=== PATIENT | male | born 1995 | race African-American/Black ===

== ENCOUNTER 2016-04-01 21:37 | Observation (INO) | payer OTHER ==
[~2016-04-01] VITALS: Ht 154.9 cm; Wt 59.2 kg
--- NOTE | 2016-04-01 22:08 | PD ---
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 The patient is not suicidal. He has no physical complaints. He states that he ate dinner tonight. The patient is unable to provide any meaningful history. Youssef act paper work states that the patient is unable to care for himself and therefore at risk for self-harm. PFSH Past Medical History Musculoskeletal: Yes (DANDY WALKER SYNDROME) Social History Alcohol Use: No Tobacco Use: No Substance Use: No Allergies-Medications (Allergen,Severity, Reaction): Coded Allergies: No Known Allergies (Unverified , 04/01/16) Reported Meds & Prescriptions Reported Meds & Active Scripts Active No Active Prescriptions or Reported Medications Review of Systems ROS Limitations: Poor Historian Except as stated in HPI: all other systems reviewed are Neg Physical Exam Exam Limitations: Poor Historian Narrative GENERAL: Diminutive black male in no acute distress. SKIN: Warm and dry. HEAD: Atraumatic. Normocephalic. EYES: Pupils equal and round. No scleral icterus. No injection or drainage. ENT: No nasal bleeding or discharge. Mucous membranes pink and moist. NECK: Trachea midline. No JVD. CARDIOVASCULAR: Regular rate and rhythm. No murmur appreciated. RESPIRATORY: No accessory muscle use. Clear to auscultation. Breath sounds equal bilaterally. GASTROINTESTINAL: Abdomen soft, non-tender, nondistended. Hepatic and splenic margins not palpable. MUSCULOSKELETAL: No clubbing. No cyanosis. No edema. Patient is ambulatory and moves easily from standing to sitting. NEUROLOGICAL: Awake and alert. No obvious cranial nerve deficits. Motor grossly within normal limits. PSYCHIATRIC: Appropriate mood and affect. Intellectual capacity in the range of an 1-31-yndc-old. 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 The patient is not suicidal. He has no physical complaints. The patient is unable to provide any meaningful history. Circadence act paper work states that the patient is unable to care for himself and therefore at risk for self-harm. Vitals reviewed. Physical exam reveals a MR male in no acute distress but is otherwise unremarkable. The patient has the mental capacity of an 6-55-[id number]-old. I don' t see any need for laboratory evaluation at this time. Review of the record reveals the patient left without being seen today. A sitter is with the patient now. DCF has been contacted. Patient will be discharged into their custody. Diagnosis Primary Impression: Encounter for medical screening examination Referrals: Primary Care Physician Scripts No Active Prescriptions or Reported Meds Disposition: 65 DISC TO PSYCH CARE FACILITY (per DCF) Condition: Stable Kelly Jama Apr 01, 2016 22:08
[2016-04-01 22:10] VITALS: BP 164/80; PULSE 97; RESP 14; TEMP 99; O2SAT 96
[2016-04-02 06:04] VITALS: BP 166/99; PULSE 104; RESP 15; O2SAT 100
[2016-04-02 07:48] VITALS: BP 176/81; PULSE 106; RESP 20; O2SAT 99
[2016-04-02 12:47] VITALS: BP 170/99; PULSE 83; RESP 20; O2SAT 99
[2016-04-02 18:21] VITALS: BP 148/94; PULSE 95; RESP 20; O2SAT 98
--- NOTE | 2016-04-02 20:03 | HHI.HP ---
[facility] Service [facility] Primary Care Physician Unknown Admission Diagnosis unsafe discharge Diagnoses: (1) Total self-care deficit Diagnosis: Principal (2) Dandy Walker malformation Diagnosis: Principal (3) Mental retardation Diagnosis: Principal Travel History International Travel<30 Days: No Contact w/Intl Traveler <30 Da: No Traveled to Known Affected Are: No History of Present Illness This is an unfortunate 21-year-old male with PMH of Dandy Walker Syndrome and Mental Retardation was brought to the ER under Youssef Act by PD for placement into long-term facility as patient found wandering in the streets and is unable to care for self. Patient currently without complaints. Case Management and DCF involved. Per CM notes, pt was recently placed in custodial, [facility], however per father pt was kicked out after being there for only 8hrs after harassing another resident, however upon further investigation, [facility] reports pt was not kicked out, he simply wandered off the property as facility is unlocked, report Father was dishonest about pt's cognitive ability and [facility] not equipped to care for patient, Father unwilling to care for pt per report. Seen by DCF in ER, however unable to obtain placement. We were asked to admit pending placement as pt here now for almost 24hrs. Review of Systems Other ROS: 14 point review of systems otherwise negative. Past Family Social History Past Medical History PMH: Dandy Walker Syndrome and Mental Retardation Past Surgical History PAST SURGICAL HISTORY: None Allergies: Coded Allergies: No Known Allergies (Unverified , 04/01/16) Family History PAST FAMILY HISTORY: Reviewed. No h/o DM or CAD Social History PAST SOCIAL HISTORY: Negative for alcohol, tobacco or drugs. Physical Exam Vital Signs Vital Signs Date Time Temp Pulse Resp B/P Pulse Ox O2 Delivery O2 Flow Rate FiO2 04/02/16 18:21 95 20 148/94 98 Room Air 04/02/16 12:47 83 20 170/99 99 Room Air 04/02/16 07:48 106 20 176/81 99 Room Air 04/02/16 06:04 104 15 166/99 100 Room Air 04/01/16 22:17 97 14 04/01/16 22:10 99.0 97 14 164/80 96 Physical Exam PE: GENERAL: Young male in no acute distress, MR, 8yr old mental capacity. HEENT: PERRLA, EOMI. No scleral icterus or conjunctival pallor. No lid lag or facial droop. CARDIOVASCULAR: Regular rate and rhythm. No obvious murmurs to auscultation. No chest tenderness to palpation. RESPIRATORY: No obvious rhonchi or wheezing. Clear to auscultation. Breath sounds equal bilaterally. GASTROINTESTINAL: Abdomen soft, non-tender, nondistended. BS normal. MUSCULOSKELETAL: Extremities without clubbing, cyanosis, or edema. No obvious deformities. NEUROLOGICAL: Awake, alert. MR w/ 8yr old mental capacity. No focal neurologic deficits. Moving both upper and lower extremities spontaneously. Assessment and Plan Problem List: (1) Total self-care deficit ICD Code: R41.89 Status: Acute (2) Dandy Walker malformation ICD Code: Q03.1 Status: Acute (3) Mental retardation ICD Code: F79 Status: Acute Assessment and Plan A/P: 1. Total Self Care Deficit: Brought to ER under Youssef Act by PD for placement as pt found wandering the streets and is unable to care for self. Case Management and DCF involved. Seen by DCF in ER, however placement not obtained. We were asked to admit pending placement as in ER for 24hrs. Sitter at bedside. 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 Will consult for further evaluation. 2. Dandy Walker Malformation: Chronic. 3. Mental Retardation: secondary to above, 8yr old mental capacity. Awake, alert, pleasant at this time. 4. DVT Prophylaxis: SCD/Teds. 5. Social work for d/c planning as needed. Annalisa Martin MD Apr 02, 2016 20:03
[2016-04-02] MEDS ORDERED: ACETAMINOPHEN 325 MG TAB PO PRN (20:15)
[2016-04-02] MEDS ORDERED: BISACODYL 10 MG SUPP PR PRN (20:15)
[2016-04-02] MEDS ORDERED: SODIUM CHLORIDE 0.9% FLUSH 5 ML FLUSH FLUSH PRN (20:15)
[2016-04-02] MEDS ORDERED: ONDANSETRON HCL 4 MG/2 ML VIAL IVP PRN (20:15)
[2016-04-02] MEDS: SODIUM CHLORIDE 0.9% FLUSH 5 ML FLUSH FLUSH SCH (20:24)
[2016-04-02 23:48] VITALS: BP 128/73; PULSE 70; RESP 20; TEMP 98.4; O2SAT 97
[2016-04-03 04:03] VITALS: BP 128/77; PULSE 86; RESP 20; TEMP 98.2
[2016-04-03 08:30] LABS: AUTOMATED NEUTROPHIL # 4.4 TH/MM3 (1.8-7.7); BASOPHIL % 0.2 % (0.0-2.0); EOSINOPHIL % 0.1 % (0.0-4.0); HEMO FLAGS DIFF FINAL; LYMPH % 21.3 % (9.0-44.0); LYMPHOCYTE # 1.3 TH/MM3 (1.0-4.8); MEAN CELL VOLUME 79.8 FL (80.0-100.0); MEAN CORPUSCULAR HEMOGLOBIN 26.6 PG (27.0-34.0); MEAN CORPUSCULAR HGB CONC 33.4 % (32.0-36.0); NEUT % 70.4 % (16.0-70.0); PLATELET COUNT 188 TH/MM3 (150-450); RED BLOOD COUNT 5.89 MIL/MM3 (4.50-5.90); RED CELL DISTRIBUTION WIDTH 13.6 % (11.6-17.2); WHITE BLOOD COUNT 6.2 TH/MM3 (4.0-11.0)
[2016-04-03] MEDS: SODIUM CHLORIDE 0.9% FLUSH 5 ML FLUSH FLUSH SCH ×2 (09:00→20:55)
[2016-04-03] MEDS ORDERED: cloNIDine HCL 0.1 MG TAB PO PRN (09:15)
[2016-04-03 09:19] LABS: BICARBONATE 30.9 MEQ/L (21.0-32.0); POTASSIUM 4.2 MEQ/L (3.5-5.1)
--- NOTE | 2016-04-03 10:42 | HHI.PR ---
Subjective Remarks Follow-up for unsafe discharge. Seen with sitter ambulating the halls. The patient is pleasant. He states that he doesn't have anywhere to live. He denies any acute medical complaints today. He tolerated breakfast with no issues. Objective Vitals Vital Signs Date Time Temp Pulse Resp B/P Pulse Ox O2 Delivery O2 Flow Rate FiO2 04/03/16 04:03 98.2 86 20 128/77 04/02/16 23:48 98.4 70 20 128/73 97 04/02/16 18:21 95 20 148/94 98 Room Air 04/02/16 12:47 83 20 170/99 99 Room Air Result Diagram: 04/03/16 0756 04/03/16 0756 Objective Remarks GENERAL: Well-developed well-nourished. In no acute distress. SKIN: Warm and dry. No lesions noted. HEENT: Normocephalic. Pupils equal and round. Mucous membranes pink and moist. CARDIOVASCULAR: Regular rate and rhythm. No murmur appreciated. RESPIRATORY: No accessory muscle use. Clear to auscultation. Breath sounds equal bilaterally. GASTROINTESTINAL: Abdomen soft, non-tender, nondistended. Bowel sounds x4. MUSCULOSKELETAL: Diminutive stature. No clubbing or cyanosis. No edema. NEUROLOGICAL: Awake and alert. No focal neurological deficits. Moves upper and lower extremities spontaneously. Normal speech. PSYCHIATRIC: Appropriate mood and mentally delayed affect; insight and judgment fair. A/P Problem List: (1) Total self-care deficit ICD Code: R41.89 Status: Acute (2) Dandy Walker malformation ICD Code: Q03.1 Status: Acute (3) Mental retardation ICD Code: F79 Status: Acute Assessment and Plan 21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 Total Self Care Deficit: DCF and case management are involved. Dandy Walker Malformation and mental retardation: Chronic. Reported mental capacity of [id number]. Continue sitter. Mikael act: Mikael acted by the police as patient would be at risk for neglect and harm. Consulted Psychiatry, discussed with Dr. Altamirano, Mikael act lifted, however with the patient's retarded mental capacity he will need placement for safety. Accelerated hypertension: BP was elevated overnight, currently within normal limits. Add Clonidine as needed. DVT Prophylaxis: SCD/Teds. Discharge Planning Discharge planning once safe discharge can be arranged. Jorge Bose Apr 03, 2016 10:42 Mag Elizabeth MD Apr 03, 2016 16:12
--- NOTE | 2016-04-03 13:41 | MB ---
cc: MD BURNS JITENDRA DATE OF CONSULTATION: 04/03/2016. HISTORY OF PRESENT ILLNESS: This is a 21-year-old black male who according to the chart has a history of Dandy-Walker syndrome with mental retardation. He was brought to the emergency room and then I understand that he eloped and police brought him back and Youssef Acted him for placement into a longer term facility. The patient was found wandering in the street and was unable to care for himself. The patient is not complaining of anything. The patient denied any suicidal and/or homicidal ideation, intentions or plans. The patient denied any behavior or management problem except that he wanders on the street. He needs some kind of supervised setting to look after him. He denied any auditory or visual hallucinations. He was laughing inappropriately and sometimes seemed like he is in his own world. BACKGROUND HISTORY: The patient was born in [place]. He knew he was in [facility]. He claimed that he is the only child. He denied any physical, verbal or sexual abuse growing up. He did go into some kind of special school and did finish high school. He denied any alcohol or drug use and/or abuse. He denied any legal difficulty. He denied having any children. PAST PSYCHIATRIC HISTORY: The patient denied any inpatient psychiatric hospitalization. MENTAL STATUS EXAMINATION: This is a 21-year-old black male who looks about the same as his stated age. He was alert, oriented x2, cooperative, casually dressed. His speech was slow and monosyllabic without any evidence of loose association. His mood was described as feeling fine. His affect was inappropriate and laughing sometimes to himself. He denied any suicidal and/or homicidal ideation, intentions or plans. Denied any active auditory or visual hallucinations. There was no evidence of any paranoid delusion. He seems to be of below average intelligence with poor concentration and poor memory. His insight is limited and his judgment seems to be poor. History of mental retardation. RECOMMENDATIONS: At this time in my opinion, the patient does not meet the Youssef Act criteria; however, he does lack capacity and needs to be placed in a supervised setting. I understand that he is involved in case management and DCF and they need to find an appropriate place for him so he can be cared for. Thank you very much for allowing me to participate in the care of this patient. Romaine PALM /10:37 AM /1:35 PM
[2016-04-03 13:43] VITALS: BP 155/96; PULSE 102; RESP 16; TEMP 98.7; O2SAT 99
[2016-04-03 16:39] VITALS: BP 133/96; PULSE 72; RESP 18; O2SAT 97
[2016-04-03 20:10] VITALS: BP 140/97; PULSE 77; RESP 20; TEMP 98.4; O2SAT 98
[2016-04-03 23:08] VITALS: BP 155/97; PULSE 78; RESP 20; TEMP 98; O2SAT 97
[2016-04-04 03:55] VITALS: BP 136/96; PULSE 76; RESP 20; TEMP 98.2; O2SAT 96
[2016-04-04 07:40] VITALS: BP 147/104; PULSE 96; RESP 16; O2SAT 96
--- NOTE | 2016-04-04 08:04 | HHI.PR ---
Subjective Remarks Follow-up for unsafe discharge. The patient has been ambulating around the halls. He denies anything that is making him upset. No complaints today. He states he doesn't take any medications at home. He denies any medical problems or history of high blood pressure. Objective Vitals Vital Signs Date Time Temp Pulse Resp B/P Pulse Ox O2 Delivery O2 Flow Rate FiO2 04/04/16 07:40 96 16 147/104 96 04/04/16 03:55 98.2 76 20 136/96 96 04/03/16 23:08 98.0 78 20 155/97 97 04/03/16 20:10 98.4 77 20 140/97 98 04/03/16 16:39 72 18 133/96 97 04/03/16 13:43 98.7 102 16 155/96 99 Result Diagram: 04/03/16 0756 04/03/16 0756 Objective Remarks GENERAL: Well-developed well-nourished. In no acute distress. SKIN: Warm and dry. No lesions noted. HEENT: Normocephalic. Pupils equal and round. Mucous membranes pink and moist. CARDIOVASCULAR: Regular rate and rhythm. No murmur appreciated. RESPIRATORY: No accessory muscle use. Clear to auscultation. Breath sounds equal bilaterally. GASTROINTESTINAL: Abdomen soft, non-tender, nondistended. Bowel sounds x4. MUSCULOSKELETAL: Diminutive stature. No clubbing or cyanosis. No edema. NEUROLOGICAL: Awake and alert. No focal neurological deficits. Moves upper and lower extremities spontaneously. Normal speech. PSYCHIATRIC: Appropriate mood and mentally delayed affect; insight and judgment fair. 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 Total Self Care Deficit: DCF and case management are involved. Dandy Walker Malformation and mental retardation: Chronic. Reported mental capacity of [id number]. Continue sitter. Ativan if needed. Youssef act: Mikael acted by the police as patient would be at risk for neglect and harm. Consulted Psychiatry, discussed with Mikael Duke act lifted, however with the patient's retarded mental capacity he will need placement for safety. Elevated BP: BP is not optimally controlled. Secondary to stress of being in the hospital? Clonidine as needed. Consider adding low-dose amlodipine in the a.m. if BP continues to remain elevated. DVT Prophylaxis: SCD/Teds. Discharge Planning Discharge planning once safe discharge can be arranged. Jorge Bose Apr 04, 2016 08:04 Mag Elizabeth MD Apr 04, 2016 16:19
[2016-04-04] MEDS: SODIUM CHLORIDE 0.9% FLUSH 5 ML FLUSH FLUSH SCH ×2 (09:00→21:00)
[2016-04-04 11:25] VITALS: BP 157/97; PULSE 96; RESP 16; TEMP 97.8; O2SAT 95
[2016-04-04] MEDS ORDERED: PILL SPLITTER OTHER PRN (14:15)
[2016-04-04 15:51] VITALS: BP 158/93; PULSE 66; RESP 16; TEMP 96.5; O2SAT 98
[2016-04-04] MEDS: amLODIPine BESYLATE 5 MG TAB PO SCH (18:36)
[2016-04-04 19:50] VITALS: BP 147/91; PULSE 85; RESP 20; TEMP 98.4; O2SAT 97
[2016-04-05 00:08] VITALS: BP 150/90; PULSE 82; RESP 20; TEMP 98.4; O2SAT 95
[2016-04-05 04:16] VITALS: BP 146/89; PULSE 85; RESP 20; TEMP 98.4; O2SAT 97
--- NOTE | 2016-04-05 09:19 | HHI.PR ---
Subjective Remarks Follow up for unsafe discharge. The patient states he has been walking around, sitter at bedside confirms this. No acute events overnight. He states he enjoyed the pasta for dinner last night and he is awaiting breakfast. He has no medical complaints. Objective Vitals Vital Signs Date Time Temp Pulse Resp B/P Pulse Ox O2 Delivery O2 Flow Rate FiO2 04/05/16 04:16 98.4 85 20 146/89 97 04/05/16 00:08 98.4 82 20 150/90 95 04/04/16 19:50 98.4 85 20 147/91 97 04/04/16 15:51 96.5 66 16 158/93 98 04/04/16 11:25 97.8 96 16 157/97 95 Result Diagram: 04/03/16 0756 04/03/16 0756 Objective Remarks GENERAL: Well-nourished, well-developed pleasant young male patient in [facility]. SKIN: Warm and dry. No rash. HEAD: Normocephalic. Atraumatic. EYES: Pupils equal and round. No scleral icterus. No injection or drainage. ENT: No nasal bleeding or discharge. Mucous membranes pink and moist. NECK: Supple. Trachea midline. CARDIOVASCULAR: Regular rate and rhythm. S1, S2 noted. No murmur appreciated. RESPIRATORY: No accessory muscle use. Clear to auscultation. Breath sounds equal bilaterally. GASTROINTESTINAL: Abdomen soft, non-tender, nondistended. Normoactive bowel sounds x4. MUSCULOSKELETAL: No obvious deformities. Extremities without clubbing, cyanosis , or edema. NEUROLOGICAL: Awake and alert. No obvious cranial nerve deficits. Motor grossly within normal limits. Moves all extremities spontaneously. Normal speech. PSYCHIATRIC: Appropriate mood, intellectually delayed affect; insight and judgment fair. Medications and IVs Current Medications Medications (Trade) Dose Ordered Sig/Carol Route Start Time Stop Time Status Last Admin (NS Flush) 2 ml UNSCH PRN FLUSH 04/02/16 20:15 (NS Flush) 2 ml BID FLUSH 04/02/16 21:00 04/03/16 09:00 (Dulcolax Supp) 10 mg DAILY PRN [place] 04/02/16 20:15 (Tylenol) 650 mg Q6H PRN PO 04/02/16 20:15 (Catapres) 0.1 mg Q6H PRN PO 04/03/16 09:15 (Ativan) 0.5 mg Q6H PRN PO 04/04/16 08:00 (Norvasc) 2.5 mg DAILY PO 04/04/16 14:15 04/04/16 18:36 (Pill Splitter) 1 ea UNSCH PRN OTHER 04/04/16 14:15 Urinary Catheter: No Vascular Central Line Catheter: No A/P Problem List: (1) Total self-care deficit ICD Code: R41.89 Status: Acute (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 Total Self Care Deficit: DCF and case management are involved. Needs placement. 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 Reported mental capacity of [id number]. Continue sitter. Ativan if needed. Mikael act: Mikael acted by the police as patient would be at risk for neglect and harm. Consulted Psychiatry, discussed with Dr. Altamirano, Mikael act lifted, however with the patient's retarded mental capacity, he will need placement for safety. Elevated BP: BP is not optimally controlled. Secondary to stress of being in the hospital? Clonidine as needed. Added low-dose amlodipine. Monitor BP. DVT Prophylaxis: SCD/Teds. Ambulation. Written by Alma Rosa Saleem, acting as scribe for Dr. Elizabeth on 04/05/16 at 08: 40. The documentation accurately reflects the work performed [id number] by dc Dr. Elizabeth on 04/05/16 at 08:40. Discharge Planning Discharge pending placement. Alma Rosa Saleem PA-C Apr 05, 2016 09:19 Mag Elizabeth MD Apr 07, 2016 22:49
[2016-04-05] MEDS: SODIUM CHLORIDE 0.9% FLUSH 5 ML FLUSH FLUSH SCH ×2 (10:04→21:00)
[2016-04-05] MEDS: amLODIPine BESYLATE 5 MG TAB PO SCH (10:05)
[2016-04-05 11:35] VITALS: BP 153/89; PULSE 83; RESP 18; TEMP 97.8; O2SAT 95
[2016-04-05 17:55] VITALS: BP 120/89; PULSE 60; RESP 18; TEMP 98.6; O2SAT 95
[2016-04-05 20:04] VITALS: BP 160/98; PULSE 86; RESP 20; TEMP 97.4; O2SAT 97
[2016-04-06] VITALS (7 sets, daily range): BP systolic 139–192; BP diastolic 77–118; PULSE 69–107; RESP 18; TEMP 97.9–98.5; O2SAT 97–100
[2016-04-06] MEDS: amLODIPine BESYLATE 5 MG TAB PO SCH (08:45)
[2016-04-06] MEDS: SODIUM CHLORIDE 0.9% FLUSH 5 ML FLUSH FLUSH SCH ×2 (09:00→19:57)
--- NOTE | 2016-04-06 10:31 | HHI.PR ---
Subjective Remarks Follow up for unsafe discharge. The patient was seen ambulating the hallway with the sitter. No acute events overnight. The patient denies any medical complaints. Patient is very pleasant. Objective Vitals Vital Signs Date Time Temp Pulse Resp B/P Pulse Ox O2 Delivery O2 Flow Rate FiO2 04/06/16 07:43 98.1 80 18 147/91 98 04/06/16 05:40 69 18 162/90 97 04/06/16 01:47 98.1 70 18 163/86 97 04/05/16 20:04 97.4 86 20 160/98 97 04/05/16 17:55 98.6 60 18 120/89 95 04/05/16 11:35 97.8 83 18 153/89 95 Result Diagram: 04/03/16 0756 04/03/16 0756 Objective Remarks GENERAL: Well-nourished, well-developed pleasant young male patient in [facility]. SKIN: Warm and dry. No rash. HEAD: Normocephalic. Atraumatic. NECK: Supple. Trachea midline. CARDIOVASCULAR: Regular rate and rhythm. S1, S2 noted. No murmur appreciated. RESPIRATORY: No accessory muscle use. Clear to auscultation. Breath sounds equal bilaterally. GASTROINTESTINAL: Abdomen soft, non-tender, nondistended. Normoactive bowel sounds x4. MUSCULOSKELETAL: No obvious deformities. Extremities without clubbing, cyanosis , or edema. NEUROLOGICAL: Awake and alert. No obvious cranial nerve deficits. Motor grossly within normal limits. Moves all extremities spontaneously. Normal speech. PSYCHIATRIC: Appropriate mood, intellectually delayed affect; insight and judgment fair. Medications and IVs Current Medications Medications (Trade) Dose Ordered Sig/Carol Route Start Time Stop Time Status Last Admin (NS Flush) 2 ml UNSCH PRN FLUSH 04/02/16 20:15 (NS Flush) 2 ml BID FLUSH 04/02/16 21:00 04/03/16 09:00 (Dulcolax Supp) 10 mg DAILY PRN [place] 04/02/16 20:15 (Tylenol) 650 mg Q6H PRN PO 04/02/16 20:15 (Catapres) 0.1 mg Q6H PRN PO 04/03/16 09:15 (Ativan) 0.5 mg Q6H PRN PO 04/04/16 08:00 (Pill Splitter) 1 ea UNSCH PRN OTHER 04/04/16 14:15 (Norvasc) 5 mg DAILY PO 04/06/16 09:00 04/06/16 08:45 Urinary Catheter: No Vascular Central Line Catheter: No A/P Problem List: (1) Total self-care deficit ICD Code: R41.89 Status: Acute (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 Total Self Care Deficit: DCF and case management are involved. Needs placement. 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 Reported mental capacity of [id number]. Continue sitter. Ativan if needed. Mikael act: Mikael acted by the police as patient would be at risk for neglect and harm. Consulted Psychiatry, discussed with Dr. Altamirano, Mikael act lifted, however with the patient's retarded mental capacity, he will need placement for safety. Elevated BP: BP is not optimally controlled. Secondary to stress of being in the hospital? Clonidine as needed. Added low-dose amlodipine. Monitor BP. DVT Prophylaxis: SCD/Teds. Ambulation. Written by Alma Rosa Saleem, acting as scribe for Dr. Elizabeth on 04/06/16 at 08: 10. The documentation accurately reflects the work performed [id number] by mo Dr. Elizabeth on 04/06/16 at 08:10. Discharge Planning Discharge pending placement. Alma Rosa Saleem PA-C Apr 06, 2016 10:31 Mag Elizabeth MD Apr 06, 2016 15:28
[2016-04-06] MEDS: LORazepam 0.5 MG TAB PO PRN (23:01)
[2016-04-07] MEDS ORDERED: TEMAZEPAM 7.5 MG CAP PO ONE (02:15)
[2016-04-07] MEDS ORDERED: HALOPERIDOL LACTATE 5 MG/ML AMP IM ONE (05:15)
[2016-04-07] MEDS: amLODIPine BESYLATE 5 MG TAB PO SCH (09:38)
--- NOTE | 2016-04-07 12:09 | HHI.PR ---
Subjective Remarks Follow up for unsafe discharge. The patient is pleasant, cooperative, seen ambulating the unit with the sitter. Reportedly last night the patient tried to leave the unit and became agitated when brought back to the room. Sitter at bedside states the patient does get bored easily and tries to walk off the unit but is redirectable. The patient himself has no medical complaints. He is tolerating oral intake. He is pleasant, asks when he can go back to school. Objective Vitals Vital Signs Date Time Temp Pulse Resp B/P Pulse Ox O2 Delivery O2 Flow Rate FiO2 04/06/16 23:16 96 18 192/118 100 04/06/16 19:52 97.9 86 18 155/82 99 04/06/16 14:57 98.5 88 18 139/77 98 Result Diagram: 04/03/16 0756 04/03/16 0756 Objective Remarks GENERAL: Well-nourished, well-developed pleasant young male patient in [facility]. SKIN: Warm and dry. No rash. HEAD: Normocephalic. Atraumatic. NECK: Supple. Trachea midline. CARDIOVASCULAR: Regular rate and rhythm. S1, S2 noted. No murmur appreciated. RESPIRATORY: No accessory muscle use. Clear to auscultation. Breath sounds equal bilaterally. GASTROINTESTINAL: Abdomen soft, non-tender, nondistended. Normoactive bowel sounds x4. MUSCULOSKELETAL: No obvious deformities. Extremities without clubbing, cyanosis , or edema. NEUROLOGICAL: Awake and alert. No obvious cranial nerve deficits. Motor grossly within normal limits. Moves all extremities spontaneously. Normal speech. PSYCHIATRIC: Appropriate mood, intellectually delayed affect; insight and judgment fair. Medications and IVs Current Medications Medications (Trade) Dose Ordered Sig/Carol Route Start Time Stop Time Status Last Admin (NS Flush) 2 ml UNSCH PRN FLUSH 04/02/16 20:15 (NS Flush) 2 ml BID FLUSH 04/02/16 21:00 04/03/16 09:00 (Dulcolax Supp) 10 mg DAILY PRN [place] 04/02/16 20:15 (Tylenol) 650 mg Q6H PRN PO 04/02/16 20:15 (Catapres) 0.1 mg Q6H PRN PO 04/03/16 09:15 (Ativan) 0.5 mg Q6H PRN PO 04/04/16 08:00 04/06/16 23:01 (Pill Splitter) 1 ea UNSCH PRN OTHER 04/04/16 14:15 (Norvasc) 5 mg DAILY PO 04/06/16 09:00 04/07/16 09:38 Urinary Catheter: No Vascular Central Line Catheter: No A/P Problem List: (1) Total self-care deficit ICD Code: R41.89 Status: Acute (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 Total Self Care Deficit: DCF and case management are involved. Needs placement. 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 Reported mental capacity of [id number]. Continue sitter. Ativan if needed. Mikael act: Mikael acted by the police as patient would be at risk for neglect and harm. Consulted Psychiatry, discussed with Dr. Altamirano, Mikael act lifted, however with the patient's retarded mental capacity, he will need placement for safety. Elevated BP: BP is not optimally controlled. Secondary to stress of being in the hospital? Clonidine as needed. Added low-dose amlodipine. Monitor BP. DVT Prophylaxis: SCD/Teds. Ambulation. Discharge Planning Discharge pending placement. Alma Rosa Saleem PA-C Apr 07, 2016 12:09 Mag Elizabeth MD Apr 07, 2016 20:49
[2016-04-07 12:14] VITALS: BP 136/81; PULSE 112; RESP 18; TEMP 98; O2SAT 98
[2016-04-07 16:45] VITALS: BP 144/84; PULSE 116; RESP 18; TEMP 98.7; O2SAT 97
[2016-04-07 19:21] VITALS: BP 168/98; PULSE 100; RESP 20; TEMP 97.6; O2SAT 93
[2016-04-07] MEDS: SODIUM CHLORIDE 0.9% FLUSH 5 ML FLUSH FLUSH SCH (21:00)
[2016-04-07 23:27] VITALS: BP 137/92; PULSE 100; RESP 20; TEMP 97.6; O2SAT 99
[2016-04-08 03:45] VITALS: BP 143/96; PULSE 99; RESP 20; TEMP 97.6; O2SAT 98
[2016-04-08 07:59] VITALS: BP 155/90; PULSE 89; RESP 16; TEMP 98.1; O2SAT 99
--- NOTE | 2016-04-08 08:22 | HHI.PR ---
Subjective Remarks Follow up for unsafe discharge. The patient tried to run off the unit yesterday , required restraints, now resting comfortably in bed. He is pleasant, asking for a bath and to watch [employer] on tv. He has no medical complaints. Denies any pain. Objective Vitals Vital Signs Date Time Temp Pulse Resp B/P Pulse Ox O2 Delivery O2 Flow Rate FiO2 04/08/16 07:59 98.1 89 16 155/90 99 04/08/16 03:45 97.6 99 20 143/96 98 04/07/16 23:27 97.6 100 20 137/92 99 04/07/16 19:21 97.6 100 20 168/98 93 04/07/16 16:45 98.7 116 18 144/84 97 04/07/16 12:14 98.0 112 18 136/81 98 I/O 04/07/16 04/07/16 04/07/16 04/08/16 04/08/16 04/08/16 06:59 14:59 22:59 06:59 14:59 22:59 Intake Total 700 ml Output Total 900 ml Balance -200 ml Intake Oral 700 ml Output Urine Total 900 ml Stool Total 0 ml # Bowel Movements 1 Objective Remarks GENERAL: Well-nourished, well-developed pleasant young male patient in [facility]. SKIN: Warm and dry. No rash. HEAD: Normocephalic. Atraumatic. NECK: Supple. Trachea midline. CARDIOVASCULAR: Regular rate and rhythm. S1, S2 noted. No murmur appreciated. RESPIRATORY: No accessory muscle use. Clear to auscultation. Breath sounds equal bilaterally. GASTROINTESTINAL: Abdomen soft, non-tender, nondistended. Normoactive bowel sounds x4. MUSCULOSKELETAL: No obvious deformities. Extremities without clubbing, cyanosis , or edema. NEUROLOGICAL: Awake and alert. No obvious cranial nerve deficits. Motor grossly within normal limits. Moves all extremities spontaneously. Normal speech. PSYCHIATRIC: Appropriate mood, intellectually delayed affect; insight and judgment fair. Medications and IVs Current Medications Medications (Trade) Dose Ordered Sig/Carol Route Start Time Stop Time Status Last Admin (NS Flush) 2 ml UNSCH PRN FLUSH 04/02/16 20:15 (NS Flush) 2 ml BID FLUSH 04/02/16 21:00 04/03/16 09:00 (Dulcolax Supp) 10 mg DAILY PRN [place] 04/02/16 20:15 (Tylenol) 650 mg Q6H PRN PO 04/02/16 20:15 (Catapres) 0.1 mg Q6H PRN PO 04/03/16 09:15 (Ativan) 0.5 mg Q6H PRN PO 04/04/16 08:00 04/06/16 23:01 (Pill Splitter) 1 ea UNSCH PRN OTHER 04/04/16 14:15 (Norvasc) 5 mg DAILY PO 04/06/16 09:00 04/07/16 09:38 Urinary Catheter: No Vascular Central Line Catheter: No A/P Problem List: (1) Total self-care deficit ICD Code: R41.89 Status: Acute (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 Total Self Care Deficit: DCF and case management are involved. Needs placement. 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 Reported mental capacity of [id number]. Continue sitter. Ativan if needed. Mikael act: Mikael acted by the police as patient would be at risk for neglect and harm. Consulted Psychiatry, discussed with Dr. Altamirano, Mikael act lifted, however with the patient's retarded mental capacity, he will need placement for safety. Elevated BP: BP is not optimally controlled. Secondary to stress of being in the hospital? Clonidine as needed. Added low-dose amlodipine. Monitor BP. DVT Prophylaxis: SCD/Teds. Ambulation. Discharge Planning Discharge pending placement. Alma Rosa Saleem PA-C Apr 08, 2016 08:22 Shan Morris MD Apr 14, 2016 20:13
[2016-04-08] MEDS: SODIUM CHLORIDE 0.9% FLUSH 5 ML FLUSH FLUSH SCH ×2 (09:00→21:00)
[2016-04-08] MEDS: amLODIPine BESYLATE 5 MG TAB PO SCH (11:03)
[2016-04-08 12:08] VITALS: BP 142/99; PULSE 95; RESP 16; TEMP 97.6; O2SAT 99
[2016-04-08 20:00] VITALS: BP 122/68; PULSE 88; RESP 20; TEMP 97; O2SAT 99
[2016-04-09] VITALS: BP 140/84; PULSE 80; RESP 24; TEMP 96.9; O2SAT 94
[2016-04-09 06:40] VITALS: BP 112/61; PULSE 78; RESP 20; TEMP 96.2; O2SAT 98
[2016-04-09 08:00] VITALS: BP 132/76; PULSE 82; RESP 20; TEMP 97.3; O2SAT 100
[2016-04-09] MEDS: amLODIPine BESYLATE 5 MG TAB PO SCH (08:32)
[2016-04-09] MEDS: SODIUM CHLORIDE 0.9% FLUSH 5 ML FLUSH FLUSH SCH ×2 (08:33→21:00)
[2016-04-09 12:00] VITALS: BP 129/76; PULSE 78; RESP 20; TEMP 96.7; O2SAT 98
--- NOTE | 2016-04-09 12:21 | HHI.PR ---
Subjective Remarks no major overnight events denies cp/sob denies fevers/chills no diarrhea Objective Vitals Vital Signs Date Time Temp Pulse Resp B/P Pulse Ox O2 Delivery O2 Flow Rate FiO2 04/09/16 12:00 96.7 78 20 129/76 98 04/09/16 08:00 97.3 82 20 132/76 100 04/09/16 06:40 96.2 78 20 112/61 98 04/09/16 00:00 96.9 80 24 140/84 94 04/08/16 20:00 97.0 88 20 122/68 99 I/O 04/08/16 04/08/16 04/08/16 04/09/16 04/09/16 04/09/16 06:59 14:59 22:59 06:59 14:59 22:59 Intake Total 240 ml Balance 240 ml Intake Oral 240 ml # Voids 2 2 # Bowel Movements 1 0 0 Objective Remarks GENERAL: Well-nourished, well-developed pleasant young male patient in [facility]. SKIN: Warm and dry. No rash. HEAD: Normocephalic. Atraumatic. NECK: Supple. Trachea midline. CARDIOVASCULAR: Regular rate and rhythm. S1, S2 noted. No murmur appreciated. RESPIRATORY: No accessory muscle use. Clear to auscultation. Breath sounds equal bilaterally. GASTROINTESTINAL: Abdomen soft, non-tender, nondistended. Normoactive bowel sounds x4. MUSCULOSKELETAL: No obvious deformities. Extremities without clubbing, cyanosis , or edema. NEUROLOGICAL: Awake and alert. No obvious cranial nerve deficits. Motor grossly within normal limits. Moves all extremities spontaneously. Normal speech. PSYCHIATRIC: Appropriate mood, intellectually delayed affect; insight and judgment fair. Medications and IVs Current Medications Medications (Trade) Dose Ordered Sig/Carol Route Start Time Stop Time Status Last Admin (NS Flush) 2 ml UNSCH PRN FLUSH 04/02/16 20:15 (NS Flush) 2 ml BID FLUSH 04/02/16 21:00 04/03/16 09:00 (Dulcolax Supp) 10 mg DAILY PRN [place] 04/02/16 20:15 (Tylenol) 650 mg Q6H PRN PO 04/02/16 20:15 (Catapres) 0.1 mg Q6H PRN PO 04/03/16 09:15 04/08/16 18:10 (Ativan) 0.5 mg Q6H PRN PO 04/04/16 08:00 04/06/16 23:01 (Pill Splitter) 1 ea UNSCH PRN OTHER 04/04/16 14:15 (Norvasc) 5 mg DAILY PO 04/06/16 09:00 04/09/16 08:32 A/P Problem List: (1) Total self-care deficit ICD Code: R41.89 Status: Acute (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 Total Self Care Deficit: DCF and case management are involved. Needs placement. 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 Reported mental capacity of [id number]. Continue sitter. Ativan if needed. Mikael act: Mikael acted by the police as patient would be at risk for neglect and harm. Consulted Psychiatry, discussed with Dr. Altamirano, Mikael act lifted, however with the patient's retarded mental capacity, he will need placement for safety. Elevated BP: BP is not optimally controlled. Secondary to stress of being in the hospital? Clonidine as needed. Added low-dose amlodipine. Monitor BP. DVT Prophylaxis: SCD/Teds. Ambulation. Shan Morris MD Apr 09, 2016 12:20
[2016-04-09 16:00] VITALS: BP 133/84; PULSE 97; RESP 20; TEMP 98.3; O2SAT 96
[2016-04-09 20:00] VITALS: BP 151/92; PULSE 75; RESP 20; TEMP 96.9; O2SAT 97
[2016-04-10] VITALS: BP 131/77; PULSE 60; RESP 20; TEMP 97; O2SAT 100
[2016-04-10 06:28] VITALS: BP 131/79; PULSE 73; RESP 20; TEMP 97; O2SAT 97
[2016-04-10 08:59] VITALS: BP 160/98; PULSE 80; RESP 20; TEMP 95.5; O2SAT 96
[2016-04-10] MEDS: SODIUM CHLORIDE 0.9% FLUSH 5 ML FLUSH FLUSH SCH ×2 (09:00→21:00)
[2016-04-10] MEDS: amLODIPine BESYLATE 5 MG TAB PO SCH (09:35)
[2016-04-10 11:30] VITALS: BP 154/82; PULSE 104; RESP 18; TEMP 98.7; O2SAT 100
[2016-04-10 15:30] VITALS: BP 143/82; PULSE 83; RESP 18; TEMP 97.5; O2SAT 99
--- NOTE | 2016-04-10 16:30 | HHI.PR ---
Subjective Remarks Patient is sitting in chair. Denies chest pain/shortness of breath. Denies fevers or chills. Denies diarrhea Denies constipation Objective Vitals Vital Signs Date Time Temp Pulse Resp B/P Pulse Ox O2 Delivery O2 Flow Rate FiO2 04/10/16 15:30 97.5 83 18 143/82 99 04/10/16 11:30 98.7 104 18 154/82 100 04/10/16 08:59 95.5 80 20 160/98 96 04/10/16 06:28 97.0 73 20 131/79 97 04/10/16 00:00 97.0 60 20 131/77 100 04/09/16 20:00 96.9 75 20 151/92 97 I/O 04/09/16 04/09/16 04/09/16 04/10/16 04/10/16 04/10/16 06:59 14:59 22:59 06:59 14:59 22:59 Intake Total 720 ml 0 ml Output Total 2 ml Balance 718 ml 0 ml Intake Oral 720 ml IV Total 0 ml Output Urine Total 2 ml # Voids 2 2 # Bowel Movements 0 0 0 Objective Remarks GENERAL: Well-nourished, well-developed pleasant young male patient in [facility]. SKIN: Warm and dry. No rash. HEAD: Normocephalic. Atraumatic. NECK: Supple. Trachea midline. CARDIOVASCULAR: Regular rate and rhythm. S1, S2 noted. No murmur appreciated. RESPIRATORY: No accessory muscle use. Clear to auscultation. Breath sounds equal bilaterally. GASTROINTESTINAL: Abdomen soft, non-tender, nondistended. Normoactive bowel sounds x4. MUSCULOSKELETAL: No obvious deformities. Extremities without clubbing, cyanosis , or edema. NEUROLOGICAL: Awake and alert. No obvious cranial nerve deficits. Motor grossly within normal limits. Moves all extremities spontaneously. Normal speech. PSYCHIATRIC: Appropriate mood, intellectually delayed affect; insight and judgment fair. Medications and IVs Current Medications Medications (Trade) Dose Ordered Sig/Carol Route Start Time Stop Time Status Last Admin (NS Flush) 2 ml UNSCH PRN FLUSH 04/02/16 20:15 (NS Flush) 2 ml BID FLUSH 04/02/16 21:00 04/03/16 09:00 (Dulcolax Supp) 10 mg DAILY PRN [place] 04/02/16 20:15 (Tylenol) 650 mg Q6H PRN PO 04/02/16 20:15 (Catapres) 0.1 mg Q6H PRN PO 04/03/16 09:15 04/08/16 18:10 (Ativan) 0.5 mg Q6H PRN PO 04/04/16 08:00 04/06/16 23:01 (Pill Splitter) 1 ea UNSCH PRN OTHER 04/04/16 14:15 (Norvasc) 5 mg DAILY PO 04/06/16 09:00 04/10/16 09:35 Urinary Catheter: No Vascular Central Line Catheter: No A/P Problem List: (1) Total self-care deficit ICD Code: R41.89 Status: Acute (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 Total Self Care Deficit: DCF and case management are involved. Needs placement. 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 Reported mental capacity of [id number]. Continue sitter. Ativan if needed. Mikael act: Mikael acted by the police as patient would be at risk for neglect and harm. Consulted Psychiatry, discussed with Dr. Altamirano, Mikael act lifted, however with the patient's retarded mental capacity, he will need placement for safety. Elevated BP: BP is not optimally controlled. Secondary to stress of being in the hospital? Clonidine as needed. Added low-dose amlodipine. Monitor BP. DVT Prophylaxis: SCD/Teds. Ambulation. Shan Morris MD Apr 10, 2016 16:30
[2016-04-10 20:36] VITALS: BP 146/93; PULSE 83; RESP 18; TEMP 97.8; O2SAT 98
[2016-04-11] VITALS: BP 130/77; PULSE 63; RESP 18; TEMP 97.4; O2SAT 100
[2016-04-11 04:04] VITALS: BP 119/68; PULSE 84; RESP 18; TEMP 97.4; O2SAT 99
[2016-04-11 08:37] VITALS: BP 130/87; PULSE 77; RESP 19; TEMP 96.4; O2SAT 99
[2016-04-11] MEDS: SODIUM CHLORIDE 0.9% FLUSH 5 ML FLUSH FLUSH SCH ×2 (10:29→21:00)
[2016-04-11] MEDS: amLODIPine BESYLATE 5 MG TAB PO SCH (10:29)
[2016-04-11 11:59] VITALS: BP 152/88; PULSE 89; RESP 20; TEMP 98.1; O2SAT 99
--- NOTE | 2016-04-11 12:34 | HHI.PR ---
Subjective Remarks Follow-up for unsafe discharge. Discussed with RN, patient has been ambulating the halls, no acute issues. The patient is eating lunch today, no acute complaints, he is happy. Objective Vitals Vital Signs Date Time Temp Pulse Resp B/P Pulse Ox O2 Delivery O2 Flow Rate FiO2 04/11/16 11:59 98.1 89 20 152/88 99 04/11/16 08:37 96.4 77 19 130/87 99 04/11/16 04:04 97.4 84 18 119/68 99 04/11/16 00:00 97.4 63 18 130/77 100 04/10/16 20:36 97.8 83 18 146/93 98 04/10/16 15:30 97.5 83 18 143/82 99 I/O 04/10/16 04/10/16 04/10/16 04/11/16 04/11/16 04/11/16 07:00 15:00 23:00 07:00 15:00 23:00 Intake Total 0 ml 960 ml 240 ml Balance 0 ml 960 ml 240 ml Intake Oral 960 ml 240 ml IV Total 0 ml # Voids 2 3 1 # Bowel Movements 0 Objective Remarks GENERAL: Well-developed well-nourished. In no acute distress. SKIN: Warm and dry. No lesions noted. HEENT: Normocephalic. Pupils equal and round. Mucous membranes pink and moist. CARDIOVASCULAR: Regular rate and rhythm. No murmur appreciated. RESPIRATORY: No accessory muscle use. Clear to auscultation. Breath sounds equal bilaterally. GASTROINTESTINAL: Abdomen soft, non-tender, nondistended. Bowel sounds x4. MUSCULOSKELETAL: Diminutive stature. No clubbing or cyanosis. No edema. NEUROLOGICAL: Awake and alert. No focal neurological deficits. Moves upper and lower extremities spontaneously. Normal speech. PSYCHIATRIC: Appropriate mood and mentally delayed affect; insight and judgment fair. 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 Total Self Care Deficit: DCF and case management are involved. Dandy Walker Malformation and mental retardation: Chronic. Reported mental capacity of [id number]. Continue sitter. Ativan and restraints if unable to verbally redirect, however currently doing well with no behavior issues. Mikael act: Mikael acted by the police as patient would be at risk for neglect and harm. Consulted Psychiatry, seen by Dr. Altamirano, Mikael act lifted, however with the patient's retarded mental capacity he will need placement for safety. Hypertension: BP is reasonably controlled. Sometimes labile and elevated, likely secondary to stress of being in the hospital. Started on amlodipine with good response. Clonidine as needed. DVT Prophylaxis: SCD/Teds. Discharge Planning Discharge planning once safe discharge can be arranged. Jorge Bose Apr 11, 2016 12:34 pm Emeterio Bailey DO Apr 11, 2016 5:12 pm
[2016-04-11 15:39] VITALS: BP 138/89; PULSE 69; RESP 18; TEMP 97.9; O2SAT 98
[2016-04-11 20:00] VITALS: BP 142/60; PULSE 82; RESP 16; TEMP 98.9; O2SAT 95
[2016-04-12] VITALS (7 sets, daily range): BP systolic 115–142; BP diastolic 67–96; PULSE 62–80; RESP 14–20; TEMP 95.8–98.8; O2SAT 95–100
--- NOTE | 2016-04-12 08:54 | HHI.PR ---
Subjective Remarks Follow up for unsafe discharge. Discussed with FLAME CHANNELER, no acute concerns overnight. The patient is sleeping in bed upon my arrival. Ate his entire breakfast. He has no complaints. Pleasant and happy. Objective Vitals Vital Signs Date Time Temp Pulse Resp B/P Pulse Ox O2 Delivery O2 Flow Rate FiO2 04/12/16 08:00 97.3 62 19 121/71 99 04/12/16 04:00 98.8 70 14 130/70 99 04/12/16 00:00 97.6 80 14 140/80 98 04/11/16 20:00 98.9 82 16 142/60 95 04/11/16 15:39 97.9 69 18 138/89 98 04/11/16 11:59 98.1 89 20 152/88 99 I/O 04/11/16 04/11/16 04/11/16 04/12/16 04/12/16 04/12/16 07:00 15:00 23:00 07:00 15:00 23:00 Intake Total 240 ml 1200 ml 320 ml Output Total 4 ml Balance 240 ml 1196 ml 320 ml Intake Oral 240 ml 1200 ml 320 ml Output Urine Total 4 ml # Voids 1 1 3 Objective Remarks GENERAL: Well-nourished, well-developed pleasant young male patient in [facility]. SKIN: Warm and dry. No rash. HEAD: Normocephalic. Atraumatic. NECK: Supple. Trachea midline. CARDIOVASCULAR: Regular rate and rhythm. S1, S2 noted. No murmur appreciated. RESPIRATORY: No accessory muscle use. Clear to auscultation. Breath sounds equal bilaterally. GASTROINTESTINAL: Abdomen soft, non-tender, nondistended. Normoactive bowel sounds x4. MUSCULOSKELETAL: No obvious deformities. Extremities without clubbing, cyanosis , or edema. NEUROLOGICAL: Awake and alert. No obvious cranial nerve deficits. Motor grossly within normal limits. Moves all extremities spontaneously. Normal speech. PSYCHIATRIC: Appropriate mood, intellectually delayed affect; insight and judgment fair. Medications and IVs Current Medications Medications (Trade) Dose Ordered Sig/Carol Route Start Time Stop Time Status Last Admin (NS Flush) 2 ml UNSCH PRN FLUSH 04/02/16 20:15 (NS Flush) 2 ml BID FLUSH 04/02/16 21:00 04/11/16 10:29 (Dulcolax Supp) 10 mg DAILY PRN [place] 04/02/16 20:15 (Tylenol) 650 mg Q6H PRN PO 04/02/16 20:15 (Catapres) 0.1 mg Q6H PRN PO 04/03/16 09:15 04/08/16 18:10 (Ativan) 0.5 mg Q6H PRN PO 04/04/16 08:00 04/06/16 23:01 (Pill Splitter) 1 ea UNSCH PRN OTHER 04/04/16 14:15 (Norvasc) 5 mg DAILY PO 04/06/16 09:00 04/11/16 10:29 Urinary Catheter: No Vascular Central Line Catheter: No A/P Problem List: (1) Total self-care deficit ICD Code: R41.89 Status: Acute (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 Total Self Care Deficit: DCF and case management are involved. Needs placement. 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 Reported mental capacity of [id number]. Continue sitter. Ativan and restraints if unable to verbally redirect the patient, however he has been behaving well, pleasant, no acute issues. Mikael act: Mikael acted by the police as patient would be at risk for neglect and harm. Consulted Psychiatry, Dr. Altamirano, Mikael act lifted, however with the patient's retarded mental capacity, will need placement for safety. Elevated BP: BP is not optimally controlled upon arrival, started on amlodipine with good response. Suspect occasional labile BP secondary to stress of being in the hospital. Clonidine as needed. Monitor BP. DVT Prophylaxis: SCD/Teds. Ambulation. Discharge Planning Discharge pending placement. Discussed with Dr. Bailey. Alma Rosa Saleem PA-C Apr 12, 2016 08:54
[2016-04-12] MEDS: SODIUM CHLORIDE 0.9% FLUSH 5 ML FLUSH FLUSH SCH ×2 (09:00→20:41)
[2016-04-12] MEDS: amLODIPine BESYLATE 5 MG TAB PO SCH (09:37)
[2016-04-13 04:15] VITALS: BP 131/80; PULSE 71; RESP 16; TEMP 96.7; O2SAT 99
[2016-04-13] MEDS: amLODIPine BESYLATE 5 MG TAB PO SCH (07:55)
[2016-04-13 08:00] VITALS: BP 138/82; PULSE 66; RESP 20; TEMP 95.8; O2SAT 100
[2016-04-13] MEDS: SODIUM CHLORIDE 0.9% FLUSH 5 ML FLUSH FLUSH SCH ×2 (09:00→21:00)
[2016-04-13 12:00] VITALS: BP 147/79; PULSE 101; RESP 20; TEMP 96.2; O2SAT 97
--- NOTE | 2016-04-13 13:46 | HHI.PR ---
Subjective Remarks Follow up for unsafe discharge. The patient is seen sitting upright in bed, finished his entire lunch. He has no medical complaints. Discussed with RN, no concerns. Objective Vitals Vital Signs Date Time Temp Pulse Resp B/P Pulse Ox O2 Delivery O2 Flow Rate FiO2 04/13/16 12:00 96.2 101 20 147/79 97 04/13/16 08:00 95.8 66 20 138/82 100 04/13/16 04:15 96.7 71 16 131/80 99 04/12/16 23:35 97.3 68 18 142/67 100 04/12/16 20:37 98.3 69 18 135/78 99 04/12/16 16:00 95.8 75 20 138/96 98 I/O 04/12/16 04/12/16 04/12/16 04/13/16 04/13/16 04/13/16 07:00 15:00 23:00 07:00 15:00 23:00 Intake Total 320 ml 480 ml 240 ml Balance 320 ml 480 ml 240 ml Intake Oral 320 ml 480 ml 240 ml # Voids 3 1 0 1 # Bowel Movements 0 0 Objective Remarks GENERAL: Well-nourished, well-developed pleasant young male patient in [facility]. SKIN: Warm and dry. No rash. HEAD: Normocephalic. Atraumatic. NECK: Supple. Trachea midline. CARDIOVASCULAR: Regular rate and rhythm. S1, S2 noted. No murmur appreciated. RESPIRATORY: No accessory muscle use. Clear to auscultation. Breath sounds equal bilaterally. GASTROINTESTINAL: Abdomen soft, non-tender, nondistended. Normoactive bowel sounds x4. MUSCULOSKELETAL: No obvious deformities. Extremities without clubbing, cyanosis , or edema. NEUROLOGICAL: Awake and alert. No obvious cranial nerve deficits. Motor grossly within normal limits. Moves all extremities spontaneously. Normal speech. PSYCHIATRIC: Appropriate mood, intellectually delayed affect; insight and judgment fair. Medications and IVs Current Medications Medications (Trade) Dose Ordered Sig/Carol Route Start Time Stop Time Status Last Admin (NS Flush) 2 ml UNSCH PRN FLUSH 04/02/16 20:15 (NS Flush) 2 ml BID FLUSH 04/02/16 21:00 04/11/16 10:29 (Dulcolax Supp) 10 mg DAILY PRN [place] 04/02/16 20:15 (Tylenol) 650 mg Q6H PRN PO 04/02/16 20:15 (Catapres) 0.1 mg Q6H PRN PO 04/03/16 09:15 04/08/16 18:10 (Ativan) 0.5 mg Q6H PRN PO 04/04/16 08:00 04/06/16 23:01 (Pill Splitter) 1 ea UNSCH PRN OTHER 04/04/16 14:15 (Norvasc) 5 mg DAILY PO 04/06/16 09:00 04/13/16 07:55 Urinary Catheter: No Vascular Central Line Catheter: No A/P Problem List: (1) Total self-care deficit ICD Code: R41.89 Status: Acute (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 Total Self Care Deficit: DCF and case management are involved. Needs placement. 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 Reported mental capacity of [id number]. Continue sitter. Ativan and restraints if unable to verbally redirect the patient, however he has been behaving well, pleasant, no acute issues. Mikael act: Mikael acted by the police as patient would be at risk for neglect and harm. Consulted Psychiatry, Dr. Altamirano, Mikael act lifted, however with the patient's retarded mental capacity, will need placement for safety. Elevated BP: BP is not optimally controlled upon arrival, started on amlodipine with good response. Suspect occasional labile BP secondary to stress of being in the hospital. Clonidine as needed. Monitor BP. DVT Prophylaxis: SCD/Teds. Ambulation. Written by Alma Rosa Saleem, acting as scribe for Dr. Bailey on 04/13/16 at 12:30. Discharge Planning Discharge pending placement. Alma Rosa Saleem PA-C Apr 13, 2016 13:46
[2016-04-13 16:00] VITALS: BP 128/84; PULSE 92; RESP 20; TEMP 96.1; O2SAT 100
[2016-04-13 20:03] VITALS: BP 128/94; PULSE 89; RESP 18; TEMP 98.3; O2SAT 98
[2016-04-14 00:07] VITALS: BP 105/51; PULSE 66; RESP 18; TEMP 97.5; O2SAT 96
[2016-04-14 04:29] VITALS: BP 132/92; PULSE 86; RESP 20; TEMP 98.1; O2SAT 98
[2016-04-14 08:00] VITALS: BP 127/80; PULSE 66; RESP 17; TEMP 96.5; O2SAT 99
[2016-04-14] MEDS: amLODIPine BESYLATE 5 MG TAB PO SCH (08:41)
[2016-04-14] MEDS: SODIUM CHLORIDE 0.9% FLUSH 5 ML FLUSH FLUSH SCH ×2 (08:43→21:00)
[2016-04-14 12:07] VITALS: BP_SYST 136; BP_SYST 186; BP_DIAS 75; PULSE 85; RESP 16; TEMP 98.4; O2SAT 99
--- NOTE | 2016-04-14 14:02 | HHI.PR ---
Subjective Remarks Follow up for unsafe discharge. The patient is seen ambulating the unit. He has no complaints. He is requesting more food. [employer]ATCH [employer]LOAD[employer] and RN reports the patient always asks for more food, will double his meals. Vital signs reviewed, stable. Objective Vitals Vital Signs Date Time Temp Pulse Resp B/P Pulse Ox O2 Delivery O2 Flow Rate FiO2 04/14/16 12:07 98.4 85 16 136/75 99 04/14/16 08:00 96.5 66 17 127/80 99 04/14/16 04:29 98.1 86 20 132/92 98 04/14/16 00:07 97.5 66 18 105/51 96 04/13/16 20:03 98.3 89 18 128/94 98 04/13/16 16:00 96.1 92 20 128/84 100 I/O 04/13/16 04/13/16 04/13/16 04/14/16 04/14/16 04/14/16 07:00 15:00 23:00 07:00 15:00 23:00 Intake Total 240 ml 480 ml 240 ml Balance 240 ml 480 ml 240 ml Intake Oral 240 ml 480 ml 240 ml # Voids 1 3 1 1 # Bowel Movements 0 0 Objective Remarks GENERAL: Well-nourished, well-developed pleasant young male patient in [facility]. SKIN: Warm and dry. No rash. HEAD: Normocephalic. Atraumatic. NECK: Supple. Trachea midline. CARDIOVASCULAR: Regular rate and rhythm. S1, S2 noted. No murmur appreciated. RESPIRATORY: No accessory muscle use. Clear to auscultation. Breath sounds equal bilaterally. GASTROINTESTINAL: Abdomen soft, non-tender, nondistended. Normoactive bowel sounds x4. MUSCULOSKELETAL: No obvious deformities. Extremities without clubbing, cyanosis , or edema. NEUROLOGICAL: Awake and alert. No obvious cranial nerve deficits. Motor grossly within normal limits. Moves all extremities spontaneously. Normal speech. PSYCHIATRIC: Appropriate mood, intellectually delayed affect; insight and judgment fair. Medications and IVs Current Medications Medications (Trade) Dose Ordered Sig/Carol Route Start Time Stop Time Status Last Admin (NS Flush) 2 ml UNSCH PRN FLUSH 04/02/16 20:15 (NS Flush) 2 ml BID FLUSH 04/02/16 21:00 04/11/16 10:29 (Dulcolax Supp) 10 mg DAILY PRN [place] 04/02/16 20:15 (Tylenol) 650 mg Q6H PRN PO 04/02/16 20:15 (Catapres) 0.1 mg Q6H PRN PO 04/03/16 09:15 04/08/16 18:10 (Ativan) 0.5 mg Q6H PRN PO 04/04/16 08:00 04/06/16 23:01 (Pill Splitter) 1 ea UNSCH PRN OTHER 04/04/16 14:15 (Norvasc) 5 mg DAILY PO 04/06/16 09:00 04/14/16 08:41 Urinary Catheter: No Vascular Central Line Catheter: No A/P Problem List: (1) Total self-care deficit ICD Code: R41.89 Status: Acute (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 Total Self Care Deficit: DCF and case management are involved. Needs placement. 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 Reported mental capacity of [id number]. Continue sitter. Ativan and restraints if unable to verbally redirect the patient, however he has been behaving well, pleasant, no acute issues. Mikael act: Mikael acted by the police as patient would be at risk for neglect and harm. Consulted Psychiatry, Dr. Altamirano, Mikael act lifted, however with the patient's retarded mental capacity, will need placement for safety. Elevated BP: BP is not optimally controlled upon arrival, started on amlodipine with good response. Suspect occasional labile BP secondary to stress of being in the hospital. Clonidine as needed. Monitor BP. DVT Prophylaxis: SCD/Teds. Ambulation. Discharge Planning Discharge pending placement. Alma Roas Saleem PA-C Apr 14, 2016 14:02
[2016-04-14 16:02] VITALS: BP 142/95; PULSE 86; RESP 15; TEMP 97.6; O2SAT 98
[2016-04-14 20:24] VITALS: BP 155/82; PULSE 78; RESP 18; TEMP 97.3; O2SAT 99
[2016-04-15 00:05] VITALS: BP 119/74; PULSE 82; RESP 17; TEMP 96.9; O2SAT 99
[2016-04-15 04:11] VITALS: BP 116/58; PULSE 77; RESP 18; TEMP 96.1; O2SAT 100
[2016-04-15 07:00] VITALS: BP 144/83; PULSE 91; RESP 18; TEMP 95.4; O2SAT 98
[2016-04-15] MEDS: amLODIPine BESYLATE 5 MG TAB PO SCH (08:30)
[2016-04-15] MEDS: SODIUM CHLORIDE 0.9% FLUSH 5 ML FLUSH FLUSH SCH ×2 (08:30→20:46)
[2016-04-15 11:35] VITALS: BP 147/93; PULSE 58; RESP 18; TEMP 96; O2SAT 99
[2016-04-15 15:42] VITALS: BP 144/91; PULSE 84; RESP 18; TEMP 95.8; O2SAT 98
--- NOTE | 2016-04-15 15:45 | HHI.PR ---
Subjective Remarks no major overnight events denies cp/sob denies fevers/chills Objective Vitals Vital Signs Date Time Temp Pulse Resp B/P Pulse Ox O2 Delivery O2 Flow Rate FiO2 04/15/16 15:42 95.8 84 18 144/91 98 04/15/16 11:35 96.0 58 18 147/93 99 04/15/16 07:00 95.4 91 18 144/83 98 04/15/16 04:11 96.1 77 18 116/58 100 04/15/16 00:05 96.9 82 17 119/74 99 04/14/16 20:24 97.3 78 18 155/82 99 04/14/16 16:02 97.6 86 15 142/95 98 I/O 04/14/16 04/14/16 04/14/16 04/15/16 04/15/16 04/15/16 06:59 14:59 22:59 06:59 14:59 22:59 Intake Total 240 ml 720 ml 240 ml 720 ml Balance 240 ml 720 ml 240 ml 720 ml Intake Oral 240 ml 720 ml 240 ml 720 ml # Voids 1 4 2 2 # Bowel Movements 1 Objective Remarks GENERAL: Well-nourished, well-developed pleasant young male patient in [facility]. SKIN: Warm and dry. No rash. HEAD: Normocephalic. Atraumatic. NECK: Supple. Trachea midline. CARDIOVASCULAR: Regular rate and rhythm. S1, S2 noted. No murmur appreciated. RESPIRATORY: No accessory muscle use. Clear to auscultation. Breath sounds equal bilaterally. GASTROINTESTINAL: Abdomen soft, non-tender, nondistended. Normoactive bowel sounds x4. MUSCULOSKELETAL: No obvious deformities. Extremities without clubbing, cyanosis , or edema. NEUROLOGICAL: Awake and alert. No obvious cranial nerve deficits. Motor grossly within normal limits. Moves all extremities spontaneously. Normal speech. PSYCHIATRIC: Appropriate mood, intellectually delayed affect; insight and judgment fair. Medications and IVs Current Medications Medications (Trade) Dose Ordered Sig/Carol Route Start Time Stop Time Status Last Admin (NS Flush) 2 ml UNSCH PRN FLUSH 04/02/16 20:15 (NS Flush) 2 ml BID FLUSH 04/02/16 21:00 04/11/16 10:29 (Dulcolax Supp) 10 mg DAILY PRN [place] 04/02/16 20:15 (Tylenol) 650 mg Q6H PRN PO 04/02/16 20:15 (Catapres) 0.1 mg Q6H PRN PO 04/03/16 09:15 04/08/16 18:10 (Ativan) 0.5 mg Q6H PRN PO 04/04/16 08:00 04/06/16 23:01 (Pill Splitter) 1 ea UNSCH PRN OTHER 04/04/16 14:15 (Norvasc) 5 mg DAILY PO 04/06/16 09:00 04/15/16 08:30 A/P Problem List: (1) Total self-care deficit ICD Code: R41.89 Status: Acute (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 Total Self Care Deficit: DCF and case management are involved. Needs placement. 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 Reported mental capacity of [id number]. Continue sitter. Ativan if needed. Mikael act: Mikael acted by the police as patient would be at risk for neglect and harm. Consulted Psychiatry, discussed with Dr. Altamirano, Mikael act lifted, however with the patient's retarded mental capacity, he will need placement for safety. Elevated BP: BP is not optimally controlled. Secondary to stress of being in the hospital? Clonidine as needed. Added low-dose amlodipine. Monitor BP. DVT Prophylaxis: SCD/Teds. Ambulation. Shan Morris MD Apr 15, 2016 15:45
[2016-04-15 20:26] VITALS: BP 150/75; PULSE 82; RESP 16; TEMP 97.2; O2SAT 99
[2016-04-16 00:13] VITALS: BP 121/61; PULSE 64; RESP 18; TEMP 97; O2SAT 100
[2016-04-16 04:33] VITALS: BP 111/70; PULSE 65; RESP 16; TEMP 96.7; O2SAT 99
[2016-04-16 07:55] VITALS: BP 134/86; PULSE 88; RESP 18; TEMP 97.1; O2SAT 99
[2016-04-16] MEDS: SODIUM CHLORIDE 0.9% FLUSH 5 ML FLUSH FLUSH SCH ×2 (08:48→19:52)
[2016-04-16] MEDS: amLODIPine BESYLATE 5 MG TAB PO SCH (08:49)
[2016-04-16 11:45] VITALS: BP 145/92; PULSE 100; RESP 18; TEMP 96.6; O2SAT 95
[2016-04-16 15:30] VITALS: BP 148/88; PULSE 89; RESP 18; TEMP 96.4; O2SAT 99
--- NOTE | 2016-04-16 17:25 | HHI.PR ---
Subjective Remarks no complaints denies cp/sob denies fevers/chills no diarrhea Objective Vitals Vital Signs Date Time Temp Pulse Resp B/P Pulse Ox O2 Delivery O2 Flow Rate FiO2 04/16/16 15:30 96.4 89 18 148/88 99 04/16/16 11:45 96.6 100 18 145/92 95 04/16/16 07:55 97.1 88 18 134/86 99 04/16/16 04:33 96.7 65 16 111/70 99 04/16/16 00:13 97.0 64 18 121/61 100 04/15/16 20:26 97.2 82 16 150/75 99 I/O 04/15/16 04/15/16 04/15/16 04/16/16 04/16/16 04/16/16 06:59 14:59 22:59 06:59 14:59 22:59 Intake Total 240 ml 720 ml 750 ml 240 ml Output Total 400 ml Balance 240 ml 720 ml 350 ml 240 ml Intake Oral 240 ml 720 ml 750 ml 240 ml Output Urine Total 400 ml # Voids 2 2 2 3 # Bowel Movements 1 2 0 Objective Remarks GENERAL: Well-nourished, well-developed pleasant young male patient in [facility]. SKIN: Warm and dry. No rash. HEAD: Normocephalic. Atraumatic. NECK: Supple. Trachea midline. CARDIOVASCULAR: Regular rate and rhythm. S1, S2 noted. No murmur appreciated. RESPIRATORY: No accessory muscle use. Clear to auscultation. Breath sounds equal bilaterally. GASTROINTESTINAL: Abdomen soft, non-tender, nondistended. Normoactive bowel sounds x4. MUSCULOSKELETAL: No obvious deformities. Extremities without clubbing, cyanosis , or edema. NEUROLOGICAL: Awake and alert. No obvious cranial nerve deficits. Motor grossly within normal limits. Moves all extremities spontaneously. Normal speech. PSYCHIATRIC: Appropriate mood, intellectually delayed affect; insight and judgment fair. Procedures none Medications and IVs Current Medications Medications (Trade) Dose Ordered Sig/Carol Route Start Time Stop Time Status Last Admin (NS Flush) 2 ml UNSCH PRN FLUSH 04/02/16 20:15 (NS Flush) 2 ml BID FLUSH 04/02/16 21:00 04/11/16 10:29 (Dulcolax Supp) 10 mg DAILY PRN [place] 04/02/16 20:15 (Tylenol) 650 mg Q6H PRN PO 04/02/16 20:15 (Catapres) 0.1 mg Q6H PRN PO 04/03/16 09:15 04/08/16 18:10 (Ativan) 0.5 mg Q6H PRN PO 04/04/16 08:00 04/06/16 23:01 (Pill Splitter) 1 ea UNSCH PRN OTHER 04/04/16 14:15 (Norvasc) 5 mg DAILY PO 04/06/16 09:00 04/16/16 08:49 A/P Problem List: (1) Total self-care deficit ICD Code: R41.89 Status: Acute (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 Total Self Care Deficit: DCF and case management are involved. Needs placement. 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 Reported mental capacity of [id number]. Continue sitter. Ativan if needed. Mikael act: Mikael acted by the police as patient would be at risk for neglect and harm. Consulted Psychiatry, discussed with Dr. Altamirano, Mikael act lifted, however with the patient's retarded mental capacity, he will need placement for safety. HTN: now stable on amlodipine 5 mg po daily. Continue to monitor bp. DVT Prophylaxis: SCD/Teds. Ambulation. Discharge Planning pending placement Shan Morris MD Apr 16, 2016 17:25
[2016-04-16 20:27] VITALS: BP 135/92; PULSE 66; RESP 21; TEMP 97.2; O2SAT 99
[2016-04-17] VITALS (7 sets, daily range): BP systolic 103–140; BP diastolic 57–84; PULSE 65–86; RESP 18–20; TEMP 96.7–98; O2SAT 95–100
[2016-04-17] MEDS: amLODIPine BESYLATE 5 MG TAB PO SCH (08:52)
[2016-04-17] MEDS: SODIUM CHLORIDE 0.9% FLUSH 5 ML FLUSH FLUSH SCH ×2 (08:52→20:36)
--- NOTE | 2016-04-17 13:02 | HHI.PR ---
Subjective Remarks denies cp/sob denies fevers/chills no diarrhea eating well stable vital signs Objective Vitals Vital Signs Date Time Temp Pulse Resp B/P Pulse Ox O2 Delivery O2 Flow Rate FiO2 04/17/16 08:00 97.4 76 18 140/84 100 04/17/16 04:00 97.4 70 20 116/72 100 04/17/16 00:26 97.7 76 20 107/57 98 04/16/16 20:27 97.2 66 21 135/92 99 04/16/16 15:30 96.4 89 18 148/88 99 I/O 04/16/16 04/16/16 04/16/16 04/17/16 04/17/16 04/17/16 06:59 14:59 22:59 06:59 14:59 22:59 Intake Total 240 ml Balance 240 ml Intake Oral 240 ml # Voids 3 4 # Bowel Movements 0 0 Objective Remarks GENERAL: Well-nourished, well-developed pleasant young male patient in [facility]. SKIN: Warm and dry. No rash. HEAD: Normocephalic. Atraumatic. NECK: Supple. Trachea midline. CARDIOVASCULAR: Regular rate and rhythm. S1, S2 noted. No murmur appreciated. RESPIRATORY: No accessory muscle use. Clear to auscultation. Breath sounds equal bilaterally. GASTROINTESTINAL: Abdomen soft, non-tender, nondistended. Normoactive bowel sounds x4. MUSCULOSKELETAL: No obvious deformities. Extremities without clubbing, cyanosis , or edema. NEUROLOGICAL: Awake and alert. No obvious cranial nerve deficits. Motor grossly within normal limits. Moves all extremities spontaneously. Normal speech. PSYCHIATRIC: Appropriate mood, intellectually delayed affect; insight and judgment fair. Procedures none Medications and IVs Current Medications Medications (Trade) Dose Ordered Sig/Carol Route Start Time Stop Time Status Last Admin (NS Flush) 2 ml UNSCH PRN FLUSH 04/02/16 20:15 (NS Flush) 2 ml BID FLUSH 04/02/16 21:00 04/11/16 10:29 (Dulcolax Supp) 10 mg DAILY PRN [place] 04/02/16 20:15 (Tylenol) 650 mg Q6H PRN PO 04/02/16 20:15 (Catapres) 0.1 mg Q6H PRN PO 04/03/16 09:15 04/08/16 18:10 (Ativan) 0.5 mg Q6H PRN PO 04/04/16 08:00 04/17/16 13:20 (Pill Splitter) 1 ea UNSCH PRN OTHER 04/04/16 14:15 (Norvasc) 5 mg DAILY PO 04/06/16 09:00 04/17/16 08:52 A/P Problem List: (1) Total self-care deficit ICD Code: R41.89 Status: Acute (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 Total Self Care Deficit: DCF and case management are involved. Needs placement. 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 Reported mental capacity of [id number]. Continue sitter. Ativan if needed. Mikael act: Mikael acted by the police as patient would be at risk for neglect and harm. Consulted Psychiatry, discussed with Dr. Altamirano, Mikael act lifted, however with the patient's retarded mental capacity, he will need placement for safety. HTN: now stable on amlodipine 5 mg po daily. Continue to monitor bp. DVT Prophylaxis: SCD/Teds. Ambulation. Discharge Planning pending placement Shan Morris MD Apr 17, 2016 13:02
[2016-04-17] MEDS: LORazepam 0.5 MG TAB PO PRN (13:20)
[2016-04-18] MEDS: LORazepam 0.5 MG TAB PO PRN (01:44)
[2016-04-18 05:04] VITALS: BP 114/71; PULSE 88; RESP 18; TEMP 97.4; O2SAT 98
[2016-04-18 08:00] VITALS: BP 128/79; PULSE 83; RESP 18; TEMP 98.1; O2SAT 97
[2016-04-18] MEDS: SODIUM CHLORIDE 0.9% FLUSH 5 ML FLUSH FLUSH SCH ×2 (09:00→21:00)
[2016-04-18] MEDS: amLODIPine BESYLATE 5 MG TAB PO SCH (09:01)
[2016-04-18 12:00] VITALS: BP 133/82; PULSE 75; RESP 18; TEMP 97.4; O2SAT 100
[2016-04-18 16:01] VITALS: BP 137/76; PULSE 65; RESP 18; TEMP 97.8; O2SAT 100
[2016-04-18 20:00] VITALS: BP 151/88; PULSE 71; RESP 18; TEMP 97.4; O2SAT 99
--- NOTE | 2016-04-18 21:10 | HHI.PR ---
Subjective Remarks deferred entry patient seen at noon Patient sitting out in nurses station denies cp/sob denies fevers/chills eating well Objective Vitals Vital Signs Date Time Temp Pulse Resp B/P Pulse Ox O2 Delivery O2 Flow Rate FiO2 04/18/16 20:00 97.4 71 18 151/88 99 04/18/16 16:01 97.8 65 18 137/76 100 04/18/16 12:00 97.4 75 18 133/82 100 04/18/16 08:00 98.1 83 18 128/79 97 04/18/16 05:04 97.4 88 18 114/71 98 04/17/16 23:48 97.6 65 18 103/59 100 I/O 04/17/16 04/17/16 04/17/16 04/18/16 04/18/16 04/18/16 07:00 15:00 23:00 07:00 15:00 23:00 Intake Total 560 ml 960 ml Balance 560 ml 960 ml Intake Oral 560 ml 960 ml # Voids 4 3 2 3 # Bowel Movements 0 0 Objective Remarks GENERAL: Well-nourished, well-developed pleasant young male patient in [facility]. SKIN: Warm and dry. No rash. HEAD: Normocephalic. Atraumatic. NECK: Supple. Trachea midline. CARDIOVASCULAR: Regular rate and rhythm. S1, S2 noted. No murmur appreciated. RESPIRATORY: No accessory muscle use. Clear to auscultation. Breath sounds equal bilaterally. GASTROINTESTINAL: Abdomen soft, non-tender, nondistended. Normoactive bowel sounds x4. MUSCULOSKELETAL: No obvious deformities. Extremities without clubbing, cyanosis , or edema. NEUROLOGICAL: Awake and alert. No obvious cranial nerve deficits. Motor grossly within normal limits. Moves all extremities spontaneously. Normal speech. PSYCHIATRIC: Appropriate mood, intellectually delayed affect; insight and judgment fair. Procedures none Medications and IVs Current Medications Medications (Trade) Dose Ordered Sig/Carol Route Start Time Stop Time Status Last Admin (NS Flush) 2 ml UNSCH PRN FLUSH 04/02/16 20:15 (NS Flush) 2 ml BID FLUSH 04/02/16 21:00 04/11/16 10:29 (Dulcolax Supp) 10 mg DAILY PRN [place] 04/02/16 20:15 (Tylenol) 650 mg Q6H PRN PO 04/02/16 20:15 (Catapres) 0.1 mg Q6H PRN PO 04/03/16 09:15 04/08/16 18:10 (Ativan) 0.5 mg Q6H PRN PO 04/04/16 08:00 04/18/16 01:44 (Pill Splitter) 1 ea UNSCH PRN OTHER 04/04/16 14:15 (Norvasc) 5 mg DAILY PO 04/06/16 09:00 04/18/16 09:01 A/P Problem List: (1) Total self-care deficit ICD Code: R41.89 Status: Acute (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 Total Self Care Deficit: DCF and case management are involved. Needs placement. 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 Reported mental capacity of [id number]. Continue sitter. Ativan if needed. Mikael act: Mikael acted by the police as patient would be at risk for neglect and harm. Consulted Psychiatry, discussed with Dr. Altamirano, Mikael act lifted, however with the patient's retarded mental capacity, he will need placement for safety. HTN: now stable on amlodipine 5 mg po daily. Continue to monitor bp. DVT Prophylaxis: SCD/Teds. Ambulation. Discharge Planning pending placement Shan Morris MD Apr 18, 2016 21:10
[2016-04-19] VITALS: BP 139/71; PULSE 89; RESP 18; TEMP 97.4; O2SAT 100
[2016-04-19 04:00] VITALS: BP 121/67; PULSE 60; RESP 18; TEMP 97.8; O2SAT 98
[2016-04-19 08:00] VITALS: BP 143/77; PULSE 18; RESP 50; TEMP 97.8; O2SAT 98
[2016-04-19] MEDS: amLODIPine BESYLATE 5 MG TAB PO SCH (08:17)
[2016-04-19] MEDS: SODIUM CHLORIDE 0.9% FLUSH 5 ML FLUSH FLUSH SCH ×2 (09:00→21:00)
[2016-04-19 12:31] VITALS: BP 130/70; PULSE 48; RESP 16; TEMP 97.6; O2SAT 96
[2016-04-19 16:00] VITALS: BP 113/68; PULSE 82; RESP 15; TEMP 96.8; O2SAT 99
--- NOTE | 2016-04-19 16:02 | HHI.PR ---
Subjective Remarks no complaints Objective Vitals Vital Signs Date Time Temp Pulse Resp B/P Pulse Ox O2 Delivery O2 Flow Rate FiO2 04/19/16 12:31 97.6 48 16 130/70 96 04/19/16 08:00 97.8 18 50 143/77 98 04/19/16 04:00 97.8 60 18 121/67 98 04/19/16 00:00 97.4 89 18 139/71 100 04/18/16 20:00 97.4 71 18 151/88 99 I/O 04/18/16 04/18/16 04/18/16 04/19/16 04/19/16 04/19/16 07:00 15:00 23:00 07:00 15:00 23:00 Intake Total 960 ml 480 ml Balance 960 ml 480 ml Intake Oral 960 ml 480 ml # Voids 2 3 4 2 # Bowel Movements 0 0 0 Objective Remarks GENERAL: Well-nourished, well-developed pleasant young male patient in [facility]. SKIN: Warm and dry. No rash. HEAD: Normocephalic. Atraumatic. NECK: Supple. Trachea midline. CARDIOVASCULAR: Regular rate and rhythm. S1, S2 noted. No murmur appreciated. RESPIRATORY: No accessory muscle use. Clear to auscultation. Breath sounds equal bilaterally. GASTROINTESTINAL: Abdomen soft, non-tender, nondistended. Normoactive bowel sounds x4. MUSCULOSKELETAL: No obvious deformities. Extremities without clubbing, cyanosis , or edema. NEUROLOGICAL: Awake and alert. No obvious cranial nerve deficits. Motor grossly within normal limits. Moves all extremities spontaneously. Normal speech. PSYCHIATRIC: Appropriate mood, intellectually delayed affect; insight and judgment fair. 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 Total Self Care Deficit: DCF and case management are involved. Needs placement. 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 Reported mental capacity of [id number]. Continue sitter. Ativan if needed. Mikael act: Mikael acted by the police as patient would be at risk for neglect and harm. Consulted Psychiatry, discussed with Dr. Altamirano, Mikael act lifted, however with the patient's retarded mental capacity, he will need placement for safety. HTN: now stable on amlodipine 5 mg po daily. Continue to monitor bp. DVT Prophylaxis: SCD/Teds. Ambulation. Discharge Planning pending placement Shan Morris MD Apr 19, 2016 16:02
[2016-04-19] MEDS: LORazepam 0.5 MG TAB PO PRN (17:37)
[2016-04-19 20:00] VITALS: BP 135/88; PULSE 83; RESP 20; TEMP 98.2; O2SAT 99
[2016-04-20 04:00] VITALS: BP 112/67; PULSE 93; RESP 20; TEMP 97.5; O2SAT 98
[2016-04-20] MEDS: SODIUM CHLORIDE 0.9% FLUSH 5 ML FLUSH FLUSH SCH ×2 (07:43→20:13)
[2016-04-20 08:15] VITALS: BP 120/62; PULSE 72; RESP 15; TEMP 97; O2SAT 98
[2016-04-20] MEDS: amLODIPine BESYLATE 5 MG TAB PO SCH (09:00)
[2016-04-20 12:13] VITALS: BP 123/78; PULSE 68; RESP 16; TEMP 96.9; O2SAT 100
--- NOTE | 2016-04-20 14:30 | HHI.PR ---
Subjective Remarks no major overnight events no complaints Objective Vitals Vital Signs Date Time Temp Pulse Resp B/P Pulse Ox O2 Delivery O2 Flow Rate FiO2 04/20/16 12:13 96.9 68 16 123/78 100 04/20/16 08:15 97.0 72 15 120/62 98 04/20/16 04:00 97.5 93 20 112/67 98 04/19/16 20:00 98.2 83 20 135/88 99 04/19/16 16:00 96.8 82 15 113/68 99 I/O 04/19/16 04/19/16 04/19/16 04/20/16 04/20/16 04/20/16 07:00 15:00 23:00 07:00 15:00 23:00 Intake Total 480 ml 120 ml 600 ml Balance 480 ml 120 ml 600 ml Intake Oral 480 ml 120 ml 600 ml # Voids 4 2 2 3 # Bowel Movements 0 0 0 1 Objective Remarks GENERAL: Well-nourished, well-developed pleasant young male patient in [facility]. SKIN: Warm and dry. No rash. HEAD: Normocephalic. Atraumatic. NECK: Supple. Trachea midline. CARDIOVASCULAR: Regular rate and rhythm. S1, S2 noted. No murmur appreciated. RESPIRATORY: No accessory muscle use. Clear to auscultation. Breath sounds equal bilaterally. GASTROINTESTINAL: Abdomen soft, non-tender, nondistended. Normoactive bowel sounds x4. MUSCULOSKELETAL: No obvious deformities. Extremities without clubbing, cyanosis , or edema. NEUROLOGICAL: Awake and alert. No obvious cranial nerve deficits. Motor grossly within normal limits. Moves all extremities spontaneously. Normal speech. PSYCHIATRIC: Appropriate mood, intellectually delayed affect; insight and judgment fair. 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 Total Self Care Deficit: DCF and case management are involved. Needs placement. 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 Reported mental capacity of [id number]. Continue sitter. Ativan if needed. Mikael act: Mikael acted by the police as patient would be at risk for neglect and harm. Consulted Psychiatry, discussed with Dr. Altamirano, Mikael act lifted, however with the patient's retarded mental capacity, he will need placement for safety. HTN: now stable on amlodipine 5 mg po daily. Continue to monitor bp. DVT Prophylaxis: SCD/Teds. Ambulation. Discharge Planning pending placement Shan Morris MD Apr 20, 2016 14:30
[2016-04-20 16:40] VITALS: BP 159/103; PULSE 77; RESP 16; TEMP 96.5; O2SAT 100
[2016-04-20 20:00] VITALS: BP 153/99; PULSE 82; RESP 16; TEMP 97.6; O2SAT 98
[2016-04-21 08:00] VITALS: BP 152/95; PULSE 88; RESP 16; TEMP 96.6; O2SAT 97
[2016-04-21] MEDS: SODIUM CHLORIDE 0.9% FLUSH 5 ML FLUSH FLUSH SCH (08:20)
[2016-04-21] MEDS: amLODIPine BESYLATE 5 MG TAB PO SCH (08:26)
--- NOTE | 2016-04-21 10:19 | HHI.PR ---
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 Case management and DCF have been involved in arranging placement. They have been unsuccessful with arrangement placement. Hence those reasons is recommended that the patient be transferred down to [place] for long-term care. Upon seeing the patient today he denies any new complaints. Rather pleasant individual who is orientated to person [facility], [facility] , president. Objective Vitals Vital Signs Date Time Temp Pulse Resp B/P Pulse Ox O2 Delivery O2 Flow Rate FiO2 04/21/16 08:00 96.6 88 16 152/95 97 04/20/16 20:00 97.6 82 16 153/99 98 04/20/16 16:40 96.5 77 16 159/103 100 04/20/16 12:13 96.9 68 16 123/78 100 I/O 04/20/16 04/20/16 04/20/16 04/21/16 04/21/16 04/21/16 07:00 15:00 23:00 07:00 15:00 23:00 Intake Total 120 ml 600 ml 120 ml 360 ml Balance 120 ml 600 ml 120 ml 360 ml Intake Oral 120 ml 600 ml 120 ml 360 ml # Voids 2 3 3 3 # Bowel Movements 0 1 0 0 Imaging GENERAL: Well-developed, well-nourished, in no acute distress. alert and orientated to person, [facility], [facility], president HEENT: Head is normocephalic without any lesions or masses noted. Facial features are symmetric. Eyes: Extraocular muscles are intact. Conjunctivae were clear. NECK: Supple without any masses. Trachea midline no deviation. CARDIAC: Regular rhythm, regular rate. S1/S2 are heard. No murmurs gallops or rubs. LUNGS: Clear to auscultation bilaterally. No wheeze, rhonchi or rales. No use of accessory muscles on inspiration or expiration. ABDOMEN: Soft, nontender. Nondistended. Bowel sounds heard in all 4 quadrants. No organomegaly or masses. Negative rebound, negative guarding EXTREMITIES: No edema, pulses are equal bilaterally. No cyanosis or clubbing NEUROLOGY: Mood and affect appear appropriate. Cranial nerves II through XII grossly intact. 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 Total Self Care Deficit: DCF and case management are involved. Needs placement. Patient really Youssef acted and Youssef act was lifted by psychiatrist Ant Walker Malformation and Intellectual Disability: Chronic. Reported mental capacity of [id number]. Hypertension Amlodipine 5 mg daily Continue monitor blood pressure DVT Prophylaxis: Low risk, patient ambulating Discharge Planning Case management, DCF are actively pursuing discharge planning. 04/20/16 11:50am: Pt transfering to [facility] room 8575B. CM left message for pt's father notifing him of transfer and room number. IVAN received telephone call from Debora director of casework for DCF [phone] who again stated that she will not be able to assist with placement but would like a telephone call once pt is placed. Corrine MILLER 9:30am: IVAN received a telephone call from magdy curran Batcher Operator for [facility] [phone] ext [phone]. Xin will also try to reach the pt's father and she will try to find placement for pt out of the area. Corrine MILLER CM04/15/16 9:45am: IVAN s/w Marialuisa from [place] who was about to go into a meeting and discuss pt. Marialuisa is going to see if [facility] will be able assist with placement. Marialuisa also stated that she has attempted reach pt's father with no response. Yaniv Snowden CM Apr 21, 2016 10:19
[2016-04-21 19:30] VITALS: BP 151/101
[2016-04-21 20:00] VITALS: BP 142/90; PULSE 82; RESP 16; TEMP 97.5; O2SAT 98
[2016-04-22 07:43] VITALS: BP 135/97; PULSE 87; RESP 16; TEMP 97.7; O2SAT 95
[2016-04-22 08:35] VITALS: BP 135/97; PULSE 87; RESP 16; TEMP 97.7; O2SAT 95
--- NOTE | 2016-04-22 09:05 | HHI.PR ---
Subjective Remarks Patient sees examined today. Patient denies any new complaints. No change in clinical status. Nursing staff indicates patient blood pressure running mildly high throughout the night Objective Vitals Vital Signs Date Time Temp Pulse Resp B/P Pulse Ox O2 Delivery O2 Flow Rate FiO2 04/22/16 08:35 97.7 87 16 135/97 95 04/22/16 07:43 97.7 87 16 135/97 95 04/21/16 20:00 97.5 82 16 142/90 98 04/21/16 19:30 151/101 I/O 04/21/16 04/21/16 04/21/16 04/22/16 04/22/16 04/22/16 07:00 15:00 23:00 07:00 15:00 23:00 Intake Total 360 ml 360 ml 240 ml 180 ml Balance 360 ml 360 ml 240 ml 180 ml Intake Oral 360 ml 360 ml 240 ml 180 ml # Voids 3 2 1 1 # Bowel Movements 0 0 0 0 Objective Remarks GENERAL: Well-developed, well-nourished, in no acute distress. alert and orientated to person, city, state, president HEENT: Head is normocephalic without any lesions or masses noted. Facial features are symmetric. Eyes: Extraocular muscles are intact. Conjunctivae were clear. NECK: Supple without any masses. Trachea midline no deviation. CARDIAC: Regular rhythm, regular rate. S1/S2 are heard. No murmurs gallops or rubs. LUNGS: Clear to auscultation bilaterally. No wheeze, rhonchi or rales. No use of accessory muscles on inspiration or expiration. ABDOMEN: Soft, nontender. Nondistended. Bowel sounds heard in all 4 quadrants. No organomegaly or masses. Negative rebound, negative guarding EXTREMITIES: No edema, pulses are equal bilaterally. No cyanosis or clubbing NEUROLOGY: Mood and affect appear appropriate. Cranial nerves II through XII grossly intact. 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 Total Self Care Deficit: DCF and case management are involved. Needs placement. Patient really Youssef acted and Youssef act was lifted by psychiatrist Ant Guillen Malformation and Intellectual Disability: Chronic. Reported mental capacity of [id number]. Hypertension Increased to Amlodipine 10 mg daily Continue monitor blood pressure DVT Prophylaxis: Low risk, patient ambulating Discharge Planning Case management, [facility] are actively pursuing discharge planning. 04/20/16 11:50am: Pt transfering to [facility] room 8520B. IVAN left message for pt's father notifing him of transfer and room number. IVAN received telephone call from Debora casey saw operator for DCF [phone] who again stated that she will not be able to assist with placement but would like a telephone call once pt is placed. Corrine MILLER CM 9:30am: IVAN received a telephone call from a Xin curran Bobbin Winder for [facility] [phone] ext [phone]. Xin will also try to reach the pt's father and she will try to find placement for pt out of the area. Corrine MILLER CM04/15/16 9:45am: IVAN s/w Marialuisa from [place] who was about to go into a meeting and discuss pt. Marialuisa is going to see if [facility] will be able assist with placement. Marialuisa also stated that she has attempted reach pt's father with no response. Yaniv Snowden CM Apr 22, 2016 09:05
[2016-04-22 20:00] VITALS: BP 155/103; PULSE 88; RESP 16; TEMP 99; O2SAT 100
[2016-04-23 08:00] VITALS: BP 156/97; PULSE 76; RESP 20; TEMP 97.6; O2SAT 100
--- NOTE | 2016-04-23 09:27 | HHI.PR ---
Subjective Remarks Patient seen and examined today. Patient denies any new complaints. No change in clinical status. Objective Vitals Vital Signs Date Time Temp Pulse Resp B/P Pulse Ox O2 Delivery O2 Flow Rate FiO2 04/23/16 08:00 97.6 76 20 156/97 100 04/22/16 20:00 99.0 88 16 155/103 100 I/O 04/22/16 04/22/16 04/22/16 04/23/16 04/23/16 04/23/16 07:00 15:00 23:00 07:00 15:00 23:00 Intake Total 180 ml 725 ml 400 ml 420 ml Balance 180 ml 725 ml 400 ml 420 ml Intake Oral 180 ml 725 ml 400 ml 420 ml # Voids 1 4 2 2 # Bowel Movements 0 0 0 Objective Remarks GENERAL: Well-developed, well-nourished, in no acute distress. alert and orientated to person, city, state, president HEENT: Head is normocephalic without any lesions or masses noted. Facial features are symmetric. Eyes: Extraocular muscles are intact. Conjunctivae were clear. NECK: Supple without any masses. Trachea midline no deviation. CARDIAC: Regular rhythm, regular rate. S1/S2 are heard. No murmurs gallops or rubs. LUNGS: Clear to auscultation bilaterally. No wheeze, rhonchi or rales. No use of accessory muscles on inspiration or expiration. ABDOMEN: Soft, nontender. Nondistended. Bowel sounds heard in all 4 quadrants. No organomegaly or masses. Negative rebound, negative guarding EXTREMITIES: No edema, pulses are equal bilaterally. No cyanosis or clubbing NEUROLOGY: Mood and affect appear appropriate. Cranial nerves II through XII grossly intact. 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 Total Self Care Deficit: DCF and case management are involved. Needs placement. Patient really Youssef acted and Youssef act was lifted by psychiatrist Ant Walker Malformation and Intellectual Disability: Chronic. Reported mental capacity of [id number]. Hypertension Increased to Amlodipine 10 mg daily Continue monitor blood pressure DVT Prophylaxis: Low risk, patient ambulating Discharge Planning Case management, [facility] are actively pursuing discharge planning. 04/20/16 11:50am: Pt transfering to [facility] room 8520B. IVAN left message for pt's father notifing him of transfer and room number. IVAN received telephone call from Debora caser shoe parts for DCF [phone] who again stated that she will not be able to assist with placement but would like a telephone call once pt is placed. Corrine MILLER CM 9:30am: IVAN received a telephone call from magdy curran Snuff Container Inspector for [facility] [phone] ext [phone]. Xin will also try to reach the pt's father and she will try to find placement for pt out of the area. Corrine MILLER 04/15/16 9:45am: IVAN s/w Marialuisa from [place] who was about to go into a meeting and discuss pt. Marialuisa is going to see if [facility] will be able assist with placement. Marialuisa also stated that she has attempted reach pt's father with no response. Yaniv Snowden CM Apr 23, 2016 09:27
[2016-04-23 20:10] VITALS: BP 148/86; PULSE 89; RESP 18; TEMP 98.4; O2SAT 100
[2016-04-24 08:00] VITALS: BP 148/91; PULSE 95; RESP 16; TEMP 98; O2SAT 100
--- NOTE | 2016-04-24 08:00 | HHI.PR ---
Subjective Remarks Patient seen and examined today. Patient denies any new complaints. No change in clinical status. Objective Vitals Vital Signs Date Time Temp Pulse Resp B/P Pulse Ox O2 Delivery O2 Flow Rate FiO2 04/23/16 20:10 98.4 89 18 148/86 100 04/23/16 08:00 97.6 76 20 156/97 100 I/O 04/23/16 04/23/16 04/23/16 04/24/16 04/24/16 04/24/16 07:00 15:00 23:00 07:00 15:00 23:00 Intake Total 420 ml 1000 ml Balance 420 ml 1000 ml Intake Oral 420 ml 1000 ml # Voids 2 5 1 1 # Bowel Movements 0 1 Objective Remarks GENERAL: Well-developed, well-nourished, in no acute distress. alert and orientated to person, city, state, president HEENT: Head is normocephalic without any lesions or masses noted. Facial features are symmetric. Eyes: Extraocular muscles are intact. Conjunctivae were clear. NECK: Supple without any masses. Trachea midline no deviation. CARDIAC: Regular rhythm, regular rate. S1/S2 are heard. No murmurs gallops or rubs. LUNGS: Clear to auscultation bilaterally. No wheeze, rhonchi or rales. No use of accessory muscles on inspiration or expiration. ABDOMEN: Soft, nontender. Nondistended. Bowel sounds heard in all 4 quadrants. No organomegaly or masses. Negative rebound, negative guarding EXTREMITIES: No edema, pulses are equal bilaterally. No cyanosis or clubbing NEUROLOGY: Mood and affect appear appropriate. Cranial nerves II through XII grossly intact. 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 Total Self Care Deficit: DCF and case management are involved. Needs placement. Patient really Youssef acted and Youssef act was lifted by psychiatrist Ant Guillen Malformation and Intellectual Disability: Chronic. Reported mental capacity of [id number]. Hypertension Increased to Amlodipine 10 mg daily Continue monitor blood pressure DVT Prophylaxis: Low risk, patient ambulating Discharge Planning Case management, DCF are actively pursuing discharge planning. 04/20/16 11:50am: Pt transfering to [facility] [place] room 8520B. IVAN left message for pt's father notifing him of transfer and room number. IVAN received telephone call from Debora case maker for DCF [phone] who again stated that she will not be able to assist with placement but would like a telephone call once pt is placed. Corrine MILLER CM 9:30am: IVAN received a telephone call from magdy curran Phlebotomist Supervisor/Instructor for [facility] [phone]. Xin will also try to reach the pt's father and she will try to find placement for pt out of the area. Corrine MILLER 04/15/16 9:45am: IVAN s/w Marialuisa from [place] who was about to go into a meeting and discuss pt. Marialuisa is going to see if [facility] will be able assist with placement. Marialuisa also stated that she has attempted reach pt's father with no response. Yaniv Snowden CM Apr 24, 2016 08:00
[2016-04-24 20:15] VITALS: BP 162/101; PULSE 115; RESP 22; TEMP 98.5; O2SAT 96
[2016-04-25 08:00] VITALS: BP 150/106; PULSE 84; RESP 16; TEMP 97.5; O2SAT 98
--- NOTE | 2016-04-25 10:06 | HHI.PR ---
Subjective Remarks Patient examined today. Patient denies any new complaints. No change in clinical status. Objective Vitals Vital Signs Date Time Temp Pulse Resp B/P Pulse Ox O2 Delivery O2 Flow Rate FiO2 04/25/16 08:00 97.5 84 16 150/106 98 04/24/16 20:15 98.5 115 22 162/101 96 I/O 04/24/16 04/24/16 04/24/16 04/25/16 04/25/16 04/25/16 07:00 15:00 23:00 07:00 15:00 23:00 Intake Total 720 ml 240 ml 480 ml Output Total 1060 ml Balance -340 ml 240 ml 480 ml Intake Oral 720 ml 240 ml 480 ml Output Urine Total 960 ml Stool Total 100 ml # Voids 1 102 2 # Bowel Movements 0 Objective Remarks GENERAL: Well-developed, well-nourished, in no acute distress. alert and orientated to person, city, state, president HEENT: Head is normocephalic without any lesions or masses noted. Facial features are symmetric. Eyes: Extraocular muscles are intact. Conjunctivae were clear. NECK: Supple without any masses. Trachea midline no deviation. CARDIAC: Regular rhythm, regular rate. S1/S2 are heard. No murmurs gallops or rubs. LUNGS: Clear to auscultation bilaterally. No wheeze, rhonchi or rales. No use of accessory muscles on inspiration or expiration. ABDOMEN: Soft, nontender. Nondistended. Bowel sounds heard in all 4 quadrants. No organomegaly or masses. Negative rebound, negative guarding EXTREMITIES: No edema, pulses are equal bilaterally. No cyanosis or clubbing NEUROLOGY: Mood and affect appear appropriate. Cranial nerves II through XII grossly intact. Moving all extremities, speech is clear Procedures none Urinary Catheter: No Vascular Central Line Catheter: No A/P Problem List: (1) Total self-care deficit ICD Code: R41.89 Status: Acute (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 Total Self Care Deficit: DCF and case management are involved. Needs placement. Patient really Youssef acted and Youssef act was lifted by psychiatrist Ant Guillen Malformation and Intellectual Disability: Chronic. Reported mental capacity of [id number]. Hypertension Increased to Amlodipine 10 mg daily Continue monitor blood pressure DVT Prophylaxis: Low risk, patient ambulating Discharge Planning Case management, DCF are actively pursuing discharge planning. 04/20/16 11:50am: Pt transfering to [facility] room 8520B. IVAN left message for pt's father notifing him of transfer and room number. IVAN received telephone call from Debora supervisor case loading for DCF [phone] who again stated that she will not be able to assist with placement but would like a telephone call once pt is placed. Corrine MILLER CM 9:30am: IVAN received a telephone call from magdy curran Manager Room for [facility] [phone]. Xin will also try to reach the pt's father and she will try to find placement for pt out of the area. Corrine MILLER 04/15/16 9:45am: IVAN s/w Marialuisa from [place] who was about to go into a meeting and discuss pt. Marialuisa is going to see if [facility] will be able assist with placement. Marialuisa also stated that she has attempted reach pt's father with no response. Yaniv Snowden CM Apr 25, 2016 10:06
[2016-04-25 20:00] VITALS: BP 157/92; PULSE 97; RESP 18; TEMP 97.6; O2SAT 97
[2016-04-26 08:00] VITALS: BP 142/92; PULSE 97; RESP 16; TEMP 98; O2SAT 100
--- NOTE | 2016-04-26 11:47 | HHI.PR ---
Subjective Remarks Patient seen and examined today. Patient denies any new complaints. No change clinical status. Objective Vitals Vital Signs Date Time Temp Pulse Resp B/P Pulse Ox O2 Delivery O2 Flow Rate FiO2 04/26/16 08:00 98.0 97 16 142/92 100 04/25/16 20:00 97.6 97 18 157/92 97 I/O 04/25/16 04/25/16 04/25/16 04/26/16 04/26/16 04/26/16 07:00 15:00 23:00 07:00 15:00 23:00 Intake Total 480 ml 600 ml Balance 480 ml 600 ml Intake Oral 480 ml 600 ml # Voids 2 1 3 # Bowel Movements 0 0 Objective Remarks GENERAL: Well-developed, well-nourished, in no acute distress. alert and orientated to person, city, state, president HEENT: Head is normocephalic without any lesions or masses noted. Facial features are symmetric. Eyes: Extraocular muscles are intact. Conjunctivae were clear. NECK: Supple without any masses. Trachea midline no deviation. CARDIAC: Regular rhythm, regular rate. S1/S2 are heard. No murmurs gallops or rubs. LUNGS: Clear to auscultation bilaterally. No wheeze, rhonchi or rales. No use of accessory muscles on inspiration or expiration. ABDOMEN: Soft, nontender. Nondistended. Bowel sounds heard in all 4 quadrants. No organomegaly or masses. Negative rebound, negative guarding EXTREMITIES: No edema, pulses are equal bilaterally. No cyanosis or clubbing NEUROLOGY: Mood and affect appear appropriate. Cranial nerves II through XII grossly intact. 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 Total Self Care Deficit: DCF and case management are involved. Needs placement. Patient really Youssef acted and Youssef act was lifted by psychiatrist Ant Guillen Malformation and Intellectual Disability: Chronic. Reported mental capacity of [id number]. Hypertension Increased to Amlodipine 10 mg daily Continue monitor blood pressure DVT Prophylaxis: Low risk, patient ambulating Discharge Planning Case management, [facility]CF are actively pursuing discharge planning. 04/20/16 11:50am: Pt transfering to [facility] [place] room 8520B. IVAN left message for pt's father notifing him of transfer and room number. IVAN received telephone call from Debora disease case manager rn for DCF [phone] who again stated that she will not be able to assist with placement but would like a telephone call once pt is placed. Corrine MILLER CM 9:30am: IVAN received a telephone call from magdy curran Clinical Staff Rn for [facility] [phone] ext [phone]. Xin will also try to reach the pt's father and she will try to find placement for pt out of the area. Corrine MILLER 04/15/16 9:45am: IVAN s/w Marialuisa from [place] who was about to go into a meeting and discuss pt. Marialuisa is going to see if [facility] will be able assist with placement. Marialuisa also stated that she has attempted reach pt's father with no response. Yaniv Snowden CM Apr 26, 2016 11:47
[2016-04-26 20:00] VITALS: BP 166/97; PULSE 116; RESP 18; TEMP 98.2; O2SAT 95
[2016-04-27 08:40] VITALS: BP 149/93; PULSE 108; RESP 18; TEMP 98.7; O2SAT 98
--- NOTE | 2016-04-27 09:04 | HHI.PR ---
Subjective Remarks No acute complaints. Denies any headache, shortness of breath, or vomiting. Objective Vitals Vital Signs Date Time Temp Pulse Resp B/P Pulse Ox O2 Delivery O2 Flow Rate FiO2 04/27/16 08:40 98.7 108 18 149/93 98 04/26/16 20:00 98.2 116 18 166/97 95 I/O 04/26/16 04/26/16 04/26/16 04/27/16 04/27/16 04/27/16 07:00 15:00 23:00 07:00 15:00 23:00 Intake Total 480 ml 240 ml 180 ml Balance 480 ml 240 ml 180 ml Intake Oral 480 ml 240 ml 180 ml # Voids 3 3 3 2 1 # Bowel Movements 0 0 1 0 Objective Remarks GENERAL: Pleasant well-nourished, well-developed patient in no apparent distress. CARDIOVASCULAR: Regular rate and rhythm. RESPIRATORY: No accessory muscle use. Clear to auscultation. Breath sounds equal bilaterally. GASTROINTESTINAL: Normoactive bowel sounds. Abdomen soft, non-tender, nondistended. NEUROLOGICAL: Awake and alert. Motor grossly within normal limits. Normal speech. Patient witnessed to be ambulating in the conti. Procedures none Urinary Catheter: No Vascular Central Line Catheter: No A/P Problem List: (1) Total self-care deficit ICD Code: R41.89 Status: Acute (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 Total Self Care Deficit: DCF and case management are involved. Youssef act was lifted by psychiatrist Dandy Walker Malformation and Intellectual Disability: Chronic. Reported mental capacity of [id number]. Hypertension Increased to Amlodipine 10 mg daily on 04/22/15. Continue to monitor blood pressure. BP 149/93 this morning. If BP fails to improve, will need to consider addition of thiazide or ACEI. DVT Prophylaxis: Low risk, patient ambulating Discharge Planning CM working on placement. Jazmín Meadows Apr 27, 2016 09:04
[2016-04-27 20:00] VITALS: BP 151/93; PULSE 109; RESP 16; TEMP 99.1; O2SAT 99
[2016-04-27] MEDS: LORazepam 0.5 MG TAB PO PRN (21:07)
[2016-04-28 08:00] VITALS: BP 124/91; PULSE 106; RESP 19; TEMP 98.2; O2SAT 99
--- NOTE | 2016-04-28 13:44 | HHI.PR ---
Subjective Remarks Patient seen and evaluated today in follow-up for discharge planning. A bleeding throughout the unit without any discomfort or distress. Plan discussed with Marilyn RN Objective Vitals Vital Signs Date Time Temp Pulse Resp B/P Pulse Ox O2 Delivery O2 Flow Rate FiO2 04/28/16 08:00 98.2 106 19 124/91 99 04/27/16 20:00 99.1 109 16 151/93 99 I/O 04/27/16 04/27/16 04/27/16 04/28/16 04/28/16 04/28/16 07:00 15:00 23:00 07:00 15:00 23:00 Intake Total 180 ml 400 ml 240 ml Balance 180 ml 400 ml 240 ml Intake Oral 180 ml 400 ml 240 ml # Voids 2 2 2 2 # Bowel Movements 0 1 0 0 Objective Remarks GENERAL: This is a well-nourished, well-developed patient, in no apparent distress. CARDIOVASCULAR: Regular rate and rhythm without murmurs, gallops, or rubs. RESPIRATORY: Clear to auscultation. Breath sounds equal bilaterally. No wheezes , rales, or rhonchi. GASTROINTESTINAL: Abdomen soft, non-tender, nondistended. Normal active bowel sounds MUSCULOSKELETAL: Extremities without clubbing, cyanosis, or edema. NEURO: Alert & Oriented , pleasant Procedures none A/P Problem List: (1) Total self-care deficit ICD Code: R41.89 Status: Acute (2) Dandy Walker malformation ICD Code: Q03.1 Status: Chronic (3) Mental retardation ICD Code: F79 Status: Chronic Assessment and Plan Patient still requiring supervision Continue d/c plans Mable Henry MD Apr 28, 2016 13:44
[2016-04-28 20:00] VITALS: BP 146/88; PULSE 112; RESP 20; TEMP 97; O2SAT 98
[2016-04-28] MEDS: LORazepam 0.5 MG TAB PO PRN (20:31)
[2016-04-29 08:00] VITALS: BP 132/86; PULSE 99; RESP 16; TEMP 98.6; O2SAT 99
--- NOTE | 2016-04-29 08:57 | HHI.PR ---
Subjective Remarks No acute complaints. No change in clinical status. Objective Vitals Vital Signs Date Time Temp Pulse Resp B/P Pulse Ox O2 Delivery O2 Flow Rate FiO2 04/28/16 20:00 97.0 112 20 146/88 98 I/O 04/28/16 04/28/16 04/28/16 04/29/16 04/29/16 04/29/16 07:00 15:00 23:00 07:00 15:00 23:00 Intake Total 240 ml 1000 ml Balance 240 ml 1000 ml Intake Oral 240 ml 1000 ml # Voids 2 1 1 # Bowel Movements 0 1 Objective Remarks GENERAL: Pleasant well-nourished, well-developed patient in no apparent distress. CARDIOVASCULAR: Tachycardic rate and regular rhythm. RESPIRATORY: No accessory muscle use. Clear to auscultation. Breath sounds equal bilaterally. GASTROINTESTINAL: Abdomen soft, non-tender, nondistended. NEUROLOGICAL: Awake and alert. Motor grossly within normal limits. Normal speech. Patient witnessed to be ambulating in the conti without issue. 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 Total Self Care Deficit: DCF and case management are involved. Youssef act was lifted by psychiatrist Dandy Walker Malformation and Intellectual Disability: Chronic. Reported mental capacity of [id number]. Hypertension Increased to Amlodipine 10 mg daily on 04/22/15. Continue to monitor blood pressure. BP labile. Improved at 132/86 this morning. If BP fails to improve, will need to consider addition of ACEi. DVT Prophylaxis: Low risk, patient ambulating Discharge Planning CM working on placement. Jazmín Meadows Apr 29, 2016 08:57
[2016-04-29] MEDS: LORazepam 0.5 MG TAB PO PRN (15:53)
[2016-04-29 20:00] VITALS: BP 142/96; PULSE 86; RESP 18; TEMP 96; O2SAT 100
[2016-04-30 08:00] VITALS: BP 141/85; PULSE 85; RESP 16; TEMP 98.9; O2SAT 99
--- NOTE | 2016-04-30 12:11 | HHI.PR ---
Subjective Remarks No acute complaints. No change in clinical status. Objective Vitals Vital Signs Date Time Temp Pulse Resp B/P Pulse Ox O2 Delivery O2 Flow Rate FiO2 04/30/16 08:00 98.9 85 16 141/85 99 04/29/16 20:00 96.0 86 18 142/96 100 I/O 04/29/16 04/29/16 04/29/16 04/30/16 04/30/16 04/30/16 07:00 15:00 23:00 07:00 15:00 23:00 Intake Total 900 ml 720 ml Balance 900 ml 720 ml Intake Oral 900 ml 720 ml # Voids 3 3 1 # Bowel Movements 0 0 Objective Remarks GENERAL: Pleasant well-nourished, well-developed patient in no apparent distress. CARDIOVASCULAR: Regular rate and rhythm. RESPIRATORY: No accessory muscle use. Clear to auscultation. Breath sounds equal bilaterally. GASTROINTESTINAL: Abdomen soft, non-tender, nondistended. NEUROLOGICAL: Awake and alert. Motor grossly within normal limits. Normal speech. 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 Total Self Care Deficit: DCF and case management are involved. Youssef act was lifted by psychiatrist Dandy Walker Malformation and Intellectual Disability: Chronic. Reported mental capacity of [id number]. Hypertension Increased to Amlodipine 10 mg daily on 04/22/15. Continue to monitor blood pressure. BP is still elevated the majority of the time with systolic in the 140's. Will add Lisinopril 5 mg daily and increase if necessary. DVT Prophylaxis: Low risk, patient ambulating Discharge Planning CM working on placement. Jazmín Meadows Apr 30, 2016 12:11
[2016-04-30] MEDS: LISINOPRIL 5 MG TAB PO SCH (13:41)
[2016-04-30 20:00] VITALS: BP 148/81; PULSE 102; RESP 16; TEMP 98; O2SAT 100
[2016-05-01] MEDS: LORazepam 0.5 MG TAB PO PRN ×2 (02:51→19:26)
[2016-05-01 08:00] VITALS: BP 132/95; PULSE 86; RESP 18; TEMP 97.7; O2SAT 97
[2016-05-01] MEDS: LISINOPRIL 5 MG TAB PO SCH (09:29)
--- NOTE | 2016-05-01 09:51 | HHI.PR ---
Subjective Remarks Sitter present in room. She states patient did not go to sleep until 3 AM. The patient states he likes to stay up and watches TV. I informed the patient that he needs to turn off the TV and try to sleep at night. Objective Vitals Vital Signs Date Time Temp Pulse Resp B/P Pulse Ox O2 Delivery O2 Flow Rate FiO2 05/01/16 08:00 97.7 86 18 132/95 97 04/30/16 20:00 98.0 102 16 148/81 100 I/O 04/30/16 04/30/16 04/30/16 05/01/16 05/01/16 05/01/16 07:00 15:00 23:00 07:00 15:00 23:00 Intake Total 720 ml 960 ml 480 ml 480 ml Balance 720 ml 960 ml 480 ml 480 ml Intake Oral 720 ml 960 ml 480 ml 480 ml IV Total 0 ml # Voids 3 5 2 3 # Bowel Movements 0 1 0 0 Objective Remarks GENERAL: Pleasant well-nourished, well-developed patient in no apparent distress. CARDIOVASCULAR: Regular rate and rhythm. RESPIRATORY: No accessory muscle use. Clear to auscultation. Breath sounds equal bilaterally. GASTROINTESTINAL: Abdomen soft, non-tender, nondistended. NEUROLOGICAL: Awake and alert. Motor grossly within normal limits. Normal speech. 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 Total Self Care Deficit: DCF and case management are involved. Youssef act was lifted by psychiatrist Dandy Walker Malformation and Intellectual Disability: Chronic. Reported mental capacity of [id number]. Hypertension Increased to Amlodipine 10 mg daily on 04/22/15. Continue Lisinopril 5 mg daily which was started on 04/30/16. Will monitor BP and adjust as needed. DVT Prophylaxis: Low risk, patient ambulating Discharge Planning CM working on placement which has been difficult. Jazmín Meadows May 01, 2016 09:51
[2016-05-01 21:04] VITALS: BP 164/89; PULSE 107; RESP 18; TEMP 97.9; O2SAT 98
[2016-05-02 08:00] VITALS: BP 133/87; PULSE 91; RESP 18; TEMP 97.7; O2SAT 99
[2016-05-02] MEDS: LISINOPRIL 5 MG TAB PO SCH (08:19)
--- NOTE | 2016-05-02 16:57 | HHI.PR ---
Subjective Remarks Patient seen in room in follow-up for continued discharge planning. Calm sitter and without complaints Objective Vitals Vital Signs Date Time Temp Pulse Resp B/P Pulse Ox O2 Delivery O2 Flow Rate FiO2 05/02/16 08:00 97.7 91 18 133/87 99 05/01/16 21:04 97.9 107 18 164/89 98 I/O 05/01/16 05/01/16 05/01/16 05/02/16 05/02/16 05/02/16 07:00 15:00 23:00 07:00 15:00 23:00 Intake Total 480 ml 480 ml 800 ml Balance 480 ml 480 ml 800 ml Intake Oral 480 ml 480 ml 800 ml # Voids 3 2 2 2 1 3 # Bowel Movements 0 0 0 Objective Remarks GENERAL: This is a well-nourished, well-developed patient, in no apparent distress. CARDIOVASCULAR: Regular rate and rhythm without murmurs, gallops, or rubs. RESPIRATORY: Clear to auscultation. Breath sounds equal bilaterally. No wheezes , rales, or rhonchi. GASTROINTESTINAL: Abdomen soft, non-tender, nondistended. Normal active bowel sounds MUSCULOSKELETAL: Extremities without clubbing, cyanosis, or edema. 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
[2016-05-02] MEDS: LORazepam 0.5 MG TAB PO PRN (21:10)
[2016-05-02 21:11] VITALS: BP 144/84; PULSE 114; RESP 18; TEMP 99.1; O2SAT 98
[2016-05-03 08:00] VITALS: BP 133/85; PULSE 95; RESP 20; TEMP 97.2; O2SAT 98
[2016-05-03] MEDS: LISINOPRIL 5 MG TAB PO SCH (09:53)
--- NOTE | 2016-05-03 10:04 | HHI.PR ---
Subjective Remarks No acute complaints. No change in clinical status. Objective Vitals Vital Signs Date Time Temp Pulse Resp B/P Pulse Ox O2 Delivery O2 Flow Rate FiO2 05/03/16 08:00 97.2 95 20 133/85 98 05/02/16 21:11 99.1 114 18 144/84 98 I/O 05/02/16 05/02/16 05/02/16 05/03/16 05/03/16 05/03/16 07:00 15:00 23:00 07:00 15:00 23:00 Intake Total 800 ml Balance 800 ml Intake Oral 800 ml # Voids 2 1 5 2 # Bowel Movements 0 Objective Remarks GENERAL: Pleasant well-nourished, well-developed patient in no apparent distress. CARDIOVASCULAR: Regular rate and rhythm. RESPIRATORY: No accessory muscle use. Clear to auscultation. Breath sounds equal bilaterally. GASTROINTESTINAL: Abdomen soft, non-tender, nondistended. NEUROLOGICAL: Awake and alert. Motor grossly within normal limits. Normal speech. 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 Total Self Care Deficit: DCF and case management are involved. Youssef act was lifted by psychiatrist Dandy Walker Malformation and Intellectual Disability: Chronic. Reported mental capacity of [id number]. Hypertension Increased to Amlodipine 10 mg daily on 04/22/15. Continue Lisinopril 5 mg daily which was started on 04/30/16. Will monitor BP and adjust as needed. DVT Prophylaxis: Low risk, patient ambulating Discharge Planning CM working on placement which has been difficult. Jazmín Meadows May 03, 2016 10:04
[2016-05-03 20:00] VITALS: BP 140/93; PULSE 101; RESP 18; TEMP 97.9; O2SAT 99
[2016-05-03] MEDS: LORazepam 0.5 MG TAB PO PRN (21:21)
[2016-05-04 08:00] VITALS: BP 136/89; PULSE 89; RESP 16; TEMP 96.1; O2SAT 99
[2016-05-04] MEDS: LISINOPRIL 5 MG TAB PO SCH (09:08)
--- NOTE | 2016-05-04 09:21 | HHI.PR ---
Subjective Remarks Patient seen and examined today. Patient denies any new complaints. Sitter had to be initiated because patient is a flight risk. Objective Vitals Vital Signs Date Time Temp Pulse Resp B/P Pulse Ox O2 Delivery O2 Flow Rate FiO2 05/04/16 08:00 96.1 89 16 136/89 99 05/03/16 20:00 97.9 101 18 140/93 99 I/O 05/03/16 05/03/16 05/03/16 05/04/16 05/04/16 05/04/16 07:00 15:00 23:00 07:00 15:00 23:00 Intake Total 1000 ml 650 ml 480 ml Balance 1000 ml 650 ml 480 ml Intake Oral 1000 ml 650 ml 480 ml # Voids 2 4 5 4 # Bowel Movements 0 Objective Remarks GENERAL: Well-developed, well-nourished, in no acute distress. alert and orientated to person, city, state, president HEENT: Head is normocephalic without any lesions or masses noted. Facial features are symmetric. Eyes: Extraocular muscles are intact. Conjunctivae were clear. NECK: Supple without any masses. Trachea midline no deviation. CARDIAC: Regular rhythm, regular rate. S1/S2 are heard. No murmurs gallops or rubs. LUNGS: Clear to auscultation bilaterally. No wheeze, rhonchi or rales. No use of accessory muscles on inspiration or expiration. ABDOMEN: Soft, nontender. Nondistended. Bowel sounds heard in all 4 quadrants. No organomegaly or masses. Negative rebound, negative guarding EXTREMITIES: No edema, pulses are equal bilaterally. No cyanosis or clubbing NEUROLOGY: Mood and affect appear appropriate. Cranial nerves II through XII grossly intact. 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 Total Self Care Deficit: DCF and case management are involved. Needs placement. Patient really Youssef acted and Youssef act was lifted by psychiatrist Ant Guillen Malformation and Intellectual Disability: Chronic. Reported mental capacity of [id number]. Patient is a flight risk, patient had to have sitter ordered Hypertension Amlodipine 10 mg daily Lisinopril 5 mg daily, increase to 10 mg daily Continue monitor blood pressure DVT Prophylaxis: Low risk, patient ambulating Discharge Planning Case management, [facility] are actively pursuing discharge planning. 04/30/16 HAVE BEEN ATTEMPTING TO GET PALCEMENT WITH NO AVAIL. PATIENT IS A 21 YR OLD MAIL WITH DANDY WALKER SYNDROME AND MENATL CAPACITY OF A 9 YEAR OLD. THE STEP FATHER IS VERY HARD TO GET A CALL BACK FROM AND FOR THIS SPECIAL NEDS TYPE PATIENT THE BEST TYPE OF FACILITY IS [facility]. BUT THEY HAVE TO BE PLACED THROUGH [employer]. WAS ABLE TO GET CONTACT INFORMATION FOR THIS AND WILL REACH OUT FOR ASSISTANCE AND MOVE FORWARD WITH APPLICTION PROCESS. IF APPLIABLE, SHEREE FELIPE LPN/Yaniv Ordoñez May 04, 2016 09:20
[2016-05-04 20:00] VITALS: BP 133/84; PULSE 92; RESP 14; TEMP 98; O2SAT 97
[2016-05-04] MEDS: LORazepam 0.5 MG TAB PO PRN (21:45)
[2016-05-05 08:00] VITALS: BP 136/94; PULSE 93; RESP 18; TEMP 96.4; O2SAT 98
[2016-05-05] MEDS: LISINOPRIL 10 MG TAB PO SCH (08:27)
--- NOTE | 2016-05-05 08:31 | HHI.PR ---
Subjective Remarks Patient seen and examined today. Patient denies any new complaints. No change in clinical status. Awaiting case management for discharge planning Objective Vitals Vital Signs Date Time Temp Pulse Resp B/P Pulse Ox O2 Delivery O2 Flow Rate FiO2 05/04/16 20:00 98.0 92 14 133/84 97 I/O 05/04/16 05/04/16 05/04/16 05/05/16 05/05/16 05/05/16 07:00 15:00 23:00 07:00 15:00 23:00 Intake Total 480 ml 740 ml 480 ml 480 ml Balance 480 ml 740 ml 480 ml 480 ml Intake Oral 480 ml 740 ml 480 ml 480 ml # Voids 4 4 3 2 # Bowel Movements 0 0 0 Objective Remarks GENERAL: Well-developed, well-nourished, in no acute distress. alert and orientated to person, city, state, president HEENT: Head is normocephalic without any lesions or masses noted. Facial features are symmetric. Eyes: Extraocular muscles are intact. Conjunctivae were clear. NECK: Supple without any masses. Trachea midline no deviation. CARDIAC: Regular rhythm, regular rate. S1/S2 are heard. No murmurs gallops or rubs. LUNGS: Clear to auscultation bilaterally. No wheeze, rhonchi or rales. No use of accessory muscles on inspiration or expiration. ABDOMEN: Soft, nontender. Nondistended. Bowel sounds heard in all 4 quadrants. No organomegaly or masses. Negative rebound, negative guarding EXTREMITIES: No edema, pulses are equal bilaterally. No cyanosis or clubbing NEUROLOGY: Mood and affect appear appropriate. Cranial nerves II through XII grossly intact. 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 Total Self Care Deficit: DCF and case management are involved. Needs placement. Patient really Youssef acted and Youssef act was lifted by psychiatrist Ant Guillen Malformation and Intellectual Disability: Chronic. Reported mental capacity of [id number]. Patient is a flight risk, patient had to have sitter ordered Hypertension Amlodipine 10 mg daily Lisinopril 10 mg daily Continue monitor blood pressure DVT Prophylaxis: Low risk, patient ambulating Discharge Planning Case management, [facility] are actively pursuing discharge planning. Yaniv Simmons May 05, 2016 08:31
[2016-05-05 20:00] VITALS: BP 148/93; PULSE 107; RESP 15; TEMP 98.5; O2SAT 98
[2016-05-05] MEDS: LORazepam 0.5 MG TAB PO PRN (20:49)
[2016-05-06 08:00] VITALS: BP 111/81; PULSE 106; RESP 20; TEMP 96.5; O2SAT 95
[2016-05-06] MEDS: LISINOPRIL 10 MG TAB PO SCH (08:18)
--- NOTE | 2016-05-06 09:29 | HHI.PR ---
Subjective Remarks Patient seen and examined today. Patient denies any new complaints. No change in clinical status. Awaiting case management for discharge planning Objective Vitals Vital Signs Date Time Temp Pulse Resp B/P Pulse Ox O2 Delivery O2 Flow Rate FiO2 05/06/16 08:00 96.5 106 20 111/81 95 05/05/16 20:00 98.5 107 15 148/93 98 I/O 05/05/16 05/05/16 05/05/16 05/06/16 05/06/16 05/06/16 07:00 15:00 23:00 07:00 15:00 23:00 Intake Total 480 ml 1440 ml 840 ml 480 ml Balance 480 ml 1440 ml 840 ml 480 ml Intake Oral 480 ml 1440 ml 840 ml 480 ml # Voids 2 6 2 2 # Bowel Movements 0 2 0 0 Objective Remarks GENERAL: Well-developed, well-nourished, in no acute distress. alert and orientated to person, city, state, president HEENT: Head is normocephalic without any lesions or masses noted. Facial features are symmetric. Eyes: Extraocular muscles are intact. Conjunctivae were clear. NECK: Supple without any masses. Trachea midline no deviation. CARDIAC: Regular rhythm, regular rate. S1/S2 are heard. No murmurs gallops or rubs. LUNGS: Clear to auscultation bilaterally. No wheeze, rhonchi or rales. No use of accessory muscles on inspiration or expiration. ABDOMEN: Soft, nontender. Nondistended. Bowel sounds heard in all 4 quadrants. No organomegaly or masses. Negative rebound, negative guarding EXTREMITIES: No edema, pulses are equal bilaterally. No cyanosis or clubbing NEUROLOGY: Mood and affect appear appropriate. Cranial nerves II through XII grossly intact. 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 Total Self Care Deficit: DCF and case management are involved. Needs placement. Patient really Youssef acted and Youssef act was lifted by psychiatrist Ant Walker Malformation and Intellectual Disability: Chronic. Reported mental capacity of [id number]. Patient is a flight risk, patient had to have sitter ordered Hypertension Amlodipine 10 mg daily Lisinopril 10 mg daily Continue monitor blood pressure DVT Prophylaxis: Low risk, patient ambulating Discharge Planning Case management, [facility] are actively pursuing discharge planning. Yaniv Simmons May 06, 2016 09:29
[2016-05-06 20:00] VITALS: BP 115/93; PULSE 110; RESP 20; TEMP 97.9; O2SAT 98
[2016-05-07 08:00] VITALS: BP 160/94; PULSE 93; RESP 18; TEMP 97.4; O2SAT 100
[2016-05-07] MEDS: LISINOPRIL 10 MG TAB PO SCH (08:26)
--- NOTE | 2016-05-07 08:33 | HHI.PR ---
Subjective Remarks Patient seen and examined today. Patient has any new complaints. No change in clinical status. Awaiting case management for discharge planning Objective Vitals Vital Signs Date Time Temp Pulse Resp B/P Pulse Ox O2 Delivery O2 Flow Rate FiO2 05/06/16 20:00 97.9 110 20 115/93 98 I/O 05/06/16 05/06/16 05/06/16 05/07/16 05/07/16 05/07/16 07:00 15:00 23:00 07:00 15:00 23:00 Intake Total 480 ml 840 ml 100 ml 680 ml Balance 480 ml 840 ml 100 ml 680 ml Intake Oral 480 ml 840 ml 100 ml 680 ml # Voids 2 4 2 3 # Bowel Movements 0 0 Objective Remarks GENERAL: Well-developed, well-nourished, in no acute distress. alert and orientated to person, city, state, president HEENT: Head is normocephalic without any lesions or masses noted. Facial features are symmetric. Eyes: Extraocular muscles are intact. Conjunctivae were clear. NECK: Supple without any masses. Trachea midline no deviation. CARDIAC: Regular rhythm, regular rate. S1/S2 are heard. No murmurs gallops or rubs. LUNGS: Clear to auscultation bilaterally. No wheeze, rhonchi or rales. No use of accessory muscles on inspiration or expiration. ABDOMEN: Soft, nontender. Nondistended. Bowel sounds heard in all 4 quadrants. No organomegaly or masses. Negative rebound, negative guarding EXTREMITIES: No edema, pulses are equal bilaterally. No cyanosis or clubbing NEUROLOGY: Mood and affect appear appropriate. Cranial nerves II through XII grossly intact. 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 Total Self Care Deficit: DCF and case management are involved. Needs placement. Patient really Youssef acted and Youssef act was lifted by psychiatrist Ant Guillen Malformation and Intellectual Disability: Chronic. Reported mental capacity of [id number]. Patient is a flight risk, patient had to have sitter ordered Hypertension Amlodipine 10 mg daily Lisinopril 10 mg daily Continue monitor blood pressure DVT Prophylaxis: Low risk, patient ambulating Discharge Planning Case management, [facility] are actively pursuing discharge planning. Yaniv Simmons May 07, 2016 08:33
[2016-05-07 20:56] VITALS: BP 151/93; PULSE 110; RESP 18; TEMP 98.5; O2SAT 98
[2016-05-08 08:00] VITALS: BP 110/82; PULSE 103; RESP 18; TEMP 98; O2SAT 96
[2016-05-08] MEDS: LISINOPRIL 10 MG TAB PO SCH (09:38)
--- NOTE | 2016-05-08 10:08 | HHI.PR ---
Subjective Remarks Patient seen and examined today. Patient denies any new complaints. No change in clinical status. Awaiting case management for discharge planning. Objective Vitals Vital Signs Date Time Temp Pulse Resp B/P Pulse Ox O2 Delivery O2 Flow Rate FiO2 05/08/16 08:00 98.0 103 18 110/82 96 05/07/16 20:56 98.5 110 18 151/93 98 I/O 05/07/16 05/07/16 05/07/16 05/08/16 05/08/16 05/08/16 07:00 15:00 23:00 07:00 15:00 23:00 Intake Total 680 ml 1050 ml Balance 680 ml 1050 ml Intake Oral 680 ml 1050 ml # Voids 3 4 3 1 # Bowel Movements 0 1 0 Objective Remarks GENERAL: Well-developed, well-nourished, in no acute distress. alert and orientated to person, city, state, president HEENT: Head is normocephalic without any lesions or masses noted. Facial features are symmetric. Eyes: Extraocular muscles are intact. Conjunctivae were clear. NECK: Supple without any masses. Trachea midline no deviation. CARDIAC: Regular rhythm, regular rate. S1/S2 are heard. No murmurs gallops or rubs. LUNGS: Clear to auscultation bilaterally. No wheeze, rhonchi or rales. No use of accessory muscles on inspiration or expiration. ABDOMEN: Soft, nontender. Nondistended. Bowel sounds heard in all 4 quadrants. No organomegaly or masses. Negative rebound, negative guarding EXTREMITIES: No edema, pulses are equal bilaterally. No cyanosis or clubbing NEUROLOGY: Mood and affect appear appropriate. Cranial nerves II through XII grossly intact. 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 Total Self Care Deficit: DCF and case management are involved. Needs placement. Patient really Youssef acted and Youssef act was lifted by psychiatrist Ant Guillen Malformation and Intellectual Disability: Chronic. Reported mental capacity of [id number]. Patient is a flight risk, patient had to have sitter ordered Hypertension Amlodipine 10 mg daily Lisinopril 10 mg daily Continue monitor blood pressure DVT Prophylaxis: Low risk, patient ambulating Discharge Planning Case management, [facility] are actively pursuing discharge planning. Yaniv Simmons May 08, 2016 10:08
[2016-05-08 20:00] VITALS: BP 141/98; PULSE 98; RESP 15; TEMP 97.8; O2SAT 97
[2016-05-09 08:00] VITALS: BP 150/90; PULSE 86; RESP 16; TEMP 97; O2SAT 98
[2016-05-09] MEDS: LISINOPRIL 10 MG TAB PO SCH ×2 (09:00→21:24)
--- NOTE | 2016-05-09 09:48 | HHI.PR ---
Subjective Remarks Patient seen and examined today. Patient denies any new complaints. No change in clinical status. Awaiting case management for discharge planning Objective Vitals Vital Signs Date Time Temp Pulse Resp B/P Pulse Ox O2 Delivery O2 Flow Rate FiO2 05/09/16 08:00 97.0 86 16 150/90 98 05/08/16 20:00 97.8 98 15 141/98 97 I/O 05/08/16 05/08/16 05/08/16 05/09/16 05/09/16 05/09/16 07:00 15:00 23:00 07:00 15:00 23:00 Intake Total 750 ml 480 ml 480 ml 0 ml Balance 750 ml 480 ml 480 ml 0 ml Intake Oral 750 ml 480 ml 480 ml IV Total 0 ml # Voids 1 5 2 1 # Bowel Movements 1 0 0 Objective Remarks GENERAL: Well-developed, well-nourished, in no acute distress. alert and orientated to person, city, state, president HEENT: Head is normocephalic without any lesions or masses noted. Facial features are symmetric. Eyes: Extraocular muscles are intact. Conjunctivae were clear. NECK: Supple without any masses. Trachea midline no deviation. CARDIAC: Regular rhythm, regular rate. S1/S2 are heard. No murmurs gallops or rubs. LUNGS: Clear to auscultation bilaterally. No wheeze, rhonchi or rales. No use of accessory muscles on inspiration or expiration. ABDOMEN: Soft, nontender. Nondistended. Bowel sounds heard in all 4 quadrants. No organomegaly or masses. Negative rebound, negative guarding EXTREMITIES: No edema, pulses are equal bilaterally. No cyanosis or clubbing NEUROLOGY: Mood and affect appear appropriate. Cranial nerves II through XII grossly intact. 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 Total Self Care Deficit: DCF and case management are involved. Needs placement. Patient Youssef acted and Youssef act was lifted by psychiatrist Ant Guillen Malformation and Intellectual Disability: Chronic. Reported mental capacity of [id number]. Patient is a flight risk, patient had to have sitter ordered Hypertension Amlodipine 10 mg daily Lisinopril 10 mg daily, increase to twice daily Continue monitor blood pressure DVT Prophylaxis: Low risk, patient ambulating Discharge Planning Case management, [facility] are actively pursuing discharge planning. Yaniv Simmons May 09, 2016 09:48
[2016-05-09 20:00] VITALS: BP 143/81; PULSE 89; RESP 18; TEMP 98.4; O2SAT 100
[2016-05-10 08:00] VITALS: BP 124/86; PULSE 111; RESP 17; TEMP 96.9; O2SAT 97
[2016-05-10] MEDS: LISINOPRIL 10 MG TAB PO SCH ×2 (09:03→20:42)
--- NOTE | 2016-05-10 11:55 | HHI.PR ---
Subjective Remarks Patient seen and examined today. Patient has any new complaints. No change in clinical status. Awaiting case management for discharge planning Objective Vitals Vital Signs Date Time Temp Pulse Resp B/P Pulse Ox O2 Delivery O2 Flow Rate FiO2 05/10/16 08:00 96.9 111 17 124/86 97 05/09/16 20:00 98.4 89 18 143/81 100 I/O 05/09/16 05/09/16 05/09/16 05/10/16 05/10/16 05/10/16 07:00 15:00 23:00 07:00 15:00 23:00 Intake Total 480 ml 620 ml 480 ml 480 ml Balance 480 ml 620 ml 480 ml 480 ml Intake Oral 480 ml 620 ml 480 ml 480 ml IV Total 0 ml # Voids 1 5 2 2 # Bowel Movements 0 2 0 0 Objective Remarks GENERAL: Well-developed, well-nourished, in no acute distress. alert and orientated to person, city, state, president HEENT: Head is normocephalic without any lesions or masses noted. Facial features are symmetric. Eyes: Extraocular muscles are intact. Conjunctivae were clear. NECK: Supple without any masses. Trachea midline no deviation. CARDIAC: Regular rhythm, regular rate. S1/S2 are heard. No murmurs gallops or rubs. LUNGS: Clear to auscultation bilaterally. No wheeze, rhonchi or rales. No use of accessory muscles on inspiration or expiration. ABDOMEN: Soft, nontender. Nondistended. Bowel sounds heard in all 4 quadrants. No organomegaly or masses. Negative rebound, negative guarding EXTREMITIES: No edema, pulses are equal bilaterally. No cyanosis or clubbing NEUROLOGY: Mood and affect appear appropriate. Cranial nerves II through XII grossly intact. 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 Total Self Care Deficit: DCF and case management are involved. Needs placement. Patient Youssef acted and Youssef act was lifted by psychiatrist Ant Walker Malformation and Intellectual Disability: Chronic. Reported mental capacity of [id number]. Patient is a flight risk, patient had to have sitter ordered Hypertension Amlodipine 10 mg daily Lisinopril 10 mg daily, increase to twice daily Continue monitor blood pressure DVT Prophylaxis: Low risk, patient ambulating Discharge Planning Case management, [facility] are actively pursuing discharge planning. Yaniv Simmons May 10, 2016 11:55
[2016-05-10 20:00] VITALS: BP 171/86; PULSE 98; RESP 18; TEMP 98.6; O2SAT 97
[2016-05-11 08:00] VITALS: BP 138/72; PULSE 77; RESP 12; TEMP 97.9; O2SAT 99
[2016-05-11] MEDS: LISINOPRIL 10 MG TAB PO SCH ×2 (09:00→20:23)
--- NOTE | 2016-05-11 12:19 | HHI.PR ---
Subjective Remarks No acute complaints. No change in clinical status. Objective Vitals Vital Signs Date Time Temp Pulse Resp B/P Pulse Ox O2 Delivery O2 Flow Rate FiO2 05/11/16 08:00 97.9 77 12 138/72 99 05/10/16 20:00 98.6 98 18 171/86 97 I/O 05/10/16 05/10/16 05/10/16 05/11/16 05/11/16 05/11/16 07:00 15:00 23:00 07:00 15:00 23:00 Intake Total 480 ml 800 ml 650 ml 200 ml Balance 480 ml 800 ml 650 ml 200 ml Intake Oral 480 ml 800 ml 650 ml 200 ml # Voids 2 5 3 2 # Bowel Movements 0 0 Objective Remarks GENERAL: Pleasant well-nourished, well-developed patient in no apparent distress. CARDIOVASCULAR: Tachycardic rate 106 with regular rhythm. RESPIRATORY: No accessory muscle use. Clear to auscultation. Breath sounds equal bilaterally. GASTROINTESTINAL: Abdomen soft, non-tender, nondistended. NEUROLOGICAL: Awake and alert. Motor grossly within normal limits. Normal speech. 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 Total Self Care Deficit: DCF and case management are involved. Youssef act was lifted by psychiatrist Dandy Walker Malformation and Intellectual Disability: Chronic. Reported mental capacity of [id number]. Hypertension Amlodipine 10 mg daily. Lisinopril 10 mg po bid. Will monitor BP and adjust regimen as needed. DVT Prophylaxis: Low risk, patient ambulating Discharge Planning medical reimbursement manager has tried to contact father with no return calls. CM contacted DCF case finisher who stated patient's father is going to the Social Security office to take himself off as patients payee and not be involved. [place] [employer] did a well check at father's address per CM request but there was no one home and no concerning signs. Patient awaiting placement. Jazmín Meadows May 11, 2016 12:19
[2016-05-11 20:00] VITALS: BP 139/79; PULSE 98; RESP 20; TEMP 97.1; O2SAT 99
[2016-05-11] MEDS: LORazepam 0.5 MG TAB PO PRN (20:23)
[2016-05-12] MEDS: LISINOPRIL 10 MG TAB PO SCH ×2 (07:41→20:32)
[2016-05-12 08:00] VITALS: BP 132/76; PULSE 73; RESP 18; TEMP 96.3; O2SAT 99
--- NOTE | 2016-05-12 09:00 | HHI.PR ---
Subjective Remarks No acute complaints. No change in clinical status. Objective Vitals Vital Signs Date Time Temp Pulse Resp B/P Pulse Ox O2 Delivery O2 Flow Rate FiO2 05/12/16 08:00 96.3 73 18 132/76 99 05/11/16 20:00 97.1 98 20 139/79 99 I/O 05/11/16 05/11/16 05/11/16 05/12/16 05/12/16 05/12/16 07:00 15:00 23:00 07:00 15:00 23:00 Intake Total 200 ml 240 ml 480 ml Balance 200 ml 240 ml 480 ml Intake Oral 200 ml 240 ml 480 ml # Voids 2 5 2 # Bowel Movements 0 0 Objective Remarks GENERAL: Pleasant well-nourished, well-developed patient in no apparent distress. CARDIOVASCULAR: Regular rate and rhythm. RESPIRATORY: No accessory muscle use. Clear to auscultation. Breath sounds equal bilaterally. GASTROINTESTINAL: Abdomen soft, non-tender, nondistended. NEUROLOGICAL: Awake and alert. Motor grossly within normal limits. Normal speech. 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 Total Self Care Deficit: DCF and case management are involved. Youssef act was lifted by psychiatrist Dandy Walker Malformation and Intellectual Disability: Chronic. Reported mental capacity of [id number]. Hypertension Amlodipine 10 mg daily. Lisinopril 10 mg po bid. Will monitor BP and adjust regimen as needed. DVT Prophylaxis: Low risk, patient ambulating Discharge Planning donor relations manager has tried to contact father with no return calls. CM contacted DCF telephonic case manager who stated patient's father is going to the Social Security office to take himself off as patients payee and not be involved. [place] [employer] did a well check at father's address per CM request but there was no one home and no concerning signs. Patient awaiting placement. Jazmín Meadows May 12, 2016 09:00
[2016-05-12 20:00] VITALS: BP 143/87; PULSE 94; RESP 18; TEMP 96.4; O2SAT 99
[2016-05-12] MEDS: LORazepam 0.5 MG TAB PO PRN (20:32)
[2016-05-13 08:00] VITALS: BP 137/88; PULSE 91; RESP 16; TEMP 95.7; O2SAT 99
[2016-05-13] MEDS: LISINOPRIL 10 MG TAB PO SCH ×2 (08:56→20:26)
--- NOTE | 2016-05-13 12:21 | HHI.PR ---
Subjective Remarks No acute complaints. No change in clinical status. Objective Vitals Vital Signs Date Time Temp Pulse Resp B/P Pulse Ox O2 Delivery O2 Flow Rate FiO2 05/13/16 08:00 95.7 91 16 137/88 99 05/12/16 20:00 96.4 94 18 143/87 99 I/O 05/12/16 05/12/16 05/12/16 05/13/16 05/13/16 05/13/16 07:00 15:00 23:00 07:00 15:00 23:00 Intake Total 480 ml 600 ml 480 ml 480 ml Balance 480 ml 600 ml 480 ml 480 ml Intake Oral 480 ml 600 ml 480 ml 480 ml # Voids 2 3 2 2 # Bowel Movements 0 1 0 0 Objective Remarks GENERAL: Pleasant well-nourished, well-developed patient in no apparent distress sitting in chair. CARDIOVASCULAR: Mildly tachycardic rate and regular rhythm. RESPIRATORY: No accessory muscle use. Clear to auscultation. Breath sounds equal bilaterally. GASTROINTESTINAL: Abdomen soft, non-tender, nondistended. NEUROLOGICAL: Awake and alert. Motor grossly within normal limits. Normal speech. 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 Total Self Care Deficit: DCF and case management are involved. Youssef act was lifted by psychiatrist Dandy Walker Malformation and Intellectual Disability: Chronic. Reported mental capacity of [id number]. Hypertension Amlodipine 10 mg daily. Lisinopril 10 mg po bid. Monitor BP and adjust regimen as needed. DVT Prophylaxis: Low risk, patient ambulating Discharge Planning senior asset manager has tried to contact father with no return calls. CM contacted DCF trimming caser who stated patient's father is going to the Social Security office to take himself off as patients payee and not be involved. [place] [employer] did a well check at father's address per CM request but there was no one home and no concerning signs. Patient awaiting placement. Jazmín Meadows May 13, 2016 12:21
[2016-05-13 20:00] VITALS: BP 119/83; PULSE 106; RESP 16; TEMP 99.3; O2SAT 99
[2016-05-13] MEDS: LORazepam 0.5 MG TAB PO PRN (22:48)
[2016-05-14 08:00] VITALS: BP 137/70; PULSE 84; RESP 18; TEMP 97.6; O2SAT 98
[2016-05-14] MEDS: LISINOPRIL 10 MG TAB PO SCH ×2 (09:41→21:00)
--- NOTE | 2016-05-14 13:19 | HHI.PR ---
Subjective Remarks No acute complaints. No change in clinical status. Objective Vitals Vital Signs Date Time Temp Pulse Resp B/P Pulse Ox O2 Delivery O2 Flow Rate FiO2 05/14/16 08:00 97.6 84 18 137/70 98 05/13/16 20:00 99.3 106 16 119/83 99 I/O 05/13/16 05/13/16 05/13/16 05/14/16 05/14/16 05/14/16 07:00 15:00 23:00 07:00 15:00 23:00 Intake Total 480 ml 480 ml 240 ml Balance 480 ml 480 ml 240 ml Intake Oral 480 ml 480 ml 240 ml # Voids 2 3 2 1 # Bowel Movements 0 2 0 0 Objective Remarks GENERAL: Pleasant well-nourished, well-developed patient in no apparent distress. CARDIOVASCULAR: Regular rate and rhythm. RESPIRATORY: No accessory muscle use. Clear to auscultation. Breath sounds equal bilaterally. GASTROINTESTINAL: Abdomen soft, non-tender, nondistended. NEUROLOGICAL: Awake and alert. Motor grossly within normal limits. Normal speech. 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 Total Self Care Deficit: DCF and case management are involved. Youssef act was lifted by psychiatrist Dandy Walker Malformation and Intellectual Disability: Chronic. Reported mental capacity of [id number]. Hypertension Amlodipine 10 mg daily. Lisinopril 10 mg po bid. Monitor BP and adjust regimen as needed. DVT Prophylaxis: Low risk, patient ambulating Discharge Planning policy manager has tried to contact father with no return calls. CM contacted DCF porter sample case who stated patient's father is going to the Social Security office to take himself off as patients payee and not be involved. [place] [employer] did a well check at father's address per CM request but there was no one home and no concerning signs. Patient awaiting placement. Jazmín Meadows May 14, 2016 13:19
[2016-05-14 20:00] VITALS: BP_SYST 139; BP_SYST 140; BP_DIAS 88; PULSE 100; PULSE 83; RESP 18; TEMP 98; TEMP 98.2; O2SAT 96; O2SAT 98
[2016-05-15 08:00] VITALS: BP 147/91; PULSE 97; RESP 16; TEMP 98.1; O2SAT 99
[2016-05-15] MEDS: LISINOPRIL 10 MG TAB PO SCH ×2 (08:45→20:57)
--- NOTE | 2016-05-15 11:34 | HHI.PR ---
Subjective Remarks Patient with Dandy Walker Syndrome and mental retardation awaiting placement at facility. No acute complaints. Objective Vitals Vital Signs Date Time Temp Pulse Resp B/P Pulse Ox O2 Delivery O2 Flow Rate FiO2 05/15/16 08:00 98.1 97 16 147/91 99 05/14/16 20:00 98.0 100 18 140/88 98 I/O 05/14/16 05/14/16 05/14/16 05/15/16 05/15/16 05/15/16 07:00 15:00 23:00 07:00 15:00 23:00 Intake Total 240 ml 310 ml Output Total 0 ml Balance 240 ml 310 ml 0 ml Intake Oral 240 ml 310 ml Stool Total 0 ml # Voids 1 5 # Bowel Movements 0 Objective Remarks GENERAL: Pleasant well-nourished, well-developed patient in no apparent distress. CARDIOVASCULAR: Tachycardic rate with regular rhythm. RESPIRATORY: No accessory muscle use. Clear to auscultation. Breath sounds equal bilaterally. GASTROINTESTINAL: Abdomen soft, non-tender, nondistended. NEUROLOGICAL: Awake and alert. Motor grossly within normal limits. Normal speech. 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 Total Self Care Deficit: DCF and case management are involved. Youssef act was lifted by psychiatrist Dandy Walker Malformation and Intellectual Disability: Chronic. Reported mental capacity of [id number]. Hypertension Amlodipine 10 mg daily. Lisinopril 10 mg po bid. Monitor BP and adjust regimen as needed. Tachycardia: Patient has been more persistently tachycardic since about Apr 26. HR was approximately 120 on exam today. No arrhythmia noted. Patient does not complain of anything. -Thyroid function is normal. -Baseline EKG with sinus rhythm rate 93; one PAC. T-wave inversion in lead 3 and aVF which is likely normal for age. -Will order CBC and BMP to assess for anemia, dehydration, etc. as patient has not had labs in 1.5 months and at that time HR was normal. -Labs reviewed with increased red blood cell count and mild prerenal azotemia. Will encourage po hydration. -May need to consider beta ashley if HR remains significantly elevated although will avoid use if possible. DVT Prophylaxis: Low risk, patient ambulating Discharge Planning sugar plantation manager has tried to contact father with no return calls. CM contacted [facility] rn case manager who stated patient's father is going to the Social Security office to take himself off as patients payee and not be involved. [place] [employer] did a well check at father's address per CM request but there was no one home and no concerning signs. Patient awaiting placement. Jazmín Meadows May 15, 2016 11:34
[2016-05-15 14:21] LABS: AUTOMATED NEUTROPHIL # 5.4 TH/MM3 (1.8-7.7); BASOPHIL % 0.4 % (0.0-2.0); EOSINOPHIL # 0.1 TH/MM3 (0-0.4); EOSINOPHIL % 0.8 % (0.0-4.0); HEMATOCRIT 48.6 % (39.0-51.0); HEMO FLAGS DIFF FINAL; LYMPHOCYTE # 1.4 TH/MM3 (1.0-4.8); MEAN CELL VOLUME 78.8 FL (80.0-100.0); MEAN CORPUSCULAR HEMOGLOBIN 25.9 PG (27.0-34.0); MEAN CORPUSCULAR HGB CONC 32.9 % (32.0-36.0); MONO % 7.7 % (0.0-8.0); NEUT % 73.1 % (16.0-70.0); PLATELET COUNT 224 TH/MM3 (150-450); RED BLOOD COUNT 6.16 MIL/MM3 (4.50-5.90); WHITE BLOOD COUNT 7.5 TH/MM3 (4.0-11.0)
[2016-05-15 14:29] LABS: POTASSIUM 4.2 MEQ/L (3.5-5.1)
[2016-05-15 14:31] LABS: BICARBONATE 33.3 MEQ/L (21.0-32.0)
[2016-05-15 20:00] VITALS: BP 134/89; PULSE 102; RESP 18; TEMP 96.6; O2SAT 99
[2016-05-16 08:00] VITALS: BP 103/68; PULSE 101; RESP 18; TEMP 97.5; O2SAT 99
[2016-05-16] MEDS: LISINOPRIL 10 MG TAB PO SCH ×2 (09:00→21:02)
--- NOTE | 2016-05-16 12:28 | EKG ---
Date Performed: 05/15/2016 Time Performed: 14:08:18 PTAGE: 21 years EKG: Sinus rhythm with PAC(s) Inferior T wave changes may be normal for age Borderline ECG NO PREVIOUS TRACING DOCTOR: Manjit Moore Interpretating Date/Time 05/16/2016 12:25:37
--- NOTE | 2016-05-16 17:04 | HHI.PR ---
Subjective Remarks Patient seen today ambulatory on floor. No new complaints today. Still awaiting discharge planning Objective Vitals Vital Signs Date Time Temp Pulse Resp B/P Pulse Ox O2 Delivery O2 Flow Rate FiO2 05/16/16 08:00 97.5 101 18 103/68 99 05/15/16 20:00 96.6 102 18 134/89 99 I/O 05/15/16 05/15/16 05/15/16 05/16/16 05/16/16 05/16/16 07:00 15:00 23:00 07:00 15:00 23:00 Intake Total 1040 ml 900 ml Output Total 0 ml Balance 0 ml 1040 ml 900 ml Intake Oral 1040 ml 900 ml Stool Total 0 ml # Voids 5 3 2 # Bowel Movements 1 Result Diagram: 05/15/16 1353 05/15/16 1353 Objective Remarks GENERAL: This is a well-nourished, well-developed patient, in no apparent distress. CARDIOVASCULAR: Regular rate and rhythm without murmurs, gallops, or rubs. RESPIRATORY: Clear to auscultation. Breath sounds equal bilaterally. No wheezes , rales, or rhonchi. GASTROINTESTINAL: Abdomen soft, non-tender, nondistended. Normal active bowel sounds MUSCULOSKELETAL: Extremities without clubbing, cyanosis, or edema. NEURO: Alert & Oriented , pleasant Procedures none A/P Problem List: (1) Total self-care deficit ICD Code: R41.89 Status: Acute (2) Dandy Walker malformation ICD Code: Q03.1 Status: Chronic (3) Mental retardation ICD Code: F79 Status: Chronic (4) HTN (hypertension) ICD Code: I10 Status: Acute (5) Tachycardia ICD Code: R00.0 Status: Acute Assessment and Plan Patient still requiring supervision; sitter in room Continue to work with case management for placement Mable Henry MD May 16, 2016 17:04
[2016-05-16 20:00] VITALS: BP 124/78; PULSE 93; RESP 18; TEMP 98.7; O2SAT 95
[2016-05-17] MEDS: LISINOPRIL 10 MG TAB PO SCH ×2 (08:00→21:43)
[2016-05-17 08:10] VITALS: BP 151/84; PULSE 94; RESP 18; TEMP 98.2; O2SAT 99
--- NOTE | 2016-05-17 11:43 | HHI.PR ---
Subjective Remarks No acute complaints. No change in clinical status. Objective Vitals Vital Signs Date Time Temp Pulse Resp B/P Pulse Ox O2 Delivery O2 Flow Rate FiO2 05/17/16 08:10 98.2 94 18 151/84 99 05/16/16 20:00 98.7 93 18 124/78 95 I/O 05/16/16 05/16/16 05/16/16 05/17/16 05/17/16 05/17/16 07:00 15:00 23:00 07:00 15:00 23:00 Intake Total 900 ml 100 ml 280 ml Balance 900 ml 100 ml 280 ml Intake Oral 900 ml 100 ml 280 ml # Voids 2 1 2 # Bowel Movements 1 0 0 Result Diagram: 05/15/16 1353 05/15/16 1353 Objective Remarks GENERAL: Pleasant well-nourished, well-developed patient in no apparent distress. CARDIOVASCULAR: Tachycardic rate with regular rhythm. RESPIRATORY: No accessory muscle use. Clear to auscultation. Breath sounds equal bilaterally. NEUROLOGICAL: Awake and alert. Motor grossly within normal limits. Normal speech. 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 Total Self Care Deficit: DCF and case management are involved. Youssef act was lifted by psychiatrist Dandy Walker Malformation and Intellectual Disability: Chronic. Reported mental capacity of [id number]. Hypertension Amlodipine 10 mg daily. Lisinopril 10 mg po bid. Monitor BP and adjust regimen as needed. Tachycardia: Patient has been more persistently tachycardic since about Apr 26. No arrhythmia noted. -Thyroid function is normal. -Baseline EKG with sinus rhythm rate 93; one PAC. T-wave inversion in lead 3 and aVF which is likely normal for age. -Labs reviewed with increased red blood cell count and mild prerenal azotemia. Nursing order to push po fluids. -May need to consider beta ashley if HR remains significantly elevated although will avoid use if possible. DVT Prophylaxis: Low risk, patient ambulating Discharge Planning distillery manager has tried to contact father with no return calls. CM contacted [facility] counseling case manager who stated patient's father is going to the Social Security office to take himself off as patients payee and not be involved. [place] [employer] did a well check at father's address per CM request but there was no one home and no concerning signs. Patient awaiting placement. Jazmín Meadows May 17, 2016 11:43
[2016-05-17 20:00] VITALS: BP 147/83; PULSE 102; RESP 20; TEMP 96; O2SAT 98
[2016-05-18 08:00] VITALS: BP 154/84; PULSE 73; RESP 17; TEMP 97.1; O2SAT 99
--- NOTE | 2016-05-18 09:15 | HHI.PR ---
Subjective Remarks Patient seen and examined today. Patient denies any new complaints. No change in clinical status. Awaiting case management discharge planning Objective Vitals Vital Signs Date Time Temp Pulse Resp B/P Pulse Ox O2 Delivery O2 Flow Rate FiO2 05/17/16 20:00 96.0 102 20 147/83 98 I/O 05/17/16 05/17/16 05/17/16 05/18/16 05/18/16 05/18/16 07:00 15:00 23:00 07:00 15:00 23:00 Intake Total 280 ml 660 ml Balance 280 ml 660 ml Intake Oral 280 ml 660 ml # Voids 2 2 2 # Bowel Movements 0 0 0 Result Diagram: 05/15/16 1353 05/15/16 1353 Objective Remarks GENERAL: Well-developed, well-nourished, in no acute distress. alert and orientated to person, city, state, president HEENT: Head is normocephalic without any lesions or masses noted. Facial features are symmetric. Eyes: Extraocular muscles are intact. Conjunctivae were clear. NECK: Supple without any masses. Trachea midline no deviation. CARDIAC: Regular rhythm, regular rate. S1/S2 are heard. No murmurs gallops or rubs. LUNGS: Clear to auscultation bilaterally. No wheeze, rhonchi or rales. No use of accessory muscles on inspiration or expiration. ABDOMEN: Soft, nontender. Nondistended. Bowel sounds heard in all 4 quadrants. No organomegaly or masses. Negative rebound, negative guarding EXTREMITIES: No edema, pulses are equal bilaterally. No cyanosis or clubbing NEUROLOGY: Mood and affect appear appropriate. Cranial nerves II through XII grossly intact. 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 Total Self Care Deficit: DCF and case management are involved. Needs placement. Patient Mikael acted and Youssef act was lifted by psychiatrist Ant Guillen Malformation and Intellectual Disability: Chronic. Reported mental capacity of [id number]. Patient is a flight risk, patient had to have sitter ordered Hypertension Amlodipine 10 mg daily Lisinopril 10 mg daily, increase to twice daily Continue monitor blood pressure Sinus tachycardia, mild TSH normal in 2012, recheck today Consider low-dose beta ashley if continues DVT Prophylaxis: Low risk, patient ambulating Discharge Planning Case management, [facility] are actively pursuing discharge planning. Yaniv Simmons May 18, 2016 09:15
[2016-05-18] MEDS: LISINOPRIL 10 MG TAB PO SCH ×2 (09:26→20:45)
[2016-05-18 20:00] VITALS: BP 140/91; PULSE 84; RESP 20; TEMP 98.9; O2SAT 99
[2016-05-19 08:00] VITALS: BP 145/73; PULSE 101; RESP 18; TEMP 97.1; O2SAT 97
[2016-05-19] MEDS: LISINOPRIL 10 MG TAB PO SCH ×2 (08:24→20:36)
--- NOTE | 2016-05-19 08:32 | HHI.PR ---
Subjective Remarks Patient seen and examined today. Patient denies any new complaints. No change in clinical status. Awaiting case management for discharge planning. Objective Vitals Vital Signs Date Time Temp Pulse Resp B/P Pulse Ox O2 Delivery O2 Flow Rate FiO2 05/18/16 20:00 98.9 84 20 140/91 99 I/O 05/18/16 05/18/16 05/18/16 05/19/16 05/19/16 05/19/16 07:00 15:00 23:00 07:00 15:00 23:00 Intake Total 1020 ml 1180 ml Balance 1020 ml 1180 ml Intake Oral 1020 ml 1180 ml # Voids 2 2 2 2 # Bowel Movements 0 1 Result Diagram: 05/15/16 1353 05/15/16 1353 Objective Remarks GENERAL: Well-developed, well-nourished, in no acute distress. alert and orientated to person, city, state, president HEENT: Head is normocephalic without any lesions or masses noted. Facial features are symmetric. Eyes: Extraocular muscles are intact. Conjunctivae were clear. NECK: Supple without any masses. Trachea midline no deviation. CARDIAC: Regular rhythm, regular rate. S1/S2 are heard. No murmurs gallops or rubs. LUNGS: Clear to auscultation bilaterally. No wheeze, rhonchi or rales. No use of accessory muscles on inspiration or expiration. ABDOMEN: Soft, nontender. Nondistended. Bowel sounds heard in all 4 quadrants. No organomegaly or masses. Negative rebound, negative guarding EXTREMITIES: No edema, pulses are equal bilaterally. No cyanosis or clubbing NEUROLOGY: Mood and affect appear appropriate. Cranial nerves II through XII grossly intact. 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 Total Self Care Deficit: DCF and case management are involved. Needs placement. Patient Youssef acted and Youssef act was lifted by psychiatrist Ant Guillen Malformation and Intellectual Disability: Chronic. Reported mental capacity of [id number]. Patient is a flight risk, patient had to have sitter ordered Hypertension Amlodipine 10 mg daily Lisinopril 10 mg daily, increase to twice daily Continue monitor blood pressure Sinus tachycardia, mild TSH normal in 2012, recheck today Consider low-dose beta ashley if continues DVT Prophylaxis: Low risk, patient ambulating Discharge Planning Case management, [facility] are actively pursuing discharge planning. Yaniv Simmons May 19, 2016 08:32
[2016-05-19 20:00] VITALS: BP 144/90; PULSE 105; RESP 16; TEMP 98.9; O2SAT 97
[2016-05-20] MEDS: LISINOPRIL 10 MG TAB PO SCH ×2 (07:50→20:49)
[2016-05-20 08:00] VITALS: BP 151/98; PULSE 105; RESP 20; TEMP 96.9; O2SAT 99
--- NOTE | 2016-05-20 09:12 | HHI.PR ---
Subjective Remarks Patient seen and examined today. Patient denies any new complaints. No change in clinical status. Awaiting case management for discharge planning. Objective Vitals Vital Signs Date Time Temp Pulse Resp B/P Pulse Ox O2 Delivery O2 Flow Rate FiO2 05/19/16 20:00 98.9 105 16 144/90 97 I/O 05/19/16 05/19/16 05/19/16 05/20/16 05/20/16 05/20/16 07:00 15:00 23:00 07:00 15:00 23:00 Intake Total 660 ml 420 ml 140 ml Balance 660 ml 420 ml 140 ml Intake Oral 660 ml 420 ml 140 ml IV Total 0 ml # Voids 2 2 2 1 # Bowel Movements 0 0 0 Objective Remarks GENERAL: Well-developed, well-nourished, in no acute distress. alert and orientated to person, city, state, president HEENT: Head is normocephalic without any lesions or masses noted. Facial features are symmetric. Eyes: Extraocular muscles are intact. Conjunctivae were clear. NECK: Supple without any masses. Trachea midline no deviation. CARDIAC: Regular rhythm, regular rate. S1/S2 are heard. No murmurs gallops or rubs. LUNGS: Clear to auscultation bilaterally. No wheeze, rhonchi or rales. No use of accessory muscles on inspiration or expiration. ABDOMEN: Soft, nontender. Nondistended. Bowel sounds heard in all 4 quadrants. No organomegaly or masses. Negative rebound, negative guarding EXTREMITIES: No edema, pulses are equal bilaterally. No cyanosis or clubbing NEUROLOGY: Mood and affect appear appropriate. Cranial nerves II through XII grossly intact. 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 Total Self Care Deficit: DCF and case management are involved. Needs placement. Patient Youssef acted and Youssef act was lifted by psychiatrist Ant Guillen Malformation and Intellectual Disability: Chronic. Reported mental capacity of [id number]. Patient is a flight risk, patient had to have sitter ordered Hypertension Amlodipine 10 mg daily Lisinopril 10 mg daily, increase to twice daily Continue monitor blood pressure Sinus tachycardia, mild TSH normal in 2012, recheck today Consider low-dose beta ashley if continues DVT Prophylaxis: Low risk, patient ambulating Discharge Planning Case management, [facility] are actively pursuing discharge planning. Yaniv Simmons May 20, 2016 09:12
[2016-05-20 20:45] VITALS: BP 112/84; PULSE 86; RESP 20; TEMP 97.1; O2SAT 99
[2016-05-21 08:00] VITALS: BP 139/71; PULSE 84; RESP 19; TEMP 97.5; O2SAT 96
--- NOTE | 2016-05-21 08:18 | HHI.PR ---
Subjective Remarks Patient seen and examined today. Patient denies any new complaints. No change in clinical status. Awaiting case management discharge planning. Objective Vitals Vital Signs Date Time Temp Pulse Resp B/P Pulse Ox O2 Delivery O2 Flow Rate FiO2 05/20/16 20:45 97.1 86 20 112/84 99 I/O 05/20/16 05/20/16 05/20/16 05/21/16 05/21/16 05/21/16 07:00 15:00 23:00 07:00 15:00 23:00 Intake Total 140 ml 1000 ml 1080 ml Balance 140 ml 1000 ml 1080 ml Intake Oral 140 ml 1000 ml 1080 ml # Voids 1 4 7 # Bowel Movements 0 0 1 Objective Remarks GENERAL: Well-developed, well-nourished, in no acute distress. alert and orientated to person, city, state, president HEENT: Head is normocephalic without any lesions or masses noted. Facial features are symmetric. Eyes: Extraocular muscles are intact. Conjunctivae were clear. NECK: Supple without any masses. Trachea midline no deviation. CARDIAC: Regular rhythm, regular rate. S1/S2 are heard. No murmurs gallops or rubs. LUNGS: Clear to auscultation bilaterally. No wheeze, rhonchi or rales. No use of accessory muscles on inspiration or expiration. ABDOMEN: Soft, nontender. Nondistended. Bowel sounds heard in all 4 quadrants. No organomegaly or masses. Negative rebound, negative guarding EXTREMITIES: No edema, pulses are equal bilaterally. No cyanosis or clubbing NEUROLOGY: Mood and affect appear appropriate. Cranial nerves II through XII grossly intact. 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 Total Self Care Deficit: DCF and case management are involved. Needs placement. Patient Youssef acted and Youssef act was lifted by psychiatrist Ant Guillen Malformation and Intellectual Disability: Chronic. Reported mental capacity of [id number]. Patient is a flight risk, patient had to have sitter ordered Hypertension Amlodipine 10 mg daily Lisinopril 10 mg daily, increase to twice daily Continue monitor blood pressure Sinus tachycardia, mild TSH normal in 2012, recheck today Consider low-dose beta ashley if continues DVT Prophylaxis: Low risk, patient ambulating Discharge Planning Case management, [facility] are actively pursuing discharge planning. Yaniv Simmons May 21, 2016 08:18
[2016-05-21] MEDS: LISINOPRIL 10 MG TAB PO SCH ×2 (08:23→21:00)
[2016-05-21] MEDS: LORazepam 0.5 MG TAB PO PRN (13:09)
[2016-05-22] VITALS: BP 111/75; PULSE 83; RESP 18; TEMP 96.7; O2SAT 99
[2016-05-22] MEDS: LISINOPRIL 10 MG TAB PO SCH ×2 (07:39→20:45)
[2016-05-22 08:00] VITALS: BP 134/75; PULSE 101; RESP 18; TEMP 98.2; O2SAT 98
--- NOTE | 2016-05-22 10:03 | HHI.PR ---
Subjective Remarks Patient seen and examined today. Patient has a new complaints. No change in clinical status. Awaiting case management for discharge planning. Objective Vitals Vital Signs Date Time Temp Pulse Resp B/P Pulse Ox O2 Delivery O2 Flow Rate FiO2 05/22/16 08:00 98.2 101 18 134/75 98 05/22/16 00:00 96.7 83 18 111/75 99 05/21/16 20:38 I/O 05/21/16 05/21/16 05/21/16 05/22/16 05/22/16 05/22/16 07:00 15:00 23:00 07:00 15:00 23:00 Intake Total 1080 ml 480 ml Balance 1080 ml 480 ml Intake Oral 1080 ml 480 ml # Voids 7 4 2 2 # Bowel Movements 1 0 0 0 Objective Remarks GENERAL: Well-developed, well-nourished, in no acute distress. alert and orientated to person, city, state, president HEENT: Head is normocephalic without any lesions or masses noted. Facial features are symmetric. Eyes: Extraocular muscles are intact. Conjunctivae were clear. NECK: Supple without any masses. Trachea midline no deviation. CARDIAC: Regular rhythm, regular rate. S1/S2 are heard. No murmurs gallops or rubs. LUNGS: Clear to auscultation bilaterally. No wheeze, rhonchi or rales. No use of accessory muscles on inspiration or expiration. ABDOMEN: Soft, nontender. Nondistended. Bowel sounds heard in all 4 quadrants. No organomegaly or masses. Negative rebound, negative guarding EXTREMITIES: No edema, pulses are equal bilaterally. No cyanosis or clubbing NEUROLOGY: Mood and affect appear appropriate. Cranial nerves II through XII grossly intact. 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 Total Self Care Deficit: DCF and case management are involved. Needs placement. Patient Youssef acted and Youssef act was lifted by psychiatrist Ant Walker Malformation and Intellectual Disability: Chronic. Reported mental capacity of [id number]. Patient is a flight risk, patient had to have sitter ordered Hypertension Amlodipine 10 mg daily Lisinopril 10 mg daily, increase to twice daily Continue monitor blood pressure Sinus tachycardia, mild TSH normal in 2012, recheck today Consider low-dose beta ashley if continues DVT Prophylaxis: Low risk, patient ambulating Discharge Planning Case management, [facility] are actively pursuing discharge planning. Yaniv Simmons May 22, 2016 10:03
[2016-05-22 20:00] VITALS: BP 158/91; PULSE 106; RESP 18; TEMP 99.2; O2SAT 97
[2016-05-22] MEDS: LORazepam 0.5 MG TAB PO PRN (20:45)
[2016-05-23 08:00] VITALS: BP_SYST 131; BP_SYST 140; BP_DIAS 67; BP_DIAS 82; PULSE 77; PULSE 79; RESP 18; TEMP 97; O2SAT 100; O2SAT 96
[2016-05-23] MEDS: LISINOPRIL 10 MG TAB PO SCH ×2 (09:12→21:09)
--- NOTE | 2016-05-23 10:16 | HHI.PR ---
Subjective Remarks Patient seen and examined today. Patient denies any new complaints. No change in clinical status. Awaiting case management for discharge planning. Objective Vitals Vital Signs Date Time Temp Pulse Resp B/P Pulse Ox O2 Delivery O2 Flow Rate FiO2 05/23/16 08:00 97.0 77 18 131/67 100 05/22/16 20:00 99.2 106 18 158/91 97 I/O 05/22/16 05/22/16 05/22/16 05/23/16 05/23/16 05/23/16 07:00 15:00 23:00 07:00 15:00 23:00 Intake Total 620 ml 480 ml 240 ml Balance 620 ml 480 ml 240 ml Intake Oral 620 ml 480 ml 240 ml # Voids 2 2 1 # Bowel Movements 0 0 0 Objective Remarks GENERAL: Well-developed, well-nourished, in no acute distress. alert and orientated to person, city, state, president HEENT: Head is normocephalic without any lesions or masses noted. Facial features are symmetric. Eyes: Extraocular muscles are intact. Conjunctivae were clear. NECK: Supple without any masses. Trachea midline no deviation. CARDIAC: Regular rhythm, regular rate. S1/S2 are heard. No murmurs gallops or rubs. LUNGS: Clear to auscultation bilaterally. No wheeze, rhonchi or rales. No use of accessory muscles on inspiration or expiration. ABDOMEN: Soft, nontender. Nondistended. Bowel sounds heard in all 4 quadrants. No organomegaly or masses. Negative rebound, negative guarding EXTREMITIES: No edema, pulses are equal bilaterally. No cyanosis or clubbing NEUROLOGY: Mood and affect appear appropriate. Cranial nerves II through XII grossly intact. 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 Total Self Care Deficit: DCF and case management are involved. Needs placement. Patient Youssef acted and Youssef act was lifted by psychiatrist Ant Guillen Malformation and Intellectual Disability: Chronic. Reported mental capacity of [id number]. Patient is a flight risk, patient had to have sitter ordered Hypertension Amlodipine 10 mg daily Lisinopril 10 mg daily, increase to twice daily Continue monitor blood pressure Sinus tachycardia, mild TSH normal in 2012, recheck today Consider low-dose beta ashley if continues DVT Prophylaxis: Low risk, patient ambulating Discharge Planning Case management, [facility] are actively pursuing discharge planning. Yaniv Simmons May 23, 2016 10:16
[2016-05-23 20:00] VITALS: BP 151/85; PULSE 92; RESP 16; TEMP 98.1; O2SAT 100
--- NOTE | 2016-05-24 07:50 | HHI.PR ---
Subjective Remarks Patient seen and examined today. Patient denies any new complaints. No change in clinical status. Awaiting case management for discharge planning Objective Vitals Vital Signs Date Time Temp Pulse Resp B/P Pulse Ox O2 Delivery O2 Flow Rate FiO2 05/23/16 20:00 98.1 92 16 151/85 100 05/23/16 08:00 97.0 77 18 131/67 100 I/O 05/23/16 05/23/16 05/23/16 05/24/16 05/24/16 05/24/16 07:00 15:00 23:00 07:00 15:00 23:00 Intake Total 240 ml 620 ml 480 ml 480 ml Balance 240 ml 620 ml 480 ml 480 ml Intake Oral 240 ml 620 ml 480 ml 480 ml # Voids 1 1 2 2 # Bowel Movements 0 0 1 Objective Remarks GENERAL: Well-developed, well-nourished, in no acute distress. alert and orientated to person, city, state, president HEENT: Head is normocephalic without any lesions or masses noted. Facial features are symmetric. Eyes: Extraocular muscles are intact. Conjunctivae were clear. NECK: Supple without any masses. Trachea midline no deviation. CARDIAC: Regular rhythm, regular rate. S1/S2 are heard. No murmurs gallops or rubs. LUNGS: Clear to auscultation bilaterally. No wheeze, rhonchi or rales. No use of accessory muscles on inspiration or expiration. ABDOMEN: Soft, nontender. Nondistended. Bowel sounds heard in all 4 quadrants. No organomegaly or masses. Negative rebound, negative guarding EXTREMITIES: No edema, pulses are equal bilaterally. No cyanosis or clubbing NEUROLOGY: Mood and affect appear appropriate. Cranial nerves II through XII grossly intact. 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 Total Self Care Deficit: DCF and case management are involved. Needs placement. Patient Youssef acted and Youssef act was lifted by psychiatrist Ant Walker Malformation and Intellectual Disability: Chronic. Reported mental capacity of [id number]. Patient is a flight risk, patient had to have sitter ordered Hypertension Amlodipine 10 mg daily Lisinopril 10 mg daily, increase to twice daily Continue monitor blood pressure Sinus tachycardia, mild TSH normal in 2012, recheck today Consider low-dose beta ashley if continues DVT Prophylaxis: Low risk, patient ambulating Discharge Planning Case management, [facility] are actively pursuing discharge planning. Yaniv Simmons May 24, 2016 07:50
[2016-05-24 08:00] VITALS: BP 119/72; PULSE 85; RESP 18; TEMP 98.2; O2SAT 99
[2016-05-24] MEDS: LISINOPRIL 10 MG TAB PO SCH ×2 (09:13→20:31)
[2016-05-24 20:00] VITALS: BP 128/77; PULSE 72; PULSE 78; RESP 18; TEMP 96.8; O2SAT 100; O2SAT 94
[2016-05-25 08:00] VITALS: BP 111/67; PULSE 78; RESP 20; TEMP 96.5; O2SAT 96
[2016-05-25] MEDS: LISINOPRIL 10 MG TAB PO SCH ×2 (08:47→20:45)
[2016-05-25 20:00] VITALS: BP 114/73; PULSE 74; RESP 18; TEMP 96.2; O2SAT 98
--- NOTE | 2016-05-25 20:44 | HHI.PR ---
Subjective Remarks No acute complaints. No change in clinical status. Objective Vitals Vital Signs Date Time Temp Pulse Resp B/P Pulse Ox O2 Delivery O2 Flow Rate FiO2 05/25/16 08:00 96.5 78 20 111/67 96 I/O 05/24/16 05/24/16 05/24/16 05/25/16 05/25/16 05/25/16 07:00 15:00 23:00 07:00 15:00 23:00 Intake Total 480 ml 720 ml 240 ml 1000 ml Balance 480 ml 720 ml 240 ml 1000 ml Intake Oral 480 ml 720 ml 240 ml 1000 ml # Voids 2 4 6 5 # Bowel Movements 1 0 0 Objective Remarks GENERAL: Pleasant well-nourished, well-developed patient in no apparent distress. CARDIOVASCULAR: Regular rate and rhythm. RESPIRATORY: No accessory muscle use. Clear to auscultation. Breath sounds equal bilaterally. NEUROLOGICAL: Awake and alert. Motor grossly within normal limits. Normal speech. 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 Total Self Care Deficit: DCF and case management are involved. Youssef act was lifted by psychiatrist Dandy Walker Malformation and Intellectual Disability: Chronic. Reported mental capacity of [id number]. Hypertension Amlodipine 10 mg daily. Lisinopril 10 mg po bid. Monitor BP and adjust regimen as needed. Tachycardia: Patient had been more persistently tachycardic since about Apr 26. No arrhythmia noted. -Thyroid function is normal. -Baseline EKG with sinus rhythm rate 93; one PAC. T-wave inversion in lead 3 and aVF which is likely normal for age. -Labs reviewed with increased red blood cell count and mild prerenal azotemia. Nursing was ordered to push po fluids. -Patient's heart rate improved yesterday and today. DVT Prophylaxis: Low risk, patient ambulating Discharge Planning 05/24/16: CM finally heard from patient's father who agreed to fill out application to try to get patient into a skilled nursing. Jazmín Meadows May 25, 2016 20:44
[2016-05-25] MEDS: LORazepam 0.5 MG TAB PO PRN (22:30)
[2016-05-26 08:00] VITALS: BP 147/87; PULSE 93; RESP 20; TEMP 96.7; O2SAT 100
[2016-05-26] MEDS: LISINOPRIL 10 MG TAB PO SCH ×2 (09:08→21:35)
--- NOTE | 2016-05-26 12:13 | HHI.PR ---
Subjective Remarks No acute complaints. No change in clinical status.. Objective Vitals Vital Signs Date Time Temp Pulse Resp B/P Pulse Ox O2 Delivery O2 Flow Rate FiO2 05/26/16 08:00 96.7 93 20 147/87 100 05/25/16 20:00 96.2 74 18 114/73 98 I/O 05/25/16 05/25/16 05/25/16 05/26/16 05/26/16 05/26/16 07:00 15:00 23:00 07:00 15:00 23:00 Intake Total 240 ml 1000 ml 180 ml 250 ml Balance 240 ml 1000 ml 180 ml 250 ml Intake Oral 240 ml 1000 ml 180 ml 250 ml # Voids 6 5 2 2 # Bowel Movements 0 0 0 0 Objective Remarks GENERAL: Pleasant well-nourished, well-developed patient in no apparent distress. CARDIOVASCULAR: Regular rate and rhythm. RESPIRATORY: No accessory muscle use. Clear to auscultation. Breath sounds equal bilaterally. NEUROLOGICAL: Awake and alert. Motor grossly within normal limits. Normal speech. 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 Total Self Care Deficit: DCF and case management are involved. Youssef act was lifted by psychiatrist Dandy Walker Malformation and Intellectual Disability: Chronic. Reported mental capacity of [id number]. Hypertension Amlodipine 10 mg daily. Lisinopril 10 mg po bid. Monitor BP and adjust regimen as needed. Tachycardia: Patient had been more persistently tachycardic since about Apr 26. No arrhythmia noted. -Thyroid function is normal. -Baseline EKG with sinus rhythm rate 93; one PAC. T-wave inversion in lead 3 and aVF which is likely normal for age. -Labs reviewed with increased red blood cell count and mild prerenal azotemia. Nursing was ordered to push po fluids. -Patient's heart rate improved yesterday but mildly elevated again today. DVT Prophylaxis: Low risk, patient ambulating Discharge Planning 05/24/16: CM finally heard from patient's father who agreed to fill out application to try to get patient into a skilled nursing. Jazmín Meadows May 26, 2016 12:13
[2016-05-26 20:00] VITALS: BP 114/68; PULSE 81; RESP 18; TEMP 98.3; O2SAT 99
[2016-05-27] MEDS: LISINOPRIL 10 MG TAB PO SCH ×2 (08:20→20:35)
[2016-05-27 09:18] VITALS: BP 109/75; PULSE 52; RESP 16; TEMP 98; O2SAT 100
--- NOTE | 2016-05-27 12:29 | HHI.PR ---
Subjective Remarks No acute complaints. No change in clinical status. Objective Vitals Vital Signs Date Time Temp Pulse Resp B/P Pulse Ox O2 Delivery O2 Flow Rate FiO2 05/27/16 09:18 98.0 52 16 109/75 100 05/26/16 20:00 98.3 81 18 114/68 99 I/O 05/26/16 05/26/16 05/26/16 05/27/16 05/27/16 05/27/16 07:00 15:00 23:00 07:00 15:00 23:00 Intake Total 250 ml 810 ml 600 ml 480 ml Balance 250 ml 810 ml 600 ml 480 ml Intake Oral 250 ml 810 ml 600 ml 480 ml # Voids 2 3 4 2 # Bowel Movements 0 1 1 0 Objective Remarks GENERAL: Pleasant well-nourished, well-developed patient in no apparent distress. CARDIOVASCULAR: Tachycardic rate and regular rhythm. RESPIRATORY: No accessory muscle use. Clear to auscultation. Breath sounds equal bilaterally. NEUROLOGICAL: Awake and alert. Motor grossly within normal limits. Normal speech. Ambulates ad todd. 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 Total Self Care Deficit: DCF and case management are involved. Youssef act was lifted by psychiatrist Dandy Walker Malformation and Intellectual Disability: Chronic. Reported mental capacity of [id number]. Hypertension Amlodipine 10 mg daily. Lisinopril 10 mg po bid. Monitor BP and adjust regimen as needed. Tachycardia: Patient had been more persistently tachycardic since about Apr 26. No arrhythmia noted. -Thyroid function is normal. -Baseline EKG with sinus rhythm rate 93; one PAC. T-wave inversion in lead 3 and aVF which is likely normal for age. -Labs reviewed with increased red blood cell count and mild prerenal azotemia. Nursing was ordered to push po fluids. -Patient's heart rate has improved recently. DVT Prophylaxis: Low risk, patient ambulating Discharge Planning 05/24/16: CM finally heard from patient's father who agreed to fill out application to try to get patient into a [facility]. Jazmín Meadows May 27, 2016 12:29
[2016-05-27 20:00] VITALS: BP 140/87; PULSE 78; RESP 18; TEMP 97.5; O2SAT 99
[2016-05-28 09:00] VITALS: BP 139/87; PULSE 55; RESP 14; TEMP 97.4; O2SAT 100
[2016-05-28] MEDS: LISINOPRIL 10 MG TAB PO SCH ×2 (09:16→20:56)
[2016-05-28 09:18] VITALS: PULSE 68
--- NOTE | 2016-05-28 09:25 | HHI.PR ---
Subjective Remarks No acute complaints. No change in clinical status. Objective Vitals Vital Signs Date Time Temp Pulse Resp B/P Pulse Ox O2 Delivery O2 Flow Rate FiO2 05/28/16 09:18 68 05/28/16 09:00 97.4 55 14 139/87 100 05/27/16 20:00 97.5 78 18 140/87 99 I/O 05/27/16 05/27/16 05/27/16 05/28/16 05/28/16 05/28/16 06:59 14:59 22:59 06:59 14:59 22:59 Intake Total 480 ml 1380 ml 220 ml Balance 480 ml 1380 ml 220 ml Intake Oral 480 ml 1380 ml 220 ml # Voids 2 6 2 # Bowel Movements 0 1 0 Objective Remarks GENERAL: Pleasant well-nourished, well-developed patient in no apparent distress. CARDIOVASCULAR: Regular rate and rhythm. RESPIRATORY: No accessory muscle use. Clear to auscultation. Breath sounds equal bilaterally. NEUROLOGICAL: Awake and alert. Motor grossly within normal limits. Normal speech. 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 Total Self Care Deficit: DCF and case management are involved. Youssef act was lifted by psychiatrist Dandy Walker Malformation and Intellectual Disability: Chronic. Reported mental capacity of [id number]. Hypertension Amlodipine 10 mg daily. Lisinopril 10 mg po bid. Monitor BP and adjust regimen as needed. Tachycardia: Patient had been more persistently tachycardic since about Apr 26. No arrhythmia noted. -Thyroid function is normal. -Baseline EKG with sinus rhythm rate 93; one PAC. T-wave inversion in lead 3 and aVF which is likely normal for age. -Labs reviewed with increased red blood cell count and mild prerenal azotemia. Nursing was ordered to push po fluids. -Patient's heart rate has improved recently. DVT Prophylaxis: Low risk, patient ambulating Discharge Planning 05/24/16: CM finally heard from patient's father who agreed to fill out application to try to get patient into a long term. Jazmín Meadows May 28, 2016 09:24
[2016-05-28 20:00] VITALS: BP 115/75; PULSE 90; RESP 16; TEMP 98.8; O2SAT 97
[2016-05-29 08:00] VITALS: BP 127/82; PULSE 75; RESP 16; TEMP 98.2; O2SAT 97
[2016-05-29] MEDS: LISINOPRIL 10 MG TAB PO SCH ×2 (09:38→20:47)
--- NOTE | 2016-05-29 09:38 | HHI.PR ---
Subjective Remarks No acute complaints. No change in clinical status. Objective Vitals Vital Signs Date Time Temp Pulse Resp B/P Pulse Ox O2 Delivery O2 Flow Rate FiO2 05/28/16 20:00 98.8 90 16 115/75 97 I/O 05/28/16 05/28/16 05/28/16 05/29/16 05/29/16 05/29/16 07:00 15:00 23:00 07:00 15:00 23:00 Intake Total 220 ml 1200 ml 100 ml Balance 220 ml 1200 ml 100 ml Intake Oral 220 ml 1200 ml 100 ml # Voids 2 6 2 # Bowel Movements 0 0 Objective Remarks GENERAL: Pleasant well-nourished, well-developed patient in no apparent distress sitting in bed. CARDIOVASCULAR: Regular rate and rhythm. RESPIRATORY: No accessory muscle use. Clear to auscultation. Breath sounds equal bilaterally. NEUROLOGICAL: Awake and alert. Motor grossly within normal limits. Normal speech. Ambulates without issue. 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 Total Self Care Deficit: DCF and case management are involved. Youssef act was lifted by psychiatrist Dandy Walker Malformation and Intellectual Disability: Chronic. Reported mental capacity of [id number]. Hypertension Amlodipine 10 mg daily. Lisinopril 10 mg po bid. Monitor BP and adjust regimen as needed. Tachycardia: Improved. Patient had been more persistently tachycardic since about Apr 26. No arrhythmia noted. Patient's heart rate has improved recently. -Thyroid function is normal. -Baseline EKG with sinus rhythm rate 93; one PAC. T-wave inversion in lead 3 and aVF which is likely normal for age. -Labs reviewed with increased red blood cell count and mild prerenal azotemia. Nursing was ordered to push po fluids. DVT Prophylaxis: Low risk, patient ambulating Discharge Planning 05/24/16: CM finally heard from patient's father who agreed to fill out application to try to get patient into a snf. Jazmín Meadows May 29, 2016 09:38
[2016-05-29 23:15] VITALS: BP 128/95; PULSE 97; RESP 18; TEMP 98.2; O2SAT 98
[2016-05-30 08:00] VITALS: BP 144/91; PULSE 64; RESP 20; TEMP 98.8; O2SAT 99
[2016-05-30] MEDS: LISINOPRIL 10 MG TAB PO SCH ×2 (08:30→20:25)
--- NOTE | 2016-05-30 08:31 | HHI.PR ---
Subjective Remarks No acute complaints. No change in clinical status. Objective Vitals Vital Signs Date Time Temp Pulse Resp B/P Pulse Ox O2 Delivery O2 Flow Rate FiO2 05/30/16 08:00 98.8 64 20 144/91 99 05/29/16 23:15 98.2 97 18 128/95 98 I/O 05/29/16 05/29/16 05/29/16 05/30/16 05/30/16 05/30/16 07:00 15:00 23:00 07:00 15:00 23:00 Intake Total 100 ml 720 ml 660 ml Balance 100 ml 720 ml 660 ml Intake Oral 100 ml 720 ml 660 ml # Voids 2 3 11 # Bowel Movements 0 1 2 Objective Remarks GENERAL: Pleasant well-nourished, well-developed patient in no apparent distress. CARDIOVASCULAR: Regular rate and rhythm. RESPIRATORY: No accessory muscle use. Clear to auscultation. Breath sounds equal bilaterally. GASTROINTESTINAL: Abdomen soft, nontender, nondistended. NEUROLOGICAL: Awake and alert. Motor grossly within normal limits. Normal speech. 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 Total Self Care Deficit: DCF and case management are involved. Youssef act was lifted by psychiatrist Dandy Walker Malformation and Intellectual Disability: Chronic. Reported mental capacity of [id number]. Hypertension: BP 144/91 this morning prior to medication. Amlodipine 10 mg daily. Lisinopril 10 mg po bid. Monitor BP and adjust regimen as needed. Tachycardia: Improved. Patient had been more persistently tachycardic since about Apr 26. No arrhythmia noted. Patient's heart rate has improved recently. -Thyroid function is normal. -Baseline EKG with sinus rhythm rate 93; one PAC. T-wave inversion in lead 3 and aVF which is likely normal for age. -Labs reviewed with increased red blood cell count and mild prerenal azotemia. Nursing was ordered to push po fluids. DVT Prophylaxis: Low risk, patient ambulating Discharge Planning 05/24/16: CM finally heard from patient's father who agreed to fill out application to try to get patient into a [facility]. Jazmín Meadows May 30, 2016 08:30
[2016-05-30 20:00] VITALS: BP 153/95; PULSE 92; RESP 16; TEMP 98.9; O2SAT 98
[2016-05-31 08:00] VITALS: BP 107/80; PULSE 93; RESP 18; TEMP 98.2; O2SAT 95
[2016-05-31] MEDS: LISINOPRIL 10 MG TAB PO SCH ×2 (08:50→20:29)
--- NOTE | 2016-05-31 13:14 | HHI.PR ---
Subjective Remarks No acute complaints. No change in clinical status. Objective Vitals Vital Signs Date Time Temp Pulse Resp B/P Pulse Ox O2 Delivery O2 Flow Rate FiO2 05/31/16 08:00 98.2 93 18 107/80 95 05/30/16 20:00 98.9 92 16 153/95 98 I/O 05/30/16 05/30/16 05/30/16 05/31/16 05/31/16 05/31/16 07:00 15:00 23:00 07:00 15:00 23:00 Intake Total 660 ml 1080 ml Balance 660 ml 1080 ml Intake Oral 660 ml 1080 ml # Voids 11 3 6 # Bowel Movements 2 1 Objective Remarks GENERAL: Pleasant well-nourished, well-developed patient in no apparent distress. CARDIOVASCULAR: Tachycardic rate with regular rhythm. Questionable murmur over aortic region. RESPIRATORY: No accessory muscle use. Clear to auscultation. Breath sounds equal bilaterally. NEUROLOGICAL: Awake and alert. Motor grossly within normal limits. Normal speech. 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 Total Self Care Deficit: DCF and case management are involved. Youssef act was lifted by psychiatrist Dandy Walker Malformation and Intellectual Disability: Chronic. Reported mental capacity of [id number]. Hypertension: BP elevated yesterday but good this morning. Amlodipine 10 mg daily. Lisinopril 10 mg po bid. Monitor BP and adjust regimen as needed. Tachycardia: Improved. Patient had been more persistently tachycardic since about Apr 26. No arrhythmia noted. Patient's heart rate has improved recently, intermittently tachycardic. -Thyroid function is normal. -Baseline EKG with sinus rhythm rate 93; one PAC. T-wave inversion in lead 3 and aVF which is likely normal for age. -Labs reviewed with increased red blood cell count and mild prerenal azotemia. Nursing was ordered to push po fluids. -05/31: Questionable murmur on exam today, but patient has no acute issues. DVT Prophylaxis: Low risk, patient ambulating Discharge Planning 05/24/16: CM finally heard from patient's father who agreed to fill out application to try to get patient into a residential. Jazmín Meadows May 31, 2016 13:14
[2016-05-31 20:00] VITALS: BP 126/66; PULSE 71; RESP 16; TEMP 98.1; O2SAT 99
[2016-06-01 08:00] VITALS: BP 143/79; PULSE 88; RESP 18; TEMP 97.8; O2SAT 94
[2016-06-01] MEDS: LISINOPRIL 10 MG TAB PO SCH ×2 (08:44→21:16)
--- NOTE | 2016-06-01 10:18 | HHI.PR ---
Subjective Remarks Patient seen and examined today. Patient denies any new complaints. No change in clinical status. Awaiting case management for discharge planning Objective Vitals Vital Signs Date Time Temp Pulse Resp B/P Pulse Ox O2 Delivery O2 Flow Rate FiO2 06/01/16 08:00 97.8 88 18 143/79 94 05/31/16 20:00 98.1 71 16 126/66 99 I/O 05/31/16 05/31/16 05/31/16 06/01/16 06/01/16 06/01/16 07:00 15:00 23:00 07:00 15:00 23:00 Intake Total 480 ml 480 ml 220 ml Balance 480 ml 480 ml 220 ml Intake Oral 480 ml 480 ml 220 ml # Voids 6 2 2 # Bowel Movements 1 1 0 0 Objective Remarks GENERAL: Well-developed, well-nourished, in no acute distress. alert and orientated to person, city, state, president HEENT: Head is normocephalic without any lesions or masses noted. Facial features are symmetric. Eyes: Extraocular muscles are intact. Conjunctivae were clear. NECK: Supple without any masses. Trachea midline no deviation. CARDIAC: Regular rhythm, regular rate. S1/S2 are heard. No murmurs gallops or rubs. LUNGS: Clear to auscultation bilaterally. No wheeze, rhonchi or rales. No use of accessory muscles on inspiration or expiration. ABDOMEN: Soft, nontender. Nondistended. Bowel sounds heard in all 4 quadrants. No organomegaly or masses. Negative rebound, negative guarding EXTREMITIES: No edema, pulses are equal bilaterally. No cyanosis or clubbing NEUROLOGY: Mood and affect appear appropriate. Cranial nerves II through XII grossly intact. 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 Total Self Care Deficit: DCF and case management are involved. Needs placement. Patient Youssef acted and Youssef act was lifted by psychiatrist Ant Guillen Malformation and Intellectual Disability: Chronic. Reported mental capacity of [id number]. Patient is a flight risk, patient had to have sitter ordered Hypertension Amlodipine 10 mg daily Lisinopril 10 mg twice daily Continue monitor blood pressure Add Lopressor 12.5 mg twice daily Sinus tachycardia, mild TSH normal 0.91 Consider low-dose beta ashley if continues DVT Prophylaxis: Low risk, patient ambulating Discharge Planning Case management, [facility] are actively pursuing discharge planning. Yaniv Simmons Jun 01, 2016 10:18
[2016-06-01] MEDS: METOPROLOL TARTRATE 25 MG TAB PO SCH ×2 (12:10→21:16)
[2016-06-01 20:00] VITALS: BP 126/98; PULSE 60; RESP 18; TEMP 97.7; O2SAT 98
[2016-06-02] MEDS: LISINOPRIL 10 MG TAB PO SCH ×2 (09:26→20:39)
[2016-06-02] MEDS: METOPROLOL TARTRATE 25 MG TAB PO SCH ×2 (09:27→20:39)
[2016-06-02 10:15] VITALS: BP 140/78; PULSE 88; RESP 18; TEMP 96.4; O2SAT 88
--- NOTE | 2016-06-02 13:53 | HHI.PR ---
Subjective Remarks Patient seen and examined today. Patient denies any new complaints. No change in clinical status. Awaiting case management for discharge planning Objective Vitals Vital Signs Date Time Temp Pulse Resp B/P Pulse Ox O2 Delivery O2 Flow Rate FiO2 06/02/16 10:15 96.4 88 18 140/78 88 06/01/16 20:00 97.7 60 18 126/98 98 I/O 06/01/16 06/01/16 06/01/16 06/02/16 06/02/16 06/02/16 07:00 15:00 23:00 07:00 15:00 23:00 Intake Total 220 ml 480 ml 480 ml 240 ml Balance 220 ml 480 ml 480 ml 240 ml Intake Oral 220 ml 480 ml 480 ml 240 ml # Voids 2 3 2 1 # Bowel Movements 0 0 0 Objective Remarks GENERAL: Well-developed, well-nourished, in no acute distress. alert and orientated to person, city, state, president HEENT: Head is normocephalic without any lesions or masses noted. Facial features are symmetric. Eyes: Extraocular muscles are intact. Conjunctivae were clear. NECK: Supple without any masses. Trachea midline no deviation. CARDIAC: Regular rhythm, regular rate. S1/S2 are heard. No murmurs gallops or rubs. LUNGS: Clear to auscultation bilaterally. No wheeze, rhonchi or rales. No use of accessory muscles on inspiration or expiration. ABDOMEN: Soft, nontender. Nondistended. Bowel sounds heard in all 4 quadrants. No organomegaly or masses. Negative rebound, negative guarding EXTREMITIES: No edema, pulses are equal bilaterally. No cyanosis or clubbing NEUROLOGY: Mood and affect appear appropriate. Cranial nerves II through XII grossly intact. 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 Total Self Care Deficit: DCF and case management are involved. Needs placement. Patient Youssef acted and Youssef act was lifted by psychiatrist Ant Walker Malformation and Intellectual Disability: Chronic. Reported mental capacity of [id number]. Patient is a flight risk, patient had to have sitter ordered Hypertension Amlodipine 10 mg daily Lisinopril 10 mg twice daily Continue monitor blood pressure Lopressor 12.5 mg twice daily Sinus tachycardia, improved with addition of Lopressor TSH normal 0.91 Consider low-dose beta ashley if continues DVT Prophylaxis: Low risk, patient ambulating Discharge Planning Case management, [facility] are actively pursuing discharge planning. Yaniv Simmons Jun 02, 2016 13:53
[2016-06-02 20:00] VITALS: BP 157/144; PULSE 86; RESP 24; TEMP 98; O2SAT 100
[2016-06-02 22:00] VITALS: BP 124/72
[2016-06-03 08:00] VITALS: BP 117/71; PULSE 94; RESP 22; TEMP 95.9; O2SAT 95
[2016-06-03] MEDS: LISINOPRIL 10 MG TAB PO SCH ×2 (08:33→20:21)
[2016-06-03] MEDS: METOPROLOL TARTRATE 25 MG TAB PO SCH ×2 (08:33→20:20)
--- NOTE | 2016-06-03 10:23 | HHI.PR ---
Subjective Remarks Patient seen and examined today. Patient denies any new complaints. No change in clinical status. This record was reviewed, no acute events overnight, no change in present treatment plan. Objective Vitals Vital Signs Date Time Temp Pulse Resp B/P Pulse Ox O2 Delivery O2 Flow Rate FiO2 06/03/16 08:00 95.9 94 22 117/71 95 06/02/16 22:00 124/72 06/02/16 20:00 98.0 86 24 157/144 100 I/O 06/02/16 06/02/16 06/02/16 06/03/16 06/03/16 06/03/16 07:00 15:00 23:00 07:00 15:00 23:00 Intake Total 240 ml 720 ml Balance 240 ml 720 ml Intake Oral 240 ml 720 ml # Voids 1 3 # Bowel Movements 0 0 Objective Remarks GENERAL: Well-developed, well-nourished, in no acute distress. alert and orientated to person, city, state, president HEENT: Head is normocephalic without any lesions or masses noted. Facial features are symmetric. Eyes: Extraocular muscles are intact. Conjunctivae were clear. NECK: Supple without any masses. Trachea midline no deviation. CARDIAC: Regular rhythm, regular rate. S1/S2 are heard. No murmurs gallops or rubs. LUNGS: Clear to auscultation bilaterally. No wheeze, rhonchi or rales. No use of accessory muscles on inspiration or expiration. ABDOMEN: Soft, nontender. Nondistended. Bowel sounds heard in all 4 quadrants. No organomegaly or masses. Negative rebound, negative guarding EXTREMITIES: No edema, pulses are equal bilaterally. No cyanosis or clubbing NEUROLOGY: Mood and affect appear appropriate. Cranial nerves II through XII grossly intact. 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 Total Self Care Deficit: DCF and case management are involved. Needs placement. Patient Youssef acted and Youssef act was lifted by psychiatrist Ant Walker Malformation and Intellectual Disability: Chronic. Reported mental capacity of [id number]. Patient is a flight risk, patient had to have sitter ordered Hypertension Amlodipine 10 mg daily Lisinopril 10 mg twice daily Continue monitor blood pressure Lopressor 12.5 mg twice daily Sinus tachycardia, improved with addition of Lopressor TSH normal 0.91 DVT Prophylaxis: Low risk, patient ambulating Discharge Planning Discharge planning per case management Yaniv Simmons Jun 03, 2016 10:23
[2016-06-03 20:00] VITALS: BP 112/72; PULSE 77; RESP 16; TEMP 97.6; O2SAT 98
[2016-06-04 08:00] VITALS: BP 140/87; PULSE 79; RESP 20; TEMP 98.1; O2SAT 99
[2016-06-04] MEDS: LISINOPRIL 10 MG TAB PO SCH ×2 (08:55→20:05)
[2016-06-04] MEDS: METOPROLOL TARTRATE 25 MG TAB PO SCH ×2 (08:55→20:05)
--- NOTE | 2016-06-04 10:17 | HHI.PR ---
Subjective Remarks Patient seen and examined today. Patient denies any new complaints. No change in clinical status. This record was reviewed, no acute events overnight, present treatment plan is unchanged. Awaiting case management for discharge planning Objective Vitals Vital Signs Date Time Temp Pulse Resp B/P Pulse Ox O2 Delivery O2 Flow Rate FiO2 06/04/16 08:00 98.1 79 20 140/87 99 06/03/16 20:00 97.6 77 16 112/72 98 I/O 06/03/16 06/03/16 06/03/16 06/04/16 06/04/16 06/04/16 07:00 15:00 23:00 07:00 15:00 23:00 Intake Total 900 ml 320 ml 220 ml Balance 900 ml 320 ml 220 ml Intake Oral 900 ml 320 ml 220 ml # Voids 6 2 1 # Bowel Movements 1 0 0 Objective Remarks GENERAL: Well-developed, well-nourished, in no acute distress. alert and orientated to person, city, state, president HEENT: Head is normocephalic without any lesions or masses noted. Facial features are symmetric. Eyes: Extraocular muscles are intact. Conjunctivae were clear. NECK: Supple without any masses. Trachea midline no deviation. CARDIAC: Regular rhythm, regular rate. S1/S2 are heard. No murmurs gallops or rubs. LUNGS: Clear to auscultation bilaterally. No wheeze, rhonchi or rales. No use of accessory muscles on inspiration or expiration. ABDOMEN: Soft, nontender. Nondistended. Bowel sounds heard in all 4 quadrants. No organomegaly or masses. Negative rebound, negative guarding EXTREMITIES: No edema, pulses are equal bilaterally. No cyanosis or clubbing NEUROLOGY: Mood and affect appear appropriate. Cranial nerves II through XII grossly intact. 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 Total Self Care Deficit: DCF and case management are involved. Needs placement. Patient Mikael acted and Youssef act was lifted by psychiatrist Danyung Walker Malformation and Intellectual Disability: Chronic. Reported mental capacity of [id number]. Patient is a flight risk, patient had to have sitter ordered Hypertension Amlodipine 10 mg daily Lisinopril 10 mg twice daily Continue monitor blood pressure Lopressor 12.5 mg twice daily Sinus tachycardia, improved with addition of Lopressor TSH normal 0.91 DVT Prophylaxis: Low risk, patient ambulating Discharge Planning Discharge planning per case management Yaniv Simmons Jun 04, 2016 10:17
[2016-06-04 22:02] VITALS: BP 133/84; PULSE 74; RESP 18; TEMP 97.1; O2SAT 98
[2016-06-05 08:00] VITALS: BP 140/75; PULSE 58; RESP 16; TEMP 98.1; O2SAT 93
[2016-06-05] MEDS: METOPROLOL TARTRATE 25 MG TAB PO SCH ×2 (08:13→20:57)
[2016-06-05] MEDS: LISINOPRIL 10 MG TAB PO SCH ×2 (08:13→20:57)
--- NOTE | 2016-06-05 10:30 | HHI.PR ---
Subjective Remarks Patient seen and examined today. Patient denies any new complaints. No change in clinical status. This record was reviewed, no acute events overnight, no change present treatment plan. Awaiting case management for discharge planning Objective Vitals Vital Signs Date Time Temp Pulse Resp B/P Pulse Ox O2 Delivery O2 Flow Rate FiO2 06/05/16 08:00 98.1 58 16 140/75 93 06/04/16 22:02 97.1 74 18 133/84 98 I/O 06/04/16 06/04/16 06/04/16 06/05/16 06/05/16 06/05/16 07:00 15:00 23:00 07:00 15:00 23:00 Intake Total 220 ml 550 ml Balance 220 ml 550 ml Intake Oral 220 ml 550 ml # Voids 1 3 4 # Bowel Movements 0 0 Objective Remarks GENERAL: Well-developed, well-nourished, in no acute distress. alert and orientated to person, city, state, president HEENT: Head is normocephalic without any lesions or masses noted. Facial features are symmetric. Eyes: Extraocular muscles are intact. Conjunctivae were clear. NECK: Supple without any masses. Trachea midline no deviation. CARDIAC: Regular rhythm, regular rate. S1/S2 are heard. No murmurs gallops or rubs. LUNGS: Clear to auscultation bilaterally. No wheeze, rhonchi or rales. No use of accessory muscles on inspiration or expiration. ABDOMEN: Soft, nontender. Nondistended. Bowel sounds heard in all 4 quadrants. No organomegaly or masses. Negative rebound, negative guarding EXTREMITIES: No edema, pulses are equal bilaterally. No cyanosis or clubbing NEUROLOGY: Mood and affect appear appropriate. Cranial nerves II through XII grossly intact. 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 Total Self Care Deficit: DCF and case management are involved. Needs placement. Patient Youssef acted and Youssef act was lifted by psychiatrist Ant Guillen Malformation and Intellectual Disability: Chronic. Reported mental capacity of [id number]. Patient is a flight risk, patient had to have sitter ordered Hypertension Amlodipine 10 mg daily Lisinopril 10 mg twice daily Continue monitor blood pressure Lopressor 12.5 mg twice daily Sinus tachycardia, improved with addition of Lopressor TSH normal 0.91 DVT Prophylaxis: Low risk, patient ambulating Discharge Planning Discharge planning per case management Yaniv Simmons Jun 05, 2016 10:30
[2016-06-05 20:00] VITALS: BP 136/79; PULSE 76; RESP 16; TEMP 97; O2SAT 100
[2016-06-06 08:00] VITALS: BP 121/62; PULSE 54; RESP 18; TEMP 97.7; O2SAT 99
[2016-06-06] MEDS: METOPROLOL TARTRATE 25 MG TAB PO SCH ×2 (08:55→20:17)
[2016-06-06] MEDS: LISINOPRIL 10 MG TAB PO SCH ×2 (08:55→20:17)
--- NOTE | 2016-06-06 10:52 | HHI.PR ---
Subjective Remarks This record was reviewed, no acute events overnight, no change in present treatment plan. Patient seen and examined today. Patient denies any new complaints. Awaiting case management for discharge planning Objective Vitals Vital Signs Date Time Temp Pulse Resp B/P Pulse Ox O2 Delivery O2 Flow Rate FiO2 06/06/16 08:00 97.7 54 18 121/62 99 06/05/16 20:00 97.0 76 16 136/79 100 I/O 06/05/16 06/05/16 06/05/16 06/06/16 06/06/16 06/06/16 07:00 15:00 23:00 07:00 15:00 23:00 Intake Total 1200 ml 480 ml 120 ml Balance 1200 ml 480 ml 120 ml Intake Oral 1200 ml 480 ml 120 ml # Voids 4 2 3 1 # Bowel Movements 0 0 0 0 Objective Remarks GENERAL: Well-developed, well-nourished, in no acute distress. alert and orientated to person, city, state, president HEENT: Head is normocephalic without any lesions or masses noted. Facial features are symmetric. Eyes: Extraocular muscles are intact. Conjunctivae were clear. NECK: Supple without any masses. Trachea midline no deviation. CARDIAC: Regular rhythm, regular rate. S1/S2 are heard. No murmurs gallops or rubs. LUNGS: Clear to auscultation bilaterally. No wheeze, rhonchi or rales. No use of accessory muscles on inspiration or expiration. ABDOMEN: Soft, nontender. Nondistended. Bowel sounds heard in all 4 quadrants. No organomegaly or masses. Negative rebound, negative guarding EXTREMITIES: No edema, pulses are equal bilaterally. No cyanosis or clubbing NEUROLOGY: Mood and affect appear appropriate. Cranial nerves II through XII grossly intact. 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 Total Self Care Deficit: DCF and case management are involved. Needs placement. Patient Yosusef acted and Youssef act was lifted by psychiatrist Ant Walker Malformation and Intellectual Disability: Chronic. Reported mental capacity of [id number]. Patient is a flight risk, patient had to have sitter ordered Hypertension Amlodipine 10 mg daily Lisinopril 10 mg twice daily Continue monitor blood pressure Lopressor 12.5 mg twice daily Sinus tachycardia, improved with addition of Lopressor TSH normal 0.91 DVT Prophylaxis: Low risk, patient ambulating Discharge Planning Discharge planning per case management Yaniv Simmons Jun 06, 2016 10:51
[2016-06-06 20:00] VITALS: BP 121/66; PULSE 61; RESP 20; TEMP 98.2; O2SAT 98
[2016-06-06] MEDS: LORazepam 0.5 MG TAB PO PRN (20:17)
[2016-06-07] MEDS: LISINOPRIL 10 MG TAB PO SCH ×2 (07:53→21:47)
[2016-06-07] MEDS: METOPROLOL TARTRATE 25 MG TAB PO SCH ×2 (07:53→21:45)
[2016-06-07 08:00] VITALS: BP 119/85; PULSE 101; RESP 16; TEMP 96.2; O2SAT 99
--- NOTE | 2016-06-07 11:21 | HHI.PR ---
Subjective Remarks Patient seen and examined today. No change in clinical status. Patient denies any new complaints Objective Vitals Vital Signs Date Time Temp Pulse Resp B/P Pulse Ox O2 Delivery O2 Flow Rate FiO2 06/07/16 08:00 96.2 101 16 119/85 99 06/06/16 20:00 98.2 61 20 121/66 98 I/O 06/06/16 06/06/16 06/06/16 06/07/16 06/07/16 06/07/16 07:00 15:00 23:00 07:00 15:00 23:00 Intake Total 120 ml 480 ml 240 ml Balance 120 ml 480 ml 240 ml Intake Oral 120 ml 480 ml 240 ml # Voids 1 5 1 # Bowel Movements 0 0 0 Objective Remarks GENERAL: Well-developed, well-nourished, in no acute distress. alert and orientated to person, city, state, president HEENT: Head is normocephalic without any lesions or masses noted. Facial features are symmetric. Eyes: Extraocular muscles are intact. Conjunctivae were clear. NECK: Supple without any masses. Trachea midline no deviation. CARDIAC: Regular rhythm, regular rate. S1/S2 are heard. No murmurs gallops or rubs. LUNGS: Clear to auscultation bilaterally. No wheeze, rhonchi or rales. No use of accessory muscles on inspiration or expiration. ABDOMEN: Soft, nontender. Nondistended. Bowel sounds heard in all 4 quadrants. No organomegaly or masses. Negative rebound, negative guarding EXTREMITIES: No edema, pulses are equal bilaterally. No cyanosis or clubbing NEUROLOGY: Mood and affect appear appropriate. Cranial nerves II through XII grossly intact. 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 Total Self Care Deficit: DCF and case management are involved. Needs placement. Patient Youssef acted and Youssef act was lifted by psychiatrist Ant Guillen Malformation and Intellectual Disability: Chronic. Reported mental capacity of [id number]. Patient is a flight risk, patient had to have sitter ordered Hypertension Amlodipine 10 mg daily Lisinopril 10 mg twice daily Continue monitor blood pressure Lopressor 12.5 mg twice daily Sinus tachycardia, improved with addition of Lopressor TSH normal 0.91 DVT Prophylaxis: Low risk, patient ambulating Discharge Planning Discharge planning per case management Yaniv Simmons Jun 07, 2016 11:21
[2016-06-07 20:00] VITALS: BP 138/80; PULSE 75; RESP 18; TEMP 97.8; O2SAT 99
[2016-06-08 08:00] VITALS: BP 126/74; PULSE 54; RESP 20; TEMP 97.3; O2SAT 100
[2016-06-08] MEDS: LISINOPRIL 10 MG TAB PO SCH ×2 (09:40→20:34)
[2016-06-08] MEDS: METOPROLOL TARTRATE 25 MG TAB PO SCH ×2 (09:40→20:34)
--- NOTE | 2016-06-08 12:26 | HHI.PR ---
Subjective Remarks No acute complaints. No change in clinical status. Objective Vitals Vital Signs Date Time Temp Pulse Resp B/P Pulse Ox O2 Delivery O2 Flow Rate FiO2 06/08/16 08:00 97.3 54 20 126/74 100 06/07/16 20:00 97.8 75 18 138/80 99 I/O 06/07/16 06/07/16 06/07/16 06/08/16 06/08/16 06/08/16 07:00 15:00 23:00 07:00 15:00 23:00 Intake Total 240 ml 480 ml 440 ml 420 ml Balance 240 ml 480 ml 440 ml 420 ml Intake Oral 240 ml 480 ml 440 ml 420 ml # Voids 1 4 1 2 # Bowel Movements 0 0 0 Objective Remarks GENERAL: Pleasant well-nourished, well-developed patient in no apparent distress. CARDIOVASCULAR: Regular rate and rhythm. RESPIRATORY: No accessory muscle use. Clear to auscultation. Breath sounds equal bilaterally. NEUROLOGICAL: Awake and alert. Motor grossly within normal limits. Normal speech. 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 Total Self Care Deficit: DCF and case management are involved. Youssef act was lifted by psychiatrist Dandy Walker Malformation and Intellectual Disability: Chronic. Reported mental capacity of [id number]. Hypertension: BP elevated yesterday but good this morning. Amlodipine 10 mg daily. Lisinopril 10 mg po bid. Monitor BP and adjust regimen as needed. Tachycardia: Improved. Patient had been more persistently tachycardic since about Apr 26. No arrhythmia noted. Patient's heart rate has improved recently, intermittently tachycardic. Bradycardic this morning. -Thyroid function is normal. -Baseline EKG with sinus rhythm rate 93; one PAC. T-wave inversion in lead 3 and aVF which is likely normal for age. -Labs reviewed with increased red blood cell count and mild prerenal azotemia. Nursing was ordered to push po fluids. DVT Prophylaxis: Low risk, patient ambulating Discharge Planning CM finally heard from patient's father who agreed to fill out application to try to get patient into a correction. Jazmín Meadows Jun 08, 2016 12:25
[2016-06-08 20:06] VITALS: BP 124/78; PULSE 74; RESP 16; TEMP 98; O2SAT 97
[2016-06-09 07:26] VITALS: BP 134/81; PULSE 61; RESP 16; TEMP 95; O2SAT 99
[2016-06-09] MEDS: LISINOPRIL 10 MG TAB PO SCH ×2 (07:30→20:09)
[2016-06-09] MEDS: METOPROLOL TARTRATE 25 MG TAB PO SCH ×2 (07:30→20:10)
[2016-06-09 08:54] VITALS: BP 134/81; PULSE 61; RESP 16; TEMP 95; O2SAT 99
--- NOTE | 2016-06-09 12:59 | HHI.PR ---
Subjective Remarks No acute complaints. No change in clinical status. Objective Vitals Vital Signs Date Time Temp Pulse Resp B/P Pulse Ox O2 Delivery O2 Flow Rate FiO2 06/09/16 08:54 95.0 61 16 134/81 99 06/09/16 07:26 95.0 61 16 134/81 99 06/08/16 20:06 98.0 74 16 124/78 97 I/O 06/08/16 06/08/16 06/08/16 06/09/16 06/09/16 06/09/16 07:00 15:00 23:00 07:00 15:00 23:00 Intake Total 420 ml 900 ml 420 ml Balance 420 ml 900 ml 420 ml Intake Oral 420 ml 900 ml 420 ml # Voids 2 5 2 # Bowel Movements 0 0 0 Objective Remarks GENERAL: Pleasant well-nourished, well-developed patient in no apparent distress. CARDIOVASCULAR: Regular rate and rhythm. RESPIRATORY: No accessory muscle use. Clear to auscultation. Breath sounds equal bilaterally. NEUROLOGICAL: Awake and alert. Motor grossly within normal limits. Normal speech. 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 Total Self Care Deficit: DCF and case management are involved. Youssef act was lifted by psychiatrist Dandy Walker Malformation and Intellectual Disability: Chronic. Reported mental capacity of [id number]. Hypertension: Amlodipine 10 mg daily. Lisinopril 10 mg po bid. Monitor BP and adjust regimen as needed. Tachycardia: Improved. Patient had been more persistently tachycardic since about Apr 26. No arrhythmia noted. Patient's heart rate has improved recently, intermittently tachycardic. -Thyroid function is normal. -Baseline EKG with sinus rhythm rate 93; one PAC. T-wave inversion in lead 3 and aVF which is likely normal for age. -Labs reviewed with increased red blood cell count and mild prerenal azotemia. Nursing was ordered to push po fluids. DVT Prophylaxis: Low risk, patient ambulating Discharge Planning CM finally heard from patient's father who agreed to fill out application to try to get patient into a long-term. Jazmín Meadows Jun 09, 2016 12:59
[2016-06-09 20:00] VITALS: BP 118/74; PULSE 67; RESP 16; TEMP 97; TEMP 97.1; O2SAT 99
[2016-06-10] MEDS: LISINOPRIL 10 MG TAB PO SCH ×2 (08:02→20:39)
[2016-06-10] MEDS: METOPROLOL TARTRATE 25 MG TAB PO SCH ×2 (08:02→20:39)
[2016-06-10 08:45] VITALS: BP 111/66; PULSE 51; RESP 16; TEMP 98.2; O2SAT 99
--- NOTE | 2016-06-10 13:07 | HHI.PR ---
Subjective Remarks No acute complaints. No change in clinical status. Objective Vitals Vital Signs Date Time Temp Pulse Resp B/P Pulse Ox O2 Delivery O2 Flow Rate FiO2 06/10/16 08:45 98.2 51 16 111/66 99 06/09/16 20:00 97.0 67 16 118/74 99 06/09/16 20:00 97.1 67 16 118/74 99 I/O 06/09/16 06/09/16 06/09/16 06/10/16 06/10/16 06/10/16 07:00 15:00 23:00 07:00 15:00 23:00 Intake Total 420 ml 480 ml 220 ml Balance 420 ml 480 ml 220 ml Intake Oral 420 ml 480 ml 220 ml # Voids 2 3 1 # Bowel Movements 0 1 0 Objective Remarks GENERAL: Pleasant well-nourished, well-developed patient in no apparent distress. CARDIOVASCULAR: Regular rate and rhythm. RESPIRATORY: No accessory muscle use. Clear to auscultation. Breath sounds equal bilaterally. NEUROLOGICAL: Awake and alert. Motor grossly within normal limits. Normal speech. 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 Total Self Care Deficit: DCF and case management are involved. Youssef act was lifted by psychiatrist Dandy Walker Malformation and Intellectual Disability: Chronic. Reported mental capacity of [id number]. Hypertension: Amlodipine 10 mg daily. Lisinopril 10 mg po bid. Monitor BP and adjust regimen as needed. Tachycardia: Improved. Patient had been more persistently tachycardic since about Apr 26. No arrhythmia noted. Patient's heart rate has improved recently, intermittently tachycardic. -Thyroid function is normal. -Baseline EKG with sinus rhythm rate 93; one PAC. T-wave inversion in lead 3 and aVF which is likely normal for age. -Labs reviewed with increased red blood cell count and mild prerenal azotemia. Nursing was ordered to push po fluids. DVT Prophylaxis: Low risk, patient ambulating Discharge Planning CM finally heard from patient's father who agreed to fill out application to try to get patient into a detention. Jazmín Meadows Jun 10, 2016 13:06
[2016-06-10 20:00] VITALS: BP 101/63; PULSE 64; RESP 20; TEMP 98.1; O2SAT 98
[2016-06-11 08:00] VITALS: BP 106/68; PULSE 65; RESP 16; TEMP 98.1; O2SAT 100
[2016-06-11] MEDS: LISINOPRIL 10 MG TAB PO SCH ×2 (09:00→20:34)
[2016-06-11] MEDS: METOPROLOL TARTRATE 25 MG TAB PO SCH ×2 (09:00→20:35)
--- NOTE | 2016-06-11 09:17 | HHI.PR ---
Subjective Remarks No acute complaints. No change in clinical status. Objective Vitals Vital Signs Date Time Temp Pulse Resp B/P Pulse Ox O2 Delivery O2 Flow Rate FiO2 06/11/16 08:00 98.1 65 16 106/68 100 06/10/16 20:00 98.1 64 20 101/63 98 I/O 06/10/16 06/10/16 06/10/16 06/11/16 06/11/16 06/11/16 07:00 15:00 23:00 07:00 15:00 23:00 Intake Total 220 ml 1220 ml 120 ml Balance 220 ml 1220 ml 120 ml Intake Oral 220 ml 1220 ml 120 ml # Voids 1 5 1 # Bowel Movements 0 1 0 Objective Remarks GENERAL: Pleasant well-nourished, well-developed patient in no apparent distress. CARDIOVASCULAR: Regular rate and rhythm. RESPIRATORY: No accessory muscle use. Clear to auscultation. Breath sounds equal bilaterally. NEUROLOGICAL: Awake and alert. Motor grossly within normal limits. Normal speech. 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 Total Self Care Deficit: DCF and case management are involved. Youssef act was lifted by psychiatrist Dandy Walker Malformation and Intellectual Disability: Chronic. Reported mental capacity of [id number]. Hypertension: Patient was mildly hypotensive at 106/68 this morning with BP of 101/63 at 2000 last night and metoprolol was still given. Hold BP meds this morning and recheck blood pressure in a couple of hours. Add hold parameters to metoprolol. Amlodipine 10 mg daily. Lisinopril 10 mg po bid. Metoprolol 12.5 q12h. Monitor BP and adjust regimen as needed. Tachycardia: Improved. Patient had been more persistently tachycardic since about Apr 26. No arrhythmia noted. Patient's heart rate has improved on metoprolol. -Thyroid function is normal. -Baseline EKG with sinus rhythm rate 93; one PAC. T-wave inversion in lead 3 and aVF which is likely normal for age. -Labs reviewed with increased red blood cell count and mild prerenal azotemia. Nursing was ordered to push po fluids. DVT Prophylaxis: Low risk, patient ambulating Addendum: Repeat BP 127/66 at 1000. I was not made aware of this until later in the day and so patient never received his scheduled morning BP meds. If BP remains low/normal this evening after no medications today, we will likely need to decrease dose/frequency of medication. Discharge Planning CM finally heard from patient's father who agreed to fill out application to try to get patient into a care home. Jazmín Meadows Jun 11, 2016 09:17
[2016-06-11 10:00] VITALS: BP 127/66
[2016-06-11 20:00] VITALS: BP 152/91; PULSE 120; RESP 20; TEMP 97.4; O2SAT 93
[2016-06-12 08:00] VITALS: BP 142/84; PULSE 61; RESP 16; TEMP 98.2; O2SAT 100
[2016-06-12] MEDS: LISINOPRIL 10 MG TAB PO SCH ×2 (08:46→20:00)
[2016-06-12] MEDS: METOPROLOL TARTRATE 25 MG TAB PO SCH ×2 (08:46→20:00)
--- NOTE | 2016-06-12 16:11 | HHI.PR ---
Subjective Remarks Patient evaluated this morning. No acute complaints. No change in clinical status. Objective Vitals Vital Signs Date Time Temp Pulse Resp B/P Pulse Ox O2 Delivery O2 Flow Rate FiO2 06/12/16 08:00 98.2 61 16 142/84 100 06/11/16 20:00 97.4 120 20 152/91 93 I/O 06/11/16 06/11/16 06/11/16 06/12/16 06/12/16 06/12/16 07:00 15:00 23:00 07:00 15:00 23:00 Intake Total 120 ml 850 ml 480 ml Balance 120 ml 850 ml 480 ml Intake Oral 120 ml 850 ml 480 ml # Voids 1 3 3 6 # Bowel Movements 0 0 2 Objective Remarks GENERAL: Pleasant well-nourished, well-developed patient in no apparent distress. CARDIOVASCULAR: Regular rate and rhythm. Premature beats noted. RESPIRATORY: No accessory muscle use. Clear to auscultation. Breath sounds equal bilaterally. NEUROLOGICAL: Awake and alert. Motor grossly within normal limits. Normal speech. 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 Total Self Care Deficit: DCF and case management are involved. Youssef act was lifted by psychiatrist Dandy Walker Malformation and Intellectual Disability: Chronic. Reported mental capacity of [id number]. Hypertension: Amlodipine 10 mg daily. Lisinopril 10 mg po bid. Metoprolol 12.5 q12h with hold parameters. Monitor BP and adjust regimen as needed. Tachycardia: Improved. Patient had been more persistently tachycardic since about Apr 26. No arrhythmia noted. Patient's heart rate has improved on metoprolol. -Thyroid function is normal. -Baseline EKG with sinus rhythm rate 93; one PAC. T-wave inversion in lead 3 and aVF which is likely normal for age. -Labs reviewed with increased red blood cell count and mild prerenal azotemia. Nursing was ordered to push po fluids. DVT Prophylaxis: Low risk, patient ambulating Discharge Planning CM finally heard from patient's father who agreed to fill out application to try to get patient into a jail. Jazmín Meadows Jun 12, 2016 16:11 Jazmín Meadows Jun 12, 2016 16:11
[2016-06-12 21:11] VITALS: BP 125/78; PULSE 74; RESP 16; TEMP 97.5; O2SAT 99
[2016-06-13 08:00] VITALS: BP 120/84; PULSE 64; RESP 20; TEMP 97.3; O2SAT 99
[2016-06-13] MEDS: METOPROLOL TARTRATE 25 MG TAB PO SCH ×2 (08:48→21:17)
[2016-06-13] MEDS: LISINOPRIL 10 MG TAB PO SCH ×2 (08:49→21:17)
--- NOTE | 2016-06-13 09:13 | HHI.PR ---
Subjective Remarks No acute complaints. No change in clinical status. Objective Vitals Vital Signs Date Time Temp Pulse Resp B/P Pulse Ox O2 Delivery O2 Flow Rate FiO2 06/13/16 08:00 97.3 64 20 120/84 99 06/12/16 21:11 97.5 74 16 125/78 99 I/O 06/12/16 06/12/16 06/12/16 06/13/16 06/13/16 06/13/16 07:00 15:00 23:00 07:00 15:00 23:00 Intake Total 480 ml Balance 480 ml Intake Oral 480 ml # Voids 6 4 2 # Bowel Movements 2 Objective Remarks GENERAL: Pleasant well-nourished, well-developed patient in no apparent distress. CARDIOVASCULAR: Regular rate and rhythm. RESPIRATORY: No accessory muscle use. Clear to auscultation. Breath sounds equal bilaterally. NEUROLOGICAL: Awake and alert. Motor grossly within normal limits. Normal speech. 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 Total Self Care Deficit: DCF and case management are involved. Youssef act was lifted by psychiatrist Dandy Walker Malformation and Intellectual Disability: Chronic. Reported mental capacity of [id number]. Hypertension: Amlodipine 10 mg daily. Lisinopril 10 mg po bid. Metoprolol 12.5 q12h with hold parameters. Monitor BP and adjust regimen as needed. Tachycardia: Improved. Patient had been more persistently tachycardic since about Apr 26. No arrhythmia noted. Patient's heart rate has improved on metoprolol. -Thyroid function is normal. -Baseline EKG with sinus rhythm rate 93; one PAC. T-wave inversion in lead 3 and aVF which is likely normal for age. -Labs reviewed with increased red blood cell count and mild prerenal azotemia. Nursing was ordered to push po fluids. DVT Prophylaxis: Low risk, patient ambulating Discharge Planning CM finally heard from patient's father who agreed to fill out application to try to get patient into a nursing home. Jazmín Meadows Jun 13, 2016 09:13
[2016-06-13 20:49] VITALS: BP 120/70; PULSE 79; RESP 16; TEMP 98; O2SAT 97
--- NOTE | 2016-06-14 08:52 | HHI.PR ---
Subjective Remarks No acute complaints. No change in clinical status. Objective Vitals Vital Signs Date Time Temp Pulse Resp B/P Pulse Ox O2 Delivery O2 Flow Rate FiO2 06/13/16 20:49 98.0 79 16 120/70 97 I/O 06/13/16 06/13/16 06/13/16 06/14/16 06/14/16 06/14/16 07:00 15:00 23:00 07:00 15:00 23:00 Intake Total 720 ml 125 ml Balance 720 ml 125 ml Intake Oral 720 ml 125 ml # Voids 2 3 2 1 # Bowel Movements 1 Objective Remarks GENERAL: Pleasant well-nourished, well-developed patient in no apparent distress. CARDIOVASCULAR: Regular rate and rhythm. RESPIRATORY: No accessory muscle use. Clear to auscultation. Breath sounds equal bilaterally. NEUROLOGICAL: Awake and alert. Motor grossly within normal limits. Normal speech. 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 Total Self Care Deficit: DCF and case management are involved. Youssef act was lifted by psychiatrist Dandy Walker Malformation and Intellectual Disability: Chronic. Reported mental capacity of [id number]. Hypertension: Amlodipine 10 mg daily. Lisinopril 10 mg po bid. Metoprolol 12.5 q12h with hold parameters. Monitor BP and adjust regimen as needed. Tachycardia: Improved. Patient had been more persistently tachycardic since about Apr 26. No arrhythmia noted. Patient's heart rate has improved on metoprolol. -Thyroid function is normal. -Baseline EKG with sinus rhythm rate 93; one PAC. T-wave inversion in lead 3 and aVF which is likely normal for age. -Labs reviewed with increased red blood cell count and mild prerenal azotemia. Nursing was ordered to push po fluids. DVT Prophylaxis: Low risk, patient ambulating Discharge Planning CM finally heard from patient's father who agreed to fill out application to try to get patient into a fpc. Jazmín Meadows Jun 14, 2016 08:52
[2016-06-14] MEDS: METOPROLOL TARTRATE 25 MG TAB PO SCH ×2 (09:00→20:29)
[2016-06-14 09:30] VITALS: BP 108/60; PULSE 50; RESP 15; TEMP 98.1; O2SAT 99
[2016-06-14] MEDS: LISINOPRIL 10 MG TAB PO SCH ×2 (09:42→20:29)
[2016-06-14 20:00] VITALS: BP 113/74; PULSE 67; RESP 20; TEMP 97.8; O2SAT 98
[2016-06-15 08:00] VITALS: BP 119/72; PULSE 85; RESP 16; TEMP 96.3; O2SAT 96
[2016-06-15] MEDS: LISINOPRIL 10 MG TAB PO SCH ×2 (08:36→21:56)
[2016-06-15] MEDS: METOPROLOL TARTRATE 25 MG TAB PO SCH ×2 (08:37→21:58)
--- NOTE | 2016-06-15 15:04 | HHI.PR ---
Subjective Remarks Patient denies any acute clinical complaints. No change in clinical status. Sitter at the bedside. Patient seen ambulating several times in the hallway earlier today. Objective Vitals Vital Signs Date Time Temp Pulse Resp B/P Pulse Ox O2 Delivery O2 Flow Rate FiO2 06/15/16 08:00 96.3 85 16 119/72 96 06/14/16 20:00 97.8 67 20 113/74 98 I/O 06/14/16 06/14/16 06/14/16 06/15/16 06/15/16 06/15/16 07:00 15:00 23:00 07:00 15:00 23:00 Intake Total 125 ml 1240 ml 240 ml 720 ml Balance 125 ml 1240 ml 240 ml 720 ml Intake Oral 125 ml 1240 ml 240 ml 720 ml # Voids 1 7 2 2 # Bowel Movements 1 0 0 Objective Remarks GENERAL: Pleasant well-nourished, well-developed patient in no apparent distress. CARDIOVASCULAR: Regular rate and rhythm. RESPIRATORY: No accessory muscle use. Clear to auscultation. Breath sounds equal bilaterally. NEUROLOGICAL: Awake and alert. Motor grossly within normal limits. Normal speech. Procedures none Urinary Catheter: No Vascular Central Line Catheter: No Procedures none Medications and IVs Current Medications Medications (Trade) Dose Ordered Sig/Carol Route Start Time Stop Time Status Last Admin (Dulcolax Supp) 10 mg DAILY PRN [place] 04/02/16 20:15 (Tylenol) 650 mg Q6H PRN PO 04/02/16 20:15 (Ativan) 0.5 mg Q6H PRN PO 04/04/16 08:00 06/06/16 20:17 (Pill Splitter) 1 ea UNSCH PRN OTHER 04/04/16 14:15 (Norvasc) 10 mg DAILY PO 04/22/16 09:00 06/15/16 08:36 (Prinivil) 10 mg BID PO 05/09/16 21:00 06/15/16 08:36 (Lopressor) 12.5 mg Q12HR PO 06/01/16 10:30 06/15/16 08:37 A/P Problem List: (1) Total self-care deficit ICD Code: R41.89 Status: Acute (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 Total Self Care Deficit: DCF and case management are involved. Youssef act was lifted by psychiatrist Danyung Walker Malformation and Intellectual Disability: Chronic. Reported mental capacity of [id number]. Hypertension: Well-controlled at present Amlodipine 10 mg daily. Lisinopril 10 mg po bid. Metoprolol 12.5 q12h with hold parameters. Monitor BP and adjust regimen as needed. Tachycardia: Resolved. Patient had been more persistently tachycardic since about Apr 26. No arrhythmia noted. Patient's heart rate has improved on metoprolol. -Thyroid function is normal. -Baseline EKG with sinus rhythm rate 93; one PAC. T-wave inversion in lead 3 and aVF which is likely normal for age. -Labs reviewed with increased red blood cell count and mild prerenal azotemia. Nursing was ordered to push po fluids. DVT Prophylaxis: Low risk, patient ambulating Discharge Planning CM finally heard from patient's father who agreed to fill out application to try to get patient into a nursing home. Kanchan Chapin Jun 15, 2016 15:04
[2016-06-15 20:00] VITALS: BP 123/70; PULSE 72; RESP 21; TEMP 96.1; O2SAT 100
[2016-06-16 07:57] VITALS: BP 125/82; PULSE 56; RESP 12; TEMP 96.4; O2SAT 99
[2016-06-16] MEDS: METOPROLOL TARTRATE 25 MG TAB PO SCH (08:02)
[2016-06-16] MEDS: LISINOPRIL 10 MG TAB PO SCH ×2 (08:03→21:07)
[2016-06-16 09:48] VITALS: BP 125/82; PULSE 56; RESP 12; TEMP 96.4; O2SAT 99
--- NOTE | 2016-06-16 13:19 | HHI.PR ---
Subjective Remarks Follow-up of patient with Dandy-Walker syndrome and mental retardation brought in under Youssef act for placement. Patient seen and examined. No change in current clinical status. Sitter at the bedside Objective Vitals Vital Signs Date Time Temp Pulse Resp B/P Pulse Ox O2 Delivery O2 Flow Rate FiO2 06/16/16 09:48 96.4 56 12 125/82 99 06/16/16 07:57 96.4 56 12 125/82 99 06/15/16 20:00 96.1 72 21 123/70 100 I/O 06/15/16 06/15/16 06/15/16 06/16/16 06/16/16 06/16/16 07:00 15:00 23:00 07:00 15:00 23:00 Intake Total 240 ml 720 ml 240 ml 240 ml Output Total 0 ml Balance 240 ml 720 ml 240 ml 240 ml Intake Oral 240 ml 720 ml 240 ml 240 ml Stool Total 0 ml # Voids 2 2 3 1 # Bowel Movements 0 0 0 Objective Remarks GENERAL: Pleasant well-nourished, well-developed young male patient in no apparent distress. Sitter at bedside. CARDIOVASCULAR: Regular rate and rhythm. RESPIRATORY: No accessory muscle use. Clear to auscultation. Breath sounds equal bilaterally. NEUROLOGICAL: Awake and alert. Motor grossly within normal limits. Normal speech. Procedures none Urinary Catheter: No Vascular Central Line Catheter: No Procedures none Medications and IVs Current Medications Medications (Trade) Dose Ordered Sig/Carol Route Start Time Stop Time Status Last Admin (Dulcolax Supp) 10 mg DAILY PRN [place] 04/02/16 20:15 (Tylenol) 650 mg Q6H PRN PO 04/02/16 20:15 (Ativan) 0.5 mg Q6H PRN PO 04/04/16 08:00 06/06/16 20:17 (Pill Splitter) 1 ea UNSCH PRN OTHER 04/04/16 14:15 (Norvasc) 10 mg DAILY PO 04/22/16 09:00 06/16/16 08:03 (Prinivil) 10 mg BID PO 05/09/16 21:00 06/16/16 08:03 (Lopressor) 12.5 mg Q12HR PO 06/01/16 10:30 06/15/16 21:58 A/P Problem List: (1) Total self-care deficit ICD Code: R41.89 Status: Acute (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 Total Self Care Deficit: DCF and case management are involved. Youssef act was lifted by psychiatrist Dandy Walker Malformation and Intellectual Disability: Chronic. Reported mental capacity of [id number]. Hypertension: Well-controlled at present Amlodipine 10 mg daily. Lisinopril 10 mg po bid. Metoprolol 12.5 q12h with hold parameters. Monitor BP and adjust regimen as needed. Tachycardia: Resolved. Patient had been more persistently tachycardic since about Apr 26. No arrhythmia noted. Patient's heart rate has improved on metoprolol. Now with low heart rate in the mid 50s. Decrease metoprolol dose to 12.5 mg daily and monitor response. -Thyroid function is normal. -Baseline EKG with sinus rhythm rate 93; one PAC. T-wave inversion in lead 3 and aVF which is likely normal for age. DVT Prophylaxis: Low risk, patient ambulating a lot. Per patient's sitter, ambulated 9 miles the other day. Discharge Planning 06/07/16 - CM finally heard from patient's father who agreed to fill out application to try to get patient into a retirement. 06/16/16 - reviewed CM noted, request made to [facility] for evaluation of possible placement. Kanchan Chapin Jun 16, 2016 13:19
[2016-06-16 20:00] VITALS: BP 100/74; PULSE 74; RESP 20; TEMP 97.5; O2SAT 100
[2016-06-17 08:00] VITALS: BP 121/74; PULSE 56; RESP 16; TEMP 98; O2SAT 97
[2016-06-17] MEDS: METOPROLOL TARTRATE 25 MG TAB PO SCH (09:12)
[2016-06-17] MEDS: LISINOPRIL 10 MG TAB PO SCH ×2 (09:12→20:06)
--- NOTE | 2016-06-17 09:53 | HHI.PR ---
Subjective Remarks Follow-up of patient with Dandy-Walker syndrome and mental retardation brought in under Youssef act for placement. Patient seen and examined lying in his hospital bed. He denies any complaints including any chest pain, SOB or abdominal pain. No change in current clinical status. Sitter at the bedside. Objective Vitals Vital Signs Date Time Temp Pulse Resp B/P Pulse Ox O2 Delivery O2 Flow Rate FiO2 06/16/16 20:00 97.5 74 20 100/74 100 I/O 06/16/16 06/16/16 06/16/16 06/17/16 06/17/16 06/17/16 07:00 15:00 23:00 07:00 15:00 23:00 Intake Total 240 ml 240 ml 240 ml Balance 240 ml 240 ml 240 ml Intake Oral 240 ml 240 ml 240 ml # Voids 1 4 2 # Bowel Movements 0 Objective Remarks GENERAL: Pleasant well-nourished, well-developed young male patient in no apparent distress. Sitter at bedside. CARDIOVASCULAR: Regular rate and rhythm. RESPIRATORY: No accessory muscle use. Clear to auscultation. Breath sounds equal bilaterally. NEUROLOGICAL: Awake and alert. Motor grossly within normal limits. Normal speech. Procedures none Urinary Catheter: No Vascular Central Line Catheter: No Procedures none Medications and IVs Current Medications Medications (Trade) Dose Ordered Sig/Carol Route Start Time Stop Time Status Last Admin (Dulcolax Supp) 10 mg DAILY PRN [place] 04/02/16 20:15 (Tylenol) 650 mg Q6H PRN PO 04/02/16 20:15 (Ativan) 0.5 mg Q6H PRN PO 04/04/16 08:00 06/06/16 20:17 (Pill Splitter) 1 ea UNSCH PRN OTHER 04/04/16 14:15 (Norvasc) 10 mg DAILY PO 04/22/16 09:00 06/17/16 09:12 (Prinivil) 10 mg BID PO 05/09/16 21:00 06/17/16 09:12 (Lopressor) 12.5 mg DAILY PO 06/17/16 09:00 06/17/16 09:12 A/P Problem List: (1) Total self-care deficit ICD Code: R41.89 Status: Acute (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 Total Self Care Deficit: DCF and case management are involved. Youssef act was lifted by psychiatrist Dandy Walker Malformation and Intellectual Disability: Chronic. Reported mental capacity of [id number]. Hypertension: Well-controlled at present Amlodipine 10 mg daily. Lisinopril 10 mg po bid. Metoprolol 12.5 daily. Monitor BP and adjust regimen as needed. Tachycardia: Resolved. Patient had been more persistently tachycardic since about Apr 26. No arrhythmia noted. Patient's heart rate has improved on metoprolol. Now with low heart rate in the mid 50s. Decreased dose of metoprolol to 12.5 mg daily. Last HR 74 Thyroid function is normal. Baseline EKG with sinus rhythm rate 93; one PAC. T-wave inversion in lead 3 and aVF which is likely normal for age. DVT Prophylaxis: Low risk, patient ambulating a lot. Per patient's sitter, ambulated 9 miles the other day. Discharge Planning 06/07/16 - CM finally heard from patient's father who agreed to fill out application to try to get patient into a [facility]. 06/16/16 - reviewed CM noted, request made to [facility] for evaluation of possible placement. Kanchan Chapin Jun 17, 2016 09:53
[2016-06-17 20:00] VITALS: BP 141/81; PULSE 68; RESP 18; TEMP 97; O2SAT 96
[2016-06-17] MEDS: LORazepam 0.5 MG TAB PO PRN (20:06)
[2016-06-18 08:00] VITALS: BP 112/81; PULSE 97; RESP 16; TEMP 98.4; O2SAT 99
[2016-06-18] MEDS: LISINOPRIL 10 MG TAB PO SCH ×2 (08:52→21:39)
[2016-06-18] MEDS: METOPROLOL TARTRATE 25 MG TAB PO SCH (08:52)
--- NOTE | 2016-06-18 11:19 | HHI.PR ---
Subjective Remarks Patient seen and examined today. Patient denies any new complaints. Sitter at bedside indicated patient has been more agitated than usual. Objective Vitals Vital Signs Date Time Temp Pulse Resp B/P Pulse Ox O2 Delivery O2 Flow Rate FiO2 06/18/16 08:00 98.4 97 16 112/81 99 06/17/16 20:00 97.0 68 18 141/81 96 I/O 06/17/16 06/17/16 06/17/16 06/18/16 06/18/16 06/18/16 07:00 15:00 23:00 07:00 15:00 23:00 Intake Total 240 ml 1000 ml 200 ml Balance 240 ml 1000 ml 200 ml Intake Oral 240 ml 1000 ml 200 ml # Voids 2 2 1 # Bowel Movements 0 0 Objective Remarks GENERAL: Well-developed, well-nourished, in no acute distress. alert and orientated to person, city, state, president HEENT: Head is normocephalic without any lesions or masses noted. Facial features are symmetric. Eyes: Extraocular muscles are intact. Conjunctivae were clear. NECK: Supple without any masses. Trachea midline no deviation. CARDIAC: Regular rhythm, regular rate. S1/S2 are heard. No murmurs gallops or rubs. LUNGS: Clear to auscultation bilaterally. No wheeze, rhonchi or rales. No use of accessory muscles on inspiration or expiration. ABDOMEN: Soft, nontender. Nondistended. Bowel sounds heard in all 4 quadrants. No organomegaly or masses. Negative rebound, negative guarding EXTREMITIES: No edema, pulses are equal bilaterally. No cyanosis or clubbing NEUROLOGY: Mood and affect appear appropriate. Cranial nerves II through XII grossly intact. 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 Total Self Care Deficit: DCF and case management are involved. Needs placement. Patient Youssef acted and Youssef act was lifted by psychiatrist Ant Guillen Malformation and Intellectual Disability: Chronic. Reported mental capacity of [id number]. Patient is a flight risk, patient had to have sitter ordered Hypertension Amlodipine 10 mg daily Lisinopril 10 mg twice daily Lopressor 12.5 mg daily Sinus tachycardia, with bradycardia Low pressure was started at 12.5 mg twice daily with improvement of his tachycardia, however patient did have bradycardia with heart rate 56, Lopressor was changed to once daily with improvement of his heart rate. TSH normal 0.91 DVT Prophylaxis: Low risk, patient ambulating Discharge Planning Discharge planning per case management. Case management arranging [facility] placement. Patient has been declined by [facility] thus far. Awaiting for [facility] to evaluate Yaniv Simmons Jun 18, 2016 11:19
[2016-06-18] MEDS ORDERED: LORazepam 2 MG/ML VIAL IM ONE (20:00)
[2016-06-19 08:00] VITALS: BP 90/60; PULSE 63; RESP 18; TEMP 97.1; O2SAT 97
[2016-06-19] MEDS: LISINOPRIL 10 MG TAB PO SCH ×2 (09:00→20:37)
[2016-06-19] MEDS: METOPROLOL TARTRATE 25 MG TAB PO SCH (09:00)
--- NOTE | 2016-06-19 14:26 | HHI.PR ---
Subjective Remarks Patient seen and examined today. Patient denies any new complaints. Apparently the patient got himself in the elevator yesterday would not get out. Objective Vitals Vital Signs Date Time Temp Pulse Resp B/P Pulse Ox O2 Delivery O2 Flow Rate FiO2 06/19/16 08:00 97.1 63 18 90/60 97 06/18/16 20:22 I/O 06/18/16 06/18/16 06/18/16 06/19/16 06/19/16 06/19/16 07:00 15:00 23:00 07:00 15:00 23:00 Intake Total 200 ml 480 ml Balance 200 ml 480 ml Intake Oral 200 ml 480 ml # Voids 1 2 2 2 5 # Bowel Movements 0 1 Objective Remarks GENERAL: Well-developed, well-nourished, in no acute distress. alert and orientated to person, city, state, president HEENT: Head is normocephalic without any lesions or masses noted. Facial features are symmetric. Eyes: Extraocular muscles are intact. Conjunctivae were clear. NECK: Supple without any masses. Trachea midline no deviation. CARDIAC: Regular rhythm, regular rate. S1/S2 are heard. No murmurs gallops or rubs. LUNGS: Clear to auscultation bilaterally. No wheeze, rhonchi or rales. No use of accessory muscles on inspiration or expiration. ABDOMEN: Soft, nontender. Nondistended. Bowel sounds heard in all 4 quadrants. No organomegaly or masses. Negative rebound, negative guarding EXTREMITIES: No edema, pulses are equal bilaterally. No cyanosis or clubbing NEUROLOGY: Mood and affect appear appropriate. Cranial nerves II through XII grossly intact. 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 Total Self Care Deficit: DCF and case management are involved. Needs placement. Patient Mikael acted and Youssef act was lifted by psychiatrist Ant Guillen Malformation and Intellectual Disability: Chronic. Reported mental capacity of [id number]. Patient is a flight risk, patient had to have sitter ordered Hypertension Amlodipine 10 mg daily Lisinopril 10 mg twice daily Lopressor 12.5 mg daily Sinus tachycardia, with bradycardia Heart rate improved with Lopressor 12.5 mg daily TSH normal 0.91 DVT Prophylaxis: Low risk, patient ambulating Discharge Planning Discharge planning per case management. Case management arranging [facility] placement. Patient has been declined by [facility] thus far. Awaiting for [facility] to evaluate Yaniv Simmons Jun 19, 2016 14:26
[2016-06-19 20:00] VITALS: BP 142/85; PULSE 89; RESP 21; TEMP 97.1; O2SAT 97
[2016-06-19] MEDS: LORazepam 0.5 MG TAB PO PRN (20:37)
[2016-06-20] MEDS: LISINOPRIL 10 MG TAB PO SCH ×2 (07:32→21:26)
[2016-06-20] MEDS: METOPROLOL TARTRATE 25 MG TAB PO SCH (07:32)
[2016-06-20 08:00] VITALS: BP 121/82; PULSE 70; RESP 18; TEMP 97.8; O2SAT 95
--- NOTE | 2016-06-20 11:14 | HHI.PR ---
Subjective Remarks Patient seen and examined today. Patient denies any new complaints. No change in clinical status. Objective Vitals Vital Signs Date Time Temp Pulse Resp B/P Pulse Ox O2 Delivery O2 Flow Rate FiO2 06/20/16 08:00 97.8 70 18 121/82 95 06/19/16 20:00 97.1 89 21 142/85 97 I/O 06/19/16 06/19/16 06/19/16 06/20/16 06/20/16 06/20/16 07:00 15:00 23:00 07:00 15:00 23:00 Intake Total 480 ml 340 ml Balance 480 ml 340 ml Intake Oral 480 ml 340 ml # Voids 2 5 2 1 # Bowel Movements 0 0 Objective Remarks GENERAL: Well-developed, well-nourished, in no acute distress. alert and orientated to person, city, state, president HEENT: Head is normocephalic without any lesions or masses noted. Facial features are symmetric. Eyes: Extraocular muscles are intact. Conjunctivae were clear. NECK: Supple without any masses. Trachea midline no deviation. CARDIAC: Regular rhythm, regular rate. S1/S2 are heard. No murmurs gallops or rubs. LUNGS: Clear to auscultation bilaterally. No wheeze, rhonchi or rales. No use of accessory muscles on inspiration or expiration. ABDOMEN: Soft, nontender. Nondistended. Bowel sounds heard in all 4 quadrants. No organomegaly or masses. Negative rebound, negative guarding EXTREMITIES: No edema, pulses are equal bilaterally. No cyanosis or clubbing NEUROLOGY: Mood and affect appear appropriate. Cranial nerves II through XII grossly intact. 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 Total Self Care Deficit: DCF and case management are involved. Needs placement. Patient Youssef acted and Youssef act was lifted by psychiatrist Ant Guillen Malformation and Intellectual Disability: Chronic. Reported mental capacity of [id number]. Patient is a flight risk, patient had to have sitter ordered Hypertension Amlodipine 10 mg daily Lisinopril 10 mg twice daily Lopressor 12.5 mg daily Sinus tachycardia, with bradycardia Heart rate improved with Lopressor 12.5 mg daily TSH normal 0.91 DVT Prophylaxis: Low risk, patient ambulating Discharge Planning Discharge planning per case management. Case management arranging [facility] placement. Patient has been declined by [facility] thus far. Awaiting for [facility] to evaluate Yaniv Simmons Jun 20, 2016 11:14
[2016-06-20 20:00] VITALS: BP 119/72; PULSE 83; RESP 21; TEMP 97.8; O2SAT 99
[2016-06-20] MEDS: LORazepam 0.5 MG TAB PO PRN (22:32)
[2016-06-21 08:00] VITALS: BP 129/74; PULSE 66; RESP 16; TEMP 97.8; O2SAT 100
--- NOTE | 2016-06-21 09:17 | HHI.PR ---
Subjective Remarks Follow-up of patient with Dandy-Walker syndrome and mental retardation brought in under Youssef act for placement. Patient seen and examined today lying in hospital bed. Patient denies any new complaints. No change in clinical status. Objective Vitals Vital Signs Date Time Temp Pulse Resp B/P Pulse Ox O2 Delivery O2 Flow Rate FiO2 06/20/16 20:00 97.8 83 21 119/72 99 I/O 06/20/16 06/20/16 06/20/16 06/21/16 06/21/16 06/21/16 07:00 15:00 23:00 07:00 15:00 23:00 Intake Total 340 ml 500 ml 240 ml 480 ml Balance 340 ml 500 ml 240 ml 480 ml Intake Oral 340 ml 500 ml 240 ml 480 ml # Voids 1 4 1 3 1 # Bowel Movements 0 0 0 0 Objective Remarks GENERAL: Well-nourished, well-developed young male, in NAD. Awake and alert. Sitter at bedside. SKIN: Warm and dry. No rash. HEAD: Normocephalic. Atraumatic. EYES: Pupils equal and round. No scleral icterus. No injection or drainage. ENT: No nasal bleeding or discharge. Mucous membranes pink and moist. NECK: Supple. Trachea midline. CARDIOVASCULAR: Regular rate and rhythm. S1, S2 noted. No murmur appreciated. RESPIRATORY: No accessory muscle use. Clear to auscultation. Breath sounds equal bilaterally. GASTROINTESTINAL: Abdomen soft, non-tender, nondistended. Normoactive bowel sounds x4. MUSCULOSKELETAL: No obvious deformities. Extremities without clubbing, cyanosis , or edema. NEUROLOGICAL: Awake and alert. No obvious cranial nerve deficits. Motor grossly within normal limits. Procedures none Medications and IVs Current Medications Medications (Trade) Dose Ordered Sig/Carol Route Start Time Stop Time Status Last Admin (Dulcolax Supp) 10 mg DAILY PRN [place] 04/02/16 20:15 (Tylenol) 650 mg Q6H PRN PO 04/02/16 20:15 (Ativan) 0.5 mg Q6H PRN PO 04/04/16 08:00 06/20/16 22:32 (Pill Splitter) 1 ea UNSCH PRN OTHER 04/04/16 14:15 (Norvasc) 10 mg DAILY PO 04/22/16 09:00 06/21/16 09:22 (Prinivil) 10 mg BID PO 05/09/16 21:00 06/21/16 09:23 (Lopressor) 12.5 mg DAILY PO 06/17/16 09:00 06/21/16 09:22 Urinary Catheter: No A/P Problem List: (1) Total self-care deficit ICD Code: R41.89 Status: Acute (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 Total Self Care Deficit: DCF and case management are involved. Needs placement. Patient Mikael acted and Youssef act was lifted by psychiatrist Dandy Walker Malformation and Intellectual Disability: Chronic. Reported mental capacity of [id number]. Patient is a flight risk, patient had to have sitter ordered Hypertension Good control at present Amlodipine 10 mg daily Lisinopril 10 mg twice daily Lopressor 12.5 mg daily Sinus tachycardia, with bradycardia Heart rate improved with Lopressor 12.5 mg daily TSH normal 0.91 DVT Prophylaxis: Low risk, patient ambulating Discharge Planning Discharge planning per case management. Case management arranging SNF placement. Patient has been declined by [facility] thus far. Awaiting for [facility] and [facility] to evaluate. Kanchan Chapin Jun 21, 2016 09:17
[2016-06-21] MEDS: METOPROLOL TARTRATE 25 MG TAB PO SCH (09:22)
[2016-06-21] MEDS: LISINOPRIL 10 MG TAB PO SCH ×2 (09:23→21:05)
[2016-06-21 20:00] VITALS: BP 123/88; PULSE 74; RESP 18; TEMP 97.2; O2SAT 98
[2016-06-22] MEDS: LISINOPRIL 10 MG TAB PO SCH ×2 (07:40→20:48)
[2016-06-22] MEDS: METOPROLOL TARTRATE 25 MG TAB PO SCH (07:40)
[2016-06-22 08:00] VITALS: BP 128/80; PULSE 79; RESP 19; TEMP 98; O2SAT 99
--- NOTE | 2016-06-22 10:35 | HHI.PR ---
Subjective Remarks No acute complaints. No change in clinical status. Objective Vitals Vital Signs Date Time Temp Pulse Resp B/P Pulse Ox O2 Delivery O2 Flow Rate FiO2 06/22/16 08:00 98.0 79 19 128/80 99 06/21/16 20:00 97.2 74 18 123/88 98 I/O 06/21/16 06/21/16 06/21/16 06/22/16 06/22/16 06/22/16 07:00 15:00 23:00 07:00 15:00 23:00 Intake Total 480 ml 960 ml 360 ml 180 ml Balance 480 ml 960 ml 360 ml 180 ml Intake Oral 480 ml 960 ml 360 ml 180 ml # Voids 3 5 1 1 # Bowel Movements 0 0 0 Objective Remarks GENERAL: Pleasant well-nourished, well-developed patient in no apparent distress. CARDIOVASCULAR: Regular rate and rhythm. RESPIRATORY: No accessory muscle use. Clear to auscultation. Breath sounds equal bilaterally. NEUROLOGICAL: Awake and alert. Motor grossly within normal limits. Ambulatory. Normal speech. 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 Total Self Care Deficit: DCF and case management are involved. Youssef act was lifted by psychiatrist Dandy Walker Malformation and Intellectual Disability: Chronic. Reported mental capacity of [id number]. Hypertension: Amlodipine 10 mg daily. Lisinopril 10 mg po bid. Metoprolol 12.5 q12h with hold parameters. Monitor BP and adjust regimen as needed. Tachycardia: Improved. -Thyroid function is normal. -Baseline EKG with sinus rhythm rate 93; one PAC. T-wave inversion in lead 3 and aVF which is likely normal for age. -Labs reviewed. -Continue metoprolol. DVT Prophylaxis: Low risk, patient ambulating Discharge Planning CM finally heard from patient's father who agreed to fill out application to try to get patient into a half-way. 06/17/16 Requested [facility] and [facility] to eval for placement. Jazmín Meadows Jun 22, 2016 10:35
[2016-06-22 20:00] VITALS: BP 122/85; PULSE 76; RESP 18; TEMP 97.8; O2SAT 98
[2016-06-23] MEDS: METOPROLOL TARTRATE 25 MG TAB PO SCH (07:52)
[2016-06-23] MEDS: LISINOPRIL 10 MG TAB PO SCH ×2 (07:52→20:53)
[2016-06-23 08:00] VITALS: BP 124/70; PULSE 104; RESP 18; TEMP 97.5; O2SAT 98
--- NOTE | 2016-06-23 10:30 | HHI.PR ---
Subjective Remarks No acute complaints. No change in clinical status. Objective Vitals Vital Signs Date Time Temp Pulse Resp B/P Pulse Ox O2 Delivery O2 Flow Rate FiO2 06/23/16 08:00 97.5 104 18 124/70 98 06/22/16 20:00 97.8 76 18 122/85 98 I/O 06/22/16 06/22/16 06/22/16 06/23/16 06/23/16 06/23/16 07:00 15:00 23:00 07:00 15:00 23:00 Intake Total 180 ml 560 ml 620 ml 240 ml Balance 180 ml 560 ml 620 ml 240 ml Intake Oral 180 ml 560 ml 620 ml 240 ml # Voids 1 1 1 # Bowel Movements 0 0 0 Objective Remarks GENERAL: Pleasant well-nourished, well-developed patient in no apparent distress. CARDIOVASCULAR: Regular rate and rhythm. RESPIRATORY: No accessory muscle use. Clear to auscultation. Breath sounds equal bilaterally. NEUROLOGICAL: Awake and alert. Motor grossly within normal limits. Ambulatory. Normal speech. 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 Total Self Care Deficit: DCF and case management are involved. Youssef act was lifted by psychiatrist Dandy Walker Malformation and Intellectual Disability: Chronic. Reported mental capacity of [id number]. Hypertension: Amlodipine 10 mg daily. Lisinopril 10 mg po bid. Metoprolol 12.5 q12h with hold parameters. Monitor BP and adjust regimen as needed. Tachycardia: Improved. -Thyroid function is normal. -Baseline EKG with sinus rhythm rate 93; one PAC. T-wave inversion in lead 3 and aVF which is likely normal for age. -Labs reviewed. -Continue metoprolol. DVT Prophylaxis: Low risk, patient ambulating Discharge Planning CM finally heard from patient's father who agreed to fill out application to try to get patient into a skilled nursing. 06/17/16 Requested [facility] and [facility] to eval for placement. Jazmín Meadows Jun 23, 2016 10:30
[2016-06-23 20:00] VITALS: BP 118/74; PULSE 81; RESP 18; TEMP 98.5; O2SAT 100
[2016-06-24 08:00] VITALS: BP 130/84; PULSE 80; RESP 20; TEMP 98.1; O2SAT 99
[2016-06-24] MEDS: LISINOPRIL 10 MG TAB PO SCH ×2 (10:36→20:35)
[2016-06-24] MEDS: METOPROLOL TARTRATE 25 MG TAB PO SCH (10:36)
--- NOTE | 2016-06-24 10:40 | HHI.PR ---
Subjective Remarks No acute complaints. No change in clinical status. Objective Vitals Vital Signs Date Time Temp Pulse Resp B/P Pulse Ox O2 Delivery O2 Flow Rate FiO2 06/24/16 08:00 98.1 80 20 130/84 99 06/23/16 20:00 98.5 81 18 118/74 100 I/O 06/23/16 06/23/16 06/23/16 06/24/16 06/24/16 06/24/16 07:00 15:00 23:00 07:00 15:00 23:00 Intake Total 240 ml 960 ml 800 ml 300 ml Output Total 4 ml Balance 240 ml 956 ml 800 ml 300 ml Intake Oral 240 ml 960 ml 800 ml 300 ml Output Urine Total 4 ml # Voids 1 4 2 # Bowel Movements 0 1 Objective Remarks GENERAL: Pleasant well-nourished, well-developed patient in no apparent distress. CARDIOVASCULAR: Regular rate and rhythm. RESPIRATORY: No accessory muscle use. Clear to auscultation. Breath sounds equal bilaterally. ABDOMINAL: Abdomen soft, non-tender, non-distended. NEUROLOGICAL: Awake and alert. Motor grossly within normal limits. Normal speech. 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 Total Self Care Deficit: DCF and case management are involved. Youssef act was lifted by psychiatrist Dandy Walker Malformation and Intellectual Disability: Chronic. Reported mental capacity of [id number]. Hypertension: Amlodipine 10 mg daily. Lisinopril 10 mg po bid. Metoprolol 12.5 q12h with hold parameters. Monitor BP and adjust regimen as needed. Tachycardia: Improved. -Thyroid function is normal. -Baseline EKG with sinus rhythm rate 93; one PAC. T-wave inversion in lead 3 and aVF which is likely normal for age. -Labs reviewed. -Continue metoprolol. DVT Prophylaxis: Low risk, patient ambulating Discharge Planning CM finally heard from patient's father who agreed to fill out application to try to get patient into a detention. 06/17/16 Requested [facility] and [facility] to eval for placement. 06/23/16: [facility] visited patient. 06/24/16: I spoke with Johann Bose who states he is working on contract with [facility] and patient will likely be discharged on Wednesday 06/28. Jazmín Meadows Jun 24, 2016 10:40
[2016-06-24 20:00] VITALS: BP 140/80; PULSE 88; RESP 20; TEMP 98.1; O2SAT 96
[2016-06-25 08:00] VITALS: BP 117/72; PULSE 71; RESP 18; TEMP 97.8; O2SAT 100
[2016-06-25] MEDS: LISINOPRIL 10 MG TAB PO SCH ×2 (09:32→21:46)
[2016-06-25] MEDS: METOPROLOL TARTRATE 25 MG TAB PO SCH (09:32)
--- NOTE | 2016-06-25 12:12 | HHI.PR ---
Subjective Remarks No acute complaints. No change in clinical status. Objective Vitals Vital Signs Date Time Temp Pulse Resp B/P Pulse Ox O2 Delivery O2 Flow Rate FiO2 06/25/16 08:00 97.8 71 18 117/72 100 06/24/16 20:00 98.1 88 20 140/80 96 I/O 06/24/16 06/24/16 06/24/16 06/25/16 06/25/16 06/25/16 07:00 15:00 23:00 07:00 15:00 23:00 Intake Total 300 ml 1000 ml 480 ml 480 ml Balance 300 ml 1000 ml 480 ml 480 ml Intake Oral 300 ml 1000 ml 480 ml 480 ml # Voids 2 5 2 3 # Bowel Movements 1 0 0 Objective Remarks GENERAL: Pleasant well-nourished, well-developed patient in no apparent distress. CARDIOVASCULAR: Regular rate and rhythm. RESPIRATORY: No accessory muscle use. Clear to auscultation. Breath sounds equal bilaterally. NEUROLOGICAL: Awake and alert. Motor grossly within normal limits. Normal speech. 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 Total Self Care Deficit: DCF and case management are involved. Youssef act was lifted by psychiatrist Dandy Walker Malformation and Intellectual Disability: Chronic. Reported mental capacity of [id number]. Hypertension: Amlodipine 10 mg daily. Lisinopril 10 mg po bid. Metoprolol 12.5 q12h with hold parameters. Monitor BP and adjust regimen as needed. Tachycardia: Improved. -Thyroid function is normal. -Baseline EKG with sinus rhythm rate 93; one PAC. T-wave inversion in lead 3 and aVF which is likely normal for age. -Labs reviewed. -Continue metoprolol. DVT Prophylaxis: Low risk, patient ambulating Discharge Planning CM finally heard from patient's father who agreed to fill out application to try to get patient into a retirement. 06/17/16 Requested [facility] and [facility] to eval for placement. 06/23/16: [facility] visited patient. 06/24/16: I spoke with Johann Bose who states he is working on contract with [facility] and patient will likely be discharged on Wednesday 06/28. Jazmín Meadows Jun 25, 2016 12:12
[2016-06-25 20:00] VITALS: BP 121/74; PULSE 65; RESP 18; TEMP 98.7; O2SAT 97
[2016-06-26 08:00] VITALS: BP 133/88; PULSE 94; RESP 20; TEMP 98.2; O2SAT 98
[2016-06-26] MEDS: LISINOPRIL 10 MG TAB PO SCH ×2 (08:23→20:41)
[2016-06-26] MEDS: METOPROLOL TARTRATE 25 MG TAB PO SCH (08:23)
--- NOTE | 2016-06-26 11:37 | HHI.PR ---
Subjective Remarks No acute complaints. No change in clinical status. Objective Vitals Vital Signs Date Time Temp Pulse Resp B/P Pulse Ox O2 Delivery O2 Flow Rate FiO2 06/26/16 08:00 98.2 94 20 133/88 98 06/25/16 20:00 98.7 65 18 121/74 97 I/O 06/25/16 06/25/16 06/25/16 06/26/16 06/26/16 06/26/16 07:00 15:00 23:00 07:00 15:00 23:00 Intake Total 480 ml 960 ml 720 ml 220 ml Balance 480 ml 960 ml 720 ml 220 ml Intake Oral 480 ml 960 ml 480 ml 220 ml Oral Supplement 240 ml # Voids 3 5 2 1 # Bowel Movements 0 1 0 0 Objective Remarks GENERAL: Pleasant well-nourished, well-developed patient in no apparent distress. CARDIOVASCULAR: Regular rate and rhythm. RESPIRATORY: No accessory muscle use. Clear to auscultation. Breath sounds equal bilaterally. NEUROLOGICAL: Awake and alert. Motor grossly within normal limits. Ambulatory. Normal speech. 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 Total Self Care Deficit: DCF and case management are involved. Youssef act was lifted by psychiatrist Dandy Walker Malformation and Intellectual Disability: Chronic. Reported mental capacity of [id number]. Hypertension: Amlodipine 10 mg daily. Lisinopril 10 mg po bid. Metoprolol 12.5 q12h with hold parameters. Monitor BP and adjust regimen as needed. Tachycardia: Improved. -Thyroid function is normal. -Baseline EKG with sinus rhythm rate 93; one PAC. T-wave inversion in lead 3 and aVF which is likely normal for age. -Labs reviewed. -Continue metoprolol. DVT Prophylaxis: Low risk, patient ambulating Discharge Planning CM finally heard from patient's father who agreed to fill out application to try to get patient into a intermediate. 06/17/16 Requested [facility] and [facility] to eval for placement. 06/23/16: [facility] visited patient. 06/24/16: I spoke with Johann Bose who states he is working on contract with [facility] and patient will likely be discharged on Wednesday 06/28. Jazmín Meadows Jun 26, 2016 11:37
[2016-06-26 20:43] VITALS: BP 124/70; PULSE 72; RESP 16; TEMP 96.8; O2SAT 98
[2016-06-27 08:00] VITALS: BP 147/80; PULSE 88; RESP 20; TEMP 97.8; O2SAT 96
[2016-06-27] MEDS: LISINOPRIL 10 MG TAB PO SCH ×2 (08:48→20:47)
[2016-06-27] MEDS: METOPROLOL TARTRATE 25 MG TAB PO SCH (08:49)
--- NOTE | 2016-06-27 17:08 | HHI.PR ---
Subjective Remarks Patient seen on unit ambulating. No complaints. Hospital day 86 awaiting placement. Objective Vitals Vital Signs Date Time Temp Pulse Resp B/P Pulse Ox O2 Delivery O2 Flow Rate FiO2 06/27/16 08:00 97.8 88 20 147/80 96 06/26/16 20:43 96.8 72 16 124/70 98 I/O 06/26/16 06/26/16 06/26/16 06/27/16 06/27/16 06/27/16 07:00 15:00 23:00 07:00 15:00 23:00 Intake Total 220 ml 1080 ml Balance 220 ml 1080 ml Intake Oral 220 ml 1080 ml # Voids 1 4 4 # Bowel Movements 0 0 1 Objective Remarks GENERAL: This is a well-nourished, well-developed patient, in no apparent distress. CARDIOVASCULAR: Regular rate and rhythm without murmurs, gallops, or rubs. RESPIRATORY: Clear to auscultation. Breath sounds equal bilaterally. No wheezes , rales, or rhonchi. GASTROINTESTINAL: Abdomen soft, non-tender, nondistended. Normal active bowel sounds MUSCULOSKELETAL: Extremities without clubbing, cyanosis, or edema. 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
[2016-06-27 21:47] VITALS: BP 128/72; PULSE 73; RESP 18; TEMP 98.1; O2SAT 97
[2016-06-28] MEDS: LORazepam 0.5 MG TAB PO PRN (02:47)
[2016-06-28 08:00] VITALS: BP 110/58; PULSE 58; RESP 17; TEMP 98.3; O2SAT 100
--- NOTE | 2016-06-28 09:34 | HHI.PR ---
Subjective Remarks Nurse informs me that the patient slept on the floor of the bathroom across from the nurse's station last night although the patient states he was "good" last night. No acute complaints. No change in clinical status. Objective Vitals Vital Signs Date Time Temp Pulse Resp B/P Pulse Ox O2 Delivery O2 Flow Rate FiO2 06/28/16 08:00 98.3 58 17 110/58 100 06/27/16 21:47 98.1 73 18 128/72 97 I/O 06/27/16 06/27/16 06/27/16 06/28/16 06/28/16 06/28/16 07:00 15:00 23:00 07:00 15:00 23:00 # Voids 4 3 6 # Bowel Movements 1 Objective Remarks GENERAL: Pleasant well-nourished, well-developed patient in no apparent distress. CARDIOVASCULAR: Regular rate and rhythm. RESPIRATORY: No accessory muscle use. Clear to auscultation. Breath sounds equal bilaterally. GASTROINTESTINAL: Abdomen soft, nontender, nondistended. NEUROLOGICAL: Awake and alert. Motor grossly within normal limits. Normal speech. 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 Total Self Care Deficit: DCF and case management are involved. Youssef act was lifted by psychiatrist Dandy Walker Malformation and Intellectual Disability: Chronic. Reported mental capacity of [id number]. Hypertension: Amlodipine 10 mg daily. Lisinopril 10 mg po bid. Metoprolol 12.5 q12h with hold parameters. Monitor BP and adjust regimen as needed. Tachycardia: Improved. -Thyroid function is normal. -Baseline EKG with sinus rhythm rate 93; one PAC. T-wave inversion in lead 3 and aVF which is likely normal for age. -Labs reviewed. -Continue metoprolol. DVT Prophylaxis: Low risk, patient ambulating Discharge Planning CM finally heard from patient's father who agreed to fill out application to try to get patient into a alf. 06/17/16 Requested [facility] and [facility] to eval for placement. 06/23/16: [facility] visited patient. 06/24/16: I spoke with Johann Bose who states he is working on contract with [facility] and patient will likely be discharged on Wednesday 06/28. 06/28/16: I spoke with Johann Bose CM. Patient to be discharged tomorrow, transport to arrive at 1530. I have prepared discharge. CM to take care of prescriptions. 1822 form on chart and signed. Jazmín Meadows Jun 28, 2016 09:34
[2016-06-28] MEDS: METOPROLOL TARTRATE 25 MG TAB PO SCH (09:47)
[2016-06-28] MEDS: LISINOPRIL 10 MG TAB PO SCH ×2 (09:47→20:58)
[2016-06-28 09:48] VITALS: BP 120/76; PULSE 92; RESP 18; O2SAT 96
[2016-06-28] MEDS ORDERED: METO25TA3 PO (16:16)
[2016-06-28] MEDS ORDERED: AMLO10 PO (16:16)
[2016-06-28] MEDS ORDERED: LISI10TA3 PO (16:16)
--- NOTE | 2016-06-28 16:17 | HHI.DCPOC ---
Discharge Care Plan Diagnosis: (1) Dandy Walker malformation (2) Total self-care deficit (3) Tachycardia (4) HTN (hypertension) Goals to Promote Your Health * To prevent worsening of your condition and complications * To maintain your health at the optimal level Directions to Meet Your Goals Take your medications as prescribed Follow your dietary instruction Follow activity as directed Keep your appointments as scheduled Take your immunizations and boosters as scheduled If your symptoms worsen call your PCP, if no PCP go to Urgent Care Center or Emergency Room Smoking is Dangerous to Your Health. Avoid second hand smoke Call the 24-hour hour crisis hotline for domestic abuse at Jazmín Meadows Jun 28, 2016 16:17
[2016-06-28 20:00] VITALS: BP 127/75; PULSE 81; RESP 20; TEMP 96.8; O2SAT 98
[2016-06-29 08:00] VITALS: BP 142/90; PULSE 68; RESP 18; TEMP 97.7; O2SAT 100
[2016-06-29] MEDS: LISINOPRIL 10 MG TAB PO SCH (09:57)
[2016-06-29] MEDS: METOPROLOL TARTRATE 25 MG TAB PO SCH (09:57)
--- NOTE | 2016-06-29 11:16 | HHI.DS ---
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 Patient currently without complaints. Case Management and DCF involved. Per CM notes, pt was recently placed in nursing home, [facility], however per father pt was kicked out after being there for only 8hrs after harassing another resident, however upon further investigation, [facility] reports pt was not kicked out, he simply wandered off the property as facility is unlocked, report Father was dishonest about pt's cognitive ability and [facility] not equipped to care for patient, Father unwilling to care for pt per report. Seen by DCF in ER, however unable to obtain placement. We were asked to admit pending placement as pt here now for almost 24hrs. PE at Discharge GENERAL: Pleasant well-nourished, well-developed patient in no apparent distress. CARDIOVASCULAR: Regular rate and rhythm. RESPIRATORY: No accessory muscle use. Clear to auscultation. Breath sounds equal bilaterally. GASTROINTESTINAL: Abdomen soft, nontender, nondistended. NEUROLOGICAL: Awake and alert. Motor grossly within normal limits. Normal speech. Hospital Course 21-year-old male with Dandy-Walker syndrome, mental retardation who originally brought to the ER under a Youssef act to be placed into a long-term care facility because the patient was found wandering in the streets and unable to care for himself. The patient had no chronic medical illnesses, acute medical illnesses are required any treatment. Patient was only admitted for placement issues. Because of his conditions placement was difficult to be arranged. Patient was transferred to [place] until discharge planning could've been arranged. During the patient's stay in the hospital he was quite pleasant individual. Did not develop any acute illnesses requiring treatment. His blood pressure was managed in medications were adjusted accordingly. Patient has been clinically stable since prior to admission. Case management has found placement for him at this time. Will plan discharge accordingly. Pt Condition on Discharge: Stable Discharge Disposition: [facility] Discharge Time: > 30 minutes Discharge Instructions DIET: Follow Instructions for: Heart Healthy Diet Activities you can perform: Regular-No Restrictions Follow up Referrals: PCP Follow-up - 1 Week New Medications: Amlodipine (Norvasc) 10 Mg Tab 10 MG PO DAILY Blood Pressure Management #30 TAB Lisinopril (Lisinopril) 10 Mg Tab 10 MG PO BID Blood Pressure Management #60 TAB Metoprolol Tartrate (Metoprolol Tartrate) 25 Mg Tab 12.5 MG PO DAILY Hold if HR <60 or SBP <110. tachycardia #15 TAB Yaniv Simmons Jun 29, 2016 11:16
[2016-08-16] MEDS ORDERED: METO25TA3 PO (15:30)
[2016-08-16] MEDS ORDERED: AMLO10 PO (15:30)
[2016-08-16] MEDS ORDERED: LISI10TA3 PO (15:30)
[2016-08-17] MEDS ORDERED: AMLO10 PO (16:37)
[2016-08-17] MEDS ORDERED: METO25TA3 PO (16:37)
[2016-08-17] MEDS ORDERED: LISI10TA3 PO (16:37)
== END 2016-06-29 15:09 ==
LOC: NEPA 21:37 → NEDA 04-02 20:11 → NEPHCDU 04-02 22:16 → NEPFCDU 04-05 22:59 → N05B 04-08 16:41 → PH5A 04-20 16:30
PROVIDERS: ADMIT Hospitalist; ATTEND Hospitalist
DX: Z75.1 Person awaiting admission to adequate facility elsewhere (principal); R41.89 Other symptoms and signs involving cognitive functions and awareness; Q03.1 Atresia of foramina of Magendie and Luschka; F79 Unspecified intellectual disabilities; I10 Essential (primary) hypertension; R00.0 Tachycardia, unspecified; Z91.83 Wandering in diseases classified elsewhere; Z73.89 Other problems related to life management difficulty
CPT/HCPCS: 80048; 84443; 85025; 93005; 99285; G0378; J1630; J2060

== ENCOUNTER 2016-10-09 14:58 | Inpatient (IN) | payer OTHER ==
[~2016-10-09] VITALS: Ht 152.4 cm; Wt 50.9 kg
[~2016-10-09 14:58] MED LIST: AMLO10 PO; LISI10TA3 PO; METO25TA3 PO
[2016-10-09 14:59] VITALS: BP 148/84; PULSE 72; RESP 16; TEMP 98.2; O2SAT 98
--- NOTE | 2016-10-09 15:27 | PD ---
HPI . Increasing agitation Chief Complaint: Psychiatric Symptoms Time Seen by Provider: 15:20 Travel History International Travel<30 days: No Contact w/Intl Traveler<30days: No Traveled to known affect area: No History of Present Illness HPI The patient presents to us with an orthodontic technician assistant from an assisted living facility with the chief complaint of increasing combativeness. The patient is unwilling to assist in his history and physical. The worker states that he has lived there for about 2 months. She states that his behavior has been escalating for the last couple of weeks. PFSH Past Medical History Arthritis: No Blood Disorders: No Anxiety: No Depression: No Heart Rhythm Problems: No Cancer: No Cardiovascular Problems: Yes ("dande walker syndrome" htn) High Cholesterol: No Chest Pain: No Congestive Heart Failure: No Cerebrovascular Accident: No Endocrine: No GERD: No Genitourinary: No Hiatal Hernia: No Immune Disorder: No Musculoskeletal: Yes (DANDY WALKER SYNDROME) Neurologic: Yes (DANDY WALKER SYNDROME) Psychiatric: Yes Reproductive: No Respiratory: No Migraines: No Seizures: No Ulcer: No Social History Alcohol Use: No Tobacco Use: No Substance Use: No Allergies-Medications (Allergen,Severity, Reaction): Coded Allergies: No Known Allergies (Unverified , 10/09/16) Reported Meds & Prescriptions Reported Meds & Active Scripts Active Metoprolol Tartrate 25 Mg Tab 12.5 Mg PO DAILY Hold if HR <60 or SBP <110. Lisinopril 10 Mg Tab 10 Mg PO BID Norvasc (Amlodipine Besylate) 10 Mg Tab 10 Mg PO DAILY Review of Systems ROS Limitations: Refused Physical Exam Narrative GENERAL: Awake and alert and in no acute distress. He is a slightly built man who is in no acute distress. He is refusing to speak. SKIN: Warm and dry. HEAD: Atraumatic. Normocephalic. EYES: Pupils equal and round. Extraocular movements are intact. NECK: Trachea midline. CARDIOVASCULAR: Regular rate and rhythm. RESPIRATORY: No accessory muscle use. MUSCULOSKELETAL: No obvious deformities. No edema. NEUROLOGICAL: Awake and alert. No obvious cranial nerve deficits. Motor grossly within normal limits. PSYCHIATRIC: Unable to assess Data Data Last Documented VS Vital Signs Date Time Temp Pulse Resp B/P Pulse Ox O2 Delivery O2 Flow Rate FiO2 10/09/16 14:59 98.2 72 16 148/84 98 Orders Complete Blood Count With Diff (10/09/16 15:20) Comprehensive Metabolic Panel (10/09/16 15:20) Psych Screen (10/09/16 15:20) Drug Screen, Random Urine (10/09/16 15:20) Alcohol (Ethanol) (10/09/16 15:20) MDM Medical Decision Making Medical Screen Exam Complete: Yes Emergency Medical Condition: Yes Differential Diagnosis Differential diagnosis of psychosis includes but is not limited to schizophrenia , schizoaffective disorder, bipolar disorder, intoxication, substance abuse, dementia Narrative Course This is a patient with a history of Dandy-Walker malformation and hypertension who is brought to us from his assisted living facility for agitation. He will be medically cleared and psychiatry will consult. Diagnosis Primary Impression: Agitation Condition: Stable Netta Sierra MD Oct 09, 2016 15:27
[2016-10-09] MEDS ORDERED: HALOPERIDOL LACTATE 5 MG/ML AMP IM ONE (15:45)
[2016-10-09] MEDS ORDERED: LORazepam 2 MG/ML VIAL IM ONE (16:00)
[2016-10-09 16:25] LABS: AUTOMATED NEUTROPHIL # 9.3 TH/MM3 (1.8-7.7); BASOPHIL % 0.4 % (0.0-2.0); EOSINOPHIL % 0.1 % (0.0-4.0); HEMATOCRIT 45.5 % (39.0-51.0); HEMO FLAGS DIFF FINAL; LYMPH % 19.4 % (9.0-44.0); LYMPHOCYTE # 2.4 TH/MM3 (1.0-4.8); MEAN CORPUSCULAR HEMOGLOBIN 26.3 PG (27.0-34.0); MEAN CORPUSCULAR HGB CONC 32.4 % (32.0-36.0); MONO % 5.9 % (0.0-8.0); NEUT % 74.2 % (16.0-70.0); PLATELET COUNT 183 TH/MM3 (150-450); RED BLOOD COUNT 5.61 MIL/MM3 (4.50-5.90); WHITE BLOOD COUNT 12.5 TH/MM3 (4.0-11.0)
[2016-10-09 16:46] LABS: ALT (GPT) 31 U/L (12-78); ANION GAP 22 MEQ/L (5-15); AST (GOT) 31 U/L (15-37); BICARBONATE 13.6 MEQ/L (21.0-32.0); BLOOD UREA NITROGEN 19 MG/DL (7-18); CHLORIDE 105 MEQ/L (98-107); GLOMERULAR FILTRATION RATE 61 ML/MIN (>89); POTASSIUM 3.5 MEQ/L (3.5-5.1); SODIUM (NA) 141 MEQ/L (136-145)
[2016-10-09 16:49] LABS: ALKALINE PHOSPHATASE 68 U/L (45-117); TOTAL BILIRUBIN ADULT 0.5 MG/DL (0.2-1.0)
[2016-10-09] MEDS ORDERED: SODIUM CHLOR 0.9% 1000 ML INJ 1,000 ML IV ONE ×2 (17:15)
[2016-10-09 18:18] LABS: BLOOD GAS VENOUS BASE EXCESS -3.4 mmol/L (-2-2); BLOOD GAS VENOUS HCO3 22 mmol/L (22-26); BLOOD GAS VENOUS O2 HGB SAT 67 % (70-76); BLOOD GAS VENOUS PCO2 45 mmHg (44-48); BLOOD GAS VENOUS PO2 40 mmHg (35-40); BLOOD GAS VENOUS pH 7.31 (7.360-7.400); TEMP CORR TO 98.6
[2016-10-09 18:19] LABS: CRITICAL VALUE YES; DRAW SITE LINE; FIO2 21 %; STAT YES
[2016-10-09 18:36] LABS: BETA-HYDROXYBUTYRATE 0.17 MMOL/L (0.00-0.39)
[2016-10-09 18:37] LABS: CREATINE KINASE 327 U/L (39-308)
[2016-10-09 18:44] LABS: AMPHETAMINE, URINE NEG (NEG); BARBITURATES, URINE NEG (NEG); COCAINE, URINE NEG (NEG)
[2016-10-09 18:59] LABS: CKMB 2.2 NG/ML (0.5-3.6)
[2016-10-09 19:33] VITALS: BP 139/77; PULSE 70; RESP 16; O2SAT 99
[2016-10-09 20:28] LABS: POTASSIUM 3.2 MEQ/L (3.5-5.1)
--- NOTE | 2016-10-09 21:14 | PD ---
Data Data Last Documented VS Vital Signs Date Time Temp Pulse Resp B/P Pulse Ox O2 Delivery O2 Flow Rate FiO2 10/09/16 19:33 70 16 139/77 99 Room Air 10/09/16 14:59 98.2 Orders Complete Blood Count With Diff (10/09/16 15:20) Comprehensive Metabolic Panel (10/09/16 15:20) Psych Screen (10/09/16 15:20) Drug Screen, Random Urine (10/09/16 15:20) Alcohol (Ethanol) (10/09/16 15:20) Haloperidol Inj (Haldol Inj) (10/09/16 15:45) Restraints Non-Violent ANAMARIA.Q3H (10/09/16 15:39) Lorazepam Inj (Ativan Inj) (10/09/16 16:00) Lactic Acid (10/09/16 17:01) Sodium Chlor 0.9% 1000 Ml Inj (Ns 1000 M (10/09/16 17:15) Sodium Chlor 0.9% 1000 Ml Inj (Ns 1000 M (10/09/16 17:15) Blood Gas Venous (Vbg) (10/09/16 17:01) Beta Hydroxybutyrate (Acetone) (10/09/16 16:05) Creatine Kinase (Cpk) (10/09/16 16:05) Urinalysis - C+S If Indicated (10/09/16 18:28) CKMB (10/09/16 16:05) CKMB% (10/09/16 16:05) Restraints Non-Violent ANAMARIA.Q3H (10/09/16 19:04) Lactic Acid (10/09/16 19:11) Basic Metabolic Panel (Bmp) (10/09/16 19:11) Labs Laboratory Tests Test 10/09/16 10/09/16 10/09/16 10/09/16 16:05 17:18 18:08 18:10 White Blood Count 12.5 TH/MM3 Red Blood Count 5.61 MIL/MM3 Hemoglobin 14.7 GM/DL Hematocrit 45.5 % Mean Corpuscular Volume 81.0 FL Mean Corpuscular Hemoglobin 26.3 PG Mean Corpuscular Hemoglobin 32.4 % Concent Red Cell Distribution Width 13.0 % Platelet Count 183 TH/MM3 Mean Platelet Volume 10.5 FL Neutrophils (%) (Auto) 74.2 % Lymphocytes (%) (Auto) 19.4 % Monocytes (%) (Auto) 5.9 % Eosinophils (%) (Auto) 0.1 % Basophils (%) (Auto) 0.4 % Neutrophils # (Auto) 9.3 TH/MM3 Lymphocytes # (Auto) 2.4 TH/MM3 Monocytes # (Auto) 0.7 TH/MM3 Eosinophils # (Auto) 0.0 TH/MM3 Basophils # (Auto) 0.0 TH/MM3 CBC Comment DIFF FINAL Differential Comment Sodium Level 141 MEQ/L Potassium Level 3.5 MEQ/L Chloride Level 105 MEQ/L Carbon Dioxide Level 13.6 MEQ/L Anion Gap 22 MEQ/L Blood Urea Nitrogen 19 MG/DL Creatinine 1.70 MG/DL Estimat Glomerular Filtration 61 ML/MIN Rate Random Glucose 163 MG/DL Calcium Level 10.0 MG/DL Total Bilirubin 0.5 MG/DL Aspartate Amino Transf 31 U/L (AST/SGOT) Alanine Aminotransferase 31 U/L (ALT/SGPT) Alkaline Phosphatase 68 U/L Total Creatine Kinase 327 U/L Creatine Kinase MB 2.2 NG/ML Creatine Kinase MB % 0.7 % Total Protein 8.4 GM/DL Albumin 4.8 GM/DL Ethyl Alcohol Level LESS THAN 3 MG/DL B-Hydroxybutyrate 0.17 MMOL/L Lactic Acid Level 6.2 mmol/L Blood Gas Puncture Site LINE Blood Gas Patient Temperature 98.6 Venous Blood pH 7.31 Venous Blood Partial Pressure 45 mmHg CO2 Venous Blood Partial Pressure 40 mmHg O2 Venous Blood HCO3 22 mmol/L Venous Blood Oxygen Saturation 67 % Venous Blood Oxygen Content 12.0 Vol % Venous Blood Base Excess -3.4 mmol/L Blood Gas Inspired Oxygen 21 % Urine Opiates Screen NEG Urine Barbiturates Screen NEG Urine Amphetamines Screen NEG Urine Benzodiazepines Screen NEG Urine Cocaine Screen NEG Urine Cannabinoids Screen NEG Test 10/09/16 10/09/16 19:20 19:21 Sodium Level 143 MEQ/L Potassium Level 3.2 MEQ/L Chloride Level 111 MEQ/L Carbon Dioxide Level 23.0 MEQ/L Anion Gap 9 MEQ/L Blood Urea Nitrogen 14 MG/DL Creatinine 1.08 MG/DL Estimat Glomerular Filtration 104 ML/MIN Rate Random Glucose 124 MG/DL Calcium Level 8.1 MG/DL Lactic Acid Level 2.6 mmol/L [facility] Supervised Visit with LORENZA: Yes Narrative Course The history, exam, and medical decision-making in the associated midlevel provider note were completed with my assistance. I reviewed and agree with the findings presented. I attest that I had a [id number] encounter with the patient on the same day, and personally performed and documented my assessment and findings in the medical record. *My assessment and Findings: I took over care of this patient from Dr. Sierra. This patient has a history of developmental delay and lives in a senior living. I spoke to the group program manager and over the past several weeks he's had increasing behavioral disturbance, having broken his computer multiple times, pacing outside in the heat and today they couldn't get him back in and he was being somewhat aggressive with the staff. He is not on any psychiatric medication currently although he has been in the past. Here in the emergency department he evidently was combative with staff and tried to elope several times. had to restrain the patient. I placed him under a Youssef act because on my assessment don't think he can make his own decisions. He will be evaluated by psychiatry in the morning. Initially he appeared quite dehydrated on labs. This may be secondary to heat exposure due to him being outside all day. He was given 2 L of IV fluids and labs were repeated and they were normal. I think he is medically appropriate for psychiatric evaluation. Diagnosis Primary Impression: Agitation Condition: Stable Rama De La Garza MD Oct 09, 2016 21:14
[2016-10-10 01:00] VITALS: BP 127/75; PULSE 66; RESP 16; O2SAT 100
[2016-10-10] MEDS ORDERED: LORazepam 2 MG/ML VIAL IM ONE (01:30)
[2016-10-10] MEDS ORDERED: HALOPERIDOL LACTATE 5 MG/ML AMP IM ONE (01:30)
--- NOTE | 2016-10-10 01:33 | PD ---
Physical Exam Date Seen by Provider: Oct 10, 2016 Time Seen by Provider: 01:31 Narrative GENERAL: This is a well-nourished, well-developed patient, in no apparent distress. SKIN: No rashes, ecchymoses or lesions. Warm and dry. HEAD: Atraumatic. Normocephalic. EYES: PERRL, EOMI, no discharge or injection. No scleral icterus. EARS: Clear NOSE: Nasal turbinates appear normal. THROAT: Mucosa pink and moist. Airway patent. NECK: Trachea midline. supple, moves head freely. LUNGS: Clear to auscultation. CV: Regular in rhythm. ABDOMEN: Soft nontender. EXT: No clubbing cyanosis or edema. Data Data Last Documented VS Vital Signs Date Time Temp Pulse Resp B/P Pulse Ox O2 Delivery O2 Flow Rate FiO2 10/09/16 19:33 70 16 139/77 99 Room Air 10/09/16 14:59 98.2 Orders Complete Blood Count With Diff (10/09/16 15:20) Comprehensive Metabolic Panel (10/09/16 15:20) Psych Screen (10/09/16 15:20) Drug Screen, Random Urine (10/09/16 15:20) Alcohol (Ethanol) (10/09/16 15:20) Haloperidol Inj (Haldol Inj) (10/09/16 15:45) Restraints Non-Violent ANAMARIA.Q3H (10/09/16 15:39) Lorazepam Inj (Ativan Inj) (10/09/16 16:00) Lactic Acid (10/09/16 17:01) Sodium Chlor 0.9% 1000 Ml Inj (Ns 1000 M (10/09/16 17:15) Sodium Chlor 0.9% 1000 Ml Inj (Ns 1000 M (10/09/16 17:15) Blood Gas Venous (Vbg) (10/09/16 17:01) Beta Hydroxybutyrate (Acetone) (10/09/16 16:05) Creatine Kinase (Cpk) (10/09/16 16:05) Urinalysis - C+S If Indicated (10/09/16 18:28) CKMB (10/09/16 16:05) CKMB% (10/09/16 16:05) Restraints Non-Violent ANAMARIA.Q3H (10/09/16 19:04) Lactic Acid (10/09/16 19:11) Basic Metabolic Panel (Bmp) (10/09/16 19:11) Haloperidol Inj (Haldol Inj) (10/10/16 01:30) Lorazepam Inj (Ativan Inj) (10/10/16 01:30) Restraints Non-Violent ANAMARIA.Q3H (10/10/16 01:29) Labs Laboratory Tests Test 10/09/16 10/09/16 10/09/16 10/09/16 16:05 17:18 18:08 18:10 White Blood Count 12.5 TH/MM3 Red Blood Count 5.61 MIL/MM3 Hemoglobin 14.7 GM/DL Hematocrit 45.5 % Mean Corpuscular Volume 81.0 FL Mean Corpuscular Hemoglobin 26.3 PG Mean Corpuscular Hemoglobin 32.4 % Concent Red Cell Distribution Width 13.0 % Platelet Count 183 TH/MM3 Mean Platelet Volume 10.5 FL Neutrophils (%) (Auto) 74.2 % Lymphocytes (%) (Auto) 19.4 % Monocytes (%) (Auto) 5.9 % Eosinophils (%) (Auto) 0.1 % Basophils (%) (Auto) 0.4 % Neutrophils # (Auto) 9.3 TH/MM3 Lymphocytes # (Auto) 2.4 TH/MM3 Monocytes # (Auto) 0.7 TH/MM3 Eosinophils # (Auto) 0.0 TH/MM3 Basophils # (Auto) 0.0 TH/MM3 CBC Comment DIFF FINAL Differential Comment Sodium Level 141 MEQ/L Potassium Level 3.5 MEQ/L Chloride Level 105 MEQ/L Carbon Dioxide Level 13.6 MEQ/L Anion Gap 22 MEQ/L Blood Urea Nitrogen 19 MG/DL Creatinine 1.70 MG/DL Estimat Glomerular Filtration 61 ML/MIN Rate Random Glucose 163 MG/DL Calcium Level 10.0 MG/DL Total Bilirubin 0.5 MG/DL Aspartate Amino Transf 31 U/L (AST/SGOT) Alanine Aminotransferase 31 U/L (ALT/SGPT) Alkaline Phosphatase 68 U/L Total Creatine Kinase 327 U/L Creatine Kinase MB 2.2 NG/ML Creatine Kinase MB % 0.7 % Total Protein 8.4 GM/DL Albumin 4.8 GM/DL Ethyl Alcohol Level LESS THAN 3 MG/DL B-Hydroxybutyrate 0.17 MMOL/L Lactic Acid Level 6.2 mmol/L Blood Gas Puncture Site LINE Blood Gas Patient Temperature 98.6 Venous Blood pH 7.31 Venous Blood Partial Pressure 45 mmHg CO2 Venous Blood Partial Pressure 40 mmHg O2 Venous Blood HCO3 22 mmol/L Venous Blood Oxygen Saturation 67 % Venous Blood Oxygen Content 12.0 Vol % Venous Blood Base Excess -3.4 mmol/L Blood Gas Inspired Oxygen 21 % Urine Opiates Screen NEG Urine Barbiturates Screen NEG Urine Amphetamines Screen NEG Urine Benzodiazepines Screen NEG Urine Cocaine Screen NEG Urine Cannabinoids Screen NEG Test 10/09/16 10/09/16 19:20 19:21 Sodium Level 143 MEQ/L Potassium Level 3.2 MEQ/L Chloride Level 111 MEQ/L Carbon Dioxide Level 23.0 MEQ/L Anion Gap 9 MEQ/L Blood Urea Nitrogen 14 MG/DL Creatinine 1.08 MG/DL Estimat Glomerular Filtration 104 ML/MIN Rate Random Glucose 124 MG/DL Calcium Level 8.1 MG/DL Lactic Acid Level 2.6 mmol/L [facility] Medical Record Reviewed: Yes Supervised Visit with LORENZA: Yes Interpretation(s) Laboratory Tests Test 10/09/16 10/09/16 10/09/16 10/09/16 16:05 17:18 18:08 18:10 White Blood Count 12.5 TH/MM3 Red Blood Count 5.61 MIL/MM3 Hemoglobin 14.7 GM/DL Hematocrit 45.5 % Mean Corpuscular Volume 81.0 FL Mean Corpuscular Hemoglobin 26.3 PG Mean Corpuscular Hemoglobin 32.4 % Concent Red Cell Distribution Width 13.0 % Platelet Count 183 TH/MM3 Mean Platelet Volume 10.5 FL Neutrophils (%) (Auto) 74.2 % Lymphocytes (%) (Auto) 19.4 % Monocytes (%) (Auto) 5.9 % Eosinophils (%) (Auto) 0.1 % Basophils (%) (Auto) 0.4 % Neutrophils # (Auto) 9.3 TH/MM3 Lymphocytes # (Auto) 2.4 TH/MM3 Monocytes # (Auto) 0.7 TH/MM3 Eosinophils # (Auto) 0.0 TH/MM3 Basophils # (Auto) 0.0 TH/MM3 CBC Comment DIFF FINAL Differential Comment Sodium Level 141 MEQ/L Potassium Level 3.5 MEQ/L Chloride Level 105 MEQ/L Carbon Dioxide Level 13.6 MEQ/L Anion Gap 22 MEQ/L Blood Urea Nitrogen 19 MG/DL Creatinine 1.70 MG/DL Estimat Glomerular Filtration 61 ML/MIN Rate Random Glucose 163 MG/DL Calcium Level 10.0 MG/DL Total Bilirubin 0.5 MG/DL Aspartate Amino Transf 31 U/L (AST/SGOT) Alanine Aminotransferase 31 U/L (ALT/SGPT) Alkaline Phosphatase 68 U/L Total Creatine Kinase 327 U/L Creatine Kinase MB 2.2 NG/ML Creatine Kinase MB % 0.7 % Total Protein 8.4 GM/DL Albumin 4.8 GM/DL Ethyl Alcohol Level LESS THAN 3 MG/DL B-Hydroxybutyrate 0.17 MMOL/L Lactic Acid Level 6.2 mmol/L Blood Gas Puncture Site LINE Blood Gas Patient Temperature 98.6 Venous Blood pH 7.31 Venous Blood Partial Pressure 45 mmHg CO2 Venous Blood Partial Pressure 40 mmHg O2 Venous Blood HCO3 22 mmol/L Venous Blood Oxygen Saturation 67 % Venous Blood Oxygen Content 12.0 Vol % Venous Blood Base Excess -3.4 mmol/L Blood Gas Inspired Oxygen 21 % Urine Opiates Screen NEG Urine Barbiturates Screen NEG Urine Amphetamines Screen NEG Urine Benzodiazepines Screen NEG Urine Cocaine Screen NEG Urine Cannabinoids Screen NEG Test 10/09/16 10/09/16 19:20 19:21 Sodium Level 143 MEQ/L Potassium Level 3.2 MEQ/L Chloride Level 111 MEQ/L Carbon Dioxide Level 23.0 MEQ/L Anion Gap 9 MEQ/L Blood Urea Nitrogen 14 MG/DL Creatinine 1.08 MG/DL Estimat Glomerular Filtration 104 ML/MIN Rate Random Glucose 124 MG/DL Calcium Level 8.1 MG/DL Lactic Acid Level 2.6 mmol/L Differential Diagnosis MDM: High Differential diagnoses: Schizophrenia, schizoaffective disorder, bipolar, anxiety, depression, adjustment reaction, mood disorder NOS, ODD, depressive disorder NOS, dementia, dementia with agitation, psychosis NOS, substance induced mood disorder, intermittent explosive disorder, Asperger syndrome, infection,electrolyte abnormality, malingering. Narrative Course Mental health screening discussed with the patient. Psychiatric screen ordered. The patient once again has become more agitated and is disruptive to care. There is concern for patient safety as well as the staff. The patient is not redirectable. The patient is placed back into soft restraints and is given Haldol 5 mg and Ativan 2 mg IM. Diagnosis Primary Impression: Agitation Condition: Stable Ashish Mae Oct 10, 2016 01:33
[2016-10-10 05:00] VITALS: BP 132/81; PULSE 76; RESP 16; O2SAT 98
[2016-10-10 07:31] VITALS: BP 108/58; PULSE 72; RESP 18; O2SAT 99
[2016-10-10 09:31] LABS: BLOOD, URINE SMALL (NEG); COMMENT (UR) CULT NOT INDICATED; CULTURE IF INDICATED CULT NOT INDICATED; GLUCOSE,URINE 150 mg/dL (NEG); KETONE, URINE 10 mg/dL (NEG); MUCUS URINE FEW /lpf (OCC); NITRITE,URINE NEG (NEG); PH, URINE 5.5 (5.0-8.5); SQUAMOUS EPITHELIAL CELL URINE <1 /hpf (0-5); URINE COLOR YELLOW (YELLW/STRAW)
[2016-10-10 10:20] VITALS: BP 126/70; PULSE 113; RESP 20; TEMP 99; O2SAT 100
--- NOTE | 2016-10-10 10:44 | PD ---
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 The staff report increase in agitated behaviors as well as combativeness for the past 2 weeks. . The patient was placed under a BA by ED physician. The BA states " Pt tried to hit ED staff, also became dehydrated by pacing outside all day, unable to make decisions by himself". Patient required restraints as well as ETOs in ED as he was attempting to hit staff. Seen .EMR reviewed. Patient was admitted overnight in 2012 under the care of dr. Ace for psychosis, nos. The patient is seen in main Ed. he is sleepy and remains in restraints. He states " I want to go" Other than that I am unable to obtain any other clinical information. Staff from [facility] have contacted his [facility]. They are willing to have him return there once he is medicated . He had been on medication prior to moving to [facility]. They corroborate the information in terms of his behaviors including being outside yesterday in the sun causing him to become dehydrated. . I called the patient 's NOK - listed as his father at [phone]. Message left for a return call. PFS Past Medical History Arthritis: No Blood Disorders: No Anxiety: No Depression: No Heart Rhythm Problems: Yes (TACHYCARDIA ) Cancer: No Cardiovascular Problems: Yes ("dande walker syndrome" htn) High Cholesterol: No Chest Pain: No Congestive Heart Failure: No Cerebrovascular Accident: No Diminished Hearing: No Endocrine: No GERD: No Genitourinary: No Hiatal Hernia: No Hypertension: Yes Immune Disorder: No Medical other: Yes (MENTAL RETARDATION ) Musculoskeletal: Yes (DANDY WALKER SYNDROME) Neurologic: Yes (DANDY WALKER SYNDROME) Psychiatric: Yes Reproductive: No Respiratory: No Immunizations Current: Yes Migraines: No Seizures: No Ulcer: No Tetanus Vaccination: Unknown Influenza Vaccination: No Past Surgical History Surgical History: Unable to Obtain Psychiatric History Psychiatric History Hx Psychiatric Treatment: YES . Unable to obtain other information History of Inpatient Treatment: Yes Social History Single male. Lives in [facility] Hx Alcohol Use: No Hx Tobacco Use: No Hx Substance Use: No Hx of Substance Use Treatment: No Family Psychiatric History Unknown Allergies-Medications (Allergen,Severity, Reaction): Coded Allergies: No Known Allergies (Unverified , 10/09/16) Reported Meds & Prescriptions Reported Meds & Active Scripts Active Metoprolol Tartrate 25 Mg Tab 12.5 Mg PO DAILY Hold if HR <60 or SBP <110. Lisinopril 10 Mg Tab 10 Mg PO BID Norvasc (Amlodipine Besylate) 10 Mg Tab 10 Mg PO DAILY Review of Systems ROS Limitations: Clinical Condition, Poor Historian Exam Alert: Yes [place]: Person, Place (Knows he is in the hospital) Mood: Calm Affect: Restricted Speech: Clear (low tone. Does not initiate) Eye Contact: None Memory Intact: Comment (not t ested) Hallucinations: Other (does not appear to be responding to ) Suicidal: Ideation (negative) Homicidal: Ideation (negative) Insight/Judgement Nil. Poor MDM Medical Decision Making Medical Record Reviewed: Yes Assessment/Plan 21 year old male with unknown psychiatric history possibly IED and intellectual disability who is under a BA initiated by [facility] ED physician. the patient was sent to ED by [facility] where he resides alleging increase in agitation and combativeness. Patient also stayed outside yesterday pacing in the hot temperature causing him to become dehydrated. the patient at present is not under psychiatric care. At this time it is recommended that he be admitted to inpatient psychiatric unit for further observation, to initiate medications and to maintain his safety. Orders Complete Blood Count With Diff (10/09/16 15:20) Comprehensive Metabolic Panel (10/09/16 15:20) Psych Screen (10/09/16 15:20) Drug Screen, Random Urine (10/09/16 15:20) Alcohol (Ethanol) (10/09/16 15:20) Haloperidol Inj (Haldol Inj) (10/09/16 15:45) Restraints Non-Violent ANAMARIA.Q3H (10/09/16 15:39) Lorazepam Inj (Ativan Inj) (10/09/16 16:00) Lactic Acid (10/09/16 17:01) Sodium Chlor 0.9% 1000 Ml Inj (Ns 1000 M (10/09/16 17:15) Sodium Chlor 0.9% 1000 Ml Inj (Ns 1000 M (10/09/16 17:15) Blood Gas Venous (Vbg) (10/09/16 17:01) Beta Hydroxybutyrate (Acetone) (10/09/16 16:05) Creatine Kinase (Cpk) (10/09/16 16:05) Urinalysis - C+S If Indicated (10/09/16 18:28) CKMB (10/09/16 16:05) CKMB% (10/09/16 16:05) Restraints Non-Violent ANAMARIA.Q3H (10/09/16 19:04) Lactic Acid (10/09/16 19:11) Basic Metabolic Panel (Bmp) (10/09/16 19:11) Haloperidol Inj (Haldol Inj) (10/10/16 01:30) Lorazepam Inj (Ativan Inj) (10/10/16 01:30) Restraints Non-Violent ANAMARIA.Q3H (10/10/16 01:29) Admit Order (Ed Use Only) (10/10/16 ) Admit To Inpatient Psych (10/10/16 ) Code Status (10/10/16 10:39) Vital Signs (Adult) ANAMARIA.Q12H.E (10/10/16 10:39) Activity Oob Ad Caroline (10/10/16 10:39) Level Of Observation (Psych) (10/10/16 10:39) Acetaminophen (Tylenol) (10/10/16 10:45) Magnesium Hydroxide Liq (Milk Of Magnesi (10/10/16 10:45) Al-Mag Hy-Si 40-40-4 Mg/Ml Liq (Mag-Al P (10/10/16 10:45) Basic Metabolic Panel (Bmp) (10/11/16 06:00) Lipid Profile (10/11/16 06:00) Hemoglobin (Hgb) A1c (10/11/16 06:00) Amlodipine (Norvasc) (10/11/16 09:00) Lisinopril (Prinivil) (10/10/16 21:00) Metoprolol Tartrate (Lopressor) (10/11/16 09:00) Results Vital Signs Date Time Temp Pulse Resp B/P Pulse Ox O2 Delivery O2 Flow Rate FiO2 10/10/16 07:31 72 18 108/58 99 Room Air 10/10/16 05:00 76 16 132/81 98 Room Air 10/10/16 01:00 66 16 127/75 100 Room Air 10/09/16 19:33 70 16 139/77 99 Room Air 10/09/16 14:59 98.2 72 16 148/84 98 Laboratory Tests Test 10/09/16 10/09/16 10/09/16 10/09/16 16:05 17:18 18:08 18:10 White Blood Count 12.5 Red Blood Count 5.61 Hemoglobin 14.7 Hematocrit 45.5 Mean Corpuscular Volume 81.0 Mean Corpuscular Hemoglobin 26.3 Mean Corpuscular Hemoglobin 32.4 Concent Red Cell Distribution Width 13.0 Platelet Count 183 Mean Platelet Volume 10.5 Neutrophils (%) (Auto) 74.2 Lymphocytes (%) (Auto) 19.4 Monocytes (%) (Auto) 5.9 Eosinophils (%) (Auto) 0.1 Basophils (%) (Auto) 0.4 Neutrophils # (Auto) 9.3 Lymphocytes # (Auto) 2.4 Monocytes # (Auto) 0.7 Eosinophils # (Auto) 0.0 Basophils # (Auto) 0.0 CBC Comment DIFF FINAL Differential Comment Sodium Level 141 Potassium Level 3.5 Chloride Level 105 Carbon Dioxide Level 13.6 Anion Gap 22 Blood Urea Nitrogen 19 Creatinine 1.70 Estimat Glomerular Filtration 61 Rate Random Glucose 163 Calcium Level 10.0 Total Bilirubin 0.5 Aspartate Amino Transf 31 (AST/SGOT) Alanine Aminotransferase 31 (ALT/SGPT) Alkaline Phosphatase 68 Total Creatine Kinase 327 Creatine Kinase MB 2.2 Creatine Kinase MB % 0.7 Total Protein 8.4 Albumin 4.8 Ethyl Alcohol Level LESS THAN 3 B-Hydroxybutyrate 0.17 Lactic Acid Level 6.2 Blood Gas Puncture Site LINE Blood Gas Patient Temperature 98.6 Venous Blood pH 7.31 Venous Blood Partial Pressure 45 CO2 Venous Blood Partial Pressure 40 O2 Venous Blood HCO3 22 Venous Blood Oxygen Saturation 67 Venous Blood Oxygen Content 12.0 Venous Blood Base Excess -3.4 Blood Gas Inspired Oxygen 21 Urine Opiates Screen NEG Urine Barbiturates Screen NEG Urine Amphetamines Screen NEG Urine Benzodiazepines Screen NEG Urine Cocaine Screen NEG Urine Cannabinoids Screen NEG Test 10/09/16 10/09/16 10/10/16 19:20 19:21 08:15 Sodium Level 143 Potassium Level 3.2 Chloride Level 111 Carbon Dioxide Level 23.0 Anion Gap 9 Blood Urea Nitrogen 14 Creatinine 1.08 Estimat Glomerular Filtration 104 Rate Random Glucose 124 Calcium Level 8.1 Lactic Acid Level 2.6 Urine Color YELLOW Urine Turbidity CLEAR Urine pH 5.5 Urine Specific Freeman 1.016 Urine Protein TRACE Urine Glucose (UA) 150 Urine Ketones 10 Urine Occult Blood SMALL Urine Nitrite NEG Urine Bilirubin NEG Urine Urobilinogen LESS THAN 2.0 Urine Leukocyte Esterase NEG Urine WBC 3 Urine Squamous Epithelial <1 Cells Urine Mucus FEW Microscopic Urinalysis Comment CULT NOT INDICATED Diagnosis Primary Impression: Agitation Additional Impressions: Intermittent explosive disorder Intellectual disability Admitting Information Admitting Physician Requests: Admit Condition: Stable Problem Qualifiers Anita Read [facility] Oct 10, 2016 10:44
[2016-10-10] MEDS ORDERED: ALUMINUM/MAGNESIUM/SIMETH 30 ML CUP PO PRN (10:45)
[2016-10-10] MEDS ORDERED: ACETAMINOPHEN 325 MG TAB PO PRN (10:45)
[2016-10-10] MEDS ORDERED: MAGNESIUM HYDROXIDE SUSP 30 ML CUP PO PRN (10:45)
[2016-10-10] MEDS: LISINOPRIL 10 MG TAB PO SCH (21:01)
[2016-10-11 06:10] VITALS: BP 138/63; PULSE 112; RESP 17; TEMP 98.2; O2SAT 97
[2016-10-11] MEDS ORDERED: diphenhydrAMINE HCL 50 MG/ML VIAL ONE (08:03)
[2016-10-11 08:16] VITALS: BP 138/75; PULSE 144; RESP 22; TEMP 98.6; O2SAT 98
[2016-10-11] MEDS: LISINOPRIL 10 MG TAB PO SCH ×2 (08:18→20:34)
[2016-10-11] MEDS ORDERED: diphenhydrAMINE HCL 50 MG/ML VIAL IM ONE (08:30)
[2016-10-11] MEDS ORDERED: diphenhydrAMINE HCL 50 MG CAP PO ONE (08:30)
[2016-10-11] MEDS ORDERED: METOPROLOL TARTRATE 25 MG TAB PO SCH (09:00)
[2016-10-11 09:41] LABS: ANION GAP 17 MEQ/L (5-15); BICARBONATE 20.4 MEQ/L (21.0-32.0); BLOOD UREA NITROGEN 13 MG/DL (7-18); CHLORIDE 104 MEQ/L (98-107); GLOMERULAR FILTRATION RATE 77 ML/MIN (>89); POTASSIUM 3.2 MEQ/L (3.5-5.1); SODIUM (NA) 141 MEQ/L (136-145)
[2016-10-11 09:51] LABS: HDL CHOLESTEROL 61.7 MG/DL (40.0-60.0); LDL CHOLESTEROL 112 MG/DL (0-99)
--- NOTE | 2016-10-11 10:14 | HHI.HP ---
Provisional Diagnosis Admission Date Oct 10, 2016 at 10:43 [place] I. 1. Adjustment disorder, unspecified [place] II. 1. Intellectual disability [place] III. History of Dandy-Walker syndrome [place] V. GAF is 25 presently Certification of Person's Competence To Provide Express and Informed Consent I have personally examined Elia Cabello , a person being served at [facility] on, Oct 11, 2016 10:14. Express and informed consent means consent voluntarily given in writing, by a competent person, after sufficient explanation and disclosure of the subject matter involved to enable the person to make a knowing and willful decision without any element of force, fraud, deceit, duress, or other form of constraint or coercion. This person is 18 years of age or older, is not now known to be incompetent to consent to treatment with a guardian advocate, and does not have a health care surrogate or proxy currently making medical treatment decisions. I have found this person to be one of the following: [] Competent to provide express and informed consent, as defined above, for voluntary admission to this facility and is competent to provide express and informed consent for treatment. He/she has the consistent capacity to make well reasoned, willful, and knowing decisions concerning his or her medical or mental health treatment. The person fully and consistently understands the purpose of the admission for examination/placement and is fully capable of personally exercising all rights assured [place] [x] Incompetent to provide express and informed consent to voluntary admission, and this is incompetent to provide express and informed consent to treatment. The person must be transferred to involuntary status and a petition for a guardian advocate filed with the Circuit Court. [] Refusing to provide express and informed consent to voluntary admission but is competent to provide express and informed consent for treatment. The person must be discharged or transferred to involuntary status. Form shall be completed within 24 hours of a person's arrival at the receiving facility and filed in the clinical record of each person: 1. Admitted on a voluntary basis 2. Permitted to provide express and informed consent to his/her own treatment 3. Allowed to transfer from involuntary to voluntary status 4. Prior to permitting a person to consent to his or her own treatment after having been previously found incompetent to consent to treatment. History of Present Illness Capacity: Lacks Capacity HPI Mr. 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 Patient was apparently somewhat dehydrated on presentation here and was noted to be combative and required ETO's. He was Youssef acted by the ED provider. He was evaluated by the psychiatric nurse practitioner who recommended admission to the inpatient psychiatric unit. Patient seen and examined. Chart reviewed. Case discussed with nursing staff. I was called by the nurse this morning because the patient was noted to be somewhat stiff, diaphoretic and tachycardic but not febrile. He had received Haldol ETOs the two previous days. I ordered him medicated with Benadryl IM to good effect. At the time of my evaluation, the patient is calm. He is neither diaphoretic nor stiff. He is sitting on the floor of his room. When I inquire why he has come into the hospital he says "I don't know." He answers in this fashion to many questions. He denies any suicidal or homicidal ideation. He denies any audiovisual hallucinations. He asks "can you get a laptop for me." Otherwise, he offers nothing in the interview. Psychiatric interview is somewhat limited because of his degree of intellectual disability, and I am unable to obtain any meaningful past psychiatric, family, chemical dependency or social history from this patient at this time for this reason. I did endeavor to review the paper chart for records from his assisted living facility but besides a medication administration record, I see nothing from the facility. Review of Systems ROS Limitations: Poor Historian Except as stated in HPI: all other systems reviewed are Neg Past Psych History Psychological trauma history Unknown Violence risk - others (6 mos) Likely chronically unpredictable as a consequence of his intellectual disability. Patient was reportedly agitated in the ED but was also noted to be dehydrated at that time. He is presently calm and denies homicidal ideation. Violence risk - self (6 mos) Likely lower imminent risk. Denies suicidal ideation. Substance Abuse History Drugs/Alcohol past 12 months See above Past Family Social History Coded Allergies: No Known Allergies (Unverified , 10/09/16) Past Medical History See electronic medical record Active Scripts Metoprolol Tartrate 25 Mg Tab12.5 Mg PO DAILY #15 TAB Ref 6 Hold if HR <60 or SBP <110. Prov:Juliann Sanchez MD 08/17/16 Lisinopril 10 Mg Tab10 Mg PO BID #180 TAB Ref 1 Prov:Juliann Sanchez MD 08/17/16 Amlodipine (Norvasc)10 Mg Tab10 Mg PO DAILY #90 TAB Ref 1 Prov:Juliann Sanchez MD 08/17/16 Current Medications Medications (Trade) Dose Ordered Sig/Carol Route Start Time Stop Time Status Last Admin (Tylenol) 650 mg Q4H PRN PO 10/10/16 10:45 (Milk Of Magnesia Liq) 30 ml DAILY PRN PO 10/10/16 10:45 (Mag-Al Plus Susp Liq) 30 ml Q6H PRN PO 10/10/16 10:45 (Norvasc) 10 mg DAILY PO 10/11/16 09:00 10/11/16 08:18 (Prinivil) 10 mg BID PO 10/10/16 21:00 10/11/16 08:18 (Lopressor) 12.5 mg DAILY PO 10/11/16 09:00 10/11/16 08:18 Family History See above Social History See above Patient's Strengths (min. 2) In a monitored setting. Retains some verbal fluency. Physical Exam Physical examination completed by ED provider. On my evaluation today, the patient appears to be in no acute physical distress. No hand tremor, no dystonia, no dyskinesia noted. No other motoric abnormalities noted. No diaphoresis noted. Laboratories and vital signs reviewed: Vital Signs Vital Signs Date Time Temp Pulse Resp B/P Pulse Ox O2 Delivery O2 Flow Rate FiO2 10/11/16 08:16 98.6 144 22 138/75 98 10/10/16 07:31 Room Air Lab Results Item Value Date Time White Blood Count 12.5 TH/MM3 H 10/09/16 1605 Hemoglobin 14.7 GM/DL 10/09/16 1605 Platelet Count 183 TH/MM3 10/09/16 1605 Sodium Level 141 MEQ/L 10/11/16 0809 Potassium Level 3.2 MEQ/L L 10/11/16 0809 Chloride Level 104 MEQ/L 10/11/16 0809 Carbon Dioxide Level 20.4 MEQ/L L 10/11/16 0809 Blood Urea Nitrogen 13 MG/DL 10/11/16 0809 Creatinine 1.40 MG/DL H 10/11/16 0809 Random Glucose 187 MG/DL H 10/11/16 0809 Lactic Acid Level 2.6 mmol/L H 10/09/16 1921 Aspartate Amino Transf (AST/SGOT) 31 U/L 10/09/16 1605 Alanine Aminotransferase (ALT/SGPT) 31 U/L 10/09/16 1605 Alkaline Phosphatase 68 U/L 10/09/16 1605 Total Creatine Kinase 327 U/L H 10/09/16 1605 Urine Opiates Screen NEG 10/09/16 1810 Urine Barbiturates Screen NEG 10/09/16 1810 Urine Amphetamines Screen NEG 10/09/16 1810 Urine Benzodiazepines Screen NEG 10/09/16 1810 Urine Cocaine Screen NEG 10/09/16 1810 Urine Cannabinoids Screen NEG 10/09/16 1810 Ethyl Alcohol Level LESS THAN 3 MG/DL 10/09/16 1605 EKG sinus tach with QTc 418ms. Mental Status Examination Patient is in hospital gown. He is somewhat disheveled but maintaining basic hygiene. He is awake and alert and oriented to person at least. No abnormal motor movements noted. Speech is somewhat halting but otherwise within normal limits for tone and volume. Language and fund of knowledge seem reduced. Affect somewhat blunted. Thought process slow. No teresita delusions. Denies audiovisual hallucinations. Denies suicidal or homicidal ideation. Insight and judgment are poor. Assessment & Plan Problem List: (1) Adjustment disorder ICD Code: F43.20 (2) Intellectual disability ICD Code: F79 Assessment & Plan This is a 21-year-old male with psychiatric history as detailed above who is presently admitted to the inpatient psychiatric unit under a Youssef act. On my examination today, patient is presently calm. Patient was noted to be somewhat dehydrated on arrival, and it is possible that his presenting agitation was secondary to delirium from this. Patient also became somewhat diaphoretic and stiff this morning following administration of antipsychotics among other agents over the last several days, although these symptoms responded briskly to Benadryl IM. Given that there is no ongoing agitation, I will plan to observe the patient on the unit for a time off of scheduled psychotropics. Admit inpatient. Involuntary status. I've completed first opinion. Consult for second opinion. Request healthcare surrogate and guardian advocate. Check a CBC, CMP, CK and magnesium in the morning. Replete potassium now. Ativan as needed for anxiety, Benadryl as needed for EPS/sleep. Consult of the hospitalist. Vitals every shift. Counselor to see. Disposition planning. Estimated length of stay: 5-7 days. Discharge Planning Return to facility following outcome of observation. Request HC Surrog/Guard Advoc?: Yes Problem Qualifiers (1) Adjustment disorder: Qualified Code: F43.20 - Adjustment disorder, unspecified type Manjit Babin MD Oct 11, 2016 10:14
[2016-10-11 10:23] VITALS: BP 119/63; PULSE 103; RESP 22; TEMP 99.2; O2SAT 98
[2016-10-11] MEDS ORDERED: POTASSIUM CHLORIDE 10 MEQ CONTROLLED RELEASE TAB PO ONE (15:00)
[2016-10-11 15:04] VITALS: BP 124/73; PULSE 93; RESP 18; TEMP 99.8; O2SAT 100
[2016-10-11] MEDS ORDERED: LORazepam 1 MG TAB PO PRN (15:15)
[2016-10-11] MEDS ORDERED: diphenhydrAMINE HCL 50 MG CAP PO PRN (15:15)
[2016-10-11] MEDS ORDERED: LORazepam 2 MG/ML VIAL IM PRN (15:15)
[2016-10-11] MEDS ORDERED: diphenhydrAMINE HCL 50 MG/ML VIAL IM PRN (15:15)
[2016-10-11 15:18] LABS: HEMOGLOBIN A1a 0.9 %; HEMOGLOBIN A1b 0.8 %; HEMOGLOBIN Ao 84.2 %; HEMOGLOBIN F 1.2 %; HEMOGLOBIN LA1C 2.4 %; HEMOGLOBIN P3 3.8 %
--- NOTE | 2016-10-11 17:28 | PD.CONS ---
HPI Service [facility] Hospitalists Consult Requested By Psychiatric service Reason for Consult Medical management Primary Care Physician No Primary Care Physician Diagnoses: History of Present Illness Written by Kanchan Chapin PA-C acting as scribe for Dr. Hollingsworth on 10/11/16 at 17:05. This is a 21-year-old male with past medical history of Dandy Walker malformation, 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 Patient was Youssef acted by the ED provider and is now been admitted to the psychiatric unit. Hospitalist services have been consulted for medical management. Given patient's intellectual disability, history is obtained from discussion with the patient directly as well as review of the previous computerized medical record. Patient seen and examined today. Per the nursing staff, patient was very stiff, diaphoretic and tachycardic earlier this morning. His heart rate was 144. Temp 99.8. Patient reports he had some difficulty breathing last night but has no breathing complaints now. He appears comfortable. Patient asked several times when he can leave and when he can get his laptop. He answers "I don't know" to the majority of the questions asked of him. He denies any chest pain or abdominal pain. He denies any voiding difficulties. Review of Systems Except as stated in HPI: all other systems reviewed are Neg Past Family Social History Allergies: Coded Allergies: No Known Allergies (Unverified , 10/09/16) Past Medical History Review of medical record reveals past medical history of hypertension, Dandy Walker malformation and mental retardation Past Surgical History None Reported Medications Metoprolol Tartrate 25 Mg Tab 12.5 Mg PO DAILY Hold if HR <60 or SBP <110. Lisinopril 10 Mg Tab 10 Mg PO BID Norvasc (Amlodipine Besylate) 10 Mg Tab 10 Mg PO DAILY Active Ordered Medications Current Medications Medications (Trade) Dose Ordered Sig/Carol Route Start Time Stop Time Status Last Admin (Tylenol) 650 mg Q4H PRN PO 10/10/16 10:45 (Milk Of Magnesia Liq) 30 ml DAILY PRN PO 10/10/16 10:45 (Mag-Al Plus Susp Liq) 30 ml Q6H PRN PO 10/10/16 10:45 (Norvasc) 10 mg DAILY PO 10/11/16 09:00 10/11/16 08:18 (Prinivil) 10 mg BID PO 10/10/16 21:00 10/11/16 08:18 (Lopressor) 12.5 mg DAILY PO 10/11/16 09:00 10/11/16 08:18 (Ativan) 1 mg Q6H PRN PO 10/11/16 15:15 (Ativan Inj) 1 mg Q6H PRN IM 10/11/16 15:15 (Benadryl) 50 mg Q6H PRN PO 10/11/16 15:15 (Benadryl Inj) 50 mg Q6H PRN IM 10/11/16 15:15 Family History No h/o DM or CAD per medical record review Social History Negative for tobacco, alcohol or drugs per review of medical record Physical Exam Vital Signs Vital Signs Date Time Temp Pulse Resp B/P Pulse Ox O2 Delivery O2 Flow Rate FiO2 10/11/16 15:04 99.8 93 18 124/73 100 10/11/16 10:23 99.2 103 22 119/63 98 10/11/16 08:16 98.6 144 22 138/75 98 10/11/16 06:10 98.2 112 17 138/63 97 Physical Exam GENERAL: This is a well-nourished, well-developed young male, in no apparent distress. Awake and alert. SKIN: No rashes, ecchymoses or lesions. Cool and dry. HEAD: Atraumatic. Normocephalic. No temporal or scalp tenderness. EYES: Pupils equal round and reactive. Extraocular motions intact. No scleral icterus. No injection or drainage. ENT: Nose without bleeding, purulent drainage or septal hematoma. Throat without erythema, tonsillar hypertrophy or exudate. Uvula midline. Airway patent. NECK: Trachea midline. No lymphadenopathy. Supple, nontender, no meningeal signs. CARDIOVASCULAR: Tachycardic without murmurs, gallops, or rubs. RESPIRATORY: Clear to auscultation. Breath sounds equal bilaterally. No wheezes , rales, or rhonchi. GASTROINTESTINAL: Abdomen soft, non-tender, nondistended. No hepato-splenomegaly , or palpable masses. No guarding. MUSCULOSKELETAL: Extremities without clubbing, cyanosis, or edema. No joint tenderness, effusion, or edema noted. No calf tenderness. NEUROLOGICAL: Awake and alert. Intellectually disabled. Oriented to self only. Able to move all extremities. Motor and sensory grossly within normal limits. Slow, monosyllabic speech. Laboratory Laboratory Tests Test 10/11/16 08:09 Sodium Level 141 Potassium Level 3.2 Chloride Level 104 Carbon Dioxide Level 20.4 Anion Gap 17 Blood Urea Nitrogen 13 Creatinine 1.40 Estimat Glomerular Filtration 77 Rate Random Glucose 187 Calcium Level 10.0 Triglycerides Level 68 Cholesterol Level 187 LDL Cholesterol 112 HDL Cholesterol 61.7 Cholesterol/HDL Ratio 3.03 Result Diagram: 10/09/16 1605 10/11/16 0809 Assessment and Plan Assessment and Plan 21-year-old male with past medical history of Dandy Walker malformation, 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 Patient was Youssef acted by the ED provider and is now been admitted to the psychiatric unit. Hospitalist services have been consulted for medical management. Adjustment disorder - Management per psychiatric team Dandy Walker Malformation Mental retardation secondary to above - Chronic - Review of medical record reveals patient has the mental capacity of 8-10 year-old. - total self care deficit Tachycardia Hypertension Episode of diaphoresis and rigidity Elevated lactic acid - questionable seizure activity, NMS - HR improved - continue antihypertensive regimen - EKG reviewed, sinus tach - obtain CK - order EEG - monitor BP and adjust tx accordingly Hypokalemia - treated with repletion - am labs to monitor response JOSHUA - suspect due to poor po intake/hypovolemia - encourage fluids - avoid nephrotoxic agents - am labs to monitor trend DVT prophylaxis - Patient is ambulatory This note was transcribed by kristina Chapin. I, Dr. Xavier Hollingsworth personally performed the history, physical exam, and medical decision making; and confirmed the accuracy of the information in the transcribed note. Authenticated by Dr. Xavier Hollingsworth on 10/11/16 at 18:30. Kanchan Chapin Oct 11, 2016 17:28 Xavier Hollingsworth DO Oct 11, 2016 18:31
[2016-10-11 18:00] VITALS: BP 154/83; PULSE 94; RESP 18; TEMP 97.4; O2SAT 98
[2016-10-11 22:15] LABS: BASOPHIL % 0.1 % (0.0-2.0); HEMATOCRIT 42.5 % (39.0-51.0); HEMO FLAGS DIFF FINAL; LYMPH % 11.3 % (9.0-44.0); LYMPHOCYTE # 1.8 TH/MM3 (1.0-4.8); MEAN CORPUSCULAR HEMOGLOBIN 25.5 PG (27.0-34.0); MEAN CORPUSCULAR HGB CONC 32.3 % (32.0-36.0); MONO % 7.8 % (0.0-8.0); NEUT % 80.8 % (16.0-70.0); PLATELET COUNT 155 TH/MM3 (150-450); RED BLOOD COUNT 5.38 MIL/MM3 (4.50-5.90); RED CELL DISTRIBUTION WIDTH 12.9 % (11.6-17.2); WHITE BLOOD COUNT 16.1 TH/MM3 (4.0-11.0)
[2016-10-11 22:30] LABS: CKMB 47.3 NG/ML (0.5-3.6)
[2016-10-12 06:01] VITALS: BP 122/64; PULSE 102; RESP 18; TEMP 99; O2SAT 100
--- NOTE | 2016-10-12 07:40 | EKG ---
Date Performed: 10/11/2016 Time Performed: 08:47:59 PTAGE: 21 years EKG: SINUS TACHYCARDIA electrical interferences ABNORMAL ECG PREVIOUS TRACING : 05/15/2016 14.08 DOCTOR: Fidel Ku Interpretating Date/Time 10/12/2016 07:39:11
--- NOTE | 2016-10-12 08:31 | HHI.DS ---
Psychiatry Discharge Summary Inpatient Psychiatric care?: Yes Advance Directive: No Reason Not Provided: Due to Patient Condition Mental Health AdvanceDirective: No Health Care Proxy: No Admission Admission Date Oct 10, 2016 at 10:43 Admission Diagnosis: (1) Adjustment disorder ICD Code: F43.20 (2) Intellectual disability ICD Code: F79 Brief History Mr. 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 Patient was apparently somewhat dehydrated on presentation here and was noted to be combative and required ETO's. He was Youssef acted by the ED provider. He was evaluated by the psychiatric nurse practitioner who recommended admission to the inpatient psychiatric unit. Patient seen and examined. Chart reviewed. Case discussed with nursing staff. I was called by the nurse this morning because the patient was noted to be somewhat stiff, diaphoretic and tachycardic but not febrile. He had received Haldol ETOs the two previous days. I ordered him medicated with Benadryl IM to good effect. At the time of my evaluation, the patient is calm. He is neither diaphoretic nor stiff. He is sitting on the floor of his room. When I inquire why he has come into the hospital he says "I don't know." He answers in this fashion to many questions. He denies any suicidal or homicidal ideation. He denies any audiovisual hallucinations. He asks "can you get a laptop for me." Otherwise, he offers nothing in the interview. Psychiatric interview is somewhat limited because of his degree of intellectual disability, and I am unable to obtain any meaningful past psychiatric, family, chemical dependency or social history from this patient at this time for this reason. I did endeavor to review the paper chart for records from his assisted living facility but besides a medication administration record, I see nothing from the facility. Tobacco Use In Past 30 Days: Cigars and/or Pipe Daily Alcohol Use: Never Hospital Course Patient was admitted to a locked, inpatient psychiatric unit. A general medical consultation was obtained. Appropriate precautions were in place throughout patient's hospital stay. Patient was noted to be dehydrated in the emergency department and did receive some IV fluids while he was there. As part of initial laboratory workup on the inpatient psychiatric unit, the patient was found to have significantly elevated CK, concern for rhabdomyolysis. I have discussed the case with Dr. Hollingsworth who recommends admission to medical bed with telemetry for IVF and monitoring. On the day of discharge: Patient seen and examined with Dr. Hollingsworth. Chart reviewed. Last dose of Haldol was 10/10 at 01:45. Case discussed with RN. On my examination today, patient appears to be in no acute physical distress. He is presently calm. He is ambulating around the unit with a steady gait. He remains quite childlike. He is oriented to person and [place]. No evidence of psychosis or severely decompensated mood episode. He offers no physical complaints. He remains quite discharge focused. Patient will be discharged from the inpatient psychiatric unit today to allow for transfer to the medical unit for further management of elevated CK. My suspicion is that this elevated CK represents ongoing severe dehydration as was noted at initial presentation, although he did receive 2 doses of Haldol and so NMS must be in the differential. Results Blood Pressure 122 / 64 Vital Signs Date Time Temp Pulse Resp B/P Pulse Ox O2 Delivery O2 Flow Rate FiO2 10/12/16 06:01 99.0 102 18 122/64 100 10/10/16 07:31 Room Air Laboratory Tests Test 10/09/16 10/09/16 10/09/16 10/09/16 16:05 17:18 18:08 19:20 White Blood Count 12.5 TH/MM3 (4.0-11.0) Mean Corpuscular Hemoglobin 26.3 PG (27.0-34.0) Neutrophils (%) (Auto) 74.2 % (16.0-70.0) Neutrophils # (Auto) 9.3 TH/MM3 (1.8-7.7) Carbon Dioxide Level 13.6 MEQ/L (21.0-32.0) Anion Gap 22 MEQ/L (5-15) Blood Urea Nitrogen 19 MG/DL (7-18) Creatinine 1.70 MG/DL (0.60-1.30) Estimat Glomerular Filtration 61 ML/MIN (>89) Rate Random Glucose 163 MG/DL 124 MG/DL (74-106) (74-106) Total Creatine Kinase 327 U/L (39-308) Total Protein 8.4 GM/DL (6.4-8.2) Lactic Acid Level 6.2 mmol/L (0.4-2.0) Venous Blood pH 7.31 (7.360-7.400) Venous Blood Oxygen Saturation 67 % (70-76) Venous Blood Base Excess -3.4 mmol/L (-2-2) Potassium Level 3.2 MEQ/L (3.5-5.1) Chloride Level 111 MEQ/L (98-107) Calcium Level 8.1 MG/DL (8.5-10.1) Test 10/09/16 10/10/16 10/11/16 10/11/16 19:21 08:15 08:09 21:25 Lactic Acid Level 2.6 mmol/L (0.4-2.0) Urine Glucose (UA) 150 mg/dL (NEG) Urine Ketones 10 mg/dL (NEG) Urine Occult Blood SMALL (NEG) Urine Mucus FEW /lpf (OCC) Potassium Level 3.2 MEQ/L (3.5-5.1) Carbon Dioxide Level 20.4 MEQ/L (21.0-32.0) Anion Gap 17 MEQ/L (5-15) Creatinine 1.40 MG/DL (0.60-1.30) Estimat Glomerular Filtration 77 ML/MIN (>89) Rate Random Glucose 187 MG/DL (74-106) Total Creatine Kinase 69450 U/L (39-308) Creatine Kinase MB 47.3 NG/ML (0.5-3.6) LDL Cholesterol 112 MG/DL (0-99) HDL Cholesterol 61.7 MG/DL (40.0-60.0) White Blood Count 16.1 TH/MM3 (4.0-11.0) Mean Corpuscular Volume 79.0 FL (80.0-100.0) Mean Corpuscular Hemoglobin 25.5 PG (27.0-34.0) Neutrophils (%) (Auto) 80.8 % (16.0-70.0) Neutrophils # (Auto) 13.0 TH/MM3 (1.8-7.7) Monocytes # (Auto) 1.3 TH/MM3 (0-0.9) Laboratory Results Test 10/11/16 08:09 Hemoglobin A1c 5.6 % (4.3-6.0) Triglycerides Level 68 MG/DL (42-150) Cholesterol Level 187 MG/DL (120-200) LDL Cholesterol 112 MG/DL (0-99) HDL Cholesterol 61.7 MG/DL (40.0-60.0) Summary of Procedures None done Imaging None done Pending results at discharge: No Medications # of Antipsychotic meds at D/C: 0 Approp Antipsych med options 1 - Minimum of three failed multiple trials of monotherapy. 2 - Documented plan to taper to monotherapy due to previous use of multiple meds OR cross-taper in progress at D/C. 3 - Documentation of augmentation of Clozapine. 4 - Justification other than those listed in allowable values 1-3, document here : Discharge Discharge Date: Oct 12, 2016 Discharge Diagnosis: (1) Adjustment disorder Diagnosis: Principal ICD Code: F43.20 (2) Intellectual disability Diagnosis: Secondary ICD Code: F79 Mental Status Exam at Disch Patient is in hospital gown. He is fairly well groomed. He is awake and alert and oriented to person and hospital at least. No motor abnormalities noted. No tremor, no dystonia, no dyskinesia. Steady gait and station. Paucity of speech although he is able to answer questions appropriately. Affect quite childlike. Paucity of thought. No teresita delusions. No AVH. No SI or HI. Insight and judgment are poor. Pt Condition on Discharge: Guarded Discharge Disposition: Disch to Another Hospital Discharge Instructions Diet Instructions: As Tolerated, No Restrictions Activities you can perform: Weight Bearing as [place] Scheduled Appointment: transfer to medical floor Continued Medications: Amlodipine (Norvasc) 10 Mg Tab 10 MG PO DAILY Blood Pressure Management #90 Ref 1 TAB Lisinopril (Lisinopril) 10 Mg Tab 10 MG PO BID Blood Pressure Management #180 Ref 1 TAB Metoprolol Tartrate (Metoprolol Tartrate) 25 Mg Tab 12.5 MG PO DAILY Hold if HR <60 or SBP <110. tachycardia #15 Ref 6 TAB Discharge Time <= 30 minutes Discharge/Advance Care Plan Health Problems: (1) Adjustment disorder (2) Intellectual disability Goals to promote your health * To prevent worsening of your condition and complications * To maintain your health at the optimal level Directions to meet your goals Take your medications as prescribed Follow your dietary instruction Follow activity as directed Keep your appointments as scheduled Take your immunizations and boosters as scheduled If your symptoms worsen call your PCP, if no PCP go to Urgent Care Center or Emergency Room For 08/11 questions related to your inpatient stay or results of tests pending at discharge, please contact Dr. Manjit Babin at Smoking is Dangerous to Your Health. Avoid second hand smoking Problem Qualifiers (1) Adjustment disorder: Qualified Code: F43.20 - Adjustment disorder, unspecified type Manjit Babin MD Oct 12, 2016 08:31
[2016-10-12 08:57] LABS: AUTOMATED NEUTROPHIL # 9.6 TH/MM3 (1.8-7.7); BASOPHIL % 0.1 % (0.0-2.0); HEMO FLAGS DIFF FINAL; LYMPH % 14.6 % (9.0-44.0); LYMPHOCYTE # 1.8 TH/MM3 (1.0-4.8); MEAN CELL VOLUME 79.1 FL (80.0-100.0); MEAN CORPUSCULAR HEMOGLOBIN 25.7 PG (27.0-34.0); MEAN CORPUSCULAR HGB CONC 32.4 % (32.0-36.0); MONO % 6.5 % (0.0-8.0); NEUT % 78.8 % (16.0-70.0); PLATELET COUNT 162 TH/MM3 (150-450); RED BLOOD COUNT 5.43 MIL/MM3 (4.50-5.90); RED CELL DISTRIBUTION WIDTH 13.2 % (11.6-17.2); WHITE BLOOD COUNT 12.2 TH/MM3 (4.0-11.0)
[2016-10-12 10:03] LABS: BICARBONATE 30.8 MEQ/L (21.0-32.0); MAGNESIUM 2.1 MG/DL (1.5-2.5); POTASSIUM 3.6 MEQ/L (3.5-5.1)
--- NOTE | 2016-10-12 10:31 | HHI.PR ---
Subjective Remarks Follow-up visit tachycardia, increase CK, increase WBC. Spoke with Dr. Ventura, patient CK >36,000. Patient seen and examined today. States he is okay. Requesting to have his laptop and to go home. Discussed With patient results of the labs. He hasn't been hydrating well. Denies pain and discomfort. Denies SOB/ dyspnea. Denies chest pain, palpitations, headaches, dizziness. Denies fevers, chills, n/v/d. Denies dysuria. The patient was ambulating the hallways. He had no acute complaints. He kept requesting his laptop. Discussed with psychiatrist. Objective Vitals Vital Signs Date Time Temp Pulse Resp B/P Pulse Ox O2 Delivery O2 Flow Rate FiO2 10/12/16 06:01 99.0 102 18 122/64 100 10/11/16 18:00 97.4 94 18 154/83 98 10/11/16 15:04 99.8 93 18 124/73 100 10/11/16 10:23 99.2 103 22 119/63 98 Result Diagram: 10/12/16 0815 10/12/16 0815 Objective Remarks GENERAL: This is a well-nourished, well-developed patient, in no apparent distress. SKIN: Warm and dry HEENT: Normocephalic. Pupils equal round and reactive. Nose without bleeding. Airway patent. NECK: Trachea midline. No JVD. Supple. CARDIOVASCULAR: Tachycardia without murmurs, gallops, or rubs. RESPIRATORY: Clear to auscultation. Breath sounds equal bilaterally. No wheezes , rales, or rhonchi. GASTROINTESTINAL: Abdomen soft, non-tender, nondistended. Bowel Sounds normoactive x4. : Voiding without difficulty. MUSCULOSKELETAL: Extremities without clubbing, cyanosis, or edema. NEUROLOGICAL: Awake and alert. Oriented to person, place. Moves all extremities. Normal speech. No distress Breathing comfortably No gross neurological deficits Calm No LE edema Medications and IVs Current Medications Medications (Trade) Dose Ordered Sig/Carol Route Start Time Stop Time Status Last Admin (Tylenol) 650 mg Q4H PRN PO 10/10/16 10:45 (Milk Of Magnesia Liq) 30 ml DAILY PRN PO 10/10/16 10:45 (Mag-Al Plus Susp Liq) 30 ml Q6H PRN PO 10/10/16 10:45 (Norvasc) 10 mg DAILY PO 10/11/16 09:00 10/11/16 08:18 (Prinivil) 10 mg BID PO 10/10/16 21:00 10/11/16 20:34 (Lopressor) 12.5 mg DAILY PO 10/11/16 09:00 10/11/16 08:18 (Ativan) 1 mg Q6H PRN PO 10/11/16 15:15 10/11/16 17:05 (Ativan Inj) 1 mg Q6H PRN IM 10/11/16 15:15 (Benadryl) 50 mg Q6H PRN PO 10/11/16 15:15 10/12/16 00:55 Diphenhydramine HCl 50 mg 50 mg Q6H PRN IM 10/11/16 15:15 (NS 1000 ml Inj) 1,000 ml @ 150 mls/hr Q6H40M IV 10/12/16 17:00 10/12/16 16:37 (Heparin Inj) 5,000 units Q12H SQ 10/12/16 17:00 10/12/16 16:37 (Ativan Inj) 1 mg Q2H PRN IV 10/12/16 16:30 A/P Problem List: (1) Adjustment disorder with mixed disturbance of emotions and conduct ICD Code: F43.25 Status: Acute (2) Intellectual disability ICD Code: F79 Status: Chronic (3) HTN (hypertension) ICD Code: I10 Status: Chronic (4) Tachycardia ICD Code: R00.0 Status: Acute (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 Patient was Youssef acted by the ED provider and is now been admitted to the psychiatric unit. Hospitalist services have been consulted for medical management. Adjustment disorder - Management by psychiatry team Psychiatry reconsulted Dandy Walker Malformation Mental retardation secondary to above - Chronic - Review of medical record reveals patient has the mental capacity of 8-10 year-old. - total self care [place] [address], CKMB 47.3 - IVF hydration - questionable seizure activity, NMS - Trend CK - Transfer to medical floor telemetry CK significantly elevated. The patient will be transferred to the floor for IV fluid hydration and monitoring of electrolytes and renal status. Creatinine improved. Panculture. Monitor neurological status. Supportive care. SIRS, Sepsis, unknown source Tachycardia, WBC 12.2 Episode of diaphoresis and rigidity Elevated lactic acid - CXR ordered, Blood cultures x2, UA/CS - check lactic acid, procalcitonin - EKG reviewed, sinus tach - IV fluid hydration - Recheck labs CBC, BMP in am - Transfer to medical floor telemetry for closer monitoring Panculture. Trend labs including CPK and lactic acid level. Antibiotics if indicated. Hypokalemia - Potassium 50MEQ effervesce - Recheck labs in am JOSHUA - suspect due to poor po intake/hypovolemia - encourage fluids - avoid nephrotoxic agents - IVF hydration - Repeat labs DVT prophylaxis - ambulatory Discussed with patient, nursing, Dr. Babin, Dr. Hollingsworth Attending Statement The exam, history, and the medical decision-making described in the above note were completed with the assistance of the mid-level provider. I reviewed and agree with the findings presented. I attest that I had a [id number] encounter with the patient on the same day, and personally performed and documented my assessment and findings in the medical record. Maranda Powell Oct 12, 2016 10:31 Xavier Hollingsworth DO Oct 12, 2016 17:33
[2016-10-12 12:39] LABS: CKMB 17.6 NG/ML (0.5-3.6)
[2016-10-12 14:45] VITALS: BP 133/84; PULSE 76; RESP 17; TEMP 97.3; O2SAT 100
[2016-10-12 16:00] VITALS: BP 144/88; PULSE 82; RESP 18; TEMP 98.6; O2SAT 98
[2016-10-12] MEDS ORDERED: LORazepam 2 MG/ML VIAL IV PRN (16:30)
[2016-10-12] MEDS ORDERED: POTASSIUM CHLORIDE 25 MEQ EFFERVESCENT TAB PO ONE (16:30)
--- NOTE | 2016-10-12 16:43 | RADRPT ---
EXAM DATE/TIME: 10/12/2016 16:01 [place] COMPARISON: No previous studies available for comparison. INDICATIONS : Fever. Increase white blood count. MEDICAL HISTORY : None. SURGICAL HISTORY : None. ENCOUNTER: Initial ACUITY: 1 day PAIN SCORE: 0/10 LOCATION: Bilateral chest FINDINGS: A single view of the chest demonstrates the lungs to be symmetrically aerated without evidence of mas s, infiltrate or effusion. The cardiomediastinal contours are unremarkable. Scoliosis of the thoraco lumbar spine is noted. CONCLUSION: No acute focal pulmonary infiltrate. Scoliosis of the thoracolumbar spine. Ajay Hinds MD on October 12, 2016 at 16:40 Board Certified Radiologist. This report was verified electronically.
[2016-10-12] MEDS ORDERED: SODIUM CHLOR 0.9% 1000 ML INJ 1,000 ML IV SCH (17:00)
[2016-10-12] MEDS ORDERED: HEPARIN SODIUM - SQ 10,000 UNITS/ML VIAL SQ SCH (17:00)
[2016-10-12 19:56] LABS: AUTOMATED NEUTROPHIL # 6.3 TH/MM3 (1.8-7.7); BASOPHIL % 0.3 % (0.0-2.0); EOSINOPHIL % 0.1 % (0.0-4.0); HEMATOCRIT 42.5 % (39.0-51.0); HEMO FLAGS DIFF FINAL; LYMPH % 20.2 % (9.0-44.0); LYMPHOCYTE # 1.8 TH/MM3 (1.0-4.8); MEAN CELL VOLUME 78.6 FL (80.0-100.0); MEAN CORPUSCULAR HGB CONC 33.1 % (32.0-36.0); MONO % 7.2 % (0.0-8.0); NEUT % 72.2 % (16.0-70.0); PLATELET COUNT 160 TH/MM3 (150-450); RED CELL DISTRIBUTION WIDTH 13.1 % (11.6-17.2); WHITE BLOOD COUNT 8.7 TH/MM3 (4.0-11.0)
[2016-10-12 20:50] LABS: ALKALINE PHOSPHATASE 52 U/L (45-117); ALT (GPT) 128 U/L (12-78); ANION GAP 6 MEQ/L (5-15); AST (GOT) 473 U/L (15-37); BICARBONATE 27.7 MEQ/L (21.0-32.0); BLOOD UREA NITROGEN 15 MG/DL (7-18); CHLORIDE 104 MEQ/L (98-107); GLOMERULAR FILTRATION RATE 112 ML/MIN (>89); POTASSIUM 3.4 MEQ/L (3.5-5.1); SODIUM (NA) 138 MEQ/L (136-145); TOTAL BILIRUBIN ADULT 0.4 MG/DL (0.2-1.0)
[2016-10-12 21:20] LABS: CREATINE KINASE 30002 U/L (39-308)
--- NOTE | 2016-10-12 21:25 | MG ---
cc: KALYAN CHAVEZ M.D. Lab No: Date: 10/12/16 Age: 21 Sex: M Race: REQUESTING PHYSICIAN Dr. Chapin An EEG was obtained on this 21-year-old patient with history of being evaluated for combativeness and Dandy Walker syndrome. MEDICATIONS 1. Lisinopril. 2. Lopressor. 3. Norvasc. 4. Benadryl. The patient is described as awake during the study. There is 8-10 per second alpha rhythms centrally and posteriorly. There are beta rhythms centrally and frontally. The background is reactive. There is a bilateral driving response to photic stimulation. The patient drowses and there are some theta rhythms. Hyperventilation produced no significant change. Overall, there is some intermixed theta activity with the alpha background during wakefulness. INTERPRETATION This is a minimally abnormal EEG because of some intermixed theta activity with the alpha background during wakefulness but no epileptiform features present. No lateralizing features present. Possible mild diffuse disturbance of cerebral function to correlate with this finding. Kalyan Chavez MD OFC/EO /7:13 PM /9:16 PM
[2016-10-12 22:15] LABS: CKMB 14.8 NG/ML (0.5-3.6)
== END 2016-10-12 14:30 | disposition short-term general hospital (02) | DRG 882 ==
LOC: NEPD 14:58 → H270 10-10 10:43 → UNDODISIN 10-12 08:30 → N07A 10-12 14:43 → H270 10-12 14:43
PROVIDERS: ADMIT Psychiatry & Neurology Psychiatry; ATTEND Psychiatry & Neurology Psychiatry
DX: F43.20 Adjustment disorder, unspecified (principal); N17.9 Acute kidney failure, unspecified; M62.82 Rhabdomyolysis; Z78.1 Physical restraint status; F79 Unspecified intellectual disabilities; I10 Essential (primary) hypertension; E86.0 Dehydration; Q03.1 Atresia of foramina of Magendie and Luschka; R00.0 Tachycardia, unspecified; E87.6 Hypokalemia
CPT/HCPCS: 71010; 76937; 80048; 80053; 80061; 80307; 81001; 82010; 82550; 82552; 82805; 83036; 83605; 83735; 85025; 87040; 93005; 95819; 96360; 96372; J1200; J1630; J1644; J2060; J7030; Q0163

== ENCOUNTER 2016-10-12 08:57 | Inpatient (IN) | payer SELFPAY ==
[~2016-10-12] VITALS: Ht 149.9 cm; Wt 52.5 kg
[2016-10-12 20:00] VITALS: BP 133/85; PULSE 94; RESP 20; TEMP 97.7; O2SAT 98
[2016-10-12] MEDS ORDERED: POTASSIUM CHLORIDE 25 MEQ EFFERVESCENT TAB PO ONE (21:15)
[2016-10-12] MEDS ORDERED: LORazepam 2 MG/ML VIAL IV PRN (21:15)
[2016-10-12] MEDS: SODIUM CHLOR 0.9% 1000 ML INJ 1,000 ML IV SCH (22:03)
[2016-10-12] MEDS: HEPARIN SODIUM - SQ 10,000 UNITS/ML VIAL SQ SCH (22:28)
[2016-10-13] VITALS: BP 151/96; PULSE 77; RESP 20; TEMP 97.1; O2SAT 100
[2016-10-13] MEDS: SODIUM CHLOR 0.9% 1000 ML INJ 1,000 ML IV SCH ×4 (04:22→21:32)
[2016-10-13 06:07] LABS: AUTOMATED NEUTROPHIL # 5.1 TH/MM3 (1.8-7.7); BASOPHIL % 0.2 % (0.0-2.0); EOSINOPHIL % 0.2 % (0.0-4.0); HEMO FLAGS DIFF FINAL; LYMPH % 20.3 % (9.0-44.0); LYMPHOCYTE # 1.5 TH/MM3 (1.0-4.8); MEAN CELL VOLUME 77.9 FL (80.0-100.0); MEAN CORPUSCULAR HEMOGLOBIN 26.4 PG (27.0-34.0); MEAN CORPUSCULAR HGB CONC 33.9 % (32.0-36.0); MONO % 8.8 % (0.0-8.0); NEUT % 70.5 % (16.0-70.0); PLATELET COUNT 145 TH/MM3 (150-450); RED BLOOD COUNT 4.75 MIL/MM3 (4.50-5.90); RED CELL DISTRIBUTION WIDTH 12.8 % (11.6-17.2); WHITE BLOOD COUNT 7.2 TH/MM3 (4.0-11.0)
[2016-10-13 06:38] LABS: INDIRECT BILIRUBIN 0.2 MG/DL (0.0-0.8); TOTAL BILIRUBIN ADULT 0.3 MG/DL (0.2-1.0)
[2016-10-13 06:56] LABS: BLOOD, URINE TRACE (NEG); CALCIUM OXALATE CRYSTALS,URINE MOD /hpf; COMMENT (UR) CULT NOT INDICATED; CULTURE IF INDICATED CULT NOT INDICATED; GLUCOSE,URINE TRACE mg/dL (NEG); KETONE, URINE NEG (NEG); MUCUS URINE MANY /lpf (OCC); NITRITE,URINE NEG (NEG); SQUAMOUS EPITHELIAL CELL URINE <1 /hpf (0-5); URINE COLOR YELLOW (YELLW/STRAW)
[2016-10-13 08:00] VITALS: BP 132/80; PULSE 69; RESP 18; TEMP 97.3; O2SAT 100
[2016-10-13] MEDS: HEPARIN SODIUM - SQ 10,000 UNITS/ML VIAL SQ SCH ×2 (08:37→21:31)
[2016-10-13] MEDS ORDERED: SENNOSIDES 8.6 MG TAB PO PRN (08:45)
[2016-10-13] MEDS ORDERED: SODIUM CHLORIDE 0.9% FLUSH 10 ML FLUSH IV FLUSH PRN (08:45)
[2016-10-13] MEDS ORDERED: MAGNESIUM HYDROXIDE SUSP 30 ML CUP PO PRN (08:45)
[2016-10-13] MEDS ORDERED: ACETAMINOPHEN 325 MG TAB PO PRN ×2 (08:45)
[2016-10-13] MEDS ORDERED: NALOXONE HCL 0.4 MG/ML AMP IV PRN (08:45)
[2016-10-13] MEDS: SODIUM CHLORIDE 0.9% FLUSH 10 ML FLUSH IV FLUSH SCH ×2 (08:48→20:59)
[2016-10-13] MEDS: DOCUSATE SODIUM 50 MG/SENNA 8.6 MG TAB PO SCH ×2 (08:52→21:31)
[2016-10-13 10:32] VITALS: PULSE 78
[2016-10-13 10:54] LABS: POTASSIUM 3.7 MEQ/L (3.5-5.1)
--- NOTE | 2016-10-13 10:59 | HHI.PYPN ---
Subjective Remarks Patient is seen today for psychiatric evaluation, he is found in the computer area of the medical floor watching Youtube videos, patient said that he loves music, he says he feels okay, denies depression, doesn't elaborate about feelings and emotions, he doesn't know the reason his in the hospital, as a very concrete thought processes, denies suicidal and homicidal ideation, denies visual and auditory hallucinations. Compliant with medications, no agitation or aggressive behavior reported. Review of Systems Other No somatic complaints Objective Alert: Yes [place]: Person, Place Mood: Calm Affect: Restricted Memory Intact: Immediate, Recent Hallucinations: Other (patient denies perceptual disturbances) Delusions: No Delusion Type: Other (not elicited) Suicidal: Ideation (he denies) Homicidal: Ideation (no HI) Insight/Judgment poor Labs Test 10/13/16 10/13/16 05:05 06:00 White Blood Count 7.2 TH/MM3 Red Blood Count 4.75 MIL/MM3 Hemoglobin 12.6 GM/DL Hematocrit 37.0 % Mean Corpuscular Volume 77.9 FL Mean Corpuscular Hemoglobin 26.4 PG Mean Corpuscular Hemoglobin 33.9 % Concent Red Cell Distribution Width 12.8 % Platelet Count 145 TH/MM3 Mean Platelet Volume 10.4 FL Neutrophils (%) (Auto) 70.5 % Lymphocytes (%) (Auto) 20.3 % Monocytes (%) (Auto) 8.8 % Eosinophils (%) (Auto) 0.2 % Basophils (%) (Auto) 0.2 % Neutrophils # (Auto) 5.1 TH/MM3 Lymphocytes # (Auto) 1.5 TH/MM3 Monocytes # (Auto) 0.6 TH/MM3 Eosinophils # (Auto) 0.0 TH/MM3 Basophils # (Auto) 0.0 TH/MM3 CBC Comment DIFF FINAL Differential Comment Total Bilirubin 0.3 MG/DL Direct Bilirubin 0.1 MG/DL Indirect Bilirubin 0.2 MG/DL Aspartate Amino Transf 334 U/L (AST/SGOT) Alanine Aminotransferase 103 U/L (ALT/SGPT) Alkaline Phosphatase 43 U/L Total Protein 5.8 GM/DL Albumin 3.3 GM/DL Urine Color YELLOW Urine Turbidity CLEAR Urine pH 6.0 Urine Specific [facility] 1.029 Urine Protein 30 mg/dL Urine Glucose (UA) TRACE mg/dL Urine Ketones NEG mg/dL Urine Occult Blood TRACE Urine Nitrite NEG Urine Bilirubin NEG Urine Urobilinogen LESS THAN 2.0 MG/DL Urine Leukocyte Esterase NEG Urine RBC 2 /hpf Urine WBC 1 /hpf Urine Squamous Epithelial <1 /hpf Cells Urine Calcium Oxalate Crystals MOD /hpf Urine Mucus MANY /lpf Microscopic Urinalysis Comment CULT NOT INDICATED Vitals/IOs Vital Signs Date Time Temp Pulse Resp B/P Pulse Ox O2 Delivery O2 Flow Rate FiO2 10/13/16 10:32 78 10/13/16 08:00 97.3 18 132/80 100 Intake and Output 10/12/16 10/12/16 10/13/16 08:00 16:00 00:00 Intake Total 540 ml Balance 540 ml Assessment & Plan Problem List: (1) Adjustment disorder with mixed disturbance of emotions and conduct Assessment & Plan: At the moment of this evaluation patient is to be at baseline, no agitation, no aggressive behavior observed or reported, he denies suicidal and homicidal ideation, he denies visual and auditory hallucinations. I communicated with Dr. Babin was pressed the idea that recent episode of aggressive behavior and agitation in his residential facility could be related with delirium. Patient does not meet criteria for psychiatric admission at this moment, patient can be discharged to his residential facility once medically clear. ICD Code: F43.25 Assessment & Plan Estimated LOS: days Justification for Cont. Inpt. Patient does not meet criteria for psychiatric admission at this moment. Ryan Schmitt MD Oct 13, 2016 10:59
[2016-10-13 12:00] VITALS: BP 139/84; PULSE 69; RESP 18; TEMP 96.9; O2SAT 99
--- NOTE | 2016-10-13 12:47 | HHI.HP ---
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 Patient was Youssef acted by the ED provider and is now been admitted to the psychiatric unit. Hospitalist services have been consulted for medical management. Given patient's intellectual disability, history is obtained from discussion with the patient directly as well as review of the previous computerized medical record. Per the nursing staff, patient was very stiff, diaphoretic and tachycardic. His heart rate was 144. Temp 99.8. Patient reports he has no breathing complaints now. He appears comfortable. The patient was transferred from psychiatry secondary to elevated CK-MB levels around 36,000. The patient was started on IV fluids, supportive care and monitored. He denies any complaints. He has been ambulating around the halls without difficulty. He is tolerating a diet. He denies any aches or pains. He does say he has not been having any bowel movements. He says that his laptop is broken. He denies any shortness of breath. He says he is drinking plenty of fluids. Review of Systems ROS Limitations: Clinical Condition, Poor Historian Except as stated in HPI: all other systems reviewed are Neg Past Family Social History Past Medical History Hypertension Dandy Walker Malformation Allergies: Coded Allergies: No Known Allergies (Unverified , 10/09/16) Active Ordered Medications Current Medications Medications (Trade) Dose Ordered Sig/Carol Route Start Time Stop Time Status Last Admin (NS 1000 ml Inj) 1,000 ml @ 150 mls/hr Q6H40M IV 10/12/16 21:15 10/13/16 08:40 (Heparin Inj) 5,000 units Q12HR SQ 10/12/16 21:00 10/13/16 08:37 (Ativan Inj) 1 mg Q2H PRN IV 10/12/16 21:15 (NS Flush) 2 ml UNSCH PRN IV FLUSH 10/13/16 08:45 (NS Flush) 2 ml BID IV FLUSH 10/13/16 09:00 (Tylenol) 650 mg Q4H PRN PO 10/13/16 08:45 (Tylenol) 650 mg Q6H PRN PO 10/13/16 08:45 (Narcan Inj) 0.4 mg UNSCH PRN IV 10/13/16 08:45 (Barbara-Colace) 1 tab BID PO 10/13/16 09:00 10/13/16 08:52 (Milk Of Magnjaneen Liq) 30 ml Q12H PRN PO 10/13/16 08:45 (Senokot) 17.2 mg Q12H PRN PO 10/13/16 08:45 Family History Unable to obtain Social History Denies Physical Exam Vital Signs Vital Signs Date Time Temp Pulse Resp B/P Pulse Ox O2 Delivery O2 Flow Rate FiO2 10/13/16 10:32 78 10/13/16 08:00 97.3 69 18 132/80 100 10/13/16 00:00 97.1 77 20 151/96 100 10/12/16 20:00 97.7 94 20 133/85 98 Physical Exam GENERAL: This is a well-nourished, well-developed patient, in no apparent distress. SKIN: Warm and dry HEENT: Normocephalic. Pupils equal round and reactive. Nose without bleeding. Airway patent. NECK: Trachea midline. No JVD. Supple. CARDIOVASCULAR: Regular rate and rhythm without murmurs, gallops or rubs. RESPIRATORY: Clear to auscultation. Breath sounds equal bilaterally. No wheezes , rales, or rhonchi. GASTROINTESTINAL: Abdomen soft, non-tender, nondistended. Bowel Sounds normoactive x4. : Voiding without difficulty. MUSCULOSKELETAL: Extremities without clubbing, cyanosis, or edema. NEUROLOGICAL: Awake and alert. Oriented to person, place. Moves all extremities. Normal speech. PSYCH: Calm. Laboratory Laboratory Tests Test 10/13/16 10/13/16 10/13/16 05:05 06:00 09:24 White Blood Count 7.2 Red Blood Count 4.75 Hemoglobin 12.6 Hematocrit 37.0 Mean Corpuscular Volume 77.9 Mean Corpuscular Hemoglobin 26.4 Mean Corpuscular Hemoglobin 33.9 Concent Red Cell Distribution Width 12.8 Platelet Count 145 Mean Platelet Volume 10.4 Neutrophils (%) (Auto) 70.5 Lymphocytes (%) (Auto) 20.3 Monocytes (%) (Auto) 8.8 Eosinophils (%) (Auto) 0.2 Basophils (%) (Auto) 0.2 Neutrophils # (Auto) 5.1 Lymphocytes # (Auto) 1.5 Monocytes # (Auto) 0.6 Eosinophils # (Auto) 0.0 Basophils # (Auto) 0.0 CBC Comment DIFF FINAL Differential Comment Total Bilirubin 0.3 Direct Bilirubin 0.1 Indirect Bilirubin 0.2 Aspartate Amino Transf 334 (AST/SGOT) Alanine Aminotransferase 103 (ALT/SGPT) Alkaline Phosphatase 43 Total Protein 5.8 Albumin 3.3 Urine Color YELLOW Urine Turbidity CLEAR Urine pH 6.0 Urine Specific [place] 1.029 Urine Protein 30 Urine Glucose (UA) TRACE Urine Ketones NEG Urine Occult Blood TRACE Urine Nitrite NEG Urine Bilirubin NEG Urine Urobilinogen LESS THAN 2.0 Urine Leukocyte Esterase NEG Urine RBC 2 Urine WBC 1 Urine Squamous Epithelial <1 Cells Urine Calcium Oxalate Crystals MOD Urine Mucus MANY Microscopic Urinalysis Comment CULT NOT INDICATED Sodium Level 142 Potassium Level 3.7 Chloride Level 105 Carbon Dioxide Level 33.0 Anion Gap 4 Blood Urea Nitrogen 12 Creatinine 0.81 Estimat Glomerular Filtration 144 Rate Random Glucose 82 Calcium Level 8.6 Total Creatine Kinase Result Diagram: 10/13/16 0505 10/13/16 0924 Imaging Last Impressions Chest X-Ray 10/12/16 0000 Signed Impressions: Service Date/Time: Wednesday, October 12, 2016 16:01 - CONCLUSION: No acute focal pulmonary infiltrate. Scoliosis of the thoracolumbar spine. 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 Patient was Youssef acted by the ED provider and is now been admitted to the psychiatric unit. Hospitalist services have been consulted for medical management. Adjustment disorder Calm at this time. - Management by psychiatry team. - Psychiatry reconsulted. Dandy Walker Malformation Chronic. [place] [address]. Improved with IVF hydration. Questionable seizure activity, NMS. - Trend CK. - IVFs. - EEG. - avoid neuroleptics.CK significantly elevated. ARF S/t rhabdo. Improved with fluids. - continue fluids. - monitor. Acute hepatitis S/t rhabdo. Improving. - monitor LFTs. SIRS Tachycardic, WBC 12.2. No source. Elevated lactic acid. CXR unremarkable. - IV fluid hydration. - follow cultures. DVT prophylaxis: Heparin Code Status Full Discussed Condition With Pt Physician Certification 2 Midnight Certification Type: Admission for Inpatient Services Order for Inpatient Services The services are ordered in accordance with Medicare regulations or non- Medicare payer requirements, as applicable. In the case of services not specified as inpatient-only, they are appropriately provided as inpatient services in accordance with the 2-midnight benchmark. Estimated LOS (days): 2 days is the estimated time the patient will need to remain in the hospital, assuming treatment plan goals are met and no additional complications. Post-Hospital Plan: Not yet determined Xavier Hollingsworth DO Oct 13, 2016 12:47 Xavier Hollingsworth DO Oct 13, 2016 12:47
[2016-10-13 12:50] LABS: CKMB 15.2 NG/ML (0.5-3.6)
[2016-10-13 20:00] VITALS: BP 123/82; PULSE 60; RESP 18; TEMP 98.3; O2SAT 99
[2016-10-13 22:46] LABS: CKMB 17.6 NG/ML (0.5-3.6)
[2016-10-14] VITALS (7 sets, daily range): BP systolic 138–173; BP diastolic 78–96; PULSE 55–65; RESP 17–20; TEMP 96.8–98.3; O2SAT 96–100
[2016-10-14 03:37] LABS: BASOPHIL % 0.5 % (0.0-2.0); EOSINOPHIL % 0.6 % (0.0-4.0); HEMATOCRIT 36.6 % (39.0-51.0); HEMO FLAGS DIFF FINAL; LYMPH % 32.7 % (9.0-44.0); LYMPHOCYTE # 1.7 TH/MM3 (1.0-4.8); MEAN CELL VOLUME 78.2 FL (80.0-100.0); MEAN CORPUSCULAR HEMOGLOBIN 26.2 PG (27.0-34.0); MEAN CORPUSCULAR HGB CONC 33.5 % (32.0-36.0); MONO % 8.5 % (0.0-8.0); NEUT % 57.7 % (16.0-70.0); PLATELET COUNT 146 TH/MM3 (150-450); RED BLOOD COUNT 4.68 MIL/MM3 (4.50-5.90); WHITE BLOOD COUNT 5.1 TH/MM3 (4.0-11.0)
[2016-10-14 03:52] LABS: ALT (GPT) 111 U/L (12-78); ANION GAP 5 MEQ/L (5-15); AST (GOT) 256 U/L (15-37); BICARBONATE 30.8 MEQ/L (21.0-32.0); BLOOD UREA NITROGEN 7 MG/DL (7-18); CHLORIDE 106 MEQ/L (98-107); GLOMERULAR FILTRATION RATE 158 ML/MIN (>89); POTASSIUM 3.6 MEQ/L (3.5-5.1); SODIUM (NA) 142 MEQ/L (136-145)
[2016-10-14 03:55] LABS: ALKALINE PHOSPHATASE 44 U/L (45-117); TOTAL BILIRUBIN ADULT 0.3 MG/DL (0.2-1.0)
[2016-10-14 04:47] LABS: CKMB 18.2 NG/ML (0.5-3.6)
[2016-10-14] MEDS: SODIUM CHLOR 0.9% 1000 ML INJ 1,000 ML IV SCH ×3 (06:35→19:55)
--- NOTE | 2016-10-14 08:00 | EKG ---
Date Performed: 10/13/2016 Time Performed: 16:38:24 PTAGE: 21 years EKG: SINUS BRADYCARDIA WITH SHORT MA INTERVAL BORDERLINE ECG PREVIOUS TRACING : 10/11/2016 08.47 DOCTOR: Henry Chun Interpretating Date/Time 10/14/2016 07:55:27
[2016-10-14] MEDS: DOCUSATE SODIUM 50 MG/SENNA 8.6 MG TAB PO SCH ×2 (09:00→21:00)
[2016-10-14] MEDS: SODIUM CHLORIDE 0.9% FLUSH 10 ML FLUSH IV FLUSH SCH ×2 (09:00→21:00)
[2016-10-14] MEDS: HEPARIN SODIUM - SQ 10,000 UNITS/ML VIAL SQ SCH ×2 (10:35→21:00)
[2016-10-14 12:53] LABS: CKMB 19.9 NG/ML (0.5-3.6)
--- NOTE | 2016-10-14 13:03 | HHI.PR ---
Subjective Remarks The pt was wandering around the conti and had no acute complaints. He would like to go home soon. Discussed with nursing. Objective Vitals Vital Signs Date Time Temp Pulse Resp B/P Pulse Ox O2 Delivery O2 Flow Rate FiO2 10/14/16 12:00 96.8 65 17 138/86 97 10/14/16 08:00 97.0 62 18 149/89 100 10/14/16 04:00 97.4 60 20 153/89 97 10/14/16 00:00 97.8 61 20 173/96 100 10/13/16 20:00 98.3 60 18 123/82 99 I/O 10/13/16 10/13/16 10/13/16 10/14/16 10/14/16 10/14/16 07:00 15:00 23:00 07:00 15:00 23:00 Intake Total 752 ml 1344 ml 360 ml 2492 ml Output Total 0 ml Balance 752 ml 1344 ml 360 ml 2492 ml Intake Oral 240 ml 120 ml 360 ml 360 ml IV Total 512 ml 1224 ml 2132 ml Stool Total 0 ml # Voids 2 2 3 2 # Bowel Movements 0 0 1 Result Diagram: 10/14/16 0323 10/14/16 0323 Imaging Last Impressions Chest X-Ray 10/12/16 0000 Signed Impressions: Service Date/Time: Wednesday, October 12, 2016 16:01 - CONCLUSION: No acute focal pulmonary infiltrate. Scoliosis of the thoracolumbar spine. Ajay Hinds MD Objective Remarks GENERAL: This is a well-nourished, well-developed patient, in no apparent distress. SKIN: Warm and dry HEENT: Normocephalic. Pupils equal round and reactive. Nose without bleeding. Airway patent. NECK: Trachea midline. No JVD. Supple. CARDIOVASCULAR: Regular rate and rhythm without murmurs, gallops or rubs. RESPIRATORY: Clear to auscultation. Breath sounds equal bilaterally. No wheezes , rales, or rhonchi. GASTROINTESTINAL: Abdomen soft, non-tender, nondistended. Bowel Sounds normoactive x4. : Voiding without difficulty. MUSCULOSKELETAL: Extremities without clubbing, cyanosis, or edema. NEUROLOGICAL: Awake and alert. Oriented to person, place. Moves all extremities. Normal speech. PSYCH: Calm. Medications and IVs Current Medications Medications (Trade) Dose Ordered Sig/Carol Route Start Time Stop Time Status Last Admin (NS 1000 ml Inj) 1,000 ml @ 150 mls/hr Q6H40M IV 10/12/16 21:15 10/14/16 06:35 (Heparin Inj) 5,000 units Q12HR SQ 10/12/16 21:00 10/14/16 10:35 (Ativan Inj) 1 mg Q2H PRN IV 10/12/16 21:15 (NS Flush) 2 ml UNSCH PRN IV FLUSH 10/13/16 08:45 (NS Flush) 2 ml BID IV FLUSH 10/13/16 09:00 (Tylenol) 650 mg Q4H PRN PO 10/13/16 08:45 (Tylenol) 650 mg Q6H PRN PO 10/13/16 08:45 (Narcan Inj) 0.4 mg UNSCH PRN IV 10/13/16 08:45 (Barbara-Colace) 1 tab BID PO 10/13/16 09:00 10/13/16 21:31 (Milk Of Magnesia Liq) 30 ml Q12H PRN PO 10/13/16 08:45 (Senokot) 17.2 mg Q12H PRN PO 10/13/16 08:45 A/P Assessment and Plan 21-year-old male with past medical history of Dandy Walker malformation, 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 Patient was Youssef acted by the ED provider and was admitted to the psychiatric unit. He was transferred to the medical floor because he was found to have rhabdomyolysis. Adjustment disorder Calm at this time. - Management by psychiatry team. Outpt follow-up. Dandy Walker Malformation Chronic[place] [address]. Continues to improve with IVF hydration. Questionable seizure activity , NMS. EEG without evidence of seizure. - Trend CK. - IVFs. - avoid neuroleptics. ARF S/t rhabdo. Improved with fluids. - continue fluids. - monitor. Acute hepatitis S/t rhabdo. Improving. - monitor LFTs. SIRS Tachycardic, WBC 12.2. No source. Elevated lactic acid. CXR, UA unremarkable. - IV fluid hydration. - follow cultures. Bradycardia HR decreases to the low 40s when sleeping. EKG with sinus bradycardia, short TN interval. On Lopressor as an outpt. - continue to hold Lopressor. - telemetry. HTN On several medications as an outpt. - hold meds. Blood pressure has been relatively well controlled. - clonidine as needed. DVT prophylaxis: Heparin Discharge Planning Awaiting improvement in CPK levels Xavier Hollingsworth DO Oct 14, 2016 13:03
[2016-10-14] MEDS ORDERED: cloNIDine HCL 0.1 MG TAB PO PRN (13:15)
[2016-10-15] VITALS: BP 137/67; PULSE 75; RESP 20; TEMP 97.3; O2SAT 95
[2016-10-15] MEDS: SODIUM CHLOR 0.9% 1000 ML INJ 1,000 ML IV SCH ×4 (02:35→20:30)
[2016-10-15 06:39] LABS: ALT (GPT) 112 U/L (12-78); ANION GAP 9 MEQ/L (5-15); AST (GOT) 178 U/L (15-37); BLOOD UREA NITROGEN 8 MG/DL (7-18); CHLORIDE 104 MEQ/L (98-107); GLOMERULAR FILTRATION RATE 153 ML/MIN (>89); POTASSIUM 3.7 MEQ/L (3.5-5.1); SODIUM (NA) 142 MEQ/L (136-145)
[2016-10-15 07:06] LABS: ALKALINE PHOSPHATASE 47 U/L (45-117); CREATINE KINASE 7689 U/L (39-308); TOTAL BILIRUBIN ADULT 0.3 MG/DL (0.2-1.0)
[2016-10-15 07:23] LABS: CKMB 10.1 NG/ML (0.5-3.6)
[2016-10-15 08:00] VITALS: BP 146/89; PULSE 56; RESP 15; TEMP 97.5; O2SAT 99
[2016-10-15] MEDS: SODIUM CHLORIDE 0.9% FLUSH 10 ML FLUSH IV FLUSH SCH ×2 (08:12→20:28)
[2016-10-15] MEDS: DOCUSATE SODIUM 50 MG/SENNA 8.6 MG TAB PO SCH ×2 (08:12→20:28)
[2016-10-15] MEDS: HEPARIN SODIUM - SQ 10,000 UNITS/ML VIAL SQ SCH ×2 (08:12→20:29)
--- NOTE | 2016-10-15 09:32 | HHI.PR ---
Subjective Remarks Follow-up rhabdomyolysis. Patient asymptomatic denies leg pain and weakness. He has no voiding issues. Discussed with RN Objective Vitals Vital Signs Date Time Temp Pulse Resp B/P Pulse Ox O2 Delivery O2 Flow Rate FiO2 10/15/16 08:00 97.5 56 15 146/89 99 10/15/16 00:00 97.3 75 20 137/67 95 10/14/16 21:30 62 10/14/16 20:00 98.3 58 20 147/87 96 10/14/16 16:00 98.0 55 17 155/78 96 10/14/16 12:00 96.8 65 17 138/86 97 I/O 10/14/16 10/14/16 10/14/16 10/15/16 10/15/16 10/15/16 07:00 15:00 23:00 07:00 15:00 23:00 Intake Total 2492 ml 240 ml 240 ml 888 ml Balance 2492 ml 240 ml 240 ml 888 ml Intake Oral 360 ml 240 ml 240 ml 120 ml IV Total 2132 ml 768 ml # Voids 2 2 2 1 # Bowel Movements 1 0 0 0 Result Diagram: 10/14/16 0323 10/15/16 0505 Imaging Last Impressions Chest X-Ray 10/12/16 0000 Signed Impressions: Service Date/Time: Wednesday, October 12, 2016 16:01 - CONCLUSION: No acute focal pulmonary infiltrate. Scoliosis of the thoracolumbar spine. Ajay Hinds MD Objective Remarks GENERAL: This is a well-nourished, well-developed patient, in no apparent distress. SKIN: Warm and dry HEENT: Normocephalic. Pupils equal round and reactive. Nose without bleeding. Airway patent. NECK: Trachea midline. No JVD. Supple. CARDIOVASCULAR: Regular rate and rhythm without murmurs, gallops or rubs. RESPIRATORY: Clear to auscultation. Breath sounds equal bilaterally. No wheezes , rales, or rhonchi. GASTROINTESTINAL: Abdomen soft, non-tender, nondistended. Bowel Sounds normoactive x4. : Voiding without difficulty. MUSCULOSKELETAL: Extremities without clubbing, cyanosis, or edema. NEUROLOGICAL: Awake and alert. Oriented to person, place. Moves all extremities. Normal speech. PSYCH: Calm. Doesn't say much. He is oriented to person and place. 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 Patient was Youssef acted by the ED provider and was admitted to the psychiatric unit. He was transferred to the medical floor because he was found to have rhabdomyolysis. Adjustment disorder Calm at this time. - Management by psychiatry team. Outpt follow-up. Dandy Walker Malformation [place] [address]. Continues to improve with IVF hydration but still with significantly elevated CK up to 7000. Questionable seizure activity, NMS. EEG without evidence of seizure. - Trend CK. - Continue IVFs to prevent acute kidney injury. - avoid neuroleptics. ARF S/t rhabdo. Improved with fluids. - continue fluids. - monitor. Acute hepatitis S/t rhabdo. Improving. - monitor LFTs. SIRS Tachycardic, WBC 12.2. No source. Elevated lactic acid. CXR, UA unremarkable. - IV fluid hydration. - follow cultures. Bradycardia HR decreases to the low 40s when sleeping. EKG with sinus bradycardia, short [place] interval. On Lopressor as an outpt. - continue to hold Lopressor. - telemetry. HTN On several medications as an outpt. - hold meds. Blood pressure has been relatively well controlled. - clonidine as needed. DVT prophylaxis: Heparin Discharge Planning Not ready for discharge Anthony Weaver MD Oct 15, 2016 09:32
[2016-10-15 12:00] VITALS: BP 148/88; PULSE 55; RESP 16; TEMP 98.2; O2SAT 97
--- NOTE | 2016-10-15 15:45 | HHI.DCPOC ---
Discharge Care Plan Diagnosis: (1) Rhabdomyolysis Your Health Problems Are: Difficulty with ADL Exercise Tolerance Goals to Promote Your Health * To prevent worsening of your condition and complications * To maintain your health at the optimal level Directions to Meet Your Goals Take your medications as prescribed Follow your dietary instruction Follow activity as directed Keep your appointments as scheduled Take your immunizations and boosters as scheduled If your symptoms worsen call your PCP, if no PCP go to Urgent Care Center or Emergency Room Smoking is Dangerous to Your Health. Avoid second hand smoke Call the 24-hour hour crisis hotline for domestic abuse at Anthony Weaver MD Oct 15, 2016 15:45
[2016-10-15 16:00] VITALS: BP 162/92; PULSE 72; RESP 18; TEMP 97.6; O2SAT 99
[2016-10-15 20:00] VITALS: BP 140/82; PULSE 47; RESP 20; TEMP 96.5; O2SAT 100
[2016-10-16] VITALS: BP 137/86; PULSE 47; RESP 19; TEMP 96.2; O2SAT 96
[2016-10-16 04:00] VITALS: BP 143/92; PULSE 51; RESP 19; TEMP 96.5; O2SAT 94
[2016-10-16] MEDS: SODIUM CHLOR 0.9% 1000 ML INJ 1,000 ML IV SCH ×3 (05:25→21:04)
[2016-10-16 06:52] LABS: ALT (GPT) 117 U/L (12-78); ANION GAP 2 MEQ/L (5-15); AST (GOT) 120 U/L (15-37); BICARBONATE 31.8 MEQ/L (21.0-32.0); BLOOD UREA NITROGEN 6 MG/DL (7-18); CHLORIDE 105 MEQ/L (98-107); GLOMERULAR FILTRATION RATE 153 ML/MIN (>89); POTASSIUM 3.7 MEQ/L (3.5-5.1); SODIUM (NA) 139 MEQ/L (136-145)
[2016-10-16 07:05] LABS: ALKALINE PHOSPHATASE 44 U/L (45-117); CREATINE KINASE 4020 U/L (39-308); TOTAL BILIRUBIN ADULT 0.4 MG/DL (0.2-1.0)
[2016-10-16 07:22] LABS: CKMB 5.6 NG/ML (0.5-3.6)
[2016-10-16] MEDS: HEPARIN SODIUM - SQ 10,000 UNITS/ML VIAL SQ SCH ×2 (07:53→21:05)
[2016-10-16] MEDS: DOCUSATE SODIUM 50 MG/SENNA 8.6 MG TAB PO SCH ×3 (07:53→21:05)
[2016-10-16] MEDS: SODIUM CHLORIDE 0.9% FLUSH 10 ML FLUSH IV FLUSH SCH ×2 (07:54→21:00)
[2016-10-16 08:00] VITALS: BP 138/84; PULSE 55; RESP 20; TEMP 97.3; O2SAT 99
--- NOTE | 2016-10-16 09:06 | HHI.PR ---
Subjective Remarks Follow-up rhabdomyolysis and hypertension. States he is doing okay denies leg pain, chest pain, shortness of breath and urinary complaints. Discussed with RN Objective Vitals Vital Signs Date Time Temp Pulse Resp B/P Pulse Ox O2 Delivery O2 Flow Rate FiO2 10/16/16 04:00 96.5 51 19 143/92 94 10/16/16 00:00 96.2 47 19 137/86 96 10/15/16 20:00 96.5 47 20 140/82 100 10/15/16 16:00 97.6 72 18 162/92 99 10/15/16 12:00 98.2 55 16 148/88 97 I/O 10/15/16 10/15/16 10/15/16 10/16/16 10/16/16 10/16/16 07:00 15:00 23:00 07:00 15:00 23:00 Intake Total 888 ml 1129 ml 1224 ml 1361 ml Balance 888 ml 1129 ml 1224 ml 1361 ml Intake Oral 120 ml 120 ml 240 ml 360 ml IV Total 768 ml 1009 ml 984 ml 1001 ml # Voids 1 2 3 2 # Bowel Movements 0 0 0 0 Result Diagram: 10/14/16 0323 10/16/16 0539 Imaging Last Impressions Chest X-Ray 10/12/16 0000 Signed Impressions: Service Date/Time: Wednesday, October 12, 2016 16:01 - CONCLUSION: No acute focal pulmonary infiltrate. Scoliosis of the thoracolumbar spine. Ajay Hinds MD Objective Remarks GENERAL: This is a well-nourished, well-developed patient, in no apparent distress. SKIN: Warm and dry HEENT: Normocephalic. Pupils equal round and reactive. Nose without bleeding. Airway patent. NECK: Trachea midline. No JVD. Supple. CARDIOVASCULAR: Regular rate and rhythm without murmurs, gallops or rubs. RESPIRATORY: Clear to auscultation. Breath sounds equal bilaterally. No wheezes , rales, or rhonchi. GASTROINTESTINAL: Abdomen soft, non-tender, nondistended. Bowel Sounds normoactive x4. : Voiding without difficulty. MUSCULOSKELETAL: Extremities without clubbing, cyanosis, or edema. NEUROLOGICAL: Awake and alert. Oriented to person, place. Moves all extremities. Normal speech. PSYCH: Calm. Doesn't say much. He is oriented to person and place. 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 Patient was Youssef acted by the ED provider and was admitted to the psychiatric unit. He was transferred to the medical floor because he was found to have rhabdomyolysis. Adjustment disorder Calm at this time. - Management by psychiatry team. Outpt follow-up. Dandy Walker Malformation Chronic. [place] [address]. Continues to improve with IVF hydration but still with significantly elevated CK up to 4000. Questionable seizure activity, NMS. EEG without evidence of seizure. - Trend CK. - Continue IVFs to prevent acute kidney injury. - avoid neuroleptics. ARF S/t rhabdo. Improved with fluids. - continue fluids. - monitor. Acute hepatitis S/t rhabdo. Improving. - monitor LFTs. SIRS Tachycardic, WBC 12.2. No source. Elevated lactic acid. CXR, UA unremarkable. - IV fluid hydration. - follow cultures. Bradycardia HR decreases to the low 40s when sleeping. EKG with sinus bradycardia, short [place] interval. On Lopressor as an outpt. - continue to hold Lopressor. - telemetry. HTN On several medications as an outpt. - Blood pressure readings creeping up restart Norvasc at 5 g daily. Monitor - clonidine as needed. DVT prophylaxis: Heparin Discharge Planning Not ready for discharge still with elevated CK requiring IV hydration Anthony Weaver MD Oct 16, 2016 09:06
[2016-10-16 12:00] VITALS: BP 157/89; PULSE 51; RESP 18; TEMP 96; O2SAT 100
[2016-10-16] MEDS ORDERED: AMLO10 PO (14:35)
[2016-10-16 16:00] VITALS: BP 142/83; PULSE 71; RESP 20; TEMP 95.6; O2SAT 100
[2016-10-16 20:00] VITALS: BP 134/80; PULSE 53; RESP 19; TEMP 96.8; O2SAT 94
[2016-10-17] VITALS: BP 110/63; PULSE 57; RESP 18; TEMP 97.2; O2SAT 98
[2016-10-17 04:00] VITALS: BP 133/74; PULSE 65; RESP 19; TEMP 96.4; O2SAT 95
[2016-10-17] MEDS: SODIUM CHLOR 0.9% 1000 ML INJ 1,000 ML IV SCH ×2 (06:08→14:55)
[2016-10-17] MEDS: DOCUSATE SODIUM 50 MG/SENNA 8.6 MG TAB PO SCH ×2 (07:52→21:00)
[2016-10-17] MEDS: SODIUM CHLORIDE 0.9% FLUSH 10 ML FLUSH IV FLUSH SCH ×2 (07:52→21:00)
[2016-10-17] MEDS: HEPARIN SODIUM - SQ 10,000 UNITS/ML VIAL SQ SCH ×2 (07:54→21:31)
[2016-10-17 08:00] VITALS: BP 130/88; PULSE 60; RESP 18; TEMP 96.6; O2SAT 98
[2016-10-17 08:18] LABS: ANION GAP 5 MEQ/L (5-15); AST (GOT) 109 U/L (15-37); BICARBONATE 27.8 MEQ/L (21.0-32.0); BLOOD UREA NITROGEN 9 MG/DL (7-18); CHLORIDE 106 MEQ/L (98-107); GLOMERULAR FILTRATION RATE 142 ML/MIN (>89); MAGNESIUM 1.7 MG/DL (1.5-2.5); POTASSIUM 3.9 MEQ/L (3.5-5.1); SODIUM (NA) 139 MEQ/L (136-145)
[2016-10-17 08:19] LABS: ALT (GPT) 148 U/L (12-78)
[2016-10-17 08:22] LABS: ALKALINE PHOSPHATASE 48 U/L (45-117); TOTAL BILIRUBIN ADULT 0.5 MG/DL (0.2-1.0)
--- NOTE | 2016-10-17 10:09 | HHI.PR ---
Subjective Remarks Follow-up rhabdomyolysis, hypertension and constipation. Refuses bowel regimen denies nausea and abdominal pain. Discussed with RN. Objective Vitals Vital Signs Date Time Temp Pulse Resp B/P Pulse Ox O2 Delivery O2 Flow Rate FiO2 10/17/16 08:00 96.6 60 18 130/88 98 10/17/16 04:00 96.4 65 19 133/74 95 10/17/16 00:00 97.2 57 18 110/63 98 10/16/16 20:00 96.8 53 19 134/80 94 10/16/16 16:00 95.6 71 20 142/83 100 10/16/16 12:00 96.0 51 18 157/89 100 I/O 10/16/16 10/16/16 10/16/16 10/17/16 10/17/16 10/17/16 07:00 15:00 23:00 07:00 15:00 23:00 Intake Total 1361 ml 1178 ml 1161 ml 1131 ml Balance 1361 ml 1178 ml 1161 ml 1131 ml Intake Oral 360 ml 480 ml 480 ml 240 ml IV Total 1001 ml 698 ml 681 ml 891 ml # Voids 2 2 3 # Bowel Movements 0 0 0 Result Diagram: 10/14/16 0323 10/17/16 0732 Objective Remarks GENERAL: This is a well-nourished, well-developed patient, in no apparent distress. SKIN: Warm and dry HEENT: Normocephalic. Pupils equal round and reactive. Nose without bleeding. Airway patent. NECK: Trachea midline. No JVD. Supple. CARDIOVASCULAR: Regular rate and rhythm without murmurs, gallops or rubs. RESPIRATORY: Clear to auscultation. Breath sounds equal bilaterally. No wheezes , rales, or rhonchi. GASTROINTESTINAL: Abdomen soft, non-tender, nondistended. Bowel Sounds normoactive x4. : Voiding without difficulty. MUSCULOSKELETAL: Extremities without clubbing, cyanosis, or edema. NEUROLOGICAL: Awake and alert. Oriented to person, place. Moves all extremities. Normal speech. PSYCH: Calm. Doesn't say much. He is oriented to person and place. 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 Patient was Youssef acted by the ED provider and was admitted to the psychiatric unit. He was transferred to the medical floor because he was found to have rhabdomyolysis. Adjustment disorder Calm at this time. - Management by psychiatry team. Outpt follow-up. Dandy Walker Malformation Chronic. - OT. Rhabdomyolysis CK down to 1999. Continues to improve with IVF hydration. Questionable seizure activity, NMS. EEG without evidence of seizure. - Continue IVFs to prevent acute kidney injury. - avoid neuroleptics. ARF S/t rhabdo. Improved with fluids. - continue fluids. - monitor. Acute hepatitis S/t rhabdo. Improving. - monitor LFTs. SIRS Tachycardic, WBC 12.2. No source. Elevated lactic acid. CXR, UA unremarkable. - IV fluid hydration. - follow cultures. Bradycardia HR decreases to the low 40s when sleeping. EKG with sinus bradycardia, short [place] interval. On Lopressor as an outpt. - continue to hold Lopressor. - telemetry. HTN On several medications as an outpt. - Blood pressure readings improving on Norvasc at 5 mg daily. Monitor - clonidine as needed. DVT prophylaxis: Heparin Discharge Planning Stable for discharge Anthony Weaver MD Oct 17, 2016 10:09 Anthony Weaver MD Oct 17, 2016 10:09
[2016-10-17 11:13] LABS: CKMB 5.4 NG/ML (0.5-3.6)
[2016-10-17 12:00] VITALS: BP 127/75; PULSE 59; RESP 18; TEMP 98.2; O2SAT 98
--- NOTE | 2016-10-17 13:14 | HHI.DS ---
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 Patient was Youssef acted by the ED provider and is now been admitted to the psychiatric unit. Hospitalist services have been consulted for medical management. Given patient's intellectual disability, history is obtained from discussion with the patient directly as well as review of the previous computerized medical record. Per the nursing staff, patient was very stiff, diaphoretic and tachycardic. His heart rate was 144. Temp 99.8. Patient reports he has no breathing complaints now. He appears comfortable. The patient was transferred from psychiatry secondary to elevated CK-MB levels around 36,000. The patient was started on IV fluids, supportive care and monitored. He denies any complaints. He has been ambulating around the halls without difficulty. He is tolerating a diet. He denies any aches or pains. He does say he has not been having any bowel movements. He says that his laptop is broken. He denies any shortness of breath. He says he is drinking plenty of fluids. CBC/BMP: 10/14/16 0323 10/17/16 0732 Significant Findings Laboratory Tests Test 10/15/16 10/16/16 10/17/16 05:05 05:39 07:32 Aspartate Amino Transf 178 U/L (15-37) 120 U/L (15-37) 109 U/L (15-37) (AST/SGOT) Alanine Aminotransferase 112 U/L (12-78) 117 U/L (12-78) 148 U/L (12-78) (ALT/SGPT) Total Creatine Kinase 7689 U/L 4020 U/L 2353 U/L (39-308) (39-308) (39-308) Creatine Kinase MB 10.1 NG/ML 5.6 NG/ML 5.4 NG/ML (0.5-3.6) (0.5-3.6) (0.5-3.6) Anion Gap 2 MEQ/L (5-15) Blood Urea Nitrogen 6 MG/DL (7-18) Alkaline Phosphatase 44 U/L (45-117) Imaging Last Impressions Chest X-Ray 10/12/16 0000 Signed Impressions: Service Date/Time: Wednesday, October 12, 2016 16:01 - CONCLUSION: No acute focal pulmonary infiltrate. Scoliosis of the thoracolumbar spine. Ajay Hinds MD PE at Discharge GENERAL: This is a well-nourished, well-developed patient, in no apparent distress. SKIN: Warm and dry HEENT: Normocephalic. Pupils equal round and reactive. Nose without bleeding. Airway patent. NECK: Trachea midline. No JVD. Supple. CARDIOVASCULAR: Regular rate and rhythm without murmurs, gallops or rubs. RESPIRATORY: Clear to auscultation. Breath sounds equal bilaterally. No wheezes , rales, or rhonchi. GASTROINTESTINAL: Abdomen soft, non-tender, nondistended. Bowel Sounds normoactive x4. : Voiding without difficulty. MUSCULOSKELETAL: Extremities without clubbing, cyanosis, or edema. NEUROLOGICAL: Awake and alert. Oriented to person, place. Moves all extremities. Normal speech. PSYCH: Calm. Doesn't say much. He is oriented to person and place. 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 Patient was Youssef acted by the ED provider and was admitted to the psychiatric unit. He was transferred to the medical floor because he was found to have rhabdomyolysis. Adjustment disorder Calm at this time. Youssef act has been lifted - Management by psychiatry team. Outpt follow-up. Dandy Walker Malformation Chronic. - OT. Rhabdomyolysis CK down to 1999. Continues to improve status post IVF hydration. Questionable seizure activity, NMS. EEG without evidence of seizure. - avoid neuroleptics. ARF S/t rhabdo. Improved with fluids. - continue fluids. - monitor. Acute hepatitis S/t rhabdo. Improving. - monitor LFTs. SIRS Tachycardic, WBC 12.2. No source. Elevated lactic acid. CXR, UA unremarkable. - IV fluid hydration. - follow cultures. Bradycardia HR decreases to the low 40s when sleeping. EKG with sinus bradycardia, short [place] interval. On Lopressor as an outpt. - continue to hold Lopressor. - telemetry. HTN On several medications as an outpt. - Blood pressure readings improving on Norvasc at 5 mg daily. Monitor - clonidine as needed. Constipation. Refusing bowel regimen but agrees to take Barbara-Colace today. DVT prophylaxis: Heparin Pt Condition on Discharge: Stable Discharge Disposition: [facility] Discharge Time: > 30 minutes Discharge Instructions DIET: Follow Instructions for: Heart Healthy Diet Activities you can perform: Regular-No Restrictions Activities to Avoid: Driving Follow up Referrals: PCP Follow-up - 1 Week Psychiatry Adult - 1 Week New Medications: Amlodipine (Norvasc) 10 Mg Tab 5 MG PO DAILY Blood Pressure Management #30 TAB Additional Information I spent 35 minutes [id number] with the patient or on the anotn discussing the patient's disposition, prognosis, and plan of care with patient's caregivers. Over half the time spent was devoted to counseling the patient regarding placement in coordinating care with caregivers and case management. Anthony Weaver MD Oct 17, 2016 13:14
[2016-10-17 16:35] VITALS: BP 123/62; PULSE 78; RESP 18; TEMP 99.2; O2SAT 98
[2016-10-17 20:00] VITALS: BP 116/69; PULSE 55; PULSE 81; RESP 20; TEMP 97.2; O2SAT 99
[2016-10-18] VITALS (7 sets, daily range): BP systolic 114–130; BP diastolic 65–75; PULSE 55–96; RESP 17–19; TEMP 96–97.4; O2SAT 94–100
[2016-10-18] MEDS: SODIUM CHLOR 0.9% 1000 ML INJ 1,000 ML IV SCH (02:20)
[2016-10-18] MEDS: DOCUSATE SODIUM 50 MG/SENNA 8.6 MG TAB PO SCH ×2 (07:57→21:00)
[2016-10-18] MEDS: SODIUM CHLORIDE 0.9% FLUSH 10 ML FLUSH IV FLUSH SCH ×2 (07:57→21:00)
[2016-10-18] MEDS: HEPARIN SODIUM - SQ 10,000 UNITS/ML VIAL SQ SCH ×2 (07:57→21:19)
[2016-10-18] MEDS ORDERED: PILL SPLITTER OTHER PRN (08:15)
--- NOTE | 2016-10-18 10:26 | HHI.PR ---
Subjective Remarks Follow-up rhabdomyolysis. Patient has no complaints basically says no to all my questions. Denies nausea, vomiting, abnormal pain and bowel movement. Refusing Barbara-Colace. Discussed with RN, stable for discharge but no bed available at the [facility] where he resides Objective Vitals Vital Signs Date Time Temp Pulse Resp B/P Pulse Ox O2 Delivery O2 Flow Rate FiO2 10/18/16 08:00 96.8 67 18 127/66 94 10/18/16 04:00 97.0 59 19 128/68 95 10/18/16 00:00 96.7 55 18 114/69 100 10/17/16 20:00 81 10/17/16 20:00 97.2 55 20 116/69 99 10/17/16 16:35 99.2 78 18 123/62 98 10/17/16 12:00 98.2 59 18 127/75 98 I/O 10/17/16 10/17/16 10/17/16 10/18/16 10/18/16 10/18/16 07:00 15:00 23:00 07:00 15:00 23:00 Intake Total 1131 ml 240 ml 240 ml 240 ml Balance 1131 ml 240 ml 240 ml 240 ml Intake Oral 240 ml 240 ml 240 ml 240 ml IV Total 891 ml 0 ml 0 ml # Voids 3 2 2 # Bowel Movements 0 0 0 Result Diagram: 10/14/16 0323 10/17/16 0732 Imaging Last Impressions Chest X-Ray 10/12/16 0000 Signed Impressions: Service Date/Time: Wednesday, October 12, 2016 16:01 - CONCLUSION: No acute focal pulmonary infiltrate. Scoliosis of the thoracolumbar spine. Ajay Hinds MD Objective Remarks GENERAL: This is a well-nourished, well-developed patient, in no apparent distress. SKIN: Warm and dry HEENT: Normocephalic. Pupils equal round and reactive. Nose without bleeding. Airway patent. NECK: Trachea midline. No JVD. Supple. CARDIOVASCULAR: Regular rate and rhythm without murmurs, gallops or rubs. RESPIRATORY: Clear to auscultation. Breath sounds equal bilaterally. No wheezes , rales, or rhonchi. GASTROINTESTINAL: Abdomen soft, non-tender, nondistended. Bowel Sounds normoactive x4. MUSCULOSKELETAL: Extremities without clubbing, cyanosis, or edema. NEUROLOGICAL: Awake and alert. Moves all extremities. Normal speech. PSYCH: Calm. Doesn't say much. 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 Patient was Youssef acted by the ED provider and was admitted to the psychiatric unit. He was transferred to the medical floor because he was found to have rhabdomyolysis. Adjustment disorder Calm at this time. Youssef act has been lifted - Management by psychiatry team. Outpt follow-up. Dandy Walker Malformation Chronic. - OT. Rhabdomyolysis CK down to 1999. Continues to improve with IVF hydration. Questionable seizure activity, NMS. EEG without evidence of seizure. - avoid neuroleptics. ARF S/t rhabdo. Improved with fluids. - continue fluids. - monitor. Acute hepatitis S/t rhabdo. Improving. - monitor LFTs. SIRS Tachycardic, WBC 12.2. No source. Elevated lactic acid. CXR, UA unremarkable. - IV fluid hydration. - follow cultures. Bradycardia HR decreases to the low 40s when sleeping. EKG with sinus bradycardia, short [place] interval. On Lopressor as an outpt. - continue to hold Lopressor. - telemetry. HTN On several medications as an outpt. - Blood pressure readings improving on Norvasc at 5 mg daily. Monitor - clonidine as needed. DVT prophylaxis: Heparin Discharge Planning Stable for discharge Anthony Weaver MD Oct 18, 2016 10:26
[2016-10-19 00:15] VITALS: BP 117/58; PULSE 52; RESP 17; TEMP 96.9; O2SAT 95
[2016-10-19 08:00] VITALS: BP 133/70; PULSE 51; RESP 17; TEMP 96.3; O2SAT 98
[2016-10-19] MEDS: HEPARIN SODIUM - SQ 10,000 UNITS/ML VIAL SQ SCH ×2 (08:09→20:05)
[2016-10-19] MEDS: DOCUSATE SODIUM 50 MG/SENNA 8.6 MG TAB PO SCH ×2 (08:09→19:06)
[2016-10-19] MEDS: SODIUM CHLORIDE 0.9% FLUSH 10 ML FLUSH IV FLUSH SCH ×2 (08:09→19:06)
--- NOTE | 2016-10-19 10:28 | HHI.PR ---
Subjective Remarks Follow-up hypertension. Patient more interactive today denies any complaints. No bowel movement but denies nausea and abdominal pain. States he is taking Barbara-Colace but has been refusing per RN Objective Vitals Vital Signs Date Time Temp Pulse Resp B/P Pulse Ox O2 Delivery O2 Flow Rate FiO2 10/19/16 08:00 96.3 51 17 133/70 98 10/19/16 00:15 96.9 52 17 117/58 95 10/18/16 20:14 96.8 65 17 128/66 94 10/18/16 16:00 96.0 74 18 123/65 95 10/18/16 12:00 96.7 78 18 118/65 95 I/O 10/18/16 10/18/16 10/18/16 10/19/16 10/19/16 10/19/16 07:00 15:00 23:00 07:00 15:00 23:00 Intake Total 240 ml 480 ml 280 ml Balance 240 ml 480 ml 280 ml Intake Oral 240 ml 480 ml 280 ml IV Total 0 ml # Voids 2 2 2 # Bowel Movements 0 Result Diagram: 10/17/16 0732 Objective Remarks GENERAL: This is a well-nourished, well-developed patient, in no apparent distress. SKIN: Warm and dry HEENT: Normocephalic. Pupils equal round and reactive. Nose without bleeding. Airway patent. NECK: Trachea midline. No JVD. Supple. CARDIOVASCULAR: Regular rate and rhythm without murmurs, gallops or rubs. RESPIRATORY: Clear to auscultation. Breath sounds equal bilaterally. No wheezes , rales, or rhonchi. GASTROINTESTINAL: Abdomen soft, non-tender, nondistended. Bowel Sounds normoactive x4. MUSCULOSKELETAL: Extremities without clubbing, cyanosis, or edema. NEUROLOGICAL: Awake and alert. Moves all extremities. Normal speech. 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 Patient was Youssef acted by the ED provider and was admitted to the psychiatric unit. He was transferred to the medical floor because he was found to have rhabdomyolysis. Adjustment disorder Calm at this time. Youssef act has been lifted - Management by psychiatry team. Outpt follow-up. Dandy Walker Malformation Chronic. - OT. Rhabdomyolysis CK down to 1999. Continues to improve with IVF hydration. Questionable seizure activity, NMS. EEG without evidence of seizure. - avoid neuroleptics. ARF S/t rhabdo. Improved with fluids. - continue fluids. - monitor. Acute hepatitis S/t rhabdo. Improving. - monitor LFTs. SIRS Tachycardic, WBC 12.2. No source. Elevated lactic acid. CXR, UA unremarkable. - IV fluid hydration. - follow cultures. Bradycardia HR decreases to the low 40s when sleeping. EKG with sinus bradycardia, short [place] interval. On Lopressor as an outpt. - continue to hold Lopressor. - telemetry. HTN On several medications as an outpt. - Blood pressure readings improving on Norvasc at 5 mg daily. Monitor - clonidine as needed. DVT prophylaxis: Heparin Discharge Planning Stable for discharge Anthony Weaver MD Oct 19, 2016 10:28
[2016-10-19 12:00] VITALS: BP 131/87; PULSE 87; RESP 18; TEMP 98.1; O2SAT 98
[2016-10-19 16:00] VITALS: BP_SYST 123; BP_SYST 135; BP_DIAS 63; BP_DIAS 68; PULSE 80; RESP 17; RESP 20; TEMP 98; TEMP 99; O2SAT 95
[2016-10-19 20:13] VITALS: BP 122/62; PULSE 70; RESP 18; TEMP 96.5; O2SAT 94
[2016-10-20 00:06] VITALS: BP 105/50; PULSE 54; RESP 17; TEMP 97.8; O2SAT 96
[2016-10-20] MEDS: HEPARIN SODIUM - SQ 10,000 UNITS/ML VIAL SQ SCH ×2 (07:32→21:00)
[2016-10-20] MEDS: DOCUSATE SODIUM 50 MG/SENNA 8.6 MG TAB PO SCH ×3 (07:32→21:00)
[2016-10-20] MEDS: SODIUM CHLORIDE 0.9% FLUSH 10 ML FLUSH IV FLUSH SCH ×2 (07:48→21:00)
[2016-10-20 08:00] VITALS: BP 118/66; PULSE 84; RESP 17; TEMP 96.9; O2SAT 98
--- NOTE | 2016-10-20 09:26 | HHI.PR ---
Subjective Remarks Follow-up hypertension. Discharge pending awaiting [facility] acceptance. Discussed with case management, [facility] unable to accept patient until tomorrow. Patient denies any complaints no nausea and abdominal pain. No BM. He agrees to take Barbara-Colace today which he has been refusing previously discussed with RN Objective Vitals Vital Signs Date Time Temp Pulse Resp B/P Pulse Ox O2 Delivery O2 Flow Rate FiO2 10/20/16 08:00 96.9 84 17 118/66 98 10/20/16 00:06 97.8 54 17 105/50 96 10/19/16 20:13 96.5 70 18 122/62 94 10/19/16 16:00 98.0 80 17 123/68 95 10/19/16 12:00 98.1 87 18 131/87 98 I/O 10/19/16 10/19/16 10/19/16 10/20/16 10/20/16 10/20/16 07:00 15:00 23:00 07:00 15:00 23:00 Intake Total 280 ml 475 ml 380 ml 360 ml Balance 280 ml 475 ml 380 ml 360 ml Intake Oral 280 ml 475 ml 380 ml 360 ml # Voids 2 5 2 2 # Bowel Movements 0 Result Diagram: 10/17/16 0732 Imaging Last Impressions Chest X-Ray 10/12/16 0000 Signed Impressions: Service Date/Time: Wednesday, October 12, 2016 16:01 - CONCLUSION: No acute focal pulmonary infiltrate. Scoliosis of the thoracolumbar spine. Ajay Hinds MD Objective Remarks GENERAL: This is a well-nourished, well-developed patient, in no apparent distress. SKIN: Warm and dry HEENT: Normocephalic. Pupils equal round and reactive. Nose without bleeding. Airway patent. NECK: Trachea midline. No JVD. Supple. CARDIOVASCULAR: Regular rate and rhythm without murmurs, gallops or rubs. RESPIRATORY: Clear to auscultation. Breath sounds equal bilaterally. No wheezes , rales, or rhonchi. GASTROINTESTINAL: Abdomen soft, non-tender, nondistended. Bowel Sounds normoactive x4. MUSCULOSKELETAL: Extremities without clubbing, cyanosis, or edema. NEUROLOGICAL: Awake and alert. Moves all extremities. Normal speech. 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 Patient was Youssef acted by the ED provider and was admitted to the psychiatric unit. He was transferred to the medical floor because he was found to have rhabdomyolysis. Adjustment disorder Calm at this time. Youssef act has been lifted - Management by psychiatry team. Outpt follow-up. Dandy Walker Malformation Chronic. - OT. Rhabdomyolysis CK down to 1999. Continues to improve status post IVF hydration. Questionable seizure activity, NMS. EEG without evidence of seizure. - avoid neuroleptics. ARF S/t rhabdo. Improved with fluids. - continue fluids. - monitor. Acute hepatitis S/t rhabdo. Improving. - monitor LFTs. SIRS Tachycardic, WBC 12.2. No source. Elevated lactic acid. CXR, UA unremarkable. - IV fluid hydration. - follow cultures. Bradycardia HR decreases to the low 40s when sleeping. EKG with sinus bradycardia, short TN interval. On Lopressor as an outpt. - continue to hold Lopressor. - telemetry. HTN On several medications as an outpt. - Blood pressure readings improving on Norvasc at 5 mg daily. Monitor - clonidine as needed. Constipation. Refusing bowel regimen but agrees to take Barbara-Colace today. DVT prophylaxis: Heparin Discharge Planning Stable for discharge pending [facility] arrangement probably in the morning Anthony Weaver MD Oct 20, 2016 09:26
[2016-10-20 12:00] VITALS: BP 152/92; PULSE 111; RESP 17; TEMP 96.3; O2SAT 96
[2016-10-20 16:00] VITALS: BP 123/74; PULSE 58; RESP 16; TEMP 96.3; O2SAT 98
[2016-10-20 20:00] VITALS: BP 134/89; PULSE 62; RESP 16; TEMP 97.8; O2SAT 98
[2016-10-21] VITALS: BP 98/56; PULSE 58; RESP 16; TEMP 96; O2SAT 96
[2016-10-21 08:00] VITALS: BP 123/61; PULSE 63; RESP 16; TEMP 98.4; O2SAT 98
[2016-10-21] MEDS: DOCUSATE SODIUM 50 MG/SENNA 8.6 MG TAB PO SCH (08:40)
[2016-10-21] MEDS: SODIUM CHLORIDE 0.9% FLUSH 10 ML FLUSH IV FLUSH SCH (08:41)
[2016-10-21] MEDS: HEPARIN SODIUM - SQ 10,000 UNITS/ML VIAL SQ SCH (08:41)
--- NOTE | 2016-10-21 09:45 | HHI.DS ---
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 Patient was Youssef acted by the ED provider and is now been admitted to the psychiatric unit. Hospitalist services have been consulted for medical management. Given patient's intellectual disability, history is obtained from discussion with the patient directly as well as review of the previous computerized medical record. Per the nursing staff, patient was very stiff, diaphoretic and tachycardic. His heart rate was 144. Temp 99.8. Patient reports he has no breathing complaints now. He appears comfortable. The patient was transferred from psychiatry secondary to elevated CK-MB levels around 36,000. The patient was started on IV fluids, supportive care and monitored. He denies any complaints. He has been ambulating around the halls without difficulty. He is tolerating a diet. He denies any aches or pains. He does say he has not been having any bowel movements. He says that his laptop is broken. He denies any shortness of breath. He says he is drinking plenty of fluids. CBC/BMP: 10/17/16 0732 Imaging Last Impressions Chest X-Ray 10/12/16 0000 Signed Impressions: Service Date/Time: Wednesday, October 12, 2016 16:01 - CONCLUSION: No acute focal pulmonary infiltrate. Scoliosis of the thoracolumbar spine. Ajay Hinds MD PE at Discharge GENERAL: This is a well-nourished, well-developed patient, in no apparent distress. SKIN: Warm and dry HEENT: Normocephalic. Pupils equal round and reactive. Nose without bleeding. Airway patent. NECK: Trachea midline. No JVD. Supple. CARDIOVASCULAR: Regular rate and rhythm without murmurs, gallops or rubs. RESPIRATORY: Clear to auscultation. Breath sounds equal bilaterally. No wheezes , rales, or rhonchi. GASTROINTESTINAL: Abdomen soft, non-tender, nondistended. Bowel Sounds normoactive x4. MUSCULOSKELETAL: Extremities without clubbing, cyanosis, or edema. NEUROLOGICAL: Awake and alert. Moves all extremities. Normal speech. PSYCH: Calm and cooperative Pt update on day of discharge Follow-up for placement Patient is walking up and down the hallways. He told me he had no complaints. Deny any chest pain, shortness of breathing, palpitation or lightheadedness or dizziness. Dealt with case management today and stated that patient transfer is placed at 3 PM today. 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 Patient was Youssef acted by the ED provider and was admitted to the psychiatric unit. He was transferred to the medical floor because he was found to have rhabdomyolysis. Adjustment disorder -Patient was initially Youssef ACT and psychiatrist was consulted. Per psychiatrist patient did not meet criteria for any admissions to the psychiatry unit. Dandy Walker Malformation Chronic. - OT. Rhabdomyolysis -Patient was found to be rhabdo. He was given IV fluids in which symptoms improved throughout hospitalization. ARF -Due to rhabdomyolysis. Improved with IV fluids. Acute hepatitis S/t rhabdo. -Improved with IV fluids. SIRS Tachycardic, WBC 12.2. No source. Elevated lactic acid. CXR, UA unremarkable. - IV fluid hydration. - Cultures were negative. Bradycardia HR decreases to the low 40s when sleeping. EKG with sinus bradycardia, short DC interval. On Lopressor as an outpt. - Lopressor was held and bradycardia resolved. HTN On several medications as an outpt. - Patient was started on Norvasc with control of blood pressure peaked Constipation. - Refusing bowel regimen but agrees to take Barbara-Colace today. Pt Condition on Discharge: Stable Discharge Disposition: [facility] Discharge Time: <= 30 minutes Discharge Instructions DIET: Follow Instructions for: Heart Healthy Diet Activities you can perform: Regular-No Restrictions Activities to Avoid: Driving Follow up Referrals: PCP Follow-up - 1 Week Psychiatry Adult - 1 Week New Medications: Amlodipine (Norvasc) 10 Mg Tab 5 MG PO DAILY Blood Pressure Management #30 TAB Keshia Oglesby MD Oct 21, 2016 09:45
[2016-10-21 12:00] VITALS: BP 163/100; PULSE 102; RESP 20; TEMP 98.1; O2SAT 97
== END 2016-10-21 15:02 | DRG 558 ==
LOC: N07A 14:43
PROVIDERS: ADMIT Family Medicine; ATTEND Family Medicine
DX: M62.82 Rhabdomyolysis (principal); N17.9 Acute kidney failure, unspecified; R65.10 Systemic inflammatory response syndrome (SIRS) of non-infectious origin without acute organ dysfunction; B17.9 Acute viral hepatitis, unspecified; I10 Essential (primary) hypertension; F43.25 Adjustment disorder with mixed disturbance of emotions and conduct; F79 Unspecified intellectual disabilities; Q03.1 Atresia of foramina of Magendie and Luschka; K59.00 Constipation, unspecified
CPT/HCPCS: 71010; 76937; 80048; 80053; 80076; 81001; 82550; 82552; 83605; 83735; 85025; 93005; J1644; J7030

== ENCOUNTER 2016-10-21 18:01 | Inpatient (IN) | payer OTHER, MEDICAID ==
[~2016-10-21] VITALS: Ht 157.5 cm; Wt 50.6 kg
--- NOTE | 2016-10-21 18:16 | PD ---
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 Patient was discharged earlier today following a short stay for rhabdomyolysis. Upon return home to his assisted living facility, the patient attempted to leave, allegedly climbing the fence of the premises and finding himself in the street, unaware of the risk associated with this. Rather than return him to his residence, the patient was placed under Youssef act and brought to the emergency department. Patient denies suicidal or homicidal ideations. Does state that he does not want to return to his assisted living facility. Does not explain why this is, however, he agrees he is not in any danger there. PFSH Past Medical History Arthritis: No Blood Disorders: No Anxiety: No Depression: No Heart Rhythm Problems: Yes (TACHYCARDIA ) Cancer: No Cardiovascular Problems: Yes ("dande walker syndrome" htn) High Cholesterol: No Chest Pain: No Congestive Heart Failure: No Cerebrovascular Accident: No Diminished Hearing: No Endocrine: No GERD: No Genitourinary: No Headaches: No Hiatal Hernia: No Hypertension: Yes Immune Disorder: No Musculoskeletal: Yes (DANDY WALKER SYNDROME) Neurologic: Yes (DANDY WALKER SYNDROME) Reproductive: No Respiratory: No Immunizations Current: Yes Migraines: No Seizures: No Ulcer: No Social History Alcohol Use: No Tobacco Use: No Substance Use: No Allergies-Medications (Allergen,Severity, Reaction): Coded Allergies: No Known Allergies (Unverified , 10/09/16) Reported Meds & Prescriptions Reported Meds & Active Scripts Active Norvasc (Amlodipine Besylate) 10 Mg Tab 5 Mg PO DAILY Metoprolol Tartrate 25 Mg Tab 12.5 Mg PO DAILY Hold if HR <60 or SBP <110. Lisinopril 10 Mg Tab 10 Mg PO BID Norvasc (Amlodipine Besylate) 10 Mg Tab 10 Mg PO DAILY Review of Systems ROS Limitations: Poor Historian Except as stated in HPI: all other systems reviewed are Neg Physical Exam Exam Limitations: Poor Historian Narrative GENERAL: Well-nourished, well patient, ambulatory and in no acute distress SKIN: Focused skin assessment warm/dry. HEAD: Normocephalic. EYES: No scleral icterus. No injection or drainage. NECK: Supple, trachea midline. No JVD or lymphadenopathy. CARDIOVASCULAR: Regular rate and rhythm without murmurs, gallops, or rubs. RESPIRATORY: Breath sounds equal bilaterally. No accessory muscle use. GASTROINTESTINAL: Abdomen soft, non-tender, nondistended. MUSCULOSKELETAL: No cyanosis, or edema. BACK: Nontender without obvious deformity. No CVA tenderness. Data Data Last Documented VS Vital Signs Date Time Temp Pulse Resp B/P Pulse Ox O2 Delivery O2 Flow Rate FiO2 10/21/16 19:47 97.8 110 18 152/88 Orders Psych Screen (10/21/16 18:14) Diet Regular Basic (10/22/16 Breakfast) Diet Regular Basic (10/21/16 Dinner) Diet Regular Basic (10/21/16 Dinner) [facility] Medical Decision Making Medical Screen Exam Complete: Yes Emergency Medical Condition: Yes Medical Record Reviewed: Yes Differential Diagnosis Normal exam versus mood disorder versus adjustment reaction disorder versus personality disorder Narrative Course 21-year-old male presents to emergency department under Youssef act for psychiatric evaluation. Patient was discharged to day to his assisted living facility. Denies suicidal homicidal ideations. Lab work will not be repeated at this time. Patient is medically cleared to undergo psychiatric screening for further evaluation and disposition. Mental health screening discussed with the patient. Psychiatric screen ordered. Diagnosis Primary Impression: Adjustment disorder with mixed disturbance of emotions and conduct Condition: Stable Rosaura Harman Oct 21, 2016 18:15
[2016-10-21 19:47] VITALS: BP 152/88; PULSE 110; RESP 18; TEMP 97.8
[2016-10-22] MEDS ORDERED: LORazepam 2 MG/ML VIAL PO ONE (13:00)
[2016-10-22] MEDS ORDERED: LORazepam 1 MG TAB PO ONE (13:00)
--- NOTE | 2016-10-22 15:35 | PD ---
History of Present Illness Chief Complaint: Psychiatric Symptoms Time Seen by Provider: 14:00 Travel History International Travel<30 Days: No Contact w/Intl Traveler<30days: No Known affected area: No Legal Status Legal Status: Youssef Act Youssef Act Signed By: Cele Arias History of Present Illness: History of Present Illness HPI 21 year old male with history of Dandy Walker malformation, mental disability who presents to the emergency department today under a Youssef act initiated by PJ. As per the report he got all his possessions and jumped the fence and was in traffic on [place]." Patient was recently treated at [facility] for rhabdo and dehydration and was discharged on October 21, 2016. . he had spent an entire day outside in the heat pacing and refusing to go in to his care home. Patient denies suicidal or homicidal ideations. Does state that he does not want to return to his assisted living facility. Does not explain why this is, however, he agrees he is not in any danger there. Patient was observed pacing in J pod and was not redirectable. He verbalized his desire not to return to the care home and that he wanted to be with his girlfriend. PFSH Past Medical History Arthritis: No Blood Disorders: No Anxiety: No Depression: No Heart Rhythm Problems: Yes (TACHYCARDIA ) Cancer: No Cardiovascular Problems: Yes ("dande walker syndrome" htn) High Cholesterol: No Chest Pain: No Congestive Heart Failure: No Cerebrovascular Accident: No Diminished Hearing: No Endocrine: No GERD: No Genitourinary: No Headaches: No Hiatal Hernia: No Hypertension: Yes Immune Disorder: No Musculoskeletal: Yes (DANDY WALKER SYNDROME) Neurologic: Yes (DANDY WALKER SYNDROME) Reproductive: No Respiratory: No Immunizations Current: Yes Migraines: No Seizures: No Ulcer: No Psychiatric History Psychiatric History Hx Psychiatric Treatment: Last [facility] admit for intermittent explosive disorder October 10-2016 on 2700 unit. History of Inpatient Treatment: Yes Guns or firearms in home: No Social History Single . Lives in care home Hx Alcohol Use: No Hx Tobacco Use: No Hx Substance Use: No Hx of Substance Use Treatment: No Family Psychiatric History unknown Allergies-Medications (Allergen,Severity, Reaction): Coded Allergies: No Known Allergies (Unverified , 10/09/16) Reported Meds & Prescriptions Reported Meds & Active Scripts Active Norvasc (Amlodipine Besylate) 10 Mg Tab 5 Mg PO DAILY Metoprolol Tartrate 25 Mg Tab 12.5 Mg PO DAILY Hold if HR <60 or SBP <110. Lisinopril 10 Mg Tab 10 Mg PO BID Norvasc (Amlodipine Besylate) 10 Mg Tab 10 Mg PO DAILY Review of Systems ROS Limitations: Clinical Condition Exam Alert: Yes [place]: Person, Place, Situation Mood: Anxious Affect: Restricted Speech: Clear Eye Contact: Indirect Memory Intact: Comment (Not tested) Hallucinations: Other (negative) Delusions: No Suicidal: Ideation (negative) Homicidal: Ideation (negative) Insight/Judgement None. Poor. MDM Medical Decision Making Medical Record Reviewed: Yes Assessment/Plan 21 year old male with hx of Dandy Walker malformation as well as intellectual disability who was released from hospital earlier in the day. Upon return to his care home he eloped from there by jumping the perimeter fence. The patietn is unable to care for himself with poor judgement if he were to be returned to his current care home. He is admitted as per Dr. Ace. Orders Psych Screen (10/21/16 18:14) Diet Regular Basic (10/22/16 Breakfast) Diet Regular Basic (10/21/16 Dinner) Diet Regular Basic (10/21/16 Dinner) Diet Regular Basic (10/22/16 Lunch) Lorazepam Inj (Ativan Inj) (10/22/16 13:00) Lorazepam (Ativan) (10/22/16 13:00) Diet Regular Basic (10/22/16 Dinner) Results Vital Signs Date Time Temp Pulse Resp B/P Pulse Ox O2 Delivery O2 Flow Rate FiO2 10/21/16 19:47 97.8 110 18 152/88 Diagnosis Primary Impression: Adjustment disorder with mixed disturbance of emotions and conduct Admitting Information Admitting Physician Requests: Admit Med/ Other Pt Specific Info: No Change to Meds Condition: Stable Anita Read INTEGRATED MARKETING SPECIALIST Oct 22, 2016 15:35
[2016-10-22] MEDS ORDERED: MAGNESIUM HYDROXIDE SUSP 30 ML CUP PO PRN (15:45)
[2016-10-22] MEDS ORDERED: ALUMINUM/MAGNESIUM/SIMETH 30 ML CUP PO PRN (15:45)
[2016-10-22] MEDS ORDERED: ACETAMINOPHEN 325 MG TAB PO PRN (15:45)
[2016-10-22 16:52] VITALS: BP 138/88; PULSE 91; RESP 16; TEMP 97.4; O2SAT 98
[2016-10-23 06:48] VITALS: BP 139/63; PULSE 93; RESP 18; TEMP 97.9; O2SAT 100
[2016-10-23 08:23] LABS: ANION GAP 8 MEQ/L (5-15); BICARBONATE 28.3 MEQ/L (21.0-32.0); BLOOD UREA NITROGEN 20 MG/DL (7-18); CHLORIDE 106 MEQ/L (98-107); GLOMERULAR FILTRATION RATE 106 ML/MIN (>89); POTASSIUM 3.5 MEQ/L (3.5-5.1); SODIUM (NA) 142 MEQ/L (136-145)
[2016-10-23 08:26] LABS: HDL CHOLESTEROL 87.1 MG/DL (40.0-60.0); LDL CHOLESTEROL 110 MG/DL (0-99)
[2016-10-23] MEDS ORDERED: ACETAMINOPHEN 325 MG TAB PO PRN (09:45)
[2016-10-23] MEDS ORDERED: ALUMINUM/MAGNESIUM/SIMETH 30 ML CUP PO PRN (09:45)
[2016-10-23] MEDS ORDERED: MAGNESIUM HYDROXIDE SUSP 30 ML CUP PO PRN (09:45)
[2016-10-23] MEDS ORDERED: PILL SPLITTER OTHER PRN (10:00)
--- NOTE | 2016-10-23 10:01 | HHI.HP ---
Provisional Diagnosis Admission Date Oct 22, 2016 at 15:44 [place]. Adjustment disorder with mixed disturbances of emotion and conduct f 43.25 Dandy -Walker malformation Q03.1 Certification of Person's Competence To Provide Express and Informed Consent I have personally examined Elia Cabello , a person being served at [facility] on, Oct 23, 2016 09:50. Express and informed consent means consent voluntarily given in writing, by a competent person, after sufficient explanation and disclosure of the subject matter involved to enable the person to make a knowing and willful decision without any element of force, fraud, deceit, duress, or other form of constraint or coercion. This person is 18 years of age or older, is not now known to be incompetent to consent to treatment with a guardian advocate, and does not have a health care surrogate or proxy currently making medical treatment decisions. I have found this person to be one of the following: [] Competent to provide express and informed consent, as defined above, for voluntary admission to this facility and is competent to provide express and informed consent for treatment. He/she has the consistent capacity to make well reasoned, willful, and knowing decisions concerning his or her medical or mental health treatment. The person fully and consistently understands the purpose of the admission for examination/placement and is fully capable of personally exercising all rights assured under [place]xxx] Incompetent to provide express and informed consent to voluntary admission , and this is incompetent to provide express and informed consent to treatment. The person must be transferred to involuntary status and a petition for a guardian advocate filed with the Circuit Court. [] Refusing to provide express and informed consent to voluntary admission but is competent to provide express and informed consent for treatment. The person must be discharged or transferred to involuntary status. Form shall be completed within 24 hours of a person's arrival at the receiving facility and filed in the clinical record of each person: 1. Admitted on a voluntary basis 2. Permitted to provide express and informed consent to his/her own treatment 3. Allowed to transfer from involuntary to voluntary status 4. Prior to permitting a person to consent to his or her own treatment after having been previously found incompetent to consent to treatment. History of Present Illness Capacity: Lacks Capacity HPI Patient is a 21-year-old Afro-[place] male comes in under Youssef act dated at 1730 5 PM by the [place] [employer] that document reviewed and agreed with the document essentially stating subject was at the [place] home he got all of his personal stuff and jumped over the perimeter fence and was in [place] [address], he was at risk of being struck by a and did not realize what was going on. He was not aware of his surroundings. 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 Subject could not care for himself. Patient is seen screened in the ED urine toxicology negative blood alcohol level negative. Of interest patient was hospitalized at [place] 09/22/16 2 10/21/16 on the medical unit with a diagnosis of rhabdomyolysis it appears he barely made it to a long term and this behavior occurred and he was returned. At the present time patient pacing the halls on 0 though he is calm his developmental delays quite obvious in his responses they are childlike and somewhat petulant. But very concrete. Making essentially no eye contact with me. He gives confusing responses about returning to the long term. That appears long term might be available for him to return there on Tuesday. Patient been no behavioral problems so far. EMR has been reviewed will continue his medical medications. Unless the some significant behavioral issues will refrain from any psychotropics. I did review the EMR patient only had a few when necessary orders for low-dose Haldol through all his many visits with us it appears the been no scheduled psychotropics. Will refrain from that at the present time also. Review of Systems ROS Limitations: Altered Mental Status Past Psych History Psychological trauma history It appears patient was abandoned by his family here at [place] Violence risk - others (6 mos) Patient attempted to elope from his long term Violence risk - self (6 mos) He puts himself in harm's way with his behaviors Substance Abuse History Drugs/Alcohol past 12 months Denies Past Family Social History Coded Allergies: No Known Allergies (Unverified , 10/09/16) Past Medical History Patient with Dandy-Walker malformation Active Scripts Amlodipine (Norvasc)10 Mg Tab5 Mg PO DAILY #30 TAB Prov:Anthony Weaver MD 10/16/16 Metoprolol Tartrate 25 Mg Tab12.5 Mg PO DAILY #15 TAB Ref 6 Hold if HR <60 or SBP <110. Prov:Juliann Sanchez MD 08/17/16 Lisinopril 10 Mg Tab10 Mg PO BID #180 TAB Ref 1 Prov:Juliann Sanchez MD 08/17/16 Amlodipine (Norvasc)10 Mg Tab10 Mg PO DAILY #90 TAB Ref 1 Prov:Juliann Sanchez MD 08/17/16 Current Medications Medications (Trade) Dose Ordered Sig/Carol Route Start Time Stop Time Status Last Admin (Tylenol) 650 mg Q4H PRN PO 10/22/16 15:45 (Milk Of Magnesia Liq) 30 ml DAILY PRN PO 10/22/16 15:45 (Mag-Al Plus Susp Liq) 30 ml Q6H PRN PO 10/22/16 15:45 (Norvasc) 5 mg DAILY PO 10/24/16 09:00 (Norvasc) 10 mg DAILY PO 10/24/16 09:00 UNV (Prinivil) 10 mg BID PO 10/23/16 21:00 UNV (Lopressor) 12.5 mg DAILY PO 10/24/16 09:00 UNV Family History Patient abandoned by family Social History Patient lives in long term Patient's Strengths (min. 2) Patient has supportive long term is usually cooperative with treatment Physical Exam Patient seen screened medically cleared in the ED exam reviewed and agreed with. Patient walking in the conti in no acute distress, no respiratory distress , no complaints of pain, moving all 4 extremities without difficulty. No abnormal motor movements noted Vital Signs Vital Signs Date Time Temp Pulse Resp B/P Pulse Ox O2 Delivery O2 Flow Rate FiO2 10/23/16 06:48 97.9 93 18 139/63 100 Mental Status Examination Alert diffusely confused and disoriented and slight Afro-[place] male appears younger than stated age he is calm but guarded Appearance Clean neatly Speech: Hesitant, Slow, Other (childlike) Orientation: Person Memory: Impaired (describe) Thought Process: Loose Association Thought Content: Other (disorganized) Language Very poor Fund of Knowledge Poor Hallucination Type: None (denies) Attention and Concentration: Easily Distracted Suicidal Ideation: No Previous Suicide Attempts: No Homicidal Ideation: No Previous Homicide Attempts: No Insight: Poor Judgment: Poor Affect: Other (decreased range and intensity) Mood: Other (restricted somewhat dysphoric) Motor Activity: Normal gait Assessment & Plan Problem List: (1) Adjustment disorder with mixed disturbance of emotions and conduct ICD Code: F43.25 (2) Dandy Walker malformation ICD Code: Q03.1 Assessment & Plan Estimated LOS: 3-5 days days patient is criteria for further care and attention observation. It appears his that may be available on Tuesday to return to long term Discharge Planning To be determined Request HC Surrog/Guard Advoc?: Yes Miguel Ace MD Oct 23, 2016 10:01
[2016-10-23 18:00] VITALS: BP 151/98; PULSE 92; RESP 18; TEMP 98; O2SAT 100
[2016-10-23] MEDS: LISINOPRIL 10 MG TAB PO SCH (21:10)
[2016-10-24 06:43] VITALS: BP 118/75; PULSE 74; RESP 18; TEMP 95.8; O2SAT 95
[2016-10-24] MEDS: amLODIPine BESYLATE 5 MG TAB PO SCH (09:00)
[2016-10-24] MEDS: LISINOPRIL 10 MG TAB PO SCH ×2 (09:00→22:09)
[2016-10-24] MEDS: METOPROLOL TARTRATE 25 MG TAB PO SCH (09:00)
[2016-10-24 10:35] LABS: HEMOGLOBIN A1a 1.6 %; HEMOGLOBIN A1b 0.7 %; HEMOGLOBIN Ao 85.4 %; HEMOGLOBIN F 1.2 %; HEMOGLOBIN LA1C 1.8 %; HEMOGLOBIN P3 3.5 %
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
[2016-10-24 17:07] VITALS: BP 117/63; PULSE 58; RESP 18; TEMP 96.6; O2SAT 97
[2016-10-24 21:00] VITALS: PULSE 80
[2016-10-25 05:10] VITALS: BP 100/57; PULSE 62; RESP 16; TEMP 97.9
[2016-10-25 08:20] VITALS: BP 130/80; PULSE 80; RESP 18; TEMP 97.9; O2SAT 94
[2016-10-25] MEDS: amLODIPine BESYLATE 5 MG TAB PO SCH (08:28)
[2016-10-25] MEDS: METOPROLOL TARTRATE 25 MG TAB PO SCH (08:28)
[2016-10-25] MEDS: LISINOPRIL 10 MG TAB PO SCH ×2 (08:29→21:00)
--- NOTE | 2016-10-25 11:11 | HHI.PYPN ---
Subjective Remarks Patient seen in [place] nurse Kanwal, chart review, patient compliant medications. Patient also states is willing to return to [place]. Though he also states that at some time he would like to return home to his mother. He is no behavior problem at this time. For now continue treatment Review of Systems Except as stated in HPI: all other systems reviewed are Neg Objective Alert: Yes [place]: Person, Place, Situation Mood: Anxious Affect: Restricted Memory Intact: Comment (Not tested) Hallucinations: Other (negative) Delusions: No Delusion Type: Other (mildly vigilant) Suicidal: Ideation (negative) Homicidal: Ideation (negative) Insight/Judgment Very poor Vitals/IOs Vital Signs Date Time Temp Pulse Resp B/P Pulse Ox O2 Delivery O2 Flow Rate FiO2 10/25/16 08:20 97.9 80 18 130/80 94 Assessment & Plan Problem List: (1) Adjustment disorder with mixed disturbance of emotions and conduct ICD Code: F43.25 (2) Dandy Walker malformation ICD Code: Q03.1 Assessment & Plan Estimated LOS: days and appears patient is slowly coming back towards his baseline. He is compliant medications. For now continue treatment Justification for Cont. Inpt. At this time patient will decompensate if placed in a lower level of care Discharge Planning To be determined Request HC Surrog/Guard Advoc?: Yes Miguel Ace MD Oct 25, 2016 11:11
[2016-10-25 17:02] VITALS: BP 126/58; PULSE 74; RESP 18; TEMP 97.8; O2SAT 95
[2016-10-26 06:05] VITALS: BP 121/70; PULSE 59; RESP 16; TEMP 98.3; O2SAT 98
[2016-10-26] MEDS: LISINOPRIL 10 MG TAB PO SCH ×2 (08:14→21:00)
[2016-10-26] MEDS: amLODIPine BESYLATE 5 MG TAB PO SCH (08:15)
[2016-10-26] MEDS: METOPROLOL TARTRATE 25 MG TAB PO SCH (08:15)
--- NOTE | 2016-10-26 12:46 | HHI.PYPN ---
Subjective Remarks Patient seen in all with nurse Jaime, chart reviewed, patient compliant medication. Patient continues quite childlike simple wanting to go home with his mother, when processing need to return to the group on the agrees to that but then minutes later reiterates can I go to my mom's. Patient's cognitive deficits are obvious throughout conversation, for now continue treatment Review of Systems Except as stated in HPI: all other systems reviewed are Neg Objective Alert: Yes [place]: Person, Place, Situation Mood: Anxious Affect: Restricted Memory Intact: Comment (Not tested) Hallucinations: Other (negative) Delusions: No Delusion Type: Other (mildly vigilant) Suicidal: Ideation (negative) Homicidal: Ideation (negative) Insight/Judgment Poor Vitals/IOs Vital Signs Date Time Temp Pulse Resp B/P Pulse Ox O2 Delivery O2 Flow Rate FiO2 10/26/16 06:05 98.3 59 16 121/70 98 Assessment & Plan Problem List: (1) Adjustment disorder with mixed disturbance of emotions and conduct ICD Code: F43.25 (2) Dandy Walker malformation ICD Code: Q03.1 Assessment & Plan Estimated LOS: days patient appears to be reaching his functional baseline showing no significant obliterative process. For now continue treatment Justification for Cont. Inpt. At this time patient will decompensate placed in a lower level of care Discharge Planning To be determined Request HC Surrog/Guard Advoc?: Yes Miguel Ace MD Oct 26, 2016 12:46
[2016-10-26 15:29] VITALS: BP 116/62; PULSE 62; RESP 18; TEMP 98; O2SAT 96
[2016-10-27 06:02] VITALS: BP 101/62; PULSE 57; RESP 19; TEMP 97.1; O2SAT 96
[2016-10-27] MEDS: METOPROLOL TARTRATE 25 MG TAB PO SCH (08:33)
[2016-10-27] MEDS: LISINOPRIL 10 MG TAB PO SCH ×2 (08:33→20:31)
[2016-10-27] MEDS: amLODIPine BESYLATE 5 MG TAB PO SCH (08:33)
--- NOTE | 2016-10-27 12:56 | HHI.PYPN ---
Subjective Remarks Patient seen in [place] with floor staff, chart review, patient continues to quietly walked the halls. His been no behavioral problems, compliant medications, continue to work on placement issues. Review of Systems Except as stated in HPI: all other systems reviewed are Neg Objective Alert: Yes [place]: Person, Place, Situation Mood: Anxious Affect: Restricted Memory Intact: Comment (Not tested) Hallucinations: Other (negative) Delusions: No Delusion Type: Other (mildly vigilant) Suicidal: Ideation (negative) Homicidal: Ideation (negative) Insight/Judgment Very poor Vitals/IOs Vital Signs Date Time Temp Pulse Resp B/P Pulse Ox O2 Delivery O2 Flow Rate FiO2 10/27/16 06:02 97.1 57 19 101/62 96 Assessment & Plan Problem List: (1) Adjustment disorder with mixed disturbance of emotions and conduct ICD Code: F43.25 (2) Dandy Walker malformation ICD Code: Q03.1 Assessment & Plan Estimated LOS: days patient continues no significant behavioral problems at the present time, his cognitive deficits remain constant Justification for Cont. Inpt. Metastatic patient decompensate the placed a lower level of care Discharge Planning To be determined Request HC Surrog/Guard Advoc?: Yes Miguel Ace MD Oct 27, 2016 12:56
[2016-10-27 18:07] VITALS: BP 118/67; PULSE 86; RESP 16; O2SAT 97
[2016-10-27 21:07] VITALS: BP 126/56; PULSE 66; RESP 20; O2SAT 96
[2016-10-28 05:21] VITALS: BP 119/73; PULSE 58; RESP 16; O2SAT 99
[2016-10-28] MEDS: LISINOPRIL 10 MG TAB PO SCH ×2 (09:24→21:04)
[2016-10-28] MEDS: METOPROLOL TARTRATE 25 MG TAB PO SCH (09:24)
[2016-10-28] MEDS: amLODIPine BESYLATE 5 MG TAB PO SCH (09:24)
--- NOTE | 2016-10-28 11:46 | HHI.PYPN ---
Subjective Remarks Patient seen in [place] [address] retained by [facility] chart reviewed. Patient compliant medication. Continue to work on placement issues with patient Review of Systems Except as stated in HPI: all other systems reviewed are Neg Objective Alert: Yes [place]: Person, Place, Situation Mood: Anxious Affect: Restricted Memory Intact: Comment (Not tested) Hallucinations: Other (negative) Delusions: No Delusion Type: Other (mildly vigilant) Suicidal: Ideation (negative) Homicidal: Ideation (negative) Insight/Judgment Very Poor Vitals/IOs Vital Signs Date Time Temp Pulse Resp B/P Pulse Ox O2 Delivery O2 Flow Rate FiO2 10/28/16 05:21 58 16 119/73 99 10/27/16 06:02 97.1 Assessment & Plan Problem List: (1) Adjustment disorder with mixed disturbance of emotions and conduct ICD Code: F43.25 (2) Dandy Walker malformation ICD Code: Q03.1 Assessment & Plan Estimated LOS: days this time patient showing no significant behavioral problems continues to pace the conti respond very childlike manner. Is been no significant behavioral problems Justification for Cont. Inpt. At this time patient may decompensate if not placed in an appropriate level of care Discharge Planning To be determined Request HC Surrog/Guard Advoc?: Yes Miguel Ace MD Oct 28, 2016 11:46
[2016-10-28 18:00] VITALS: BP 134/57; PULSE 61; RESP 17; TEMP 98.8; O2SAT 97
[2016-10-29 05:34] VITALS: BP 111/57; PULSE 84; RESP 16; TEMP 98; O2SAT 98
[2016-10-29 08:27] VITALS: BP 143/86; PULSE 91
[2016-10-29] MEDS: amLODIPine BESYLATE 5 MG TAB PO SCH (08:47)
[2016-10-29] MEDS: METOPROLOL TARTRATE 25 MG TAB PO SCH (08:47)
[2016-10-29] MEDS: LISINOPRIL 10 MG TAB PO SCH ×2 (08:47→21:00)
--- NOTE | 2016-10-29 13:42 | HHI.PYPN ---
Subjective Remarks Patient seen in [place] with Lucien, patient Perlita show his cognitive deficits saying he was returned to his brother's house, then seeing he will go to his senior living. He is otherwise been no behavioral problems, compliant medications Review of Systems Except as stated in HPI: all other systems reviewed are Neg Objective Alert: Yes [place]: Person, Place, Situation Mood: Anxious Affect: Restricted Memory Intact: Comment (Not tested) Hallucinations: Other (negative) Delusions: No Delusion Type: Other (mildly vigilant) Suicidal: Ideation (negative) Homicidal: Ideation (negative) Insight/Judgment Poor Vitals/IOs Vital Signs Date Time Temp Pulse Resp B/P Pulse Ox O2 Delivery O2 Flow Rate FiO2 10/29/16 08:27 91 143/86 10/29/16 05:34 98.0 16 98 Assessment & Plan Problem List: (1) Adjustment disorder with mixed disturbance of emotions and conduct ICD Code: F43.25 (2) Dandy Walker malformation ICD Code: Q03.1 Assessment & Plan Estimated LOS: days patient appears to be reaching baseline at this time is compliant medications. Now continue treatment continue to work on placement Justification for Cont. Inpt. At this time patient will decompensate if placed in the lower level of care Discharge Planning To be determined Request HC Surrog/Guard Advoc?: Yes Miguel Ace MD Oct 29, 2016 13:42
[2016-10-29 18:00] VITALS: BP 120/52; PULSE 54; RESP 16; O2SAT 95
[2016-10-30 05:25] VITALS: BP 105/60; PULSE 46; RESP 16; TEMP 98.6
[2016-10-30 08:11] VITALS: BP 134/75; PULSE 75
[2016-10-30] MEDS: LISINOPRIL 10 MG TAB PO SCH ×2 (08:13→21:00)
[2016-10-30] MEDS: amLODIPine BESYLATE 5 MG TAB PO SCH (08:14)
[2016-10-30] MEDS: METOPROLOL TARTRATE 25 MG TAB PO SCH (08:14)
--- NOTE | 2016-10-30 11:18 | HHI.PYPN ---
Subjective Remarks Patient was seen and case discussed with nursing. Patient is pleasant and cooperative with exam. Behaving well on the unit. Alert and oriented times two. Denies auditory or visual hallucinations. Objective Alert: Yes [place]: Person, Place, Situation Mood: Anxious Affect: Blunted Memory Intact: Comment (Not tested) Hallucinations: Other (negative) Delusions: No Delusion Type: Other (mildly vigilant) Suicidal: Ideation (negative) Homicidal: Ideation (negative) Insight/Judgment Poor Vitals/IOs Vital Signs Date Time Temp Pulse Resp B/P Pulse Ox O2 Delivery O2 Flow Rate FiO2 10/30/16 08:11 75 134/75 10/30/16 05:25 98.6 16 10/29/16 18:00 95 Assessment & Plan Problem List: (1) Adjustment disorder with mixed disturbance of emotions and conduct ICD Code: F43.25 (2) Dandy Walker malformation ICD Code: Q03.1 Assessment & Plan Continue current treatment plan Justification for Cont. Inpt. Patient will decompensate in a less restrictive setting Request HC Surrog/Guard Advoc?: Yes Chapo Woodward DO Oct 30, 2016 11:18
[2016-10-30 18:39] VITALS: BP 113/56; PULSE 55; RESP 16; TEMP 97.9; O2SAT 96
[2016-10-31 06:16] VITALS: BP 99/58; PULSE 52; RESP 16; TEMP 98.2; O2SAT 99
[2016-10-31] MEDS: METOPROLOL TARTRATE 25 MG TAB PO SCH (09:13)
[2016-10-31] MEDS: LISINOPRIL 10 MG TAB PO SCH ×2 (09:13→21:01)
[2016-10-31] MEDS: amLODIPine BESYLATE 5 MG TAB PO SCH (09:13)
[2016-10-31 15:24] VITALS: BP 105/56; PULSE 47; RESP 18; TEMP 97.6; O2SAT 100
--- NOTE | 2016-10-31 15:32 | HHI.PYPN ---
Subjective Remarks Patient was seen and case discussed with nursing. Review of vital signs reveals bradycardia and hypotension. We will get an EKG and a medical consult. Per nursing is been most reclusive today, not going to groups her going outside. Mood is "good." Affect is euthymic. Denies auditory visual hallucinations. Denies suicidal ideation intent or plan Objective Alert: Yes [place]: Person, Place, Situation Mood: Calm Affect: Restricted Memory Intact: Comment (Not tested) Hallucinations: Other (negative) Delusions: No Delusion Type: Other (mildly vigilant) Suicidal: Ideation (negative) Homicidal: Ideation (negative) Insight/Judgment Poor Vitals/IOs Vital Signs Date Time Temp Pulse Resp B/P Pulse Ox O2 Delivery O2 Flow Rate FiO2 10/31/16 15:24 97.6 47 18 105/56 100 Assessment & Plan Problem List: (1) Adjustment disorder with mixed disturbance of emotions and conduct ICD Code: F43.25 (2) Dandy Walker malformation ICD Code: Q03.1 Assessment & Plan Vitals every 6 hours, EKG, medical consult Justification for Cont. Inpt. Patient would decompensate in a less restrictive setting Request HC Surrog/Guard Advoc?: Yes Chapo Woodward DO Oct 31, 2016 15:32
--- NOTE | 2016-10-31 18:03 | PD.CONS ---
HPI Service [facility] Consult Requested By Psychiatry team Reason for Consult Bradycardia Primary Care Physician No Primary Care Physician Diagnoses: History of Present Illness Written by Maranda Sanchez, acting as scribe for Dr. Weaver on 10/31/16 at 17: 51. Patient is a 21-year-old male with primary medical history of Dandy-Walker malformation, mental retardation with total self-care deficit, HTN who came into the hospital under [place]. Per review of records, patient was discharged to following a short stay for rhabdomyolysis, upon return home to his assisted living facility, patient attempted to leave, climbing defensive the premises and finding himself in the street, unaware of the risk associated with this. She is now admitted to inpatient psychiatry unit for further evaluation. Consulted for bradycardia. Patient seen and examined today. Reports he is doing okay. States he's been walking around but now he is resting. Denies pain and discomfort. Denies SOB/ dyspnea. Denies chest pain, palpitations, headaches, dizziness. Denies fevers, chills, n/v/d. Review of Systems ROS Limitations: Poor Historian Past Family Social History Allergies: Coded Allergies: No Known Allergies (Unverified , 10/09/16) Past Medical History Review of medical records HTN Dandy-Walker malformation Mental retardation Bradycardia Past Surgical History Per review of records None Reported Medications Reported Meds & Active Scripts Active Norvasc (Amlodipine Besylate) 10 Mg Tab 5 Mg PO DAILY Metoprolol Tartrate 25 Mg Tab 12.5 Mg PO DAILY Hold if HR <60 or SBP <110. Lisinopril 10 Mg Tab 10 Mg PO BID Norvasc (Amlodipine Besylate) 10 Mg Tab 10 Mg PO DAILY Active Ordered Medications Current Medications Medications (Trade) Dose Ordered Sig/Carol Route Start Time Stop Time Status Last Admin (Tylenol) 650 mg Q4H PRN PO 10/22/16 15:45 (Milk Of Magnesia Liq) 30 ml DAILY PRN PO 10/22/16 15:45 (Mag-Al Plus Susp Liq) 30 ml Q6H PRN PO 10/22/16 15:45 (Norvasc) 5 mg DAILY PO 10/24/16 09:00 10/31/16 09:13 (Prinivil) 10 mg BID PO 10/23/16 21:00 10/31/16 09:13 (Pill Splitter) 1 ea UNSCH PRN OTHER 10/23/16 10:00 Family History Per review of records, no family history of diabetes, heart disease Social History Denies alcohol use Denies tobacco use Denies illicit drug use Physical Exam Vital Signs Vital Signs Date Time Temp Pulse Resp B/P Pulse Ox O2 Delivery O2 Flow Rate FiO2 10/31/16 15:24 97.6 47 18 105/56 100 10/31/16 06:16 98.2 52 16 99/58 99 10/30/16 18:39 97.9 55 16 113/56 96 Physical Exam GENERAL: This is a short stature, well-nourished, well-developed patient, in no apparent distress. SKIN: No rashes, ecchymoses or lesions. Cool and dry. HEAD: Atraumatic. Normocephalic. No temporal or scalp tenderness. EYES: Pupils equal round and reactive. Extraocular motions intact. No scleral icterus. No injection or drainage. ENT: Nose without bleeding. Throat without erythema. Uvula midline. Airway patent. NECK: Trachea midline. Supple. CARDIOVASCULAR: Bradycardia without murmurs, gallops, or rubs. RESPIRATORY: Clear to auscultation. Breath sounds equal bilaterally. No wheezes , rales, or rhonchi. GASTROINTESTINAL: Abdomen soft, non-tender, nondistended. Bowel sounds active 4.` MUSCULOSKELETAL: Extremities without clubbing, cyanosis, or edema. NEUROLOGICAL: Awake and alert. Oriented to person, place. Motor and sensory grossly within normal limits. Normal speech. Assessment and Plan Problem List: (1) Dandy Walker malformation ICD Code: Q03.1 Status: Chronic (2) HTN (hypertension) ICD Code: I10 Status: Chronic (3) Bradycardia ICD Code: R00.1 Status: Acute Assessment and Plan Patient is a 21-year-old male with primary medical history of Dandy-Walker malformation, mental retardation with total self-care deficit, HTN who came into the hospital under [place]. Per review of records, patient was discharged to following a short stay for rhabdomyolysis, upon return home to his assisted living facility, patient attempted to leave, climbing defensive the premises and finding himself in the street, unaware of the risk associated with this. She is now admitted to inpatient psychiatry unit for further evaluation. Consulted for bradycardia. Dandy-Walker malformation, mental recommendation would self-care deficit - Managed by psychiatry team Bradycardia, asymptomatic - Patient has known bradycardia since 2012, he was admitted recently to inpatient acute care unit where in he was also diagnosed with bradycardia. EKG was sinus bradycardia, short HI interval. Patient was on Lopressor during that time as an outpatient and it was discontinued. - As per review of medical records, Patient was restarted back on metoprolol during this recent admission to inpatient psychiatry unit. - Discontinue metoprolol. - EKG reviewed by me bradycardia, heart rate of 40, short HI interval, no ST changes noted - Notified RN to make incident report about medication reconciliation. Metoprolol should not be on patient lists since his discharge to the acute care setting last 10/21/16. HTN - Continue amlodipine 5 mg daily with hold parameters, lisinopril 10 mg twice a day with hold parameters - Monitor BP trend DVT prop ambulatory Thank you for this consultation. We will follow patient with you. Code Status Full code Discussed Condition With Patient, nursing This note was transcribed by Dr. Anthony Arboleda personally performed the history, physical exam, and medical decision making; and confirmed the accuracy of the information in the transcribed note. Authenticated by Dr. Anthony Weaver on 10/31/16 at 17:51. Maranda Powell Oct 31, 2016 18:03 Anthony Weaver MD Oct 31, 2016 18:55
[2016-10-31 18:45] VITALS: BP 94/59; PULSE 70; O2SAT 99
[2016-10-31 20:32] VITALS: BP 105/66; PULSE 47; RESP 18; TEMP 97.6; O2SAT 100
[2016-11-01 06:39] VITALS: BP 97/59; PULSE 58; RESP 16; TEMP 97.5; O2SAT 100
[2016-11-01] MEDS: LISINOPRIL 10 MG TAB PO SCH ×2 (09:00→20:41)
[2016-11-01] MEDS: amLODIPine BESYLATE 5 MG TAB PO SCH (09:00)
[2016-11-01 09:16] VITALS: BP 112/54; PULSE 55
--- NOTE | 2016-11-01 13:15 | HHI.PYPN ---
Subjective Remarks Patient discussed with treatment team, chart reviewed, patient compliant medications. Patient seen on unit with Dr. Koroma. Patient continues calm cooperative no behavioral problems. Now willing to return to long-term. It appears a bed may be available tomorrow in his long-term Review of Systems Except as stated in HPI: all other systems reviewed are Neg Objective Alert: Yes [place]: Person, Place, Situation Mood: Calm Affect: Restricted Memory Intact: Comment (Not tested) Hallucinations: Other (negative) Delusions: No Delusion Type: Other (mildly vigilant) Suicidal: Ideation (negative) Homicidal: Ideation (negative) Insight/Judgment Poor Vitals/IOs Vital Signs Date Time Temp Pulse Resp B/P Pulse Ox O2 Delivery O2 Flow Rate FiO2 11/01/16 09:16 55 112/54 11/01/16 06:39 97.5 16 100 Assessment & Plan Problem List: (1) Adjustment disorder with mixed disturbance of emotions and conduct ICD Code: F43.25 (2) Dandy Walker malformation ICD Code: Q03.1 Assessment & Plan Estimated LOS: days patient showing no behavior problems, continues to do well , appears to be willing to return to his long-term. The may be a bed available tomorrow. Will consider adding small dose of when necessary Ativan to assist with behavior issues me occurring long-term that do not occur here Justification for Cont. Inpt. At this time patient may decompensate not placed in an appropriate level of care Discharge Planning To be determined Request HC Surrog/Guard Advoc?: Yes Miguel Ace MD Nov 01, 2016 13:15
--- NOTE | 2016-11-01 13:56 | PD.TTN ---
Present for Treatment Team Treatment Team Staff: Provider (Dr. Ace), Nurse (Jaime), Psych Therapist (Hyun), Occupational Therapist (Gracy) Patient Problems 1. Discharge planning 2. Medication compliance 3. Knowledge deficit 4. Lack of coping skills Progress Toward Goals Provider Input: Patient is behaving well on the unit, with childlike affect. Patient will be discharged tomorrow with some ativan PRN back to [place]. otherwise patient is compliant and cooperative. Nurse Input: Patient has had no behavioral issues on the unit, patient is complaint and cooperative and is somewhat isolated to himself. patient is noted to be pacing around the conti, but is pleasant. Psych Therapist Input: Patient is somewhat isolative, but is cooperative and calm. Patient has a very childlike affect and is easily redirectable. Counselor discussed coping skills and goals with patient once he returns back to [place]. Occupational Therapist Input: Patient is somewhat isolative in group but can be encouraged to be involved. Hyun Esqueda RMI Nov 01, 2016 13:56
--- NOTE | 2016-11-01 15:47 | HHI.PR ---
Addendum to Inpatient Note Addendum Reason: Additional Documentation Additional Information Medically Stable. Heart Rate improved. Stable from Hospitalist standpoint. We will sign off. Reconsult as needed. Maranda Powell Nov 01, 2016 3:47 pm
[2016-11-01 17:07] VITALS: BP 131/68; PULSE 53; RESP 18; TEMP 97.7; O2SAT 98
--- NOTE | 2016-11-01 19:57 | EKG ---
Date Performed: 10/31/2016 Time Performed: 15:50:11 PTAGE: 21 years EKG: SINUS BRADYCARDIA WITH SHORT OR INTERVAL BORDERLINE ECG PREVIOUS TRACING : 10/13/2016 16.38 Since previous tracing, no significant change noted DOCTOR: Cari Bianchi Interpretating Date/Time 11/01/2016 19:56:52
[2016-11-02 06:05] VITALS: BP 98/59; PULSE 45; RESP 16; TEMP 98.3; O2SAT 99
[2016-11-02] MEDS: amLODIPine BESYLATE 5 MG TAB PO SCH ×2 (08:35→08:39)
[2016-11-02] MEDS: LISINOPRIL 10 MG TAB PO SCH ×2 (08:36→08:39)
[2016-11-02] MEDS ORDERED: LORA-392 PO (12:05)
[2016-11-02] MEDS ORDERED: LISI10TA3 PO (12:05)
[2016-11-02] MEDS ORDERED: AMLO5 PO (12:05)
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
== END 2016-11-02 15:00 | DRG 882 ==
LOC: NEPD 18:01 → NEDA 10-22 15:44 → H260 10-22 16:40
PROVIDERS: ADMIT Psychiatry & Neurology Psychiatry; ATTEND Psychiatry & Neurology Psychiatry
DX: F43.25 Adjustment disorder with mixed disturbance of emotions and conduct (principal); F79 Unspecified intellectual disabilities; I10 Essential (primary) hypertension; Q03.1 Atresia of foramina of Magendie and Luschka; R00.1 Bradycardia, unspecified
CPT/HCPCS: 80048; 80061; 83036; 93005

== ENCOUNTER 2016-11-14 18:47 | Inpatient (IN) | payer MEDICAID ==
[~2016-11-14] VITALS: Ht 157.5 cm; Wt 50.2 kg
[~2016-11-14 18:47] MED LIST changes: +AMLO5 PO; +LORA-392 PO
[2016-11-14 18:49] VITALS: BP 148/76; PULSE 100; RESP 16; TEMP 99.3; O2SAT 95
--- NOTE | 2016-11-14 19:18 | PD ---
HPI Chief Complaint: Psychiatric Symptoms Time Seen by Provider: 19:07 Travel History International Travel<30 days: No Contact w/Intl Traveler<30days: No Traveled to known affect area: No History of Present Illness HPI 21-year-old male with history of developmental and mental delay, brought in from his living facility at [facility] by his caregiver because the patient has tried to escape from the facility several times today. Patient reports that he does not want to live where he currently is. He denies suicidal or homicidal ideation. He is overall pleasant and cooperative. No physical complaints. PFSH Past Medical History Arthritis: No Blood Disorders: No Anxiety: No Depression: No Heart Rhythm Problems: Yes (TACHYCARDIA ) Cancer: No Cardiovascular Problems: Yes (hypertension) High Cholesterol: No Chest Pain: No Congestive Heart Failure: No Cerebrovascular Accident: No Diminished Hearing: No Endocrine: No GERD: No Genitourinary: No Headaches: No Hiatal Hernia: No Hypertension: Yes Immune Disorder: No Musculoskeletal: Yes (DANDY WALKER SYNDROME) Neurologic: Yes (DANDY WALKER SYNDROME) Reproductive: No Respiratory: No Immunizations Current: Yes Migraines: No Seizures: No Ulcer: No Social History Alcohol Use: No Tobacco Use: No Substance Use: No Allergies-Medications (Allergen,Severity, Reaction): Coded Allergies: No Known Allergies (Unverified , 11/14/16) Reported Meds & Prescriptions Reported Meds & Active Scripts Active Ativan (Lorazepam) 0.5 Mg Tab 0.5 Mg PO Q8H PRN Norvasc (Amlodipine Besylate) 10 Mg Tab 5 Mg PO DAILY Metoprolol Tartrate 25 Mg Tab 12.5 Mg PO DAILY Hold if HR <60 or SBP <110. Lisinopril 10 Mg Tab 10 Mg PO BID Review of Systems Except as stated in HPI: all other systems reviewed are Neg Physical Exam Narrative GENERAL: Well-developed, well-nourished, sitting comfortably on stretcher, no apparent distress. SKIN: Focused skin assessment warm/dry. No rash. HEAD: Atraumatic. Normocephalic. EYES: Pupils equal and round. No scleral icterus. No injection or drainage. ENT: No nasal bleeding or discharge. Mucous membranes pink and moist. NECK: Trachea midline. No JVD. No nuchal rigidity. CARDIOVASCULAR: Regular rate and rhythm. No murmur appreciated. RESPIRATORY: No accessory muscle use. Clear to auscultation. Breath sounds equal bilaterally. GASTROINTESTINAL: Abdomen soft, non-tender, nondistended. Hepatic and splenic margins not palpable. MUSCULOSKELETAL: No obvious deformities. No clubbing. No cyanosis. No edema. NEUROLOGICAL: Awake and alert. No obvious cranial nerve deficits. Motor grossly within normal limits. Normal speech. PSYCHIATRIC: Flat affect. Poor eye contact. Data Data Last Documented VS Vital Signs Date Time Temp Pulse Resp B/P Pulse Ox O2 Delivery O2 Flow Rate FiO2 11/14/16 18:49 99.3 100 16 148/76 95 Room Air MDM Medical Decision Making Medical Screen Exam Complete: Yes Emergency Medical Condition: Yes Differential Diagnosis Agitated behavior, intermittent explosive behavior, developmental delay, Narrative Course Vital signs reviewed. Physical exam is unremarkable. The patient is pleasant and cooperative. He is medically cleared for psychiatric evaluation and disposition by them. Diagnosis Primary Impression: Agitation Dinesh Patterson MD Nov 14, 2016 19:18
[2016-11-14 20:00] VITALS: BP 144/83; PULSE 76; RESP 16; TEMP 98.7; O2SAT 98
[2016-11-14 22:00] VITALS: BP 106/59; PULSE 64; RESP 16; TEMP 97.7; O2SAT 98
[2016-11-15 02:00] VITALS: BP 104/63; PULSE 90; RESP 16; TEMP 97.7; O2SAT 98
[2016-11-15 06:15] VITALS: BP 106/58; PULSE 62; RESP 16; TEMP 98.5; O2SAT 100
--- NOTE | 2016-11-15 12:37 | PD ---
History of Present Illness Chief Complaint: Psychiatric Symptoms Time Seen by Provider: 12:00 Travel History International Travel<30 Days: No Contact w/Intl Traveler<30days: No Known affected area: No Legal Status Legal Status: Voluntary History of Present Illness: This is a 21-year-old male with a history of Dandy Walker syndrome. He has obvious developmental delays and a history of same. He was treated here at [place], on the psychiatric service, approximately 2 weeks ago and placed at [facility]. According to reports, the patient attempted to leave the center several times today and was sent here voluntarily for evaluation and treatment. The patient is calm, pleasant and mostly cooperative. He denies any suicidal or homicidal ideation, plan or intent. He is obviously cognitively limited but this is felt to be a long-standing problem as a result of his developmental delay. He does not meet criteria for Youssef act and he is here voluntarily. However, he does not wish to stay at [place] because it is "boring". At this time, the patient wants to leave intermittently but has no plan to care for himself. He states he has no money. He does not know where he is going to go. He does not know how he will care for himself. This physician spoke with Any Marcos and apparently the patient has a "termite control servicer" rn field case manager by the name of Johann maravilla. She is contacting Mr. maravilla for further assistance. The patient was admitted here apparently 2 weeks ago and minimal psychiatric progress was made. Patient continues to be a placement issue at this time. PFS Past Medical History Arthritis: No Blood Disorders: No Anxiety: No Depression: No Heart Rhythm Problems: Yes (TACHYCARDIA ) Cancer: No Cardiovascular Problems: Yes (hypertension) High Cholesterol: No Chest Pain: No Congestive Heart Failure: No Cerebrovascular Accident: No Diminished Hearing: No Endocrine: No GERD: No Genitourinary: No Headaches: No Hiatal Hernia: No Hypertension: Yes Immune Disorder: No Musculoskeletal: Yes (DANDY WALKER SYNDROME) Neurologic: Yes (DANDY WALKER SYNDROME) Reproductive: No Respiratory: No Immunizations Current: Yes Migraines: No Seizures: No Ulcer: No Psychiatric History Psychiatric History Hx Psychiatric Treatment: Last [facility] admit for adjustment disorder October 22-2016 on 2700 unit. History of Inpatient Treatment: Yes Guns or firearms in home: No Social History Hx Alcohol Use: No Hx Tobacco Use: No Hx Substance Use: No Hx of Substance Use Treatment: No Allergies-Medications (Allergen,Severity, Reaction): Coded Allergies: No Known Allergies (Unverified , 11/14/16) Reported Meds & Prescriptions Reported Meds & Active Scripts Active Ativan (Lorazepam) 0.5 Mg Tab 0.5 Mg PO Q8H PRN Norvasc (Amlodipine Besylate) 10 Mg Tab 5 Mg PO DAILY Metoprolol Tartrate 25 Mg Tab 12.5 Mg PO DAILY Hold if HR <60 or SBP <110. 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 Patient does not qualify for a Youssef act as this condition is a developmental delay as opposed to a acute psychiatric illness disorder. However, he remains a placement issue and will stay in the emergency department while we attempt to find appropriate placement. Orders Psych Screen (11/14/16 19:19) Diet Regular Basic (11/15/16 Breakfast) Diet Regular Basic (11/15/16 Lunch) Results Vital Signs Date Time Temp Pulse Resp B/P Pulse Ox O2 Delivery O2 Flow Rate FiO2 11/15/16 06:15 98.5 62 16 106/58 100 11/15/16 02:00 97.7 90 16 104/63 98 Room Air 11/14/16 22:00 97.7 64 16 106/59 98 Room Air 11/14/16 20:00 98.7 76 16 144/83 98 Room Air 11/14/16 18:49 99.3 100 16 148/76 95 Room Air Diagnosis Primary Impression: Mental retardation Andi Avila MD Nov 15, 2016 12:37
[2016-11-15 22:55] VITALS: BP 111/57; PULSE 52; RESP 20; O2SAT 98
[2016-11-16 02:22] VITALS: RESP 18
[2016-11-16 06:35] VITALS: RESP 16
[2016-11-16 10:37] VITALS: BP 110/64; PULSE 50; RESP 18; O2SAT 99
[2016-11-16 14:12] VITALS: BP 137/75; PULSE 54; RESP 16; O2SAT 100
[2016-11-16] MEDS ORDERED: ACETAMINOPHEN 325 MG TAB PO PRN (18:15)
[2016-11-16] MEDS ORDERED: MAGNESIUM HYDROXIDE SUSP 30 ML CUP PO PRN (18:15)
[2016-11-16] MEDS ORDERED: ALUMINUM/MAGNESIUM/SIMETH 30 ML CUP PO PRN (18:15)
[2016-11-16] MEDS ORDERED: REMOVE OLD NICODERM (NICOTINE) PATCH T-DERMAL SCH (21:00)
[2016-11-16] MEDS ORDERED: diphenhydrAMINE HCL 50 MG/ML VIAL IM PRN (21:00)
[2016-11-16] MEDS ORDERED: diphenhydrAMINE HCL 50 MG CAP PO PRN (21:00)
[2016-11-16] MEDS ORDERED: LORazepam 1 MG TAB PO PRN (21:30)
[2016-11-16] MEDS ORDERED: LORazepam 2 MG/ML VIAL IM PRN (21:30)
[2016-11-16 21:31] VITALS: BP 151/78; PULSE 62; RESP 17; TEMP 98.4
[2016-11-17 05:31] VITALS: BP 111/65; PULSE 55; RESP 18; TEMP 97.7; O2SAT 98
[2016-11-17] MEDS ORDERED: NICOTINE 21 MG/24 HR PATCH T-DERMAL SCH (09:00)
[2016-11-17 11:14] LABS: ANION GAP 9 MEQ/L (5-15); BICARBONATE 27.6 MEQ/L (21.0-32.0); BLOOD UREA NITROGEN 17 MG/DL (7-18); CHLORIDE 101 MEQ/L (98-107); GLOMERULAR FILTRATION RATE 116 ML/MIN (>89); POTASSIUM 3.7 MEQ/L (3.5-5.1); SODIUM (NA) 138 MEQ/L (136-145)
[2016-11-17 11:17] LABS: HDL CHOLESTEROL 59.3 MG/DL (40.0-60.0); LDL CHOLESTEROL 116 MG/DL (0-99)
[2016-11-17 11:43] LABS: HEMOGLOBIN A1a 0.8 %; HEMOGLOBIN A1b 0.7 %; HEMOGLOBIN F 1.2 %; HEMOGLOBIN LA1C 1.7 %; HEMOGLOBIN P3 3.3 %
--- NOTE | 2016-11-17 12:19 | HHI.HP ---
Provisional Diagnosis Admission Date Nov 16, 2016 at 18:11 [place] I. No diagnosis on [place] I at this time [place] II. 1. Intellectual disability Certification of Person's Competence To Provide Express and Informed Consent I have personally examined Elia Cabello , a person being served at [facility] on, Nov 17, 2016 12:19. Express and informed consent means consent voluntarily given in writing, by a competent person, after sufficient explanation and disclosure of the subject matter involved to enable the person to make a knowing and willful decision without any element of force, fraud, deceit, duress, or other form of constraint or coercion. This person is 18 years of age or older, is not now known to be incompetent to consent to treatment with a guardian advocate, and does not have a health care surrogate or proxy currently making medical treatment decisions. I have found this person to be one of the following: [] Competent to provide express and informed consent, as defined above, for voluntary admission to this facility and is competent to provide express and informed consent for treatment. He/she has the consistent capacity to make well reasoned, willful, and knowing decisions concerning his or her medical or mental health treatment. The person fully and consistently understands the purpose of the admission for examination/placement and is fully capable of personally exercising all rights assured [place] [x] Incompetent to provide express and informed consent to voluntary admission, and this is incompetent to provide express and informed consent to treatment. The person must be transferred to involuntary status and a petition for a guardian advocate filed with the Circuit Court. [] Refusing to provide express and informed consent to voluntary admission but is competent to provide express and informed consent for treatment. The person must be discharged or transferred to involuntary status. Form shall be completed within 24 hours of a person's arrival at the receiving facility and filed in the clinical record of each person: 1. Admitted on a voluntary basis 2. Permitted to provide express and informed consent to his/her own treatment 3. Allowed to transfer from involuntary to voluntary status 4. Prior to permitting a person to consent to his or her own treatment after having been previously found incompetent to consent to treatment. History of Present Illness Capacity: Lacks Capacity HPI Mr. Cabelol is a 21 year-old male with a history of intellectual disability and Dandy Walker syndrome who is presently admitted to the inpatient psychiatric unit under a Youssef act. Reviewing the documentation from the emergency room, it appears that the patient tried to elope several times from his facility. The patient was evaluated by Dr. 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 Patient does not qualify for a Youssef act as this condition is a developmental delay as opposed to a acute psychiatric illness disorder. However, he remains a placement issue and will stay in the emergency department while we attempt to find appropriate placement." Patient was subsequently admitted to the inpatient psychiatric unit for unclear reasons. Reviewing the electronic medical record, I note that the patient was admitted in October under Dr. Ace. Patient seen and examined with nurse. Chart reviewed. Case discussed with nursing staff. No behavioral issues noted. On my examination today, the patient is quite childlike and euthymic. He says that he is "looking for a new place to live. I didn't like the place that they put me in." He denies having any particular difficulties in his facility but says that he just didn't like it there. He denies any issues with low mood or elevated mood, nor can I elicit any depressive or hypomanic/manic symptoms at this time. He denies any audiovisual hallucinations and I can elicit no delusional material. Sleep and appetite are fair. He denies any suicidal or homicidal ideation, intent or plan. The remainder of the psychiatric ROS is negative. The patient wishes to be retained on the inpatient unit until new placement can be found. Patient is unable to provide meaningful past psychiatric, family, chemical dependency or social history because of his degree of cognitive impairment. Review of Systems ROS Limitations: Poor Historian Except as stated in HPI: all other systems reviewed are Neg Past Psych History Psychological trauma history No reported trauma history to me Violence risk - others (6 mos) Likely a component of chronic risk related to impulsivity associated with intellectual disability. Denies homicidal ideation at this time. No evidence of violence on the inpatient unit. Violence risk - self (6 mos) Likely a component of chronic risk related to impulsivity associated with intellectual disability. Denies suicidal ideation at this time. Substance Abuse History Drugs/Alcohol past 12 months See above Past Family Social History Coded Allergies: No Known Allergies (Unverified , 11/14/16) Past Medical History History of Dandy-Walker syndrome. See electronic medical records. Active Scripts Lorazepam (Ativan)0.5 Mg Tab0.5 Mg PO Q8H PRN (ANXIETY AND/OR AGITATION) #30 TAB Ref 0 Prov:Miguel Ace MD 11/02/16 Amlodipine (Norvasc)10 Mg Tab5 Mg PO DAILY #30 TAB Prov:Anthony Weaver MD 10/16/16 Metoprolol Tartrate 25 Mg Tab12.5 Mg PO DAILY #15 TAB Ref 6 Hold if HR <60 or SBP <110. Prov:Juliann Sanchez MD 08/17/16 Lisinopril 10 Mg Tab10 Mg PO BID #180 TAB Ref 1 Prov:Juliann Sanchez MD 08/17/16 Discontinued Scripts Lisinopril 10 Mg Tab10 Mg PO BID #60 TAB Ref 0 Prov:Miguel Ace MD 11/02/16 Amlodipine (Norvasc)5 Mg Tab5 Mg PO DAILY #30 TAB Ref 0 Prov:Miguel Ace MD 11/02/16 Amlodipine (Norvasc)10 Mg Tab10 Mg PO DAILY #90 TAB Ref 1 Prov:Juliann Sanchez MD 08/17/16 Current Medications Medications (Trade) Dose Ordered Sig/Carol Route Start Time Stop Time Status Last Admin (Tylenol) 650 mg Q4H PRN PO 11/16/16 18:15 (Milk Of Magnesia Liq) 30 ml DAILY PRN PO 11/16/16 18:15 (Mag-Al Plus Susp Liq) 30 ml Q6H PRN PO 11/16/16 18:15 (Habitrol 21 Mg Patch.24 Hr) 1 patch DAILY T-DERMAL 11/17/16 09:00 Miscellaneous Information 1 HS T-DERMAL 11/16/16 21:00 (Benadryl) 50 mg Q6H PRN PO 11/16/16 21:00 Hold (Benadryl Inj) 50 mg Q6H PRN IM 11/16/16 21:00 Hold (Ativan) 1 mg Q6H PRN PO 11/16/16 21:30 Hold (Ativan Inj) 1 mg Q6H PRN IM 11/16/16 21:30 Hold Family History See above Social History See above Patient's Strengths (min. 2) In monitored setting. Verbally fluent. Physical Exam Physical exam completed by ED provider. On my examination today, the patient appears to be in no acute physical distress. No motor abnormalities noted. Laboratories and vitals signs reviewed: Vital Signs Vital Signs Date Time Temp Pulse Resp B/P Pulse Ox O2 Delivery O2 Flow Rate FiO2 11/17/16 05:31 97.7 55 18 111/65 98 11/16/16 14:12 Room Air Lab Results Item Value Date Time Sodium Level 138 MEQ/L 11/17/16 0949 Potassium Level 3.7 MEQ/L 11/17/16 0949 Chloride Level 101 MEQ/L 11/17/16 0949 Carbon Dioxide Level 27.6 MEQ/L 11/17/16 0949 Blood Urea Nitrogen 17 MG/DL 11/17/16 0949 Creatinine 0.98 MG/DL 11/17/16 0949 Hemoglobin A1c 5.1 % 11/17/16 0949 Mental Status Examination Patient is in hospital gown. He is somewhat disheveled but maintaining basic hygiene. He is awake and alert and oriented to person and hospital. No evidence of delirium. No motor abnormalities noted. Speech is within normal limits for rate, tone and volume. Language and fund of knowledge impaired. Focus and concentration somewhat scattered, I suspect as a consequence of his intellectual disability. Mood is good and affect is euthymic if childlike. Thought processes linear. No loosening of associations. No delusions elicited. Denies audiovisual hallucinations. Denies suicidal or homicidal ideation, intent or plan. Insight and judgment are chronically poor. Assessment & Plan Problem List: (1) Intellectual disability ICD Code: F79 Assessment & Plan This is a 21-year-old male presently admitted to the inpatient psychiatric unit under a Youssef act. I can detect no unstable mental illness as defined under the Youssef act criteria in this patient at this time. His intellectual disability likely renders him incapacitated to consent for admission. I am told by the counselor that his facility may not accept him back. If there is no evidence of qualifying mental illness during the period of observation allowed by the Youssef Act (legal administrative secretary informs me BA will on 11/18/16 at 1822) then we need to find some alternative disposition for him. I have instructed the counselor to move with luis to arrange this. Admit inpatient. Continue to observe under Youssef Act for now. Continue Ativan PRN anxiety once consents obtained. Continue antihypertensives; I have added BP parameters. Vitals every shift. Counselor to see. Disposition planning. Estimated length of stay: unclear. Discharge Planning Placement Request HC Surrog/Guard Advoc?: Yes Manjit Babin MD Nov 17, 2016 12:19
[2016-11-17] MEDS ORDERED: LORazepam 0.5 MG TAB PO PRN (13:30)
[2016-11-17] MEDS ORDERED: PILL SPLITTER OTHER PRN (13:45)
[2016-11-17 17:58] VITALS: BP 97/55; PULSE 50; RESP 16; TEMP 98.2; O2SAT 97
[2016-11-17] MEDS: LISINOPRIL 10 MG TAB PO SCH (21:00)
[2016-11-17 21:12] VITALS: BP 106/51; PULSE 50
[2016-11-18 04:58] VITALS: BP 98/58; PULSE 54; RESP 16; TEMP 97.9; O2SAT 97
[2016-11-18] MEDS: LISINOPRIL 10 MG TAB PO SCH (08:25)
[2016-11-18] MEDS ORDERED: METOPROLOL TARTRATE 25 MG TAB PO SCH (09:00)
[2016-11-18] MEDS ORDERED: amLODIPine BESYLATE 5 MG TAB PO SCH (09:00)
--- NOTE | 2016-11-18 12:50 | HHI.DS ---
Psychiatry Discharge Summary Inpatient Psychiatric care?: Yes Advance Directive: No Reason Not Provided: Due to Patient Condition Mental Health AdvanceDirective: No Health Care Proxy: No Admission Admission Date Nov 16, 2016 at 18:11 Admission Diagnosis: (1) Intellectual disability ICD Code: F79 Brief History Mr. Cabello is a 21 year-old male with a history of intellectual disability and Dandy Walker syndrome who is presently admitted to the inpatient psychiatric unit under a Youssef act. Reviewing the documentation from the emergency room, it appears that the patient tried to elope several times from his facility. The patient was evaluated by Dr. 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 Patient does not qualify for a Youssef act as this condition is a developmental delay as opposed to a acute psychiatric illness disorder. However, he remains a placement issue and will stay in the emergency department while we attempt to find appropriate placement." Patient was subsequently admitted to the inpatient psychiatric unit for unclear reasons. Reviewing the electronic medical record, I note that the patient was admitted in October under Dr. Ace. Patient seen and examined with nurse. Chart reviewed. Case discussed with nursing staff. No behavioral issues noted. On my examination today, the patient is quite childlike and euthymic. He says that he is "looking for a new place to live. I didn't like the place that they put me in." He denies having any particular difficulties in his facility but says that he just didn't like it there. He denies any issues with low mood or elevated mood, nor can I elicit any depressive or hypomanic/manic symptoms at this time. He denies any audiovisual hallucinations and I can elicit no delusional material. Sleep and appetite are fair. He denies any suicidal or homicidal ideation, intent or plan. The remainder of the psychiatric ROS is negative. The patient wishes to be retained on the inpatient unit until new placement can be found. Patient is unable to provide meaningful past psychiatric, family, chemical dependency or social history because of his degree of cognitive impairment. Tobacco Use In Past 30 Days: No Tobacco Past 30 Days Alcohol Use: Never Hospital Course Patient was admitted to a locked, inpatient psychiatric unit. Appropriate precautions were in place throughout patient's hospital stay. Patient was seen and examined daily on the unit by psychiatry and also visited by counselor. Patient was observed on the inpatient unit as allowed by the initial Youssef Act. During observation on the unit, there was no evidence of any mental illness as defined under the Youssef Act. In particular, there was no evidence of any mood, anxiety or psychotic disorder in this patient. He has intellectual disability, which is not covered under the Youssef Act definition of mental illness, and is not able to care for himself in the community as a result. His facility is refusing to take him back and so there is at presently no safe discharge plan for him. He is not capacitated to consent for voluntary admission as a consequence of his intellectual disability. He does not meet criteria for involuntary psychiatric hospitalization under the Youssef Act. It would be in [place] for me to initiate a petition for involuntary psychiatric hospitalization in this patient at this time. There is no lawful basis that I can discern for the patient to be retained longer on a locked, inpatient psychiatric unit. He will therefore be transferred today to an unlocked, medical unit where he will await a safe discharge plan. Blood pressure has been running low, and so I have held his antihypertensives on transfer. In total, I spent well in excess of 30 minutes attending to this patient's case on the day of discharge, including review of records, examination of patient, care coordination, and discharge planning. On the day of transfer: Patient seen and examined with nurse. Chart reviewed. Case discussed with nursing staff. The patient has been no behavioral problem overnight. On my examination today, the patient is in good spirits. Mood is good and affect childlike. I can elicit no depressive or hypomanic/manic symptoms. He denies any audiovisual hallucinations. I can elicit no delusional material. He denies any suicidal or homicidal ideation. He voices no physical complaints. Results Blood Pressure 98 / 58 Vital Signs Date Time Temp Pulse Resp B/P Pulse Ox O2 Delivery O2 Flow Rate FiO2 11/18/16 04:58 97.9 54 16 98/58 97 11/16/16 14:12 Room Air Laboratory Tests Test 11/17/16 09:49 LDL Cholesterol 116 MG/DL (0-99) Laboratory Results Test 11/17/16 09:49 Hemoglobin A1c 5.1 % (4.3-6.0) Triglycerides Level 65 MG/DL (42-150) Cholesterol Level 188 MG/DL (120-200) LDL Cholesterol 116 MG/DL (0-99) HDL Cholesterol 59.3 MG/DL (40.0-60.0) Summary of Procedures None done Imaging None done Pending results at discharge: No Medications # of Antipsychotic meds at D/C: 0 Approp Antipsych med options 1 - Minimum of three failed multiple trials of monotherapy. 2 - Documented plan to taper to monotherapy due to previous use of multiple meds OR cross-taper in progress at D/C. 3 - Documentation of augmentation of Clozapine. 4 - Justification other than those listed in allowable values 1-3, document here : Discharge Discharge Date: Nov 18, 2016 Discharge Diagnosis: (1) Intellectual disability Diagnosis: Principal ICD Code: F79 (2) No diagnosis on [place] I Diagnosis: Secondary ICD Code: Z03.89 Mental Status Exam at Disch Patient is in hospital gown. Patient is fairly well groomed. Patient is awake and alert and oriented person and hospital at least. No delirium. No motor abnormalities appreciated. Speech is within normal limits for rate, tone, volume. Mood is good and affect is euthymic, somewhat childlike. Thought process linear. No delusions elicited. Denies audiovisual hallucinations and does not appear internally stimulated. Denies suicidal or homicidal ideation. Insight and judgment chronically poor. Pt Condition on Discharge: Stable Discharge Disposition: Disch to Another Hospital Discharge Instructions Diet Instructions: As Tolerated, No Restrictions Activities you can perform: Weight Bearing as Jo Ann Scheduled Appointment: transfer to medical floor Continued Medications: Lorazepam (Ativan) 0.5 Mg Tab 0.5 MG PO Q8H PRN ANXIETY AND/OR AGITATION #30 Ref 0 TAB Discontinued Medications: Amlodipine (Norvasc) 10 Mg Tab 5 MG PO DAILY Blood Pressure Management #30 TAB Lisinopril (Lisinopril) 10 Mg Tab 10 MG PO BID Blood Pressure Management #180 Ref 1 TAB Metoprolol Tartrate (Metoprolol Tartrate) 25 Mg Tab 12.5 MG PO DAILY Hold if HR <60 or SBP <110. tachycardia #15 Ref 6 TAB Discharge Time > 30 minutes Discharge/Advance Care Plan Health Problems: (1) Intellectual disability Goals to promote your health * To prevent worsening of your condition and complications * To maintain your health at the optimal level Directions to meet your goals Take your medications as prescribed Follow your dietary instruction Follow activity as directed Keep your appointments as scheduled Take your immunizations and boosters as scheduled If your symptoms worsen call your PCP, if no PCP go to Urgent Care Center or Emergency Room For 08/11 questions related to your inpatient stay or results of tests pending at discharge, please contact Dr. Manjit Babin at Smoking is Dangerous to Your Health. Avoid second hand smoking Manjit Babin MD Nov 18, 2016 12:50
[2016-11-18 16:43] VITALS: BP 123/74; PULSE 56; RESP 16; TEMP 97.1; O2SAT 87
[2016-11-18 19:29] VITALS: BP 139/90; PULSE 57; O2SAT 100
== END 2016-11-18 20:10 | disposition home or self-care (01) | DRG 884 ==
LOC: NEPJ 18:47 → NEDA 11-16 18:11 → H260 11-16 19:58
PROVIDERS: ADMIT Psychiatry & Neurology Psychiatry; ATTEND Psychiatry & Neurology Psychiatry
DX: F79 Unspecified intellectual disabilities (principal); I10 Essential (primary) hypertension; Z79.899 Other long term (current) drug therapy; R00.0 Tachycardia, unspecified; Q03.1 Atresia of foramina of Magendie and Luschka
CPT/HCPCS: 80048; 80061; 83036

== ENCOUNTER 2016-11-18 20:30 | Inpatient (IN) | payer MEDICAID ==
[~2016-11-18] VITALS: Ht 165.1 cm; Wt 66.2 kg
[2016-11-18 20:30] VITALS: BP 143/90; PULSE 58; RESP 16; TEMP 97.8; O2SAT 98
[~2016-11-18 20:30] MED LIST changes: -AMLO5 PO
[2016-11-18] MEDS ORDERED: ACETAMINOPHEN 325 MG TAB PO PRN (21:00)
[2016-11-18] MEDS ORDERED: LACTULOSE SYRUP 20 GM/30 ML CUP PO PRN (21:00)
--- NOTE | 2016-11-18 23:06 | HHI.HP ---
[facility] No Primary Care Physician Admission Diagnosis Diagnoses: Chief Complaint: unsafe discharge Travel History International Travel<30 Days: No Contact w/Intl Traveler <30 Da: No History of Present Illness 21 y/o male with a history of hypertension and Dandy walker malformation was transferred to the [facility] because he is an unsafe discharge. The patients has an intellectual delay due to medical history and is unable to live alone. He was brought in and treated in [facility] as a coker act, but no longer meets criteria. Unfortunately patient does not have much family that is can safely care for him. Patient was living at [facility] and was brought in because he tried to escape. He states he does not like living there and rather be somewhere else. He is oriented x2, does not know the year and states he has so family. He denies any chest pain, sob, fever, chills, headaches , nausea, vomiting or dysuria. Review of Systems Except as stated in HPI: all other systems reviewed are Neg Past Family Social History Past Medical History Hypertension Dandy Walker Malformation Past Surgical History Patient denies any surgical history Allergies: Coded Allergies: No Known Allergies (Unverified , 11/14/16) Active Ordered Medications Current Medications Medications (Trade) Dose Ordered Sig/Carol Route Start Time Stop Time Status Last Admin (Tylenol) 650 mg Q4H PRN PO 11/18/16 21:00 (Senokot) 17.2 mg Q12H PRN PO 11/18/16 21:00 (Lactulose Liq) 30 ml DAILY PRN PO 11/18/16 21:00 Family History Patient does not know family history Social History Patient denies any tobacco, alcohol or illicit drug use. Physical Exam Vital Signs Vital Signs Date Time Temp Pulse Resp B/P Pulse Ox O2 Delivery O2 Flow Rate FiO2 11/18/16 20:30 97.8 58 16 143/90 98 Physical Exam GENERAL: This is a well-nourished, well-developed patient, in no apparent distress. SKIN: Warm and dry HEENT: Normocephalic. Pupils equal round and reactive. Nose without bleeding. Airway patent. NECK: Trachea midline. No JVD. Supple. CARDIOVASCULAR: Regular rate and rhythm without murmurs, gallops or rubs. RESPIRATORY: Clear to auscultation. Breath sounds equal bilaterally. No wheezes , rales, or rhonchi. GASTROINTESTINAL: Abdomen soft, non-tender, nondistended. Bowel Sounds normoactive x4. : Voiding without difficulty. MUSCULOSKELETAL: Extremities without clubbing, cyanosis, or edema. NEUROLOGICAL: Awake and alert. Oriented to person, place. Moves all extremities. Normal speech. PSYCH: Calm. 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 The patients has intellectual delay due to medical history and is unable to live alone. He was brought in and treated in psych as a coker act, but no longer meets criteria. Unfortunately patient does not have much family that is can safely care for him. Patient was living at [facility] and was brought in because he tried to escape. HTN, chronic -Resume home medications lisinopril, Lopressor and Norvasc -Monitor vitals, hold for hypotension Self care deficit, due intellectual delay and dandy walker malformation, patient is unable to live alone and care for himself without harm -Consult case management for placement -Patient is currently an unsafe discharge to live alone DVT prophylaxis: Patient is ambulatory, scds Discussed Condition With Patient and RN Physician Certification 2 Midnight Certification Type: Admission for Inpatient Services Order for Inpatient Services The services are ordered in accordance with Medicare regulations or non- Medicare payer requirements, as applicable. In the case of services not specified as inpatient-only, they are appropriately provided as inpatient services in accordance with the 2-midnight benchmark. Estimated LOS (days): 3 days is the estimated time the patient will need to remain in the hospital, assuming treatment plan goals are met and no additional complications. Post-Hospital Plan: Not yet determined Nellie Magallanes Nov 18, 2016 23:06
[2016-11-18] MEDS ORDERED: PILL SPLITTER OTHER PRN (23:15)
[2016-11-19] VITALS: BP 131/56; PULSE 60; RESP 16; TEMP 97.8; O2SAT 98
[2016-11-19 04:47] VITALS: BP 114/66; PULSE 48; RESP 16; TEMP 97.4; O2SAT 99
[2016-11-19 08:00] VITALS: BP 138/63; PULSE 59; RESP 18; TEMP 98.2; O2SAT 99
[2016-11-19] MEDS: LISINOPRIL 10 MG TAB PO SCH (08:01)
[2016-11-19] MEDS: amLODIPine BESYLATE 5 MG TAB PO SCH (08:01)
[2016-11-19 08:53] LABS: AUTOMATED NEUTROPHIL # 2.3 TH/MM3 (1.8-7.7); BASOPHIL % 0.3 % (0.0-2.0); EOSINOPHIL # 0.1 TH/MM3 (0-0.4); EOSINOPHIL % 1.3 % (0.0-4.0); HEMATOCRIT 41.6 % (39.0-51.0); HEMO FLAGS DIFF FINAL; LYMPH % 32.8 % (9.0-44.0); LYMPHOCYTE # 1.3 TH/MM3 (1.0-4.8); MEAN CELL VOLUME 80.1 FL (80.0-100.0); MEAN CORPUSCULAR HEMOGLOBIN 26.8 PG (27.0-34.0); MEAN CORPUSCULAR HGB CONC 33.4 % (32.0-36.0); MONO % 8.9 % (0.0-8.0); NEUT % 56.7 % (16.0-70.0); PLATELET COUNT 126 TH/MM3 (150-450); RED BLOOD COUNT 5.19 MIL/MM3 (4.50-5.90); RED CELL DISTRIBUTION WIDTH 13.7 % (11.6-17.2)
[2016-11-19] MEDS ORDERED: METOPROLOL TARTRATE 25 MG TAB PO SCH (09:00)
[2016-11-19 09:17] LABS: BICARBONATE 31.5 MEQ/L (21.0-32.0); POTASSIUM 4.1 MEQ/L (3.5-5.1)
[2016-11-19 12:00] VITALS: BP 129/56; PULSE 50; RESP 18; TEMP 97.8; O2SAT 98
--- NOTE | 2016-11-19 13:29 | HHI.PR ---
Subjective Remarks Follow up for proper placement. Mr. Cabello is a 21 year old male with a history of hypertension, Dandy-walker malformation who was brought to the hospital from [facility] due to unsafe behavior at [facility]. Patient tried to escape from [facility]. He denied any acute medical concerns. Objective Vitals Vital Signs Date Time Temp Pulse Resp B/P Pulse Ox O2 Delivery O2 Flow Rate FiO2 11/19/16 12:00 97.8 50 18 129/56 98 11/19/16 08:00 98.2 59 18 138/63 99 11/19/16 04:47 97.4 48 16 114/66 99 11/19/16 00:00 97.8 60 16 131/56 98 11/18/16 20:30 97.8 58 16 143/90 98 I/O 11/18/16 11/18/16 11/18/16 11/19/16 11/19/16 11/19/16 07:00 15:00 23:00 07:00 15:00 23:00 Intake Total 240 ml Output Total 0 ml Balance 240 ml Intake Oral 240 ml Output Urine Total 0 ml # Bowel Movements 0 Result Diagram: 11/19/1682211/19/16822 Objective Remarks GENERAL: Alert, NAD. Sleeping, talks very little. SKIN: Warm and dry. HEAD: Normocephalic. EYES: No scleral icterus. No injection or drainage. NECK: Supple, trachea midline. No JVD or lymphadenopathy. CARDIOVASCULAR: Regular rate and rhythm without murmurs, gallops, or rubs. RESPIRATORY: Breath sounds equal bilaterally. No accessory muscle use. GASTROINTESTINAL: Abdomen soft, non-tender, nondistended. MUSCULOSKELETAL: No cyanosis, or edema. BACK: Nontender without obvious deformity. No CVA tenderness. Procedures None. 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 Patient has no acute medical concerns. - Hypertension - Continue Amlodipine 5mg Qday, Lisinopril 10mg Qday and Metoprolol tartrate 12.5mg Qday - Dandy-walker syndrome - no acute issues. - Self care deficit - Case management is working on proper placement arrangement. - Patient has no willing family support. Full code. Ambulation. Emeterio Bailey DO Nov 19, 2016 13:29
[2016-11-19 16:00] VITALS: BP 122/72; PULSE 51; RESP 18; TEMP 97.6; O2SAT 98
[2016-11-19 20:00] VITALS: BP 117/58; PULSE 92; RESP 16; TEMP 98.5; O2SAT 98
[2016-11-20 00:03] VITALS: BP 95/60; PULSE 72; RESP 16; TEMP 97.5; O2SAT 100
[2016-11-20 04:00] VITALS: BP 99/54; PULSE 53; RESP 20; TEMP 97.1; O2SAT 98
[2016-11-20 08:00] VITALS: BP 107/67; PULSE 81; RESP 18; TEMP 97.8; O2SAT 100
[2016-11-20] MEDS: amLODIPine BESYLATE 5 MG TAB PO SCH (09:00)
[2016-11-20] MEDS: LISINOPRIL 10 MG TAB PO SCH (09:00)
[2016-11-20 12:00] VITALS: BP 117/72; PULSE 80; RESP 18; TEMP 97.2; O2SAT 100
--- NOTE | 2016-11-20 12:18 | HHI.PR ---
Subjective Remarks Follow-up for agitation Patient is calm, no overnight events. Denies any pain. Objective Vitals Vital Signs Date Time Temp Pulse Resp B/P Pulse Ox O2 Delivery O2 Flow Rate FiO2 11/20/16 08:00 97.8 81 18 107/67 100 11/20/16 04:00 97.1 53 20 99/54 98 11/20/16 00:03 97.5 72 16 95/60 100 11/19/16 20:00 98.5 92 16 117/58 98 11/19/16 16:00 97.6 51 18 122/72 98 I/O 11/19/16 11/19/16 11/19/16 11/20/16 11/20/16 11/20/16 07:00 15:00 23:00 07:00 15:00 23:00 Intake Total 240 ml 480 ml 220 ml 120 ml Output Total 0 ml 700 ml 200 ml Balance 240 ml -220 ml 20 ml 120 ml Intake Oral 240 ml 480 ml 220 ml 120 ml Output Urine Total 0 ml 700 ml 200 ml # Voids 2 # Bowel Movements 0 0 0 0 Result Diagram: 11/19/16 0811/19/16 0823 Objective Remarks GENERAL: Alert, NAD. Sleeping, talks very little. CARDIOVASCULAR: Regular rate and rhythm without murmurs, gallops, or rubs. RESPIRATORY: Breath sounds equal bilaterally. No accessory muscle use. GASTROINTESTINAL: Abdomen soft, non-tender, nondistended. Awake, alert, oriented to place and person but not to time. Procedures None. 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 We'll also stop Norvasc for now. - Dandy-walker syndrome - no acute issues. - Self care deficit - Case management is working on proper placement arrangement. Discussed with case management today. May transfer to [place] pending placement. - Patient has no willing family support. Discharge Planning Complex placement, case management working in the case, needs placement. Ela Marion MD Nov 20, 2016 12:18
[2016-11-20 16:00] VITALS: BP 101/58; PULSE 58; RESP 16; TEMP 97.7; O2SAT 99
[2016-11-20 21:02] VITALS: BP 165/98; PULSE 56; RESP 16; TEMP 96; O2SAT 98
[2016-11-21] MEDS: LISINOPRIL 10 MG TAB PO SCH (08:43)
[2016-11-21 10:19] VITALS: BP 133/83; PULSE 88; RESP 16; TEMP 97.5; O2SAT 97
--- NOTE | 2016-11-21 12:07 | HHI.PR ---
Subjective Remarks 21-year-old male who is well-known to the hospital for multiple admissions with Dandy-Walker syndrome. Patient was originally admitted to the hospital under Youssef act and was treated by psychiatry and subsequently released. However there is indicated the patient was unsafe discharge so patient was admitted to medical service. Patient is well-known to our service with prolonged hospitalizations due to inability to obtain outpatient care for this patient. Patient is clinically stable, medically stable, and apparently psychologically stable from psychiatry perspective. Patient was transferred to [place] for continued management and care. Patient is a difficult social discharge, patient will remain in the hospital until case management can arrange safe discharge planning. Objective Vitals Vital Signs Date Time Temp Pulse Resp B/P Pulse Ox O2 Delivery O2 Flow Rate FiO2 11/21/16 10:19 97.5 88 16 133/83 97 11/20/16 21:02 96.0 56 16 165/98 98 11/20/16 16:00 97.7 58 16 101/58 99 I/O 11/20/16 11/20/16 11/20/16 11/21/16 11/21/16 11/21/16 07:00 15:00 23:00 07:00 15:00 23:00 Intake Total 120 ml 800 ml 240 ml 0 ml Output Total 0 ml Balance 120 ml 800 ml 240 ml 0 ml Intake Oral 120 ml 800 ml 240 ml IV Total 0 ml Stool Total 0 ml # Voids 2 3 2 # Bowel Movements 0 Result Diagram: 11/19/1682211/19/1623 Objective Remarks GENERAL: Well-developed, well-nourished, in no acute distress. alert HEENT: Head is normocephalic without any lesions or masses noted. Facial features are symmetric. Eyes: Extraocular muscles are intact. Conjunctivae were clear. NECK: Trachea midline no deviation. No JVD CARDIAC: Regular rhythm, regular rate. S1/S2 are heard. No murmurs gallops or rubs. LUNGS: Clear to auscultation bilaterally. No wheeze, rhonchi or rales. No use of accessory muscles on inspiration or expiration. ABDOMEN: Soft, nontender. Nondistended. Bowel sounds heard in all 4 quadrants. No organomegaly or masses. Negative rebound, negative guarding EXTREMITIES: No edema, pulses are equal bilaterally. No cyanosis or clubbing NEUROLOGY: Mood and affect appear appropriate. Cranial nerves II through XII grossly intact. Moving all extremities, speech is clear Procedures None. Urinary Catheter: No Vascular Central Line Catheter: No A/P Assessment and Plan Total Self Care Deficit: Case management trying to find appropriate placement. 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 Reported mental capacity of 89 year-old. Patient is a flight risk, patient has to have sitter ordered Hypertension Lisinopril 10 mg twice daily DVT Prophylaxis: Low risk, patient ambulating Discharge Planning Discharge once arrangements made by case management Yaniv Simmons Nov 21, 2016 12:07
[2016-11-21 19:11] VITALS: BP 142/90; PULSE 72; RESP 16; TEMP 97.5; O2SAT 97
--- NOTE | 2016-11-22 08:22 | HHI.PR ---
Subjective Remarks Patient seen and examined today for follow-up on Dandy-Walker disorder. Patient sitting in bed, denies any new complaints. Awaiting case briefer discharge planning Objective Vitals Vital Signs Date Time Temp Pulse Resp B/P Pulse Ox O2 Delivery O2 Flow Rate FiO2 11/21/16 19:11 97.5 72 16 142/90 97 11/21/16 10:19 97.5 88 16 133/83 97 I/O 11/21/16 11/21/16 11/21/16 11/22/16 11/22/16 11/22/16 06:59 14:59 22:59 06:59 14:59 22:59 Intake Total 0 ml 240 ml Balance 0 ml 240 ml Intake Oral 240 ml IV Total 0 ml # Voids 1 1 Result Diagram: 11/19/1682211/19/16822 Objective Remarks GENERAL: Well-developed, well-nourished, in no acute distress. alert HEENT: Head is normocephalic without any lesions or masses noted. Facial features are symmetric. Eyes: Extraocular muscles are intact. Conjunctivae were clear. NECK: Trachea midline no deviation. No JVD CARDIAC: Regular rhythm, regular rate. S1/S2 are heard. No murmurs gallops or rubs. LUNGS: Clear to auscultation bilaterally. No wheeze, rhonchi or rales. No use of accessory muscles on inspiration or expiration. ABDOMEN: Soft, nontender. Nondistended. Bowel sounds heard in all 4 quadrants. No organomegaly or masses. Negative rebound, negative guarding EXTREMITIES: No edema, pulses are equal bilaterally. No cyanosis or clubbing NEUROLOGY: Mood and affect appear appropriate. Cranial nerves II through XII grossly intact. Moving all extremities, speech is clear Procedures None. Urinary Catheter: No Vascular Central Line Catheter: No A/P Assessment and Plan Total Self Care Deficit: Case management trying to find appropriate placement. 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 Reported mental capacity of 89 year-old. Patient is a flight risk, patient has to have sitter ordered Hypertension Lisinopril 10 mg daily DVT Prophylaxis: Low risk, patient ambulating Discharge Planning Discharge once arrangements made by case management Yaniv Simmons Nov 22, 2016 08:22
[2016-11-22] MEDS: LISINOPRIL 10 MG TAB PO SCH (08:44)
[2016-11-22 08:50] VITALS: BP 152/90; PULSE 72; RESP 19; TEMP 96.8; O2SAT 98
[2016-11-22 22:00] VITALS: BP 143/71; PULSE 83; RESP 20; TEMP 96.5; O2SAT 97
[2016-11-23 08:00] VITALS: BP 121/79; PULSE 70; RESP 18; TEMP 96.2; O2SAT 100
[2016-11-23] MEDS: LISINOPRIL 10 MG TAB PO SCH (08:35)
--- NOTE | 2016-11-23 11:03 | HHI.PR ---
Subjective Remarks Patient with Dandy-Walker malformation known to me from a prior admission. Follow-up for placement issue. Patient has no acute complaints. Witnessed be walking the halls with the sitter. Objective Vitals Vital Signs Date Time Temp Pulse Resp B/P Pulse Ox O2 Delivery O2 Flow Rate FiO2 11/22/16 22:00 96.5 83 20 143/71 97 I/O 11/22/16 11/22/16 11/22/16 11/23/16 11/23/16 11/23/16 07:00 15:00 23:00 07:00 15:00 23:00 Intake Total 1130 ml Output Total 2 ml Balance 1130 ml -2 ml Intake Oral 1130 ml Output Urine Total 2 ml # Voids 1 5 # Bowel Movements 1 Result Diagram: 11/19/1682211/19/16822 Objective Remarks GENERAL: Pleasant well-developed well-nourished patient in no apparent distress CARDIOVASCULAR: Tachycardic rate and regular rhythm. RESPIRATORY: No accessory muscle use. Clear to auscultation. Breath sounds equal bilaterally. GASTROINTESTINAL: Abdomen soft, non-tender, nondistended. NEUROLOGICAL: Awake and alert. Normal speech. Procedures None. 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 Patient was initially Youssef acted and treated by psychiatrist. 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 Reported mental capacity of 89 year-old. Patient is a flight risk, patient has to have sitter. Hypertension: Improved this morning. Lisinopril 10 mg daily DVT Prophylaxis: Low risk, patient ambulating regularly Discharge Planning Per Herbie LOVE BRENAD is not able to meet pt needs as he is a flight risk. Pt application has been submitted to [employer] by CM. Awaiting for application to be processed to assist with placement for this pt. Jazmín Meadows Nov 23, 2016 11:03
[2016-11-23 20:00] VITALS: BP 133/83; PULSE 74; RESP 20; TEMP 96.2; O2SAT 98
[2016-11-24 08:00] VITALS: BP 110/84; PULSE 103; RESP 18; TEMP 98.7; O2SAT 94
[2016-11-24] MEDS: LISINOPRIL 10 MG TAB PO SCH (09:08)
--- NOTE | 2016-11-24 11:54 | HHI.PR ---
Subjective Remarks Patient with Dandy-Walker malformation. Follow-up for placement issue. No acute complaints. Objective Vitals Vital Signs Date Time Temp Pulse Resp B/P Pulse Ox O2 Delivery O2 Flow Rate FiO2 11/23/16 20:00 96.2 74 20 133/83 98 I/O 11/23/16 11/23/16 11/23/16 11/24/16 11/24/16 11/24/16 07:00 15:00 23:00 07:00 15:00 23:00 Intake Total 1810 ml 240 ml Output Total 2 ml Balance -2 ml 1810 ml 240 ml Intake Oral 1810 ml 240 ml Output Urine Total 2 ml # Voids 5 3 # Bowel Movements 0 0 Objective Remarks GENERAL: Pleasant well-developed well-nourished patient in no apparent distress witnessed to be walking the halls. CARDIOVASCULAR: Regular rate and rhythm. Murmur over pulmonic region. RESPIRATORY: No accessory muscle use. Clear to auscultation. Breath sounds equal bilaterally. GASTROINTESTINAL: Abdomen soft, non-tender, nondistended. NEUROLOGICAL: Awake and alert. Normal speech. Procedures None. 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 Patient was initially Youssef acted and treated by psychiatrist. 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 Reported mental capacity of 89 year-old. Patient is a flight risk, patient has to have sitter. Hypertension: Stable. Lisinopril 10 mg daily DVT Prophylaxis: Low risk, patient ambulating regularly Discharge Planning Per Herbie LOVE BRENDA is not able to meet pt needs as he is a flight risk. Pt application has been submitted to [employer] by CM. Awaiting for application to be processed to assist with placement for this pt. Jazmín Meadows Nov 24, 2016 11:53
[2016-11-24 20:00] VITALS: BP 123/78; PULSE 79; RESP 16; TEMP 98.1; O2SAT 98
[2016-11-25 08:00] VITALS: BP 120/83; PULSE 53; RESP 16; TEMP 95.2; O2SAT 98
[2016-11-25] MEDS: LISINOPRIL 10 MG TAB PO SCH (08:07)
--- NOTE | 2016-11-25 10:28 | HHI.PR ---
Subjective Remarks Patient with Dandy-Walker syndrome awaiting placement. No acute complaints. Objective Vitals Vital Signs Date Time Temp Pulse Resp B/P Pulse Ox O2 Delivery O2 Flow Rate FiO2 11/25/16 08:00 95.2 53 16 120/83 98 11/24/16 20:00 98.1 79 16 123/78 98 I/O 11/24/16 11/24/16 11/24/16 11/25/16 11/25/16 11/25/16 06:59 14:59 22:59 06:59 14:59 22:59 Intake Total 240 ml 480 ml 480 ml Balance 240 ml 480 ml 480 ml Intake Oral 240 ml 480 ml 480 ml # Voids 3 2 1 # Bowel Movements 0 0 0 Objective Remarks GENERAL: Pleasant well-developed well-nourished patient in no apparent distress. CARDIOVASCULAR: Regular rate and rhythm. RESPIRATORY: No accessory muscle use. Clear to auscultation. Breath sounds equal bilaterally. GASTROINTESTINAL: Abdomen soft, non-tender, nondistended. NEUROLOGICAL: Awake and alert. Normal speech. Procedures None. 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 Patient was initially Youssef acted and treated by psychiatrist. 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 Reported mental capacity of 89 year-old. Patient is a flight risk, patient has to have sitter. Hypertension: Stable. Lisinopril 10 mg daily DVT Prophylaxis: Low risk, patient ambulating regularly Discharge Planning Per Melissa LOVEide BRENDA is not able to meet pt needs as he is a flight risk. Pt application has been submitted to [employer] by CM. Awaiting for application to be processed to assist with placement for this pt. Jazmín Meadows Nov 25, 2016 10:28
[2016-11-25 20:00] VITALS: BP 147/96; PULSE 58; RESP 16; TEMP 96; O2SAT 98
[2016-11-26 08:00] VITALS: BP 134/90; PULSE 59; RESP 18; TEMP 98.5; O2SAT 99
[2016-11-26] MEDS: LISINOPRIL 10 MG TAB PO SCH (08:31)
--- NOTE | 2016-11-26 13:00 | HHI.PR ---
Subjective Remarks Patient with Dandy-Walker syndrome awaiting placement. No acute complaints. Objective Vitals Vital Signs Date Time Temp Pulse Resp B/P Pulse Ox O2 Delivery O2 Flow Rate FiO2 11/26/16 08:00 98.5 59 18 134/90 99 11/25/16 20:00 96.0 58 16 147/96 98 I/O 11/25/16 11/25/16 11/25/16 11/26/16 11/26/16 11/26/16 06:59 14:59 22:59 06:59 14:59 22:59 Intake Total 480 ml 375 ml 480 ml 240 ml Balance 480 ml 375 ml 480 ml 240 ml Intake Oral 480 ml 375 ml 480 ml 240 ml # Voids 1 3 1 1 # Bowel Movements 0 0 0 0 Objective Remarks GENERAL: Pleasant well-developed well-nourished patient in no apparent distress. CARDIOVASCULAR: Tachycardic rate with regular rhythm. RESPIRATORY: No accessory muscle use. Clear to auscultation. Breath sounds equal bilaterally. GASTROINTESTINAL: Abdomen soft, non-tender, nondistended. NEUROLOGICAL: Awake and alert. Normal speech. Procedures None. 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 Patient was initially Youssef acted and treated by psychiatrist. 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 Reported mental capacity of 89 year-old. Patient is a flight risk, patient has to have sitter. Hypertension: Stable. Lisinopril 10 mg daily DVT Prophylaxis: Low risk, patient ambulating regularly Discharge Planning Per Herbie LOVE BRENDA is not able to meet pt needs as he is a flight risk. Pt application has been submitted to [employer] by CM. Awaiting for application to be processed to assist with placement for this pt. Jazmín Meadows Nov 26, 2016 13:00
[2016-11-26 20:00] VITALS: BP 123/84; PULSE 57; RESP 20; TEMP 97.6; O2SAT 99
[2016-11-27 08:00] VITALS: BP 104/83; PULSE 83; RESP 18; TEMP 96.9; O2SAT 97
[2016-11-27] MEDS: LISINOPRIL 10 MG TAB PO SCH (08:43)
--- NOTE | 2016-11-27 12:25 | HHI.PR ---
Subjective Remarks Follow-up for placement issue. Patient with Dandy Walker syndrome. No acute complaints. Objective Vitals Vital Signs Date Time Temp Pulse Resp B/P Pulse Ox O2 Delivery O2 Flow Rate FiO2 11/27/16 08:00 96.9 83 18 104/83 97 11/26/16 20:00 97.6 57 20 123/84 99 I/O 11/26/16 11/26/16 11/26/16 11/27/16 11/27/16 11/27/16 07:00 15:00 23:00 07:00 15:00 23:00 Intake Total 240 ml 720 ml 360 ml Balance 240 ml 720 ml 360 ml Intake Oral 240 ml 720 ml 360 ml # Voids 1 1 # Bowel Movements 0 Objective Remarks GENERAL: Pleasant well-developed well-nourished patient in no apparent distress. CARDIOVASCULAR: Regular rate and rhythm. RESPIRATORY: No accessory muscle use. Clear to auscultation. Breath sounds equal bilaterally. GASTROINTESTINAL: Abdomen soft, non-tender, nondistended. NEUROLOGICAL: Awake and alert. Normal speech. Procedures None. 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 Patient was initially Youssef acted and treated by psychiatrist. 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 Reported mental capacity of 89 year-old. Patient is a flight risk, patient has to have sitter. Hypertension: Stable. Lisinopril 10 mg daily DVT Prophylaxis: Low risk, patient ambulating regularly Discharge Planning Per Herbie LOVE BRENDA is not able to meet pt needs as he is a flight risk. Pt application has been submitted to [employer] by CM. Awaiting for application to be processed to assist with placement for this pt. Jazmín Meadows Nov 27, 2016 12:24
[2016-11-27 20:00] VITALS: BP 152/91; PULSE 76; RESP 20; TEMP 97.6; O2SAT 99
[2016-11-28 08:00] VITALS: BP 142/84; PULSE 54; RESP 16; TEMP 97.6; O2SAT 97
[2016-11-28] MEDS: LISINOPRIL 10 MG TAB PO SCH (08:19)
--- NOTE | 2016-11-28 10:20 | HHI.PR ---
Subjective Remarks Follow-up for placement. Patient with Dandy-Walker syndrome. No acute complaints. Objective Vitals Vital Signs Date Time Temp Pulse Resp B/P Pulse Ox O2 Delivery O2 Flow Rate FiO2 11/28/16 08:00 97.6 54 16 142/84 97 11/27/16 20:00 97.6 76 20 152/91 99 I/O 11/27/16 11/27/16 11/27/16 11/28/16 11/28/16 11/28/16 07:00 15:00 23:00 07:00 15:00 23:00 Intake Total 720 ml 360 ml 320 ml Balance 720 ml 360 ml 320 ml Intake Oral 720 ml 360 ml 320 ml # Voids 1 2 Objective Remarks GENERAL: Pleasant well-developed well-nourished patient in no apparent distress. CARDIOVASCULAR: Regular rate and rhythm. RESPIRATORY: No accessory muscle use. Clear to auscultation. Breath sounds equal bilaterally. GASTROINTESTINAL: Abdomen soft, non-tender, nondistended. NEUROLOGICAL: Awake and alert. Normal speech. Procedures None. 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 Patient was initially Youssef acted and treated by psychiatrist. 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 Reported mental capacity of 89 year-old. Patient is a flight risk, patient has to have sitter. Hypertension: Lisinopril 10 mg daily 11/28: BP mildly elevated this morning. Monitor. DVT Prophylaxis: Low risk, patient ambulating regularly Discharge Planning Per Melissa LOVEide BRENDA is not able to meet pt needs as he is a flight risk. Pt application has been submitted to [employer] by CM. Awaiting for application to be processed to assist with placement for this pt. Jazmín Meadows Nov 28, 2016 10:20
[2016-11-28 20:00] VITALS: BP 126/73; PULSE 67; RESP 20; TEMP 98.1; O2SAT 96
[2016-11-29 08:00] VITALS: BP 140/100; PULSE 88; RESP 19; TEMP 98; O2SAT 96
[2016-11-29] MEDS: LISINOPRIL 10 MG TAB PO SCH (08:28)
--- NOTE | 2016-11-29 10:24 | HHI.PR ---
Subjective Remarks Follow-up for placement issue. Patient with Dandy-Walker syndrome. No acute complaints. Objective Vitals Vital Signs Date Time Temp Pulse Resp B/P Pulse Ox O2 Delivery O2 Flow Rate FiO2 11/29/16 08:00 98.0 88 19 140/100 96 11/28/16 20:00 98.1 67 20 126/73 96 I/O 11/28/16 11/28/16 11/28/16 11/29/16 11/29/16 11/29/16 07:00 15:00 23:00 07:00 15:00 23:00 Intake Total 320 ml 960 ml 620 ml Balance 320 ml 960 ml 620 ml Intake Oral 320 ml 960 ml 620 ml # Voids 2 4 2 # Bowel Movements 1 Objective Remarks GENERAL: Pleasant well-developed well-nourished patient in no apparent distress. CARDIOVASCULAR: Tachycardic rate with regular rhythm. RESPIRATORY: No accessory muscle use. Clear to auscultation. Breath sounds equal bilaterally. GASTROINTESTINAL: Abdomen soft, non-tender, nondistended. NEUROLOGICAL: Awake and alert. Normal speech. Procedures None. 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 Patient was initially Youssef acted and treated by psychiatrist. 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 Reported mental capacity of 89 year-old. Patient is a flight risk, patient has to have sitter. Hypertension: Lisinopril 10 mg daily 11/29: BP mildly elevated this morning, fluctuates. Monitor. DVT Prophylaxis: Low risk, patient ambulating regularly Discharge Planning Per Herbie LOVE BRENDA is not able to meet pt needs as he is a flight risk. Pt application has been submitted to [employer] by CM. Awaiting for application to be processed to assist with placement for this pt. Jazmín Meadows Nov 29, 2016 10:24
[2016-11-29 20:00] VITALS: BP 149/97; PULSE 98; RESP 16; TEMP 97.8; O2SAT 99
[2016-11-30 10:01] VITALS: BP 162/101; PULSE 114; RESP 22; TEMP 97.8; O2SAT 96
[2016-11-30] MEDS: LISINOPRIL 10 MG TAB PO SCH (10:01)
--- NOTE | 2016-11-30 14:21 | HHI.PR ---
Subjective Remarks Patient seen and examined today in follow-up for Dandy-Walker disorder. Patient is walking the halls without any medical problems. Denies any new complaints. Awaiting case management for discharge planning. Objective Vitals Vital Signs Date Time Temp Pulse Resp B/P Pulse Ox O2 Delivery O2 Flow Rate FiO2 11/30/16 10:01 97.8 114 22 162/101 96 11/29/16 20:00 97.8 98 16 149/97 99 I/O 11/29/16 11/29/16 11/29/16 11/30/16 11/30/16 11/30/16 07:00 15:00 23:00 07:00 15:00 23:00 Intake Total 620 ml 740 ml 120 ml Balance 620 ml 740 ml 120 ml Intake Oral 620 ml 740 ml 120 ml # Voids 2 1 2 # Bowel Movements 1 Objective Remarks GENERAL: Well-developed, well-nourished, in no acute distress. alert HEENT: Head is normocephalic without any lesions or masses noted. Facial features are symmetric. Eyes: Extraocular muscles are intact. Conjunctivae were clear. NECK: Trachea midline no deviation. No JVD CARDIAC: Regular rhythm, regular rate. S1/S2 are heard. No murmurs gallops or rubs. LUNGS: Clear to auscultation bilaterally. No wheeze, rhonchi or rales. No use of accessory muscles on inspiration or expiration. ABDOMEN: Soft, nontender. Nondistended. Bowel sounds heard in all 4 quadrants. No organomegaly or masses. Negative rebound, negative guarding EXTREMITIES: No edema, pulses are equal bilaterally. No cyanosis or clubbing NEUROLOGY: Mood and affect appear appropriate. Cranial nerves II through XII grossly intact. Moving all extremities, speech is clear Procedures None. Urinary Catheter: No Vascular Central Line Catheter: No A/P Assessment and Plan Total Self Care Deficit: Case management trying to find appropriate placement. 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 Reported mental capacity of 89 year-old. Patient is a flight risk, patient has to have sitter ordered Hypertension Lisinopril 20 mg daily DVT Prophylaxis: Low risk, patient ambulating Discharge Planning Discharge once arrangements made by case management Yaniv Simmons Nov 30, 2016 14:21
[2016-11-30 20:00] VITALS: BP 145/88; PULSE 64; RESP 16; TEMP 97.9; O2SAT 99
[2016-12-01 08:00] VITALS: BP 121/77; PULSE 51; RESP 16; TEMP 97.8; O2SAT 97
[2016-12-01] MEDS: LISINOPRIL 20 MG TAB PO SCH (09:18)
--- NOTE | 2016-12-01 14:28 | HHI.PR ---
Subjective Remarks Patient seen and examined today for follow-up on any Walker syndrome. Patient denies any new complaints. No change in clinical status. Awaiting case management for discharge planning Objective Vitals Vital Signs Date Time Temp Pulse Resp B/P Pulse Ox O2 Delivery O2 Flow Rate FiO2 12/01/16 08:00 97.8 51 16 121/77 97 11/30/16 20:00 97.9 64 16 145/88 99 I/O 11/30/16 11/30/16 11/30/16 12/01/16 12/01/16 12/01/16 06:59 14:59 22:59 06:59 14:59 22:59 Intake Total 120 ml 480 ml 240 ml Balance 120 ml 480 ml 240 ml Intake Oral 120 ml 480 ml 240 ml # Voids 2 3 1 # Bowel Movements 0 0 Objective Remarks GENERAL: Well-developed, well-nourished, in no acute distress. alert HEENT: Head is normocephalic without any lesions or masses noted. Facial features are symmetric. Eyes: Extraocular muscles are intact. Conjunctivae were clear. NECK: Trachea midline no deviation. No JVD CARDIAC: Regular rhythm, regular rate. S1/S2 are heard. No murmurs gallops or rubs. LUNGS: Clear to auscultation bilaterally. No wheeze, rhonchi or rales. No use of accessory muscles on inspiration or expiration. ABDOMEN: Soft, nontender. Nondistended. Bowel sounds heard in all 4 quadrants. No organomegaly or masses. Negative rebound, negative guarding EXTREMITIES: No edema, pulses are equal bilaterally. No cyanosis or clubbing NEUROLOGY: Mood and affect appear appropriate. Cranial nerves II through XII grossly intact. Moving all extremities, speech is clear Procedures None. Urinary Catheter: No Vascular Central Line Catheter: No A/P Assessment and Plan Total Self Care Deficit: Case management trying to find appropriate placement. 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 Reported mental capacity of 89 year-old. Patient is a flight risk, patient has to have sitter ordered Hypertension Lisinopril 20 mg daily Add Norvasc 10 mg daily DVT Prophylaxis: Low risk, patient ambulating Discharge Planning Discharge once arrangements made by case management Yaniv Simmons Dec 01, 2016 14:28
[2016-12-01 20:00] VITALS: BP 115/65; PULSE 64; RESP 18; TEMP 95.7; O2SAT 98
[2016-12-02 09:00] VITALS: BP 139/89; PULSE 92; RESP 19; TEMP 98.5; O2SAT 95
[2016-12-02] MEDS: LISINOPRIL 20 MG TAB PO SCH (09:07)
--- NOTE | 2016-12-02 12:04 | HHI.PR ---
Subjective Remarks Patient examined today for follow-up on dandy walker syndrome. Patient denies any new complaints. Patient is actually walking the halls as usual. Awaiting case management for discharge planning Objective Vitals Vital Signs Date Time Temp Pulse Resp B/P Pulse Ox O2 Delivery O2 Flow Rate FiO2 12/02/16 09:00 98.5 92 19 139/89 95 12/01/16 20:00 95.7 64 18 115/65 98 I/O 12/01/16 12/01/16 12/01/16 12/02/16 12/02/16 12/02/16 07:00 15:00 23:00 07:00 15:00 23:00 Intake Total 240 ml 1200 ml 480 ml Balance 240 ml 1200 ml 480 ml Intake Oral 240 ml 1200 ml 480 ml # Voids 1 5 2 # Bowel Movements 0 0 0 Objective Remarks GENERAL: Well-developed, well-nourished, in no acute distress. alert HEENT: Head is normocephalic without any lesions or masses noted. Facial features are symmetric. Eyes: Extraocular muscles are intact. Conjunctivae were clear. NECK: Trachea midline no deviation. No JVD CARDIAC: Regular rhythm, regular rate. S1/S2 are heard. No murmurs gallops or rubs. LUNGS: Clear to auscultation bilaterally. No wheeze, rhonchi or rales. No use of accessory muscles on inspiration or expiration. ABDOMEN: Soft, nontender. Nondistended. Bowel sounds heard in all 4 quadrants. No organomegaly or masses. Negative rebound, negative guarding EXTREMITIES: No edema, pulses are equal bilaterally. No cyanosis or clubbing NEUROLOGY: Mood and affect appear appropriate. Cranial nerves II through XII grossly intact. Moving all extremities, speech is clear Procedures None. Urinary Catheter: No Vascular Central Line Catheter: No A/P Assessment and Plan Total Self Care Deficit: Case management trying to find appropriate placement. 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 Reported mental capacity of 89 year-old. Patient is a flight risk, patient has to have sitter ordered Hypertension, improved Lisinopril 20 mg daily Norvasc 10 mg daily DVT Prophylaxis: Low risk, patient ambulating Discharge Planning Discharge once arrangements made by case management Yaniv Simmons Dec 02, 2016 12:04
[2016-12-02 20:00] VITALS: BP 123/78; PULSE 76; RESP 16; TEMP 98; O2SAT 98
[2016-12-03 08:00] VITALS: BP 119/72; PULSE 72; RESP 16; TEMP 97.8; O2SAT 96
[2016-12-03] MEDS: LISINOPRIL 20 MG TAB PO SCH (08:56)
--- NOTE | 2016-12-03 11:14 | HHI.PR ---
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 Patient has remained clinically stable. Awaiting case management for discharge planning Objective Vitals Vital Signs Date Time Temp Pulse Resp B/P Pulse Ox O2 Delivery O2 Flow Rate FiO2 12/03/16 08:00 97.8 72 16 119/72 96 12/02/16 20:00 98.0 76 16 123/78 98 I/O 12/02/16 12/02/16 12/02/16 12/03/16 12/03/16 12/03/16 07:00 15:00 23:00 07:00 15:00 23:00 Intake Total 480 ml 280 ml 240 ml Balance 480 ml 280 ml 240 ml Intake Oral 480 ml 280 ml 240 ml # Voids 2 1 1 # Bowel Movements 0 0 0 Objective Remarks GENERAL: Well-developed, well-nourished, in no acute distress. alert HEENT: Head is normocephalic without any lesions or masses noted. Facial features are symmetric. Eyes: Extraocular muscles are intact. Conjunctivae were clear. NECK: Trachea midline no deviation. No JVD CARDIAC: Regular rhythm, regular rate. S1/S2 are heard. No murmurs gallops or rubs. LUNGS: Clear to auscultation bilaterally. No wheeze, rhonchi or rales. No use of accessory muscles on inspiration or expiration. ABDOMEN: Soft, nontender. Nondistended. Bowel sounds heard in all 4 quadrants. No organomegaly or masses. Negative rebound, negative guarding EXTREMITIES: No edema, pulses are equal bilaterally. No cyanosis or clubbing NEUROLOGY: Mood and affect appear appropriate. Cranial nerves II through XII grossly intact. Moving all extremities, speech is clear Procedures None. Urinary Catheter: No Vascular Central Line Catheter: No A/P Assessment and Plan Total Self Care Deficit: Case management trying to find appropriate placement. 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 Reported mental capacity of 89 year-old. Patient is a flight risk, patient has to have sitter ordered Hypertension, improved Lisinopril 20 mg daily Norvasc 10 mg daily DVT Prophylaxis: Low risk, patient ambulating Discharge Planning Discharge once arrangements made by case management Yaniv Simmons Dec 03, 2016 11:14
[2016-12-03 20:00] VITALS: BP 122/86; PULSE 81; RESP 18; TEMP 96.9; O2SAT 97
[2016-12-04] MEDS: LISINOPRIL 20 MG TAB PO SCH (08:19)
[2016-12-04 08:27] VITALS: BP 121/86; PULSE 87; RESP 16; TEMP 98.6; O2SAT 98
--- NOTE | 2016-12-04 11:54 | HHI.PR ---
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 Patient doing quite well. No change in clinical status. Awaiting case management for discharge planning Objective Vitals Vital Signs Date Time Temp Pulse Resp B/P Pulse Ox O2 Delivery O2 Flow Rate FiO2 12/04/16 08:27 98.6 87 16 121/86 98 12/03/16 20:00 96.9 81 18 122/86 97 I/O 12/03/16 12/03/16 12/03/16 12/04/16 12/04/16 12/04/16 07:00 15:00 23:00 07:00 15:00 23:00 Intake Total 240 ml 600 ml Balance 240 ml 600 ml Intake Oral 240 ml 600 ml # Voids 1 3 2 # Bowel Movements 0 0 Objective Remarks GENERAL: Well-developed, well-nourished, in no acute distress. alert HEENT: Head is normocephalic without any lesions or masses noted. Facial features are symmetric. Eyes: Extraocular muscles are intact. Conjunctivae were clear. NECK: Trachea midline no deviation. No JVD CARDIAC: Regular rhythm, regular rate. S1/S2 are heard. No murmurs gallops or rubs. LUNGS: Clear to auscultation bilaterally. No wheeze, rhonchi or rales. No use of accessory muscles on inspiration or expiration. ABDOMEN: Soft, nontender. Nondistended. Bowel sounds heard in all 4 quadrants. No organomegaly or masses. Negative rebound, negative guarding EXTREMITIES: No edema, pulses are equal bilaterally. No cyanosis or clubbing NEUROLOGY: Mood and affect appear appropriate. Cranial nerves II through XII grossly intact. Moving all extremities, speech is clear Procedures None. Urinary Catheter: No Vascular Central Line Catheter: No A/P Assessment and Plan Total Self Care Deficit: Case management trying to find appropriate placement. 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 Reported mental capacity of 89 year-old. Patient is a flight risk, patient has to have sitter ordered Hypertension, improved Lisinopril 20 mg daily Norvasc 10 mg daily DVT Prophylaxis: Low risk, patient ambulating Discharge Planning Discharge once arrangements made by case management Yaniv Simmons Dec 04, 2016 11:54
[2016-12-04 20:00] VITALS: BP 121/68; PULSE 72; RESP 16; TEMP 99; O2SAT 98
[2016-12-05] MEDS: LISINOPRIL 20 MG TAB PO SCH (07:28)
--- NOTE | 2016-12-05 07:43 | HHI.PR ---
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 Patient sitting in bed. Denies any new complaints. Objective Vitals Vital Signs Date Time Temp Pulse Resp B/P Pulse Ox O2 Delivery O2 Flow Rate FiO2 12/04/16 20:00 99.0 72 16 121/68 98 12/04/16 08:27 98.6 87 16 121/86 98 I/O 12/04/16 12/04/16 12/04/16 12/05/16 12/05/16 12/05/16 07:00 15:00 23:00 07:00 15:00 23:00 Intake Total 480 ml Balance 480 ml Intake Oral 480 ml # Voids 2 6 2 # Bowel Movements 0 0 Objective Remarks GENERAL: Well-developed, well-nourished, in no acute distress. alert HEENT: Head is normocephalic without any lesions or masses noted. Facial features are symmetric. Eyes: Extraocular muscles are intact. Conjunctivae were clear. NECK: Trachea midline no deviation. No JVD CARDIAC: Regular rhythm, regular rate. S1/S2 are heard. No murmurs gallops or rubs. LUNGS: Clear to auscultation bilaterally. No wheeze, rhonchi or rales. No use of accessory muscles on inspiration or expiration. ABDOMEN: Soft, nontender. Nondistended. Bowel sounds heard in all 4 quadrants. No organomegaly or masses. Negative rebound, negative guarding EXTREMITIES: No edema, pulses are equal bilaterally. No cyanosis or clubbing NEUROLOGY: Mood and affect appear appropriate. Cranial nerves II through XII grossly intact. Moving all extremities, speech is clear Procedures None. Urinary Catheter: No Vascular Central Line Catheter: No A/P Assessment and Plan Total Self Care Deficit: Case management trying to find appropriate placement. 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 Reported mental capacity of 89 year-old. Patient is a flight risk, patient has to have sitter ordered Hypertension, stable Lisinopril 20 mg daily Norvasc 10 mg daily DVT Prophylaxis: Low risk, patient ambulating Discharge Planning Discharge once arrangements made by case management Yaniv Simmons Dec 05, 2016 07:43
[2016-12-05 07:59] VITALS: BP 123/81; PULSE 62; RESP 18; TEMP 96.8; O2SAT 98
[2016-12-05 15:37] VITALS: BP 123/81; PULSE 62; RESP 18; TEMP 96.8; O2SAT 98
[2016-12-05 20:00] VITALS: BP 145/81; PULSE 87; RESP 18; TEMP 98.1; O2SAT 99
[2016-12-06 08:00] VITALS: BP 126/82; PULSE 96; RESP 16; TEMP 97.9; O2SAT 99
--- NOTE | 2016-12-06 11:05 | HHI.PR ---
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 Patient denies any new complaints. No change in clinical status. Awaiting case management for discharge planning Objective Vitals Vital Signs Date Time Temp Pulse Resp B/P (MAP) Pulse Ox O2 Delivery O2 Flow Rate FiO2 12/06/16 08:00 97.9 96 16 126/82 (97) 99 12/05/16 20:00 98.1 87 18 145/81 (102) 99 12/05/16 15:37 96.8 62 18 123/81 (95) 98 I/O 12/05/16 12/05/16 12/05/16 12/06/16 12/06/16 12/06/16 06:59 14:59 22:59 06:59 14:59 22:59 Intake Total 480 ml 240 ml 120 ml Balance 480 ml 240 ml 120 ml Intake Oral 480 ml 240 ml 120 ml # Voids 2 6 2 # Bowel Movements 0 1 0 Objective Remarks GENERAL: Well-developed, well-nourished, in no acute distress. alert HEENT: Head is normocephalic without any lesions or masses noted. Facial features are symmetric. Eyes: Extraocular muscles are intact. Conjunctivae were clear. NECK: Trachea midline no deviation. No JVD CARDIAC: Regular rhythm, regular rate. S1/S2 are heard. No murmurs gallops or rubs. LUNGS: Clear to auscultation bilaterally. No wheeze, rhonchi or rales. No use of accessory muscles on inspiration or expiration. ABDOMEN: Soft, nontender. Nondistended. Bowel sounds heard in all 4 quadrants. No organomegaly or masses. Negative rebound, negative guarding EXTREMITIES: No edema, pulses are equal bilaterally. No cyanosis or clubbing NEUROLOGY: Mood and affect appear appropriate. Cranial nerves II through XII grossly intact. Moving all extremities, speech is clear Procedures None. 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 Reported mental capacity of 89 year-old. Patient is a flight risk, patient has to have sitter ordered Hypertension, stable Lisinopril 20 mg daily Norvasc 10 mg daily DVT Prophylaxis: Low risk, patient ambulating Discharge Planning Discharge once arrangements made by case management Yaniv Simmons Dec 06, 2016 11:05
[2016-12-06 20:00] VITALS: BP 125/82; PULSE 89; RESP 16; TEMP 98.2; O2SAT 95
[2016-12-07] MEDS: LISINOPRIL 20 MG TAB PO SCH (08:53)
[2016-12-07 09:19] VITALS: BP 130/84; PULSE 85; RESP 16; TEMP 98.8; O2SAT 96
--- NOTE | 2016-12-07 10:11 | HHI.PR ---
Subjective Remarks Follow-up for placement issue. Patient with Dandy-Walker syndrome. No acute complaints. Objective Vitals Vital Signs Date Time Temp Pulse Resp B/P (MAP) Pulse Ox O2 Delivery O2 Flow Rate FiO2 12/07/16 09:19 98.8 85 16 130/84 (99) 96 12/06/16 20:00 98.2 89 16 125/82 (96) 95 I/O 12/06/16 12/06/16 12/06/16 12/07/16 12/07/16 12/07/16 07:00 15:00 23:00 07:00 15:00 23:00 Intake Total 120 ml 500 ml Balance 120 ml 500 ml Intake Oral 120 ml 500 ml # Voids 2 2 # Bowel Movements 0 0 Objective Remarks GENERAL: Pleasant well-developed well-nourished patient in no apparent distress. CARDIOVASCULAR: Regular rate and rhythm. RESPIRATORY: No accessory muscle use. Clear to auscultation. Breath sounds equal bilaterally. GASTROINTESTINAL: Abdomen soft, non-tender, nondistended. NEUROLOGICAL: Awake and alert. Normal speech. Procedures None. 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 Patient was initially Youssef acted and treated by psychiatrist. 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 Reported mental capacity of 89 year-old. Patient is a flight risk, patient has to have sitter. Hypertension: Stable Lisinopril 10 mg daily DVT Prophylaxis: Low risk, patient ambulating regularly Discharge Planning Per CMMelissaBuckner [facility] is not able to meet pt needs as he is a flight risk. Pt application has been submitted to [employer] by CM. Awaiting for application to be processed to assist with placement for this pt. Jazmín Meadows Dec 07, 2016 10:11
[2016-12-07 20:00] VITALS: BP 122/83; PULSE 100; RESP 16; TEMP 98.3; O2SAT 94
[2016-12-08] MEDS: LISINOPRIL 20 MG TAB PO SCH (09:35)
--- NOTE | 2016-12-08 12:20 | HHI.PR ---
Subjective Remarks Follow-up for unsafe discharge. Patient with Dandy-Walker syndrome. No acute complaints. Objective Vitals Vital Signs Date Time Temp Pulse Resp B/P (MAP) Pulse Ox O2 Delivery O2 Flow Rate FiO2 12/07/16 20:00 98.3 100 16 122/83 (96) 94 I/O 12/07/16 12/07/16 12/07/16 12/08/16 12/08/16 12/08/16 07:00 15:00 23:00 07:00 15:00 23:00 Intake Total 500 ml 2080 ml 480 ml Output Total 0 ml Balance 500 ml 2080 ml 480 ml Intake Oral 500 ml 2080 ml 480 ml Output Urine Total 0 ml Stool Total 0 ml # Voids 2 8 2 # Bowel Movements 0 2 0 Objective Remarks GENERAL: Pleasant well-developed well-nourished patient in no apparent distress. CARDIOVASCULAR: Tachycardic rate with regular rhythm. RESPIRATORY: No accessory muscle use. Clear to auscultation. Breath sounds equal bilaterally. GASTROINTESTINAL: Abdomen soft, non-tender, nondistended. NEUROLOGICAL: Awake and alert. Normal speech. Procedures None. 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 Patient was initially Youssef acted and treated by psychiatrist. 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 Reported mental capacity of 89 year-old. Patient is a flight risk, patient has to have sitter. Hypertension: Stable Lisinopril 10 mg daily DVT Prophylaxis: Low risk, patient ambulating regularly Discharge Planning Per CMHerbie [facility] is not able to meet pt needs as he is a flight risk. Pt application has been submitted to [employer] by CM. Awaiting for application to be processed to assist with placement for this pt. Jazmín Meadows Dec 08, 2016 12:20
[2016-12-08 12:41] VITALS: BP 123/91; PULSE 84; RESP 16; TEMP 98; O2SAT 99
[2016-12-08 20:00] VITALS: BP 116/73; PULSE 80; RESP 18; TEMP 95.1; O2SAT 97
[2016-12-09 08:00] VITALS: BP 106/70; PULSE 79; RESP 19; TEMP 98.3; O2SAT 98
[2016-12-09] MEDS: LISINOPRIL 20 MG TAB PO SCH (08:11)
--- NOTE | 2016-12-09 13:24 | HHI.PR ---
Subjective Remarks Follow-up for placement issue. No acute complaints. Objective Vitals Vital Signs Date Time Temp Pulse Resp B/P (MAP) Pulse Ox O2 Delivery O2 Flow Rate FiO2 12/09/16 08:00 98.3 79 19 106/70 (82) 98 12/08/16 20:00 95.1 80 18 116/73 (87) 97 I/O 12/08/16 12/08/16 12/08/16 12/09/16 12/09/16 12/09/16 07:00 15:00 23:00 07:00 15:00 23:00 Intake Total 480 ml 240 ml 240 ml Balance 480 ml 240 ml 240 ml Intake Oral 480 ml 240 ml 240 ml # Voids 2 2 2 # Bowel Movements 0 0 1 Objective Remarks GENERAL: Pleasant well-developed well-nourished patient in no apparent distress. CARDIOVASCULAR: Tachycardic rate with regular rhythm. RESPIRATORY: No accessory muscle use. Clear to auscultation. Breath sounds equal bilaterally. GASTROINTESTINAL: Abdomen soft, non-tender, nondistended. NEUROLOGICAL: Awake and alert. Normal speech. Procedures None. 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 Patient was initially Youssef acted and treated by psychiatrist. 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 Reported mental capacity of 89 year-old. Patient is a flight risk, patient has to have sitter. Hypertension: Stable Lisinopril 10 mg daily DVT Prophylaxis: Low risk, patient ambulating regularly Discharge Planning Per Herbie LOVE [facility] is not able to meet pt needs as he is a flight risk. Pt application has been submitted to [employer] by CM. Awaiting for application to be processed to assist with placement for this pt. Jazmín Meadows Dec 09, 2016 13:24
[2016-12-09 20:00] VITALS: BP 133/86; PULSE 83; RESP 18; TEMP 98.8; O2SAT 99
[2016-12-10 08:00] VITALS: BP 138/85; PULSE 74; RESP 18; TEMP 97; O2SAT 97
[2016-12-10] MEDS: LISINOPRIL 20 MG TAB PO SCH (08:21)
--- NOTE | 2016-12-10 14:39 | HHI.PR ---
Subjective Remarks Follow-up for placement issue. No acute complaints. Objective Vitals Vital Signs Date Time Temp Pulse Resp B/P (MAP) Pulse Ox O2 Delivery O2 Flow Rate FiO2 12/10/16 08:00 97.0 74 18 138/85 (102) 97 12/09/16 20:00 98.8 83 18 133/86 (102) 99 I/O 12/09/16 12/09/16 12/09/16 12/10/16 12/10/16 12/10/16 07:00 15:00 23:00 07:00 15:00 23:00 Intake Total 240 ml 1430 ml 240 ml Balance 240 ml 1430 ml 240 ml Intake Oral 240 ml 1430 ml 240 ml # Voids 2 2 1 3 # Bowel Movements 1 0 0 Objective Remarks GENERAL: Pleasant well-developed well-nourished patient in no apparent distress. CARDIOVASCULAR: Regular rate and rhythm. Equivocal murmur over pulmonic region. RESPIRATORY: No accessory muscle use. Clear to auscultation. Breath sounds equal bilaterally. GASTROINTESTINAL: Abdomen soft, non-tender, nondistended. NEUROLOGICAL: Awake and alert. Normal speech. Procedures None. 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 Patient was initially Youssef acted and treated by psychiatrist. 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 Reported mental capacity of 89 year-old. Patient is a flight risk, patient has to have sitter. Hypertension: Stable Lisinopril 10 mg daily DVT Prophylaxis: Low risk, patient ambulating regularly Discharge Planning Per Herbie LOVE [facility] is not able to meet pt needs as he is a flight risk. Pt application has been submitted to [employer] by CM. Awaiting for application to be processed to assist with placement for this pt. Jazmín Meadows Dec 10, 2016 14:39
[2016-12-10 20:00] VITALS: BP 117/73; PULSE 90; RESP 16; TEMP 97.8; O2SAT 99
[2016-12-11] MEDS: LISINOPRIL 20 MG TAB PO SCH (08:00)
[2016-12-11 09:33] VITALS: BP 108/66; PULSE 70; RESP 16; TEMP 96.7; O2SAT 98
--- NOTE | 2016-12-11 09:54 | HHI.PR ---
Subjective Remarks Follow-up for placement issue. Nurse informs me patient's blood pressure medications were held this morning as his BP was 108/66. Objective Vitals Vital Signs Date Time Temp Pulse Resp B/P (MAP) Pulse Ox O2 Delivery O2 Flow Rate FiO2 12/11/16 09:33 96.7 70 16 108/66 (80) 98 12/10/16 20:00 97.8 90 16 117/73 (88) 99 I/O 12/10/16 12/10/16 12/10/16 12/11/16 12/11/16 12/11/16 07:00 15:00 23:00 07:00 15:00 23:00 Intake Total 240 ml 240 ml 480 ml 240 ml Balance 240 ml 240 ml 480 ml 240 ml Intake Oral 240 ml 240 ml 480 ml 240 ml # Voids 1 6 2 2 # Bowel Movements 0 0 0 Objective Remarks GENERAL: Pleasant well-developed well-nourished patient in no apparent distress with blanket over his head and body, and will not take it down for exam. CARDIOVASCULAR: Regular rate and rhythm. RESPIRATORY: No accessory muscle use. Clear to auscultation. Breath sounds equal bilaterally. NEUROLOGICAL: Awake and alert. Normal speech. Procedures None. 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 Patient was initially Youssef acted and treated by psychiatrist. 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 Reported mental capacity of 89 year-old. Patient is a flight risk, patient has to have sitter. Hypertension: Stable Lisinopril 20 mg daily Amlodipine 10 mg daily 12/11: BP meds held this morning. If patient remains hypotensive, can likely decrease dose of medications or discontinue one. DVT Prophylaxis: Low risk, patient ambulating regularly Discharge Planning Per Herbie LOVE [facility] is not able to meet pt needs as he is a flight risk. Pt application has been submitted to [employer] by CM. Awaiting for application to be processed to assist with placement for this pt. Jazmín Meadows Dec 11, 2016 09:54
[2016-12-11 20:00] VITALS: BP 139/84; PULSE 76; RESP 22; TEMP 97.8; O2SAT 99
[2016-12-12 08:00] VITALS: BP 114/77; PULSE 68; RESP 16; TEMP 98.2; O2SAT 96
[2016-12-12] MEDS: LISINOPRIL 20 MG TAB PO SCH (08:35)
--- NOTE | 2016-12-12 11:04 | HHI.PR ---
Subjective Remarks Follow-up for placement issue. Patient has no acute complaints. Objective Vitals Vital Signs Date Time Temp Pulse Resp B/P (MAP) Pulse Ox O2 Delivery O2 Flow Rate FiO2 12/12/16 08:00 98.2 68 16 114/77 (89) 96 12/11/16 20:00 97.8 76 22 139/84 (102) 99 I/O 12/11/16 12/11/16 12/11/16 12/12/16 12/12/16 12/12/16 06:59 14:59 22:59 06:59 14:59 22:59 Intake Total 240 ml 480 ml Balance 240 ml 480 ml Intake Oral 240 ml 480 ml # Voids 2 1 2 # Bowel Movements 0 Objective Remarks GENERAL: Pleasant well-developed well-nourished patient in no apparent distress. CARDIOVASCULAR: Tachycardic rate and regular rhythm. Murmur present over pulmonic region. RESPIRATORY: No accessory muscle use. Clear to auscultation. Breath sounds equal bilaterally. GASTROINTESTINAL: Abdomen soft, non-tender, non-distended. NEUROLOGICAL: Awake and alert. Normal speech. Procedures None. 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 Patient was initially Youssef acted and treated by psychiatrist. 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 Reported mental capacity of 89 year-old. Patient is a flight risk, patient has to have sitter. Hypertension: Stable Lisinopril 20 mg daily Amlodipine 10 mg daily DVT Prophylaxis: Low risk, patient ambulating regularly Discharge Planning Per Herbie LOVE [facility] is not able to meet pt needs as he is a flight risk. Pt application has been submitted to [employer] by CM. Awaiting for application to be processed to assist with placement for this pt. Jazmín Meadows Dec 12, 2016 11:04
[2016-12-12 20:00] VITALS: BP 113/79; PULSE 72; RESP 16; TEMP 97.5; O2SAT 98
[2016-12-13] MEDS: LISINOPRIL 20 MG TAB PO SCH (08:42)
[2016-12-13 09:11] VITALS: BP 138/83; PULSE 74; RESP 18; TEMP 97.8; O2SAT 100
--- NOTE | 2016-12-13 11:24 | HHI.PR ---
Subjective Remarks Follow-up for placement issue. No acute complaints. Objective Vitals Vital Signs Date Time Temp Pulse Resp B/P (MAP) Pulse Ox O2 Delivery O2 Flow Rate FiO2 12/13/16 09:11 97.8 74 18 138/83 (101) 100 12/12/16 20:00 97.5 72 16 113/79 (90) 98 I/O 12/12/16 12/12/16 12/12/16 12/13/16 12/13/16 12/13/16 07:00 15:00 23:00 07:00 15:00 23:00 Intake Total 480 ml 500 ml 480 ml Balance 480 ml 500 ml 480 ml Intake Oral 480 ml 500 ml 480 ml # Voids 2 2 1 2 # Bowel Movements 1 0 0 Objective Remarks GENERAL: Pleasant well-developed well-nourished patient in no apparent distress. CARDIOVASCULAR: Tachycardic rate and regular rhythm. Murmur present over pulmonic region. RESPIRATORY: No accessory muscle use. Clear to auscultation. Breath sounds equal bilaterally. GASTROINTESTINAL: Abdomen soft, non-tender, non-distended. NEUROLOGICAL: Awake and alert. Normal speech. Procedures None. 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 Patient was initially Youssef acted and treated by psychiatrist. 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 Reported mental capacity of 89 year-old. Patient is a flight risk, patient has to have sitter. Hypertension: Stable Lisinopril 20 mg daily Amlodipine 10 mg daily DVT Prophylaxis: Low risk, patient ambulating regularly Discharge Planning Per Herbie LOVE [facility] is not able to meet pt needs as he is a flight risk. Pt application has been submitted to [employer] by CM. Awaiting for application to be processed to assist with placement for this pt. Jazmín Meadows Dec 13, 2016 11:24
[2016-12-13 20:00] VITALS: BP 158/84; PULSE 88; RESP 20; TEMP 97.7; O2SAT 99
[2016-12-14] MEDS: LISINOPRIL 20 MG TAB PO SCH (08:32)
--- NOTE | 2016-12-14 11:50 | HHI.PR ---
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 Patient denies any new complaints. Patient consistently walking the halls. No change in clinical status. Awaiting case management for discharge planning Objective Vitals Vital Signs Date Time Temp Pulse Resp B/P (MAP) Pulse Ox O2 Delivery O2 Flow Rate FiO2 12/13/16 20:00 97.7 88 20 158/84 (108) 99 I/O 12/13/16 12/13/16 12/13/16 12/14/16 12/14/16 12/14/16 06:59 14:59 22:59 06:59 14:59 22:59 Intake Total 480 ml 0 ml Balance 480 ml 0 ml Intake Oral 480 ml 0 ml # Voids 2 4 3 # Bowel Movements 0 1 Objective Remarks GENERAL: Well-developed, well-nourished, in no acute distress. alert HEENT: Head is normocephalic without any lesions or masses noted. Facial features are symmetric. Eyes: Extraocular muscles are intact. Conjunctivae were clear. NECK: Trachea midline no deviation. No JVD CARDIAC: Regular rhythm, regular rate. S1/S2 are heard. No murmurs gallops or rubs. LUNGS: Clear to auscultation bilaterally. No wheeze, rhonchi or rales. No use of accessory muscles on inspiration or expiration. ABDOMEN: Soft, nontender. Nondistended. Bowel sounds heard in all 4 quadrants. No organomegaly or masses. Negative rebound, negative guarding EXTREMITIES: No edema, pulses are equal bilaterally. No cyanosis or clubbing NEUROLOGY: Mood and affect appear appropriate. Cranial nerves II through XII grossly intact. Moving all extremities, speech is clear Procedures None. Urinary Catheter: No Vascular Central Line Catheter: No A/P Assessment and Plan Total Self Care Deficit: Case management trying to find appropriate placement. 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 Reported mental capacity of 89 year-old. Patient is a flight risk, patient has to have sitter ordered Hypertension, stable Lisinopril 20 mg daily Norvasc 10 mg daily DVT Prophylaxis: Low risk, patient ambulating Discharge Planning Discharge once arrangements made by case management Yaniv Simmons Dec 14, 2016 11:50
[2016-12-14 12:59] VITALS: BP 121/75; PULSE 56; RESP 22; TEMP 98; O2SAT 100
[2016-12-14 20:00] VITALS: BP 125/76; PULSE 81; RESP 20; TEMP 98.1; O2SAT 99
[2016-12-15 08:00] VITALS: BP 132/77; PULSE 67; RESP 18; TEMP 97; O2SAT 98
[2016-12-15] MEDS: LISINOPRIL 20 MG TAB PO SCH (08:11)
--- NOTE | 2016-12-15 12:42 | HHI.PR ---
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 Patient denies any new complaints. No change in clinical status. Awaiting case management for discharge planning. Objective Vitals Vital Signs Date Time Temp Pulse Resp B/P (MAP) Pulse Ox O2 Delivery O2 Flow Rate FiO2 12/15/16 08:00 97.0 67 18 132/77 (95) 98 12/14/16 20:00 98.1 81 20 125/76 (92) 99 12/14/16 12:59 98.0 56 22 121/75 (90) 100 I/O 12/14/16 12/14/16 12/14/16 12/15/16 12/15/16 12/15/16 06:59 14:59 22:59 06:59 14:59 22:59 Intake Total 0 ml 60 ml Balance 0 ml 60 ml Intake Oral 0 ml 60 ml # Voids 3 4 3 # Bowel Movements 1 0 Objective Remarks GENERAL: Well-developed, well-nourished, in no acute distress. alert HEENT: Head is normocephalic without any lesions or masses noted. Facial features are symmetric. Eyes: Extraocular muscles are intact. Conjunctivae were clear. NECK: Trachea midline no deviation. No JVD CARDIAC: Regular rhythm, regular rate. S1/S2 are heard. No murmurs gallops or rubs. LUNGS: Clear to auscultation bilaterally. No wheeze, rhonchi or rales. No use of accessory muscles on inspiration or expiration. ABDOMEN: Soft, nontender. Nondistended. Bowel sounds heard in all 4 quadrants. No organomegaly or masses. Negative rebound, negative guarding EXTREMITIES: No edema, pulses are equal bilaterally. No cyanosis or clubbing NEUROLOGY: Mood and affect appear appropriate. Cranial nerves II through XII grossly intact. Moving all extremities, speech is clear Procedures None. Urinary Catheter: No Vascular Central Line Catheter: No A/P Assessment and Plan Total Self Care Deficit: Case management trying to find appropriate placement. 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 Reported mental capacity of 89 year-old. Patient is a flight risk, patient has to have sitter ordered Hypertension, stable Lisinopril 20 mg daily Norvasc 10 mg daily DVT Prophylaxis: Low risk, patient ambulating Discharge Planning Discharge once arrangements made by case management Yaniv Simmons Dec 15, 2016 12:42
[2016-12-15 20:00] VITALS: BP 131/78; PULSE 76; RESP 20; TEMP 96.9; O2SAT 98
[2016-12-16 08:00] VITALS: BP 111/58; PULSE 55; RESP 16; TEMP 97.8; O2SAT 97
[2016-12-16] MEDS: LISINOPRIL 20 MG TAB PO SCH (09:59)
--- NOTE | 2016-12-16 10:43 | HHI.PR ---
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 Patient denies any new complaints. No change in clinical status. Awaiting case management for discharge planning Objective Vitals Vital Signs Date Time Temp Pulse Resp B/P (MAP) Pulse Ox O2 Delivery O2 Flow Rate FiO2 12/16/16 08:00 97.8 55 16 111/58 (75) 97 12/15/16 20:00 96.9 76 20 131/78 (95) 98 I/O 12/15/16 12/15/16 12/15/16 12/16/16 12/16/16 12/16/16 06:59 14:59 22:59 06:59 14:59 22:59 Intake Total 60 ml 480 ml 240 ml Output Total 2 ml Balance 60 ml 480 ml 238 ml Intake Oral 60 ml 480 ml 240 ml Output Urine Total 2 ml # Voids 3 # Bowel Movements 0 Objective Remarks GENERAL: Well-developed, well-nourished, in no acute distress. alert HEENT: Head is normocephalic without any lesions or masses noted. Facial features are symmetric. Eyes: Extraocular muscles are intact. Conjunctivae were clear. NECK: Trachea midline no deviation. No JVD CARDIAC: Regular rhythm, regular rate. S1/S2 are heard. No murmurs gallops or rubs. LUNGS: Clear to auscultation bilaterally. No wheeze, rhonchi or rales. No use of accessory muscles on inspiration or expiration. ABDOMEN: Soft, nontender. Nondistended. Bowel sounds heard in all 4 quadrants. No organomegaly or masses. Negative rebound, negative guarding EXTREMITIES: No edema, pulses are equal bilaterally. No cyanosis or clubbing NEUROLOGY: Mood and affect appear appropriate. Cranial nerves II through XII grossly intact. Moving all extremities, speech is clear Procedures None. Urinary Catheter: No Vascular Central Line Catheter: No A/P Assessment and Plan Total Self Care Deficit: Case management trying to find appropriate placement. 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 Reported mental capacity of 89 year-old. Patient is a flight risk, patient has to have sitter ordered Hypertension, stable Lisinopril 20 mg daily Norvasc 10 mg daily DVT Prophylaxis: Low risk, patient ambulating Discharge Planning Discharge once arrangements made by case management Yaniv Simmons Dec 16, 2016 10:43
[2016-12-16 20:00] VITALS: BP 129/99; PULSE 74; RESP 20; TEMP 98.6; O2SAT 96
[2016-12-17 08:00] VITALS: BP 137/79; PULSE 64; RESP 18; TEMP 97.3; O2SAT 97
[2016-12-17] MEDS: LISINOPRIL 20 MG TAB PO SCH (09:20)
--- NOTE | 2016-12-17 11:09 | HHI.PR ---
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 Patient sitting in bed. Denies any new complaints. No change in clinical status. Awaiting case management for discharge planning Objective Vitals Vital Signs Date Time Temp Pulse Resp B/P (MAP) Pulse Ox O2 Delivery O2 Flow Rate FiO2 12/17/16 08:00 97.3 64 18 137/79 (98) 97 12/16/16 20:00 98.6 74 20 129/99 (109) 96 I/O 12/16/16 12/16/16 12/16/16 12/17/16 12/17/16 12/17/16 06:59 14:59 22:59 06:59 14:59 22:59 Intake Total 240 ml 500 ml 240 ml Output Total 2 ml Balance 238 ml 500 ml 240 ml Intake Oral 240 ml 500 ml 240 ml Output Urine Total 2 ml # Voids 1 Objective Remarks GENERAL: Well-developed, well-nourished, in no acute distress. alert HEENT: Head is normocephalic without any lesions or masses noted. Facial features are symmetric. Eyes: Extraocular muscles are intact. Conjunctivae were clear. NECK: Trachea midline no deviation. No JVD CARDIAC: Regular rhythm, regular rate. S1/S2 are heard. No murmurs gallops or rubs. LUNGS: Clear to auscultation bilaterally. No wheeze, rhonchi or rales. No use of accessory muscles on inspiration or expiration. ABDOMEN: Soft, nontender. Nondistended. Bowel sounds heard in all 4 quadrants. No organomegaly or masses. Negative rebound, negative guarding EXTREMITIES: No edema, pulses are equal bilaterally. No cyanosis or clubbing NEUROLOGY: Mood and affect appear appropriate. Cranial nerves II through XII grossly intact. Moving all extremities, speech is clear Procedures None. Urinary Catheter: No Vascular Central Line Catheter: No A/P Assessment and Plan Total Self Care Deficit: Case management trying to find appropriate placement. 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 Reported mental capacity of 89 year-old. Patient is a flight risk, patient has to have sitter ordered Hypertension, stable Lisinopril 20 mg daily Norvasc 10 mg daily DVT Prophylaxis: Low risk, patient ambulating Discharge Planning Discharge once arrangements made by case management Yaniv Simmons Dec 17, 2016 11:09
[2016-12-17 20:00] VITALS: BP 118/74; PULSE 85; RESP 16; TEMP 98.1; O2SAT 98
--- NOTE | 2016-12-18 08:38 | HHI.PR ---
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 Patient lying in bed comfortably. Denies any new complaints. No change in clinical status. Awaiting case management for discharge planning. Objective Vitals Vital Signs Date Time Temp Pulse Resp B/P (MAP) Pulse Ox O2 Delivery O2 Flow Rate FiO2 12/17/16 20:00 98.1 85 16 118/74 (89) 98 I/O 12/17/16 12/17/16 12/17/16 12/18/16 12/18/16 12/18/16 06:59 14:59 22:59 06:59 14:59 22:59 Intake Total 240 ml 0 ml 1580 ml 240 ml Balance 240 ml 0 ml 1580 ml 240 ml Intake Oral 240 ml 1580 ml 240 ml IV Total 0 ml # Voids 1 6 1 # Bowel Movements 0 0 Objective Remarks GENERAL: Well-developed, well-nourished, in no acute distress. alert HEENT: Head is normocephalic without any lesions or masses noted. Facial features are symmetric. Eyes: Extraocular muscles are intact. Conjunctivae were clear. NECK: Trachea midline no deviation. No JVD CARDIAC: Regular rhythm, regular rate. S1/S2 are heard. No murmurs gallops or rubs. LUNGS: Clear to auscultation bilaterally. No wheeze, rhonchi or rales. No use of accessory muscles on inspiration or expiration. ABDOMEN: Soft, nontender. Nondistended. Bowel sounds heard in all 4 quadrants. No organomegaly or masses. Negative rebound, negative guarding EXTREMITIES: No edema, pulses are equal bilaterally. No cyanosis or clubbing NEUROLOGY: Mood and affect appear appropriate. Cranial nerves II through XII grossly intact. Moving all extremities, speech is clear Procedures None. Urinary Catheter: No Vascular Central Line Catheter: No A/P Assessment and Plan Total Self Care Deficit: Case management trying to find appropriate placement. 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 Reported mental capacity of 89 year-old. Patient is a flight risk, patient has to have sitter ordered Hypertension, stable Lisinopril 20 mg daily Norvasc 10 mg daily DVT Prophylaxis: Low risk, patient ambulating Discharge Planning Discharge once arrangements made by case management Yaniv Simmons Dec 18, 2016 08:38
[2016-12-18 08:52] VITALS: BP 124/72; PULSE 64; RESP 18; TEMP 98.1; O2SAT 100
[2016-12-18] MEDS: LISINOPRIL 20 MG TAB PO SCH (10:16)
[2016-12-18 20:00] VITALS: BP 127/75; PULSE 94; RESP 16; TEMP 97.7; O2SAT 96
[2016-12-19 08:38] VITALS: BP 126/67; PULSE 74; RESP 20; TEMP 98.2; O2SAT 100
[2016-12-19] MEDS: LISINOPRIL 20 MG TAB PO SCH (09:16)
--- NOTE | 2016-12-19 13:58 | HHI.PR ---
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 Patient sitting in bed. Denies any new complaints. Awaiting case management for discharge planning Objective Vitals Vital Signs Date Time Temp Pulse Resp B/P (MAP) Pulse Ox O2 Delivery O2 Flow Rate FiO2 12/19/16 08:38 98.2 74 20 126/67 (86) 100 12/18/16 20:00 97.7 94 16 127/75 (92) 96 I/O 12/18/16 12/18/16 12/18/16 12/19/16 12/19/16 12/19/16 07:00 15:00 23:00 07:00 15:00 23:00 Intake Total 240 ml 500 ml 480 ml 220 ml Balance 240 ml 500 ml 480 ml 220 ml Intake Oral 240 ml 500 ml 480 ml 220 ml # Voids 1 2 1 1 # Bowel Movements 0 1 0 0 Objective Remarks GENERAL: Well-developed, well-nourished, in no acute distress. alert HEENT: Head is normocephalic without any lesions or masses noted. Facial features are symmetric. Eyes: Extraocular muscles are intact. Conjunctivae were clear. NECK: Trachea midline no deviation. No JVD CARDIAC: Regular rhythm, regular rate. S1/S2 are heard. No murmurs gallops or rubs. LUNGS: Clear to auscultation bilaterally. No wheeze, rhonchi or rales. No use of accessory muscles on inspiration or expiration. ABDOMEN: Soft, nontender. Nondistended. Bowel sounds heard in all 4 quadrants. No organomegaly or masses. Negative rebound, negative guarding EXTREMITIES: No edema, pulses are equal bilaterally. No cyanosis or clubbing NEUROLOGY: Mood and affect appear appropriate. Cranial nerves II through XII grossly intact. Moving all extremities, speech is clear Procedures None. Urinary Catheter: No Vascular Central Line Catheter: No A/P Assessment and Plan Total Self Care Deficit: Case management trying to find appropriate placement. 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 Reported mental capacity of 89 year-old. Patient is a flight risk, patient has to have sitter ordered Hypertension, stable Lisinopril 20 mg daily Norvasc 10 mg daily DVT Prophylaxis: Low risk, patient ambulating Discharge Planning Discharge once arrangements made by case management Yaniv Simmons Dec 19, 2016 13:58
[2016-12-19 20:00] VITALS: BP 132/80; PULSE 100; RESP 18; TEMP 98.8; O2SAT 99
[2016-12-20 08:00] VITALS: BP 135/74; PULSE 96; RESP 16; TEMP 98; O2SAT 97
[2016-12-20] MEDS: LISINOPRIL 20 MG TAB PO SCH (09:08)
--- NOTE | 2016-12-20 10:20 | HHI.PR ---
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 Patient denies any new complaints. Sitting in bed resting comfortably eating breakfast. Awaiting case management for discharge planning Objective Vitals Vital Signs Date Time Temp Pulse Resp B/P (MAP) Pulse Ox O2 Delivery O2 Flow Rate FiO2 12/20/16 08:00 98.0 96 16 135/74 (94) 97 12/19/16 20:00 98.8 100 18 132/80 (97) 99 I/O 12/19/16 12/19/16 12/19/16 12/20/16 12/20/16 12/20/16 07:00 15:00 23:00 07:00 15:00 23:00 Intake Total 220 ml 480 ml 480 ml Balance 220 ml 480 ml 480 ml Intake Oral 220 ml 480 ml 480 ml # Voids 1 2 2 # Bowel Movements 0 1 0 Objective Remarks GENERAL: Well-developed, well-nourished, in no acute distress. alert HEENT: Head is normocephalic without any lesions or masses noted. Facial features are symmetric. Eyes: Extraocular muscles are intact. Conjunctivae were clear. NECK: Trachea midline no deviation. No JVD CARDIAC: Regular rhythm, regular rate. S1/S2 are heard. No murmurs gallops or rubs. LUNGS: Clear to auscultation bilaterally. No wheeze, rhonchi or rales. No use of accessory muscles on inspiration or expiration. ABDOMEN: Soft, nontender. Nondistended. Bowel sounds heard in all 4 quadrants. No organomegaly or masses. Negative rebound, negative guarding EXTREMITIES: No edema, pulses are equal bilaterally. No cyanosis or clubbing NEUROLOGY: Mood and affect appear appropriate. Cranial nerves II through XII grossly intact. Moving all extremities, speech is clear Procedures None. Urinary Catheter: No Vascular Central Line Catheter: No A/P Assessment and Plan Total Self Care Deficit: Case management trying to find appropriate placement. 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 Reported mental capacity of 89 year-old. Patient is a flight risk, patient has to have sitter ordered Hypertension, stable Lisinopril 20 mg daily Norvasc 10 mg daily DVT Prophylaxis: Low risk, patient ambulating Discharge Planning Discharge once arrangements made by case management Yaniv Simmons Dec 20, 2016 10:20
[2016-12-20 20:00] VITALS: BP 130/90; PULSE 100; RESP 16; TEMP 97.8; O2SAT 96
[2016-12-21 08:36] VITALS: BP 123/76; PULSE 96; RESP 22; TEMP 98.5; O2SAT 99
[2016-12-21] MEDS: LISINOPRIL 20 MG TAB PO SCH (09:26)
--- NOTE | 2016-12-21 11:26 | HHI.PR ---
Subjective Remarks Follow-up for placement issue. No acute complaints Objective Vitals Vital Signs Date Time Temp Pulse Resp B/P (MAP) Pulse Ox O2 Delivery O2 Flow Rate FiO2 12/21/16 08:36 98.5 96 22 123/76 (92) 99 12/20/16 20:00 97.8 100 16 130/90 (103) 96 I/O 12/20/16 12/20/16 12/20/16 12/21/16 12/21/16 12/21/16 07:00 15:00 23:00 07:00 15:00 23:00 Intake Total 480 ml 1630 ml 0 ml Balance 480 ml 1630 ml 0 ml Intake Oral 480 ml 1630 ml IV Total 0 ml 0 ml # Voids 2 8 2 # Bowel Movements 0 0 Objective Remarks GENERAL: Pleasant well-developed well-nourished patient in no apparent distress. CARDIOVASCULAR: Tachycardic rate and regular rhythm. Murmur present over pulmonic region. RESPIRATORY: No accessory muscle use. Clear to auscultation. Breath sounds equal bilaterally. GASTROINTESTINAL: Abdomen soft, non-tender, non-distended. NEUROLOGICAL: Awake and alert. Normal speech. Procedures None. 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 Patient was initially Youssef acted and treated by psychiatrist. 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 Reported mental capacity of 89 year-old. Patient is a flight risk, patient has to have sitter. Hypertension: Stable Lisinopril 20 mg daily Amlodipine 10 mg daily DVT Prophylaxis: Low risk, patient ambulating regularly Discharge Planning Per CM Herbie [facility] is not able to meet pt needs as he is a flight risk. Pt application has been submitted to [employer] by CM. Awaiting for application to be processed to assist with placement for this pt. CM trying to reach father. Jazmín Meadows Dec 21, 2016 11:26
[2016-12-21 20:00] VITALS: BP 109/72; PULSE 85; RESP 20; TEMP 98.4; O2SAT 99
[2016-12-22 08:00] VITALS: BP 103/57; PULSE 88; RESP 16; TEMP 97.6; O2SAT 98
[2016-12-22 09:10] VITALS: BP 129/80; PULSE 102
[2016-12-22] MEDS: LISINOPRIL 20 MG TAB PO SCH (09:10)
[2016-12-22 09:40] VITALS: BP 103/57; PULSE 88; RESP 16; TEMP 97.6; O2SAT 98
--- NOTE | 2016-12-22 11:17 | HHI.PR ---
Subjective Remarks Follow-up for placement issue. No acute complaints. Objective Vitals Vital Signs Date Time Temp Pulse Resp B/P (MAP) Pulse Ox O2 Delivery O2 Flow Rate FiO2 12/22/16 09:10 102 129/80 (96) 12/22/16 08:00 97.6 88 16 103/57 (72) 98 12/21/16 20:00 98.4 85 20 109/72 (84) 99 I/O 12/21/16 12/21/16 12/21/16 12/22/16 12/22/16 12/22/16 07:00 15:00 23:00 07:00 15:00 23:00 Intake Total 0 ml 1000 ml 300 ml 615 ml Output Total 0 ml Balance 0 ml 1000 ml 300 ml 615 ml Intake Oral 1000 ml 300 ml 615 ml IV Total 0 ml 0 ml 0 ml Output Urine Total 0 ml Stool Total 0 ml # Voids 2 3 6 2 # Bowel Movements 1 1 1 Objective Remarks GENERAL: Pleasant well-developed well-nourished patient in no apparent distress. CARDIOVASCULAR: Tachycardic rate and regular rhythm. Murmur present over pulmonic region. RESPIRATORY: No accessory muscle use. Clear to auscultation. Breath sounds equal bilaterally. NEUROLOGICAL: Awake and alert. Normal speech. Procedures None. 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 Patient was initially Youssef acted and treated by psychiatrist. 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 Reported mental capacity of 89 year-old. Patient is a flight risk, patient has to have sitter. Hypertension: Stable Lisinopril 20 mg daily Amlodipine 10 mg daily DVT Prophylaxis: Low risk, patient ambulating regularly Discharge Planning Per Herbie [facility] is not able to meet pt needs as he is a flight risk. Pt application has been submitted to [employer] by CM. Awaiting for application to be processed to assist with placement for this pt. CM trying to reach father. Jazmín Meadows Dec 22, 2016 11:17
[2016-12-22 20:00] VITALS: BP 139/86; PULSE 103; RESP 16; TEMP 95.9; O2SAT 99
[2016-12-23 08:00] VITALS: BP 115/82; PULSE 81; RESP 16; TEMP 97.9; O2SAT 98
[2016-12-23] MEDS: LISINOPRIL 20 MG TAB PO SCH (09:07)
--- NOTE | 2016-12-23 10:28 | HHI.PR ---
Subjective Remarks Follow up for placement. No acute complaints. Objective Vitals Vital Signs Date Time Temp Pulse Resp B/P (MAP) Pulse Ox O2 Delivery O2 Flow Rate FiO2 12/23/16 08:00 97.9 81 16 115/82 (93) 98 12/22/16 20:00 95.9 103 16 139/86 (103) 99 I/O 12/22/16 12/22/16 12/22/16 12/23/16 12/23/16 12/23/16 07:00 15:00 23:00 07:00 15:00 23:00 Intake Total 615 ml Output Total 0 ml Balance 615 ml 0 ml Intake Oral 615 ml IV Total 0 ml Output Urine Total 0 ml # Voids 2 5 # Bowel Movements 1 2 Objective Remarks GENERAL: Pleasant well-developed well-nourished patient in no apparent distress. CARDIOVASCULAR: Regular rhythm. RESPIRATORY: No accessory muscle use. Clear to auscultation. Breath sounds equal bilaterally. GASTROINTESTINAL: Abdomen soft, non-tender, non-distended. NEUROLOGICAL: Awake and alert. Normal speech. Procedures None. 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 Patient was initially Youssef acted and treated by psychiatrist. 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 Reported mental capacity of 89 year-old. Patient is a flight risk, patient has to have sitter. Hypertension: Stable Lisinopril 20 mg daily Amlodipine 10 mg daily DVT Prophylaxis: Low risk, patient ambulating regularly Discharge Planning Per Herbie [facility] is not able to meet pt needs as he is a flight risk. Pt application has been submitted to [employer] by CM. Awaiting for application to be processed to assist with placement for this pt. CM trying to reach father. Jazmín Meadows Dec 23, 2016 10:28
[2016-12-23 20:00] VITALS: BP 129/78; PULSE 97; RESP 16; TEMP 97.1; O2SAT 98
[2016-12-24 08:28] VITALS: BP 133/44; PULSE 64; RESP 19; TEMP 97.2; O2SAT 98
[2016-12-24] MEDS: LISINOPRIL 20 MG TAB PO SCH (09:13)
--- NOTE | 2016-12-24 14:04 | HHI.PR ---
Subjective Remarks Follow-up for placement issue. No acute complaints. Objective Vitals Vital Signs Date Time Temp Pulse Resp B/P (MAP) Pulse Ox O2 Delivery O2 Flow Rate FiO2 12/24/16 08:28 97.2 64 19 133/44 (73) 98 12/23/16 20:00 97.1 97 16 129/78 (95) 98 I/O 12/23/16 12/23/16 12/23/16 12/24/16 12/24/16 12/24/16 07:00 15:00 23:00 07:00 15:00 23:00 Intake Total 350 ml 240 ml Balance 350 ml 240 ml Intake Oral 350 ml 240 ml # Voids 2 3 # Bowel Movements 1 1 Objective Remarks GENERAL: Pleasant well-developed well-nourished patient in no apparent distress. CARDIOVASCULAR: Tachycardic rate, regular rhythm. Murmur over pulmonic region. RESPIRATORY: No accessory muscle use. Clear to auscultation. Breath sounds equal bilaterally. GASTROINTESTINAL: Abdomen soft, non-tender, non-distended. NEUROLOGICAL: Awake and alert. Normal speech. Procedures None. 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 Patient was initially Youssef acted and treated by psychiatrist. 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 Reported mental capacity of 89 year-old. Patient is a flight risk, patient has to have sitter. Hypertension: Stable Lisinopril 20 mg daily Amlodipine 10 mg daily DVT Prophylaxis: Low risk, patient ambulating regularly Discharge Planning Per CM Herbie [facility] is not able to meet pt needs as he is a flight risk. Pt application has been submitted to [employer] by CM. Awaiting for application to be processed to assist with placement for this pt. CM trying to reach father. Jazmín Meadows Dec 24, 2016 14:04
[2016-12-24 20:05] VITALS: BP 117/68; PULSE 82; RESP 16; TEMP 98; O2SAT 100
[2016-12-25 08:00] VITALS: BP 124/74; PULSE 87; RESP 18; TEMP 98.3; O2SAT 98
[2016-12-25] MEDS: LISINOPRIL 20 MG TAB PO SCH (08:50)
--- NOTE | 2016-12-25 10:41 | HHI.PR ---
Subjective Remarks Follow-up for placement issue. No acute complaints. Objective Vitals Vital Signs Date Time Temp Pulse Resp B/P (MAP) Pulse Ox O2 Delivery O2 Flow Rate FiO2 12/25/16 08:00 98.3 87 18 124/74 (91) 98 12/24/16 20:05 98.0 82 16 117/68 (84) 100 I/O 12/24/16 12/24/16 12/24/16 12/25/16 12/25/16 12/25/16 07:00 15:00 23:00 07:00 15:00 23:00 Intake Total 240 ml 950 ml Balance 240 ml 950 ml Intake Oral 240 ml 950 ml # Voids 3 6 1 # Bowel Movements 1 1 Objective Remarks GENERAL: Pleasant well-developed well-nourished patient in no apparent distress. CARDIOVASCULAR: Regular rate and rhythm. RESPIRATORY: No accessory muscle use. Clear to auscultation. Breath sounds equal bilaterally. NEUROLOGICAL: Awake and alert. Normal speech. Procedures None. 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 Patient was initially Youssef acted and treated by psychiatrist. 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 Reported mental capacity of 89 year-old. Patient is a flight risk, patient has to have sitter. Hypertension: Stable Lisinopril 20 mg daily Amlodipine 10 mg daily DVT Prophylaxis: Low risk, patient ambulating regularly Discharge Planning Per CM Herbie [facility] is not able to meet pt needs as he is a flight risk. Pt application has been submitted to [employer] by CM. Awaiting for application to be processed to assist with placement for this pt. CM trying to reach father. Jazmín Meadows Dec 25, 2016 10:41
[2016-12-25 20:05] VITALS: BP 141/85; PULSE 90; RESP 18; TEMP 98.4; O2SAT 96
[2016-12-26 08:00] VITALS: BP 138/96; PULSE 83; RESP 22; TEMP 98.1; O2SAT 98
[2016-12-26] MEDS: LISINOPRIL 20 MG TAB PO SCH (08:01)
--- NOTE | 2016-12-26 09:16 | HHI.PR ---
Subjective Remarks Follow-up for placement issue. No acute complaints. Objective Vitals Vital Signs Date Time Temp Pulse Resp B/P (MAP) Pulse Ox O2 Delivery O2 Flow Rate FiO2 12/26/16 08:00 98.1 83 22 138/96 (110) 98 12/25/16 20:05 98.4 90 18 141/85 (103) 96 I/O 12/25/16 12/25/16 12/25/16 12/26/16 12/26/16 12/26/16 06:59 14:59 22:59 06:59 14:59 22:59 Intake Total 500 ml 300 ml Balance 500 ml 300 ml Intake Oral 500 ml 300 ml # Voids 1 3 2 1 # Bowel Movements 1 0 Objective Remarks GENERAL: Well-developed well-nourished patient in no apparent distress sleeping initially. CARDIOVASCULAR: Regular rate and rhythm. RESPIRATORY: No accessory muscle use. Clear to auscultation. Breath sounds equal bilaterally. NEUROLOGICAL: Awake and alert. Procedures None. 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 Patient was initially Youssef acted and treated by psychiatrist. 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 Reported mental capacity of 89 year-old. Patient is a flight risk, patient has to have sitter. Hypertension: Lisinopril 20 mg daily Amlodipine 10 mg daily 12/26: BP mildly elevated last night and this morning. Monitor. DVT Prophylaxis: Low risk, patient ambulating regularly Discharge Planning Per IVAN Herbie [facility] is not able to meet pt needs as he is a flight risk. Pt application has been submitted to [employer] by CM. Awaiting for application to be processed to assist with placement for this pt. CM trying to reach father. Jazmín Meadows Dec 26, 2016 09:16
[2016-12-26 20:00] VITALS: BP 98/59; PULSE 69; RESP 20; TEMP 96; O2SAT 98
[2016-12-27 08:00] VITALS: BP 134/82; PULSE 100; RESP 22; TEMP 98.2; O2SAT 99
[2016-12-27] MEDS: LISINOPRIL 20 MG TAB PO SCH (08:56)
--- NOTE | 2016-12-27 09:11 | HHI.PR ---
Subjective Remarks Follow-up for placement issue. No acute issues. Objective Vitals Vital Signs Date Time Temp Pulse Resp B/P (MAP) Pulse Ox O2 Delivery O2 Flow Rate FiO2 12/27/16 08:00 98.2 100 22 134/82 (99) 99 12/26/16 20:00 96.0 69 20 98/59 (72) 98 I/O 12/26/16 12/26/16 12/26/16 12/27/16 12/27/16 12/27/16 07:00 15:00 23:00 07:00 15:00 23:00 Intake Total 120 ml Balance 120 ml Intake Oral 120 ml # Voids 1 1 3 # Bowel Movements 0 Objective Remarks GENERAL: Well-developed well-nourished patient in no apparent distress. CARDIOVASCULAR: Regular rate and rhythm. RESPIRATORY: No accessory muscle use. Clear to auscultation. Breath sounds equal bilaterally. GASTROINTESTINAL: Abdomen soft, non-tender, non-distended. NEUROLOGICAL: Awake and alert. Procedures None. 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 Patient was initially Youssef acted and treated by psychiatrist. 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 Reported mental capacity of 89 year-old. Patient is a flight risk, patient has to have sitter. Hypertension: Stable Lisinopril 20 mg daily Amlodipine 10 mg daily DVT Prophylaxis: Low risk, patient ambulating regularly Discharge Planning Per Herbie LOVE BRENDA is not able to meet pt needs as he is a flight risk. Pt application has been submitted to [employer] by CM. Awaiting for application to be processed to assist with placement for this pt. CM trying to reach father. Jazmín Meadows Dec 27, 2016 09:10
[2016-12-27 20:00] VITALS: BP 111/75; PULSE 79; RESP 20; TEMP 96; O2SAT 97
[2016-12-28 08:00] VITALS: BP 124/85; PULSE 75; RESP 20; TEMP 98.1; O2SAT 100
--- NOTE | 2016-12-28 08:35 | HHI.PR ---
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 Patient denies any new complaints. Patient lying in bed carefully. No change in clinical status. Awaiting case management for discharge planning. Objective Vitals Vital Signs Date Time Temp Pulse Resp B/P (MAP) Pulse Ox O2 Delivery O2 Flow Rate FiO2 12/28/16 08:00 98.1 75 20 124/85 (98) 100 12/27/16 20:00 96.0 79 20 111/75 (87) 97 I/O 12/27/16 12/27/16 12/27/16 12/28/16 12/28/16 12/28/16 07:00 15:00 23:00 07:00 15:00 23:00 Intake Total 120 ml 240 ml 240 ml 120 ml Balance 120 ml 240 ml 240 ml 120 ml Intake Oral 120 ml 240 ml 240 ml 120 ml # Voids 3 4 4 1 # Bowel Movements 0 0 0 Objective Remarks GENERAL: Well-developed, well-nourished, in no acute distress. alert HEENT: Head is normocephalic without any lesions or masses noted. Facial features are symmetric. Eyes: Extraocular muscles are intact. Conjunctivae were clear. NECK: Trachea midline no deviation. No JVD CARDIAC: Regular rhythm, regular rate. S1/S2 are heard. No murmurs gallops or rubs. LUNGS: Clear to auscultation bilaterally. No wheeze, rhonchi or rales. No use of accessory muscles on inspiration or expiration. ABDOMEN: Soft, nontender. Nondistended. Bowel sounds heard in all 4 quadrants. No organomegaly or masses. Negative rebound, negative guarding EXTREMITIES: No edema, pulses are equal bilaterally. No cyanosis or clubbing NEUROLOGY: Mood and affect appear appropriate. Cranial nerves II through XII grossly intact. Moving all extremities, speech is clear Procedures None. Urinary Catheter: No Vascular Central Line Catheter: No A/P Assessment and Plan Total Self Care Deficit: Case management trying to find appropriate placement. 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 Reported mental capacity of 89 year-old. Patient is a flight risk, patient has to have sitter ordered Hypertension, stable Lisinopril 20 mg daily Norvasc 10 mg daily DVT Prophylaxis: Low risk, patient ambulating Discharge Planning Discharge once arrangements made by case management Yaniv Simmons Dec 28, 2016 08:35
[2016-12-28] MEDS: LISINOPRIL 20 MG TAB PO SCH (09:32)
[2016-12-28 20:00] VITALS: BP 147/88; PULSE 100; RESP 18; TEMP 97.8; O2SAT 99
[2016-12-29 08:00] VITALS: BP 123/86; PULSE 105; RESP 18; TEMP 97.8; O2SAT 98
[2016-12-29] MEDS: LISINOPRIL 20 MG TAB PO SCH (08:54)
--- NOTE | 2016-12-29 11:31 | HHI.PR ---
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 Patient lying in bed comfortably. There is no indication any problems or complaints. Awaiting case management for discharge planning Objective Vitals Vital Signs Date Time Temp Pulse Resp B/P (MAP) Pulse Ox O2 Delivery O2 Flow Rate FiO2 12/29/16 08:00 97.8 105 18 123/86 (98) 98 12/28/16 20:00 97.8 100 18 147/88 (107) 99 I/O 12/28/16 12/28/16 12/28/16 12/29/16 12/29/16 12/29/16 07:00 15:00 23:00 07:00 15:00 23:00 Intake Total 240 ml 120 ml 480 ml 240 ml Balance 240 ml 120 ml 480 ml 240 ml Intake Oral 240 ml 120 ml 480 ml 240 ml # Voids 4 1 4 1 # Bowel Movements 0 0 0 Objective Remarks GENERAL: Well-developed, well-nourished, in no acute distress. alert HEENT: Head is normocephalic without any lesions or masses noted. Facial features are symmetric. Eyes: Extraocular muscles are intact. Conjunctivae were clear. NECK: Trachea midline no deviation. No JVD CARDIAC: Regular rhythm, regular rate. S1/S2 are heard. No murmurs gallops or rubs. LUNGS: Clear to auscultation bilaterally. No wheeze, rhonchi or rales. No use of accessory muscles on inspiration or expiration. ABDOMEN: Soft, nontender. Nondistended. Bowel sounds heard in all 4 quadrants. No organomegaly or masses. Negative rebound, negative guarding EXTREMITIES: No edema, pulses are equal bilaterally. No cyanosis or clubbing NEUROLOGY: Mood and affect appear appropriate. Cranial nerves II through XII grossly intact. Moving all extremities, speech is clear Procedures None. Urinary Catheter: No Vascular Central Line Catheter: No A/P Assessment and Plan Total Self Care Deficit: Case management trying to find appropriate placement. 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 Reported mental capacity of 89 year-old. Patient is a flight risk, patient has to have sitter ordered Hypertension, stable Lisinopril 20 mg daily Norvasc 10 mg daily DVT Prophylaxis: Low risk, patient ambulating Record reviewed no change in treatment plan area awaiting case management for discharge Discharge Planning Discharge once arrangements made by case management Yaniv Simmons Dec 29, 2016 11:31
[2016-12-29 20:00] VITALS: BP 150/91; PULSE 104; RESP 20; TEMP 98.7; O2SAT 100
[2016-12-30 08:00] VITALS: BP 134/83; PULSE 83; RESP 19; TEMP 97.9; O2SAT 100
[2016-12-30] MEDS: LISINOPRIL 20 MG TAB PO SCH (08:29)
--- NOTE | 2016-12-30 14:33 | HHI.PR ---
Subjective Remarks Patient seen and examined today for follow-up on DVT Walker syndrome. Patient denies any new complaints. No change in clinical status. Awaiting case management for discharge planning Objective Vitals Vital Signs Date Time Temp Pulse Resp B/P (MAP) Pulse Ox O2 Delivery O2 Flow Rate FiO2 12/30/16 08:00 97.9 83 19 134/83 (100) 100 12/29/16 20:00 98.7 104 20 150/91 (110) 100 I/O 12/29/16 12/29/16 12/29/16 12/30/16 12/30/16 12/30/16 07:00 15:00 23:00 07:00 15:00 23:00 Intake Total 240 ml 1770 ml 60 ml Balance 240 ml 1770 ml 60 ml Intake Oral 240 ml 1770 ml 60 ml # Voids 1 3 2 # Bowel Movements 0 1 0 Objective Remarks GENERAL: Well-developed, well-nourished, in no acute distress. alert HEENT: Head is normocephalic without any lesions or masses noted. Facial features are symmetric. Eyes: Extraocular muscles are intact. Conjunctivae were clear. NECK: Trachea midline no deviation. No JVD CARDIAC: Regular rhythm, regular rate. S1/S2 are heard. No murmurs gallops or rubs. LUNGS: Clear to auscultation bilaterally. No wheeze, rhonchi or rales. No use of accessory muscles on inspiration or expiration. ABDOMEN: Soft, nontender. Nondistended. Bowel sounds heard in all 4 quadrants. No organomegaly or masses. Negative rebound, negative guarding EXTREMITIES: No edema, pulses are equal bilaterally. No cyanosis or clubbing NEUROLOGY: Mood and affect appear appropriate. Cranial nerves II through XII grossly intact. Moving all extremities, speech is clear Procedures None. Urinary Catheter: No Vascular Central Line Catheter: No A/P Assessment and Plan Total Self Care Deficit: Case management trying to find appropriate placement. 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 Reported mental capacity of 89 year-old. Patient is a flight risk, patient has to have sitter ordered Hypertension, stable Lisinopril 20 mg daily Norvasc 10 mg daily DVT Prophylaxis: Low risk, patient ambulating Record reviewed no change in treatment plan area awaiting case management for discharge Discharge Planning Discharge once arrangements made by case management Yaniv Simmons Dec 30, 2016 14:33
[2016-12-30 20:00] VITALS: BP 131/81; PULSE 100; RESP 16; TEMP 97.7; O2SAT 99
[2016-12-31 08:00] VITALS: BP 108/76; PULSE 69; RESP 18; TEMP 97.6; O2SAT 100
[2016-12-31] MEDS: LISINOPRIL 20 MG TAB PO SCH (08:39)
--- NOTE | 2016-12-31 09:19 | HHI.PR ---
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 Denies any new problems. He is asking when he is able to go home. No change in clinical status. Awaiting case management discharge planning Objective Vitals Vital Signs Date Time Temp Pulse Resp B/P (MAP) Pulse Ox O2 Delivery O2 Flow Rate FiO2 12/31/16 08:00 97.6 69 18 108/76 (87) 100 12/30/16 20:00 97.7 100 16 131/81 (98) 99 I/O 12/30/16 12/30/16 12/30/16 12/31/16 12/31/16 12/31/16 07:00 15:00 23:00 07:00 15:00 23:00 Intake Total 60 ml 630 ml 300 ml Balance 60 ml 630 ml 300 ml Intake Oral 60 ml 630 ml 300 ml # Voids 2 2 1 # Bowel Movements 0 1 Objective Remarks GENERAL: Well-developed, well-nourished, in no acute distress. alert HEENT: Head is normocephalic without any lesions or masses noted. Facial features are symmetric. Eyes: Extraocular muscles are intact. Conjunctivae were clear. NECK: Trachea midline no deviation. No JVD CARDIAC: Regular rhythm, regular rate. S1/S2 are heard. No murmurs gallops or rubs. LUNGS: Clear to auscultation bilaterally. No wheeze, rhonchi or rales. No use of accessory muscles on inspiration or expiration. ABDOMEN: Soft, nontender. Nondistended. Bowel sounds heard in all 4 quadrants. No organomegaly or masses. Negative rebound, negative guarding EXTREMITIES: No edema, pulses are equal bilaterally. No cyanosis or clubbing NEUROLOGY: Mood and affect appear appropriate. Cranial nerves II through XII grossly intact. Moving all extremities, speech is clear Procedures None. Urinary Catheter: No Vascular Central Line Catheter: No A/P Assessment and Plan Total Self Care Deficit: Case management trying to find appropriate placement. 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 Reported mental capacity of 89 year-old. Patient is a flight risk, patient has to have sitter ordered Hypertension, stable Lisinopril 20 mg daily Norvasc 10 mg daily DVT Prophylaxis: Low risk, patient ambulating Record reviewed no change in treatment plan area awaiting case management for discharge Discharge Planning Discharge once arrangements made by case management Yaniv Simmons Dec 31, 2016 09:19
[2016-12-31 20:05] VITALS: BP 141/80; PULSE 81; RESP 18; TEMP 97.9; O2SAT 99
[2017-01-01] MEDS: LISINOPRIL 20 MG TAB PO SCH (08:49)
--- NOTE | 2017-01-01 10:16 | HHI.PR ---
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 Patient lying in bed, full. Not wanting to answer questions today. Patient was witnessed walking the halls. Objective Vitals Vital Signs Date Time Temp Pulse Resp B/P (MAP) Pulse Ox O2 Delivery O2 Flow Rate FiO2 12/31/16 20:05 97.9 81 18 141/80 (100) 99 I/O 12/31/16 12/31/16 12/31/16 01/01/17 01/01/17 01/01/17 07:00 15:00 23:00 07:00 15:00 23:00 Intake Total 300 ml 250 ml 400 ml Balance 300 ml 250 ml 400 ml Intake Oral 300 ml 250 ml 400 ml # Voids 2 1 3 1 # Bowel Movements 1 0 0 Objective Remarks GENERAL: Well-developed, well-nourished, in no acute distress. alert HEENT: Head is normocephalic without any lesions or masses noted. Facial features are symmetric. Eyes: Extraocular muscles are intact. Conjunctivae were clear. NECK: Trachea midline no deviation. No JVD CARDIAC: Regular rhythm, regular rate. S1/S2 are heard. No murmurs gallops or rubs. LUNGS: Clear to auscultation bilaterally. No wheeze, rhonchi or rales. No use of accessory muscles on inspiration or expiration. ABDOMEN: Soft, nontender. Nondistended. Bowel sounds heard in all 4 quadrants. No organomegaly or masses. Negative rebound, negative guarding EXTREMITIES: No edema, pulses are equal bilaterally. No cyanosis or clubbing NEUROLOGY: Mood and affect appear appropriate. Cranial nerves II through XII grossly intact. Moving all extremities, speech is clear Procedures None. Urinary Catheter: No Vascular Central Line Catheter: No A/P Assessment and Plan Total Self Care Deficit: Case management trying to find appropriate placement. 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 Reported mental capacity of 89 year-old. Patient is a flight risk, patient has to have sitter ordered Hypertension, stable Lisinopril 20 mg daily Norvasc 10 mg daily DVT Prophylaxis: Low risk, patient ambulating Record reviewed no change in treatment plan area awaiting case management for discharge Discharge Planning Discharge once arrangements made by case management Yaniv Simmons 16, 2017 10:16
[2017-01-01 12:00] VITALS: BP 138/70; PULSE 97; RESP 14; TEMP 97.7; O2SAT 100
[2017-01-01 20:45] VITALS: BP 117/83; PULSE 85; RESP 14; TEMP 99; O2SAT 95
[2017-01-02] MEDS: LISINOPRIL 20 MG TAB PO SCH (09:00)
--- NOTE | 2017-01-02 10:27 | HHI.PR ---
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 Patient denies any new complaints. No change in clinical status. Awaiting case management for discharge planning Objective Vitals Vital Signs Date Time Temp Pulse Resp B/P (MAP) Pulse Ox O2 Delivery O2 Flow Rate FiO2 01/01/17 20:45 99.0 85 14 117/83 (94) 95 01/01/17 12:00 97.7 97 14 138/70 (92) 100 I/O 01/01/17 01/01/17 01/01/17 01/02/17 01/02/17 01/02/17 07:00 15:00 23:00 07:00 15:00 23:00 Intake Total 1200 ml Balance 1200 ml Intake Oral 1200 ml # Voids 1 5 1 # Bowel Movements 1 Objective Remarks GENERAL: Well-developed, well-nourished, in no acute distress. alert HEENT: Head is normocephalic without any lesions or masses noted. Facial features are symmetric. Eyes: Extraocular muscles are intact. Conjunctivae were clear. NECK: Trachea midline no deviation. No JVD CARDIAC: Regular rhythm, regular rate. S1/S2 are heard. No murmurs gallops or rubs. LUNGS: Clear to auscultation bilaterally. No wheeze, rhonchi or rales. No use of accessory muscles on inspiration or expiration. ABDOMEN: Soft, nontender. Nondistended. Bowel sounds heard in all 4 quadrants. No organomegaly or masses. Negative rebound, negative guarding EXTREMITIES: No edema, pulses are equal bilaterally. No cyanosis or clubbing NEUROLOGY: Mood and affect appear appropriate. Cranial nerves II through XII grossly intact. Moving all extremities, speech is clear Procedures None. A/P Assessment and Plan Total Self Care Deficit: Case management trying to find appropriate placement. 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 Reported mental capacity of 89 year-old. Patient is a flight risk, patient has to have sitter ordered Hypertension, stable Lisinopril 20 mg daily Norvasc 10 mg daily DVT Prophylaxis: Low risk, patient ambulating awaiting case management for discharge. Record reviewed no change in treatment plan Discharge Planning Discharge once arrangements made by case management Yaniv Simmons Jan 02, 2017 10:27
[2017-01-02 17:19] VITALS: BP 150/90; PULSE 106; RESP 14; TEMP 98.8; O2SAT 99
[2017-01-02 21:25] VITALS: BP 150/90; PULSE 99; RESP 16; TEMP 98.9; O2SAT 98
[2017-01-03 08:00] VITALS: BP 113/79; PULSE 65; RESP 16; TEMP 97.1; O2SAT 98
[2017-01-03] MEDS: LISINOPRIL 20 MG TAB PO SCH (09:11)
--- NOTE | 2017-01-03 10:07 | HHI.PR ---
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 Patient denies any new complaints. No change in clinical status. Awaiting case management discharge planning. Patient does not want to be here longer Objective Vitals Vital Signs Date Time Temp Pulse Resp B/P (MAP) Pulse Ox O2 Delivery O2 Flow Rate FiO2 01/03/17 08:00 97.1 65 16 113/79 (90) 98 01/02/17 21:25 98.9 99 16 150/90 (110) 98 01/02/17 17:19 98.8 106 14 150/90 (110) 99 I/O 01/02/17 01/02/17 01/02/17 01/03/17 01/03/17 01/03/17 07:00 15:00 23:00 07:00 15:00 23:00 Intake Total 1800 ml Balance 1800 ml Intake Oral 1800 ml # Voids 1 5 3 # Bowel Movements 1 0 Objective Remarks GENERAL: Well-developed, well-nourished, in no acute distress. alert HEENT: Head is normocephalic without any lesions or masses noted. Facial features are symmetric. Eyes: Extraocular muscles are intact. Conjunctivae were clear. NECK: Trachea midline no deviation. No JVD CARDIAC: Regular rhythm, regular rate. S1/S2 are heard. No murmurs gallops or rubs. LUNGS: Clear to auscultation bilaterally. No wheeze, rhonchi or rales. No use of accessory muscles on inspiration or expiration. ABDOMEN: Soft, nontender. Nondistended. Bowel sounds heard in all 4 quadrants. No organomegaly or masses. Negative rebound, negative guarding EXTREMITIES: No edema, pulses are equal bilaterally. No cyanosis or clubbing NEUROLOGY: Mood and affect appear appropriate. Cranial nerves II through XII grossly intact. Moving all extremities, speech is clear Procedures None. Urinary Catheter: No Vascular Central Line Catheter: No A/P Assessment and Plan Total Self Care Deficit: Case management trying to find appropriate placement. 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 Reported mental capacity of 89 year-old. Patient is a flight risk, patient has to have sitter ordered Hypertension, stable Lisinopril 20 mg daily Norvasc 10 mg daily DVT Prophylaxis: Low risk, patient ambulating awaiting case management for discharge. Record reviewed no change in treatment plan Discharge Planning Discharge once arrangements made by case management Yaniv Simmons Jan 03, 2017 10:07
[2017-01-03 20:00] VITALS: BP 113/91; PULSE 99; RESP 18; TEMP 98.1; O2SAT 99
[2017-01-04 08:00] VITALS: BP 121/87; PULSE 111; RESP 20; TEMP 97.8; O2SAT 96
[2017-01-04] MEDS: LISINOPRIL 20 MG TAB PO SCH (09:41)
[2017-01-04] MEDS: SENNOSIDES 8.6 MG TAB PO PRN (09:43)
--- NOTE | 2017-01-04 10:19 | HHI.PR ---
Subjective Remarks Follow-up for placement issue. Patient with Dandy-Walker syndrome. No acute complaints. Objective Vitals Vital Signs Date Time Temp Pulse Resp B/P (MAP) Pulse Ox O2 Delivery O2 Flow Rate FiO2 01/03/17 20:00 98.1 99 18 113/91 (98) 99 I/O 01/03/17 01/03/17 01/03/17 01/04/17 01/04/17 01/04/17 07:00 15:00 23:00 07:00 15:00 23:00 Intake Total 480 ml 300 ml 240 ml Balance 480 ml 300 ml 240 ml Intake Oral 480 ml 300 ml 240 ml # Voids 3 1 2 2 # Bowel Movements 0 Objective Remarks GENERAL: Well-developed well-nourished patient in no apparent distress. CARDIOVASCULAR: Regular rate and rhythm. RESPIRATORY: No accessory muscle use. Clear to auscultation. Breath sounds equal bilaterally. GASTROINTESTINAL: Abdomen soft, non-tender, non-distended. NEUROLOGICAL: Awake and alert. Procedures None. 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 Patient was initially Youssef acted and treated by psychiatrist. 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 Reported mental capacity of 89 year-old. Patient is a flight risk, patient has to have sitter. Hypertension: Stable Lisinopril 20 mg daily Amlodipine 10 mg daily DVT Prophylaxis: Low risk, patient ambulating regularly Discharge Planning Per Herbie LOVE BRENDA is not able to meet pt needs as he is a flight risk. Pt application has been submitted to [employer] by CM. Awaiting for application to be processed to assist with placement for this pt. CM trying to reach father. Jazmín Meadows Jan 04, 2017 10:19
[2017-01-04 20:00] VITALS: BP 164/111; PULSE 123; RESP 18; TEMP 98.6; O2SAT 100
[2017-01-05 08:00] VITALS: BP 133/88; PULSE 79; RESP 20; TEMP 96.1; O2SAT 91
[2017-01-05] MEDS: LISINOPRIL 20 MG TAB PO SCH (08:33)
--- NOTE | 2017-01-05 10:07 | HHI.PR ---
Subjective Remarks Follow-up for placement issue. Patient with Dandy-Walker syndrome. No acute issues. Objective Vitals Vital Signs Date Time Temp Pulse Resp B/P (MAP) Pulse Ox O2 Delivery O2 Flow Rate FiO2 01/04/17 20:00 98.6 123 18 164/111 (128) 100 I/O 01/04/17 01/04/17 01/04/17 01/05/17 01/05/17 01/05/17 07:00 15:00 23:00 07:00 15:00 23:00 Intake Total 300 ml 720 ml 420 ml Output Total 1 ml Balance 300 ml 719 ml 420 ml Intake Oral 300 ml 720 ml 420 ml Stool Total 1 ml # Voids 2 3 2 # Bowel Movements 0 Objective Remarks GENERAL: Well-developed well-nourished patient in no apparent distress. CARDIOVASCULAR: Regular rate and rhythm. RESPIRATORY: No accessory muscle use. Clear to auscultation. Breath sounds equal bilaterally. GASTROINTESTINAL: Abdomen soft, non-tender, non-distended. NEUROLOGICAL: Awake and alert. Procedures None. 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 Patient was initially Youssef acted and treated by psychiatrist. 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 Reported mental capacity of 89 year-old. Patient is a flight risk, patient has to have sitter. Hypertension: Stable Lisinopril 20 mg daily Amlodipine 10 mg daily -BP fluctuates, monitor. DVT Prophylaxis: Low risk, patient ambulating regularly Discharge Planning Per Herbie LOVE BRENDA is not able to meet pt needs as he is a flight risk. Pt application has been submitted to [employer] by CM. Awaiting for application to be processed to assist with placement for this pt. CM trying to reach father. Jazmín Meadows Jan 05, 2017 10:07
[2017-01-05 20:00] VITALS: BP 139/85; PULSE 124; RESP 18; TEMP 96.6; O2SAT 97
[2017-01-06] MEDS: LISINOPRIL 20 MG TAB PO SCH (08:29)
--- NOTE | 2017-01-06 11:11 | HHI.PR ---
Subjective Remarks Follow-up for placement issue. No acute complaints. Objective Vitals Vital Signs Date Time Temp Pulse Resp B/P (MAP) Pulse Ox O2 Delivery O2 Flow Rate FiO2 01/05/17 20:00 96.6 124 18 139/85 (103) 97 I/O 01/05/17 01/05/17 01/05/17 01/06/17 01/06/17 01/06/17 07:00 15:00 23:00 07:00 15:00 23:00 Intake Total 420 ml 420 ml Output Total 420 ml Balance 420 ml 0 ml Intake Oral 420 ml 420 ml Output Urine Total 420 ml # Voids 2 3 # Bowel Movements 0 2 Objective Remarks GENERAL: Well-developed well-nourished patient in no apparent distress. CARDIOVASCULAR: Regular rate and rhythm. RESPIRATORY: No accessory muscle use. Clear to auscultation. Breath sounds equal bilaterally. NEUROLOGICAL: Awake and alert. Procedures None. 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 Patient was initially Youssef acted and treated by psychiatrist. 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 Reported mental capacity of 89 year-old. Patient is a flight risk, patient has to have sitter. Hypertension: Stable Lisinopril 20 mg daily Amlodipine 10 mg daily -BP fluctuates, monitor. DVT Prophylaxis: Low risk, patient ambulating regularly Discharge Planning Per CM Herbie GUTIERREZ is not able to meet pt needs as he is a flight risk. Pt application has been submitted to [employer] by CM. Awaiting for application to be processed to assist with placement for this pt. CM trying to reach father. Jazmín Meadows Jan 06, 2017 11:07
[2017-01-06 17:39] VITALS: BP 141/85; PULSE 97; RESP 15; TEMP 98.6; O2SAT 97
[2017-01-06 20:00] VITALS: BP 121/77; PULSE 69; RESP 18; TEMP 98.1; O2SAT 97
[2017-01-07 08:00] VITALS: BP 132/89; PULSE 100; RESP 20; TEMP 97.6; O2SAT 99
[2017-01-07] MEDS: LISINOPRIL 20 MG TAB PO SCH (08:57)
--- NOTE | 2017-01-07 10:00 | HHI.PR ---
Subjective Remarks Follow-up for placement issue. No acute complaints. Patient walking around the conti with sitter. Objective Vitals Vital Signs Date Time Temp Pulse Resp B/P (MAP) Pulse Ox O2 Delivery O2 Flow Rate FiO2 01/07/17 08:00 97.6 100 20 132/89 (103) 99 01/06/17 20:00 98.1 69 18 121/77 (92) 97 01/06/17 17:39 98.6 97 15 141/85 (103) 97 I/O 01/06/17 01/06/17 01/06/17 01/07/17 01/07/17 01/07/17 06:59 14:59 22:59 06:59 14:59 22:59 Intake Total 420 ml 1640 ml 400 ml Output Total 420 ml Balance 0 ml 1640 ml 400 ml Intake Oral 420 ml 1640 ml 400 ml Output Urine Total 420 ml # Voids 3 1 4 2 # Bowel Movements 2 1 0 Objective Remarks GENERAL: Well-developed well-nourished patient in no apparent distress. CARDIOVASCULAR: Tachycardic rate and regular rhythm. RESPIRATORY: No accessory muscle use. Clear to auscultation. Breath sounds equal bilaterally. NEUROLOGICAL: Awake and alert. PSYCHIATRIC: Inappropriate laughing. Procedures None. 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 Patient was initially Youssef acted and treated by psychiatrist. 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 Reported mental capacity of 89 year-old. Patient is a flight risk, patient has to have sitter. Hypertension: Stable Lisinopril 20 mg daily Amlodipine 10 mg daily DVT Prophylaxis: Low risk, patient ambulating regularly Discharge Planning Per Herbie LOVE BRENDA is not able to meet pt needs as he is a flight risk. Pt application has been submitted to [employer] by IVAN. Awaiting for application to be processed to assist with placement for this pt. CM trying to reach father. Jazmín Meadows Jan 07, 2017 10:00
[2017-01-07 21:01] VITALS: BP 143/90; PULSE 90; RESP 16; TEMP 98.6; O2SAT 99
[2017-01-08 08:00] VITALS: BP 100/64; PULSE 80; RESP 18; TEMP 96.7; O2SAT 98
[2017-01-08] MEDS: LISINOPRIL 20 MG TAB PO SCH (09:25)
--- NOTE | 2017-01-08 11:08 | HHI.PR ---
Subjective Remarks Follow-up for placement issue. No acute complaints. Objective Vitals Vital Signs Date Time Temp Pulse Resp B/P (MAP) Pulse Ox O2 Delivery O2 Flow Rate FiO2 01/08/17 08:00 96.7 80 18 100/64 (76) 98 01/08/17 04:40 01/07/17 21:01 98.6 90 16 143/90 (107) 99 I/O 01/07/17 01/07/17 01/07/17 01/08/17 01/08/17 01/08/17 07:00 15:00 23:00 07:00 15:00 23:00 Intake Total 400 ml 1800 ml Balance 400 ml 1800 ml Intake Oral 400 ml 1800 ml # Voids 2 5 3 # Bowel Movements 0 1 1 Objective Remarks GENERAL: Well-developed well-nourished patient in no apparent distress. CARDIOVASCULAR: Regular rate and rhythm. RESPIRATORY: No accessory muscle use. Clear to auscultation. Breath sounds equal bilaterally. NEUROLOGICAL: Awake and alert. PSYCHIATRIC: Normal mood and affect. Procedures None. 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 Patient was initially Youssef acted and treated by psychiatrist. 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 Reported mental capacity of 89 year-old. Patient is a flight risk, patient has to have sitter. Hypertension: Stable Lisinopril 20 mg daily Amlodipine 10 mg daily DVT Prophylaxis: Low risk, patient ambulating regularly Discharge Planning Per Herbie LOVE BRENDA is not able to meet pt needs as he is a flight risk. Pt application has been submitted to [employer] by CM. Awaiting for application to be processed to assist with placement for this pt. CM trying to reach father. Jazmín Meadows Jan 08, 2017 11:08
[2017-01-08 20:15] VITALS: BP 126/81; PULSE 85; RESP 18; TEMP 98.2; O2SAT 98
[2017-01-09 08:00] VITALS: BP 108/61; PULSE 75; RESP 20; TEMP 98.3; O2SAT 97
[2017-01-09] MEDS: LISINOPRIL 20 MG TAB PO SCH (09:26)
--- NOTE | 2017-01-09 11:35 | HHI.PR ---
Subjective Remarks Follow-up for placement. Patient with Dandy-Walker syndrome. Objective Vitals Vital Signs Date Time Temp Pulse Resp B/P (MAP) Pulse Ox O2 Delivery O2 Flow Rate FiO2 01/09/17 08:00 98.3 75 20 108/61 (77) 97 01/08/17 20:15 98.2 85 18 126/81 (96) 98 I/O 01/08/17 01/08/17 01/08/17 01/09/17 01/09/17 01/09/17 07:00 15:00 23:00 07:00 15:00 23:00 Intake Total 780 ml 520 ml Balance 780 ml 520 ml Intake Oral 780 ml 520 ml # Voids 7 1 3 # Bowel Movements 2 Objective Remarks GENERAL: Well-developed well-nourished patient in no apparent distress. CARDIOVASCULAR: Regular rhythm. RESPIRATORY: No accessory muscle use. Clear to auscultation. Breath sounds equal bilaterally. NEUROLOGICAL: Awake and alert. PSYCHIATRIC: Normal mood and affect. Procedures None. 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 Patient was initially Youssef acted and treated by psychiatrist. 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 Reported mental capacity of 89 year-old. Patient is a flight risk, patient has to have sitter. Hypertension: Stable Lisinopril 20 mg daily Amlodipine 10 mg daily DVT Prophylaxis: Low risk, patient ambulating regularly Discharge Planning Per CM Herbie GUTIERREZ is not able to meet pt needs as he is a flight risk. Pt application has been submitted to [employer] by CM. Awaiting for application to be processed to assist with placement for this pt. CM trying to reach father. Jazmín Meadows Jan 09, 2017 11:35
[2017-01-09 21:15] VITALS: BP 122/86; PULSE 90; RESP 18; TEMP 97.9; O2SAT 97
[2017-01-10 08:00] VITALS: BP 122/76; PULSE 59; RESP 16; TEMP 96.9; O2SAT 97
[2017-01-10] MEDS: LISINOPRIL 20 MG TAB PO SCH (09:04)
--- NOTE | 2017-01-10 09:38 | HHI.PR ---
Subjective Remarks Follow up for placement issue. No acute complaints. Objective Vitals Vital Signs Date Time Temp Pulse Resp B/P (MAP) Pulse Ox O2 Delivery O2 Flow Rate FiO2 01/10/17 08:00 96.9 59 16 122/76 (91) 97 01/10/17 04:03 01/09/17 21:15 97.9 90 18 122/86 (98) 97 I/O 01/09/17 01/09/17 01/09/17 01/10/17 01/10/17 01/10/17 07:00 15:00 23:00 07:00 15:00 23:00 Intake Total 600 ml 300 ml Balance 600 ml 300 ml Intake Oral 600 ml 300 ml # Voids 3 3 1 3 # Bowel Movements 1 0 Objective Remarks GENERAL: Well-developed well-nourished patient in no apparent distress. CARDIOVASCULAR: Tachycardic rate with regular rhythm. No murmur. RESPIRATORY: No accessory muscle use. Clear to auscultation. Breath sounds equal bilaterally. NEUROLOGICAL: Awake and alert. PSYCHIATRIC: Normal mood and affect. Procedures None. 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 Patient was initially Youssef acted and treated by psychiatrist. 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 Reported mental capacity of 89 year-old. Patient is a flight risk, patient has to have sitter. Hypertension: Stable Lisinopril 20 mg daily Amlodipine 10 mg daily DVT Prophylaxis: Low risk, patient ambulating regularly Discharge Planning 01/05/17: Per CM patient has been approved for assistance for placement through [employer] program. Requesting crisis consideration for faster placement by this program. Jazmín Meadows Jan 10, 2017 09:38
[2017-01-10 20:00] VITALS: BP 155/88; PULSE 102; RESP 20; TEMP 98.2; O2SAT 99
[2017-01-11 08:00] VITALS: BP 142/98; PULSE 97; RESP 20; TEMP 98.4; O2SAT 98
[2017-01-11] MEDS: LISINOPRIL 20 MG TAB PO SCH (09:00)
--- NOTE | 2017-01-11 10:11 | HHI.PR ---
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 Patient is staining the conti with sitter present. Patient denies any new complaints. No change in clinical status. Awaiting case management discharge planning Objective Vitals Vital Signs Date Time Temp Pulse Resp B/P (MAP) Pulse Ox O2 Delivery O2 Flow Rate FiO2 01/10/17 20:00 98.2 102 20 155/88 (110) 99 I/O 01/10/17 01/10/17 01/10/17 01/11/17 01/11/17 01/11/17 07:00 15:00 23:00 07:00 15:00 23:00 Intake Total 1200 ml 240 ml Balance 1200 ml 240 ml Intake Oral 1200 ml 240 ml # Voids 3 5 2 # Bowel Movements 0 3 Objective Remarks GENERAL: Well-developed, well-nourished, in no acute distress. alert HEENT: Head is normocephalic without any lesions or masses noted. Facial features are symmetric. Eyes: Extraocular muscles are intact. Conjunctivae were clear. NECK: Trachea midline no deviation. No JVD CARDIAC: Regular rhythm, regular rate. S1/S2 are heard. No murmurs gallops or rubs. LUNGS: Clear to auscultation bilaterally. No wheeze, rhonchi or rales. No use of accessory muscles on inspiration or expiration. ABDOMEN: Soft, nontender. Nondistended. Bowel sounds heard in all 4 quadrants. No organomegaly or masses. Negative rebound, negative guarding EXTREMITIES: No edema, pulses are equal bilaterally. No cyanosis or clubbing NEUROLOGY: Mood and affect appear appropriate. Cranial nerves II through XII grossly intact. Moving all extremities, speech is clear Procedures None. Urinary Catheter: No Vascular Central Line Catheter: No A/P Assessment and Plan Total Self Care Deficit: Case management trying to find appropriate placement. 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 Reported mental capacity of 89 year-old. Patient is a flight risk, patient has to have sitter ordered Hypertension, stable Lisinopril 20 mg daily Norvasc 10 mg daily DVT Prophylaxis: Low risk, patient ambulating Record reviewed no change in treatment plan , awaiting case management for discharge. Discharge Planning Discharge once arrangements made by case management Yaniv Simmons 26, 2017 10:11
[2017-01-11 20:00] VITALS: BP 131/87; PULSE 94; RESP 20; TEMP 95.5; O2SAT 99
[2017-01-12 08:00] VITALS: BP 137/77; PULSE 85; RESP 16; TEMP 96.9; O2SAT 100
[2017-01-12] MEDS: LISINOPRIL 20 MG TAB PO SCH (09:00)
--- NOTE | 2017-01-12 11:40 | HHI.PR ---
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 Patient denies any new complaints. Patient continues to walk all periodically. Awaiting case management for discharge planning Objective Vitals Vital Signs Date Time Temp Pulse Resp B/P (MAP) Pulse Ox O2 Delivery O2 Flow Rate FiO2 01/12/17 08:00 96.9 85 16 137/77 (97) 100 01/11/17 20:00 95.5 94 20 131/87 (102) 99 I/O 01/11/17 01/11/17 01/11/17 01/12/17 01/12/17 01/12/17 07:00 15:00 23:00 07:00 15:00 23:00 Intake Total 240 ml 500 ml 120 ml Balance 240 ml 500 ml 120 ml Intake Oral 240 ml 500 ml 120 ml # Voids 2 4 Objective Remarks GENERAL: Well-developed, well-nourished, in no acute distress. alert HEENT: Head is normocephalic without any lesions or masses noted. Facial features are symmetric. Eyes: Extraocular muscles are intact. Conjunctivae were clear. NECK: Trachea midline no deviation. No JVD CARDIAC: Regular rhythm, regular rate. S1/S2 are heard. No murmurs gallops or rubs. LUNGS: Clear to auscultation bilaterally. No wheeze, rhonchi or rales. No use of accessory muscles on inspiration or expiration. ABDOMEN: Soft, nontender. Nondistended. Bowel sounds heard in all 4 quadrants. No organomegaly or masses. Negative rebound, negative guarding EXTREMITIES: No edema, pulses are equal bilaterally. No cyanosis or clubbing NEUROLOGY: Mood and affect appear appropriate. Cranial nerves II through XII grossly intact. Moving all extremities, speech is clear Procedures None. Urinary Catheter: No Vascular Central Line Catheter: No A/P Assessment and Plan Total Self Care Deficit: Case management trying to find appropriate placement. 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 Reported mental capacity of 89 year-old. Patient is a flight risk, patient has to have sitter ordered Hypertension, stable Lisinopril 20 mg daily Norvasc 10 mg daily DVT Prophylaxis: Low risk, patient ambulating Record reviewed no change in treatment plan , awaiting case management for discharge. Discharge Planning Discharge once arrangements made by case management Yaniv Simmons Jan 12, 2017 11:40
[2017-01-12 20:00] VITALS: BP 147/86; PULSE 114; RESP 20; TEMP 96; O2SAT 97
[2017-01-13] MEDS: LISINOPRIL 20 MG TAB PO SCH (07:49)
[2017-01-13 08:00] VITALS: BP 103/69; PULSE 84; RESP 16; TEMP 97; O2SAT 96
--- NOTE | 2017-01-13 08:56 | HHI.PR ---
Subjective Remarks Patient seen and examined today for follow-up on a Dandy walker syndrome. Patient sitting in bed. Denies any new complaints. No change in clinical status. Objective Vitals Vital Signs Date Time Temp Pulse Resp B/P (MAP) Pulse Ox O2 Delivery O2 Flow Rate FiO2 01/13/17 08:00 97.0 84 16 103/69 (80) 96 01/12/17 20:00 96.0 114 20 147/86 (106) 97 I/O 01/12/17 01/12/17 01/12/17 01/13/17 01/13/17 01/13/17 07:00 15:00 23:00 07:00 15:00 23:00 Intake Total 120 ml 950 ml 480 ml 60 ml Balance 120 ml 950 ml 480 ml 60 ml Intake Oral 120 ml 950 ml 480 ml 60 ml # Voids 4 3 1 1 # Bowel Movements 0 0 0 Objective Remarks GENERAL: Well-developed, well-nourished, in no acute distress. alert HEENT: Head is normocephalic without any lesions or masses noted. Facial features are symmetric. Eyes: Extraocular muscles are intact. Conjunctivae were clear. NECK: Trachea midline no deviation. No JVD CARDIAC: Regular rhythm, regular rate. S1/S2 are heard. No murmurs gallops or rubs. LUNGS: Clear to auscultation bilaterally. No wheeze, rhonchi or rales. No use of accessory muscles on inspiration or expiration. ABDOMEN: Soft, nontender. Nondistended. Bowel sounds heard in all 4 quadrants. No organomegaly or masses. Negative rebound, negative guarding EXTREMITIES: No edema, pulses are equal bilaterally. No cyanosis or clubbing NEUROLOGY: Mood and affect appear appropriate. Cranial nerves II through XII grossly intact. Moving all extremities, speech is clear Procedures None. Urinary Catheter: No Vascular Central Line Catheter: No A/P Assessment and Plan Total Self Care Deficit: Case management trying to find appropriate placement. 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 Reported mental capacity of 89 year-old. Patient is a flight risk, patient has to have sitter ordered Hypertension, stable Lisinopril 20 mg daily Norvasc 10 mg daily DVT Prophylaxis: Low risk, patient ambulating Record reviewed no change in treatment plan , awaiting case management for discharge. Discharge Planning Discharge once arrangements made by case management Yaniv Simmons Jan 13, 2017 08:56
[2017-01-13 20:00] VITALS: BP 101/69; PULSE 80; RESP 16; TEMP 97.6; O2SAT 96
[2017-01-14 08:00] VITALS: BP 156/91; PULSE 103; RESP 20; TEMP 97.9; O2SAT 96
[2017-01-14] MEDS: LISINOPRIL 20 MG TAB PO SCH (09:00)
--- NOTE | 2017-01-14 11:14 | HHI.PR ---
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 Patient denies any complaints. No change in clinical status. Awaiting case management discharge planning Objective Vitals Vital Signs Date Time Temp Pulse Resp B/P (MAP) Pulse Ox O2 Delivery O2 Flow Rate FiO2 01/14/17 08:00 97.9 103 20 156/91 (112) 96 01/13/17 20:00 97.6 80 16 101/69 (80) 96 I/O 01/13/17 01/13/17 01/13/17 01/14/17 01/14/17 01/14/17 07:00 15:00 23:00 07:00 15:00 23:00 Intake Total 540 ml 960 ml Balance 540 ml 960 ml Intake Oral 540 ml 960 ml # Voids 4 2 # Bowel Movements 0 0 Objective Remarks GENERAL: Well-developed, well-nourished, in no acute distress. alert HEENT: Head is normocephalic without any lesions or masses noted. Facial features are symmetric. Eyes: Extraocular muscles are intact. Conjunctivae were clear. NECK: Trachea midline no deviation. No JVD CARDIAC: Regular rhythm, regular rate. S1/S2 are heard. No murmurs gallops or rubs. LUNGS: Clear to auscultation bilaterally. No wheeze, rhonchi or rales. No use of accessory muscles on inspiration or expiration. ABDOMEN: Soft, nontender. Nondistended. Bowel sounds heard in all 4 quadrants. No organomegaly or masses. Negative rebound, negative guarding EXTREMITIES: No edema, pulses are equal bilaterally. No cyanosis or clubbing NEUROLOGY: Mood and affect appear appropriate. Cranial nerves II through XII grossly intact. Moving all extremities, speech is clear Procedures None. Urinary Catheter: No Vascular Central Line Catheter: No A/P Assessment and Plan Total Self Care Deficit: Case management trying to find appropriate placement. 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 Reported mental capacity of 89 year-old. Patient is a flight risk, patient has to have sitter ordered Hypertension, stable Lisinopril 20 mg daily Norvasc 10 mg daily DVT Prophylaxis: Low risk, patient ambulating awaiting case management for discharge. Record reviewed no change in treatment plan , Discharge Planning Discharge once arrangements made by case management Yaniv Simmons Jan 14, 2017 11:14
[2017-01-14 20:00] VITALS: BP 126/82; PULSE 76; RESP 20; TEMP 95.3; O2SAT 98
[2017-01-15 08:00] VITALS: BP 126/90; PULSE 64; RESP 19; TEMP 97.4; O2SAT 97
--- NOTE | 2017-01-15 08:14 | HHI.PR ---
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 Patient is doing well. No complaints. Awaiting case management discharge planning. Objective Vitals Vital Signs Date Time Temp Pulse Resp B/P (MAP) Pulse Ox O2 Delivery O2 Flow Rate FiO2 01/14/17 20:00 95.3 76 20 126/82 (97) 98 I/O 01/14/17 01/14/17 01/14/17 01/15/17 01/15/17 01/15/17 07:00 15:00 23:00 07:00 15:00 23:00 Intake Total 960 ml Balance 960 ml Intake Oral 960 ml # Voids 2 3 2 1 # Bowel Movements 0 Objective Remarks GENERAL: Well-developed, well-nourished, in no acute distress. alert HEENT: Head is normocephalic without any lesions or masses noted. Facial features are symmetric. Eyes: Extraocular muscles are intact. Conjunctivae were clear. NECK: Trachea midline no deviation. No JVD CARDIAC: Regular rhythm, regular rate. S1/S2 are heard. No murmurs gallops or rubs. LUNGS: Clear to auscultation bilaterally. No wheeze, rhonchi or rales. No use of accessory muscles on inspiration or expiration. ABDOMEN: Soft, nontender. Nondistended. Bowel sounds heard in all 4 quadrants. No organomegaly or masses. Negative rebound, negative guarding EXTREMITIES: No edema, pulses are equal bilaterally. No cyanosis or clubbing NEUROLOGY: Mood and affect appear appropriate. Cranial nerves II through XII grossly intact. Moving all extremities, speech is clear Procedures None. Urinary Catheter: No Vascular Central Line Catheter: No A/P Assessment and Plan Total Self Care Deficit: Case management trying to find appropriate placement. 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 Reported mental capacity of 89 year-old. Patient is a flight risk, patient has to have sitter ordered Hypertension, stable Lisinopril 20 mg daily Norvasc 10 mg daily DVT Prophylaxis: Low risk, patient ambulating Record reviewed no change in treatment plan , awaiting case management for discharge. Discharge Planning Discharge once arrangements made by case management Yaniv Simmons Jan 15, 2017 08:14
[2017-01-15] MEDS: LISINOPRIL 20 MG TAB PO SCH (09:00)
[2017-01-15 20:22] VITALS: BP 140/85; PULSE 77; RESP 20; TEMP 97.8; O2SAT 98
[2017-01-16 08:00] VITALS: BP 107/67; PULSE 61; RESP 17; TEMP 97.7; O2SAT 95
--- NOTE | 2017-01-16 08:07 | HHI.PR ---
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 No change in clinical status. Patient denies any new complaints. Awaiting case management for discharge planning Objective Vitals Vital Signs Date Time Temp Pulse Resp B/P (MAP) Pulse Ox O2 Delivery O2 Flow Rate FiO2 01/15/17 20:22 97.8 77 20 140/85 (103) 98 I/O 01/15/17 01/15/17 01/15/17 01/16/17 01/16/17 01/16/17 07:00 15:00 23:00 07:00 15:00 23:00 Intake Total 240 ml Balance 240 ml Intake Oral 240 ml # Voids 1 2 2 Objective Remarks GENERAL: Well-developed, well-nourished, in no acute distress. alert HEENT: Head is normocephalic without any lesions or masses noted. Facial features are symmetric. Eyes: Extraocular muscles are intact. Conjunctivae were clear. NECK: Trachea midline no deviation. No JVD CARDIAC: Regular rhythm, regular rate. S1/S2 are heard. No murmurs gallops or rubs. LUNGS: Clear to auscultation bilaterally. No wheeze, rhonchi or rales. No use of accessory muscles on inspiration or expiration. ABDOMEN: Soft, nontender. Nondistended. Bowel sounds heard in all 4 quadrants. No organomegaly or masses. Negative rebound, negative guarding EXTREMITIES: No edema, pulses are equal bilaterally. No cyanosis or clubbing NEUROLOGY: Mood and affect appear appropriate. Cranial nerves II through XII grossly intact. Moving all extremities, speech is clear Procedures None. Urinary Catheter: No Vascular Central Line Catheter: No A/P Assessment and Plan Total Self Care Deficit: Case management trying to find appropriate placement. 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 Reported mental capacity of 89 year-old. Patient is a flight risk, patient has to have sitter ordered Hypertension, stable Lisinopril 20 mg daily Norvasc 10 mg daily DVT Prophylaxis: Low risk, patient ambulating awaiting case management for discharge. Record reviewed no change in treatment plan , Discharge Planning Discharge once arrangements made by case management Yaniv Simmons Jan 16, 2017 08:06
[2017-01-16] MEDS: LISINOPRIL 20 MG TAB PO SCH (08:52)
[2017-01-16 19:00] VITALS: BP 146/75; PULSE 96; RESP 18; TEMP 96.4; O2SAT 96
--- NOTE | 2017-01-17 07:47 | HHI.PR ---
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 Patient denies any new complaints. No change in clinical status. Awaiting case management for discharge planning. Objective Vitals Vital Signs Date Time Temp Pulse Resp B/P (MAP) Pulse Ox O2 Delivery O2 Flow Rate FiO2 01/16/17 19:00 96.4 96 18 146/75 (98) 96 01/16/17 08:00 97.7 61 17 107/67 (80) 95 I/O 01/16/17 01/16/17 01/16/17 01/17/17 01/17/17 01/17/17 07:00 15:00 23:00 07:00 15:00 23:00 Intake Total 480 ml 240 ml Balance 480 ml 240 ml Intake Oral 480 ml 240 ml # Voids 2 1 Objective Remarks GENERAL: Well-developed, well-nourished, in no acute distress. alert HEENT: Head is normocephalic without any lesions or masses noted. Facial features are symmetric. Eyes: Extraocular muscles are intact. Conjunctivae were clear. NECK: Trachea midline no deviation. No JVD CARDIAC: Regular rhythm, regular rate. S1/S2 are heard. No murmurs gallops or rubs. LUNGS: Clear to auscultation bilaterally. No wheeze, rhonchi or rales. No use of accessory muscles on inspiration or expiration. ABDOMEN: Soft, nontender. Nondistended. Bowel sounds heard in all 4 quadrants. No organomegaly or masses. Negative rebound, negative guarding EXTREMITIES: No edema, pulses are equal bilaterally. No cyanosis or clubbing NEUROLOGY: Mood and affect appear appropriate. Cranial nerves II through XII grossly intact. Moving all extremities, speech is clear Procedures None. Urinary Catheter: No Vascular Central Line Catheter: No A/P Assessment and Plan Total Self Care Deficit: Case management trying to find appropriate placement. 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 Reported mental capacity of 89 year-old. Patient is a flight risk, patient has to have sitter ordered Hypertension, stable Lisinopril 20 mg daily Norvasc 10 mg daily DVT Prophylaxis: Low risk, patient ambulating Record reviewed no change in treatment plan , awaiting case management for discharge. Discharge Planning Discharge once arrangements made by case management Yaniv Simmons Jan 17, 2017 07:46
[2017-01-17 07:49] VITALS: BP 121/79; PULSE 55; RESP 16; TEMP 97.4; O2SAT 98
[2017-01-17] MEDS: LISINOPRIL 20 MG TAB PO SCH (08:54)
[2017-01-17 11:32] VITALS: BP 146/63; PULSE 61; RESP 18; TEMP 97.6; O2SAT 98
[2017-01-17 20:00] VITALS: BP 112/68; PULSE 60; RESP 20; TEMP 97.3; O2SAT 98
[2017-01-18 08:00] VITALS: BP 111/75; PULSE 78; RESP 20; TEMP 98.4; O2SAT 98
[2017-01-18] MEDS: LISINOPRIL 20 MG TAB PO SCH (08:21)
--- NOTE | 2017-01-18 09:10 | HHI.PR ---
Subjective Remarks Follow-up for placement issue. Patient with Dandy-Walker syndrome. No acute complaints. Objective Vitals Vital Signs Date Time Temp Pulse Resp B/P (MAP) Pulse Ox O2 Delivery O2 Flow Rate FiO2 01/18/17 08:00 98.4 78 20 111/75 (87) 98 01/17/17 20:00 97.3 60 20 112/68 (83) 98 I/O 01/17/17 01/17/17 01/17/17 01/18/17 01/18/17 01/18/17 07:00 15:00 23:00 07:00 15:00 23:00 Intake Total 240 ml 480 ml 60 ml Balance 240 ml 480 ml 60 ml Intake Oral 240 ml 480 ml 60 ml # Voids 1 3 1 # Bowel Movements 0 Objective Remarks GENERAL: Well-developed well-nourished patient in no apparent distress eating breakfast. CARDIOVASCULAR: Regular rate and rhythm. RESPIRATORY: No accessory muscle use. Clear to auscultation. Breath sounds equal bilaterally. GASTROINTESTINAL: Abdomen soft, non-tender, non-distended. NEUROLOGICAL: Awake and alert. PSYCHIATRIC: Normal mood and affect. Procedures None. 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 Patient was initially Youssef acted and treated by psychiatrist. 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 Reported mental capacity of 89 year-old. Patient is a flight risk, patient has to have sitter. Hypertension: Stable Lisinopril 20 mg daily Amlodipine 10 mg daily DVT Prophylaxis: Low risk, patient ambulating regularly Discharge Planning 01/05/17: Per CM patient has been approved for assistance for placement through [facility] program. Requesting crisis consideration for faster placement by this program. Jazmín Meadows Jan 18, 2017 09:10
[2017-01-18] MEDS: SENNOSIDES 8.6 MG TAB PO PRN (19:41)
[2017-01-18 20:00] VITALS: BP 137/97; PULSE 96; RESP 20; TEMP 98; O2SAT 97
[2017-01-19] MEDS: LISINOPRIL 20 MG TAB PO SCH (07:44)
[2017-01-19 08:00] VITALS: BP 143/90; PULSE 87; RESP 20; TEMP 97; O2SAT 96
--- NOTE | 2017-01-19 08:59 | HHI.PR ---
Subjective Remarks Follow-up for placement issue. Patient with Dandy-Walker syndrome. Objective Vitals Vital Signs Date Time Temp Pulse Resp B/P (MAP) Pulse Ox O2 Delivery O2 Flow Rate FiO2 01/18/17 20:00 98.0 96 20 137/97 (110) 97 I/O 01/18/17 01/18/17 01/18/17 01/19/17 01/19/17 01/19/17 07:00 15:00 23:00 07:00 15:00 23:00 Intake Total 60 ml 480 ml 60 ml Balance 60 ml 480 ml 60 ml Intake Oral 60 ml 480 ml 60 ml # Voids 1 3 2 # Bowel Movements 0 0 Objective Remarks GENERAL: Well-developed well-nourished patient in no apparent distress. CARDIOVASCULAR: Regular rate and rhythm. RESPIRATORY: No accessory muscle use. Clear to auscultation. Breath sounds equal bilaterally. NEUROLOGICAL: Awake and alert. PSYCHIATRIC: Normal mood and affect. Procedures None. 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 Patient was initially Youssef acted and treated by psychiatrist. 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 Reported mental capacity of 89 year-old. Patient is a flight risk, patient has to have sitter. Hypertension: Stable Lisinopril 20 mg daily Amlodipine 10 mg daily 01/19: Mildly elevated this morning. Continue to monitor. DVT Prophylaxis: Low risk, patient ambulating regularly Discharge Planning 01/05/17: Per patient has been approved for assistance for placement through [facility] program. Requesting crisis consideration for faster placement by this program. 01/19/17: Per an [employer] banking representative was scheduled to come and do an assessment to assist with placing patient. CM is awaiting assessment for further direction on placement. Jazmín Meadows Jan 19, 2017 08:59
[2017-01-19 20:00] VITALS: BP 124/74; PULSE 77; RESP 18; TEMP 97.8; O2SAT 99
[2017-01-20 08:00] VITALS: BP 133/71; PULSE 72; RESP 20; TEMP 96.9; O2SAT 99
--- NOTE | 2017-01-20 09:00 | HHI.PR ---
Subjective Remarks Follow up for placement issue. No acute complaints. Objective Vitals Vital Signs Date Time Temp Pulse Resp B/P (MAP) Pulse Ox O2 Delivery O2 Flow Rate FiO2 01/19/17 20:00 97.8 77 18 124/74 (91) 99 I/O 01/19/17 01/19/17 01/19/17 01/20/17 01/20/17 01/20/17 06:59 14:59 22:59 06:59 14:59 22:59 Intake Total 60 ml 900 ml Balance 60 ml 900 ml Intake Oral 60 ml 900 ml # Voids 2 4 # Bowel Movements 0 0 Objective Remarks GENERAL: Well-developed well-nourished patient in no apparent distress. CARDIOVASCULAR: Regular rate and rhythm. RESPIRATORY: No accessory muscle use. Clear to auscultation. Breath sounds equal bilaterally. NEUROLOGICAL: Awake and alert. PSYCHIATRIC: Normal mood and affect. Procedures None. 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 Patient was initially Youssef acted and treated by psychiatrist. 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 Reported mental capacity of 89 year-old. Patient is a flight risk, patient has to have sitter. Hypertension: Stable Lisinopril 20 mg daily Amlodipine 10 mg daily DVT Prophylaxis: Low risk, patient ambulating regularly Discharge Planning 01/05/17: Per CM patient has been approved for assistance for placement through [facility] program. Requesting crisis consideration for faster placement by this program. 01/19/17: Per an [employer] representative personal service was scheduled to come and do an assessment to assist with placing patient. CM is awaiting assessment for further direction on placement. Jazmín Meadows Jan 20, 2017 09:00
[2017-01-20] MEDS: LISINOPRIL 20 MG TAB PO SCH (09:01)
[2017-01-20 20:00] VITALS: BP 120/76; PULSE 76; RESP 20; TEMP 98.1; O2SAT 97
[2017-01-21 08:00] VITALS: BP 117/70; PULSE 95; RESP 20; TEMP 97; O2SAT 94
[2017-01-21] MEDS: LISINOPRIL 20 MG TAB PO SCH (08:34)
--- NOTE | 2017-01-21 11:20 | HHI.PR ---
Subjective Remarks Follow up for placement issue. No acute complaints. Objective Vitals Vital Signs Date Time Temp Pulse Resp B/P (MAP) Pulse Ox O2 Delivery O2 Flow Rate FiO2 01/21/17 08:00 97.0 95 20 117/70 (86) 94 01/20/17 20:00 98.1 76 20 120/76 (91) 97 I/O 01/20/17 01/20/17 01/20/17 01/21/17 01/21/17 01/21/17 07:00 15:00 23:00 07:00 15:00 23:00 Intake Total 100 ml 120 ml Balance 100 ml 120 ml Intake Oral 100 ml 120 ml # Voids 3 # Bowel Movements 0 Objective Remarks GENERAL: Well-developed well-nourished patient in no apparent distress. CARDIOVASCULAR: Heart rate fluctuates; regular rhythm. RESPIRATORY: No accessory muscle use. Clear to auscultation. Breath sounds equal bilaterally. NEUROLOGICAL: Awake and alert. PSYCHIATRIC: Normal mood and affect. Procedures None. 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 Patient was initially Youssef acted and treated by psychiatrist. 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 Reported mental capacity of 89 year-old. Patient is a flight risk, patient has to have sitter. Hypertension: Stable Lisinopril 20 mg daily Amlodipine 10 mg daily DVT Prophylaxis: Low risk, patient ambulating regularly Discharge Planning 01/05/17: Per CM patient has been approved for assistance for placement through [facility] program. Requesting crisis consideration for faster placement by this program. 01/19/17: Per CM an [employer] office machines sales representative was scheduled to come and do an assessment to assist with placing patient. CM is awaiting assessment for further direction on placement. Jazmín Meadows Jan 21, 2017 11:20
[2017-01-21 20:00] VITALS: BP 121/81; PULSE 66; RESP 20; TEMP 97.7; O2SAT 98
[2017-01-22] MEDS: LISINOPRIL 20 MG TAB PO SCH (08:20)
[2017-01-22 09:01] VITALS: BP 134/80; PULSE 74; RESP 16; TEMP 98; O2SAT 98
--- NOTE | 2017-01-22 10:51 | HHI.PR ---
Subjective Remarks Follow-up for placement issue. Patient with Dandy Walker syndrome. No acute complaints. Objective Vitals Vital Signs Date Time Temp Pulse Resp B/P (MAP) Pulse Ox O2 Delivery O2 Flow Rate FiO2 01/22/17 09:01 98.0 74 16 134/80 (98) 98 01/21/17 20:00 97.7 66 20 121/81 (94) 98 I/O 01/21/17 01/21/17 01/21/17 01/22/17 01/22/17 01/22/17 06:59 14:59 22:59 06:59 14:59 22:59 Intake Total 120 ml 480 ml Balance 120 ml 480 ml Intake Oral 120 ml 480 ml # Voids 3 2 1 # Bowel Movements 0 Objective Remarks GENERAL: Well-developed well-nourished patient in no apparent distress. CARDIOVASCULAR: Tachycardic rate with regular rhythm. RESPIRATORY: No accessory muscle use. Clear to auscultation. Breath sounds equal bilaterally. GASTROINTESTINAL: Abdomen soft, non-tender, non-distended. NEUROLOGICAL: Awake and alert. PSYCHIATRIC: Normal mood and affect. Procedures None. 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 Patient was initially Youssef acted and treated by psychiatrist. 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 Reported mental capacity of 89 year-old. Patient is a flight risk, patient has to have sitter. Hypertension: Stable Lisinopril 20 mg daily Amlodipine 10 mg daily DVT Prophylaxis: Low risk, patient ambulating regularly Discharge Planning 01/05/17: Per CM patient has been approved for assistance for placement through [facility] program. Requesting crisis consideration for faster placement by this program. 01/19/17: Per an [employer] business process representative was scheduled to come and do an assessment to assist with placing patient. CM is awaiting assessment for further direction on placement. Jazmín Meadows Jan 22, 2017 10:51
[2017-01-22 20:00] VITALS: BP 139/89; PULSE 65; RESP 20; TEMP 97.8; O2SAT 98
[2017-01-23 08:00] VITALS: BP 120/77; PULSE 59; RESP 16; TEMP 97.6; O2SAT 97
[2017-01-23] MEDS: LISINOPRIL 20 MG TAB PO SCH (08:38)
--- NOTE | 2017-01-23 13:33 | HHI.PR ---
Subjective Remarks Patient evaluated this morning. Follow-up for placement issue. No acute complaints. Objective Vitals Vital Signs Date Time Temp Pulse Resp B/P (MAP) Pulse Ox O2 Delivery O2 Flow Rate FiO2 01/23/17 08:00 97.6 59 16 120/77 (91) 97 01/22/17 20:00 97.8 65 20 139/89 (106) 98 I/O 01/22/17 01/22/17 01/22/17 01/23/17 01/23/17 01/23/17 06:59 14:59 22:59 06:59 14:59 22:59 Intake Total 240 ml Balance 240 ml Intake Oral 240 ml # Voids 1 Objective Remarks GENERAL: Well-developed well-nourished patient in no apparent distress sitting up with blanket over his head. CARDIOVASCULAR: Regular rate and rhythm. No murmur. RESPIRATORY: No accessory muscle use. Clear to auscultation. Breath sounds equal bilaterally. NEUROLOGICAL: Awake and alert. PSYCHIATRIC: Normal mood and affect. Procedures None. 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 Patient was initially Youssef acted and treated by psychiatrist. 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 Reported mental capacity of 89 year-old. Patient is a flight risk, patient has to have sitter. Hypertension: Stable Lisinopril 20 mg daily Amlodipine 10 mg daily DVT Prophylaxis: Low risk, patient ambulating regularly Discharge Planning 01/05/17: Per CM patient has been approved for assistance for placement through [facility] program. Requesting crisis consideration for faster placement by this program. 01/19/17: Per an [employer] business services representative was scheduled to come and do an assessment to assist with placing patient. CM is awaiting assessment for further direction on placement. Jazmín Meadows Jan 23, 2017 13:33
[2017-01-23 21:39] VITALS: BP 138/84; PULSE 86; RESP 18; TEMP 98.8; O2SAT 99
[2017-01-24 08:00] VITALS: BP 115/67; PULSE 66; RESP 19; TEMP 98; O2SAT 98
[2017-01-24] MEDS: LISINOPRIL 20 MG TAB PO SCH (10:16)
--- NOTE | 2017-01-24 10:46 | HHI.PR ---
Subjective Remarks Follow-up for placement issue. Patient with Dandy Walker syndrome. Objective Vitals Vital Signs Date Time Temp Pulse Resp B/P (MAP) Pulse Ox O2 Delivery O2 Flow Rate FiO2 01/24/17 08:00 98.0 66 19 115/67 (83) 98 01/23/17 21:39 98.8 86 18 138/84 (102) 99 I/O 01/23/17 01/23/17 01/23/17 01/24/17 01/24/17 01/24/17 07:00 15:00 23:00 07:00 15:00 23:00 Intake Total 240 ml 1656 ml Balance 240 ml 1656 ml Intake Oral 240 ml 1656 ml # Voids 1 5 4 # Bowel Movements 0 1 Objective Remarks GENERAL: Well-developed well-nourished patient in no apparent distress sitting up eyes closed with blanket over his head. CARDIOVASCULAR: Regular rate and rhythm. RESPIRATORY: No accessory muscle use. Clear to auscultation. Breath sounds equal bilaterally. NEUROLOGICAL: Awake and alert. Procedures None. 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 Patient was initially Youssef acted and treated by psychiatrist. 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 Reported mental capacity of 89 year-old. Patient is a flight risk, patient has to have sitter. Hypertension: Stable Lisinopril 20 mg daily Amlodipine 10 mg daily DVT Prophylaxis: Low risk, patient ambulating regularly Discharge Planning 01/05/17: Per patient has been approved for assistance for placement through [facility] program. Requesting crisis consideration for faster placement by this program. 01/19/17: Per an [employer] enrollment representative was scheduled to come and do an assessment to assist with placing patient. CM is awaiting assessment for further direction on placement. Jazmín Meadows Jan 24, 2017 10:46
[2017-01-24 20:00] VITALS: BP 120/80; PULSE 66; RESP 16; TEMP 98.6; O2SAT 100
[2017-01-25] MEDS: LISINOPRIL 20 MG TAB PO SCH (07:58)
[2017-01-25 08:00] VITALS: BP 128/80; PULSE 92; RESP 18; TEMP 98.1; O2SAT 96
--- NOTE | 2017-01-25 08:32 | HHI.PR ---
Subjective Remarks Patient examined today for follow-up on Dandy-Walker syndrome. Patient denies any complaints. No change in clinical status. Awaiting vocational case manager discharge planning. Objective Vitals Vital Signs Date Time Temp Pulse Resp B/P (MAP) Pulse Ox O2 Delivery O2 Flow Rate FiO2 01/25/17 08:00 98.1 92 18 128/80 (96) 96 01/24/17 20:00 98.6 66 16 120/80 (93) 100 I/O 01/24/17 01/24/17 01/24/17 01/25/17 01/25/17 01/25/17 07:00 15:00 23:00 07:00 15:00 23:00 Intake Total 100 ml Balance 100 ml Intake Oral 100 ml # Voids 4 1 # Bowel Movements 1 Objective Remarks GENERAL: Well-developed, well-nourished, in no acute distress. alert HEENT: Head is normocephalic without any lesions or masses noted. Facial features are symmetric. Eyes: Extraocular muscles are intact. Conjunctivae were clear. NECK: Trachea midline no deviation. No JVD CARDIAC: Regular rhythm, regular rate. S1/S2 are heard. No murmurs gallops or rubs. LUNGS: Clear to auscultation bilaterally. No wheeze, rhonchi or rales. No use of accessory muscles on inspiration or expiration. ABDOMEN: Soft, nontender. Nondistended. Bowel sounds heard in all 4 quadrants. No organomegaly or masses. Negative rebound, negative guarding EXTREMITIES: No edema, pulses are equal bilaterally. No cyanosis or clubbing NEUROLOGY: Mood and affect appear appropriate. Cranial nerves II through XII grossly intact. Moving all extremities, speech is clear Procedures None. Urinary Catheter: No Vascular Central Line Catheter: No A/P Assessment and Plan Total Self Care Deficit: Case management trying to find appropriate placement. 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 Reported mental capacity of 89 year-old. Patient is a flight risk, patient has to have sitter ordered Hypertension, stable Lisinopril 20 mg daily Norvasc 10 mg daily DVT Prophylaxis: Low risk, patient ambulating awaiting case management for discharge. Record reviewed no change in treatment plan , Discharge Planning Discharge once arrangements made by case management Yaniv Simmons Jan 25, 2017 08:32
[2017-01-25 20:00] VITALS: BP 120/66; PULSE 63; RESP 20; TEMP 98.5; O2SAT 99
--- NOTE | 2017-01-26 07:50 | HHI.PR ---
Subjective Remarks Patient seen today in follow-up for dandy Walker syndrome. Patient resting comfortable. Denies any new complaints. No change in clinical status. Awaiting case management for discharge planning Objective Vitals Vital Signs Date Time Temp Pulse Resp B/P (MAP) Pulse Ox O2 Delivery O2 Flow Rate FiO2 01/25/17 20:00 98.5 63 20 120/66 (84) 99 01/25/17 08:00 98.1 92 18 128/80 (96) 96 I/O 01/25/17 01/25/17 01/25/17 01/26/17 01/26/17 01/26/17 07:00 15:00 23:00 07:00 15:00 23:00 Intake Total 100 ml 700 ml 220 ml Balance 100 ml 700 ml 220 ml Intake Oral 100 ml 700 ml 220 ml # Voids 1 2 # Bowel Movements 0 Objective Remarks GENERAL: Well-developed, well-nourished, in no acute distress. alert HEENT: Head is normocephalic without any lesions or masses noted. Facial features are symmetric. Eyes: Extraocular muscles are intact. Conjunctivae were clear. NECK: Trachea midline no deviation. No JVD CARDIAC: Regular rhythm, regular rate. S1/S2 are heard. No murmurs gallops or rubs. LUNGS: Clear to auscultation bilaterally. No wheeze, rhonchi or rales. No use of accessory muscles on inspiration or expiration. ABDOMEN: Soft, nontender. Nondistended. Bowel sounds heard in all 4 quadrants. No organomegaly or masses. Negative rebound, negative guarding EXTREMITIES: No edema, pulses are equal bilaterally. No cyanosis or clubbing NEUROLOGY: Mood and affect appear appropriate. Cranial nerves II through XII grossly intact. Moving all extremities, speech is clear Procedures None. Urinary Catheter: No Vascular Central Line Catheter: No A/P Assessment and Plan Total Self Care Deficit: Case management trying to find appropriate placement. 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 Reported mental capacity of 89 year-old. Patient is a flight risk, patient has to have sitter ordered Hypertension, stable Lisinopril 20 mg daily Norvasc 10 mg daily DVT Prophylaxis: Low risk, patient ambulating Record reviewed, no change in treatment plan, awaiting case management for discharge. Discharge Planning Discharge once arrangements made by case management Yaniv Simmons Jan 26, 2017 07:50
[2017-01-26 08:00] VITALS: BP 143/87; PULSE 102; RESP 20; TEMP 97.7; O2SAT 97
[2017-01-26] MEDS: LISINOPRIL 20 MG TAB PO SCH (09:25)
[2017-01-26 20:00] VITALS: BP 137/88; PULSE 83; RESP 20; TEMP 96.9; O2SAT 99
--- NOTE | 2017-01-27 07:37 | HHI.PR ---
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 Patient denies any new complaints. No change in clinical status. Awaiting case management discharge planning Objective Vitals Vital Signs Date Time Temp Pulse Resp B/P (MAP) Pulse Ox O2 Delivery O2 Flow Rate FiO2 01/26/17 20:00 96.9 83 20 137/88 (104) 99 01/26/17 08:00 97.7 102 20 143/87 (105) 97 I/O 01/26/17 01/26/17 01/26/17 01/27/17 01/27/17 01/27/17 06:59 14:59 22:59 06:59 14:59 22:59 Intake Total 220 ml 900 ml Balance 220 ml 900 ml Intake Oral 220 ml 900 ml # Voids 2 3 # Bowel Movements 0 0 Objective Remarks GENERAL: Well-developed, well-nourished, in no acute distress. alert HEENT: Head is normocephalic without any lesions or masses noted. Facial features are symmetric. Eyes: Extraocular muscles are intact. Conjunctivae were clear. NECK: Trachea midline no deviation. No JVD CARDIAC: Regular rhythm, regular rate. S1/S2 are heard. No murmurs gallops or rubs. LUNGS: Clear to auscultation bilaterally. No wheeze, rhonchi or rales. No use of accessory muscles on inspiration or expiration. ABDOMEN: Soft, nontender. Nondistended. Bowel sounds heard in all 4 quadrants. No organomegaly or masses. Negative rebound, negative guarding EXTREMITIES: No edema, pulses are equal bilaterally. No cyanosis or clubbing NEUROLOGY: Mood and affect appear appropriate. Cranial nerves II through XII grossly intact. Moving all extremities, speech is clear Procedures None. Urinary Catheter: No Vascular Central Line Catheter: No A/P Assessment and Plan Total Self Care Deficit: Case management trying to find appropriate placement. 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 Reported mental capacity of 89 year-old. Patient is a flight risk, patient has to have sitter ordered Hypertension, stable Lisinopril 20 mg daily Norvasc 10 mg daily DVT Prophylaxis: Low risk, patient ambulating Record reviewed, awaiting case management for discharge. no change in treatment plan, Discharge Planning Discharge once arrangements made by case management Yaniv Simmons Jan 27, 2017 07:37
[2017-01-27 07:53] VITALS: BP 97/64; PULSE 69; RESP 18; TEMP 96.6; O2SAT 93
[2017-01-27 09:07] VITALS: BP 110/70; RESP 20; O2SAT 95
[2017-01-27] MEDS: LISINOPRIL 20 MG TAB PO SCH (09:08)
[2017-01-27 20:00] VITALS: BP 142/93; PULSE 110; RESP 18; TEMP 98.3; O2SAT 99
--- NOTE | 2017-01-28 07:40 | HHI.PR ---
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 Patient lying in bed with his head covered by a blanket. Patient denies any new complaints. No change in clinical status. Awaiting case management for discharge planning. Objective Vitals Vital Signs Date Time Temp Pulse Resp B/P (MAP) Pulse Ox O2 Delivery O2 Flow Rate FiO2 01/27/17 20:00 98.3 110 18 142/93 (109) 99 01/27/17 09:07 20 110/70 (83) 95 01/27/17 07:53 96.6 69 18 97/64 (75) 93 I/O 01/27/17 01/27/17 01/27/17 01/28/17 01/28/17 01/28/17 06:59 14:59 22:59 06:59 14:59 22:59 Intake Total 240 ml 400 ml Balance 240 ml 400 ml Intake Oral 240 ml 400 ml # Voids 2 4 # Bowel Movements 1 Objective Remarks GENERAL: Well-developed, well-nourished, in no acute distress. alert HEENT: Head is normocephalic without any lesions or masses noted. Facial features are symmetric. Eyes: Extraocular muscles are intact. Conjunctivae were clear. NECK: Trachea midline no deviation. No JVD CARDIAC: Regular rhythm, regular rate. S1/S2 are heard. No murmurs gallops or rubs. LUNGS: Clear to auscultation bilaterally. No wheeze, rhonchi or rales. No use of accessory muscles on inspiration or expiration. ABDOMEN: Soft, nontender. Nondistended. Bowel sounds heard in all 4 quadrants. No organomegaly or masses. Negative rebound, negative guarding EXTREMITIES: No edema, pulses are equal bilaterally. No cyanosis or clubbing NEUROLOGY: Mood and affect appear appropriate. Cranial nerves II through XII grossly intact. Moving all extremities, speech is clear Procedures None. Urinary Catheter: No Vascular Central Line Catheter: No A/P Assessment and Plan Total Self Care Deficit: Case management trying to find appropriate placement. 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 Reported mental capacity of 89 year-old. Patient is a flight risk, patient has to have sitter ordered Hypertension, stable Lisinopril 20 mg daily Norvasc 10 mg daily DVT Prophylaxis: Low risk, patient ambulating Record reviewed, no change in treatment plan, awaiting case management for discharge. Discharge Planning Discharge once arrangements made by case management Yaniv Simmons Jan 28, 2017 07:40
[2017-01-28 08:00] VITALS: BP 109/60; PULSE 92; O2SAT 93
[2017-01-28] MEDS: LISINOPRIL 20 MG TAB PO SCH (09:00)
[2017-01-28 20:00] VITALS: BP 127/84; PULSE 86; RESP 20; TEMP 96.1; O2SAT 97
--- NOTE | 2017-01-29 07:41 | HHI.PR ---
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 Patient asking when he is going to go home. No new complaints. No change in clinical status. Objective Vitals Vital Signs Date Time Temp Pulse Resp B/P (MAP) Pulse Ox O2 Delivery O2 Flow Rate FiO2 01/28/17 20:00 96.1 86 20 127/84 (98) 97 01/28/17 08:00 92 109/60 (76) 93 I/O 01/28/17 01/28/17 01/28/17 01/29/17 01/29/17 01/29/17 06:59 14:59 22:59 06:59 14:59 22:59 Intake Total 840 ml 400 ml 240 ml Balance 840 ml 400 ml 240 ml Intake Oral 840 ml 400 ml 240 ml # Voids 6 3 # Bowel Movements 1 Objective Remarks GENERAL: Well-developed, well-nourished, in no acute distress. alert HEENT: Head is normocephalic without any lesions or masses noted. Facial features are symmetric. Eyes: Extraocular muscles are intact. Conjunctivae were clear. NECK: Trachea midline no deviation. No JVD CARDIAC: Regular rhythm, regular rate. S1/S2 are heard. No murmurs gallops or rubs. LUNGS: Clear to auscultation bilaterally. No wheeze, rhonchi or rales. No use of accessory muscles on inspiration or expiration. ABDOMEN: Soft, nontender. Nondistended. Bowel sounds heard in all 4 quadrants. No organomegaly or masses. Negative rebound, negative guarding EXTREMITIES: No edema, pulses are equal bilaterally. No cyanosis or clubbing NEUROLOGY: Mood and affect appear appropriate. Cranial nerves II through XII grossly intact. Moving all extremities, speech is clear Procedures None. Urinary Catheter: No Vascular Central Line Catheter: No A/P Assessment and Plan Total Self Care Deficit: Case management trying to find appropriate placement. 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 Reported mental capacity of 89 year-old. Patient is a flight risk, patient has to have sitter ordered Hypertension, stable Lisinopril 20 mg daily Norvasc 10 mg daily DVT Prophylaxis: Low risk, patient ambulating Record reviewed, awaiting case management for discharge. no change in treatment plan, Discharge Planning Discharge once arrangements made by case management Yaniv Simmons Jan 29, 2017 07:41
[2017-01-29] MEDS: LISINOPRIL 20 MG TAB PO SCH (08:41)
[2017-01-29 10:00] VITALS: BP 134/81; PULSE 103; RESP 18; TEMP 97.4; O2SAT 96
[2017-01-29 20:00] VITALS: BP 127/62; PULSE 69; RESP 16; TEMP 98.6; O2SAT 99
[2017-01-30] MEDS: LISINOPRIL 20 MG TAB PO SCH (08:27)
[2017-01-30 09:02] VITALS: BP 114/64; PULSE 61; RESP 16; TEMP 98.7; O2SAT 97
--- NOTE | 2017-01-30 12:12 | HHI.PR ---
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 Patient denies any complaints. No change in clinical status. 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 alert HEENT: Head is normocephalic without any lesions or masses noted. Facial features are symmetric. Eyes: Extraocular muscles are intact. Conjunctivae were clear. NECK: Trachea midline no deviation. No JVD CARDIAC: Regular rhythm, regular rate. S1/S2 are heard. No murmurs gallops or rubs. LUNGS: Clear to auscultation bilaterally. No wheeze, rhonchi or rales. No use of accessory muscles on inspiration or expiration. ABDOMEN: Soft, nontender. Nondistended. Bowel sounds heard in all 4 quadrants. No organomegaly or masses. Negative rebound, negative guarding EXTREMITIES: No edema, pulses are equal bilaterally. No cyanosis or clubbing NEUROLOGY: Mood and affect appear appropriate. Cranial nerves II through XII grossly intact. Moving all extremities, speech is clear Procedures None. Urinary Catheter: No Vascular Central Line Catheter: No A/P Assessment and Plan Total Self Care Deficit: Case management trying to find appropriate placement. 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 Reported mental capacity of 89 year-old. Patient is a flight risk, patient has to have sitter ordered Hypertension, stable Lisinopril 20 mg daily Norvasc 10 mg daily DVT Prophylaxis: Low risk, patient ambulating Record reviewed, no change in treatment plan, awaiting case management for discharge. Discharge Planning Discharge once arrangements made by case management Yaniv Simmons Jan 30, 2017 12:12
[2017-01-30 20:00] VITALS: BP 119/64; PULSE 55; RESP 16; TEMP 97.8; O2SAT 98
[2017-01-31 08:00] VITALS: BP 128/80; PULSE 80; RESP 18; TEMP 98; O2SAT 96
--- NOTE | 2017-01-31 08:28 | HHI.PR ---
Subjective Remarks Patient examined today for follow-up on Dandy-Walker syndrome. Patient denies any new complaints. No change in clinical status. Awaiting case management for discharge planning Objective Vitals Vital Signs Date Time Temp Pulse Resp B/P (MAP) Pulse Ox O2 Delivery O2 Flow Rate FiO2 01/30/17 20:00 97.8 55 16 119/64 (82) 98 01/30/17 09:02 98.7 61 16 114/64 (81) 97 I/O 01/30/17 01/30/17 01/30/17 01/31/17 01/31/17 01/31/17 07:00 15:00 23:00 07:00 15:00 23:00 Intake Total 240 ml 1500 ml 240 ml Balance 240 ml 1500 ml 240 ml Intake Oral 240 ml 1500 ml 240 ml # Voids 1 8 # Bowel Movements 1 Objective Remarks GENERAL: Well-developed, well-nourished, in no acute distress. alert HEENT: Head is normocephalic without any lesions or masses noted. Facial features are symmetric. Eyes: Extraocular muscles are intact. Conjunctivae were clear. NECK: Trachea midline no deviation. No JVD CARDIAC: Regular rhythm, regular rate. S1/S2 are heard. No murmurs gallops or rubs. LUNGS: Clear to auscultation bilaterally. No wheeze, rhonchi or rales. No use of accessory muscles on inspiration or expiration. ABDOMEN: Soft, nontender. Nondistended. Bowel sounds heard in all 4 quadrants. No organomegaly or masses. Negative rebound, negative guarding EXTREMITIES: No edema, pulses are equal bilaterally. No cyanosis or clubbing NEUROLOGY: Mood and affect appear appropriate. Cranial nerves II through XII grossly intact. Moving all extremities, speech is clear Procedures None. Urinary Catheter: No Vascular Central Line Catheter: No A/P Assessment and Plan Total Self Care Deficit: Case management trying to find appropriate placement. 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 Reported mental capacity of 89 year-old. Patient is a flight risk, patient has to have sitter ordered Hypertension, stable Lisinopril 20 mg daily Norvasc 10 mg daily DVT Prophylaxis: Low risk, patient ambulating Record reviewed, awaiting case management for discharge. no change in treatment plan, Discharge Planning Discharge once arrangements made by case management Yaniv Simmons Jan 31, 2017 08:28
[2017-01-31] MEDS: LISINOPRIL 20 MG TAB PO SCH (09:33)
[2017-01-31 20:00] VITALS: BP 121/72; PULSE 87; RESP 16; TEMP 97.8; O2SAT 98
[2017-02-01 08:00] VITALS: BP 104/57; PULSE 65; RESP 18; TEMP 97.8; O2SAT 98
[2017-02-01] MEDS: LISINOPRIL 20 MG TAB PO SCH ×2 (09:00→11:59)
--- NOTE | 2017-02-01 10:10 | HHI.PR ---
Subjective Remarks Follow-up for placement issue. No acute complaints. Objective Vitals Vital Signs Date Time Temp Pulse Resp B/P (MAP) Pulse Ox O2 Delivery O2 Flow Rate FiO2 02/01/17 08:00 97.8 65 18 104/57 (73) 98 01/31/17 20:00 97.8 87 16 121/72 (88) 98 I/O 01/31/17 01/31/17 01/31/17 02/01/17 02/01/17 02/01/17 07:00 15:00 23:00 07:00 15:00 23:00 Intake Total 240 ml 840 ml 700 ml Balance 240 ml 840 ml 700 ml Intake Oral 240 ml 840 ml Tube Feeding 600 ml Other 100 ml # Voids 5 # Bowel Movements 0 Objective Remarks GENERAL: Well-developed well-nourished patient in no apparent distress sitting up with blanket over his head. CARDIOVASCULAR: Regular rate and rhythm. RESPIRATORY: No accessory muscle use. Patient does not follow command to take deep breaths. NEUROLOGICAL: Awake and alert. Procedures None. 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 Patient was initially Youssef acted and treated by psychiatrist. 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 Reported mental capacity of 89 year-old. Patient is a flight risk, patient has to have sitter. Hypertension: Stable Lisinopril 20 mg daily Amlodipine 10 mg daily DVT Prophylaxis: Low risk, patient ambulating regularly Discharge Planning 01/31/17: CM continues to f/u with [facility] for final completion of placement process. Awaiting call back in regards to expediting this. Jazmín Meadows Feb 01, 2017 10:10
[2017-02-01] MEDS: SENNOSIDES 8.6 MG TAB PO PRN (11:58)
[2017-02-01 20:00] VITALS: BP 125/72; PULSE 62; RESP 18; TEMP 98.2; O2SAT 97
[2017-02-02 08:00] VITALS: BP 133/70; PULSE 84; RESP 16; TEMP 97.9; O2SAT 96
[2017-02-02] MEDS: LISINOPRIL 20 MG TAB PO SCH (09:05)
--- NOTE | 2017-02-02 13:25 | HHI.PR ---
Subjective Remarks Follow-up for placement issue. Patient with Dandy-Walker syndrome. No acute complaints Objective Vitals Vital Signs Date Time Temp Pulse Resp B/P (MAP) Pulse Ox O2 Delivery O2 Flow Rate FiO2 02/02/17 08:00 97.9 84 16 133/70 (91) 96 02/01/17 20:00 98.2 62 18 125/72 (89) 97 I/O 02/01/17 02/01/17 02/01/17 02/02/17 02/02/17 02/02/17 06:59 14:59 22:59 06:59 14:59 22:59 Intake Total 700 ml 600 ml 240 ml Output Total 700 ml Balance 700 ml -100 ml 240 ml Intake Oral 600 ml 240 ml Tube Feeding 600 ml Other 100 ml Output Urine Total 600 ml Stool Total 100 ml # Voids 100 # Bowel Movements 100 Objective Remarks GENERAL: Well-developed well-nourished patient in no apparent distress. CARDIOVASCULAR: Regular rate and rhythm. RESPIRATORY: No accessory muscle use. CTAB. GASTROINTESTINAL: Abdomen soft, non-tender, and non-distended. NEUROLOGICAL: Awake and alert. Procedures None. 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 Patient was initially Youssef acted and treated by psychiatrist. 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 Reported mental capacity of 89 year-old. Patient is a flight risk, patient has to have sitter. Hypertension: Stable Lisinopril 20 mg daily Amlodipine 10 mg daily DVT Prophylaxis: Low risk, patient ambulating regularly Discharge Planning 01/31/17: CM continues to f/u with [facility] for final completion of placement process. Awaiting call back in regards to expediting this. Jazmín Meadows Feb 02, 2017 13:25
[2017-02-02 20:00] VITALS: BP 129/67; PULSE 62; RESP 20; TEMP 98.3; O2SAT 99
[2017-02-03 07:50] VITALS: BP 104/75; PULSE 60; RESP 20; TEMP 96.8; O2SAT 97
[2017-02-03] MEDS: LISINOPRIL 20 MG TAB PO SCH (08:18)
--- NOTE | 2017-02-03 11:40 | HHI.PR ---
Subjective Remarks Follow-up for placement issue. No acute complaints. Objective Vitals Vital Signs Date Time Temp Pulse Resp B/P (MAP) Pulse Ox O2 Delivery O2 Flow Rate FiO2 02/03/17 07:50 96.8 60 20 104/75 (85) 97 02/02/17 20:00 98.3 62 20 129/67 (87) 99 I/O 02/02/17 02/02/17 02/02/17 02/03/17 02/03/17 02/03/17 07:00 15:00 23:00 07:00 15:00 23:00 Intake Total 240 ml 850 ml 240 ml 60 ml Balance 240 ml 850 ml 240 ml 60 ml Intake Oral 240 ml 850 ml 240 ml 60 ml # Voids 3 1 2 # Bowel Movements 0 0 Objective Remarks GENERAL: Well-developed well-nourished patient in no apparent distress sitting in bed with blanket over his head. CARDIOVASCULAR: Regular rate and rhythm. 2/6 murmur. RESPIRATORY: No accessory muscle use. CTAB. NEUROLOGICAL: Awake and alert. Procedures None. 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 Patient was initially Youssef acted and treated by psychiatrist. 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 Reported mental capacity of 89 year-old. Patient is a flight risk, patient has to have sitter. Hypertension: Stable Lisinopril 20 mg daily Amlodipine 10 mg daily DVT Prophylaxis: Low risk, patient ambulating regularly Discharge Planning 01/31/17: CM continues to f/u with [facility] for final completion of placement process. Awaiting call back in regards to expediting this. Jazmín Meadows Feb 03, 2017 11:40
[2017-02-03 20:00] VITALS: BP 120/74; PULSE 55; RESP 20; TEMP 96.9; O2SAT 98
[2017-02-04 08:00] VITALS: BP 123/72; PULSE 70; RESP 16; TEMP 97.8; O2SAT 99
[2017-02-04] MEDS: LISINOPRIL 20 MG TAB PO SCH (08:37)
--- NOTE | 2017-02-04 08:40 | HHI.PR ---
Subjective Remarks Follow-up for placement. No acute complaints. Objective Vitals Vital Signs Date Time Temp Pulse Resp B/P (MAP) Pulse Ox O2 Delivery O2 Flow Rate FiO2 02/03/17 20:00 96.9 55 20 120/74 (89) 98 I/O 02/03/17 02/03/17 02/03/17 02/04/17 02/04/17 02/04/17 07:00 15:00 23:00 07:00 15:00 23:00 Intake Total 60 ml 0 ml Balance 60 ml 0 ml Intake Oral 60 ml 0 ml # Voids 2 1 # Bowel Movements 0 0 Objective Remarks GENERAL: Well-developed well-nourished patient in no apparent distress sitting in bed with blanket over his head watching something on a phone. CARDIOVASCULAR: Regular rate and rhythm. RESPIRATORY: No accessory muscle use. CTAB. NEUROLOGICAL: Awake and alert. PSYCHIATRIC: Smiling affect; laughs when I ask him to sit forward for lung exam which he fails to do completely. Procedures None. 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 Patient was initially Youssef acted and treated by psychiatrist. 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 Reported mental capacity of 89 year-old. Patient is a flight risk, patient has to have sitter. Hypertension: Stable Lisinopril 20 mg daily Amlodipine 10 mg daily DVT Prophylaxis: Low risk, patient ambulating regularly Discharge Planning 01/31/17: CM continues to f/u with [facility] for final completion of placement process. Awaiting call back in regards to expediting this. Jazmín Meadows Feb 04, 2017 08:40
[2017-02-04 20:33] VITALS: BP 127/89; PULSE 70; RESP 18; TEMP 97.3; O2SAT 97
[2017-02-05 08:00] VITALS: BP 123/92; PULSE 88; RESP 16; TEMP 96.1; O2SAT 98
[2017-02-05] MEDS: LISINOPRIL 20 MG TAB PO SCH (09:47)
--- NOTE | 2017-02-05 12:13 | HHI.PR ---
Subjective Remarks Follow-up for placement. No acute complaints. Objective Vitals Vital Signs Date Time Temp Pulse Resp B/P (MAP) Pulse Ox O2 Delivery O2 Flow Rate FiO2 02/05/17 08:00 96.1 88 16 123/92 (102) 98 02/04/17 20:33 97.3 70 18 127/89 (102) 97 I/O 02/04/17 02/04/17 02/04/17 02/05/17 02/05/17 02/05/17 07:00 15:00 23:00 07:00 15:00 23:00 Intake Total 825 ml 564 ml Balance 825 ml 564 ml Intake Oral 825 ml 564 ml # Voids 3 4 1 # Bowel Movements 1 Objective Remarks GENERAL: Well-developed well-nourished patient in no apparent distress sitting in bed watching something on his phone. CARDIOVASCULAR: Regular rate and rhythm. RESPIRATORY: No accessory muscle use. CTAB. GASTROINTESTINAL: Abdomen soft, non-tender, non-distended. NEUROLOGICAL: Awake and alert. PSYCHIATRIC: Normal mood and affect. Procedures None. 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 Patient was initially Youssef acted and treated by psychiatrist. 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 Reported mental capacity of 89 year-old. Patient is a flight risk, patient has to have sitter. Hypertension: Stable Lisinopril 20 mg daily Amlodipine 10 mg daily DVT Prophylaxis: Low risk, patient ambulating regularly Discharge Planning 01/31/17: CM continues to f/u with [facility] for final completion of placement process. Awaiting call back in regards to expediting this. Jazmín Meadows Feb 05, 2017 12:13
[2017-02-05 20:50] VITALS: BP 129/72; PULSE 84; RESP 18; TEMP 98.4; O2SAT 99
[2017-02-06 08:00] VITALS: BP 109/56; PULSE 60; RESP 16; TEMP 97.7; O2SAT 98
[2017-02-06] MEDS: LISINOPRIL 20 MG TAB PO SCH (08:02)
--- NOTE | 2017-02-06 08:46 | HHI.PR ---
Subjective Remarks Follow-up for placement issue. Objective Vitals Vital Signs Date Time Temp Pulse Resp B/P (MAP) Pulse Ox O2 Delivery O2 Flow Rate FiO2 02/05/17 20:50 98.4 84 18 129/72 (91) 99 I/O 02/05/17 02/05/17 02/05/17 02/06/17 02/06/17 02/06/17 07:00 15:00 23:00 07:00 15:00 23:00 Intake Total 1167 ml 222 ml 720 ml Balance 1167 ml 222 ml 720 ml Intake Oral 1167 ml 222 ml 720 ml # Voids 4 3 3 2 # Bowel Movements 1 0 Objective Remarks GENERAL: Well-developed well-nourished patient in no apparent distress sitting in bed with blanket over his head. CARDIOVASCULAR: Regular rate and rhythm. RESPIRATORY: No accessory muscle use. CTAB. NEUROLOGICAL: Awake and alert. PSYCHIATRIC: Quiet, but normal mood and affect. Procedures None. 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 Patient was initially Youssef acted and treated by psychiatrist. 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 Reported mental capacity of 89 year-old. Patient is a flight risk, patient has to have sitter. Hypertension: Stable Lisinopril 20 mg daily Amlodipine 10 mg daily DVT Prophylaxis: Low risk, patient ambulating regularly Discharge Planning 01/31/17: CM continues to f/u with [facility] for final completion of placement process. Awaiting call back in regards to expediting this. Jazmín Meadows Feb 06, 2017 08:45
[2017-02-06 21:05] VITALS: BP 131/74; PULSE 68; RESP 16; TEMP 98.3; O2SAT 97
[2017-02-07] MEDS: LISINOPRIL 20 MG TAB PO SCH (08:03)
[2017-02-07 08:21] VITALS: BP 121/69; PULSE 56; RESP 18; TEMP 97.8; O2SAT 99
--- NOTE | 2017-02-07 09:38 | HHI.PR ---
Subjective Remarks Follow up for placement. Objective Vitals Vital Signs Date Time Temp Pulse Resp B/P (MAP) Pulse Ox O2 Delivery O2 Flow Rate FiO2 02/07/17 08:21 97.8 56 18 121/69 (86) 99 02/06/17 21:05 98.3 68 16 131/74 (93) 97 I/O 02/06/17 02/06/17 02/06/17 02/07/17 02/07/17 02/07/17 07:00 15:00 23:00 07:00 15:00 23:00 Intake Total 720 ml 600 ml Balance 720 ml 600 ml Intake Oral 720 ml 600 ml # Voids 2 4 # Bowel Movements 0 0 Objective Remarks GENERAL: Well-developed well-nourished patient in no apparent distress sitting in bed watching TV show on his phone. CARDIOVASCULAR: Regular rate and rhythm. RESPIRATORY: No accessory muscle use. CTAB. NEUROLOGICAL: Awake and alert. PSYCHIATRIC: Normal mood and affect. Procedures None. 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 Patient was initially Youssef acted and treated by psychiatrist. 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 Reported mental capacity of 89 year-old. Patient is a flight risk, patient has to have sitter. Hypertension: Stable Lisinopril 20 mg daily Amlodipine 10 mg daily DVT Prophylaxis: Low risk, patient ambulating regularly Discharge Planning 01/31/17: CM continues to f/u with [facility] for final completion of placement process. Awaiting call back in regards to expediting this. Jazmín Meadows Feb 07, 2017 09:38
[2017-02-07 20:00] VITALS: BP 128/68; PULSE 66; RESP 20; TEMP 98; O2SAT 95
[2017-02-08 08:00] VITALS: BP 138/85; PULSE 69; RESP 18; TEMP 98.1; O2SAT 100
[2017-02-08] MEDS: LISINOPRIL 20 MG TAB PO SCH (08:38)
--- NOTE | 2017-02-08 09:50 | HHI.PR ---
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 Patient denies any new complaints. No change in clinical status. Awaiting case management discharge planning Objective Vitals Vital Signs Date Time Temp Pulse Resp B/P (MAP) Pulse Ox O2 Delivery O2 Flow Rate FiO2 02/08/17 08:00 98.1 69 18 138/85 (102) 100 02/07/17 20:00 98.0 66 20 128/68 (88) 95 I/O 02/07/17 02/07/17 02/07/17 02/08/17 02/08/17 02/08/17 07:00 15:00 23:00 07:00 15:00 23:00 Intake Total 100 ml Balance 100 ml Intake Oral 100 ml # Voids 4 1 # Bowel Movements 0 Objective Remarks GENERAL: Well-developed, well-nourished, in no acute distress. alert HEENT: Head is normocephalic without any lesions or masses noted. Facial features are symmetric. Eyes: Extraocular muscles are intact. Conjunctivae were clear. NECK: Trachea midline no deviation. No JVD CARDIAC: Regular rhythm, regular rate. S1/S2 are heard. No murmurs gallops or rubs. LUNGS: Clear to auscultation bilaterally. No wheeze, rhonchi or rales. No use of accessory muscles on inspiration or expiration. ABDOMEN: Soft, nontender. Nondistended. Bowel sounds heard in all 4 quadrants. No organomegaly or masses. Negative rebound, negative guarding EXTREMITIES: No edema, pulses are equal bilaterally. No cyanosis or clubbing NEUROLOGY: Mood and affect appear appropriate. Cranial nerves II through XII grossly intact. Moving all extremities, speech is clear Procedures None. Urinary Catheter: No Vascular Central Line Catheter: No A/P Assessment and Plan Total Self Care Deficit: Case management trying to find appropriate placement. 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 Reported mental capacity of 89 year-old. Patient is a flight risk, patient has to have sitter ordered Hypertension, stable Lisinopril 20 mg daily Norvasc 10 mg daily DVT Prophylaxis: Low risk, patient ambulating Record reviewed, no change in treatment plan, awaiting case management for discharge. Discharge Planning Discharge once arrangements made by case management Yaniv Simmons Feb 08, 2017 09:50
[2017-02-08 20:00] VITALS: BP_SYST 114; BP_SYST 138; BP_DIAS 71; BP_DIAS 73; PULSE 65; RESP 20; TEMP 97.9; O2SAT 96
[2017-02-09 07:50] VITALS: BP 124/74; PULSE 66; RESP 20; TEMP 97.8; O2SAT 99
[2017-02-09] MEDS: LISINOPRIL 20 MG TAB PO SCH (07:58)
--- NOTE | 2017-02-09 09:53 | HHI.PR ---
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 Patient denies any new complaints. No change in clinical status. Awaiting case management for discharge planning. Objective Vitals Vital Signs Date Time Temp Pulse Resp B/P (MAP) Pulse Ox O2 Delivery O2 Flow Rate FiO2 02/09/17 07:50 97.8 66 20 124/74 (91) 99 02/08/17 20:00 97.9 65 20 138/73 (94) 96 I/O 02/08/17 02/08/17 02/08/17 02/09/17 02/09/17 02/09/17 07:00 15:00 23:00 07:00 15:00 23:00 Intake Total 100 ml 240 ml 60 ml Balance 100 ml 240 ml 60 ml Intake Oral 100 ml 240 ml 60 ml # Voids 1 1 1 # Bowel Movements 0 0 Objective Remarks GENERAL: Well-developed, well-nourished, in no acute distress. alert HEENT: Head is normocephalic without any lesions or masses noted. Facial features are symmetric. Eyes: Extraocular muscles are intact. Conjunctivae were clear. NECK: Trachea midline no deviation. No JVD CARDIAC: Regular rhythm, regular rate. S1/S2 are heard. No murmurs gallops or rubs. LUNGS: Clear to auscultation bilaterally. No wheeze, rhonchi or rales. No use of accessory muscles on inspiration or expiration. ABDOMEN: Soft, nontender. Nondistended. Bowel sounds heard in all 4 quadrants. No organomegaly or masses. Negative rebound, negative guarding EXTREMITIES: No edema, pulses are equal bilaterally. No cyanosis or clubbing NEUROLOGY: Mood and affect appear appropriate. Cranial nerves II through XII grossly intact. Moving all extremities, speech is clear Procedures None. Urinary Catheter: No Vascular Central Line Catheter: No A/P Assessment and Plan Total Self Care Deficit: Case management trying to find appropriate placement. 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 Reported mental capacity of 89 year-old. Patient is a flight risk, patient has to have sitter ordered Hypertension, stable Lisinopril 20 mg daily Norvasc 10 mg daily DVT Prophylaxis: Low risk, patient ambulating Record reviewed, awaiting case management for discharge. no change in treatment plan, Discharge Planning Discharge once arrangements made by case management Yaniv Simmons Feb 09, 2017 09:53
[2017-02-09 20:00] VITALS: BP 136/83; PULSE 81; RESP 20; TEMP 97.4; O2SAT 96
[2017-02-10 08:00] VITALS: BP 127/70; PULSE 69; RESP 16; TEMP 98.2; O2SAT 98
--- NOTE | 2017-02-10 08:23 | HHI.PR ---
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 Patient is not talking today. Patient is walking in the halls. No change in clinical status Objective Vitals Vital Signs Date Time Temp Pulse Resp B/P (MAP) Pulse Ox O2 Delivery O2 Flow Rate FiO2 02/09/17 20:00 97.4 81 20 136/83 (100) 96 I/O 02/09/17 02/09/17 02/09/17 02/10/17 02/10/17 02/10/17 07:00 15:00 23:00 07:00 15:00 23:00 Intake Total 60 ml 600 ml 60 ml Balance 60 ml 600 ml 60 ml Intake Oral 60 ml 600 ml 60 ml # Voids 1 3 2 # Bowel Movements 0 0 0 Objective Remarks GENERAL: Well-developed, well-nourished, in no acute distress. alert HEENT: Head is normocephalic without any lesions or masses noted. Facial features are symmetric. Eyes: Extraocular muscles are intact. Conjunctivae were clear. NECK: Trachea midline no deviation. No JVD CARDIAC: Regular rhythm, regular rate. S1/S2 are heard. No murmurs gallops or rubs. LUNGS: Clear to auscultation bilaterally. No wheeze, rhonchi or rales. No use of accessory muscles on inspiration or expiration. ABDOMEN: Soft, nontender. Nondistended. Bowel sounds heard in all 4 quadrants. No organomegaly or masses. Negative rebound, negative guarding EXTREMITIES: No edema, pulses are equal bilaterally. No cyanosis or clubbing NEUROLOGY: Mood and affect appear appropriate. Cranial nerves II through XII grossly intact. Moving all extremities, speech is clear Procedures None. Urinary Catheter: No Vascular Central Line Catheter: No A/P Assessment and Plan Total Self Care Deficit: Case management trying to find appropriate placement. 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 Reported mental capacity of 89 year-old. Patient is a flight risk, patient has to have sitter ordered Hypertension, stable Lisinopril 20 mg daily Norvasc 10 mg daily DVT Prophylaxis: Low risk, patient ambulating Record reviewed, no change in treatment plan, awaiting case management for discharge. Discharge Planning Discharge once arrangements made by case management Yaniv Simmons Feb 10, 2017 08:23
[2017-02-10] MEDS: LISINOPRIL 20 MG TAB PO SCH (09:31)
[2017-02-10 20:00] VITALS: BP 119/61; PULSE 60; RESP 20; TEMP 97.7; O2SAT 99
[2017-02-11 07:50] VITALS: BP 118/60; PULSE 69; RESP 20; TEMP 97.2; O2SAT 99
[2017-02-11] MEDS: LISINOPRIL 20 MG TAB PO SCH (08:04)
--- NOTE | 2017-02-11 10:56 | HHI.PR ---
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 Patient denies any new complaints. No change in clinical status. Awaiting case management for discharge planning Objective Vitals Vital Signs Date Time Temp Pulse Resp B/P (MAP) Pulse Ox O2 Delivery O2 Flow Rate FiO2 02/11/17 07:50 97.2 69 20 118/60 (79) 99 02/10/17 20:00 97.7 60 20 119/61 (80) 99 I/O 02/10/17 02/10/17 02/10/17 02/11/17 02/11/17 02/11/17 07:00 15:00 23:00 07:00 15:00 23:00 Intake Total 60 ml 960 ml 60 ml Balance 60 ml 960 ml 60 ml Intake Oral 60 ml 960 ml 60 ml # Voids 2 2 1 # Bowel Movements 0 1 0 Objective Remarks GENERAL: Well-developed, well-nourished, in no acute distress. alert HEENT: Head is normocephalic without any lesions or masses noted. Facial features are symmetric. Eyes: Extraocular muscles are intact. Conjunctivae were clear. NECK: Trachea midline no deviation. No JVD CARDIAC: Regular rhythm, regular rate. S1/S2 are heard. No murmurs gallops or rubs. LUNGS: Clear to auscultation bilaterally. No wheeze, rhonchi or rales. No use of accessory muscles on inspiration or expiration. ABDOMEN: Soft, nontender. Nondistended. Bowel sounds heard in all 4 quadrants. No organomegaly or masses. Negative rebound, negative guarding EXTREMITIES: No edema, pulses are equal bilaterally. No cyanosis or clubbing NEUROLOGY: Mood and affect appear appropriate. Cranial nerves II through XII grossly intact. Moving all extremities, speech is clear Procedures None. Urinary Catheter: No Vascular Central Line Catheter: No A/P Assessment and Plan Total Self Care Deficit: Case management trying to find appropriate placement. 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 Reported mental capacity of 89 year-old. Patient is a flight risk, patient has to have sitter ordered Hypertension, stable Lisinopril 20 mg daily Norvasc 10 mg daily DVT Prophylaxis: Low risk, patient ambulating Record reviewed, awaiting case management for discharge. no change in treatment plan, Discharge Planning Discharge once arrangements made by case management Yaniv Simmons Feb 11, 2017 10:56
[2017-02-11 20:00] VITALS: BP 125/78; PULSE 88; RESP 20; TEMP 97.3; O2SAT 98
[2017-02-12 08:00] VITALS: BP 121/63; PULSE 86; RESP 18; TEMP 98.1; O2SAT 98
--- NOTE | 2017-02-12 08:37 | HHI.PR ---
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 Patient still not talking today. He is actively walking the halls on a daily basis. No change in clinical status Objective Vitals Vital Signs Date Time Temp Pulse Resp B/P (MAP) Pulse Ox O2 Delivery O2 Flow Rate FiO2 02/11/17 20:00 97.3 88 20 125/78 (94) 98 I/O 02/11/17 02/11/17 02/11/17 02/12/17 02/12/17 02/12/17 07:00 15:00 23:00 07:00 15:00 23:00 Intake Total 60 ml 820 ml 240 ml Balance 60 ml 820 ml 240 ml Intake Oral 60 ml 820 ml 240 ml # Voids 1 5 1 # Bowel Movements 0 0 Objective Remarks GENERAL: Well-developed, well-nourished, in no acute distress. alert HEENT: Head is normocephalic without any lesions or masses noted. Facial features are symmetric. Eyes: Extraocular muscles are intact. Conjunctivae were clear. NECK: Trachea midline no deviation. No JVD CARDIAC: Regular rhythm, regular rate. S1/S2 are heard. No murmurs gallops or rubs. LUNGS: Clear to auscultation bilaterally. No wheeze, rhonchi or rales. No use of accessory muscles on inspiration or expiration. ABDOMEN: Soft, nontender. Nondistended. Bowel sounds heard in all 4 quadrants. No organomegaly or masses. Negative rebound, negative guarding EXTREMITIES: No edema, pulses are equal bilaterally. No cyanosis or clubbing NEUROLOGY: Mood and affect appear appropriate. Cranial nerves II through XII grossly intact. Moving all extremities, speech is clear Procedures None. Urinary Catheter: No Vascular Central Line Catheter: No A/P Assessment and Plan Total Self Care Deficit: Case management trying to find appropriate placement. 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 Reported mental capacity of 89 year-old. Patient is a flight risk, patient has to have sitter ordered Hypertension, stable Lisinopril 20 mg daily Norvasc 10 mg daily DVT Prophylaxis: Low risk, patient ambulating Record reviewed, no change in treatment plan, awaiting case management for discharge. Discharge Planning Discharge once arrangements made by case management Yaniv Simmons Feb 12, 2017 08:37
[2017-02-12] MEDS: LISINOPRIL 20 MG TAB PO SCH (09:19)
[2017-02-12] MEDS: SENNOSIDES 8.6 MG TAB PO PRN (18:15)
[2017-02-12 19:59] VITALS: BP 125/78; PULSE 97; RESP 16; TEMP 97.9; O2SAT 99
[2017-02-13 08:00] VITALS: BP 115/59; PULSE 57; RESP 16; TEMP 97.4; O2SAT 98
--- NOTE | 2017-02-13 09:11 | HHI.PR ---
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 Patient is talking today. Denies any new complaints. No change in clinical status. Objective Vitals Vital Signs Date Time Temp Pulse Resp B/P (MAP) Pulse Ox O2 Delivery O2 Flow Rate FiO2 02/13/17 08:00 97.4 57 16 115/59 (77) 98 02/13/17 02:59 02/12/17 19:59 97.9 97 16 125/78 (94) 99 I/O 02/12/17 02/12/17 02/12/17 02/13/17 02/13/17 02/13/17 07:00 15:00 23:00 07:00 15:00 23:00 Intake Total 240 ml 850 ml Balance 240 ml 850 ml Intake Oral 240 ml 850 ml # Voids 1 3 3 # Bowel Movements 0 1 Objective Remarks GENERAL: Well-developed, well-nourished, in no acute distress. alert HEENT: Head is normocephalic without any lesions or masses noted. Facial features are symmetric. Eyes: Extraocular muscles are intact. Conjunctivae were clear. NECK: Trachea midline no deviation. No JVD CARDIAC: Regular rhythm, regular rate. S1/S2 are heard. No murmurs gallops or rubs. LUNGS: Clear to auscultation bilaterally. No wheeze, rhonchi or rales. No use of accessory muscles on inspiration or expiration. ABDOMEN: Soft, nontender. Nondistended. Bowel sounds heard in all 4 quadrants. No organomegaly or masses. Negative rebound, negative guarding EXTREMITIES: No edema, pulses are equal bilaterally. No cyanosis or clubbing NEUROLOGY: Mood and affect appear appropriate. Cranial nerves II through XII grossly intact. Moving all extremities, speech is clear Procedures None. Urinary Catheter: No Vascular Central Line Catheter: No A/P Assessment and Plan Total Self Care Deficit: Case management trying to find appropriate placement. 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 Reported mental capacity of 89 year-old. Patient is a flight risk, patient has to have sitter ordered Hypertension, stable Lisinopril 20 mg daily Norvasc 10 mg daily DVT Prophylaxis: Low risk, patient ambulating Record reviewed, awaiting case management for discharge. no change in treatment plan, Discharge Planning Discharge once arrangements made by case management Yaniv Simmons Feb 13, 2017 09:11
[2017-02-13] MEDS: LISINOPRIL 20 MG TAB PO SCH (09:14)
[2017-02-13 21:42] VITALS: BP 135/84; PULSE 79; RESP 18; TEMP 98; O2SAT 99
[2017-02-14 08:00] VITALS: BP 122/59; PULSE 59; RESP 12; TEMP 97.9; O2SAT 97
[2017-02-14] MEDS: LISINOPRIL 20 MG TAB PO SCH (08:44)
--- NOTE | 2017-02-14 09:36 | HHI.PR ---
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 Patient is not talking today. There is no indication of any new complaints or any acute events overnight. No change in clinical status. Awaiting case management for discharge planning Objective Vitals Vital Signs Date Time Temp Pulse Resp B/P (MAP) Pulse Ox O2 Delivery O2 Flow Rate FiO2 02/13/17 21:42 98.0 79 18 135/84 (101) 99 I/O 02/13/17 02/13/17 02/13/17 02/14/17 02/14/17 02/14/17 07:00 15:00 23:00 07:00 15:00 23:00 Intake Total 775 ml 325 ml Balance 775 ml 325 ml Intake Oral 775 ml 325 ml # Voids 3 2 2 3 # Bowel Movements 1 2 1 Objective Remarks GENERAL: Well-developed, well-nourished, in no acute distress. alert HEENT: Head is normocephalic without any lesions or masses noted. Facial features are symmetric. Eyes: Extraocular muscles are intact. Conjunctivae were clear. NECK: Trachea midline no deviation. No JVD CARDIAC: Regular rhythm, regular rate. S1/S2 are heard. No murmurs gallops or rubs. LUNGS: Clear to auscultation bilaterally. No wheeze, rhonchi or rales. No use of accessory muscles on inspiration or expiration. ABDOMEN: Soft, nontender. Nondistended. Bowel sounds heard in all 4 quadrants. No organomegaly or masses. Negative rebound, negative guarding EXTREMITIES: No edema, pulses are equal bilaterally. No cyanosis or clubbing NEUROLOGY: Mood and affect appear appropriate. Cranial nerves II through XII grossly intact. Moving all extremities, Procedures None. Urinary Catheter: No Vascular Central Line Catheter: No A/P Assessment and Plan Total Self Care Deficit: Case management trying to find appropriate placement. 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 Reported mental capacity of 89 year-old. Patient is a flight risk, patient has to have sitter ordered Hypertension, stable Lisinopril 20 mg daily Norvasc 10 mg daily DVT Prophylaxis: Low risk, patient ambulating Record reviewed, no change in treatment plan, awaiting case management for discharge. Discharge Planning Discharge once arrangements made by case management Yaniv Simmons Feb 14, 2017 09:36
[2017-02-14 20:00] VITALS: BP 118/80; PULSE 83; RESP 20; TEMP 96.9; O2SAT 96
[2017-02-15 08:00] VITALS: BP 119/79; PULSE 59; RESP 18; TEMP 97.8; O2SAT 99
[2017-02-15] MEDS: LISINOPRIL 20 MG TAB PO SCH (08:37)
--- NOTE | 2017-02-15 09:52 | HHI.PR ---
Subjective Remarks Follow up Dandy-Walker syndrome. Patient seen and examined today, sitter at bedside. Spoke to bedside RN with no reports of any changes overnight. Patient is awake today, minimal engagement in conversation, speech is clear. Denies any recent fever, chills, headache, cough, shortness of breath, ab pain, n/v/d or dysuria. Eating well. Positive BM. Objective Vitals Vital Signs Date Time Temp Pulse Resp B/P (MAP) Pulse Ox O2 Delivery O2 Flow Rate FiO2 02/15/17 08:00 97.8 59 18 119/79 (92) 99 02/14/17 20:00 96.9 83 20 118/80 (93) 96 I/O 02/14/17 02/14/17 02/14/17 02/15/17 02/15/17 02/15/17 07:00 15:00 23:00 07:00 15:00 23:00 Intake Total 812 ml 240 ml Balance 812 ml 240 ml Intake Oral 812 ml 240 ml # Voids 3 2 1 # Bowel Movements 1 0 Objective Remarks GENERAL: Well-nourished, well-developed male patient lying in bed in NAD. Awake and alert. SKIN: Warm and dry. No rash. HEENT: Normocephalic. Atraumatic. Pupils equal and round. No scleral icterus. No injection or drainage. No nasal bleeding or discharge. Mucous membranes pink and moist. NECK: Supple. Trachea midline. CARDIOVASCULAR: Regular rate and rhythm. S1, S2 noted. No murmur appreciated. RESPIRATORY: No accessory muscle use. Clear to auscultation. Breath sounds equal bilaterally. GASTROINTESTINAL: Abdomen soft, non-tender, nondistended. Normoactive bowel sounds x4. No guarding noted. MUSCULOSKELETAL: No obvious deformities. Extremities without clubbing, cyanosis , or edema. NEUROLOGICAL: Awake and alert. No obvious cranial nerve deficits. Motor grossly within normal limits. 5/5 muscle strength in bilateral upper and lower extremities. Normal speech. PSYCHIATRIC: Appropriate mood and affect. Procedures None. 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 Awaiting call back from [facility] senior patient account representative. Patient was initially Youssef acted and treated by psychiatrist, Mikael act was lifted and transferred to medical service. 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 Reported mental capacity of 89 year-old. Patient is a flight risk, patient has to have sitter ordered Hypertension, stable Lisinopril 20 mg daily Norvasc 10 mg daily Continue to monitor BP trends. DVT Prophylaxis: Low risk, patient ambulating. Discharge Planning Awaiting call back from [facility] senior patient account representative. Case management assisting. Shirin Raza Feb 15, 2017 09:52
[2017-02-15 20:00] VITALS: BP 124/72; PULSE 76; RESP 20; TEMP 97.7; O2SAT 94
[2017-02-16 08:00] VITALS: BP 106/66; PULSE 59; RESP 18; TEMP 96.7; O2SAT 99
[2017-02-16] MEDS: LISINOPRIL 20 MG TAB PO SCH (08:18)
--- NOTE | 2017-02-16 13:45 | HHI.PR ---
Subjective Remarks Follow up Dandy walker syndrome. Patient seen and examined, sitting up in bed awake and alert. Sitter at bedside. Pleasant. Alert and oriented to self and place, confused regarding time. Follows commands. No change in clinical status. Speech clear. Objective Vitals Vital Signs Date Time Temp Pulse Resp B/P (MAP) Pulse Ox O2 Delivery O2 Flow Rate FiO2 02/16/17 08:00 96.7 59 18 106/66 (79) 99 02/15/17 20:00 97.7 76 20 124/72 (89) 94 I/O 02/15/17 02/15/17 02/15/17 02/16/17 02/16/17 02/16/17 07:00 15:00 23:00 07:00 15:00 23:00 Intake Total 60 ml 240 ml 360 ml Balance 60 ml 240 ml 360 ml Intake Oral 60 ml 240 ml 360 ml # Voids 1 2 2 # Bowel Movements 0 0 0 Objective Remarks GENERAL: Well-nourished, well-developed male patient lying in bed in NAD. Awake and alert. SKIN: Warm and dry. No rash. HEENT: Normocephalic. Atraumatic. Pupils equal and round. No scleral icterus. No injection or drainage. No nasal bleeding or discharge. Mucous membranes pink and moist. NECK: Supple. Trachea midline. CARDIOVASCULAR: Regular rate and rhythm. S1, S2 noted. No murmur appreciated. RESPIRATORY: No accessory muscle use. Clear to auscultation. Breath sounds equal bilaterally. GASTROINTESTINAL: Abdomen soft, non-tender, nondistended. Normoactive bowel sounds x4. No guarding noted. MUSCULOSKELETAL: No obvious deformities. Extremities without clubbing, cyanosis , or edema. NEUROLOGICAL: Awake and alert. No obvious cranial nerve deficits. Motor grossly within normal limits. 5/5 muscle strength in bilateral upper and lower extremities. Normal speech. PSYCHIATRIC: Appropriate mood and affect. Procedures None. 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 Awaiting call back from [employer] applications sales representative. Patient was initially Youssef acted and treated by psychiatrist, Mikael act was lifted and transferred to medical service. 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 Reported mental capacity of 89 year-old. Patient is a flight risk, patient has to have sitter ordered Hypertension, stable Lisinopril 20 mg daily Norvasc 10 mg daily Continue to monitor BP trends. DVT Prophylaxis: Low risk, patient ambulating. Discharge Planning Awaiting call back from [employer] applications sales representative. Case management assisting. Shirin Raza Feb 16, 2017 13:45
[2017-02-16 20:00] VITALS: BP 117/64; PULSE 92; RESP 20; TEMP 99; O2SAT 98
[2017-02-17 08:00] VITALS: BP 119/72; PULSE 72; RESP 15; TEMP 97.3; O2SAT 99
--- NOTE | 2017-02-17 08:42 | HHI.PR ---
Subjective Remarks Follow up Dandy walker syndrome. Patient sitting up in bed comfortably looking at phone. Denies any new acute complaints overnight. Pleasantly confused regarding situation and place. Sitter at bedside. Patient is eating well. Ambulating well. Spoke to bedside RN who denies any new acute complaints overnight. Objective Vitals Vital Signs Date Time Temp Pulse Resp B/P (MAP) Pulse Ox O2 Delivery O2 Flow Rate FiO2 02/16/17 20:00 99.0 92 20 117/64 (81) 98 I/O 02/16/17 02/16/17 02/16/17 02/17/17 02/17/17 02/17/17 07:00 15:00 23:00 07:00 15:00 23:00 Intake Total 360 ml 480 ml Balance 360 ml 480 ml Intake Oral 360 ml 480 ml # Voids 2 3 # Bowel Movements 0 1 Objective Remarks GENERAL: Well-nourished, well-developed male patient lying in bed in NAD. Awake and alert. Pleasantly confused. SKIN: Warm and dry. No rash. HEENT: Normocephalic. Atraumatic. Pupils equal and round. No scleral icterus. No injection or drainage. No nasal bleeding or discharge. Mucous membranes pink and moist. NECK: Supple. Trachea midline. CARDIOVASCULAR: Regular rate and rhythm. S1, S2 noted. No murmur appreciated. RESPIRATORY: No accessory muscle use. Clear to auscultation. Breath sounds equal bilaterally. GASTROINTESTINAL: Abdomen soft, non-tender, nondistended. Normoactive bowel sounds x4. No guarding noted. MUSCULOSKELETAL: No obvious deformities. Extremities without clubbing, cyanosis , or edema. NEUROLOGICAL: Awake and alert. No obvious cranial nerve deficits. Motor grossly within normal limits. 5/5 muscle strength in bilateral upper and lower extremities. Normal speech. PSYCHIATRIC: Appropriate mood and affect. Procedures None. 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 Awaiting call back from [employer] customer service representative teacher. Patient was initially Youssef acted and treated by psychiatrist, Youssef act was lifted and transferred to medical service. 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 Reported mental capacity of 89 year-old. Patient is a flight risk, patient has to have sitter ordered Hypertension, stable Lisinopril 20 mg daily Norvasc 10 mg daily Continue to monitor BP trends. DVT Prophylaxis: Low risk, patient ambulating. Medical records reviewed and no new changes to current plan. Will continue to follow clinically. CM assisting in dc needs. Discharge Planning Awaiting call back from [employer] customer service representative teacher. Case management assisting. Shirin Raza Feb 17, 2017 08:42
[2017-02-17] MEDS: LISINOPRIL 20 MG TAB PO SCH (08:45)
[2017-02-17 20:00] VITALS: BP 118/72; PULSE 85; RESP 20; TEMP 97.5; O2SAT 96
[2017-02-18 08:00] VITALS: BP 121/64; PULSE 58; RESP 16; TEMP 97; O2SAT 97
[2017-02-18] MEDS: LISINOPRIL 20 MG TAB PO SCH (09:35)
--- NOTE | 2017-02-18 12:04 | HHI.PR ---
Subjective Remarks Follow up Dandy walker syndrome. Patient seen and examined today, sitting up in bed comfortably watching a show on his phone. Alert and awake, follows commands appropriately. Denies any new acute complaints overnight. Eating well. Ambulating. Sitter at bedside. Objective Vitals Vital Signs Date Time Temp Pulse Resp B/P (MAP) Pulse Ox O2 Delivery O2 Flow Rate FiO2 02/18/17 08:00 97.0 58 16 121/64 (83) 97 02/17/17 20:00 97.5 85 20 118/72 (87) 96 I/O 02/17/17 02/17/17 02/17/17 02/18/17 02/18/17 02/18/17 07:00 15:00 23:00 07:00 15:00 23:00 Intake Total 480 ml 840 ml 60 ml Balance 480 ml 840 ml 60 ml Intake Oral 480 ml 840 ml 60 ml # Voids 3 4 2 # Bowel Movements 1 0 0 Objective Remarks GENERAL: Well-nourished, well-developed male patient lying in bed in NAD. Awake and alert. Pleasantly confused. SKIN: Warm and dry. No rash. HEENT: Normocephalic. Atraumatic. Pupils equal and round. No scleral icterus. No injection or drainage. No nasal bleeding or discharge. Mucous membranes pink and moist. NECK: Supple. Trachea midline. CARDIOVASCULAR: Regular rate and rhythm. S1, S2 noted. No murmur appreciated. RESPIRATORY: No accessory muscle use. Clear to auscultation. Breath sounds equal bilaterally. GASTROINTESTINAL: Abdomen soft, non-tender, nondistended. Normoactive bowel sounds x4. No guarding noted. MUSCULOSKELETAL: No obvious deformities. Extremities without clubbing, cyanosis , or edema. NEUROLOGICAL: Awake and alert. No obvious cranial nerve deficits. Motor grossly within normal limits. 5/5 muscle strength in bilateral upper and lower extremities. Normal speech. PSYCHIATRIC: Appropriate mood and affect. Procedures None. 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 Awaiting call back from [employer] service representative. Patient was initially Youssef acted and treated by psychiatrist, Mikael act was lifted and transferred to medical service. 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 Reported mental capacity of 89 year-old. Patient is a flight risk, patient has to have sitter ordered Hypertension, stable Lisinopril 20 mg daily Norvasc 10 mg daily Continue to monitor BP trends. DVT Prophylaxis: Low risk, patient ambulating. Medical records reviewed and no new changes to current plan. Will continue to follow clinically. CM assisting in dc needs. Discharge Planning Case management assisting. Shirin Raza Feb 18, 2017 12:04
[2017-02-18 20:00] VITALS: BP 119/66; PULSE 84; RESP 20; TEMP 97.6; O2SAT 97
[2017-02-19 07:50] VITALS: BP 118/70; PULSE 61; RESP 20; TEMP 97.7; O2SAT 97
[2017-02-19] MEDS: LISINOPRIL 20 MG TAB PO SCH (08:51)
[2017-02-19 10:18] VITALS: O2SAT 100
--- NOTE | 2017-02-19 11:19 | HHI.PR ---
Subjective Remarks Follow up Dandy walker syndrome. Patient sitting up in bed awake and alert. Sitter at bedside. Patient is pleasantly confused. No change in clinical condition. Ambulating well. Denies any new acute complaints. Objective Vitals Vital Signs Date Time Temp Pulse Resp B/P (MAP) Pulse Ox O2 Delivery O2 Flow Rate FiO2 02/19/17 10:18 100 02/19/17 07:50 97.7 61 20 118/70 (86) 97 02/18/17 20:00 97.6 84 20 119/66 (83) 97 I/O 02/18/17 02/18/17 02/18/17 02/19/17 02/19/17 02/19/17 07:00 15:00 23:00 07:00 15:00 23:00 Intake Total 60 ml 580 ml 240 ml 100 ml Balance 60 ml 580 ml 240 ml 100 ml Intake Oral 60 ml 580 ml 240 ml 100 ml # Voids 2 3 2 # Bowel Movements 0 0 Objective Remarks GENERAL: Well-nourished, well-developed male patient lying in bed in NAD. Awake and alert. Pleasantly confused. SKIN: Warm and dry. No rash. HEENT: Normocephalic. Atraumatic. Pupils equal and round. No scleral icterus. No injection or drainage. No nasal bleeding or discharge. Mucous membranes pink and moist. NECK: Supple. Trachea midline. CARDIOVASCULAR: Regular rate and rhythm. S1, S2 noted. No murmur appreciated. RESPIRATORY: No accessory muscle use. Clear to auscultation. Breath sounds equal bilaterally. GASTROINTESTINAL: Abdomen soft, non-tender, nondistended. Normoactive bowel sounds x4. No guarding noted. MUSCULOSKELETAL: No obvious deformities. Extremities without clubbing, cyanosis , or edema. NEUROLOGICAL: Awake and alert. No obvious cranial nerve deficits. Motor grossly within normal limits. 5/5 muscle strength in bilateral upper and lower extremities. Normal speech. PSYCHIATRIC: Appropriate mood and affect. Procedures None. 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 Awaiting call back from [employer] claims service representative. Patient was initially Youssef acted and treated by psychiatrist, Mikael act was lifted and transferred to medical service. 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 Reported mental capacity of 89 year-old. Patient is a flight risk, patient has to have sitter ordered Hypertension, stable Lisinopril 20 mg daily Norvasc 10 mg daily Continue to monitor BP trends. DVT Prophylaxis: Low risk, patient ambulating. Medical records reviewed and no new changes to current plan. Will continue to follow clinically. CM assisting in dc needs. Discharge Planning Case management assisting. Shirin Raza Feb 19, 2017 11:19
[2017-02-19 20:03] VITALS: BP 127/82; PULSE 86; RESP 16; TEMP 97.9; O2SAT 96
[2017-02-20 07:50] VITALS: BP 117/65; PULSE 67; RESP 20; TEMP 98.2; O2SAT 95
[2017-02-20] MEDS: LISINOPRIL 20 MG TAB PO SCH (08:23)
--- NOTE | 2017-02-20 11:11 | HHI.PR ---
Subjective Remarks Follow up Dandy walker syndrome. Patient seen and examined. No change in clinical condition. Patient awake and pleasant. Denies any acute changes. Ambulating well. Eating well. Sitter at bedside. Objective Vitals Vital Signs Date Time Temp Pulse Resp B/P (MAP) Pulse Ox O2 Delivery O2 Flow Rate FiO2 02/20/17 07:50 98.2 67 20 117/65 (82) 95 02/19/17 20:03 97.9 86 16 127/82 (97) 96 I/O 02/19/17 02/19/17 02/19/17 02/20/17 02/20/17 02/20/17 07:00 15:00 23:00 07:00 15:00 23:00 Intake Total 240 ml 100 ml 720 ml Balance 240 ml 100 ml 720 ml Intake Oral 240 ml 100 ml 720 ml # Voids 2 6 1 # Bowel Movements 1 Objective Remarks GENERAL: Well-nourished, well-developed male patient lying in bed in NAD. Awake and alert. SKIN: Warm and dry. No rash. HEENT: Normocephalic. Atraumatic. Pupils equal and round. No scleral icterus. No injection or drainage. No nasal bleeding or discharge. Mucous membranes pink and moist. NECK: Supple. Trachea midline. CARDIOVASCULAR: Regular rate and rhythm. S1, S2 noted. No murmur appreciated. RESPIRATORY: No accessory muscle use. Clear to auscultation. Breath sounds equal bilaterally. GASTROINTESTINAL: Abdomen soft, non-tender, nondistended. Normoactive bowel sounds x4. No guarding noted. MUSCULOSKELETAL: No obvious deformities. Extremities without clubbing, cyanosis , or edema. NEUROLOGICAL: Awake and alert. No obvious cranial nerve deficits. Motor grossly within normal limits. 5/5 muscle strength in bilateral upper and lower extremities. Normal speech. PSYCHIATRIC: Appropriate mood and affect. Procedures None. 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 Awaiting call back from [employer] medical office representative. Patient was initially Youssef acted and treated by psychiatrist, Youssef act was lifted and transferred to medical service. 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 Reported mental capacity of 89 year-old. Patient is a flight risk, patient has to have sitter ordered Hypertension, stable Lisinopril 20 mg daily Norvasc 10 mg daily Continue to monitor BP trends. DVT Prophylaxis: Low risk, patient ambulating. Medical records reviewed and no new changes to current plan. Will continue to follow clinically. CM assisting in dc needs. Discharge Planning Case management assisting. Shirin Raza Feb 20, 2017 11:11
[2017-02-20 20:00] VITALS: BP 118/56; PULSE 61; RESP 20; TEMP 98.3; O2SAT 98
[2017-02-21 08:00] VITALS: BP 117/83; PULSE 81; RESP 14; TEMP 98.7; O2SAT 100
[2017-02-21] MEDS: LISINOPRIL 20 MG TAB PO SCH (08:36)
--- NOTE | 2017-02-21 11:49 | HHI.PR ---
Subjective Remarks Follow up Dandy walker syndrome. Patient seen and examined, lying in bed awake and alert, sitter at bedside. Denies any new acute complaints. Denies any change in clinical condition. Eating well. Ambulating. Positive BM. Afebrile. Objective Vitals Vital Signs Date Time Temp Pulse Resp B/P (MAP) Pulse Ox O2 Delivery O2 Flow Rate FiO2 02/21/17 08:00 98.7 81 14 117/83 (94) 100 02/20/17 20:00 98.3 61 20 118/56 (76) 98 I/O 02/20/17 02/20/17 02/20/17 02/21/17 02/21/17 02/21/17 07:00 15:00 23:00 07:00 15:00 23:00 Intake Total 1800 ml 240 ml Balance 1800 ml 240 ml Intake Oral 1800 ml 240 ml # Voids 1 3 3 # Bowel Movements 0 0 Objective Remarks GENERAL: Well-nourished, well-developed male patient lying in bed in NAD. Awake and alert. SKIN: Warm and dry. No rash. HEENT: Normocephalic. Atraumatic. Pupils equal and round. No scleral icterus. No injection or drainage. No nasal bleeding or discharge. Mucous membranes pink and moist. NECK: Supple. Trachea midline. CARDIOVASCULAR: Regular rate and rhythm. S1, S2 noted. No murmur appreciated. RESPIRATORY: No accessory muscle use. Clear to auscultation. Breath sounds equal bilaterally. GASTROINTESTINAL: Abdomen soft, non-tender, nondistended. Normoactive bowel sounds x4. No guarding noted. MUSCULOSKELETAL: No obvious deformities. Extremities without clubbing, cyanosis , or edema. NEUROLOGICAL: Awake and alert. No obvious cranial nerve deficits. Motor grossly within normal limits. 5/5 muscle strength in bilateral upper and lower extremities. Normal speech. PSYCHIATRIC: Appropriate mood and affect. Procedures None. 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 Awaiting call back from [employer] account representative. Patient was initially Youssef acted and treated by psychiatrist, Youssef act was lifted and transferred to medical service. 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 Reported mental capacity of 89 year-old. Patient is a flight risk, patient has to have sitter ordered Hypertension, stable Lisinopril 20 mg daily Norvasc 10 mg daily Continue to monitor BP trends. DVT Prophylaxis: Low risk, patient ambulating. Medical records reviewed and no new changes to current plan. Will continue to follow clinically. CM assisting in dc needs. Discharge Planning Case management assisting. Shirin Raza Feb 21, 2017 11:49
[2017-02-21 20:00] VITALS: BP 107/61; PULSE 76; RESP 16; TEMP 97.7; O2SAT 98
[2017-02-22 07:50] VITALS: BP 143/76; PULSE 68; RESP 20; TEMP 98; O2SAT 99
[2017-02-22] MEDS: LISINOPRIL 20 MG TAB PO SCH (08:19)
--- NOTE | 2017-02-22 11:36 | HHI.PR ---
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 Nursing staff indicates the patient is not acting himself today. Patient denied any pain, appetite changes, changes in a bowel movement, patient appears to be the same as usual. Patient denies any new problems or complaints. Objective Vitals Vital Signs Date Time Temp Pulse Resp B/P (MAP) Pulse Ox O2 Delivery O2 Flow Rate FiO2 02/22/17 07:50 98.0 68 20 143/76 (98) 99 02/21/17 20:00 97.7 76 16 107/61 (76) 98 I/O 02/21/17 02/21/17 02/21/17 02/22/17 02/22/17 02/22/17 07:00 15:00 23:00 07:00 15:00 23:00 Intake Total 240 ml 472 ml 577 ml 60 ml Balance 240 ml 472 ml 577 ml 60 ml Intake Oral 240 ml 472 ml 577 ml 60 ml # Voids 3 3 1 # Bowel Movements 0 0 0 Objective Remarks GENERAL: Well-developed, well-nourished, in no acute distress. alert HEENT: Head is normocephalic without any lesions or masses noted. Facial features are symmetric. Eyes: Extraocular muscles are intact. Conjunctivae were clear. NECK: Trachea midline no deviation. No JVD CARDIAC: Regular rhythm, regular rate. S1/S2 are heard. No murmurs gallops or rubs. LUNGS: Clear to auscultation bilaterally. No wheeze, rhonchi or rales. No use of accessory muscles on inspiration or expiration. ABDOMEN: Soft, nontender. Nondistended. Bowel sounds heard in all 4 quadrants. No organomegaly or masses. Negative rebound, negative guarding EXTREMITIES: No edema, pulses are equal bilaterally. No cyanosis or clubbing NEUROLOGY: Mood and affect appear appropriate. Cranial nerves II through XII grossly intact. Moving all extremities, Procedures None. Urinary Catheter: No Vascular Central Line Catheter: No A/P Assessment and Plan Total Self Care Deficit: Case management trying to find appropriate placement. 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 Reported mental capacity of 89 year-old. Patient is a flight risk, patient has to have sitter ordered Hypertension, stable Lisinopril 20 mg daily Norvasc 10 mg daily DVT Prophylaxis: Low risk, patient ambulating Record reviewed, awaiting case management for discharge. no change in treatment plan, Discharge Planning Discharge once arrangements made by case management Yaniv Simmons Feb 22, 2017 11:36
[2017-02-22 20:00] VITALS: BP 106/59; PULSE 54; RESP 16; TEMP 97.1; O2SAT 96
[2017-02-23 07:50] VITALS: BP 117/60; PULSE 55; RESP 20; TEMP 97.6; O2SAT 98
[2017-02-23] MEDS: LISINOPRIL 20 MG TAB PO SCH (07:57)
--- NOTE | 2017-02-23 09:41 | HHI.PR ---
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 Patient denies any new complaints. No change in clinical status. Nursing staff does not indicate any acute events overnight Objective Vitals Vital Signs Date Time Temp Pulse Resp B/P (MAP) Pulse Ox O2 Delivery O2 Flow Rate FiO2 02/23/17 07:50 97.6 55 20 117/60 (79) 98 02/22/17 20:00 97.1 54 16 106/59 (75) 96 I/O 02/22/17 02/22/17 02/22/17 02/23/17 02/23/17 02/23/17 07:00 15:00 23:00 07:00 15:00 23:00 Intake Total 60 ml 840 ml 680 ml Balance 60 ml 840 ml 680 ml Intake Oral 60 ml 840 ml 680 ml # Voids 1 3 2 # Bowel Movements 0 0 0 Objective Remarks GENERAL: Well-developed, well-nourished, in no acute distress. alert HEENT: Head is normocephalic without any lesions or masses noted. Facial features are symmetric. Eyes: Extraocular muscles are intact. Conjunctivae were clear. NECK: Trachea midline no deviation. No JVD CARDIAC: Regular rhythm, regular rate. S1/S2 are heard. No murmurs gallops or rubs. LUNGS: Clear to auscultation bilaterally. No wheeze, rhonchi or rales. No use of accessory muscles on inspiration or expiration. ABDOMEN: Soft, nontender. Nondistended. Bowel sounds heard in all 4 quadrants. No organomegaly or masses. Negative rebound, negative guarding EXTREMITIES: No edema, pulses are equal bilaterally. No cyanosis or clubbing NEUROLOGY: Mood and affect appear appropriate. Cranial nerves II through XII grossly intact. Moving all extremities, Procedures None. Urinary Catheter: No Vascular Central Line Catheter: No A/P Assessment and Plan Total Self Care Deficit: Case management trying to find appropriate placement. 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 Reported mental capacity of 89 year-old. Patient is a flight risk, patient has to have sitter ordered Hypertension, stable Lisinopril 20 mg daily Norvasc 10 mg daily DVT Prophylaxis: Low risk, patient ambulating Record reviewed, no change in treatment plan, awaiting case management for discharge. Discharge Planning Discharge once arrangements made by case management Yaniv Simmons Feb 23, 2017 09:41
[2017-02-24] VITALS: BP 107/67; PULSE 66; RESP 20; TEMP 97.2; O2SAT 98
[2017-02-24 08:00] VITALS: BP 121/66; PULSE 58; RESP 20; TEMP 97.6; O2SAT 98
[2017-02-24] MEDS: LISINOPRIL 20 MG TAB PO SCH (09:20)
--- NOTE | 2017-02-24 09:27 | HHI.PR ---
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 Patient denies any new complaints. No change in clinical status. Objective Vitals Vital Signs Date Time Temp Pulse Resp B/P (MAP) Pulse Ox O2 Delivery O2 Flow Rate FiO2 02/24/17 08:00 97.6 58 20 121/66 (84) 98 02/24/17 00:00 97.2 66 20 107/67 (80) 98 I/O 02/23/17 02/23/17 02/23/17 02/24/17 02/24/17 02/24/17 06:59 14:59 22:59 06:59 14:59 22:59 Intake Total 680 ml 922 ml 240 ml Balance 680 ml 922 ml 240 ml Intake Oral 680 ml 922 ml 240 ml # Voids 2 4 3 # Bowel Movements 0 0 1 Objective Remarks GENERAL: Well-developed, well-nourished, in no acute distress. alert HEENT: Head is normocephalic without any lesions or masses noted. Facial features are symmetric. Eyes: Extraocular muscles are intact. Conjunctivae were clear. NECK: Trachea midline no deviation. No JVD CARDIAC: Regular rhythm, regular rate. S1/S2 are heard. No murmurs gallops or rubs. LUNGS: Clear to auscultation bilaterally. No wheeze, rhonchi or rales. No use of accessory muscles on inspiration or expiration. ABDOMEN: Soft, nontender. Nondistended. Bowel sounds heard in all 4 quadrants. No organomegaly or masses. Negative rebound, negative guarding EXTREMITIES: No edema, pulses are equal bilaterally. No cyanosis or clubbing NEUROLOGY: Mood and affect appear appropriate. Cranial nerves II through XII grossly intact. Moving all extremities, Procedures None. Urinary Catheter: No Vascular Central Line Catheter: No A/P Assessment and Plan Total Self Care Deficit: Case management trying to find appropriate placement. 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 Reported mental capacity of 89 year-old. Patient is a flight risk, patient has to have sitter ordered Hypertension, stable Lisinopril 20 mg daily Norvasc 10 mg daily DVT Prophylaxis: Low risk, patient ambulating Record reviewed, awaiting case management for discharge. no change in treatment plan, Discharge Planning Discharge once arrangements made by case management Yaniv Simmons Feb 24, 2017 09:27
[2017-02-24 20:00] VITALS: BP 125/70; PULSE 66; RESP 20; TEMP 96.9; O2SAT 96
[2017-02-25 08:00] VITALS: BP_SYST 107; BP_SYST 110; BP_DIAS 57; BP_DIAS 73; PULSE 60; RESP 17; TEMP 98.1; O2SAT 100
[2017-02-25] MEDS: LISINOPRIL 20 MG TAB PO SCH (09:31)
--- NOTE | 2017-02-25 11:27 | HHI.PR ---
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 Patient denies any new complaints. No change in clinical status. Awaiting caseworker protective services discharge planning. Objective Vitals Vital Signs Date Time Temp Pulse Resp B/P (MAP) Pulse Ox O2 Delivery O2 Flow Rate FiO2 02/25/17 08:00 98.1 60 17 107/57 (74) 100 02/24/17 20:00 96.9 66 20 125/70 (88) 96 I/O 02/24/17 02/24/17 02/24/17 02/25/17 02/25/17 02/25/17 07:00 15:00 23:00 07:00 15:00 23:00 Intake Total 240 ml 480 ml 240 ml Balance 240 ml 480 ml 240 ml Intake Oral 240 ml 480 ml 240 ml # Voids 3 4 2 # Bowel Movements 1 1 0 Objective Remarks GENERAL: Well-developed, well-nourished, in no acute distress. alert HEENT: Head is normocephalic without any lesions or masses noted. Facial features are symmetric. Eyes: Extraocular muscles are intact. Conjunctivae were clear. NECK: Trachea midline no deviation. No JVD CARDIAC: Regular rhythm, regular rate. S1/S2 are heard. No murmurs gallops or rubs. LUNGS: Clear to auscultation bilaterally. No wheeze, rhonchi or rales. No use of accessory muscles on inspiration or expiration. ABDOMEN: Soft, nontender. Nondistended. Bowel sounds heard in all 4 quadrants. No organomegaly or masses. Negative rebound, negative guarding EXTREMITIES: No edema, pulses are equal bilaterally. No cyanosis or clubbing NEUROLOGY: Mood and affect appear appropriate. Cranial nerves II through XII grossly intact. Moving all extremities, Procedures None. Urinary Catheter: No Vascular Central Line Catheter: No A/P Assessment and Plan Total Self Care Deficit: Case management trying to find appropriate placement. 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 Reported mental capacity of 89 year-old. Patient is a flight risk, patient has to have sitter ordered Hypertension, stable Lisinopril 20 mg daily Norvasc 10 mg daily DVT Prophylaxis: Low risk, patient ambulating Record reviewed, no change in treatment plan, awaiting case management for discharge. Discharge Planning Discharge once arrangements made by case management Yaniv Simmons Feb 25, 2017 11:27
[2017-02-25 20:00] VITALS: BP 141/82; PULSE 53; RESP 18; TEMP 97.6; O2SAT 95
[2017-02-26 08:00] VITALS: BP 125/72; PULSE 52; RESP 16; TEMP 98.1; O2SAT 98
--- NOTE | 2017-02-26 08:37 | HHI.PR ---
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 Patient denies any new complaints. No change in clinical status. No acute events overnight Objective Vitals Vital Signs Date Time Temp Pulse Resp B/P (MAP) Pulse Ox O2 Delivery O2 Flow Rate FiO2 02/26/17 08:00 98.1 52 16 125/72 (89) 98 02/25/17 20:00 97.6 53 18 141/82 (101) 95 I/O 02/25/17 02/25/17 02/25/17 02/26/17 02/26/17 02/26/17 07:00 15:00 23:00 07:00 15:00 23:00 Intake Total 240 ml 480 ml Balance 240 ml 480 ml Intake Oral 240 ml 480 ml # Voids 2 2 # Bowel Movements 0 0 Objective Remarks GENERAL: Well-developed, well-nourished, in no acute distress. alert HEENT: Head is normocephalic without any lesions or masses noted. Facial features are symmetric. Eyes: Extraocular muscles are intact. Conjunctivae were clear. NECK: Trachea midline no deviation. No JVD CARDIAC: Regular rhythm, regular rate. S1/S2 are heard. No murmurs gallops or rubs. LUNGS: Clear to auscultation bilaterally. No wheeze, rhonchi or rales. No use of accessory muscles on inspiration or expiration. ABDOMEN: Soft, nontender. Nondistended. Bowel sounds heard in all 4 quadrants. No organomegaly or masses. Negative rebound, negative guarding EXTREMITIES: No edema, pulses are equal bilaterally. No cyanosis or clubbing NEUROLOGY: Mood and affect appear appropriate. Cranial nerves II through XII grossly intact. Moving all extremities, Procedures None. Urinary Catheter: No Vascular Central Line Catheter: No A/P Assessment and Plan Total Self Care Deficit: Case management trying to find appropriate placement. 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 Reported mental capacity of 89 year-old. Patient is a flight risk, patient has to have sitter ordered Hypertension, stable Lisinopril 20 mg daily Norvasc 10 mg daily DVT Prophylaxis: Low risk, patient ambulating Record reviewed, awaiting case management for discharge. no change in treatment plan, Discharge Planning Discharge once arrangements made by case management Yaniv Simmons Feb 26, 2017 08:37
[2017-02-26] MEDS: LISINOPRIL 20 MG TAB PO SCH (09:02)
[2017-02-26 20:00] VITALS: BP 127/68; PULSE 78; RESP 20; TEMP 98.1; O2SAT 96
[2017-02-27 08:00] VITALS: BP 119/64; PULSE 60; RESP 16; TEMP 98.3; O2SAT 99
[2017-02-27] MEDS: LISINOPRIL 20 MG TAB PO SCH (09:25)
--- NOTE | 2017-02-27 11:00 | HHI.PR ---
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 Patient denies any new complaints. No change in clinical status. Objective Vitals Vital Signs Date Time Temp Pulse Resp B/P (MAP) Pulse Ox O2 Delivery O2 Flow Rate FiO2 02/27/17 08:00 98.3 60 16 119/64 (82) 99 02/26/17 20:00 98.1 78 20 127/68 (87) 96 I/O 02/26/17 02/26/17 02/26/17 02/27/17 02/27/17 02/27/17 07:00 15:00 23:00 07:00 15:00 23:00 Intake Total 480 ml 820 ml 240 ml Balance 480 ml 820 ml 240 ml Intake Oral 480 ml 820 ml 240 ml # Voids 2 2 3 # Bowel Movements 0 0 Objective Remarks GENERAL: Well-developed, well-nourished, in no acute distress. alert HEENT: Head is normocephalic without any lesions or masses noted. Facial features are symmetric. Eyes: Extraocular muscles are intact. Conjunctivae were clear. NECK: Trachea midline no deviation. No JVD CARDIAC: Regular rhythm, regular rate. S1/S2 are heard. No murmurs gallops or rubs. LUNGS: Clear to auscultation bilaterally. No wheeze, rhonchi or rales. No use of accessory muscles on inspiration or expiration. ABDOMEN: Soft, nontender. Nondistended. Bowel sounds heard in all 4 quadrants. No organomegaly or masses. Negative rebound, negative guarding EXTREMITIES: No edema, pulses are equal bilaterally. No cyanosis or clubbing NEUROLOGY: Mood and affect appear appropriate. Cranial nerves II through XII grossly intact. Moving all extremities, Procedures None. Urinary Catheter: No Vascular Central Line Catheter: No A/P Assessment and Plan Total Self Care Deficit: Case management trying to find appropriate placement. 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 Reported mental capacity of 89 year-old. Patient is a flight risk, patient has to have sitter ordered Hypertension, stable Lisinopril 20 mg daily Norvasc 10 mg daily DVT Prophylaxis: Low risk, patient ambulating Record reviewed, no change in treatment plan, awaiting case management for discharge. Discharge Planning Discharge once arrangements made by case management Yaniv Simmons Feb 27, 2017 11:00
[2017-02-27 20:00] VITALS: BP 123/75; PULSE 68; RESP 18; TEMP 97.6; O2SAT 95
[2017-02-28 08:00] VITALS: BP 125/62; PULSE 67; RESP 16; TEMP 96; O2SAT 93
--- NOTE | 2017-02-28 08:16 | HHI.PR ---
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 Patient does not indicate any new complaints. No acute events overnight. No change in treatment plan. Objective Vitals Vital Signs Date Time Temp Pulse Resp B/P (MAP) Pulse Ox O2 Delivery O2 Flow Rate FiO2 02/27/17 20:00 97.6 68 18 123/75 (91) 95 I/O 02/27/17 02/27/17 02/27/17 02/28/17 02/28/17 02/28/17 07:00 15:00 23:00 07:00 15:00 23:00 Intake Total 240 ml 850 ml 200 ml Balance 240 ml 850 ml 200 ml Intake Oral 240 ml 850 ml 200 ml # Voids 3 3 3 Objective Remarks GENERAL: Well-developed, well-nourished, in no acute distress. alert HEENT: Head is normocephalic without any lesions or masses noted. Facial features are symmetric. Eyes: Extraocular muscles are intact. Conjunctivae were clear. NECK: Trachea midline no deviation. No JVD CARDIAC: Regular rhythm, regular rate. S1/S2 are heard. No murmurs gallops or rubs. LUNGS: Clear to auscultation bilaterally. No wheeze, rhonchi or rales. No use of accessory muscles on inspiration or expiration. ABDOMEN: Soft, nontender. Nondistended. Bowel sounds heard in all 4 quadrants. No organomegaly or masses. Negative rebound, negative guarding EXTREMITIES: No edema, pulses are equal bilaterally. No cyanosis or clubbing NEUROLOGY: Mood and affect appear appropriate. Cranial nerves II through XII grossly intact. Moving all extremities, Procedures None. Urinary Catheter: No Vascular Central Line Catheter: No A/P Assessment and Plan Total Self Care Deficit: Case management trying to find appropriate placement. 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 Reported mental capacity of 89 year-old. Patient is a flight risk, patient has to have sitter ordered Hypertension, stable Lisinopril 20 mg daily Norvasc 10 mg daily DVT Prophylaxis: Low risk, patient ambulating Record reviewed, awaiting case management for discharge. no change in treatment plan, Discharge Planning Discharge once arrangements made by case management Yaniv Simmons Feb 28, 2017 08:16
[2017-02-28] MEDS: LISINOPRIL 20 MG TAB PO SCH (09:26)
[2017-02-28 20:00] VITALS: BP 124/72; PULSE 74; RESP 16; TEMP 97.2; O2SAT 96
[2017-03-01 08:00] VITALS: BP 130/69; PULSE 63; RESP 16; TEMP 98.7; O2SAT 98
--- NOTE | 2017-03-01 09:24 | HHI.PR ---
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 Patient seen and examined, lying in bed comfortably, sitter at bedside. Denies any new acute complaints overnight. Denies any pain. VSS. Eating well. Ambulating well. Objective Vitals Vital Signs Date Time Temp Pulse Resp B/P (MAP) Pulse Ox O2 Delivery O2 Flow Rate FiO2 03/01/17 08:00 98.7 63 16 130/69 (89) 98 02/28/17 20:00 97.2 74 16 124/72 (89) 96 I/O 02/28/17 02/28/17 02/28/17 03/01/17 03/01/17 03/01/17 07:00 15:00 23:00 07:00 15:00 23:00 Intake Total 200 ml 236 ml 240 ml Balance 200 ml 236 ml 240 ml Intake Oral 200 ml 236 ml 240 ml # Voids 3 2 1 # Bowel Movements 0 0 Objective Remarks GENERAL: Well-nourished, well-developed male patient lying in bed in NAD. Awake and alert. SKIN: Warm and dry. No rash. HEENT: Normocephalic. Atraumatic. Pupils equal and round. No scleral icterus. No injection or drainage. No nasal bleeding or discharge. Mucous membranes pink and moist. NECK: Supple. Trachea midline. CARDIOVASCULAR: Regular rate and rhythm. S1, S2 noted. No murmur appreciated. RESPIRATORY: No accessory muscle use. Clear to auscultation. Breath sounds equal bilaterally. GASTROINTESTINAL: Abdomen soft, non-tender, nondistended. Normoactive bowel sounds x4. No guarding noted. MUSCULOSKELETAL: No obvious deformities. Extremities without clubbing, cyanosis , or edema. NEUROLOGICAL: Awake and alert. No obvious cranial nerve deficits. Motor grossly within normal limits. 5/5 muscle strength in bilateral upper and lower extremities. Normal speech. PSYCHIATRIC: Appropriate mood and affect. Procedures None. 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 Patient was initially Youssef acted and treated by psychiatrist, Youssef act was lifted and transferred to medical service. 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 Reported mental capacity of 89 year-old. Patient is a flight risk, patient has to have sitter ordered Hypertension, stable Lisinopril 20 mg daily Norvasc 10 mg daily Continue to monitor BP trends. DVT Prophylaxis: Low risk, patient ambulating. Medical records reviewed and no new changes to current plan. Will continue to follow clinically. CM assisting in dc needs. Discharge Planning Case management assisting. Shirin Raza Mar 01, 2017 09:24
[2017-03-01] MEDS: LISINOPRIL 20 MG TAB PO SCH (10:28)
[2017-03-01 20:00] VITALS: BP 134/85; PULSE 72; RESP 16; TEMP 98.2; O2SAT 96
[2017-03-02 07:50] VITALS: BP 133/74; PULSE 65; RESP 20; TEMP 97.2; O2SAT 98
[2017-03-02] MEDS: LISINOPRIL 20 MG TAB PO SCH (09:44)
--- NOTE | 2017-03-02 13:41 | HHI.PR ---
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 Patient seen and examined, walking around unit. In no apparent distress. In good spirits today. No change in clinical condition. Afebrile. Eating well. Ambulating well. Objective Vitals Vital Signs Date Time Temp Pulse Resp B/P (MAP) Pulse Ox O2 Delivery O2 Flow Rate FiO2 03/02/17 07:50 97.2 65 20 133/74 (93) 98 03/01/17 20:00 98.2 72 16 134/85 (101) 96 I/O 03/01/17 03/01/17 03/01/17 03/02/17 03/02/17 03/02/17 07:00 15:00 23:00 07:00 15:00 23:00 Intake Total 240 ml 480 ml 0 ml 200 ml Balance 240 ml 480 ml 0 ml 200 ml Intake Oral 240 ml 480 ml 200 ml IV Total 0 ml # Voids 1 3 2 # Bowel Movements 0 0 Objective Remarks GENERAL: Well-nourished, well-developed male patient. Awake and alert. SKIN: Warm and dry. No rash. HEENT: Normocephalic. Atraumatic. Pupils equal and round. No scleral icterus. No injection or drainage. No nasal bleeding or discharge. Mucous membranes pink and moist. NECK: Supple. Trachea midline. CARDIOVASCULAR: Regular rate and rhythm. S1, S2 noted. No murmur appreciated. RESPIRATORY: No accessory muscle use. Clear to auscultation. Breath sounds equal bilaterally. GASTROINTESTINAL: Abdomen soft, non-tender, nondistended. Normoactive bowel sounds x4. No guarding noted. MUSCULOSKELETAL: No obvious deformities. Extremities without clubbing, cyanosis , or edema. NEUROLOGICAL: Awake and alert. No obvious cranial nerve deficits. Motor grossly within normal limits. 5/5 muscle strength in bilateral upper and lower extremities. Normal speech. PSYCHIATRIC: Appropriate mood and affect. Procedures None. 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 Patient was initially Youssef acted and treated by psychiatrist, Youssef act was lifted and transferred to medical service. 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 Reported mental capacity of 89 year-old. Patient is a flight risk, patient has to have sitter ordered Hypertension, stable Lisinopril 20 mg daily Norvasc 10 mg daily Continue to monitor BP trends. DVT Prophylaxis: Low risk, patient ambulating. Medical records reviewed and no new changes to current plan. Will continue to follow clinically. CM assisting in dc needs. Discharge Planning Case management assisting. Shirin Raza Mar 02, 2017 13:41
[2017-03-02 20:00] VITALS: BP 118/69; PULSE 81; RESP 17; TEMP 98.1; O2SAT 99
[2017-03-03 07:50] VITALS: BP 114/62; PULSE 70; RESP 20; TEMP 98; O2SAT 98
[2017-03-03] MEDS: LISINOPRIL 20 MG TAB PO SCH (09:53)
--- NOTE | 2017-03-03 11:30 | HHI.PR ---
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 Patient seen and examined, walking in the halls. Denies any new acute complaints. No change in clinical condition. Patient affect appropriate today. Objective Vitals Vital Signs Date Time Temp Pulse Resp B/P (MAP) Pulse Ox O2 Delivery O2 Flow Rate FiO2 03/03/17 07:50 98.0 70 20 114/62 (79) 98 03/02/17 20:00 98.1 81 17 118/69 (85) 99 I/O 03/02/17 03/02/17 03/02/17 03/03/17 03/03/17 03/03/17 07:00 15:00 23:00 07:00 15:00 23:00 Intake Total 200 ml 922 ml Output Total 2 ml Balance 200 ml 920 ml Intake Oral 200 ml 922 ml Output Urine Total 2 ml # Voids 2 2 # Bowel Movements 0 0 Objective Remarks GENERAL: Well-nourished, well-developed male patient. Awake and alert. SKIN: Warm and dry. No rash. HEENT: Normocephalic. Atraumatic. Pupils equal and round. No scleral icterus. No injection or drainage. No nasal bleeding or discharge. Mucous membranes pink and moist. NECK: Supple. Trachea midline. CARDIOVASCULAR: Regular rate and rhythm. S1, S2 noted. No murmur appreciated. RESPIRATORY: No accessory muscle use. Clear to auscultation. Breath sounds equal bilaterally. GASTROINTESTINAL: Abdomen soft, non-tender, nondistended. Normoactive bowel sounds x4. No guarding noted. MUSCULOSKELETAL: No obvious deformities. Extremities without clubbing, cyanosis , or edema. NEUROLOGICAL: Awake and alert. No obvious cranial nerve deficits. Motor grossly within normal limits. 5/5 muscle strength in bilateral upper and lower extremities. Normal speech. PSYCHIATRIC: Appropriate mood and affect. Procedures None. 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 Patient was initially Youssef acted and treated by psychiatrist, Mikael act was lifted and transferred to medical service. 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 Reported mental capacity of 89 year-old. Patient is a flight risk, patient has to have sitter ordered Hypertension, stable Lisinopril 20 mg daily Norvasc 10 mg daily Continue to monitor BP trends. DVT Prophylaxis: Low risk, patient ambulating. Medical records reviewed and no new changes to current plan. Will continue to follow clinically. CM assisting in dc needs. Discharge Planning Case management assisting. Shirin Raza Mar 03, 2017 11:30
[2017-03-03 20:00] VITALS: BP 124/66; PULSE 69; RESP 18; TEMP 97.9; O2SAT 99
[2017-03-04 07:59] VITALS: BP 144/91; PULSE 122; RESP 18; TEMP 98.3; O2SAT 98
[2017-03-04] MEDS: LISINOPRIL 20 MG TAB PO SCH (08:00)
--- NOTE | 2017-03-04 08:41 | HHI.PR ---
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 Patient seen and examined, standing up in room. Sitter at bedside. Attempted to auscultate patient's lungs he refused and stated "he is fine". Flat affect today. Withdrawn. Has been very active the past few days walking with the sitter around the halls. Eating well. Objective Vitals Vital Signs Date Time Temp Pulse Resp B/P (MAP) Pulse Ox O2 Delivery O2 Flow Rate FiO2 03/04/17 07:59 98.3 122 18 144/91 (108) 98 03/03/17 20:00 97.9 69 18 124/66 (85) 99 I/O 03/03/17 03/03/17 03/03/17 03/04/17 03/04/17 03/04/17 07:00 15:00 23:00 07:00 15:00 23:00 Intake Total 640 ml 480 ml Balance 640 ml 480 ml Intake Oral 640 ml 480 ml # Voids 2 4 2 # Bowel Movements 0 1 Objective Remarks GENERAL: Well-nourished, well-developed male patient. Awake and alert. Flat affect. SKIN: Warm and dry. No rash. HEENT: Normocephalic. Atraumatic. Pupils equal and round. No scleral icterus. No injection or drainage. No nasal bleeding or discharge. Mucous membranes pink and moist. NECK: Supple. Trachea midline. CARDIOVASCULAR: Regular rate and rhythm. S1, S2 noted. No murmur appreciated. RESPIRATORY: No accessory muscle use. Clear to auscultation. Breath sounds equal bilaterally. GASTROINTESTINAL: Abdomen soft, non-tender, nondistended. Normoactive bowel sounds x4. No guarding noted. MUSCULOSKELETAL: No obvious deformities. Extremities without clubbing, cyanosis , or edema. NEUROLOGICAL: Awake and alert. No obvious cranial nerve deficits. Motor grossly within normal limits. 5/5 muscle strength in bilateral upper and lower extremities. Normal speech. PSYCHIATRIC: Appropriate mood and affect. Procedures None. 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 Patient was initially Youssef acted and treated by psychiatrist, Youssef act was lifted and transferred to medical service. 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 Reported mental capacity of 89 year-old. Patient is a flight risk, patient has to have sitter ordered Hypertension, stable Lisinopril 20 mg daily Norvasc 10 mg daily Continue to monitor BP trends. DVT Prophylaxis: Low risk, patient ambulating. Medical records reviewed and no new changes to current plan. Will continue to follow clinically. CM assisting in dc needs. Discharge Planning Case management assisting. Shirin Raza Mar 04, 2017 08:41
[2017-03-04 20:00] VITALS: BP 117/70; PULSE 93; RESP 20; TEMP 98.4; O2SAT 96
[2017-03-05 08:00] VITALS: BP 118/62; PULSE 85; RESP 20; TEMP 99; O2SAT 98
[2017-03-05] MEDS: LISINOPRIL 20 MG TAB PO SCH (09:16)
--- NOTE | 2017-03-05 15:21 | HHI.PR ---
Subjective Remarks Follow up Dandy walker syndrome. Patient seen and examined, lying in bed comfortably. Denies any new acute complaints. No change in clinical condition. Objective Vitals Vital Signs Date Time Temp Pulse Resp B/P (MAP) Pulse Ox O2 Delivery O2 Flow Rate FiO2 03/05/17 08:00 99.0 85 20 118/62 (80) 98 03/04/17 20:00 98.4 93 20 117/70 (86) 96 I/O 03/04/17 03/04/17 03/04/17 03/05/17 03/05/17 03/05/17 07:00 15:00 23:00 07:00 15:00 23:00 Intake Total 480 ml 1200 ml 480 ml 840 ml Balance 480 ml 1200 ml 480 ml 840 ml Intake Oral 480 ml 1200 ml 480 ml 840 ml # Voids 2 3 3 2 # Bowel Movements 1 1 1 Objective Remarks GENERAL: Well-nourished, well-developed male patient. Awake and alert. Flat affect. SKIN: Warm and dry. No rash. HEENT: Normocephalic. Atraumatic. Pupils equal and round. No scleral icterus. No injection or drainage. No nasal bleeding or discharge. Mucous membranes pink and moist. NECK: Supple. Trachea midline. CARDIOVASCULAR: Regular rate and rhythm. S1, S2 noted. No murmur appreciated. RESPIRATORY: No accessory muscle use. Clear to auscultation. Breath sounds equal bilaterally. GASTROINTESTINAL: Abdomen soft, non-tender, nondistended. Normoactive bowel sounds x4. No guarding noted. MUSCULOSKELETAL: No obvious deformities. Extremities without clubbing, cyanosis , or edema. NEUROLOGICAL: Awake and alert. No obvious cranial nerve deficits. Motor grossly within normal limits. 5/5 muscle strength in bilateral upper and lower extremities. Normal speech. PSYCHIATRIC: Appropriate mood and affect. Procedures None. 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 Patient was initially Youssef acted and treated by psychiatrist, Mikael act was lifted and transferred to medical service. 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 Reported mental capacity of 89 year-old. Patient is a flight risk, patient has to have sitter ordered Hypertension, stable Lisinopril 20 mg daily Norvasc 10 mg daily Continue to monitor BP trends. DVT Prophylaxis: Low risk, patient ambulating. Medical records reviewed and no new changes to current plan. Will continue to follow clinically. CM assisting in dc needs. Discharge Planning Case management assisting. Shirin Raza Mar 05, 2017 15:21
[2017-03-05 20:03] VITALS: BP 120/66; PULSE 56; RESP 16; TEMP 98.6; O2SAT 98
[2017-03-06 08:03] VITALS: BP 105/60; PULSE 72; RESP 18; TEMP 97.9; O2SAT 99
[2017-03-06] MEDS: LISINOPRIL 20 MG TAB PO SCH (08:36)
--- NOTE | 2017-03-06 09:51 | HHI.PR ---
Subjective Remarks Follow up Dandy walker syndrome. Seen and examined, sitting up in bed playing with phone. Denies any changes. Has been eating. Ambulating well. Sitter at bedside. No reports of any acute events overnight. Objective Vitals Vital Signs Date Time Temp Pulse Resp B/P (MAP) Pulse Ox O2 Delivery O2 Flow Rate FiO2 03/06/17 08:03 97.9 72 18 105/60 (75) 99 03/05/17 20:03 98.6 56 16 120/66 (84) 98 I/O 03/05/17 03/05/17 03/05/17 03/06/17 03/06/17 03/06/17 07:00 15:00 23:00 07:00 15:00 23:00 Intake Total 480 ml 840 ml Balance 480 ml 840 ml Intake Oral 480 ml 840 ml # Voids 3 2 1 3 # Bowel Movements 1 1 Objective Remarks GENERAL: Well-nourished, well-developed male patient. Awake and alert. Flat affect. SKIN: Warm and dry. No rash. HEENT: Normocephalic. Atraumatic. Pupils equal and round. No scleral icterus. No injection or drainage. No nasal bleeding or discharge. Mucous membranes pink and moist. NECK: Supple. Trachea midline. CARDIOVASCULAR: Regular rate and rhythm. S1, S2 noted. No murmur appreciated. RESPIRATORY: No accessory muscle use. Clear to auscultation. Breath sounds equal bilaterally. GASTROINTESTINAL: Abdomen soft, non-tender, nondistended. Normoactive bowel sounds x4. No guarding noted. MUSCULOSKELETAL: No obvious deformities. Extremities without clubbing, cyanosis , or edema. NEUROLOGICAL: Awake and alert. No obvious cranial nerve deficits. Motor grossly within normal limits. 5/5 muscle strength in bilateral upper and lower extremities. Normal speech. PSYCHIATRIC: Appropriate mood and affect. Procedures None. 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 Patient was initially Youssef acted and treated by psychiatrist, Mikael act was lifted and transferred to medical service. 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 Reported mental capacity of 89 year-old. Patient is a flight risk, patient has to have sitter ordered Hypertension, stable Lisinopril 20 mg daily Norvasc 10 mg daily Continue to monitor BP trends. Hold parameters for medications. DVT Prophylaxis: Low risk, patient ambulating. Medical records reviewed and no new changes to current plan. Will continue to follow clinically. CM assisting in dc needs. Discharge Planning Case management assisting. Shirin Raza Mar 06, 2017 09:51
[2017-03-06 20:00] VITALS: BP 157/89; PULSE 71; RESP 18; TEMP 97.4; O2SAT 100
[2017-03-07 08:00] VITALS: BP 151/77; PULSE 62; RESP 16; TEMP 97.6
[2017-03-07] MEDS: LISINOPRIL 20 MG TAB PO SCH (09:20)
--- NOTE | 2017-03-07 11:17 | HHI.PR ---
Subjective Remarks Follow up Dandy walker syndrome. Patient seen and examined, no change in clinical condition. Patient ambulating well. Denies any chest pain, headache or shortness of breath. Eating well. Afebrile. VSS. Objective Vitals Vital Signs Date Time Temp Pulse Resp B/P (MAP) Pulse Ox O2 Delivery O2 Flow Rate FiO2 03/07/17 08:00 97.6 62 16 151/77 (101) 03/06/17 20:00 97.4 71 18 157/89 (111) 100 I/O 03/06/17 03/06/17 03/06/17 03/07/17 03/07/17 03/07/17 07:00 15:00 23:00 07:00 15:00 23:00 Intake Total 600 ml 240 ml Balance 600 ml 240 ml Intake Oral 600 ml 240 ml # Voids 3 2 3 # Bowel Movements 1 1 Objective Remarks GENERAL: Well-nourished, well-developed male patient. Awake and alert. SKIN: Warm and dry. No rash. HEENT: Normocephalic. Atraumatic. Pupils equal and round. No scleral icterus. No injection or drainage. No nasal bleeding or discharge. Mucous membranes pink and moist. NECK: Supple. Trachea midline. CARDIOVASCULAR: Regular rate and rhythm. S1, S2 noted. No murmur appreciated. RESPIRATORY: No accessory muscle use. Clear to auscultation. Breath sounds equal bilaterally. GASTROINTESTINAL: Abdomen soft, non-tender, nondistended. Normoactive bowel sounds x4. No guarding noted. MUSCULOSKELETAL: No obvious deformities. Extremities without clubbing, cyanosis , or edema. NEUROLOGICAL: Awake and alert. No obvious cranial nerve deficits. Motor grossly within normal limits. 5/5 muscle strength in bilateral upper and lower extremities. Normal speech. PSYCHIATRIC: Appropriate mood and affect. Procedures None. 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 Patient was initially Mikael acted and treated by psychiatrist, Mikael act was lifted and transferred to medical service. 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 Reported mental capacity of 89 year-old. Patient is a flight risk, patient has to have sitter ordered Hypertension, stable Lisinopril 20 mg daily Norvasc 10 mg daily Continue to monitor BP trends. Hold parameters for medications. DVT Prophylaxis: Low risk, patient ambulating. Medical records reviewed and no new changes to current plan. Will continue to follow clinically. CM assisting in dc needs. Discharge Planning Case management assisting. Shirin Raza Mar 07, 2017 11:17
[2017-03-07 20:00] VITALS: BP 130/76; PULSE 62; RESP 18; TEMP 98; O2SAT 99
[2017-03-08 07:52] VITALS: BP 128/73; PULSE 62; RESP 20; TEMP 97.2; O2SAT 97
[2017-03-08] MEDS: LISINOPRIL 20 MG TAB PO SCH (09:00)
--- NOTE | 2017-03-08 10:28 | HHI.PR ---
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 Patient denies any new complaints. No change in clinical status. No indication of any acute events overnight. Objective Vitals Vital Signs Date Time Temp Pulse Resp B/P (MAP) Pulse Ox O2 Delivery O2 Flow Rate FiO2 03/08/17 07:52 97.2 62 20 128/73 (91) 97 03/07/17 20:00 98.0 62 18 130/76 (94) 99 I/O 03/07/17 03/07/17 03/07/17 03/08/17 03/08/17 03/08/17 07:00 15:00 23:00 07:00 15:00 23:00 Intake Total 240 ml 750 ml 480 ml Balance 240 ml 750 ml 480 ml Intake Oral 240 ml 750 ml 480 ml # Voids 3 3 1 2 # Bowel Movements 1 0 Objective Remarks GENERAL: Well-developed, well-nourished, in no acute distress. alert HEENT: Head is normocephalic without any lesions or masses noted. Facial features are symmetric. Eyes: Extraocular muscles are intact. Conjunctivae were clear. NECK: Trachea midline no deviation. No JVD CARDIAC: Regular rhythm, regular rate. S1/S2 are heard. No murmurs gallops or rubs. LUNGS: Clear to auscultation bilaterally. No wheeze, rhonchi or rales. No use of accessory muscles on inspiration or expiration. ABDOMEN: Soft, nontender. Nondistended. Bowel sounds heard in all 4 quadrants. No organomegaly or masses. Negative rebound, negative guarding EXTREMITIES: No edema, pulses are equal bilaterally. No cyanosis or clubbing NEUROLOGY: Mood and affect appear appropriate. Cranial nerves II through XII grossly intact. Moving all extremities, Procedures None. Urinary Catheter: No Vascular Central Line Catheter: No A/P Assessment and Plan Total Self Care Deficit: Case management trying to find appropriate placement. 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 Reported mental capacity of 89 year-old. Patient is a flight risk, patient has to have sitter ordered Hypertension, stable Lisinopril 20 mg daily Norvasc 10 mg daily DVT Prophylaxis: Low risk, patient ambulating Record reviewed, no change in treatment plan, awaiting case management for discharge. Discharge Planning Discharge once arrangements made by case management Yaniv Simmons Mar 08, 2017 10:28
[2017-03-08 20:00] VITALS: BP 134/79; PULSE 79; RESP 20; TEMP 97.5; O2SAT 94
[2017-03-09 07:50] VITALS: BP 109/55; PULSE 54; RESP 20; TEMP 97.8; O2SAT 99
--- NOTE | 2017-03-09 08:37 | HHI.PR ---
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 Patient has any new complaints. No acute events overnight. Vital signs are stable Objective Vitals Vital Signs Date Time Temp Pulse Resp B/P (MAP) Pulse Ox O2 Delivery O2 Flow Rate FiO2 03/08/17 20:00 97.5 79 20 134/79 (97) 94 I/O 03/08/17 03/08/17 03/08/17 03/09/17 03/09/17 03/09/17 07:00 15:00 23:00 07:00 15:00 23:00 Intake Total 480 ml 960 ml 120 ml 120 ml Balance 480 ml 960 ml 120 ml 120 ml Intake Oral 480 ml 960 ml 120 ml 120 ml # Voids 2 2 1 # Bowel Movements 0 1 Objective Remarks GENERAL: Well-developed, well-nourished, in no acute distress. alert HEENT: Head is normocephalic without any lesions or masses noted. Facial features are symmetric. Eyes: Extraocular muscles are intact. Conjunctivae were clear. NECK: Trachea midline no deviation. No JVD CARDIAC: Regular rhythm, regular rate. S1/S2 are heard. No murmurs gallops or rubs. LUNGS: Clear to auscultation bilaterally. No wheeze, rhonchi or rales. No use of accessory muscles on inspiration or expiration. ABDOMEN: Soft, nontender. Nondistended. Bowel sounds heard in all 4 quadrants. No organomegaly or masses. Negative rebound, negative guarding EXTREMITIES: No edema, pulses are equal bilaterally. No cyanosis or clubbing NEUROLOGY: Mood and affect appear appropriate. Cranial nerves II through XII grossly intact. Moving all extremities, Procedures None. Urinary Catheter: No Vascular Central Line Catheter: No A/P Assessment and Plan Total Self Care Deficit: Case management trying to find appropriate placement. 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 Reported mental capacity of 89 year-old. Patient is a flight risk, patient has to have sitter ordered Hypertension, stable Lisinopril 20 mg daily Norvasc 10 mg daily DVT Prophylaxis: Low risk, patient ambulating Record reviewed, awaiting case management for discharge. no change in treatment plan, Discharge Planning Discharge once arrangements made by case management Yaniv Simmons Mar 09, 2017 08:37
[2017-03-09] MEDS: LISINOPRIL 20 MG TAB PO SCH (09:00)
[2017-03-09 20:00] VITALS: BP 123/70; PULSE 57; RESP 20; TEMP 97.5; O2SAT 96
[2017-03-10 08:00] VITALS: BP 136/87; PULSE 52; RESP 16; TEMP 98.4; O2SAT 97
[2017-03-10] MEDS: LISINOPRIL 20 MG TAB PO SCH (10:14)
--- NOTE | 2017-03-10 10:44 | HHI.PR ---
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 Patient denies any new complaints. No change in clinical status. Objective Vitals Vital Signs Date Time Temp Pulse Resp B/P (MAP) Pulse Ox O2 Delivery O2 Flow Rate FiO2 03/10/17 08:00 98.4 52 16 136/87 (103) 97 03/09/17 20:00 97.5 57 20 123/70 (87) 96 I/O 03/09/17 03/09/17 03/09/17 03/10/17 03/10/17 03/10/17 07:00 15:00 23:00 07:00 15:00 23:00 Intake Total 120 ml 866 ml 240 ml Balance 120 ml 866 ml 240 ml Intake Oral 120 ml 866 ml 240 ml # Voids 1 6 2 # Bowel Movements 0 0 Objective Remarks GENERAL: Well-developed, well-nourished, in no acute distress. alert HEENT: Head is normocephalic without any lesions or masses noted. Facial features are symmetric. Eyes: Extraocular muscles are intact. Conjunctivae were clear. NECK: Trachea midline no deviation. No JVD CARDIAC: Regular rhythm, regular rate. S1/S2 are heard. No murmurs gallops or rubs. LUNGS: Clear to auscultation bilaterally. No wheeze, rhonchi or rales. No use of accessory muscles on inspiration or expiration. ABDOMEN: Soft, nontender. Nondistended. Bowel sounds heard in all 4 quadrants. No organomegaly or masses. Negative rebound, negative guarding EXTREMITIES: No edema, pulses are equal bilaterally. No cyanosis or clubbing NEUROLOGY: Mood and affect appear appropriate. Cranial nerves II through XII grossly intact. Moving all extremities, Procedures None. Urinary Catheter: No Vascular Central Line Catheter: No A/P Assessment and Plan Total Self Care Deficit: Case management trying to find appropriate placement. 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 Reported mental capacity of 89 year-old. Patient is a flight risk, patient has to have sitter ordered Hypertension, stable Lisinopril 20 mg daily Norvasc 10 mg daily DVT Prophylaxis: Low risk, patient ambulating Record reviewed, no change in treatment plan, awaiting case management for discharge. Discharge Planning Discharge once arrangements made by case management Yaniv Simmons Mar 10, 2017 10:44
[2017-03-10 20:00] VITALS: BP 128/59; PULSE 77; RESP 18; TEMP 98.3; O2SAT 93
[2017-03-11 08:00] VITALS: BP 123/74; PULSE 80; RESP 14; TEMP 97.8; O2SAT 95
--- NOTE | 2017-03-11 08:13 | HHI.PR ---
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 Patient denies any new complaints. No change in clinical status. Vital signs are stable. Afebrile Objective Vitals Vital Signs Date Time Temp Pulse Resp B/P (MAP) Pulse Ox O2 Delivery O2 Flow Rate FiO2 03/10/17 20:00 98.3 77 18 128/59 (82) 93 I/O 03/10/17 03/10/17 03/10/17 03/11/17 03/11/17 03/11/17 07:00 15:00 23:00 07:00 15:00 23:00 Intake Total 240 ml 850 ml 300 ml 280 ml Balance 240 ml 850 ml 300 ml 280 ml Intake Oral 240 ml 850 ml 300 ml 280 ml # Voids 2 2 2 # Bowel Movements 0 0 Objective Remarks GENERAL: Well-developed, well-nourished, in no acute distress. alert HEENT: Head is normocephalic without any lesions or masses noted. Facial features are symmetric. Eyes: Extraocular muscles are intact. Conjunctivae were clear. NECK: Trachea midline no deviation. No JVD CARDIAC: Regular rhythm, regular rate. S1/S2 are heard. No murmurs gallops or rubs. LUNGS: Clear to auscultation bilaterally. No wheeze, rhonchi or rales. No use of accessory muscles on inspiration or expiration. ABDOMEN: Soft, nontender. Nondistended. Bowel sounds heard in all 4 quadrants. No organomegaly or masses. Negative rebound, negative guarding EXTREMITIES: No edema, pulses are equal bilaterally. No cyanosis or clubbing NEUROLOGY: Mood and affect appear appropriate. Cranial nerves II through XII grossly intact. Moving all extremities, Procedures None. Urinary Catheter: No Vascular Central Line Catheter: No A/P Assessment and Plan Total Self Care Deficit: Case management trying to find appropriate placement. 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 Reported mental capacity of 89 year-old. Patient is a flight risk, patient has to have sitter ordered Hypertension, stable Lisinopril 20 mg daily Norvasc 10 mg daily DVT Prophylaxis: Low risk, patient ambulating Record reviewed, awaiting case management for discharge. no change in treatment plan, Discharge Planning Discharge once arrangements made by case management Yaniv Simmons Mar 11, 2017 08:13
[2017-03-11] MEDS: LISINOPRIL 20 MG TAB PO SCH (08:42)
[2017-03-11 20:26] VITALS: BP 134/71; PULSE 66; RESP 16; TEMP 97.9; O2SAT 98
[2017-03-12 08:00] VITALS: BP 122/60; PULSE 56; RESP 16; TEMP 97.6; O2SAT 98
[2017-03-12] MEDS: SENNOSIDES 8.6 MG TAB PO PRN (08:19)
[2017-03-12] MEDS: LISINOPRIL 20 MG TAB PO SCH (08:19)
--- NOTE | 2017-03-12 10:22 | HHI.PR ---
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 Patient denies any new complaints. No change in clinical status. Vital signs are stable, afebrile. Patient constipated today. Bowel regimen in place Objective Vitals Vital Signs Date Time Temp Pulse Resp B/P (MAP) Pulse Ox O2 Delivery O2 Flow Rate FiO2 03/12/17 08:00 97.6 56 16 122/60 (80) 98 03/11/17 20:26 97.9 66 16 134/71 (92) 98 I/O 03/11/17 03/11/17 03/11/17 03/12/17 03/12/17 03/12/17 07:00 15:00 23:00 07:00 15:00 23:00 Intake Total 280 ml 850 ml 720 ml Balance 280 ml 850 ml 720 ml Intake Oral 280 ml 850 ml 720 ml # Voids 2 3 4 # Bowel Movements 0 0 Objective Remarks GENERAL: Well-developed, well-nourished, in no acute distress. alert HEENT: Head is normocephalic without any lesions or masses noted. Facial features are symmetric. Eyes: Extraocular muscles are intact. Conjunctivae were clear. NECK: Trachea midline no deviation. No JVD CARDIAC: Regular rhythm, regular rate. S1/S2 are heard. No murmurs gallops or rubs. LUNGS: Clear to auscultation bilaterally. No wheeze, rhonchi or rales. No use of accessory muscles on inspiration or expiration. ABDOMEN: Soft, nontender. Nondistended. Bowel sounds heard in all 4 quadrants. No organomegaly or masses. Negative rebound, negative guarding EXTREMITIES: No edema, pulses are equal bilaterally. No cyanosis or clubbing NEUROLOGY: Mood and affect appear appropriate. Cranial nerves II through XII grossly intact. Moving all extremities, Procedures None. Urinary Catheter: No Vascular Central Line Catheter: No A/P Assessment and Plan Total Self Care Deficit: Case management trying to find appropriate placement. 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 Reported mental capacity of 89 year-old. Patient is a flight risk, patient has to have sitter ordered Hypertension, stable Lisinopril 20 mg daily Norvasc 10 mg daily DVT Prophylaxis: Low risk, patient ambulating Record reviewed, no change in treatment plan, awaiting case management for discharge. Discharge Planning Discharge once arrangements made by case management Yaniv Simmons Mar 12, 2017 10:22
[2017-03-12 20:28] VITALS: BP 115/59; PULSE 54; RESP 16; TEMP 97.9; O2SAT 100
[2017-03-13 08:00] VITALS: BP 120/71; PULSE 62; RESP 16; TEMP 97.6; O2SAT 98
--- NOTE | 2017-03-13 08:08 | HHI.PR ---
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 Patient denies any new complaints. Patient sitting up eating breakfast. Vital signs are stable. Afebrile. Objective Vitals Vital Signs Date Time Temp Pulse Resp B/P (MAP) Pulse Ox O2 Delivery O2 Flow Rate FiO2 03/12/17 20:28 97.9 54 16 115/59 (77) 100 I/O 03/12/17 03/12/17 03/12/17 03/13/17 03/13/17 03/13/17 07:00 15:00 23:00 07:00 15:00 23:00 Intake Total 750 ml Balance 750 ml Intake Oral 750 ml # Voids 4 2 1 # Bowel Movements 2 Objective Remarks GENERAL: Well-developed, well-nourished, in no acute distress. alert HEENT: Head is normocephalic without any lesions or masses noted. Facial features are symmetric. Eyes: Extraocular muscles are intact. Conjunctivae were clear. NECK: Trachea midline no deviation. No JVD CARDIAC: Regular rhythm, regular rate. S1/S2 are heard. No murmurs gallops or rubs. LUNGS: Clear to auscultation bilaterally. No wheeze, rhonchi or rales. No use of accessory muscles on inspiration or expiration. ABDOMEN: Soft, nontender. Nondistended. Bowel sounds heard in all 4 quadrants. No organomegaly or masses. Negative rebound, negative guarding EXTREMITIES: No edema, pulses are equal bilaterally. No cyanosis or clubbing NEUROLOGY: Mood and affect appear appropriate. Cranial nerves II through XII grossly intact. Moving all extremities, Procedures None. Urinary Catheter: No Vascular Central Line Catheter: No A/P Assessment and Plan Total Self Care Deficit: Case management trying to find appropriate placement. 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 Reported mental capacity of 89 year-old. Patient is a flight risk, patient has to have sitter ordered Hypertension, stable Lisinopril 20 mg daily Norvasc 10 mg daily DVT Prophylaxis: Low risk, patient ambulating Record reviewed, awaiting case management for discharge. no change in treatment plan, Discharge Planning Discharge once arrangements made by case management Yaniv Simmons Mar 13, 2017 08:08
[2017-03-13] MEDS: LISINOPRIL 20 MG TAB PO SCH (09:09)
[2017-03-13 21:37] VITALS: BP 127/69; PULSE 76; RESP 16; TEMP 97.7; O2SAT 97
[2017-03-14 08:00] VITALS: BP 128/74; PULSE 64; RESP 14; TEMP 96.9; O2SAT 94
[2017-03-14] MEDS: LISINOPRIL 20 MG TAB PO SCH (08:29)
--- NOTE | 2017-03-14 09:26 | HHI.PR ---
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 Patient denies any new complaints. No change in clinical status. Nursing staff does not indicate any acute events overnight. Vital signs are stable, afebrile Objective Vitals Vital Signs Date Time Temp Pulse Resp B/P (MAP) Pulse Ox O2 Delivery O2 Flow Rate FiO2 03/14/17 08:00 96.9 64 14 128/74 (92) 94 03/13/17 21:37 97.7 76 16 127/69 (88) 97 I/O 03/13/17 03/13/17 03/13/17 03/14/17 03/14/17 03/14/17 07:00 15:00 23:00 07:00 15:00 23:00 Intake Total 850 ml 354 ml Balance 850 ml 354 ml Intake Oral 850 ml 354 ml # Voids 1 3 2 # Bowel Movements 0 Objective Remarks GENERAL: Well-developed, well-nourished, in no acute distress. alert HEENT: Head is normocephalic without any lesions or masses noted. Facial features are symmetric. Eyes: Extraocular muscles are intact. Conjunctivae were clear. NECK: Trachea midline no deviation. No JVD CARDIAC: Regular rhythm, regular rate. S1/S2 are heard. No murmurs gallops or rubs. LUNGS: Clear to auscultation bilaterally. No wheeze, rhonchi or rales. No use of accessory muscles on inspiration or expiration. ABDOMEN: Soft, nontender. Nondistended. Bowel sounds heard in all 4 quadrants. No organomegaly or masses. Negative rebound, negative guarding EXTREMITIES: No edema, pulses are equal bilaterally. No cyanosis or clubbing NEUROLOGY: Mood and affect appear appropriate. Cranial nerves II through XII grossly intact. Moving all extremities, Procedures None. Urinary Catheter: No Vascular Central Line Catheter: No A/P Assessment and Plan Total Self Care Deficit: Case management trying to find appropriate placement. 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 Reported mental capacity of 89 year-old. Patient is a flight risk, patient has to have sitter ordered Hypertension, stable Lisinopril 20 mg daily Norvasc 10 mg daily DVT Prophylaxis: Low risk, patient ambulating Record reviewed, no change in treatment plan, awaiting case management for discharge. Discharge Planning Discharge once arrangements made by case management aYniv Simmons Mar 14, 2017 09:26
[2017-03-14 20:00] VITALS: BP 96/53; PULSE 76; RESP 20; TEMP 98.5; O2SAT 97
[2017-03-15 08:00] VITALS: BP 123/58; PULSE 80; RESP 18; TEMP 97.3; O2SAT 99
[2017-03-15] MEDS: LISINOPRIL 20 MG TAB PO SCH (08:20)
--- NOTE | 2017-03-15 09:16 | HHI.PR ---
Subjective Remarks Follow up Dandy-walker syndrome. Patient seen and examined, lying in bed comfortably. Denies any new acute events overnight. Denies any complaints. Sitter at bedside. No change in clinical status. Eating well. Ambulating well. Objective Vitals Vital Signs Date Time Temp Pulse Resp B/P (MAP) Pulse Ox O2 Delivery O2 Flow Rate FiO2 03/15/17 08:00 97.3 80 18 123/58 (79) 99 03/14/17 20:00 98.5 76 20 96/53 (67) 97 I/O 03/14/17 03/14/17 03/14/17 03/15/17 03/15/17 03/15/17 07:00 15:00 23:00 07:00 15:00 23:00 Intake Total 590 ml 236 ml 240 ml Balance 590 ml 236 ml 240 ml Intake Oral 590 ml 236 ml 240 ml # Voids 2 2 3 # Bowel Movements 0 1 1 Objective Remarks GENERAL: Well-nourished, well-developed male patient. Awake and alert. SKIN: Warm and dry. No rash. HEENT: Normocephalic. Atraumatic. Pupils equal and round. No scleral icterus. No injection or drainage. No nasal bleeding or discharge. Mucous membranes pink and moist. NECK: Supple. Trachea midline. CARDIOVASCULAR: Regular rate and rhythm. S1, S2 noted. No murmur appreciated. RESPIRATORY: No accessory muscle use. Clear to auscultation. Breath sounds equal bilaterally. GASTROINTESTINAL: Abdomen soft, non-tender, nondistended. Normoactive bowel sounds x4. No guarding noted. MUSCULOSKELETAL: No obvious deformities. Extremities without clubbing, cyanosis , or edema. NEUROLOGICAL: Awake and alert. No obvious cranial nerve deficits. Motor grossly within normal limits. 5/5 muscle strength in bilateral upper and lower extremities. Normal speech. PSYCHIATRIC: Appropriate mood and affect. Procedures None. 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 Patient was initially Youssef acted and treated by psychiatrist, Youssef act was lifted and transferred to medical service. 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 Reported mental capacity of 89 year-old. Patient is a flight risk, patient has to have sitter ordered Hypertension, stable Lisinopril 20 mg daily Norvasc 10 mg daily Continue to monitor BP trends. Hold parameters for medications. DVT Prophylaxis: Low risk, patient ambulating. Medical records reviewed and no new changes to current plan. Will continue to follow clinically. CM assisting in dc needs. Discharge Planning Case management assisting. Shirin Raza Mar 15, 2017 09:16
[2017-03-15 20:00] VITALS: BP 120/60; PULSE 76; RESP 18; TEMP 97.5; O2SAT 96
[2017-03-16 07:50] VITALS: BP 113/87; PULSE 62; RESP 20; TEMP 97.8; O2SAT 98
[2017-03-16] MEDS: LISINOPRIL 20 MG TAB PO SCH (08:31)
--- NOTE | 2017-03-16 14:02 | HHI.PR ---
Subjective Remarks Follow up Dandy-walker syndrome. Patient seen and examined, lying in bed comfortably. Sitter at bedside. No reports of any acute events overnight. No change in clinical condition. Objective Vitals Vital Signs Date Time Temp Pulse Resp B/P (MAP) Pulse Ox O2 Delivery O2 Flow Rate FiO2 03/16/17 07:50 97.8 62 20 113/87 (96) 98 03/15/17 20:00 97.5 76 18 120/60 (80) 96 I/O 03/15/17 03/15/17 03/15/17 03/16/17 03/16/17 03/16/17 07:00 15:00 23:00 07:00 15:00 23:00 Intake Total 240 ml 1080 ml 620 ml Balance 240 ml 1080 ml 620 ml Intake Oral 240 ml 1080 ml 620 ml # Voids 3 3 3 # Bowel Movements 1 0 0 Objective Remarks GENERAL: Well-nourished, well-developed male patient. Awake and alert. SKIN: Warm and dry. No rash. HEENT: Normocephalic. Atraumatic. Pupils equal and round. No scleral icterus. No injection or drainage. No nasal bleeding or discharge. Mucous membranes pink and moist. NECK: Supple. Trachea midline. CARDIOVASCULAR: Regular rate and rhythm. S1, S2 noted. No murmur appreciated. RESPIRATORY: No accessory muscle use. Clear to auscultation. Breath sounds equal bilaterally. GASTROINTESTINAL: Abdomen soft, non-tender, nondistended. Normoactive bowel sounds x4. No guarding noted. MUSCULOSKELETAL: No obvious deformities. Extremities without clubbing, cyanosis , or edema. NEUROLOGICAL: Awake and alert. No obvious cranial nerve deficits. Motor grossly within normal limits. 5/5 muscle strength in bilateral upper and lower extremities. Normal speech. PSYCHIATRIC: Appropriate mood and affect. Procedures None. 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 Patient was initially Mikael acted and treated by psychiatrist, Youssef act was lifted and transferred to medical service. 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 Reported mental capacity of 89 year-old. Patient is a flight risk, patient has to have sitter ordered Hypertension, stable Lisinopril 20 mg daily Norvasc 10 mg daily Continue to monitor BP trends. Hold parameters for medications. DVT Prophylaxis: Low risk, patient ambulating. Medical records reviewed and no new changes to current plan. Will continue to follow clinically. CM assisting in dc needs. Discharge Planning Case management assisting. Shirin Raza Mar 16, 2017 14:02
[2017-03-16 20:00] VITALS: BP 104/64; PULSE 60; RESP 16; TEMP 97.5; O2SAT 98
[2017-03-17 08:00] VITALS: BP 128/75; PULSE 72; RESP 18; TEMP 98.4; O2SAT 94
[2017-03-17] MEDS: LISINOPRIL 20 MG TAB PO SCH (09:27)
--- NOTE | 2017-03-17 15:04 | HHI.PR ---
Subjective Remarks Follow up dandy-walker syndrome. Patient seen and examined, lying in bed comfortably. More talkative today. Denies any new acute complaints. No change in clinical condition. Afebrile. Objective Vitals Vital Signs Date Time Temp Pulse Resp B/P (MAP) Pulse Ox O2 Delivery O2 Flow Rate FiO2 03/17/17 08:00 98.4 72 18 128/75 (92) 94 03/16/17 20:00 97.5 60 16 104/64 (77) 98 I/O 03/16/17 03/16/17 03/16/17 03/17/17 03/17/17 03/17/17 07:00 15:00 23:00 07:00 15:00 23:00 Intake Total 620 ml 960 ml 240 ml 354 ml Balance 620 ml 960 ml 240 ml 354 ml Intake Oral 620 ml 960 ml 240 ml 354 ml # Voids 3 2 3 # Bowel Movements 0 0 1 Objective Remarks GENERAL: Well-nourished, well-developed male patient. Awake and alert. SKIN: Warm and dry. No rash. HEENT: Normocephalic. Atraumatic. Pupils equal and round. No scleral icterus. No injection or drainage. No nasal bleeding or discharge. Mucous membranes pink and moist. NECK: Supple. Trachea midline. CARDIOVASCULAR: Regular rate and rhythm. S1, S2 noted. No murmur appreciated. RESPIRATORY: No accessory muscle use. Clear to auscultation. Breath sounds equal bilaterally. GASTROINTESTINAL: Abdomen soft, non-tender, nondistended. Normoactive bowel sounds x4. No guarding noted. MUSCULOSKELETAL: No obvious deformities. Extremities without clubbing, cyanosis , or edema. NEUROLOGICAL: Awake and alert. No obvious cranial nerve deficits. Motor grossly within normal limits. 5/5 muscle strength in bilateral upper and lower extremities. Normal speech. PSYCHIATRIC: Appropriate mood and affect. Procedures None. 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 Patient was initially Youssef acted and treated by psychiatrist, Youssef act was lifted and transferred to medical service. 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 Reported mental capacity of 89 year-old. Patient is a flight risk, patient has to have sitter ordered Hypertension, stable Lisinopril 20 mg daily Norvasc 10 mg daily Continue to monitor BP trends. Hold parameters for medications. DVT Prophylaxis: Low risk, patient ambulating. Medical records reviewed and no new changes to current plan. Will continue to follow clinically. CM assisting in dc needs. Discharge Planning Case management assisting. Shirin Raza Mar 17, 2017 15:04
[2017-03-17 20:00] VITALS: BP 115/55; PULSE 58; RESP 18; TEMP 98.8; O2SAT 95
[2017-03-18 08:00] VITALS: BP 134/78; PULSE 61; RESP 16; TEMP 97.8; O2SAT 99
[2017-03-18] MEDS: LISINOPRIL 20 MG TAB PO SCH (08:20)
--- NOTE | 2017-03-18 17:21 | HHI.PR ---
Subjective Remarks Follow up Dandy-walker syndrome. Patient seen and examined, lying in bed comfortably. Sitter at bedside. No reports of any acute events overnight. No change in clinical condition. Objective Vitals Vital Signs Date Time Temp Pulse Resp B/P (MAP) Pulse Ox O2 Delivery O2 Flow Rate FiO2 03/18/17 08:00 97.8 61 16 134/78 (96) 99 03/17/17 20:00 98.8 58 18 115/55 (75) 95 I/O 03/17/17 03/17/17 03/17/17 03/18/17 03/18/17 03/18/17 07:00 15:00 23:00 07:00 15:00 23:00 Intake Total 240 ml 354 ml 236 ml 240 ml 850 ml Balance 240 ml 354 ml 236 ml 240 ml 850 ml Intake Oral 240 ml 354 ml 236 ml 240 ml 850 ml # Voids 3 3 3 # Bowel Movements 1 1 0 Objective Remarks GENERAL: Well-nourished, well-developed male patient. Awake and alert. SKIN: Warm and dry. No rash. HEENT: Normocephalic. Atraumatic. Pupils equal and round. No scleral icterus. No injection or drainage. No nasal bleeding or discharge. Mucous membranes pink and moist. NECK: Supple. Trachea midline. CARDIOVASCULAR: Regular rate and rhythm. S1, S2 noted. No murmur appreciated. RESPIRATORY: No accessory muscle use. Clear to auscultation. Breath sounds equal bilaterally. GASTROINTESTINAL: Abdomen soft, non-tender, nondistended. Normoactive bowel sounds x4. No guarding noted. MUSCULOSKELETAL: No obvious deformities. Extremities without clubbing, cyanosis , or edema. NEUROLOGICAL: Awake and alert. No obvious cranial nerve deficits. Motor grossly within normal limits. 5/5 muscle strength in bilateral upper and lower extremities. Normal speech. PSYCHIATRIC: Appropriate mood and affect. Procedures None. 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 Patient was initially Youssef acted and treated by psychiatrist, Youssef act was lifted and transferred to medical service. 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 Reported mental capacity of 89 year-old. Patient is a flight risk, patient has to have sitter ordered Hypertension, stable Lisinopril 20 mg daily Norvasc 10 mg daily Continue to monitor BP trends. Hold parameters for medications. DVT Prophylaxis: Low risk, patient ambulating. Medical records reviewed and no new changes to current plan. Will continue to follow clinically. CM assisting in dc needs. Discharge Planning Case management assisting. Shirin Raza Mar 18, 2017 17:21
[2017-03-18 20:04] VITALS: BP 112/62; PULSE 55; RESP 16; TEMP 98.7; O2SAT 99
[2017-03-19 08:00] VITALS: BP 112/75; PULSE 70; RESP 16; TEMP 98.4; O2SAT 96
[2017-03-19] MEDS: LISINOPRIL 20 MG TAB PO SCH (08:48)
--- NOTE | 2017-03-19 16:05 | HHI.PR ---
Subjective Remarks Follow up Dandy-walker syndrome. Patient seen and examined, walking the unit with sitter. No changes. Appears happy and pleasant. No change in clinical condition. No events reported. Objective Vitals Vital Signs Date Time Temp Pulse Resp B/P (MAP) Pulse Ox O2 Delivery O2 Flow Rate FiO2 03/19/17 08:00 98.4 70 16 112/75 (87) 96 03/18/17 20:04 98.7 55 16 112/62 (79) 99 I/O 03/18/17 03/18/17 03/18/17 03/19/17 03/19/17 03/19/17 07:00 15:00 23:00 07:00 15:00 23:00 Intake Total 240 ml 850 ml 480 ml Balance 240 ml 850 ml 480 ml Intake Oral 240 ml 850 ml 480 ml # Voids 3 2 3 # Bowel Movements 0 Objective Remarks GENERAL: Well-nourished, well-developed male patient. Awake and alert. SKIN: Warm and dry. No rash. HEENT: Normocephalic. Atraumatic. Pupils equal and round. No scleral icterus. No injection or drainage. No nasal bleeding or discharge. Mucous membranes pink and moist. NECK: Supple. Trachea midline. CARDIOVASCULAR: Regular rate and rhythm. S1, S2 noted. No murmur appreciated. RESPIRATORY: No accessory muscle use. Clear to auscultation. Breath sounds equal bilaterally. GASTROINTESTINAL: Abdomen soft, non-tender, nondistended. Normoactive bowel sounds x4. No guarding noted. MUSCULOSKELETAL: No obvious deformities. Extremities without clubbing, cyanosis , or edema. NEUROLOGICAL: Awake and alert. No obvious cranial nerve deficits. Motor grossly within normal limits. 5/5 muscle strength in bilateral upper and lower extremities. Normal speech. PSYCHIATRIC: Appropriate mood and affect. Procedures None. 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 Patient was initially Mikael acted and treated by psychiatrist, Mikael act was lifted and transferred to medical service. 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 Reported mental capacity of 89 year-old. Patient is a flight risk, patient has to have sitter ordered Hypertension, stable Lisinopril 20 mg daily Norvasc 10 mg daily Continue to monitor BP trends. Hold parameters for medications. DVT Prophylaxis: Low risk, patient ambulating. Medical records reviewed and no new changes to current plan. Will continue to follow clinically. CM assisting in dc needs. Discharge Planning Case management assisting. Shirin Raza Mar 19, 2017 16:05
[2017-03-19 21:01] VITALS: BP 126/87; PULSE 86; RESP 16; TEMP 97.9; O2SAT 97
[2017-03-20 08:00] VITALS: BP 114/66; PULSE 50; RESP 16; TEMP 97; O2SAT 97
[2017-03-20] MEDS: LISINOPRIL 20 MG TAB PO SCH (08:11)
[2017-03-20] MEDS: SENNOSIDES 8.6 MG TAB PO PRN (09:24)
--- NOTE | 2017-03-20 10:49 | HHI.PR ---
Subjective Remarks Follow up Dandy-walker syndrome. Patient seen and examined, lying in bed comfortably. Sitter at bedside. Denies any new changes or complaints. Denies any pain, nausea, vomiting, diarrhea or dysuria. Eating well. Ambulating well. VSS. Afebrile. Objective Vitals Vital Signs Date Time Temp Pulse Resp B/P (MAP) Pulse Ox O2 Delivery O2 Flow Rate FiO2 03/20/17 08:00 97.0 50 16 114/66 (82) 97 03/19/17 21:01 97.9 86 16 126/87 (100) 97 I/O 03/19/17 03/19/17 03/19/17 03/20/17 03/20/17 03/20/17 07:00 15:00 23:00 07:00 15:00 23:00 Intake Total 480 ml Balance 480 ml Intake Oral 480 ml # Voids 3 1 Objective Remarks GENERAL: Well-nourished, well-developed male patient. Awake and alert. SKIN: Warm and dry. No rash. HEENT: Normocephalic. Atraumatic. Pupils equal and round. No scleral icterus. No injection or drainage. No nasal bleeding or discharge. Mucous membranes pink and moist. NECK: Supple. Trachea midline. CARDIOVASCULAR: Regular rate and rhythm. S1, S2 noted. No murmur appreciated. RESPIRATORY: No accessory muscle use. Clear to auscultation. Breath sounds equal bilaterally. GASTROINTESTINAL: Abdomen soft, non-tender, nondistended. Normoactive bowel sounds x4. No guarding noted. MUSCULOSKELETAL: No obvious deformities. Extremities without clubbing, cyanosis , or edema. NEUROLOGICAL: Awake and alert. No obvious cranial nerve deficits. Motor grossly within normal limits. 5/5 muscle strength in bilateral upper and lower extremities. Normal speech. PSYCHIATRIC: Appropriate mood and affect. Procedures None. 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 Patient was initially Youssef acted and treated by psychiatrist, Mikael act was lifted and transferred to medical service. 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 Reported mental capacity of 89 year-old. Patient is a flight risk, patient has to have sitter ordered Hypertension, stable Lisinopril 20 mg daily Norvasc 10 mg daily Continue to monitor BP trends. Hold parameters for medications. DVT Prophylaxis: Low risk, patient ambulating. Medical records reviewed and no new changes to current plan. Will continue to follow clinically. CM assisting in dc needs. Discharge Planning Case management assisting. Shirin Raza Mar 20, 2017 10:49
[2017-03-20 20:00] VITALS: BP 122/86; PULSE 87; RESP 18; TEMP 98.2; O2SAT 98
[2017-03-21 08:00] VITALS: BP_SYST 119; BP_SYST 133; BP_DIAS 78; BP_DIAS 91; PULSE 56; PULSE 69; RESP 16; TEMP 97.1; TEMP 98.4; O2SAT 99
[2017-03-21] MEDS: LISINOPRIL 20 MG TAB PO SCH (08:11)
--- NOTE | 2017-03-21 15:00 | HHI.PR ---
Subjective Remarks Follow up Dandy walker syndrome. Patient seen and examined. Ambulating well, walking halls with sitter. Denies any new acute complaints. Denies any pain. No change in clinical condition. Objective Vitals Vital Signs Date Time Temp Pulse Resp B/P (MAP) Pulse Ox O2 Delivery O2 Flow Rate FiO2 03/21/17 08:00 97.1 69 16 133/91 (105) 99 03/21/17 08:00 98.4 56 16 119/78 (92) 99 03/20/17 20:00 98.2 87 18 122/86 (98) 98 I/O 03/20/17 03/20/17 03/20/17 03/21/17 03/21/17 03/21/17 07:00 15:00 23:00 07:00 15:00 23:00 Intake Total 600 ml Balance 600 ml Intake Oral 600 ml # Voids 3 3 Objective Remarks GENERAL: Well-nourished, well-developed male patient. Awake and alert. SKIN: Warm and dry. No rash. HEENT: Normocephalic. Atraumatic. Pupils equal and round. No scleral icterus. No injection or drainage. No nasal bleeding or discharge. Mucous membranes pink and moist. NECK: Supple. Trachea midline. CARDIOVASCULAR: Regular rate and rhythm. S1, S2 noted. No murmur appreciated. RESPIRATORY: No accessory muscle use. Clear to auscultation. Breath sounds equal bilaterally. GASTROINTESTINAL: Abdomen soft, non-tender, nondistended. Normoactive bowel sounds x4. No guarding noted. MUSCULOSKELETAL: No obvious deformities. Extremities without clubbing, cyanosis , or edema. NEUROLOGICAL: Awake and alert. No obvious cranial nerve deficits. Motor grossly within normal limits. 5/5 muscle strength in bilateral upper and lower extremities. Normal speech. PSYCHIATRIC: Appropriate mood and affect. Procedures None. 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 Patient was initially Youssef acted and treated by psychiatrist, Mikael act was lifted and transferred to medical service. 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 Reported mental capacity of 89 year-old. Patient is a flight risk, patient has to have sitter ordered Hypertension, stable Lisinopril 20 mg daily Norvasc 10 mg daily Continue to monitor BP trends. Hold parameters for medications. DVT Prophylaxis: Low risk, patient ambulating. Medical records reviewed and no new changes to current plan. Will continue to follow clinically. CM assisting in dc needs. Discharge Planning Case management assisting. Shirin Raza Mar 21, 2017 15:00
[2017-03-21 20:00] VITALS: BP 110/53; PULSE 57; RESP 16; TEMP 97.6; O2SAT 94
[2017-03-22 08:00] VITALS: BP 131/70; PULSE 59; RESP 16; TEMP 97.9; O2SAT 98
[2017-03-22] MEDS: LISINOPRIL 20 MG TAB PO SCH (08:35)
--- NOTE | 2017-03-22 11:11 | HHI.PR ---
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 Patient has any new complaints. No change in clinical status. Awaiting case management for discharge planning Objective Vitals Vital Signs Date Time Temp Pulse Resp B/P (MAP) Pulse Ox O2 Delivery O2 Flow Rate FiO2 03/22/17 08:00 97.9 59 16 131/70 (90) 98 03/21/17 20:00 97.6 57 16 110/53 (72) 94 I/O 03/21/17 03/21/17 03/21/17 03/22/17 03/22/17 03/22/17 07:00 15:00 23:00 07:00 15:00 23:00 Intake Total 1080 ml 240 ml Balance 1080 ml 240 ml Intake Oral 1080 ml 240 ml # Voids 3 4 2 # Bowel Movements 0 0 Objective Remarks GENERAL: Well-developed, well-nourished, in no acute distress. alert HEENT: Head is normocephalic without any lesions or masses noted. Facial features are symmetric. Eyes: Extraocular muscles are intact. Conjunctivae were clear. NECK: Trachea midline no deviation. No JVD CARDIAC: Regular rhythm, regular rate. S1/S2 are heard. No murmurs gallops or rubs. LUNGS: Clear to auscultation bilaterally. No wheeze, rhonchi or rales. No use of accessory muscles on inspiration or expiration. ABDOMEN: Soft, nontender. Nondistended. Bowel sounds heard in all 4 quadrants. No organomegaly or masses. Negative rebound, negative guarding EXTREMITIES: No edema, pulses are equal bilaterally. No cyanosis or clubbing NEUROLOGY: Mood and affect appear appropriate. Cranial nerves II through XII grossly intact. Moving all extremities, Procedures None. Urinary Catheter: No Vascular Central Line Catheter: No A/P Assessment and Plan Total Self Care Deficit: Case management trying to find appropriate placement. 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 Reported mental capacity of 89 year-old. Patient is a flight risk, patient has to have sitter ordered Hypertension, stable Lisinopril 20 mg daily Norvasc 10 mg daily DVT Prophylaxis: Low risk, patient ambulating Record reviewed, awaiting case management for discharge. no change in treatment plan, Discharge Planning Discharge once arrangements made by case management Yaniv Simmons Mar 22, 2017 11:11
[2017-03-22 20:00] VITALS: BP 117/78; PULSE 88; RESP 20; TEMP 97.4; O2SAT 98
[2017-03-23 08:00] VITALS: BP 128/75; PULSE 97; RESP 14; TEMP 98.7; O2SAT 90
[2017-03-23] MEDS: LISINOPRIL 20 MG TAB PO SCH (08:37)
--- NOTE | 2017-03-23 08:46 | HHI.PR ---
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 Patient has any new complaints. No change in clinical status. Awaiting case management for discharge planning Objective Vitals Vital Signs Date Time Temp Pulse Resp B/P (MAP) Pulse Ox O2 Delivery O2 Flow Rate FiO2 03/22/17 20:00 97.4 88 20 117/78 (91) 98 I/O 03/22/17 03/22/17 03/22/17 03/23/17 03/23/17 03/23/17 07:00 15:00 23:00 07:00 15:00 23:00 Intake Total 240 ml 480 ml 720 ml Balance 240 ml 480 ml 720 ml Intake Oral 240 ml 480 ml 720 ml # Voids 2 4 1 # Bowel Movements 0 0 Objective Remarks GENERAL: Well-developed, well-nourished, in no acute distress. alert HEENT: Head is normocephalic without any lesions or masses noted. Facial features are symmetric. Eyes: Extraocular muscles are intact. Conjunctivae were clear. NECK: Trachea midline no deviation. No JVD CARDIAC: Regular rhythm, regular rate. S1/S2 are heard. No murmurs gallops or rubs. LUNGS: Clear to auscultation bilaterally. No wheeze, rhonchi or rales. No use of accessory muscles on inspiration or expiration. ABDOMEN: Soft, nontender. Nondistended. Bowel sounds heard in all 4 quadrants. No organomegaly or masses. Negative rebound, negative guarding EXTREMITIES: No edema, pulses are equal bilaterally. No cyanosis or clubbing NEUROLOGY: Mood and affect appear appropriate. Cranial nerves II through XII grossly intact. Moving all extremities, Procedures None. Urinary Catheter: No Vascular Central Line Catheter: No A/P Assessment and Plan Total Self Care Deficit: Case management trying to find appropriate placement. 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 Reported mental capacity of 89 year-old. Patient is a flight risk, patient has to have sitter ordered Hypertension, stable Lisinopril 20 mg daily Norvasc 10 mg daily DVT Prophylaxis: Low risk, patient ambulating Record reviewed, no change in treatment plan, awaiting case management for discharge. Discharge Planning Discharge once arrangements made by case management Yaniv Simmons Mar 23, 2017 08:46
[2017-03-23 20:00] VITALS: BP 116/77; PULSE 90; RESP 17; TEMP 97.7; O2SAT 96
[2017-03-24 08:41] VITALS: BP 119/55; PULSE 66; RESP 15; TEMP 98.6; O2SAT 98
[2017-03-24] MEDS: LISINOPRIL 20 MG TAB PO SCH (08:56)
--- NOTE | 2017-03-24 10:57 | HHI.PR ---
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 Patient denies any new complaints. No change in clinical status. Vital signs are stable, afebrile Objective Vitals Vital Signs Date Time Temp Pulse Resp B/P (MAP) Pulse Ox O2 Delivery O2 Flow Rate FiO2 03/24/17 08:41 98.6 66 15 119/55 (76) 98 03/23/17 20:00 97.7 90 17 116/77 (90) 96 I/O 03/23/17 03/23/17 03/23/17 03/24/17 03/24/17 03/24/17 07:00 15:00 23:00 07:00 15:00 23:00 Intake Total 720 ml 236 ml 814 ml 280 ml Balance 720 ml 236 ml 814 ml 280 ml Intake Oral 720 ml 236 ml 814 ml 280 ml # Voids 1 2 # Bowel Movements 0 0 Objective Remarks GENERAL: Well-developed, well-nourished, in no acute distress. alert HEENT: Head is normocephalic without any lesions or masses noted. Facial features are symmetric. Eyes: Extraocular muscles are intact. Conjunctivae were clear. NECK: Trachea midline no deviation. No JVD CARDIAC: Regular rhythm, regular rate. S1/S2 are heard. No murmurs gallops or rubs. LUNGS: Clear to auscultation bilaterally. No wheeze, rhonchi or rales. No use of accessory muscles on inspiration or expiration. ABDOMEN: Soft, nontender. Nondistended. Bowel sounds heard in all 4 quadrants. No organomegaly or masses. Negative rebound, negative guarding EXTREMITIES: No edema, pulses are equal bilaterally. No cyanosis or clubbing NEUROLOGY: Mood and affect appear appropriate. Cranial nerves II through XII grossly intact. Moving all extremities, Procedures None. Urinary Catheter: No Vascular Central Line Catheter: No A/P Assessment and Plan Total Self Care Deficit: Case management trying to find appropriate placement. 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 Reported mental capacity of 89 year-old. Patient is a flight risk, patient has to have sitter ordered Hypertension, stable Lisinopril 20 mg daily Norvasc 10 mg daily DVT Prophylaxis: Low risk, patient ambulating Record reviewed, awaiting case management for discharge. no change in treatment plan, Discharge Planning Discharge once arrangements made by case management Yaniv Simmons Mar 24, 2017 10:57
[2017-03-24 20:00] VITALS: BP 116/60; PULSE 62; RESP 16; TEMP 96.5; O2SAT 94
[2017-03-24] MEDS: SENNOSIDES 8.6 MG TAB PO PRN (20:26)
[2017-03-25 08:00] VITALS: BP 129/77; PULSE 83; RESP 14; TEMP 98.7; O2SAT 97
[2017-03-25] MEDS: LISINOPRIL 20 MG TAB PO SCH (08:08)
--- NOTE | 2017-03-25 08:29 | HHI.PR ---
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 Patient denies any new complaints. No change in clinical status. Vital signs are stable, afebrile. Awaiting case management for discharge planning Objective Vitals Vital Signs Date Time Temp Pulse Resp B/P (MAP) Pulse Ox O2 Delivery O2 Flow Rate FiO2 03/24/17 20:00 96.5 62 16 116/60 (78) 94 03/24/17 08:41 98.6 66 15 119/55 (76) 98 I/O 03/24/17 03/24/17 03/24/17 03/25/17 03/25/17 03/25/17 07:00 15:00 23:00 07:00 15:00 23:00 Intake Total 280 ml 800 ml 260 ml Balance 280 ml 800 ml 260 ml Intake Oral 280 ml 800 ml 260 ml # Voids 4 2 # Bowel Movements 0 Objective Remarks GENERAL: Well-developed, well-nourished, in no acute distress. alert HEENT: Head is normocephalic without any lesions or masses noted. Facial features are symmetric. Eyes: Extraocular muscles are intact. Conjunctivae were clear. NECK: Trachea midline no deviation. No JVD CARDIAC: Regular rhythm, regular rate. S1/S2 are heard. No murmurs gallops or rubs. LUNGS: Clear to auscultation bilaterally. No wheeze, rhonchi or rales. No use of accessory muscles on inspiration or expiration. ABDOMEN: Soft, nontender. Nondistended. Bowel sounds heard in all 4 quadrants. No organomegaly or masses. Negative rebound, negative guarding EXTREMITIES: No edema, pulses are equal bilaterally. No cyanosis or clubbing NEUROLOGY: Mood and affect appear appropriate. Cranial nerves II through XII grossly intact. Moving all extremities, Procedures None. Urinary Catheter: No Vascular Central Line Catheter: No A/P Assessment and Plan Total Self Care Deficit: Case management trying to find appropriate placement. 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 Reported mental capacity of 89 year-old. Patient is a flight risk, patient has to have sitter ordered Hypertension, stable Lisinopril 20 mg daily Norvasc 10 mg daily DVT Prophylaxis: Low risk, patient ambulating Record reviewed, no change in treatment plan, awaiting case management for discharge. Discharge Planning Discharge once arrangements made by case management Yaniv Simmons Mar 25, 2017 08:29
[2017-03-25 20:00] VITALS: BP 128/85; PULSE 97; RESP 18; TEMP 98.5; O2SAT 97
[2017-03-25] MEDS ORDERED: HALOPERIDOL LACTATE 5 MG/ML AMP IM ONE (20:30)
[2017-03-26] VITALS (29 sets, daily range): BP systolic 101–191; BP diastolic 43–97; PULSE 98–166; RESP 12–42; TEMP 96.8–99.1; O2SAT 94–100
[2017-03-26 01:58] LABS: AUTOMATED NEUTROPHIL # 23.2 TH/MM3 (1.8-7.7); BASOPHIL # 0.7 TH/MM3 (0-0.2); BASOPHIL % 2.5 % (0.0-2.0); HEMATOCRIT 41.7 % (39.0-51.0); HEMO FLAGS DIFF FINAL; LYMPH % 4.3 % (9.0-44.0); LYMPHOCYTE # 1.2 TH/MM3 (1.0-4.8); MEAN CELL VOLUME 78.9 FL (80.0-100.0); MEAN CORPUSCULAR HEMOGLOBIN 26.1 PG (27.0-34.0); MEAN CORPUSCULAR HGB CONC 33.1 % (32.0-36.0); MONO % 7.8 % (0.0-8.0); NEUT % 85.4 % (16.0-70.0); PLATELET COUNT 221 TH/MM3 (150-450); RED BLOOD COUNT 5.28 MIL/MM3 (4.50-5.90); RED CELL DISTRIBUTION WIDTH 12.7 % (11.6-17.2); WHITE BLOOD COUNT 27.2 TH/MM3 (4.0-11.0)
[2017-03-26 02:03] LABS: CHLORIDE 105 MEQ/L (98-107); POTASSIUM 3.4 MEQ/L (3.5-5.1); SODIUM (NA) 139 MEQ/L (136-145)
[2017-03-26 02:06] LABS: ANION GAP 12 MEQ/L (5-15); BICARBONATE 21.9 MEQ/L (21.0-32.0); BLOOD UREA NITROGEN 18 MG/DL (7-18)
[2017-03-26 02:09] LABS: ALT (GPT) 90 U/L (12-78); AST (GOT) 51 U/L (15-37); GLOMERULAR FILTRATION RATE 83 ML/MIN (>89)
[2017-03-26 02:11] LABS: TOTAL BILIRUBIN ADULT 0.2 MG/DL (0.2-1.0)
[2017-03-26 02:12] LABS: ALKALINE PHOSPHATASE 70 U/L (45-117)
--- NOTE | 2017-03-26 03:05 | RADRPT ---
EXAM DATE/TIME: 03/26/2017 02:55 [facility] COMPARISON: CHEST SINGLE AP, October 12, 2016, 16:01. INDICATIONS : Fever. MEDICAL HISTORY : None. SURGICAL HISTORY : None. ENCOUNTER: Initial ACUITY: 1 day PAIN SCORE: Non-responsive. LOCATION: Bilateral chest FINDINGS: A single view of the chest demonstrates the lungs to be symmetrically aerated without evidence of mas s, infiltrate or effusion. The cardiomediastinal contours are unremarkable. Osseous structures are intact. CONCLUSION: Normal examination. Guerrero Grey MD on March 26, 2017 at 3:03 Board Certified Radiologist. This report was verified electronically.
[2017-03-26 03:09] LABS: BLOOD, URINE TRACE (NEG); GLUCOSE,URINE 1000 OR GREATER mg/dL (NEG); KETONE, URINE NEG (NEG); NITRITE,URINE NEG (NEG)
[2017-03-26 03:14] LABS: RBC, URINE 0-2 /hpf (0-3); SQUAMOUS EPITHELIAL CELL URINE 0-5 /hpf (0-5); URINE COLOR YELLOW (YELLW/STRAW); WBC, URINE 0-2 /hpf (0-5)
[2017-03-26 03:15] LABS: COMMENT (UR) CULT NOT INDICATED; CULTURE IF INDICATED CULT NOT INDICATED
[2017-03-26] MEDS ORDERED: SODIUM CHLOR 0.9% 1000 ML INJ 1,000 ML IV SCH (03:45)
[2017-03-26] MEDS ORDERED: Vancomycin Consult Pharmacy 1 EA OTHER SCH (03:45)
[2017-03-26] MEDS: PIPERACIL-TAZO 3.375 GM PREMIX 50 ML IV SCH ×4 (04:53→22:44)
[2017-03-26] MEDS ORDERED: SODIUM CHLOR 0.9% 1000 ML INJ 1,000 ML IV ONE (05:15)
[2017-03-26] MEDS: VANCOMYCIN INJ 800 MG in SODIUM CHLOR 0.9% 250 ML INJ 250 ML IV SCH ×2 (05:56→17:21)
[2017-03-26] MEDS ORDERED: VANCOMYCIN INJ 800 MG in SODIUM CHLOR 0.9% 250 ML INJ 250 ML IV SCH (06:00)
[2017-03-26 06:24] LABS: LACTIC ACID GHOST NOT REPORTABLE
[2017-03-26] MEDS ORDERED: DEXTROSE 50% IN WATER 50 ML VIAL(D50) IV PUSH PRN (07:45)
[2017-03-26] MEDS ORDERED: GLUCAGON 1 MG/ML VIAL OTHER PRN (07:45)
[2017-03-26] MEDS: INSULIN ASPART SUPPLEMENTAL SCALE SQ SCH ×4 (08:00→19:58)
[2017-03-26 08:27] LABS: BETA-HYDROXYBUTYRATE 0.12 MMOL/L (0.00-0.39)
[2017-03-26 08:32] LABS: CREATINE KINASE 2606 U/L (39-308)
[2017-03-26 08:47] LABS: CKMB 10.4 NG/ML (0.5-3.6)
[2017-03-26] MEDS: LISINOPRIL 20 MG TAB PO SCH (09:00)
--- NOTE | 2017-03-26 09:11 | RADRPT ---
EXAM DATE/TIME: 03/26/2017 08:55 [place] COMPARISON: No previous studies available for comparison. INDICATIONS : cHANGE IN MENTAL STATUS. RADIATION DOSE: 62.40 CTDIvol (mGy) MEDICAL HISTORY : Hypertension. Gil Walker Syndrome SURGICAL HISTORY : UNKNOWN ENCOUNTER: Initial ACUITY: 2 days PAIN SCALE: 0/10 LOCATION: cranial TECHNIQUE: Multiple contiguous axial images were obtained of the head. Using automated exposure control and adj ustment of the mA and/or kV according to patient size, radiation dose was kept as low as reasonably a chievable to obtain optimal diagnostic quality images. DICOM format image data is available electro nically for review and comparison. FINDINGS: CEREBRUM: The ventricles are normal for age. No evidence of midline shift, mass lesion, hemorrhage or acute in farction. No extra-axial fluid collections are seen. POSTERIOR FOSSA: There is focal enlargement of the subarachnoid space in the inferior posterior portion of the posteri or fossa consistent with a major cisterna magna. The cerebellum and brainstem are intact. The 4th ve ntricle is midline. The cerebellopontine angle is unremarkable. EXTRACRANIAL: The visualized portion of the orbits is intact. SKULL: The calvaria is intact. No evidence of skull fracture. CONCLUSION: 1. Prominent retrocerebellar CSF space is consistent with incidental magna cisterna magna. 2. No acute intracranial abnormality. Charles Hopkins MD on March 26, 2017 at 9:05 Board Certified Radiologist. This report was verified electronically.
[2017-03-26] MEDS ORDERED: LORazepam 2 MG/ML VIAL IV PUSH PRN (09:15)
[2017-03-26] MEDS: NS + KCL 20 MEQ INJ 1,000 ML IV SCH ×2 (11:10→17:00)
[2017-03-26 12:48] LABS: HEMOGLOBIN A1b 0.9 %; HEMOGLOBIN Ao 84.2 %; HEMOGLOBIN F 1.2 %; HEMOGLOBIN P3 3.8 %
--- NOTE | 2017-03-26 13:12 | EKG ---
Date Performed: 03/26/2017 Time Performed: 01:27:06 PTAGE: 22 years EKG: SINUS TACHYCARDIA NONSPECIFIC T-WAVE ABNORMALITY ABNORMAL RHYTHM ECG PREVIOUS TRACING : 10/31/2016 15.50 Since previous tracing, T-wave changes are new and heart ra te is faster. DOCTOR: Andi Ibarra Interpretating Date/Time 03/26/2017 13:12:09
--- NOTE | 2017-03-26 13:13 | EKG ---
Date Performed: 03/26/2017 Time Performed: 07:45:39 PTAGE: 22 years EKG: SINUS TACHYCARDIA ABNORMAL RHYTHM ECG INTERPRETATION BASED ON A DEFAULT AGE OF 39 YEARS PREVIOUS TRACING 03/26/2017 Since previous tracing, T-wave changes have improved. DOCTOR: Andi Ibarra Interpretating Date/Time 03/26/2017 13:12:38
[2017-03-26] MEDS ORDERED: ENALAPRILAT 1.25 MG/ML VIAL IV PUSH PRN (13:30)
--- NOTE | 2017-03-26 13:36 | HHI.PR ---
Subjective Remarks Patient seen multiple times today in reference to acute changes overnight. Apparently the patient had change in mentation last evening and became very aggressive and started streaking through the hallway. Patient was given Haldol at that time which did control his agitation, however patient developed further medical issues to include systemic inflammatory response syndrome, diaphoresis, dystonia, lactic acidosis, leukocytosis, rhabdomyolysis. Patient was transferred to the ICU with intermediate care. Upon review of medical records it would also appear that the patient had the same type of reaction to Haldol back on 10/09/2016. At that time patient was also given Haldol and had acute elevation of leukocytosis, rhabdomyolysis, lactic acidosis, hyperglycemia. At this time will change patient's adverse reactions with Haldol in the computer so no more Haldol can be given. Upon review of records it does indicate that his last episode the rhabdomyolysis lasted for approximately 10 days. Patient also had EKG done at that time which did show abnormal EKG with intermixed theta activity with alpha background during wakefulness but no epileptiform features. Objective Vitals Vital Signs Date Time Temp Pulse Resp B/P (MAP) Pulse Ox O2 Delivery O2 Flow Rate FiO2 03/26/17 13:00 120 23 133/77 (95) 96 03/26/17 12:30 130 23 95 03/26/17 12:30 130 23 95 03/26/17 12:29 130 29 139/55 (83) 96 03/26/17 12:20 144 26 191/83 (119) 95 03/26/17 12:10 124 27 111/43 (65) 97 03/26/17 12:00 142 33 158/75 (102) 96 03/26/17 11:50 30 149/63 (91) 96 03/26/17 11:40 114 17 136/81 (99) 98 03/26/17 11:30 99.1 106 16 112/51 (71) 99 03/26/17 11:20 166 33 163/65 (97) 99 03/26/17 11:10 114 22 120/60 (80) 98 03/26/17 11:10 114 22 120/60 (80) 98 03/26/17 11:00 138 42 163/77 (105) 95 03/26/17 11:00 138 42 163/77 (105) 95 03/26/17 10:50 134 36 149/60 (89) 96 03/26/17 10:50 134 36 149/60 (89) 96 03/26/17 10:35 106 15 150/80 (103) 98 03/26/17 10:35 106 15 150/80 (103) 98 03/26/17 10:30 144 23 183/81 (115) 99 03/26/17 10:30 144 23 183/81 (115) 99 03/26/17 10:20 156 33 185/73 (110) 100 03/26/17 10:20 156 33 185/73 (110) 100 03/26/17 10:07 132 29 166/97 (120) 97 03/26/17 10:07 132 29 166/97 (120) 97 03/26/17 10:00 36 97 03/26/17 10:00 98.3 36 97 03/26/17 08:00 98.2 102 20 133/66 (88) 97 03/26/17 06:42 96.8 116 20 114/58 (76) 96 03/26/17 06:37 98.3 116 20 128/67 (87) 99 03/26/17 03:38 97.9 03/25/17 20:00 98.5 97 18 128/85 (99) 97 I/O 03/25/17 03/25/17 03/25/17 03/26/17 03/26/17 03/26/17 07:00 15:00 23:00 07:00 15:00 23:00 Intake Total 260 ml 760 ml 500 ml Balance 260 ml 760 ml 500 ml Intake Oral 260 ml 760 ml IV Total 500 ml # Voids 2 3 5 # Bowel Movements 0 1 5 Result Diagram: 03/26/176 03/26/17145 Objective Remarks GENERAL: Well-developed, well-nourished, in mild distress with episodes of dystonia, diaphoresis, tachycardia. Patient is mildly alert. He does have episodes of difficulty in speaking. HEENT: Head is normocephalic without any lesions or masses noted. Facial features are symmetric. Eyes: Extraocular muscles are intact. Conjunctivae were clear. There is episodes of possible lipsmacking, eyes deviating to the left and upward direction NECK: Trachea midline no deviation. No JVD CARDIAC: Regular rhythm, sinus tachycardia. S1/S2 are heard. No murmurs gallops or rubs. LUNGS: Clear to auscultation bilaterally. No wheeze, rhonchi or rales. No use of accessory muscles on inspiration or expiration. ABDOMEN: Soft, nontender. Nondistended. Bowel sounds heard in all 4 quadrants. No organomegaly or masses. Negative rebound, negative guarding EXTREMITIES: No edema, pulses are equal bilaterally. No cyanosis or clubbing NEUROLOGY: Patient with obvious episodic opisthotonus, jaw dystonia, retrocollis , hyperextension of the arms and legs, with associated tachycardia, diaphoresis Procedures None. Urinary Catheter: No Vascular Central Line Catheter: No A/P Assessment and Plan Systemic inflammatory response syndrome, likely due to adverse reaction to Haldol Patient with leukocytosis, tachycardia, lactic acidosis, rhabdomyolysis, diaphoresis. Acute neurological changes. No signs of infection this time Possible tardive dyskinesia from Haldol Records were reviewed and patient had similar episode of this back in September 2016 when he was also given a dose of Haldol Patient transferred ICU with intermediate care IV fluids started, CT of the brain indicates prominent retrocerebellar cerebral CSF space which are consistent with magna cisterna magna Chest x-rays clear, urinalysis is without any signs of infection Blood cultures have been taken Patient started on empirical antibiotics include vancomycin and Zosyn EEG has been requested Consult neurology for recommendations Ativan as needed for seizures Discussed with Psychiatry, Dr Schmitt, states his symptoms is classic acute dystonia, recommended Benadryl 50 mg IM single dose Rhabdomyolysis continue IV fluids Monitor CPK Hyperglycemia with increased urine glucose Obtain hemoglobin A1c Start Accu-Cheks with sliding scale insulin Total Self Care Deficit: Case management trying to find appropriate placement. 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 Reported mental capacity of 89 year-old. Patient is a flight risk, patient has to have sitter ordered Hypertension, stable Lisinopril 20 mg daily Norvasc 10 mg daily DVT Prophylaxis: Low risk, patient ambulating Discharge Planning Discharge once arrangements made by case management Yaniv Simmons Mar 26, 2017 13:36
[2017-03-26 13:48] LABS: AUTOMATED NEUTROPHIL # 22.1 TH/MM3 (1.8-7.7); BASOPHIL % 0.1 % (0.0-2.0); EOSINOPHIL % 0.1 % (0.0-4.0); HEMATOCRIT 40.7 % (39.0-51.0); LYMPH % 2.2 % (9.0-44.0); LYMPHOCYTE # 0.5 TH/MM3 (1.0-4.8); MEAN CELL VOLUME 79.4 FL (80.0-100.0); MEAN CORPUSCULAR HEMOGLOBIN 25.9 PG (27.0-34.0); MEAN CORPUSCULAR HGB CONC 32.6 % (32.0-36.0); MONO % 5.8 % (0.0-8.0); NEUT % 91.8 % (16.0-70.0); PLATELET COUNT 196 TH/MM3 (150-450); RED BLOOD COUNT 5.12 MIL/MM3 (4.50-5.90); RED CELL DISTRIBUTION WIDTH 13.1 % (11.6-17.2)
[2017-03-26 13:52] LABS: HEMO FLAGS DIFF FINAL
[2017-03-26 14:34] LABS: CKMB 17.9 NG/ML (0.5-3.6)
[2017-03-26] MEDS ORDERED: diphenhydrAMINE HCL 50 MG/ML VIAL IM ONE (15:00)
[2017-03-26] MEDS ORDERED: PHENYTOIN INJ 1,000 MG in SODIUM CHLORIDE 0.9% INJ 100 ML IV ONE (20:00)
[2017-03-26 21:18] LABS: CKMB 22.3 NG/ML (0.5-3.6)
--- NOTE | 2017-03-26 21:43 | MB ---
cc: BUBBA SWENSON MD DATE OF CONSULTATION 03/26/17 REASON FOR CONSULTATION Seizures. HISTORY OF PRESENT ILLNESS The patient is mentally challenged, under developed and cannot provided history , thus, history was obtained from registered nurse and medical records. Mr. Cabello is a 22 year old male whoo has a diagnosis of Dandy Walker malformation and he has been in the hospital for a long time because he lived in a halfway and tried to escape and he had no family and he was Youssef Acted and admitted to the hospital. Apparently, from the review of the notes the patient had a change in mental status last evening and became very aggressive starting streaking through the hallway. He received Haldol at this time which controlled his agitation. As per the note, the patient developed further medical issues and systemic inflammatory response syndrome, diaphoresis , dystonia, lactic acidosis, leukocytosis, Rhabdomyolysis. The patient was admitted to the Intensive Care Unit for further management. During the encounter and while I was reviewing the medical records and discussing with the registered nurse, the patient developed an episode. I witnessed this episode and it was a tonic seizure. The patient sustained a head jerking to the right, closed eyes, foaming from the mouth and stiff posture unresponsive during the episode and he was confused for a short while afterwards. On a previous episode the nurse reported that patient lost control of his bladder. The patient was given Benadryl IM. Apparently he calmed down. After this witnessed seizure, the patient received 1 mg of Ativan, loading dose of Dilantin and a maintenance dose of 100mg mg three times daily. And electroencephalogram revealed bilateral occipital sharp waves with slowing that may indicate epileptogenicity. REVIEW OF SYSTEMS Unable to obtain but review of medical records a 12 point review of systems is negative except what is stated in the History of Present Illness. PAST MEDICAL HISTORY Review of medical records, 1. Hypertension 2. Dandy Walker malformation PAST SURGICAL HISTORY Unremarkable ALLERGIES NO KNOWN DRUG ALLERGIES MEDICATIONS Review of medication was done. FAMILY HISTORY Does not know family history SOCIAL HISTORY Review of records, no reported tobacco, alcohol or illicit drug abuse. PHYSICAL EXAMINATION GENERAL: Awake, alert, sitting eating his dinner. HEENT: Normocephalic, atraumatic. Intact hearing. Intact vision. CARDIOVASCULAR: Regular rate and rhythm. RESPIRATORY: Clear to auscultation MUSCULOSKELETAL: Without clubbing or cyanosis. NEUROLOGIC: Awake, alert, oriented to person not place or time. Has nasal tone to the voice. Mild dysarthria. Limited knowledge. Limited comprehension. Unable to eat or write. Moves all extremities, unable to assess with accuracy motor, sensory or cerebellar function because of lack of cooperation due to his cognitive abnormality. PSYCHIATRIC: Calm, cooperative, pleasant. DIAGNOSTIC IMAGING Head CT without contrast revealed prominent CSF space consistent with incidental foramen magna. No acute intracranial abnormality. LABORATORY DATA WBC 24, hemoglobin 13.3, platelets 196. Sodium 139, potassium 3.4, random glucose 365, lactic acid 5.3, calcium 9.4, AST 51, ALT 90. Total CK 5,360. TSH 0.26. IMPRESSION 1. Seizure disorder. 2. The patient had a similar episode in September 2016,to Haldol. 3. Rhabdomyolysis 4. Hyperglycemic 5. Dandy- Walker syndrome 6. Hyperthyroidism PLAN 1. Neuro check q 1 hourly 2. Loaded with Dilantin 15/mg/Kg iv 3. Maintain his dose of Dilantin 100 mg q 8 4. Obtain Dilantin level next a.m. 5. Seizure precautions 6. Continue supportive medical therapy 7. Avoid Haldol, other Dopaminergic medications and Metoclopramide 8. Deep venous thrombosis prophylaxis 9. GI prophylaxis Thank you for the opportunity to participate in the care of your patient. MD JAXSON Virgen/ /9:04 PM /9:17 PM [facility]O
--- NOTE | 2017-03-26 21:59 | MG ---
cc: BUBBA SWENSON MD Lab No: Date: 03/26/17 Age: Sex: M Race: DATE OF [address] Simmons MEDICAL HISTORY History of Michael-Walker syndrome, hypertension, intellectual disability, mental retardation. The patient became very aggressive and given Haldol, developed diaphoresis, dystonia and lactic acidosis. DESCRIPTION There is generalized slowing in the theta range.The background rhythm is 5-6 Hz theta. There is excessive movement artifact. During the recording, the patient transitioned to stage II sleep with appearance of K complexes. There were intermittent sharp like activity in bilateral occipital regions. Hyperventilation was omitted. Photic stimulation did elicit a change in rhythmicity. There were no electrographic seizures. INTERPRETATION This is an abnormal awake, drowsy and asleep EEG. There is generalized background slowing that may indicate an encephalopathic abnormality. There were occipital sharp like activity intermittent throughout the recording that may be epileptogenic, with no ictal activity or electrographic seizures. Clinical correlation is recommended. MD JAXSON Virgen/ /8:37 PM /9:51 PM [email or web address]
[2017-03-26 22:32] LABS: LACTIC ACID GHOST NOT REPORTABLE
[2017-03-26] MEDS: PHENYTOIN INJ 100 MG/2 ML VIAL IV PUSH SCH (22:35)
[2017-03-27] VITALS (10 sets, daily range): BP systolic 117–121; BP diastolic 56–74; PULSE 80–120; RESP 13–21; TEMP 97.6–99.1; O2SAT 94–99
[2017-03-27] MEDS: PIPERACIL-TAZO 3.375 GM PREMIX 50 ML IV SCH (05:09)
[2017-03-27] MEDS: PHENYTOIN INJ 100 MG/2 ML VIAL IV PUSH SCH (05:32)
[2017-03-27] MEDS: NS + KCL 20 MEQ INJ 1,000 ML IV SCH ×3 (05:43→18:39)
[2017-03-27] MEDS: VANCOMYCIN INJ 800 MG in SODIUM CHLOR 0.9% 250 ML INJ 250 ML IV SCH (06:15)
[2017-03-27 06:49] LABS: CHLORIDE 111 MEQ/L (98-107); POTASSIUM 3.9 MEQ/L (3.5-5.1); SODIUM (NA) 142 MEQ/L (136-145)
[2017-03-27 07:03] LABS: ALKALINE PHOSPHATASE 58 U/L (45-117); ALT (GPT) 78 U/L (12-78); ANION GAP 10 MEQ/L (5-15); AST (GOT) 130 U/L (15-37); BICARBONATE 21.4 MEQ/L (21.0-32.0); BLOOD UREA NITROGEN 11 MG/DL (7-18); GLOMERULAR FILTRATION RATE 91 ML/MIN (>89); TOTAL BILIRUBIN ADULT 0.4 MG/DL (0.2-1.0)
[2017-03-27 07:57] LABS: AUTOMATED NEUTROPHIL # 19.4 TH/MM3 (1.8-7.7); BASOPHIL % 0.2 % (0.0-2.0); EOSINOPHIL # 0.2 TH/MM3 (0-0.4); EOSINOPHIL % 0.8 % (0.0-4.0); HEMATOCRIT 38.3 % (39.0-51.0); LYMPH % 5.1 % (9.0-44.0); LYMPHOCYTE # 1.1 TH/MM3 (1.0-4.8); MEAN CELL VOLUME 79.9 FL (80.0-100.0); MEAN CORPUSCULAR HEMOGLOBIN 26.1 PG (27.0-34.0); MEAN CORPUSCULAR HGB CONC 32.7 % (32.0-36.0); MONO % 6.3 % (0.0-8.0); NEUT % 87.6 % (16.0-70.0); PLATELET COUNT 180 TH/MM3 (150-450); RED CELL DISTRIBUTION WIDTH 12.8 % (11.6-17.2); WHITE BLOOD COUNT 22.1 TH/MM3 (4.0-11.0)
[2017-03-27] MEDS: INSULIN ASPART SUPPLEMENTAL SCALE SQ SCH (07:58)
[2017-03-27] MEDS: ASPIRIN EC 325 MG TABEC PO SCH (08:11)
[2017-03-27] MEDS: LISINOPRIL 20 MG TAB PO SCH (08:11)
[2017-03-27 08:19] LABS: HEMO FLAGS DIFF FINAL
--- NOTE | 2017-03-27 09:29 | HHI.PR ---
Subjective Remarks Patient seen and examined today for follow-up on adverse reaction to Haldol. Patient is clinically improved. He is alert. Talking today, wanting to start walking again. Objective Vitals Vital Signs Date Time Temp Pulse Resp B/P (MAP) Pulse Ox O2 Delivery O2 Flow Rate FiO2 03/27/17 04:08 98.5 98 13 117/74 (88) 97 03/27/17 04:00 92 03/27/17 00:00 98.4 120 21 119/70 (86) 99 03/27/17 00:00 118 03/26/17 22:00 122 03/26/17 20:04 98 12 101/49 (66) 95 03/26/17 20:00 98 03/26/17 19:22 98.2 108 14 111/60 (77) 96 03/26/17 16:00 128 24 96 03/26/17 15:00 112 14 126/65 (85) 97 03/26/17 15:00 128 03/26/17 14:00 99.0 138 27 94 03/26/17 13:00 120 23 133/77 (95) 96 03/26/17 13:00 120 23 133/77 (95) 96 03/26/17 12:30 130 23 95 03/26/17 12:30 130 23 95 03/26/17 12:29 130 29 139/55 (83) 96 03/26/17 12:20 144 26 191/83 (119) 95 03/26/17 12:10 124 27 111/43 (65) 97 03/26/17 12:00 142 33 158/75 (102) 96 03/26/17 11:50 30 149/63 (91) 96 03/26/17 11:40 114 17 136/81 (99) 98 03/26/17 11:30 99.1 106 16 112/51 (71) 99 03/26/17 11:20 166 33 163/65 (97) 99 03/26/17 11:10 114 22 120/60 (80) 98 03/26/17 11:10 114 22 120/60 (80) 98 03/26/17 11:00 138 42 163/77 (105) 95 03/26/17 11:00 138 42 163/77 (105) 95 03/26/17 10:50 134 36 149/60 (89) 96 03/26/17 10:50 134 36 149/60 (89) 96 03/26/17 10:35 106 15 150/80 (103) 98 03/26/17 10:35 106 15 150/80 (103) 98 03/26/17 10:30 144 23 183/81 (115) 99 03/26/17 10:30 144 23 183/81 (115) 99 03/26/17 10:20 156 33 185/73 (110) 100 03/26/17 10:20 156 33 185/73 (110) 100 03/26/17 10:07 132 29 166/97 (120) 97 03/26/17 10:07 132 29 166/97 (120) 97 03/26/17 10:00 36 97 03/26/17 10:00 98.3 36 97 I/O 03/26/17 03/26/17 03/26/17 03/27/17 03/27/17 03/27/17 07:00 15:00 23:00 07:00 15:00 23:00 Intake Total 500 ml 2670 ml 2500 ml Output Total 1550 ml Balance 500 ml 2670 ml 950 ml Intake Oral 960 ml 600 ml IV Total 500 ml 1710 ml 1900 ml Output Urine Total 1550 ml # Voids 5 1 2 1 # Bowel Movements 5 1 Result Diagram: 03/27/1753403/27/17534 Objective Remarks GENERAL: Well-developed, well-nourished, in no acute distress. Patient is alert HEENT: Head is normocephalic without any lesions or masses noted. Facial features are symmetric. Eyes: Extraocular muscles are intact. Conjunctivae were clear. NECK: Trachea midline no deviation. No JVD CARDIAC: Regular rhythm, sinus tachycardia. S1/S2 are heard. No murmurs gallops or rubs. LUNGS: Clear to auscultation bilaterally. No wheeze, rhonchi or rales. No use of accessory muscles on inspiration or expiration. ABDOMEN: Soft, nontender. Nondistended. Bowel sounds heard in all 4 quadrants. No organomegaly or masses. Negative rebound, negative guarding EXTREMITIES: No edema, pulses are equal bilaterally. No cyanosis or clubbing NEUROLOGY: Patient no longer showing any signs of dystonia. Mood and Affect appropriate for his condition. Cranial nerves II through XII are grossly intact. Moving all extremities, speech is clear Procedures None. Urinary Catheter: No Vascular Central Line Catheter: No A/P Assessment and Plan Systemic inflammatory response syndrome, likely due to adverse reaction to Haldol Patient with leukocytosis, tachycardia, rhabdomyolysis. No signs of infection Patient transferred ICU with intermediate care CT of the brain indicates prominent retrocerebellar cerebral CSF space which are consistent with magna cisterna magna Chest x-rays clear, urinalysis is without any signs of infection Blood cultures are pending Lactic acidosis has resolved Discontinue empirical antibiotics vancomycin and Zosyn Adverse reaction to Haldol, improved Patient with acute dystonia, seizure by EEG, altered mental status, rhabdomyolysis, Possible tardive dyskinesia from Haldol Records were reviewed and patient had similar episode of this in September 2016 when he was also given a dose of Haldol Haldol was added to patient's allergy list Discussed with Psychiatry, Dr Schmitt, states his symptoms is classic acute dystonia, recommended Benadryl 50 mg IM single dose EEG was performed, Which did indicate generalized background slowing. There was a occipital sharp-like activity intermittent throughout the recording that may be epileptogenic Neurology evaluated patient and made recommendations Patient loaded with Dilantin and continued on Dilantin 100 mg every 8 hours, continue monitor Dilantin level Rhabdomyolysis continue IV fluids Monitor CPK Elevated troponin, unlikely related to acute NSTEMI, likely secondary to the above Troponin is trending down at this time Will check echocardiogram for cardiac function Patient started on aspirin, check lipid panel Consulted cardiology and discuss with Dr. Salcedo. Troponin elevation likely secondary to acute Haldol reaction, rhabdomyolysis, seizure. Hyperglycemia with increased urine glucose, likely secondary to adverse reaction , no more episodes of hyperglycemia Hemoglobin A1c 5.6 Discontinue Accu-Cheks with sliding scale insulin Total Self Care Deficit: Case management trying to find appropriate placement. 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 Reported mental capacity of 89 year-old. Patient is a flight risk, patient has to have sitter ordered Hypertension, stable Lisinopril 20 mg daily Norvasc 10 mg daily DVT Prophylaxis: Low risk, patient ambulating Discharge Planning Discharge once arrangements made by case management Yaniv Simmons Mar 27, 2017 09:29
[2017-03-27 10:46] LABS: CKMB 21.5 NG/ML (0.5-3.6)
[2017-03-27 11:13] LABS: FREE T3 3.02 PG/ML (2.18-3.98); FREE T4 1.19 NG/DL (0.76-1.46); HDL CHOLESTEROL 67.1 MG/DL (40.0-60.0)
--- NOTE | 2017-03-27 12:34 | EKG ---
Date Performed: 03/26/2017 Time Performed: 13:37:56 PTAGE: 22 years EKG: SINUS TACHYCARDIA ABNORMAL RHYTHM ECG PREVIOUS TRACING : 03/26/2017 07.45 Since previous tracing, no significant change. DOCTOR: Andi Ibarra Interpretating Date/Time 03/27/2017 12:33:36
--- NOTE | 2017-03-27 12:35 | EKG ---
Date Performed: 03/26/2017 Time Performed: 20:21:28 PTAGE: 22 years EKG: SINUS TACHYCARDIA ABNORMAL RHYTHM ECG PREVIOUS TRACING : 03/26/2017 13.37 Since previous tracing, heart rate is somewhat slower, othe rwise no significant change. DOCTOR: Andi Ibarra Interpretating Date/Time 03/27/2017 12:34:26
[2017-03-27] MEDS: PHENYTOIN SODIUM 100 MG CAP PO SCH ×2 (14:46→20:19)
--- NOTE | 2017-03-27 15:50 | HHI.PR ---
Review/Management Diagnosis 1. Seizure disorder. 2. The patient had a similar episode in September 2016,to Haldol. 3. Rhabdomyolysis 4. Hyperglycemic 5. Dandy- Walker syndrome 6. Hyperthyroidism Plan 1. Neuro check q 1 hourly 2. Maintenance dose of Dilantin 100 mg q 8 4. Obtain Dilantin level next a.m. 5. Seizure precautions 6. Continue supportive medical therapy 7. Avoid Haldol, other Dopaminergic medications and Metoclopramide 8. Deep venous thrombosis prophylaxis 9. GI prophylaxis 10. Discussed case with RN Diagnosis/Plan: Subjective Subjective Comments No acute events reported No reported seizures Dilantin level is therapeutic [15.3] Active Medications Current Medications Medications (Trade) Dose Ordered Sig/Carlo Route Start Time Stop Time Status Last Admin (Tylenol) 650 mg Q4H PRN PO 11/18/16 21:00 (Senokot) 17.2 mg Q12H PRN PO 11/18/16 21:00 03/24/17 20:26 (Lactulose Liq) 30 ml DAILY PRN PO 11/18/16 21:00 02/12/17 23:51 (Pill Splitter) 1 ea UNSCH PRN OTHER 11/18/16 23:15 (Prinivil) 20 mg DAILY PO 12/01/16 09:00 03/27/17 08:11 (Norvasc) 10 mg DAILY PO 12/01/16 15:00 03/27/17 08:11 Potassium Chloride/Sodium Chloride 1,000 ml @ 125 mls/hr Q8H IV 03/26/17 09:00 03/27/17 08:12 (Ativan Inj) 2 mg Q2H PRN IV PUSH 03/26/17 09:15 03/26/17 18:46 (Vasotec Inj) 1.25 mg Q6H PRN IV PUSH 03/26/17 13:30 (Ecotrin Ec) 325 mg DAILY PO 03/27/17 09:00 03/27/17 08:11 (Dilantin) 100 mg Q8HR PO 03/27/17 14:00 03/27/17 14:46 Allergies Allergies Coded Allergies haloperidol (Verified Adverse Reaction, Severe, tardive dyskinesia, change in mentation, rhabdomyolysis, , 03/26/17) Review of Systems All other ROS: ROS reviewed as documented in chart Exam I&O / VS Vital Signs Date Time Temp Pulse Resp B/P (MAP) Pulse Ox O2 Delivery O2 Flow Rate FiO2 03/27/17 12:00 99.0 100 15 119/56 (77) 03/27/17 09:00 104 15 99 03/27/17 08:13 106 21 119/72 (88) 98 03/27/17 08:00 99.1 104 21 94 03/27/17 04:08 98.5 98 13 117/74 (88) 97 03/27/17 04:00 92 03/27/17 00:00 98.4 120 21 119/70 (86) 99 03/27/17 00:00 118 03/26/17 22:00 122 03/26/17 20:04 98 12 101/49 (66) 95 03/26/17 20:00 98 03/26/17 19:22 98.2 108 14 111/60 (77) 96 03/26/17 16:00 128 24 96 Exam Comments PHYSICAL EXAMINATION GENERAL: Awake, alert, playing games on the phone. HEENT: Normocephalic, atraumatic. Intact hearing. Intact vision. CARDIOVASCULAR: Regular rate and rhythm. RESPIRATORY: Clear to auscultation MUSCULOSKELETAL: Without clubbing or cyanosis. NEUROLOGIC: Awake, alert, oriented to person not place or time. Has nasal tone to the voice. Mild dysarthria. Limited knowledge. Limited comprehension. Unable to eat or write. Moves all extremities, unable to assess with accuracy motor, sensory or cerebellar function because of lack of cooperation due to his cognitive abnormality. PSYCHIATRIC: Calm, cooperative, pleasant. Objective Radiology Results Last [address] 03/26/17 0000 Signed Impressions: Service Date/Time: Sunday, March 26, 2017 08:55 - CONCLUSION: 1. Prominent retrocerebellar CSF space is consistent with incidental magna cisterna magna. 2. No acute intracranial abnormality. Charles Hopkins MD Chest X-Ray 03/26/17 0000 Signed Impressions: Service Date/Time: Sunday, March 26, 2017 02:55 - CONCLUSION: Normal examination. Guerrero Grey MD Micro and Labs Laboratory Tests Test 03/26/17 20:24 03/26/17 22:45 03/27/17 05:35 03/27/17 07:55 Lactic Acid Level 3.7 2.4 1.2 Total Creatine Kinase 5360 6816 Creatine Kinase MB 22.3 21.5 Creatine Kinase MB % 0.4 0.3 Troponin I 0.22 0.14 Vitamin B12 Level 576 Folate 18.4 Thyroid Stimulating Hormone 3rd Gen 0.261 White Blood Count 22.1 Red Blood Count 4.80 Hemoglobin 12.5 Hematocrit 38.3 Mean Corpuscular Volume 79.9 Mean Corpuscular Hemoglobin 26.1 Mean Corpuscular Hemoglobin Concent 32.7 Red Cell Distribution Width 12.8 Platelet Count 180 Mean Platelet Volume 10.2 Neutrophils (%) (Auto) 87.6 Lymphocytes (%) (Auto) 5.1 Monocytes (%) (Auto) 6.3 Eosinophils (%) (Auto) 0.8 Basophils (%) (Auto) 0.2 Neutrophils # (Auto) 19.4 Lymphocytes # (Auto) 1.1 Monocytes # (Auto) 1.4 Eosinophils # (Auto) 0.2 Basophils # (Auto) 0.0 CBC Comment DIFF FINAL Differential Comment Blood Urea Nitrogen 11 Creatinine 1.20 Random Glucose 135 Total Protein 7.1 Albumin 3.6 Calcium Level 8.1 Alkaline Phosphatase 58 Aspartate Amino Transf (AST/SGOT) 130 Alanine Aminotransferase (ALT/SGPT) 78 Total Bilirubin 0.4 Sodium Level 142 Potassium Level 3.9 Chloride Level 111 Carbon Dioxide Level 21.4 Anion Gap 10 Estimat Glomerular Filtration Rate 91 Triglycerides Level 53 Cholesterol Level 150 LDL Cholesterol 72 HDL Cholesterol 67.1 Cholesterol/HDL Ratio 2.23 Free Thyroxine 1.19 Free Triiodothyronine (T3) pg/dL 3.02 Phenytoin (Dilantin) Level 15.3 Date/Time Source Procedure Growth Status 03/26/17 03:25 Blood Peripheral Aerobic Blood Culture - Preliminary NO GROWTH IN 1 DAY Resulted 03/26/17 03:25 Blood Peripheral Anaerobic Blood Culture - Preliminary NO GROWTH IN 1 DAY Resulted Barbara Martell MD Mar 27, 2017 15:50
--- NOTE | 2017-03-27 16:49 | ECHRPT ---
Indication: ELEVATED TROP CONCLUSIONS The left ventricular systolic function is normal with an estimated ejection fraction in the range of 55-60%. There is trace tricuspid valve regurgitation. BP: / HR: Rhythm: MEASUREMENTS (Male / Female) Normal Values Technical Quality: 2D ECHO LV Diastolic Diameter PLAX 5.2 cm 4.2 - 5.9 / 3.9 - 5.3 cm LV Systolic Diameter PLAX 3.9 cm IVS Diastolic Thickness 0.8 cm 0.6 - 1.0 / 0.6 - 0.9 cm LVPW Diastolic Thickness 0.6 cm 0.6 - 1.0 / 0.6 - 0.9 cm LV Relative Wall Thickness 0.3 RV Internal Dim ED PLAX 2.0 cm LA Systolic Diameter LX 2.9 cm 3.0 - 4.0 / 2.7 - 3.8 cm M-MODE Aortic Root Diameter MM 2.8 cm AV Cusp Separation MM 1.9 cm DOPPLER Mitral E Point Velocity 96.5 cm/s Mitral A Point Velocity 63.1 cm/s Mitral E to A Ratio 1.5 TR Peak Velocity 181.0 cm/s TR Peak Gradient 13.1 mmHg Right Atrial Pressure 5.0 mmHg Pulmonary Artery Systolic Pressu 18.1 mmHg Right Ventricular Systolic Press 18.1 mmHg FINDINGS LEFT VENTRICLE Normal left ventricular size. Wall thickness is normal. The left ventricular systolic function is normal with an estimated ejection fraction in the range of 55-60%. No regional wall motion abnormalities are present. RIGHT VENTRICLE Normal right ventricular size and systolic function. LEFT ATRIUM The left atrial size is normal. RIGHT ATRIUM The right atrial size is normal. ATRIAL SEPTUM Normal atrial septal thickness. AORTA The aortic root and proximal ascending aorta are normal in size on limited imaging. MITRAL VALVE Structurally normal mitral valve. No mitral valve stenosis or regurgitation. AORTIC VALVE Trileaflet aortic valve. No aortic valve stenosis or regurgitation. TRICUSPID VALVE Structurally normal tricuspid valve. No tricuspid valve stenosis. There is trace tricuspid valve regurgitation. PULMONARY VALVE No pulmonary valve regurgitation or stenosis. VESSELS The inferior vena cava is normal in size. PERICARDIUM No pericardial effusion. Luis Alberto Salcedo DO (Electronically Signed) Final Date:27 March 2017 16:48
[2017-03-27] MEDS ORDERED: PHARMACY ORDERED LAB ONE (17:45)
--- NOTE | 2017-03-27 18:03 | MB ---
cc: LUIS ALBERTO BRICEÑO DO DATE OF CONSULTATION: 03/27/2017. REASON FOR CONSULTATION: Elevated troponin. HISTORY OF PRESENT ILLNESS: Elia Cabello is a pleasant but unfortunate 21-year-old male who presented originally to [facility] on November 18, 2016 as he was a Youssef Act and an unsafe discharge. He has been in the hospital since that time and has been awaiting placement. Per the primary team, the patient is up walking the halls most of the time all day. On March 25, 2017, the patient had a change in mental status, becoming very aggressive and started streaking through the hallways. He received Haldol IM which controlled the agitation. Apparently at some point after this time, the patient developed further medical issues including diaphoresis, dystonia, and tachycardia. He was removed to the intensive care unit for further management. While there, apparently he had a tonic seizure for which neurology observed. During the workup after these event, CK and troponin were drawn and both were elevated and because of this cardiology was consulted. On seeing Elia today, he is currently hemodynamically stable without chest pain or shortness of breath. PAST MEDICAL HISTORY: 1. Hypertension. 2. Dandy Walker malformation. PAST SURGICAL HISTORY: Denies. ALLERGIES: HALOPERIDOL HAS BEEN ADDED TO HIS ALLERGY LIST AFTER HE HAD TWO EVENTS OF INCREASED CREATINE KINASE AFTER RECEIVING IT. HOME MEDICATIONS: Ativan 0.5 milligrams every 8 hours as needed for anxiety or agitation. FAMILY HISTORY: The patient does not know his family history. SOCIAL HISTORY: Denies tobacco, alcohol or drug abuse. REVIEW OF SYSTEMS Fourteen systems were reviewed including osteopathic with pertinent positives and negatives as above; otherwise negative. PHYSICAL EXAMINATION: VITAL SIGNS: Temperature 99.0, heart rate 82, blood pressure 119/56, respirations 18, pulse ox 99% on room air. GENERAL: In general the patient appears well and in no acute distress. HEAD, EYES, EARS, NOSE, THROAT: Extraocular muscles intact. Mucous membranes moist. NECK: The neck is supple. No JVD at 45 degrees. No carotid bruits heard bilaterally. Carotid upstroke is brisk in nature. HEART: Regular rate and rhythm. Positive first and second heart sounds with no murmurs, gallops or rubs. LUNGS: Clear to auscultation bilaterally. No wheezes, rales or rhonchi. ABDOMEN: The abdomen is soft, nontender and nondistended. No organomegaly noted. EXTREMITIES: No clubbing, cyanosis or edema. Femoral and distal pulses are intact bilaterally. NEUROLOGIC: Neurologically currently moving all his extremities. SKIN: Warm, dry and intact. OSTEOPATHIC: Osteopathically, no kyphoscoliosis, lordosis or paraspinal tender points. LABORATORY FINDINGS: Hemoglobin 12.5, hematocrit 38.3, platelets 180,000. Potassium 3.9, BUN 11, creatinine 1.2, lactic acid 8.6 decreasing to 1.2. Creatine kinase 6816. Troponin 0.13, 0.22 decreasing to 0.14. Electrocardiogram (March 26, 2017 at 202): Sinus tachycardia with no acute S-T-T wave changes. IMPRESSION: 1. Mildly elevated to troponin most likely type 2 due to above events as well as lactic acidosis, rhabdomyolysis and most likely hypoxia during the event. 2. Rhabdomyolysis. 3. Adverse reaction to Haldol. 4. History of Dandy Walker malformation with intellectual disability. 5. Hypertension. 6. Lactic acidosis. RECOMMENDATIONS: 1. Elia Cabello appears to have had an adverse reaction to Haldol two nights ago which led to lactic acidosis, increasing creatine kinase and mild elevation of his troponin. 2. His troponin spill is most likely type 2 in nature due to the above event as well as his rhabdomyolysis and lactic acidosis. Would not pursue further cardiac evaluation at this time. 3. Will check a 2-D echo to look at his overall left ventricular function, cardiac structure and possible valvulopathies. 4. Event, although felt to be a seizure, possibly could have been neuroleptic malignant syndrome, especially with Haldol, the muscle rigidity, hypothermia and tachycardia as well as his leukocytosis and creatine kinase. Neurology is following and started him on anti-seizure medications. 5. He does carry a history of hypertension and blood pressure has been well-controlled recently on lisinopril and Norvasc and will continue these. He has been started on IV fluids for his rhabdomyolysis and we will need to watch his creatinine, and any hints of acute kidney injury, lisinopril will need to be stopped. At this time, he has no further cardiovascular issues. I will see him on an as-needed basis. If there are any questions, please do not hesitate to call. Luis Alberto HICKS/IRAIS /5:07 PM /5:43 PM
[2017-03-28] VITALS (15 sets, daily range): BP systolic 97–142; BP diastolic 54–88; PULSE 60–102; RESP 15–25; TEMP 97.8–99.1; O2SAT 94–97
[2017-03-28] MEDS: NS + KCL 20 MEQ INJ 1,000 ML IV SCH ×3 (02:12→17:00)
[2017-03-28 06:10] LABS: CKMB 6.3 NG/ML (0.5-3.6)
[2017-03-28] MEDS: PHENYTOIN SODIUM 100 MG CAP PO SCH ×3 (06:29→22:08)
--- NOTE | 2017-03-28 08:46 | HHI.PR ---
Subjective Remarks Patient seen and examined today for follow-up on adverse reaction to Haldol, rhabdomyolysis, seizure. Patient is doing much better. No recurrent episodes or symptoms. Patient is more alert and talking. Patient clinically improved Objective Vitals Vital Signs Date Time Temp Pulse Resp B/P (MAP) Pulse Ox O2 Delivery O2 Flow Rate FiO2 03/28/17 04:31 98.6 80 22 97/54 (68) 03/28/17 04:31 80 03/28/17 04:00 60 03/28/17 02:00 76 03/28/17 01:00 86 03/28/17 00:00 90 03/28/17 00:00 98.6 90 18 128/64 (85) 97 03/27/17 20:00 92 03/27/17 20:00 97.6 80 20 121/74 (90) 96 03/27/17 16:00 82 18 03/27/17 14:35 104 18 119/56 (77) 03/27/17 12:00 99.0 100 15 119/56 (77) 03/27/17 09:00 104 15 99 I/O 03/27/17 03/27/17 03/27/17 03/28/17 03/28/17 03/28/17 07:00 15:00 23:00 07:00 15:00 23:00 Intake Total 2500 ml 250 ml 1459 ml 1866 ml Output Total 1550 ml 240 ml 1250 ml Balance 950 ml 250 ml 1219 ml 616 ml Intake Oral 600 ml 120 ml 600 ml IV Total 1900 ml 250 ml 1339 ml 1266 ml Output Urine Total 1550 ml 240 ml 1250 ml # Voids 1 1 # Bowel Movements 1 Result Diagram: 03/27/1735 03/27/17 0535 Objective Remarks GENERAL: Well-developed, well-nourished, in no acute distress. Patient is alert HEENT: Head is normocephalic without any lesions or masses noted. Facial features are symmetric. Eyes: Extraocular muscles are intact. Conjunctivae were clear. NECK: Trachea midline no deviation. No JVD CARDIAC: Regular rhythm, sinus tachycardia. S1/S2 are heard. No murmurs gallops or rubs. LUNGS: Clear to auscultation bilaterally. No wheeze, rhonchi or rales. No use of accessory muscles on inspiration or expiration. ABDOMEN: Soft, nontender. Nondistended. Bowel sounds heard in all 4 quadrants. No organomegaly or masses. Negative rebound, negative guarding EXTREMITIES: No edema, pulses are equal bilaterally. No cyanosis or clubbing NEUROLOGY: Patient no longer showing any signs of dystonia. Mood and Affect appropriate for his condition. Cranial nerves II through XII are grossly intact. Moving all extremities, speech is clear Procedures None. Urinary Catheter: No Vascular Central Line Catheter: No A/P Assessment and Plan Systemic inflammatory response syndrome, likely due to adverse reaction to Haldol Patient with leukocytosis, tachycardia, rhabdomyolysis. No signs of infection Patient transferred ICU with intermediate care CT of the brain indicates prominent retrocerebellar cerebral CSF space which are consistent with magna cisterna magna Chest x-rays clear, urinalysis is without any signs of infection Blood cultures are pending Lactic acidosis has resolved Discontinue empirical antibiotics vancomycin and Zosyn Adverse reaction to Haldol, improved Patient with acute dystonia, seizure by EEG, altered mental status, rhabdomyolysis, Possible tardive dyskinesia, neuroleptic malignant syndrome from Haldol Records were reviewed and patient had similar episode of this in September 2016 when he was also given a dose of Haldol Haldol was added to patient's allergy list Discussed with Psychiatry, Dr Schmitt, states his symptoms is classic acute dystonia, recommended Benadryl 50 mg IM single dose EEG was performed, Which did indicate generalized background slowing. There was a occipital sharp-like activity intermittent throughout the recording that may be epileptogenic Neurology evaluated patient and made recommendations Patient loaded with Dilantin and continued on Dilantin 100 mg every 8 hours, continue monitor Dilantin level Rhabdomyolysis, improving continue IV fluids Monitor CPK Elevated troponin, unlikely related to acute NSTEMI, likely secondary to the above Troponin is trending down at this time Echocardiogram indicated normal systolic function with ejection fraction 55- 60% Patient started on aspirin, check lipid panel Consulted cardiology and discussed with Dr. Salcedo. Troponin elevation likely secondary to acute Haldol reaction, rhabdomyolysis, seizure. No need to pursue any cardiac evaluation. Hyperglycemia with increased urine glucose, likely secondary to adverse reaction , no more episodes of hyperglycemia Hemoglobin A1c 5.6 Discontinue Accu-Cheks with sliding scale insulin Total Self Care Deficit: Case management trying to find appropriate placement. Patient was initially Mikael acted and treated by psychiatrist, Mikael act was lifted and transferred to medical service Dandy Walker Malformation and Intellectual Disability: Chronic. Reported mental capacity of 89 year-old. Patient is a flight risk, patient has to have sitter ordered Hypertension, stable Lisinopril 20 mg daily Norvasc 10 mg daily DVT Prophylaxis: Low risk, patient ambulating Discharge Planning Discharge once arrangements made by case management Yaniv Simmons Mar 28, 2017 08:46
[2017-03-28] MEDS: ASPIRIN EC 325 MG TABEC PO SCH (09:10)
[2017-03-28] MEDS: LISINOPRIL 20 MG TAB PO SCH (09:10)
--- NOTE | 2017-03-28 14:30 | HHI.PR ---
Review/Management Diagnosis 1. Seizure disorder. 2. The patient had a similar episode in September 2016,to Haldol. 3. Rhabdomyolysis 4. Hyperglycemic 5. Dandy- Walker syndrome 6. Hyperthyroidism Plan 1. Neuro check q 4 hourly 2. Maintenance dose of Dilantin 100 mg q 8 4. Obtain Dilantin level next a.m. 5. Seizure precautions 6. Continue supportive medical therapy 7. Avoid Haldol, other Dopaminergic medications and Metoclopramide 8. Deep venous thrombosis prophylaxis 9. GI prophylaxis 10. Discussed case with RN 11. Patient can be further managed out of the ICU 12. Please call for questions Diagnosis/Plan: Subjective Subjective Comments No acute events reported No reported seizures No new complaint Dilantin level is therapeutic [14.1] Active Medications Current Medications Medications (Trade) Dose Ordered Sig/Carol Route Start Time Stop Time Status Last Admin (Tylenol) 650 mg Q4H PRN PO 11/18/16 21:00 (Senokot) 17.2 mg Q12H PRN PO 11/18/16 21:00 03/24/17 20:26 (Lactulose Liq) 30 ml DAILY PRN PO 11/18/16 21:00 02/12/17 23:51 (Pill Splitter) 1 ea UNSCH PRN OTHER 11/18/16 23:15 (Prinivil) 20 mg DAILY PO 12/01/16 09:00 03/28/17 09:10 (Norvasc) 10 mg DAILY PO 12/01/16 15:00 03/28/17 09:10 Potassium Chloride/Sodium Chloride 1,000 ml @ 125 mls/hr Q8H IV 03/26/17 09:00 03/28/17 09:11 (Ativan Inj) 2 mg Q2H PRN IV PUSH 03/26/17 09:15 03/26/17 18:46 (Vasotec Inj) 1.25 mg Q6H PRN IV PUSH 03/26/17 13:30 (Ecotrin Ec) 325 mg DAILY PO 03/27/17 09:00 03/28/17 09:10 (Dilantin) 100 mg Q8HR PO 03/27/17 14:00 03/28/17 13:46 Allergies Allergies Coded Allergies haloperidol (Verified Adverse Reaction, Severe, tardive dyskinesia, change in mentation, rhabdomyolysis, , 03/26/17) Review of Systems All other ROS: ROS reviewed as documented in chart Exam I&O / VS Vital Signs Date Time Temp Pulse Resp B/P (MAP) Pulse Ox O2 Delivery O2 Flow Rate FiO2 03/28/17 13:03 98.8 142/88 (106) 03/28/17 12:00 68 16 03/28/17 12:00 98 03/28/17 11:00 62 22 03/28/17 10:00 64 15 03/28/17 09:00 70 17 03/28/17 08:52 78 15 101/66 (78) 03/28/17 08:00 102 03/28/17 08:00 97.8 94 25 03/28/17 07:00 82 21 03/28/17 04:31 98.6 80 22 97/54 (68) 03/28/17 04:31 80 03/28/17 04:00 60 03/28/17 02:00 76 03/28/17 01:00 86 03/28/17 00:00 90 03/28/17 00:00 98.6 90 18 128/64 (85) 97 03/27/17 20:00 92 03/27/17 20:00 97.6 80 20 121/74 (90) 96 03/27/17 16:00 82 18 03/27/17 14:35 104 18 119/56 (77) Exam Comments PHYSICAL EXAMINATION GENERAL: Awake, alert, calm in bed HEENT: Normocephalic, atraumatic. Intact hearing. Intact vision. CARDIOVASCULAR: Regular rate and rhythm. RESPIRATORY: Clear to auscultation MUSCULOSKELETAL: Without clubbing or cyanosis. NEUROLOGIC: Awake, alert, oriented to person not place or time. Has nasal tone to the voice. Mild dysarthria. Limited knowledge. Limited comprehension. Unable to eat or write. Moves all extremities, unable to assess with accuracy motor, sensory or cerebellar function because of lack of cooperation due to his cognitive abnormality. PSYCHIATRIC: Calm, cooperative, pleasant. Objective Radiology Results Last [address] 03/26/17 0000 Signed Impressions: Service Date/Time: Sunday, March 26, 2017 08:55 - CONCLUSION: 1. Prominent retrocerebellar CSF space is consistent with incidental magna cisterna magna. 2. No acute intracranial abnormality. Charles Hopkins MD Chest X-Ray 03/26/17 0000 Signed Impressions: Service Date/Time: Sunday, March 26, 2017 02:55 - CONCLUSION: Normal examination. Guerrero Grey MD Micro and Labs Laboratory Tests Test 03/28/17 04:30 Total Creatine Kinase 3853 Creatine Kinase MB 6.3 Creatine Kinase MB % 0.2 Phenytoin (Dilantin) Level 14.1 Date/Time Source Procedure Growth Status 03/26/17 03:25 Blood Peripheral Aerobic Blood Culture - Preliminary NO GROWTH IN 2 DAYS Resulted 03/26/17 03:25 Blood Peripheral Anaerobic Blood Culture - Preliminary NO GROWTH IN 2 DAYS Resulted Barbara Martell MD Mar 28, 2017 14:30
[2017-03-29] MEDS: PHENYTOIN SODIUM 100 MG CAP PO SCH ×3 (06:13→21:05)
[2017-03-29 06:26] LABS: AUTOMATED NEUTROPHIL # 6.1 TH/MM3 (1.8-7.7); BASOPHIL % 0.2 % (0.0-2.0); EOSINOPHIL % 0.6 % (0.0-4.0); HEMATOCRIT 39.9 % (39.0-51.0); HEMO FLAGS DIFF FINAL; LYMPH % 15.6 % (9.0-44.0); LYMPHOCYTE # 1.3 TH/MM3 (1.0-4.8); MEAN CELL VOLUME 79.6 FL (80.0-100.0); MEAN CORPUSCULAR HEMOGLOBIN 25.5 PG (27.0-34.0); MONO % 8.9 % (0.0-8.0); NEUT % 74.7 % (16.0-70.0); PLATELET COUNT 175 TH/MM3 (150-450); RED BLOOD COUNT 5.02 MIL/MM3 (4.50-5.90); RED CELL DISTRIBUTION WIDTH 12.7 % (11.6-17.2); WHITE BLOOD COUNT 8.1 TH/MM3 (4.0-11.0)
[2017-03-29 06:29] LABS: POTASSIUM 4.2 MEQ/L (3.5-5.1)
[2017-03-29 06:50] LABS: BICARBONATE 28.1 MEQ/L (21.0-32.0); MAGNESIUM 1.8 MG/DL (1.5-2.5)
[2017-03-29 07:20] LABS: CKMB 3.1 NG/ML (0.5-3.6)
[2017-03-29 08:00] VITALS: BP 138/100; PULSE 89; RESP 16; TEMP 97.2; O2SAT 93
[2017-03-29] MEDS: LISINOPRIL 20 MG TAB PO SCH (08:21)
[2017-03-29] MEDS: ASPIRIN EC 325 MG TABEC PO SCH (08:21)
[2017-03-29] MEDS: NS + KCL 20 MEQ INJ 1,000 ML IV SCH ×4 (08:22→18:04)
--- NOTE | 2017-03-29 08:41 | HHI.PR ---
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 Patient seen and examined, sitting up in bed comfortably, playing on his phone. Denies any pain, denies any new acute events overnight. Alert and oriented, speech is clear. Objective Vitals Vital Signs Date Time Temp Pulse Resp B/P (MAP) Pulse Ox O2 Delivery O2 Flow Rate FiO2 03/28/17 20:00 98.2 80 20 133/86 (102) 94 03/28/17 16:00 71 03/28/17 16:00 99.1 71 18 123/85 (98) 97 03/28/17 13:03 98.8 142/88 (106) 03/28/17 12:00 68 16 03/28/17 12:00 98 03/28/17 11:00 62 22 03/28/17 10:00 64 15 03/28/17 09:00 70 17 03/28/17 08:52 78 15 101/66 (78) I/O 03/28/17 03/28/17 03/28/17 03/29/17 03/29/17 03/29/17 07:00 15:00 23:00 07:00 15:00 23:00 Intake Total 1866 ml 480 ml 80 ml Output Total 1250 ml 675 ml Balance 616 ml -195 ml 80 ml Intake Oral 600 ml 480 ml 80 ml IV Total 1266 ml Output Urine Total 1250 ml 675 ml # Voids 1 0 # Bowel Movements 1 1 0 Result Diagram: 03/29/17 0550 03/29/17 0550 Imaging Last Impressions Head CT 03/26/17 0000 Signed Impressions: Service Date/Time: Sunday, March 26, 2017 08:55 - CONCLUSION: 1. Prominent retrocerebellar CSF space is consistent with incidental magna cisterna magna. 2. No acute intracranial abnormality. Charles Hopkins MD Chest X-Ray 03/26/17 0000 Signed Impressions: Service Date/Time: Sunday, March 26, 2017 02:55 - CONCLUSION: Normal examination. Guerrero Grey MD Objective Remarks GENERAL: Well-nourished, well-developed male patient. Awake and alert. SKIN: Warm and dry. No rash. HEENT: Normocephalic. Atraumatic. Pupils equal and round. No scleral icterus. No injection or drainage. No nasal bleeding or discharge. Mucous membranes pink and moist. NECK: Supple. Trachea midline. CARDIOVASCULAR: Regular rate and rhythm. S1, S2 noted. No murmur appreciated. RESPIRATORY: No accessory muscle use. Clear to auscultation. Breath sounds equal bilaterally. GASTROINTESTINAL: Abdomen soft, non-tender, nondistended. Normoactive bowel sounds x4. No guarding noted. MUSCULOSKELETAL: No obvious deformities. Extremities without clubbing, cyanosis , or edema. NEUROLOGICAL: Awake and alert. No obvious cranial nerve deficits. Motor grossly within normal limits. 5/5 muscle strength in bilateral upper and lower extremities. Normal speech. PSYCHIATRIC: Appropriate mood and affect. Procedures None. 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 No signs of infection Patient initially transferred to ICU with intermediate care. Now transferred to floor. CT of the brain indicates prominent retrocerebellar cerebral CSF space which are consistent with magna cisterna magna. Chest x-rays clear, urinalysis is without any signs of infection Blood cultures were drawn, no growth to date. Lactic acidosis has resolved Discontinue empirical antibiotics vancomycin and Zosyn Adverse reaction to Haldol, improved Patient with acute dystonia, seizure by EEG, altered mental status, rhabdomyolysis, Possible tardive dyskinesia, neuroleptic malignant syndrome from Haldol Records were reviewed and patient had similar episode of this in September 2016 when he was also given a dose of Haldol Haldol was added to patient's allergy list. Discussed with Psychiatry, Dr Schmitt, states his symptoms is classic acute dystonia, recommended Benadryl 50 mg IM single dose. EEG was performed, which did indicate generalized background slowing. There was a occipital sharp-like activity intermittent throughout the recording that may be epileptogenic. Neurology evaluated patient and made recommendations Patient loaded with Dilantin and continued on Dilantin 100 mg every 8 hours, continue monitor Dilantin level Rhabdomyolysis, improving continue IV fluids Monitor CPK Elevated troponin, unlikely related to acute NSTEMI, likely secondary to the above Troponin is trending down at this time Echocardiogram indicated normal systolic function with ejection fraction 55- 60% Patient started on aspirin, lipid panel normal. Consulted cardiology and discussed with Dr. Salcedo. Troponin elevation likely secondary to acute Haldol reaction, rhabdomyolysis, seizure. No need to pursue any cardiac evaluation. Hyperglycemia with increased urine glucose, likely secondary to adverse reaction , no more episodes of hyperglycemia Hemoglobin A1c 5.6 Discontinue Accu-Cheks with sliding scale insulin Total Self Care Deficit: Case management trying to find appropriate placement. 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 Reported mental capacity of 89 year-old. Patient is a flight risk, patient has to have sitter ordered Hypertension, stable Lisinopril 20 mg daily Norvasc 10 mg daily DVT Prophylaxis: Low risk, patient ambulating Discharge Planning Case management assisting. Shirin Raza Mar 29, 2017 08:41
[2017-03-29 12:00] VITALS: BP 146/93; PULSE 67; RESP 14; TEMP 96.9; O2SAT 99
[2017-03-29 16:00] VITALS: BP 140/90; PULSE 81; RESP 14; TEMP 96.1; O2SAT 96
[2017-03-29 20:00] VITALS: BP 151/93; PULSE 89; RESP 18; TEMP 98.2; O2SAT 98
[2017-03-30 03:11] VITALS: BP 141/98; PULSE 62; RESP 18; TEMP 96.6
[2017-03-30] MEDS: PHENYTOIN SODIUM 100 MG CAP PO SCH ×2 (05:02→13:09)
[2017-03-30 07:20] LABS: CKMB 2.4 NG/ML (0.5-3.6)
--- NOTE | 2017-03-30 07:38 | HHI.PR ---
Subjective Remarks Follow up Dandy walker syndrome and rhabdomyolysis and seizure disorder. Patient seen and examined, sitting up in bed eating breakfast comfortably. Eating well. Drinking fluids. Feeling well. Denies any pain, Denies any muscle weakness. Ambulating well. CPK is trending down. Afebrile. No reports of any acute events overnight. Objective Vitals Vital Signs Date Time Temp Pulse Resp B/P (MAP) Pulse Ox O2 Delivery O2 Flow Rate FiO2 03/30/17 03:11 96.6 62 18 141/98 (112) 03/29/17 20:00 98.2 89 18 151/93 (112) 98 03/29/17 16:00 96.1 81 14 140/90 (107) 96 03/29/17 12:00 96.9 67 14 146/93 (110) 99 03/29/17 08:00 97.2 89 16 138/100 (113) 93 I/O 03/29/17 03/29/17 03/29/17 03/30/17 03/30/17 03/30/17 07:00 15:00 23:00 07:00 15:00 23:00 Intake Total 80 ml 708 ml 1236 ml 1450 ml Balance 80 ml 708 ml 1236 ml 1450 ml Intake Oral 80 ml 708 ml 236 ml 200 ml IV Total 1000 ml 1250 ml # Voids 0 3 2 # Bowel Movements 0 1 0 Result Diagram: 03/29/17 0550 03/29/17 0550 Imaging Last Impressions Head CT 03/26/17 0000 Signed Impressions: Service Date/Time: Sunday, March 26, 2017 08:55 - CONCLUSION: 1. Prominent retrocerebellar CSF space is consistent with incidental magna cisterna magna. 2. No acute intracranial abnormality. Charles Hopkins MD Chest X-Ray 03/26/17 0000 Signed Impressions: Service Date/Time: Sunday, March 26, 2017 02:55 - CONCLUSION: Normal examination. Guerrero Grey MD Objective Remarks GENERAL: Well-nourished, well-developed male patient. Awake and alert. SKIN: Warm and dry. No rash. HEENT: Normocephalic. Atraumatic. Pupils equal and round. No scleral icterus. No injection or drainage. No nasal bleeding or discharge. Mucous membranes pink and moist. NECK: Supple. Trachea midline. CARDIOVASCULAR: Regular rate and rhythm. S1, S2 noted. No murmur appreciated. RESPIRATORY: No accessory muscle use. Clear to auscultation. Breath sounds equal bilaterally. GASTROINTESTINAL: Abdomen soft, non-tender, nondistended. Normoactive bowel sounds x4. No guarding noted. MUSCULOSKELETAL: No obvious deformities. Extremities without clubbing, cyanosis , or edema. NEUROLOGICAL: Awake and alert. No obvious cranial nerve deficits. Motor grossly within normal limits. 5/5 muscle strength in bilateral upper and lower extremities. Normal speech. PSYCHIATRIC: Appropriate mood and affect. Procedures None. 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 No signs of infection Patient initially transferred to ICU with intermediate care. Now transferred to floor. CT of the brain indicates prominent retrocerebellar cerebral CSF space which are consistent with magna cisterna magna. Chest x-rays clear, urinalysis is without any signs of infection Blood cultures were drawn, no growth to date. Lactic acidosis has resolved Discontinue empirical antibiotics vancomycin and Zosyn Adverse reaction to Haldol, improved Patient with acute dystonia, seizure by EEG, altered mental status, rhabdomyolysis, Possible tardive dyskinesia, neuroleptic malignant syndrome from Haldol Records were reviewed and patient had similar episode of this in September 2016 when he was also given a dose of Haldol Haldol was added to patient's allergy list. Discussed with Psychiatry, Dr Schmitt, states his symptoms is classic acute dystonia, recommended Benadryl 50 mg IM single dose. EEG was performed, which did indicate generalized background slowing. There was a occipital sharp-like activity intermittent throughout the recording that may be epileptogenic. Neurology evaluated patient and made recommendations. Recommendations to follow with neurology upon discharge to monitor Dilantin levels and seizure disorder. Patient loaded with Dilantin and continued on Dilantin 100 mg every 8 hours, continue monitor Dilantin level Rhabdomyolysis, improving CPK trending down today. Monitor CPK upon discharge. Encourage PO intake. Elevated troponin, unlikely related to acute NSTEMI, likely secondary to the above Troponin is trending down at this time Echocardiogram indicated normal systolic function with ejection fraction 55- 60% Patient started on aspirin, lipid panel normal. Will dc aspirin on discharge , due to patient's age and cardiology does not believe to be cardiac related. Consulted cardiology and discussed with Dr. Salcedo. Troponin elevation likely secondary to acute Haldol reaction, rhabdomyolysis, seizure. No need to pursue any cardiac evaluation. Hyperglycemia with increased urine glucose, likely secondary to adverse reaction , no more episodes of hyperglycemia Hemoglobin A1c 5.6 Discontinue Accu-Cheks with sliding scale insulin Total Self Care Deficit: Case management trying to find appropriate placement. Patient was initially Youssef acted and treated by psychiatrist, Youssef act was lifted and transferred to medical service Danyung Walker Malformation and Intellectual Disability: Chronic. Reported mental capacity of 89 year-old. Patient is a flight risk, patient has to have sitter ordered Hypertension, stable Lisinopril 20 mg daily Norvasc 10 mg daily Continue these upon discharge. DVT Prophylaxis: Low risk, patient ambulating Discharge Planning DC to [facility] today. Shirin Raza Mar 30, 2017 07:38
[2017-03-30] MEDS: ASPIRIN EC 325 MG TABEC PO SCH (08:35)
[2017-03-30] MEDS: LISINOPRIL 20 MG TAB PO SCH (08:35)
[2017-03-30] MEDS: NS + KCL 20 MEQ INJ 1,000 ML IV SCH ×2 (08:40→16:13)
[2017-03-30] MEDS ORDERED: LISI-515 PO (08:46)
[2017-03-30] MEDS ORDERED: SENN187 PO (08:46)
[2017-03-30] MEDS ORDERED: AMLO10 PO (08:46)
[2017-03-30] MEDS ORDERED: DILA100C PO (08:46)
--- NOTE | 2017-03-30 08:47 | HHI.DCPOC ---
Discharge Care Plan Diagnosis: (1) HTN (hypertension) (2) Dandy Walker malformation (3) Self-care deficit in patient living alone (4) Adjustment disorder with mixed disturbance of emotions and conduct Goals to Promote Your Health * To prevent worsening of your condition and complications * To maintain your health at the optimal level Directions to Meet Your Goals Take your medications as prescribed Follow your dietary instruction Follow activity as directed Keep your appointments as scheduled Take your immunizations and boosters as scheduled If your symptoms worsen call your PCP, if no PCP go to Urgent Care Center or Emergency Room Smoking is Dangerous to Your Health. Avoid second hand smoke Call the 24-hour hour crisis hotline for domestic abuse at Shirin Raza Mar 30, 2017 08:47
--- NOTE | 2017-03-30 08:49 | HHI.DS ---
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 Brief History - From Admission 21 y/o male with a history of hypertension and Dandy walker malformation was transferred to the main hospital because he is an unsafe discharge. The patients has an intellectual delay due to medical history and is unable to live alone. He was brought in and treated in [facility] as a youssef act, but no longer meets criteria. Unfortunately patient does not have much family that is can safely care for him. Patient was living at [facility] and was brought in because he tried to escape. He states he does not like living there and rather be somewhere else. He is oriented x2, does not know the year and states he has so family. He denies any chest pain, sob, fever, chills, headaches , nausea, vomiting or dysuria. CBC/BMP: 03/29/17 0550 03/29/17 0550 Significant Findings Laboratory Tests Test 03/28/17 04:30 03/29/17 05:50 03/30/17 06:24 Total Creatine Kinase 3853 U/L (39-308) 2176 U/L (39-308) 1115 U/L (39-308) Creatine Kinase MB 6.3 NG/ML (0.5-3.6) Hemoglobin 12.8 GM/DL (13.0-17.0) Mean Corpuscular Volume 79.6 FL (80.0-100.0) Mean Corpuscular Hemoglobin 25.5 PG (27.0-34.0) Neutrophils (%) (Auto) 74.7 % (16.0-70.0) Monocytes (%) (Auto) 8.9 % (0.0-8.0) Imaging Last Impressions Head CT 03/26/17 0000 Signed Impressions: Service Date/Time: Sunday, March 26, 2017 08:55 - CONCLUSION: 1. Prominent retrocerebellar CSF space is consistent with incidental magna cisterna magna. 2. No acute intracranial abnormality. Charles Hopkins MD Chest X-Ray 03/26/17 0000 Signed Impressions: Service Date/Time: Sunday, March 26, 2017 02:55 - CONCLUSION: Normal examination. Guerrero Grey MD PE at Discharge GENERAL: Well-developed, well-nourished, in no acute distress. Patient is alert HEENT: Head is normocephalic without any lesions or masses noted. Facial features are symmetric. Eyes: Extraocular muscles are intact. Conjunctivae were clear. NECK: Trachea midline no deviation. No JVD CARDIAC: Regular rhythm, sinus tachycardia. S1/S2 are heard. No murmurs gallops or rubs. LUNGS: Clear to auscultation bilaterally. No wheeze, rhonchi or rales. No use of accessory muscles on inspiration or expiration. ABDOMEN: Soft, nontender. Nondistended. Bowel sounds heard in all 4 quadrants. No organomegaly or masses. Negative rebound, negative guarding EXTREMITIES: No edema, pulses are equal bilaterally. No cyanosis or clubbing NEUROLOGY: Patient no longer showing any signs of dystonia. Mood and Affect appropriate for his condition. Cranial nerves II through XII are grossly intact. Moving all extremities, speech is clear Pt update on day of discharge Follow up Dandy walker syndrome and rhabdomyolysis and seizure disorder. Patient seen and examined, sitting up in bed eating breakfast comfortably. Eating well. Drinking fluids. Feeling well. Denies any pain, Denies any muscle weakness. Ambulating well. CPK is trending down. Afebrile. No reports of any acute events overnight. Hospital Course Total Self Care Deficit Patient was initially Youssef acted and treated by psychiatrist, Mikael act was lifted and transferred to medical service Danyung Walker Malformation and Intellectual Disability: Chronic. Reported mental capacity of 710 year-old. Patient is a flight risk, patient has to have sitter ordered Hypertension, stable Lisinopril 20 mg daily Norvasc 10 mg daily Continue these upon discharge. Adverse reaction to Haldol, improved Systemic inflammatory response syndrome, likely due to adverse reaction to Haldol Patient with acute dystonia, seizure by EEG, altered mental status, rhabdomyolysis, Possible tardive dyskinesia, neuroleptic malignant syndrome from Haldol Records were reviewed and patient had similar episode of this in September 2016 when he was also given a dose of Haldol Haldol was added to patient's allergy list. Discussed with Psychiatry, Dr Schmitt, states his symptoms is classic acute dystonia, recommended Benadryl 50 mg IM single dose. EEG was performed, which did indicate generalized background slowing. There was a occipital sharp-like activity intermittent throughout the recording that may be epileptogenic. Neurology evaluated patient and made recommendations. Recommendations to follow with neurology upon discharge to monitor Dilantin levels and seizure disorder. Patient loaded with Dilantin and continued on Dilantin 100 mg every 8 hours, continue monitor Dilantin level CT of the brain indicates prominent retrocerebellar cerebral CSF space which are consistent with magna cisterna magna. Chest x-rays clear, urinalysis is without any signs of infection Blood cultures were drawn, no growth to date. Lactic acidosis has resolved Discontinue empirical antibiotics vancomycin and Zosyn Rhabdomyolysis, improving CPK trending down today. Monitor CPK upon discharge. Encourage PO intake. Elevated troponin, unlikely related to acute NSTEMI, likely secondary to the above Troponin is trending down at this time Echocardiogram indicated normal systolic function with ejection fraction 55- 60% Patient started on aspirin, lipid panel normal. Will dc aspirin on discharge , due to patient's age and cardiology does not believe to be cardiac related. Consulted cardiology and discussed with Dr. Salcedo. Troponin elevation likely secondary to acute Haldol reaction, rhabdomyolysis, seizure. No need to pursue any cardiac evaluation. Hyperglycemia with increased urine glucose, likely secondary to adverse reaction , no more episodes of hyperglycemia Hemoglobin A1c 5.6 Discontinue Accu-Cheks with sliding scale insulin Pt Condition on Discharge: Good Discharge Time: > 30 minutes Discharge Instructions DIET: Follow Instructions for: As Tolerated, No Restrictions Speech Therapy-Diet Recommends: Regular Activities you can perform: Regular-No Restrictions Follow up Referrals: Neurology - 2 Weeks with Barbara Martell MD PCP Follow-up - 2-3 Days New Orders: CKMB PROFILE - 2-3 Days New Medications: Amlodipine (Norvasc) 10 Mg Tab 10 MG PO DAILY for hypertension for 30 Days, #30 TAB Lisinopril (Lisinopril) 20 Mg Tab 20 MG PO DAILY for hypertension for 30 Days, #30 TAB Phenytoin Extended (Dilantin) 100 Mg Cap 100 MG PO Q8HR for seizures for 30 Days, #90 CAP Sennosides (Senna-Lax) 8.6 Mg Tab 17.2 MG PO Q12H PRN for SEE LABEL COMMENTS for 30 Days, #120 TAB [Lactulose] () 30 ML SYRP 30 ML PO DAILY PRN for SEE LABEL COMMENTS for 30 Days, #900 ML Shirin Raza Mar 30, 2017 08:49
[2017-03-30] MEDS ORDERED: Lactulose PO (08:57)
[2017-03-30 09:19] VITALS: BP 123/72; PULSE 84; RESP 15; TEMP 97.3; O2SAT 100
== END 2017-03-30 18:35 | DRG 884 ==
LOC: N04B 20:30 → UNDODISIN 11-20 18:55 → PH5B 11-20 19:33 → PH5A 11-20 19:35 → PH3A 12-23 17:03 → PHICU 03-26 09:49 → PH3A 03-28 19:02
PROVIDERS: ADMIT Hospitalist; ATTEND Hospitalist
DX: F79 Unspecified intellectual disabilities (principal); E87.2 Acidosis; M62.82 Rhabdomyolysis; G21.0 Malignant neuroleptic syndrome; R65.10 Systemic inflammatory response syndrome (SIRS) of non-infectious origin without acute organ dysfunction; G40.909 Epilepsy, unspecified, not intractable, without status epilepticus; Z75.1 Person awaiting admission to adequate facility elsewhere; I10 Essential (primary) hypertension; Q03.1 Atresia of foramina of Magendie and Luschka; R46.89 Other symptoms and signs involving appearance and behavior; G24.9 Dystonia, unspecified; D72.829 Elevated white blood cell count, unspecified; R73.9 Hyperglycemia, unspecified; E05.90 Thyrotoxicosis, unspecified without thyrotoxic crisis or storm; R00.0 Tachycardia, unspecified; R09.02 Hypoxemia; R74.8 Abnormal levels of other serum enzymes; T43.4X5A Adverse effect of butyrophenone and thiothixene neuroleptics, initial encounter; Y92.239 Unspecified place in hospital as the place of occurrence of the external cause; G24.01 Drug induced subacute dyskinesia; F43.25 Adjustment disorder with mixed disturbance of emotions and conduct
CPT/HCPCS: 70450; 71010; 80048; 80053; 80061; 80185; 81001; 82010; 82140; 82550; 82552; 82607; 82746; 82948; 83036; 83605; 83690; 83735; 84439; 84443; 84481; 84484; 85025; 86592; 87040; 93005; 93306; 95819; J1165; J1200; J1630; J2060; J2543; J3370; J3480; J7030; J7050

== ENCOUNTER 2017-04-01 10:50 | Emergency (ER) | payer MEDICAID ==
[~2017-04-01] VITALS: Ht 121.9 cm; Wt 60.0 kg
[~2017-04-01 10:50] MED LIST changes: +DILA100C PO; +LISI-515 PO; -LISI10TA3 PO; +Lactulose PO; -METO25TA3 PO; +SENN187 PO
[2017-04-01] MEDS ORDERED: diphenhydrAMINE HCL 50 MG/ML VIAL IM ONE (11:30)
[2017-04-01] MEDS ORDERED: MIDAZOLAM HCL 2 MG/2 ML VIAL IM ONE (11:30)
[2017-04-01] MEDS ORDERED: ZIPRASIDONE MESYLATE 20 MG VIAL IM ONE (11:30)
--- NOTE | 2017-04-01 11:35 | PD ---
History of Present Illness Chief Complaint: Psychiatric Symptoms Time Seen by Provider: 11:15 Travel History International Travel<30 Days: No Contact w/Intl Traveler<30days: No Known affected area: No History of Present Illness: 22-year-old male with intellectual disability, well known to this physician from previous emergency department visits and hospitalizations. Patient has intermittent and unpredictable explosive behavior. At the time he was seen by this physician he was attempting to flee and was combative with staff. He required physical restraints and chemical restraints were ordered in order to help him not injure himself. Patient's last admission was several months ago. He does not appear to gain anything from hospitalizations. However, he does require some type of residential care as he is intellectually disabled from being able to independently care for himself. He is not claiming to be suicidal or homicidal at this time but his ability to understand his situation and comply with staff direction is questionable. 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) Reproductive: No Respiratory: No Immunizations Current: Yes Migraines: No Seizures: No Ulcer: No Psychiatric History Psychiatric History Hx Psychiatric Treatment: Last [facility] admit for adjustment disorder October 22-2016 on [address]. History of Inpatient Treatment: Yes Guns or firearms in home: No Social History Hx Alcohol Use: No Hx Tobacco Use: No Hx Substance Use: No Hx of Substance Use Treatment: No Allergies-Medications (Allergen,Severity, Reaction): Coded Allergies: haloperidol (Verified Adverse Reaction, Severe, tardive dyskinesia, change in mentation, rhabdomyolysis, , 03/26/17) Reported Meds & Prescriptions Reported Meds & Active Scripts Active [Lactulose] 30 ML Syrp 30 Ml PO DAILY PRN 30 Days Senna-Lax (Sennosides) 8.6 Mg Tab 17.2 Mg PO Q12H PRN 30 Days Dilantin (Phenytoin Extended) 100 Mg Cap 100 Mg PO Q8HR 30 Days Lisinopril 20 Mg Tab 20 Mg PO DAILY 30 Days Norvasc (Amlodipine Besylate) 10 Mg Tab 10 Mg PO DAILY 30 Days Ativan (Lorazepam) 0.5 Mg Tab 0.5 Mg PO Q8H PRN Review of Systems Psychiatric: COMPLAINS OF: Anxiety Except as stated in HPI: all other systems reviewed are Neg Mental Status Examination Appearance: Appropriate Consciousness: Alert Orientation: x4 Motor Activity: Normal gait Speech: Unremarkable Language: Adequate Fund of Knowledge: Inadequate Attention and Concentration: Inadequate Memory: Impaired Mood: Anxious Affect: Labile Thought Process & Associations: Other Thought Content: Other Hallucination Type: None Delusion Type: None Suicidal Ideation: No Suicidal Plan: No Suicidal Intention: No Homicidal Ideation: No Homicidal Plan: No Homicidal Intention: No Insight: Fair Judgment: Impulsive MDM Medical Decision Making Medical Record Reviewed: Yes Assessment/Plan Patient interviewed at bedside as best as possible. Medical record reviewed. Case discussed with nurse Fish. Patient provided physical and chemical restraints due to his agitation and concern of harming himself. No suicidal or homicidal ideation, plan or intent is seen. No psychotic symptoms. Cognition is impaired but felt to be baseline. We will see how medications work and then make further plans for treatment/disposition. Orders Orders Ziprasidone Inj (Geodon Inj) (04/01/17 11:30) Diphenhydramine Inj (Benadryl Inj) (04/01/17 11:30) Midazolam Inj (Versed Inj) (04/01/17 11:30) Restraints Violent (04/01/17 11:22) Diagnosis Primary Impression: Adjustment disorder with mixed disturbance of emotions and conduct Additional Impression: Mental retardation Prescriptions Quetiapine (Seroquel) 25 Mg Tab 25 MG PO BID for Agitation, #60 TAB 0 Refills Prov: Read,Anita Monalisa Juárez PARTNER MANAGEMENT CONSULTANT 04/01/17 Quetiapine (Seroquel) 50 Mg Tab 50 MG PO HS for Anxiety and/or Insomnia, #30 TAB 0 Refills Prov: Read,Anita Monalisa Juárez PARTNER MANAGEMENT CONSULTANT 04/01/17 Problem Qualifiers Avila,Andi A. MD Apr 01, 2017 11:35
--- NOTE | 2017-04-01 12:02 | PD ---
HPI Chief Complaint: Psychiatric Symptoms Time Seen by Provider: 11:41 Travel History International Travel<30 days: No Contact w/Intl Traveler<30days: No Traveled to known affect area: No History of Present Illness HPI 22-year-old male presents to emergency department by john paul mustafa after disrobing and escaping from his assisted living facility. Patient is autistic and has some mental retardation. According to staff patient's baseline is altered and is acting as usual. Patient has no complaints. Apparently has not taken his medication which may have contributed to his current condition. 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) Reproductive: No Respiratory: No Immunizations Current: Yes Migraines: No Seizures: No Ulcer: No Social History Alcohol Use: No Tobacco Use: No Substance Use: No Allergies-Medications (Allergen,Severity, Reaction): Coded Allergies: haloperidol (Verified Adverse Reaction, Severe, tardive dyskinesia, change in mentation, rhabdomyolysis, , 03/26/17) Reported Meds & Prescriptions Reported Meds & Active Scripts Active Seroquel (Quetiapine Fumarate) 25 Mg Tab 25 Mg PO BID Seroquel (Quetiapine Fumarate) 50 Mg Tab 50 Mg PO HS [Lactulose] 30 ML Syrp 30 Ml PO DAILY PRN 30 Days Senna-Lax (Sennosides) 8.6 Mg Tab 17.2 Mg PO Q12H PRN 30 Days Dilantin (Phenytoin Extended) 100 Mg Cap 100 Mg PO Q8HR 30 Days Lisinopril 20 Mg Tab 20 Mg PO DAILY 30 Days Norvasc (Amlodipine Besylate) 10 Mg Tab 10 Mg PO DAILY 30 Days Ativan (Lorazepam) 0.5 Mg Tab 0.5 Mg PO Q8H PRN Review of Systems Except as stated in HPI: all other systems reviewed are Neg Physical Exam Narrative GENERAL: Well-nourished, well-developed patient, dwarfed features, nonslurred speech, upon evaluation patient was restrained. SKIN: Focused skin assessment warm/dry. HEAD: Normocephalic. EYES: No scleral icterus. No injection or drainage. PERRLA, EOMI NECK: Supple, trachea midline. No JVD or lymphadenopathy. CARDIOVASCULAR: Regular rate and rhythm without murmurs, gallops, or rubs. RESPIRATORY: Breath sounds equal bilaterally. No accessory muscle use. GASTROINTESTINAL: Abdomen soft, non-tender, nondistended. MUSCULOSKELETAL: No cyanosis, or edema. Patient moving extremities equally bilaterally. BACK: Nontender without obvious deformity. No CVA tenderness. Data Data Last Documented VS Vital Signs Date Time Temp Pulse Resp B/P (MAP) Pulse Ox O2 Delivery O2 Flow Rate FiO2 04/01/17 20:10 98.6 90 16 126/66 (86) 100 Room Air Orders Orders Ziprasidone Inj (Geodon Inj) (04/01/17 11:30) Diphenhydramine Inj (Benadryl Inj) (04/01/17 11:30) Midazolam Inj (Versed Inj) (04/01/17 11:30) Restraints Violent (04/01/17 11:22) Diet Regular Basic (04/01/17 Dinner) Ed Discharge Order (04/01/17 20:11) [facility] Medical Decision Making Medical Screen Exam Complete: Yes Emergency Medical Condition: Yes Differential Diagnosis Altered mental status, mental retardation, depression, anxiety Narrative Course 22-year-old male presents to emergency department by john paul mustafa after disrobing and escaping from his assisted living facility. Patient is autistic and has some mental retardation. According to staff patient's baseline is altered and is acting as usual. Patient has no complaints. Apparently has not taken his medication which may have contributed to his current condition. Patient required physical and chemical restraints for concern of harming himself or others. Vital signs stable Physical exam consistent with a mentally retarded 22-year-old male. Pleasant. No neurological deficits. Patient is medically cleared to see psychiatry for evaluation. Diagnosis Primary Impression: Adjustment disorder with mixed disturbance of emotions and conduct Additional Impression: Mental retardation Scripts Quetiapine (Seroquel) 25 Mg Tab 25 MG PO BID for Agitation, #60 TAB 0 Refills Prov: Anita Read [employer] SALES TRAINER 04/01/17 Quetiapine (Seroquel) 50 Mg Tab 50 MG PO HS for Anxiety and/or Insomnia, #30 TAB 0 Refills Prov: Anita Read 04/01/17 Condition: Stable Starla Kaufman Apr 01, 2017 12:01
[2017-04-01] MEDS ORDERED: SERO50TA PO (18:25)
[2017-04-01] MEDS ORDERED: SERO25TA PO (18:26)
[2017-04-01 19:59] VITALS: BP 126/66; PULSE 91; RESP 18; TEMP 98.2; O2SAT 100
--- NOTE | 2017-04-01 20:07 | PD ---
Physical Exam Time Seen by Provider: 20:00 Data Data Last Documented VS Vital Signs Date Time Temp Pulse Resp B/P (MAP) Pulse Ox O2 Delivery O2 Flow Rate FiO2 04/01/17 19:59 98.2 91 18 126/66 (86) 100 Room Air Orders Orders Ziprasidone Inj (Geodon Inj) (04/01/17 11:30) Diphenhydramine Inj (Benadryl Inj) (04/01/17 11:30) Midazolam Inj (Versed Inj) (04/01/17 11:30) Restraints Violent (04/01/17 11:22) Diet Regular Basic (04/01/17 Dinner) Ed Discharge Order (04/01/17 20:11) MDM Medical Record Reviewed: Yes Supervised Visit with LORENZA: No Narrative Course Please see previous provider's notes. This patient's Youssef act has been lifted and the patient has been cleared by psychiatry. He has no medical issues that would warrant additional hospitalization. He is stable for discharge. Diagnosis Primary Impression: Adjustment disorder with mixed disturbance of emotions and conduct Additional Impression: Mental retardation Patient Instructions: General Instructions Departure Forms: Tests/Procedures Scripts Quetiapine (Seroquel) 25 Mg Tab 25 MG PO BID for Agitation, #60 TAB 0 Refills Prov: Read,Anita Monalisa Juárez [employer]ANCE SCOUT 04/01/17 Quetiapine (Seroquel) 50 Mg Tab 50 MG PO HS for Anxiety and/or Insomnia, #30 TAB 0 Refills Prov: Read,Anita Monalisa Juárez [employer]ANCE SCOUT 04/01/17 Disposition: 03 DISCHARGE TO SNF Condition: Stable Amador Luna Apr 01, 2017 20:07
[2017-04-01 20:10] VITALS: BP 126/66; PULSE 90; RESP 16; TEMP 98.6; O2SAT 100
== END 2017-04-01 20:11 ==
LOC: NEDAMB 10:50 → NEPJ 20:11
DX: F43.25 Adjustment disorder with mixed disturbance of emotions and conduct (principal); F79 Unspecified intellectual disabilities; F84.0 Autistic disorder; I10 Essential (primary) hypertension; Q03.1 Atresia of foramina of Magendie and Luschka; Z78.1 Physical restraint status; Z79.899 Other long term (current) drug therapy; Z88.8 Allergy status to other drugs, medicaments and biological substances
CPT/HCPCS: 96372; 99285; J1200; J2250; J3486

== ENCOUNTER 2017-04-02 00:26 | Inpatient (IN) | payer MEDICAID, OTHER ==
[~2017-04-02] VITALS: Ht 121.9 cm; Wt 61.9 kg
[~2017-04-02 00:26] MED LIST changes: +SERO25TA PO; +SERO50TA PO
[2017-04-02 00:34] VITALS: BP 139/84; PULSE 88; RESP 18; TEMP 98.9; O2SAT 88
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
[2017-04-02 06:17] VITALS: RESP 16
[2017-04-02] MEDS ORDERED: ZIPRASIDONE MESYLATE 20 MG VIAL IM ONE (10:45)
[2017-04-02] MEDS ORDERED: diphenhydrAMINE HCL 50 MG/ML VIAL IM ONE (10:45)
[2017-04-02] MEDS ORDERED: MIDAZOLAM HCL 2 MG/2 ML VIAL IM ONE (10:45)
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
[2017-04-02 15:37] VITALS: BP 105/58; PULSE 68; RESP 16; TEMP 97; O2SAT 100
[2017-04-02] MEDS: PHENYTOIN SODIUM 100 MG CAP PO SCH ×2 (18:05→22:09)
[2017-04-02 18:12] VITALS: BP 125/70; PULSE 83; RESP 18; TEMP 98.8; O2SAT 99
[2017-04-02] MEDS: LISINOPRIL 20 MG TAB PO SCH (18:17)
[2017-04-02] MEDS: QUEtiapine FUMARATE 25 MG TAB PO SCH ×2 (21:00)
[2017-04-02 21:50] VITALS: BP 132/65; PULSE 99; RESP 18; TEMP 97.6; O2SAT 99
[2017-04-03 06:58] VITALS: BP 137/84; PULSE 82; RESP 17; TEMP 98.2; O2SAT 96
[2017-04-03] MEDS: PHENYTOIN SODIUM 100 MG CAP PO SCH ×3 (07:51→21:56)
[2017-04-03] MEDS: LISINOPRIL 20 MG TAB PO SCH (08:36)
[2017-04-03] MEDS: QUEtiapine FUMARATE 25 MG TAB PO SCH ×3 (08:36→21:56)
[2017-04-03 13:38] VITALS: BP 123/71; PULSE 91; RESP 18; TEMP 97.6; O2SAT 98
[2017-04-03 18:15] VITALS: BP 136/75; PULSE 90; RESP 18; O2SAT 97
[2017-04-03 22:25] VITALS: BP 145/64; PULSE 84; RESP 16; TEMP 97.1
[2017-04-04] MEDS: PHENYTOIN SODIUM 100 MG CAP PO SCH ×3 (06:21→22:30)
[2017-04-04 06:28] VITALS: BP 129/73; PULSE 105; RESP 20; O2SAT 97
--- NOTE | 2017-04-04 07:24 | PD ---
Physical Exam Time Seen by Provider: 10:49 Narrative I was asked to reexamine the patient. Data Data Last Documented VS Vital Signs Date Time Temp Pulse Resp B/P (MAP) Pulse Ox O2 Delivery O2 Flow Rate FiO2 04/04/17 06:28 105 20 129/73 (91) 97 04/03/17 22:25 97.1 04/03/17 18:15 Room Air Orders Orders Psych Screen (04/02/17 00:38) Diet Regular Basic (04/02/17 Breakfast) Case Management Consult (04/02/17 ) Ziprasidone Inj (Geodon Inj) (04/02/17 10:45) Diphenhydramine Inj (Benadryl Inj) (04/02/17 10:45) Midazolam Inj (Versed Inj) (04/02/17 10:45) Diet Regular Basic (04/02/17 Lunch) Lisinopril (Prinivil) (04/02/17 13:45) Phenytoin (Dilantin) (04/02/17 14:00) Quetiapine (Seroquel) (04/02/17 13:45) Quetiapine (Seroquel) (04/02/17 21:00) Diet Regular Basic (04/02/17 Dinner) Diet Regular Basic (04/03/17 Breakfast) Diet Regular Basic (04/03/17 Lunch) Diet Regular Basic (04/03/17 Dinner) Diet Regular Basic (04/04/17 Breakfast) [facility] Supervised Visit with LORENZA: No Narrative Course I was asked to reexamine the patient. The patient has no medical complaints at this time. He denies pain. He says he is happy and waiting to be laced in a facility. He says he decided to go to a new facility. He denies suicidal or homicidal ideations. Denies hallucinations. Patient appears well and comfortable. GENERAL: Well-nourished, well-developed black male patient, in no acute distress SKIN: Warm and dry. HEAD: Atraumatic. Normocephalic. EYES: Pupils equal and round. ENT: Mucosa pink and moist. NECK: Supple. Trachea midline. CARDIOVASCULAR: Regular rate and rhythm. No murmur appreciated. RESPIRATORY: No accessory muscle use. Clear to auscultation. Breath sounds equal bilaterally. GASTROINTESTINAL: Abdomen soft, non-tender, nondistended. Hepatic and splenic margins not palpable. Bowel sounds are active 4 quadrants. NEUROLOGICAL: Awake and alert. Oriented 3. No obvious cranial nerve deficits. Motor grossly within normal limits. Normal speech. Moves all extremities. 5/5 strength to all extremities. PSYCHIATRIC: No delusional thought processes. No hallucinations. Diagnosis Primary Impression: Medical clearance for psychiatric admission Keerthi Garcia Apr 04, 2017 07:24
[2017-04-04] MEDS: QUEtiapine FUMARATE 25 MG TAB PO SCH (08:28)
[2017-04-04] MEDS: LISINOPRIL 20 MG TAB PO SCH (08:28)
[2017-04-04 10:00] VITALS: BP 122/67; PULSE 82; RESP 18; TEMP 98.4; O2SAT 82; O2SAT 99
[2017-04-04] MEDS ORDERED: ALUMINUM/MAGNESIUM/SIMETH 30 ML CUP PO PRN (17:30)
[2017-04-04] MEDS ORDERED: MAGNESIUM HYDROXIDE SUSP 30 ML CUP PO PRN (17:30)
[2017-04-04] MEDS ORDERED: ACETAMINOPHEN 325 MG TAB PO PRN (17:30)
--- NOTE | 2017-04-04 17:37 | HHI.HP ---
Provisional Diagnosis Admission Date Apr 04, 2017 at 17:18 [place] I. Intermittent explosive disorder Certification of Person's Competence To Provide Express and Informed Consent I have personally examined Elia Cabello , a person being served at [facility] on, Apr 04, 2017 17:26. Express and informed consent means consent voluntarily given in writing, by a competent person, after sufficient explanation and disclosure of the subject matter involved to enable the person to make a knowing and willful decision without any element of force, fraud, deceit, duress, or other form of constraint or coercion. This person is 18 years of age or older, is not now known to be incompetent to consent to treatment with a guardian advocate, and does not have a health care surrogate or proxy currently making medical treatment decisions. I have found this person to be one of the following: [] Competent to provide express and informed consent, as defined above, for voluntary admission to this facility and is competent to provide express and informed consent for treatment. He/she has the consistent capacity to make well reasoned, willful, and knowing decisions concerning his or her medical or mental health treatment. The person fully and consistently understands the purpose of the admission for examination/placement and is fully capable of personally exercising all rights assured [place] [x] Incompetent to provide express and informed consent to voluntary admission, and this is incompetent to provide express and informed consent to treatment. The person must be transferred to involuntary status and a petition for a guardian advocate filed with the Circuit Court. [] Refusing to provide express and informed consent to voluntary admission but is competent to provide express and informed consent for treatment. The person must be discharged or transferred to involuntary status. Form shall be completed within 24 hours of a person's arrival at the receiving facility and filed in the clinical record of each person: 1. Admitted on a voluntary basis 2. Permitted to provide express and informed consent to his/her own treatment 3. Allowed to transfer from involuntary to voluntary status 4. Prior to permitting a person to consent to his or her own treatment after having been previously found incompetent to consent to treatment. 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 He has a recent history of disrobing multiple times , fleeing his residence and walking in the middle of the road. He has been observed and evaluated over the last several days, here in the emergency department. On several occasions, he has become physically aggressive and physically threatening towards staff and other patients. He has poor impulse control and he is in danger of harming himself and/or others. He has required frequent redirection and emergency treatment orders with injectable medications. He cannot be discharged to his [facility] at this time. He says that he has been mistreated there he doesn't want to go back. Patient reports that he denies suicidal and homicidal ideation, denies visual and auditory hallucinations. He reports that he has been taking his medications without medical side effects. As per nurse in charge, the patient has been only intermittently calm and following directions and recommendations in the ER. Review of Systems ROS Limitations: Clinical Condition Psychiatric: COMPLAINS OF: Anxiety, Agitation Except as stated in HPI: all other systems reviewed are Neg Past Psych History Psychological trauma history Unknown. Patient poor historian. Violence risk - others (6 mos) High Violence risk - self (6 mos) High Substance Abuse History Drugs/Alcohol past 12 months Denied Past Family Social History Coded Allergies: haloperidol (Verified Adverse Reaction, Severe, tardive dyskinesia, change in mentation, rhabdomyolysis, , 03/26/17) Active Scripts Quetiapine (Seroquel) 25 Mg Tab, 25 MG PO BID for Agitation, #60 TAB 0 Refills Prov:Read,Anita Monalisa Juárez SERVICE OFFICER 04/01/17 Quetiapine (Seroquel) 50 Mg Tab, 50 MG PO HS for Anxiety and/or Insomnia, #30 TAB 0 Refills Prov:Read,Anita Monalisa Juárez SERVICE OFFICER 04/01/17 [Lactulose Liq] 30 ML SYRP No Conflict Check, 30 ML PO DAILY Y for SEE LABEL COMMENTS for 30 Days, #900 ML Prov:Shirin Raza 03/30/17 Sennosides (Senna-Lax) 8.6 Mg Tab, 17.2 MG PO Q12H Y for SEE LABEL COMMENTS for 30 Days, #120 TAB Prov:Shirin RazaP 03/30/17 Phenytoin Extended (Dilantin) 100 Mg Cap, 100 MG PO Q8HR for seizures for 30 Days, #90 CAP Prov:Shirin Raza SERVICE OFFICER 03/30/17 Lisinopril (Lisinopril) 20 Mg Tab, 20 MG PO DAILY for hypertension for 30 Days, #30 TAB Prov:Shirin Raza SERVICE OFFICER 03/30/17 Amlodipine (Norvasc) 10 Mg Tab, 10 MG PO DAILY for hypertension for 30 Days, # 30 TAB Prov:Shirin Raza SERVICE OFFICER 03/30/17 Lorazepam (Ativan) 0.5 Mg Tab, 0.5 MG PO Q8H Y for ANXIETY AND/OR AGITATION, # 30 TAB 0 Refills Prov:Miguel Ace MD 11/02/16 Current Medications Medications (Trade) Dose Ordered Sig/Carol Route Start Time Stop Time Status Last Admin (Prinivil) 20 mg DAILY PO 04/02/17 13:45 04/04/17 08:28 (Dilantin) 100 mg Q8HR PO 04/02/17 14:00 04/04/17 14:10 (SEROquel) 25 mg BID PO 04/02/17 13:45 04/04/17 08:28 (SEROquel) 50 mg HS PO 04/02/17 21:00 04/03/17 21:56 (Ativan) 1 mg Q6H PRN PO 04/04/17 17:30 (Ativan Inj) 1 mg Q6H PRN IM 04/04/17 17:30 (Tylenol) 650 mg Q4H PRN PO 04/04/17 17:30 (Milk Of Magnesia Liq) 30 ml DAILY PRN PO 04/04/17 17:30 (Mag-Al Plus Susp Liq) 30 ml Q6H PRN PO 04/04/17 17:30 (Atarax) 50 mg Q6H PRN PO 04/04/17 17:30 Family Psych History Unknown. Patient poor historian. Social History Unemployed. Receives Social Security disability. Being followed by [employer]. Does not use alcohol and drugs. No family support. Patient's Strengths (min. 2) Resilient and has access to healthcare. Physical Exam GENERAL: SKIN: Warm and dry. HEAD: Normocephalic. EYES: No scleral icterus. No injection or drainage. NECK: Supple, trachea midline. No JVD or lymphadenopathy. CARDIOVASCULAR: Regular rate and rhythm without murmurs, gallops, or rubs. RESPIRATORY: Breath sounds equal bilaterally. No accessory muscle use. GASTROINTESTINAL: Abdomen soft, non-tender, nondistended. MUSCULOSKELETAL: No cyanosis, or edema. BACK: Nontender without obvious deformity. No CVA tenderness. Vital Signs Vital Signs Date Time Temp Pulse Resp B/P (MAP) Pulse Ox O2 Delivery O2 Flow Rate FiO2 04/04/17 10:00 98.4 82 18 122/67 (85) 82 Room Air Mental Status Examination Appearance: Disheveled Consciousness: Alert Orientation: Person, Place Motor Activity: Normal gait Speech: Hesitant Language: Other Fund of Knowledge: Inadequate Attention and Concentration: Inadequate Memory: Impaired Mood: Anxious Affect: Anxious Thought Process & Associations: Other Thought Content: Bizarre thinking Hallucination Type: None Delusion Type: None Suicidal Ideation: No Suicidal Plan: No Suicidal Intention: No Homicidal Ideation: No Homicidal Plan: No Homicidal Intention: No Insight: Poor Judgment: Poor Assessment & Plan Problem List: (1) Intermittent explosive disorder ICD Codes: F63.81 - Intermittent explosive disorder Assessment & Plan Estimated LOS: days. 22-year-old male with intellectual disability, admitted for repeated episodes of violence against others. Patient felt to require medication changes as his current regimen appears to be ineffective. For this reason, he is being admitted for further evaluation and treatment. This physician has ordered a CBC and comprehensive metabolic panel to determine if the patient has any infectious process or metabolic process which is causing or contributing to his behavioral outbursts. Additionally, this physician has ordered thyroid stimulating hormone level, vitamin B 12 level and vitamin D level, again to determine if any deficiencies in this area exists that might be causing or contributing to his aggression. This physician has also ordered an EKG to determine the patient's cardiac conduction status, prior to substantial changes in his psychotropic medicines, which might adversely affects the electrical system of his heart. This physician is ordering a hospitalist consult as the patient has a history of hypertension. Finally, this physician spoke with service line order administrator Robby Santoro as well as the patient's nurse , Alberta, prior to admission, to learn more about the patient's behavior and further treatment. Case management will also be involved to assist with information gathering and disposition planning. Andi Avila MD Apr 04, 2017 17:37
[2017-04-04 18:34] VITALS: BP 161/98; PULSE 62; RESP 17; TEMP 98.2; O2SAT 99
[2017-04-04] MEDS: QUEtiapine FUMARATE 100 MG TAB PO SCH ×2 (21:00)
[2017-04-05 06:01] VITALS: BP 144/65; PULSE 62; RESP 17; TEMP 98.4; O2SAT 96
[2017-04-05] MEDS: PHENYTOIN SODIUM 100 MG CAP PO SCH ×3 (06:49→21:05)
[2017-04-05] MEDS: LISINOPRIL 20 MG TAB PO SCH (08:30)
--- NOTE | 2017-04-05 10:39 | HHI.PYPN ---
Subjective Remarks Patient seen for follow-up, chart reviewed. 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 As per chart patient was recently discharged from the ED on 04/01/16 , presented again on 04/02/17 and discharged again active facility and was brought in recently on 04 April which patient stated that he is been being being mistreated at his facility and does not want to return. Patient was found in the hallway, cooperative and stated that he had taken his clothes off the climb the fence of the basis of the living facility and just wanted to walk. When asked where he was going to whip what his plan was he stated he just wanted to walk. Patient states that he did not want to return back to his residential facility stating that "that places for animals". Patient states that he will likely with his friends does not want to return back to his residential facility. Patient denies any perceptual disturbances patient noted to have very concrete thinking due to his intellectual deficits. Review of Systems Except as stated in HPI: all other systems reviewed are Neg Mental Status Examination Appearance: Disheveled Consciousness: Alert Orientation: Person, Place Motor Activity: Normal gait Speech: Hesitant Language: Other Fund of Knowledge: Inadequate Attention and Concentration: Inadequate Memory: Impaired Mood: Anxious Affect: Anxious Thought Process & Associations: Other Thought Content: Bizarre thinking Hallucination Type: None Delusion Type: None Suicidal Ideation: No Suicidal Plan: No Suicidal Intention: No Homicidal Ideation: No Homicidal Plan: No Homicidal Intention: No Insight: Poor Judgment: Poor Results Vitals/IOs Vital Signs Date Time Temp Pulse Resp B/P (MAP) Pulse Ox O2 Delivery O2 Flow Rate FiO2 04/05/17 06:01 98.4 62 17 144/65 (91) 96 04/04/17 10:00 Room Air Assessment & Plan Problem List: (1) Intermittent explosive disorder ICD Codes: F63.81 - Intermittent explosive disorder Assessment & Plan Patient at this time is admitted to the inpatient psychiatry unit under involuntary hospitalization petition this patient is currently unable to care for self due to his intellectual deficits and poor judgment. Patient will be restarted back on his medications with upper titration as needed. Patient is pending healthcare surrogate consent to be restarted on medications. Second opinion completed for petition for involuntary hospitalization. Continue current treatment. Discharge planning in progress Justification for Cont. Inpt. At risk for further decompensation event lower level of care Discharge Planning Patient to return back to his S living facility or require a new referral to a different facility upon discharge. Magdiel Koroma MD Apr 05, 2017 10:39
--- NOTE | 2017-04-05 14:07 | EKG ---
Date Performed: 04/05/2017 Time Performed: 13:08:50 PTAGE: 22 years EKG: SINUS BRADYCARDIA WITH SHORT ID INTERVAL NONSPECIFIC T-WAVE ABNORMALITY BORDERLINE ECG Comp ared to prior electrocardiogram, rate has decreased and Nonspecific T wave changes are now present PREVIOUS TRACING : 03/26/2017 20.21 DOCTOR: Triston Aguilar Interpretating Date/Time 04/05/2017 14:06:00
[2017-04-05 15:01] LABS: AUTOMATED NEUTROPHIL # 4.8 TH/MM3 (1.8-7.7); BASOPHIL % 0.5 % (0.0-2.0); EOSINOPHIL % 0.7 % (0.0-4.0); HEMATOCRIT 40.4 % (39.0-51.0); HEMOGLOBIN 13.2 GM/DL (13.0-17.0); LYMPH % 16.5 % (9.0-44.0); LYMPHOCYTE # 1.1 TH/MM3 (1.0-4.8); MEAN CELL VOLUME 82.1 FL (80.0-100.0); MEAN CORPUSCULAR HEMOGLOBIN 26.8 PG (27.0-34.0); MEAN CORPUSCULAR HGB CONC 32.6 % (32.0-36.0); MEAN PLATELET VOLUME 9.3 FL (7.0-11.0); MONO % 8.9 % (0.0-8.0); MONOCYTE # 0.6 TH/MM3 (0-0.9); NEUT % 73.4 % (16.0-70.0); PLATELET COUNT 250 TH/MM3 (150-450); RED BLOOD COUNT 4.92 MIL/MM3 (4.50-5.90); RED CELL DISTRIBUTION WIDTH 13.7 % (11.6-17.2); WHITE BLOOD COUNT 6.6 TH/MM3 (4.0-11.0)
[2017-04-05 15:19] LABS: ALT (GPT) 80 U/L (12-78); AST (GOT) 44 U/L (15-37); BICARBONATE 30.9 MEQ/L (21.0-32.0); BLOOD UREA NITROGEN 11 MG/DL (7-18); CALCIUM 9.2 MG/DL (8.5-10.1); CHLORIDE 102 MEQ/L (98-107); CHOLESTEROL 203 MG/DL (120-200); CREATININE 1.06 MG/DL (0.60-1.30); GLOMERULAR FILTRATION RATE 105 ML/MIN (>89); GLUCOSE,RANDOM 90 MG/DL (74-106); SODIUM (NA) 140 MEQ/L (136-145); TRIGLYCERIDES 81 MG/DL (42-150)
[2017-04-05 15:45] LABS: ALKALINE PHOSPHATASE 66 U/L (45-117); CHOLESTEROL/ HDL RATIO 3.24 RATIO; HDL CHOLESTEROL 62.6 MG/DL (40.0-60.0); LDL CHOLESTEROL 124 MG/DL (0-99); TOTAL BILIRUBIN ADULT 0.1 MG/DL (0.2-1.0); TOTAL PROTEIN 7.6 GM/DL (6.4-8.2)
--- NOTE | 2017-04-05 16:32 | PD.CONS ---
[facility] By [facility]. Andi Avila Reason for Consult HTN and DMd Walker syndrome Primary Care Physician No Primary Care Physician Diagnoses: (1) Dandy Walker malformation (2) HTN (hypertension) (3) Mental retardation History of Present Illness A 22-year-old male with past medical history of Dandy-Walker syndrome, mental retardation with total self-care deficit, hypertension, seizures, and bradycardia. He presents to ED due to her recent history of disrobing and walking in the middle of the road. Patient has had episodes of aggression towards the the staff and other patients. He has been admitted to inpatient psych and medical team consulted for medical management. At the moment of my evaluation patient is cooperative and calm answering questions and in no acute distress. He denies any past medical history and states that he is doing fine. He denies headache, chest pain, shortness of breath, fever, chills, nausea, vomiting, diarrhea. He is ambulating in the conti without difficulty. Patient with a history multiple hospitalizations in the past with the most recent one dated from 11/18-03/30 secondary to Dandy-Walker syndrome, rhabdomyolysis, and seizure disorder. Patient was seen and evaluated by neurology during that hospitalization and recommendations were made for Dilantin with regular Dilantin level monitoring. As well as outpatient follow-up with neurology. Patient experienced episode of rhabdomyolysis possibly secondary to adverse Haldol reaction, he also was evaluated by cardiology due to elevated troponins. Cardiology did not feel troponin elevation was due to cardiac issues but related to Haldol reaction, no further cardiac workup recommended. Review of Systems Except as stated in HPI: all other systems reviewed are Neg Past Family Social History Allergies: Coded Allergies: haloperidol (Verified Adverse Reaction, Severe, tardive dyskinesia, change in mentation, rhabdomyolysis, , 03/26/17) Past Medical History Patient denies past medical history, however review of EMR shows the following PMH Dandy Walker Malformation Self-care deficit Mental retardation Seizures Hypertension Past Surgical History No past surgical history documented in EMR, patient denies any past surgical history. Reported Medications Reported Meds & Active Scripts Active Seroquel (Quetiapine Fumarate) 25 Mg Tab 25 Mg PO BID Seroquel (Quetiapine Fumarate) 50 Mg Tab 50 Mg PO HS [Lactulose] 30 ML Syrp 30 Ml PO DAILY PRN 30 Days Senna-Lax (Sennosides) 8.6 Mg Tab 17.2 Mg PO Q12H PRN 30 Days Dilantin (Phenytoin Extended) 100 Mg Cap 100 Mg PO Q8HR 30 Days Lisinopril 20 Mg Tab 20 Mg PO DAILY 30 Days Norvasc (Amlodipine Besylate) 10 Mg Tab 10 Mg PO DAILY 30 Days Ativan (Lorazepam) 0.5 Mg Tab 0.5 Mg PO Q8H PRN Active Ordered Medications Current Medications Medications (Trade) Dose Ordered Sig/Carol Route Start Time Stop Time Status Last Admin (Prinivil) 20 mg DAILY PO 04/02/17 13:45 04/05/17 08:30 (Dilantin) 100 mg Q8HR PO 04/02/17 14:00 04/05/17 13:53 (Ativan) 1 mg Q6H PRN PO 04/04/17 17:30 Future Hold (Ativan Inj) 1 mg Q6H PRN IM 04/04/17 17:30 Future Hold (Tylenol) 650 mg Q4H PRN PO 04/04/17 17:30 (Milk Of Magnesia Liq) 30 ml DAILY PRN PO 04/04/17 17:30 (Mag-Al Plus Susp Liq) 30 ml Q6H PRN PO 04/04/17 17:30 (Atarax) 50 mg Q6H PRN PO 04/04/17 17:30 Future Hold (SEROquel) 100 mg BID PO 04/04/17 21:00 Future Hold (SEROquel) 200 mg HS PO 04/04/17 21:00 Future Hold Family History Denies past family history Social History Denies tobacco use, alcohol use, illicit drug use. Physical Exam Vital Signs Vital Signs Date Time Temp Pulse Resp B/P (MAP) Pulse Ox O2 Delivery O2 Flow Rate FiO2 04/05/17 06:01 98.4 62 17 144/65 (91) 96 04/04/17 18:34 98.2 62 17 161/98 (119) 99 04/04/17 18:25 Physical Exam GENERAL: This is a well-nourished, pleasant patient, in no apparent distress. Child like demeanor. SKIN: No rashes, ecchymoses or lesions. Cool and dry. HEAD: Atraumatic. Normocephalic. No temporal. EYES: Pupils equal round and reactive. No injection or drainage. ENT: Nose without bleeding, purulent drainage or septal hematoma. Airway patent. NECK: Trachea midline. No JVD or lymphadenopathy. Supple, nontender. CARDIOVASCULAR: Regular rate and rhythm without murmurs, gallops, or rubs. RESPIRATORY: Clear to auscultation. Breath sounds equal bilaterally. No wheezes , rales, or rhonchi. GASTROINTESTINAL: Abdomen soft, non-tender, nondistended. No guarding. MUSCULOSKELETAL: Extremities without clubbing, cyanosis, or edema. No joint tenderness, effusion, or edema noted. NEUROLOGICAL: Awake and alert. Moves all extremities spontaneously, ambulating without difficulties. Motor and sensory grossly within normal limits. Five out of 5 muscle strength in all muscle groups. Normal speech. Laboratory Laboratory Tests Test 04/05/17 13:39 White Blood Count 6.6 Red Blood Count 4.92 Hemoglobin 13.2 Hematocrit 40.4 Mean Corpuscular Volume 82.1 Mean Corpuscular Hemoglobin 26.8 Mean Corpuscular Hemoglobin Concent 32.6 Red Cell Distribution Width 13.7 Platelet Count 250 Mean Platelet Volume 9.3 Neutrophils (%) (Auto) 73.4 Lymphocytes (%) (Auto) 16.5 Monocytes (%) (Auto) 8.9 Eosinophils (%) (Auto) 0.7 Basophils (%) (Auto) 0.5 Neutrophils # (Auto) 4.8 Lymphocytes # (Auto) 1.1 Monocytes # (Auto) 0.6 Eosinophils # (Auto) 0.0 Basophils # (Auto) 0.0 CBC Comment DIFF FINAL Differential Comment Blood Urea Nitrogen 11 Creatinine 1.06 Random Glucose 90 Total Protein 7.6 Albumin 4.0 Calcium Level 9.2 Alkaline Phosphatase 66 Aspartate Amino Transf (AST/SGOT) 44 Alanine Aminotransferase (ALT/SGPT) 80 Total Bilirubin 0.1 Sodium Level 140 Potassium Level 3.9 Chloride Level 102 Carbon Dioxide Level 30.9 Anion Gap 7 Estimat Glomerular Filtration Rate 105 Triglycerides Level 81 Cholesterol Level 203 LDL Cholesterol 124 HDL Cholesterol 62.6 Cholesterol/HDL Ratio 3.24 Vitamin B12 Level 717 25-Hydroxy Vitamin D Total 14.1 Thyroid Stimulating Hormone 3rd Gen 1.070 Result Diagram: 04/05/17 1339 04/05/17 1339 Assessment and Plan Assessment and Plan A 22-year-old male with past medical history of Dandy-Walker syndrome, mental retardation with total self-care deficit, hypertension, seizures, and bradycardia. He presents to ED due to her recent history of disrobing and walking in the middle of the road. Patient has had episodes of aggression towards the the staff and other patients. He has been admitted to inpatient psych and medical team consulted for medical management. Intermittent explosive disorder - Treatment per psych - Currently pending healthcare surrogate consent to be restated Dandy-Walker syndrome Mental retardation - Chronic issue, patient lives at home. - Case management assisting for possible placement Seizure - Continue Dilantin - Monitor of seizure activity - Dilantin levels tomorrow in the AM HTN, BP elevated - Chronic issue patient on Lisinopril 20mg, but still hypertensive - Will add Norvasc 5mg - Trend BP and adjust medications as needed Elevated LFT's - Possibly secondary to recent rhabdo. AST continues to decrease, ALT at 80 slight increase from 78 - Continue to monitor Vitamin D Deficiency - Replacement with Cholecalciferol 1,000units PO dialy VTE: ambulating Code Status Full code Discussed Condition With Nurse Problem Qualifiers (1) HTN (hypertension): Qualified Codes: I10 - Essential (primary) hypertension Radha Schultz Apr 05, 2017 16:32
[2017-04-05 17:17] LABS: HEMOGLOBIN A1C 5.4 % (4.3-6.0)
[2017-04-05 18:16] VITALS: BP 137/83; PULSE 82; RESP 16; TEMP 97.6; O2SAT 99
[2017-04-06 05:54] VITALS: BP 156/84; PULSE 54; RESP 17; TEMP 98.3; O2SAT 100
[2017-04-06] MEDS: PHENYTOIN SODIUM 100 MG CAP PO SCH ×3 (06:00→22:00)
[2017-04-06] MEDS: LISINOPRIL 20 MG TAB PO SCH (09:50)
[2017-04-06] MEDS: CHOLECALCIFEROL (VIT D3) 1000 UNIT TAB PO SCH (09:50)
--- NOTE | 2017-04-06 15:12 | HHI.PR ---
Subjective Remarks Follow-up visit on 22-year-old with past medical history of Dandy-Walker syndrome, mental retardation with total self-care deficit, hypertension, seizures, and bradycardia. Patient is seen and examined in his room, he denies any chest pain, SOB, fever, chills, nausea, vomiting, or diarrhea.He denies headache, or lightheadedness. Reports he is doing well and that he like his blanket. No concerns or questions for me. Objective Vitals Vital Signs Date Time Temp Pulse Resp B/P (MAP) Pulse Ox O2 Delivery O2 Flow Rate FiO2 04/06/17 05:54 98.3 54 17 156/84 (108) 100 04/05/17 18:16 97.6 82 16 137/83 (101) 99 Result Diagram: 04/05/17 1339 04/05/17 1339 Objective Remarks GENERAL: This is a well-nourished, pleasant patient, in no apparent distress. Child like demeanor. SKIN: No rashes, ecchymoses or lesions. Cool and dry. HEAD: Atraumatic. Normocephalic. EYES: Pupils equal round and reactive. No injection or drainage. ENT: Nose without bleeding, purulent drainage or septal hematoma. Airway patent. NECK: Trachea midline. CARDIOVASCULAR: Regular rate and rhythm without murmurs, gallops, or rubs. RESPIRATORY: Clear to auscultation. Breath sounds equal bilaterally. No wheezes , rales, or rhonchi. GASTROINTESTINAL: Abdomen soft, non-tender, nondistended. No guarding. MUSCULOSKELETAL: Extremities without clubbing, cyanosis, or edema. No joint tenderness, effusion, or edema noted. NEUROLOGICAL: Awake and alert. Moves all extremities spontaneously, ambulating without difficulties. Motor and sensory grossly within normal limits. Normal speech. 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 He presents to ED due to her recent history of disrobing and walking in the middle of the road. Patient has had episodes of aggression towards the the staff and other patients. He has been admitted to inpatient psych and medical team consulted for medical management. Intermittent explosive disorder - Treatment per psych Dandy-Walker syndrome Mental retardation - Chronic issue, patient lives at home. - Case management assisting for possible placement Seizure,controlled - Dilantin level this AM 8.1 - Increase Dilantin to 150mg every 8hrs, recheck levels 04/09 - Monitor of seizure activity HTN, BP elevated - Chronic issue patient on Lisinopril 20mg, but still hypertensive - Will add Norvasc 5mg - Trend BP and adjust medications as needed Vitamin D Deficiency - Replacement with Cholecalciferol 1,000units PO daily. VTE: ambulating Problem Qualifiers (1) HTN (hypertension): Qualified Codes: I10 - Essential (primary) hypertension Radha Schultz Apr 06, 2017 15:12
[2017-04-06] MEDS ORDERED: PHENYTOIN SODIUM 100 MG CAP PO ONE (15:15)
[2017-04-06 18:47] VITALS: BP 130/62; PULSE 65; RESP 17; TEMP 98.2; O2SAT 98
[2017-04-06] MEDS ORDERED: LORazepam 2 MG/ML VIAL IM ONE (20:34)
[2017-04-06] MEDS ORDERED: LORazepam 2 MG/ML VIAL ONE (20:34)
[2017-04-06] MEDS ORDERED: diphenhydrAMINE HCL 50 MG/ML VIAL IM ONE (20:34)
[2017-04-06] MEDS ORDERED: ZIPRASIDONE MESYLATE 20 MG VIAL IM ONE ×2 (20:34)
[2017-04-06] MEDS ORDERED: diphenhydrAMINE HCL 50 MG/ML VIAL ONE (20:34)
[2017-04-07] MEDS: PHENYTOIN SODIUM 100 MG CAP PO SCH (05:59)
[2017-04-07] MEDS: amLODIPine BESYLATE 5 MG TAB PO SCH (08:51)
[2017-04-07] MEDS: LISINOPRIL 20 MG TAB PO SCH (08:51)
[2017-04-07] MEDS: CHOLECALCIFEROL (VIT D3) 1000 UNIT TAB PO SCH (08:51)
[2017-04-07 09:07] LABS: ALBUMIN 3.8 GM/DL (3.4-5.0); AST (GOT) 37 U/L (15-37); BICARBONATE 28.5 MEQ/L (21.0-32.0); BLOOD UREA NITROGEN 20 MG/DL (7-18); CALCIUM 8.7 MG/DL (8.5-10.1); CHLORIDE 102 MEQ/L (98-107); GLOMERULAR FILTRATION RATE 91 ML/MIN (>89); GLUCOSE,RANDOM 113 MG/DL (74-106); SODIUM (NA) 136 MEQ/L (136-145)
[2017-04-07 09:11] LABS: ALKALINE PHOSPHATASE 70 U/L (45-117); ALT (GPT) 74 U/L (12-78); PHENYTOIN (DILANTIN) 8.1 MCG/ML (10.0-20.0); TOTAL BILIRUBIN ADULT 0.2 MG/DL (0.2-1.0); TOTAL PROTEIN 7.5 GM/DL (6.4-8.2)
[2017-04-07] MEDS: PHENYTOIN SUSP 100 MG/4 ML CUP PO SCH ×2 (14:22→22:00)
--- NOTE | 2017-04-07 15:00 | HHI.PYPN ---
Subjective Remarks This is the psychiatric progress note for April 06, 2017. Patient appears more calm today. Cooperating with interviewers. Not as restless. States he is tolerating increased dose of Seroquel. Vital signs reviewed for possible hypotension, which patient does not have. Labs reviewed as well for blood dyscrasias as we titrate up the Seroquel. Review of Systems Except as stated in HPI: all other systems reviewed are Neg Mental Status Examination Appearance: Disheveled Consciousness: Alert Orientation: Person, Place Motor Activity: Normal gait Speech: Hesitant Language: Other Fund of Knowledge: Inadequate Attention and Concentration: Inadequate Memory: Impaired Mood: Anxious Affect: Anxious Thought Process & Associations: Other Thought Content: Bizarre thinking Hallucination Type: None Delusion Type: None Suicidal Ideation: No Suicidal Plan: No Suicidal Intention: No Homicidal Ideation: No Homicidal Plan: No Homicidal Intention: No Insight: Poor Judgment: Impulsive Results Labs Test 04/07/17 08:10 Blood Urea Nitrogen 20 MG/DL Creatinine 1.20 MG/DL Random Glucose 113 MG/DL Total Protein 7.5 GM/DL Albumin 3.8 GM/DL Calcium Level 8.7 MG/DL Alkaline Phosphatase 70 U/L Aspartate Amino Transf (AST/SGOT) 37 U/L Alanine Aminotransferase (ALT/SGPT) 74 U/L Total Bilirubin 0.2 MG/DL Sodium Level 136 MEQ/L Potassium Level 3.6 MEQ/L Chloride Level 102 MEQ/L Carbon Dioxide Level 28.5 MEQ/L Anion Gap 6 MEQ/L Estimat Glomerular Filtration Rate 91 ML/MIN Phenytoin (Dilantin) Level 8.1 MCG/ML Vitals/IOs Vital Signs Date Time Temp Pulse Resp B/P (MAP) Pulse Ox O2 Delivery O2 Flow Rate FiO2 04/06/17 18:47 98.2 65 17 130/62 (84) 98 04/04/17 10:00 Room Air Assessment & Plan Problem List: (1) Intermittent explosive disorder ICD Codes: F63.81 - Intermittent explosive disorder Assessment & Plan Estimated LOS: days. Patient's Seroquel has been substantially increased in dose. He appears to be tolerating this medicine well but it will be several days before the full effect is notable. This physician reviewed the blood work and the vital signs as patient is on multiple medications which can adversely affect his blood counts and his blood pressure. We will continue to observe and evaluate him for response to medication changes and tolerability. Justification for Cont. Inpt. Evaluating for medication efficacy and tolerability. Andi Avila MD Apr 07, 2017 15:00
--- NOTE | 2017-04-07 15:02 | HHI.PYPN ---
Subjective Remarks Patient evaluated in day room. He is a social but calm. He has been much more cooperative since his admission. Continues to tolerate Seroquel. He has no subjective complaints. Review of Systems Except as stated in HPI: all other systems reviewed are Neg Mental Status Examination Appearance: Disheveled Consciousness: Alert Orientation: Person, Place Motor Activity: Normal gait Speech: Hesitant Language: Other Fund of Knowledge: Inadequate Attention and Concentration: Inadequate Memory: Impaired Mood: Anxious Affect: Anxious Thought Process & Associations: Other Thought Content: Bizarre thinking Hallucination Type: None Delusion Type: None Suicidal Ideation: No Suicidal Plan: No Suicidal Intention: No Homicidal Ideation: No Homicidal Plan: No Homicidal Intention: No Insight: Fair Judgment: Impulsive Results Labs Test 04/07/17 08:10 Blood Urea Nitrogen 20 MG/DL Creatinine 1.20 MG/DL Random Glucose 113 MG/DL Total Protein 7.5 GM/DL Albumin 3.8 GM/DL Calcium Level 8.7 MG/DL Alkaline Phosphatase 70 U/L Aspartate Amino Transf (AST/SGOT) 37 U/L Alanine Aminotransferase (ALT/SGPT) 74 U/L Total Bilirubin 0.2 MG/DL Sodium Level 136 MEQ/L Potassium Level 3.6 MEQ/L Chloride Level 102 MEQ/L Carbon Dioxide Level 28.5 MEQ/L Anion Gap 6 MEQ/L Estimat Glomerular Filtration Rate 91 ML/MIN Phenytoin (Dilantin) Level 8.1 MCG/ML Vitals/IOs Vital Signs Date Time Temp Pulse Resp B/P (MAP) Pulse Ox O2 Delivery O2 Flow Rate FiO2 04/06/17 18:47 98.2 65 17 130/62 (84) 98 04/04/17 10:00 Room Air Assessment & Plan Problem List: (1) Intermittent explosive disorder ICD Codes: F63.81 - Intermittent explosive disorder Assessment & Plan Estimated LOS: days. We will continue to monitor as dose of Seroquel has been increased to 400 mg per day from approximately 100 mg per day. Patient tolerates medicine and it appears to be starting to work with regard to his mood stability, anxiety and impulsivity. Justification for Cont. Inpt. Monitoring increased dose of Seroquel for efficacy and tolerability. Andi Avila MD Apr 07, 2017 15:02
[2017-04-07 17:15] VITALS: BP 115/56; PULSE 87; RESP 18; TEMP 98.1; O2SAT 96
[2017-04-08] MEDS: PHENYTOIN SUSP 100 MG/4 ML CUP PO SCH ×3 (06:00→21:43)
[2017-04-08 06:13] VITALS: BP 121/67; PULSE 92; RESP 18; TEMP 98.1; O2SAT 98
[2017-04-08] MEDS: amLODIPine BESYLATE 5 MG TAB PO SCH (08:00)
[2017-04-08] MEDS: CHOLECALCIFEROL (VIT D3) 1000 UNIT TAB PO SCH (08:00)
[2017-04-08] MEDS: LISINOPRIL 20 MG TAB PO SCH (08:00)
--- NOTE | 2017-04-08 13:30 | HHI.PR ---
Subjective Remarks Follow-up visit on 22-year-old with past medical history of Dandy-Walker syndrome, mental retardation with total self-care deficit, hypertension, seizures, and bradycardia. Patient is seen ambulating in psychiatry hallway, examined in his room. Patient reports he is doing okay, denies any headaches, fevers, chills, nausea, vomiting, diarrhea. Denies any shortness of breath, chest pain, or headache. Objective Vitals Vital Signs Date Time Temp Pulse Resp B/P (MAP) Pulse Ox O2 Delivery O2 Flow Rate FiO2 04/08/17 06:13 98.1 92 18 121/67 (85) 98 04/07/17 17:15 98.1 87 18 115/56 (75) 96 Result Diagram: 04/05/17 1339 04/07/17 0810 Objective Remarks GENERAL: This is a well-nourished, pleasant patient, in no apparent distress. Child like demeanor. SKIN: No rashes, ecchymoses or lesions. Cool and dry. HEAD: Atraumatic. Normocephalic. EYES: Pupils equal round and reactive. No injection or drainage. ENT: Airway patent. NECK: Trachea midline. CARDIOVASCULAR: Regular rate and rhythm without murmurs, gallops, or rubs. RESPIRATORY: Clear to auscultation. Breath sounds equal bilaterally. No wheezes , rales, or rhonchi. GASTROINTESTINAL: Abdomen soft, non-tender, nondistended. No guarding. MUSCULOSKELETAL: Extremities without clubbing, cyanosis, or edema. No joint tenderness, effusion, or edema noted. NEUROLOGICAL: Awake and alert. Moves all extremities spontaneously, ambulating without difficulties. Motor and sensory grossly within normal limits. Normal speech. 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 He presents to ED due to her recent history of disrobing and walking in the middle of the road. Patient has had episodes of aggression towards the the staff and other patients. He has been admitted to inpatient psych and medical team consulted for medical management. Intermittent explosive disorder - Treatment per psych Dandy-Walker syndrome Mental retardation - Chronic issue, patient lives at home. - Case management assisting for possible placement Seizure,controlled - Dilantin level this AM 8.1 - Increase Dilantin to 150mg every 8hrs, recheck levels tomorrow - Monitor of seizure activity HTN, BP elevated - Chronic issue patient on Lisinopril 20mg and Norvasc, BP stable - Monitor BP Vitamin D Deficiency - Replacement with Cholecalciferol 1,000units PO daily. VTE: ambulating Problem Qualifiers (1) HTN (hypertension): Qualified Codes: I10 - Essential (primary) hypertension Radha Schultz Apr 08, 2017 13:29
[2017-04-08 17:30] VITALS: BP 120/57; PULSE 74; RESP 18; TEMP 98.6; O2SAT 97
[2017-04-09] MEDS: PHENYTOIN SUSP 100 MG/4 ML CUP PO SCH ×3 (05:26→21:24)
[2017-04-09 06:21] VITALS: BP 127/75; PULSE 85; RESP 16; TEMP 98.3; O2SAT 98
[2017-04-09] MEDS: amLODIPine BESYLATE 5 MG TAB PO SCH (08:10)
[2017-04-09] MEDS: LISINOPRIL 20 MG TAB PO SCH (08:11)
[2017-04-09] MEDS: CHOLECALCIFEROL (VIT D3) 1000 UNIT TAB PO SCH (08:11)
--- NOTE | 2017-04-09 13:11 | HHI.PR ---
Subjective Remarks Follow-up visit on 22-year-old with past medical history of Dandy-Walker syndrome, mental retardation with total self-care deficit, hypertension, seizures, and bradycardia. Patient seen ambulating in psychiatry hallway, examined in his room. Asked how he is doing and patient states "ok". Denies any chest pain, SOB, N/V/D, no headaches. No complaints, nurse reports that he showered today. Objective Vitals Vital Signs Date Time Temp Pulse Resp B/P (MAP) Pulse Ox O2 Delivery O2 Flow Rate FiO2 04/09/17 06:21 98.3 85 16 127/75 (92) 98 04/08/17 17:30 98.6 74 18 120/57 (78) 97 Result Diagram: 04/05/17 1339 04/07/17 0810 Objective Remarks GENERAL: This is a well-nourished, pleasant patient, in no apparent distress. Child like demeanor. SKIN: No rashes, ecchymoses or lesions. Cool and dry. HEAD: Atraumatic. Normocephalic. EYES: Pupils equal round and reactive. No injection or drainage. ENT: Airway patent. NECK: Trachea midline. CARDIOVASCULAR: Regular rate and rhythm without murmurs, gallops, or rubs. RESPIRATORY: Clear to auscultation. Breath sounds equal bilaterally. No wheezes , rales, or rhonchi. GASTROINTESTINAL: Abdomen soft, non-tender, nondistended. No guarding. MUSCULOSKELETAL: Extremities without clubbing, cyanosis, or edema. NEUROLOGICAL: Awake and alert. Moves all extremities spontaneously, ambulating without difficulties. Motor and sensory grossly within normal limits. Normal speech. 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 He presents to ED due to her recent history of disrobing and walking in the middle of the road. Patient has had episodes of aggression towards the the staff and other patients. He has been admitted to inpatient psych and medical team consulted for medical management. Intermittent explosive disorder - Treatment per psych Dandy-Walker syndrome Mental retardation - Chronic issue, awaiting court for guardian -Case management assisting for possible placement Seizure,controlled - Dilantin level this AM 8.1--->18.3 now - Continue Dilantin to 150mg every 8hrs. - Monitor of seizure activity HTN, BP elevated - Chronic issue patient on Lisinopril 20mg and Norvasc, BP stable Vitamin D Deficiency - Replacement with Cholecalciferol 1,000units PO daily. VTE: ambulating Will sign off, please reconsult if needed, thank you. Problem Qualifiers (1) HTN (hypertension): Qualified Codes: I10 - Essential (primary) hypertension Radha Schultz Apr 09, 2017 13:11
--- NOTE | 2017-04-09 14:24 | HHI.PYPN ---
Subjective Remarks Patient was seen and case discussed with nursing. Patient is bright and pleasant during the interview. Nursing believes he may be responding to internal stimuli given he is hiding under his bed. However, patient refuses any paranoia or hallucinations. He hudson a nice chrysalis guards for the nurse. Remains without psychotropic pending guardian advocate's Mental Status Examination Appearance: Disheveled Consciousness: Alert Orientation: Person, Place Motor Activity: Normal gait Speech: Hesitant Language: Other Fund of Knowledge: Inadequate Attention and Concentration: Inadequate Memory: Impaired Mood: Anxious Affect: Anxious Thought Process & Associations: Other Thought Content: Bizarre thinking Hallucination Type: None Delusion Type: None Suicidal Ideation: No Suicidal Plan: No Suicidal Intention: No Homicidal Ideation: No Homicidal Plan: No Homicidal Intention: No Insight: Fair Judgment: Impulsive Results Labs Test 04/09/17 06:20 Phenytoin (Dilantin) Level 18.3 MCG/ML Vitals/IOs Vital Signs Date Time Temp Pulse Resp B/P (MAP) Pulse Ox O2 Delivery O2 Flow Rate FiO2 04/09/17 06:21 98.3 85 16 127/75 (92) 98 Assessment & Plan Problem List: (1) Intermittent explosive disorder ICD Codes: F63.81 - Intermittent explosive disorder Assessment & Plan Continue current treatment plan Justification for Cont. Inpt. Patient would decompensate in a less restrictive setting Chapo Woodward DO Apr 09, 2017 14:24
[2017-04-09 17:43] VITALS: BP 125/82; PULSE 90; RESP 16; TEMP 98.7; O2SAT 97
[2017-04-10] MEDS: PHENYTOIN SUSP 100 MG/4 ML CUP PO SCH ×3 (05:25→21:45)
[2017-04-10 05:45] VITALS: BP 116/74; PULSE 78; RESP 15; TEMP 97.4; O2SAT 100
[2017-04-10] MEDS: amLODIPine BESYLATE 5 MG TAB PO SCH (08:42)
[2017-04-10] MEDS: CHOLECALCIFEROL (VIT D3) 1000 UNIT TAB PO SCH (08:42)
[2017-04-10] MEDS: LISINOPRIL 20 MG TAB PO SCH (09:00)
--- NOTE | 2017-04-10 12:36 | HHI.PYPN ---
Subjective Remarks Patient was seen and case discussed with nursing. Patient is shy and hesitant during the interview. Does remain pleasant and cooperative. Largely seclusive to room. Remains without psychotropic medications pending guardian advocate . Eating and sleeping well. No behavioral outbursts Mental Status Examination Appearance: Disheveled Consciousness: Alert Orientation: Person, Place Motor Activity: Normal gait Speech: Hesitant Language: Other Fund of Knowledge: Inadequate Attention and Concentration: Inadequate Memory: Impaired Mood: Anxious Affect: Anxious Thought Process & Associations: Other Thought Content: Bizarre thinking Hallucination Type: None Delusion Type: None Suicidal Ideation: No Suicidal Plan: No Suicidal Intention: No Homicidal Ideation: No Homicidal Plan: No Homicidal Intention: No Insight: Fair Judgment: Impulsive Results Vitals/IOs Vital Signs Date Time Temp Pulse Resp B/P (MAP) Pulse Ox O2 Delivery O2 Flow Rate FiO2 04/10/17 05:45 97.4 78 15 116/74 (88) 100 Assessment & Plan Problem List: (1) Intermittent explosive disorder ICD Codes: F63.81 - Intermittent explosive disorder Assessment & Plan Continue current treatment plan Justification for Cont. Inpt. Patient would decompensate in a less restrictive setting Chapo Woodward DO Apr 10, 2017 12:36
[2017-04-10 18:00] VITALS: BP 130/67; PULSE 91; RESP 15; TEMP 97.9; O2SAT 100
[2017-04-11 05:47] VITALS: BP 131/60; PULSE 84; RESP 16; TEMP 98; O2SAT 97
[2017-04-11] MEDS: PHENYTOIN SUSP 100 MG/4 ML CUP PO SCH ×4 (06:16→22:00)
[2017-04-11] MEDS: amLODIPine BESYLATE 5 MG TAB PO SCH (09:04)
[2017-04-11] MEDS: LISINOPRIL 20 MG TAB PO SCH (09:04)
[2017-04-11] MEDS: CHOLECALCIFEROL (VIT D3) 1000 UNIT TAB PO SCH (09:05)
--- NOTE | 2017-04-11 09:15 | HHI.PYPN ---
Subjective Remarks Patient seen and examined with nurse in coverage for Dr. Avila. Chart reviewed. Psychotropics on hold. Case discussed with nursing staff who reports that the patient has been no real behavioral problems overnight. On my examination today, the patient is laying in his room with his head under the covers. He is initially mute although does with some prompting give yes/no answers. No side effects from medications that he is receiving. No physical complaints. Review of Systems ROS Limitations: Poor Historian Except as stated in HPI: all other systems reviewed are Neg Mental Status Examination Appearance: Disheveled Consciousness: Alert Orientation: Person Motor Activity: Other (no motor abnormalities noted) Speech: Hesitant, Slow Language: Other (yes/no answers) Fund of Knowledge: Inadequate Attention and Concentration: Inadequate Memory: Impaired Mood: Other (calm) Affect: Blunt Thought Process & Associations: Other (paucity of thought) Thought Content: Bizarre thinking Hallucination Type: None Delusion Type: None Suicidal Ideation: No Suicidal Plan: No Suicidal Intention: No Homicidal Ideation: No Homicidal Plan: No Homicidal Intention: No Insight: Fair Judgment: Impulsive Results Labs Labs reviewed. Vitals/IOs Vital Signs Date Time Temp Pulse Resp B/P (MAP) Pulse Ox O2 Delivery O2 Flow Rate FiO2 04/11/17 05:47 98.0 84 16 131/60 (83) 97 Assessment & Plan Problem List: (1) Intermittent explosive disorder ICD Codes: F63.81 - Intermittent explosive disorder Assessment & Plan Continue to monitor on the inpatient unit. Continue medications and care as ordered. Justification for Cont. Inpt. High risk for decompensation in less restrictive environment. Discharge Planning Per Manjit Francisco MD Apr 11, 2017 09:15
[2017-04-11 18:10] VITALS: BP 138/76; PULSE 93; RESP 16; TEMP 98; O2SAT 100
[2017-04-12 06:15] VITALS: BP 143/99; PULSE 85; RESP 18; TEMP 97.3; O2SAT 98
[2017-04-12] MEDS: PHENYTOIN SUSP 100 MG/4 ML CUP PO SCH ×3 (06:31→21:06)
[2017-04-12] MEDS: LISINOPRIL 20 MG TAB PO SCH (09:14)
[2017-04-12] MEDS: CHOLECALCIFEROL (VIT D3) 1000 UNIT TAB PO SCH (09:14)
[2017-04-12] MEDS: amLODIPine BESYLATE 5 MG TAB PO SCH (09:14)
--- NOTE | 2017-04-12 16:19 | HHI.PYPN ---
Subjective Remarks Patient calm and cooperative. Verbally appropriate with this physician. Continues to have no place to go. Mental Status Examination Appearance: Disheveled Consciousness: Alert Orientation: Person Motor Activity: Other (no motor abnormalities noted) Speech: Hesitant, Slow Language: Other (yes/no answers) Fund of Knowledge: Inadequate Attention and Concentration: Inadequate Memory: Impaired Mood: Other (calm) Affect: Blunt Thought Process & Associations: Other (paucity of thought) Thought Content: Bizarre thinking Hallucination Type: None Delusion Type: None Suicidal Ideation: No Suicidal Plan: No Suicidal Intention: No Homicidal Ideation: No Homicidal Plan: No Homicidal Intention: No Insight: Fair Judgment: Impulsive Results Vitals/IOs Vital Signs Date Time Temp Pulse Resp B/P (MAP) Pulse Ox O2 Delivery O2 Flow Rate FiO2 04/12/17 06:15 97.3 85 18 143/99 (114) 98 Assessment & Plan Problem List: (1) Intermittent explosive disorder ICD Codes: F63.81 - Intermittent explosive disorder Assessment & Plan Estimated LOS: days. Continue to monitor for appropriate behavior and need for medication changes. Civil commitment court tomorrow. Justification for Cont. Inpt. Unable to care for self. Andi Avila MD Apr 12, 2017 16:19
[2017-04-13 05:49] VITALS: BP 117/56; PULSE 81; RESP 18; TEMP 97.9; O2SAT 98
[2017-04-13] MEDS: PHENYTOIN SUSP 100 MG/4 ML CUP PO SCH ×3 (06:00→21:05)
[2017-04-13] MEDS: amLODIPine BESYLATE 5 MG TAB PO SCH (08:41)
[2017-04-13] MEDS: LISINOPRIL 20 MG TAB PO SCH (08:41)
[2017-04-13] MEDS: CHOLECALCIFEROL (VIT D3) 1000 UNIT TAB PO SCH (08:41)
--- NOTE | 2017-04-13 10:22 | HHI.PYPN ---
Subjective Remarks Patient became upset with physical and emotional outbursts when nurses took away his "paperwork". Met with patient individually and presented case to the asphalt tamper and civil commitment hearing. Reviewed patient's laboratories results and nursing notes on his behavior. Patient remains unable to care for himself and requires a guardian advocate. Refueling Rampman agrees with civil commitment and appointed [place]. Review of Systems Psychiatric: COMPLAINS OF: Anxiety Except as stated in HPI: all other systems reviewed are Neg Mental Status Examination Appearance: Disheveled Consciousness: Alert Orientation: Person Motor Activity: Other (no motor abnormalities noted) Speech: Hesitant, Slow Language: Other (yes/no answers) Fund of Knowledge: Inadequate Attention and Concentration: Inadequate Memory: Impaired Mood: Other (calm) Affect: Blunt Thought Process & Associations: Other (paucity of thought) Thought Content: Bizarre thinking Hallucination Type: None Delusion Type: None Suicidal Ideation: No Suicidal Plan: No Suicidal Intention: No Homicidal Ideation: No Homicidal Plan: No Homicidal Intention: No Insight: Fair Judgment: Impulsive Results Vitals/IOs Vital Signs Date Time Temp Pulse Resp B/P (MAP) Pulse Ox O2 Delivery O2 Flow Rate FiO2 04/13/17 05:49 97.9 81 18 117/56 (76) 98 Assessment & Plan Problem List: (1) Intermittent explosive disorder ICD Codes: F63.81 - Intermittent explosive disorder Assessment & Plan Estimated LOS: days. As guardian advocate has been appointed, we will attempt to get authorization to increased dose of Seroquel for mood stability. This order has been written and nurse is being requested to obtain informed consent from guardian advocate. Justification for Cont. Inpt. Patient unable to care for self and requires medication adjustment for mood stability so he can be assisted by others. Andi Avila MD Apr 13, 2017 10:22
[2017-04-13 16:40] VITALS: BP 122/66; PULSE 72; RESP 18; TEMP 97.8; O2SAT 99
[2017-04-14] MEDS: PHENYTOIN SUSP 100 MG/4 ML CUP PO SCH ×3 (06:00→21:18)
[2017-04-14 06:08] VITALS: BP 143/94; PULSE 73; RESP 18; TEMP 97.2; O2SAT 97
[2017-04-14] MEDS: amLODIPine BESYLATE 5 MG TAB PO SCH (09:03)
[2017-04-14] MEDS: LISINOPRIL 20 MG TAB PO SCH (09:04)
[2017-04-14] MEDS: CHOLECALCIFEROL (VIT D3) 1000 UNIT TAB PO SCH (09:05)
[2017-04-14 17:24] VITALS: BP 111/55; PULSE 125; RESP 18; TEMP 97.9; O2SAT 97
[2017-04-14] MEDS: QUEtiapine FUMARATE 100 MG TAB PO SCH ×2 (21:00)
[2017-04-15] MEDS: PHENYTOIN SUSP 100 MG/4 ML CUP PO SCH ×3 (06:00→20:14)
[2017-04-15 06:29] VITALS: BP 102/55; PULSE 88; RESP 16; TEMP 98.5; O2SAT 98
[2017-04-15] MEDS: LISINOPRIL 20 MG TAB PO SCH (09:22)
[2017-04-15] MEDS: CHOLECALCIFEROL (VIT D3) 1000 UNIT TAB PO SCH (09:22)
[2017-04-15] MEDS: amLODIPine BESYLATE 5 MG TAB PO SCH (09:22)
[2017-04-15] MEDS: QUEtiapine FUMARATE 100 MG TAB PO SCH ×3 (09:22→20:16)
--- NOTE | 2017-04-15 14:03 | HHI.PYPN ---
Subjective Remarks Patient seen and examined with nurse in coverage for Dr. Avila. Chart reviewed. Case discussed in treatment team with counselor and occupational therapist. Case discussed with nursing staff. On my examination today, the patient presents as calm, childlike. He is coloring a picture. He denies any SI or HI. Denies any side effects from medications. Denies any complaints of pain. Review of Systems ROS Limitations: Poor Historian Except as stated in HPI: all other systems reviewed are Neg Mental Status Examination Appearance: Disheveled Consciousness: Alert Orientation: Person (at least) Motor Activity: Other (no abnormal motor movements noted) Speech: Unremarkable Language: Other (yes/no answers) Fund of Knowledge: Inadequate Attention and Concentration: Inadequate Memory: Impaired Mood: Other (calm) Affect: Euthymic (childlike) Thought Process & Associations: Other (paucity of thought) Thought Content: Other (limited sample) Hallucination Type: None Delusion Type: None Suicidal Ideation: No Suicidal Plan: No Suicidal Intention: No Homicidal Ideation: No Homicidal Plan: No Homicidal Intention: No Insight: Poor Judgment: Poor Results Labs Labs reviewed. No recent labs. Vitals/IOs Vital Signs Date Time Temp Pulse Resp B/P (MAP) Pulse Ox O2 Delivery O2 Flow Rate FiO2 04/15/17 06:29 98.5 88 16 102/55 (71) 98 Intake and Output 04/15/17 04/15/17 04/16/17 08:00 16:00 00:00 Intake Total 600 ml Balance 600 ml Assessment & Plan Problem List: (1) Intermittent explosive disorder ICD Codes: F63.81 - Intermittent explosive disorder Assessment & Plan Continue current psychotropics as ordered. Continue to monitor on the inpatient unit. Continue other medications and care as ordered. Justification for Cont. Inpt. Risk for decompensation in less restrictive environment Discharge Planning Per Dr. Avila. Manjit Babin MD Apr 15, 2017 14:03
--- NOTE | 2017-04-15 15:25 | PD.TTN ---
Patient Problems 1. Discharge planning 2. Medication compliance 3. Knowledge deficit 4. Lack of coping skills Progress Toward Goals Provider Present: Dr. Melina Babin Provider Input: Pt medication regiment is being evaluated and he will be placed at a new facility with assistance of [employer]. Nurse(s) Present: Avis Bear RN Nurse(s) Input: Pt is cooperative, sweet and is more outgoing on the unit. Psychiatric Counselors Present: VITA Lane Psych Therapist Input: Pt appears calm, cooperative, appropriate, organized and oriented. He appears to be internally stimulate at times. No noted agitation or aggression. He is compliant with medication regiment. Pt appears to utilize some level of coping and emotional regulation skills as he has been calm on unit. Insight and judgment remains poor into condition and need for care. 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 Group Spec/RT/OT/EVANS Present: NATHAN Wang Group Spec/RT/OT/EVANS Input: Pt requires encouragement to attend and attends mainly food groups with low tolerance. Discharge Plan Pt will be placed in a new snf through [employer] and will follow up with facility providers. Documentation Scribe: VITA Lane Jonathan LMHC Apr 15, 2017 15:25
[2017-04-15 18:04] VITALS: BP 120/61; PULSE 96; RESP 17; TEMP 97.7; O2SAT 97
[2017-04-16 05:43] VITALS: BP 129/70; PULSE 99; RESP 18; TEMP 97.6; O2SAT 99
[2017-04-16] MEDS: PHENYTOIN SUSP 100 MG/4 ML CUP PO SCH ×2 (06:02→15:11)
[2017-04-16] MEDS: QUEtiapine FUMARATE 100 MG TAB PO SCH ×3 (08:21→20:46)
[2017-04-16] MEDS: amLODIPine BESYLATE 5 MG TAB PO SCH (08:21)
[2017-04-16] MEDS: LISINOPRIL 20 MG TAB PO SCH (08:21)
[2017-04-16] MEDS: CHOLECALCIFEROL (VIT D3) 1000 UNIT TAB PO SCH (08:21)
--- NOTE | 2017-04-16 14:08 | HHI.PYPN ---
Subjective Remarks Pt seen and discussed with staff. He has been compliant with medications. He stays secluded in his room, lying in bed with covers over his head. Limited interaction and appears to be responding to internal stimuli. Poor ADLS. Mental Status Examination Appearance: Disheveled Consciousness: Alert Orientation: Person (at least) Motor Activity: Other (no abnormal motor movements noted) Speech: Unremarkable Language: Other (yes/no answers) Fund of Knowledge: Inadequate Attention and Concentration: Inadequate Memory: Impaired Mood: Irritable Affect: Irritable Thought Process & Associations: Other (paucity of thought) Thought Content: Other (limited sample) Hallucination Type: None Delusion Type: None Suicidal Ideation: No Suicidal Plan: No Suicidal Intention: No Homicidal Ideation: No Homicidal Plan: No Homicidal Intention: No Insight: Poor Judgment: Poor Results Vitals/IOs Vital Signs Date Time Temp Pulse Resp B/P (MAP) Pulse Ox O2 Delivery O2 Flow Rate FiO2 04/16/17 05:43 97.6 99 18 129/70 (89) 99 Intake and Output 04/16/17 04/16/17 04/17/17 08:00 16:00 00:00 Intake Total 0 ml Balance 0 ml Assessment & Plan Problem List: (1) Intermittent explosive disorder ICD Codes: F63.81 - Intermittent explosive disorder Assessment & Plan Continue current tx plan. Estimated LOS: days Justification for Cont. Inpt. risk of decompensation Samantha Gaston MD Apr 16, 2017 14:08
[2017-04-16 18:28] VITALS: BP 133/62; PULSE 89; RESP 18; TEMP 98.5; O2SAT 96
[2017-04-17] MEDS: PHENYTOIN SUSP 100 MG/4 ML CUP PO SCH ×4 (00:16→21:27)
[2017-04-17 06:11] VITALS: BP 122/72; PULSE 98; RESP 17; TEMP 97.8; O2SAT 95
[2017-04-17] MEDS: QUEtiapine FUMARATE 100 MG TAB PO SCH ×3 (09:10→21:28)
[2017-04-17] MEDS: LISINOPRIL 20 MG TAB PO SCH (09:10)
[2017-04-17] MEDS: CHOLECALCIFEROL (VIT D3) 1000 UNIT TAB PO SCH (09:10)
[2017-04-17] MEDS: amLODIPine BESYLATE 5 MG TAB PO SCH (09:10)
--- NOTE | 2017-04-17 15:44 | HHI.PYPN ---
Subjective Remarks Pt seen and discussed with staff. He has been compliant with medications and denies side effects. No outbursts or agitation. No SI/HI. Mental Status Examination Appearance: Disheveled Consciousness: Alert Orientation: Person (at least) Motor Activity: Other (no abnormal motor movements noted) Speech: Unremarkable Language: Other (yes/no answers) Fund of Knowledge: Inadequate Attention and Concentration: Inadequate Memory: Impaired Mood: Irritable Affect: Irritable Thought Process & Associations: Other (paucity of thought) Thought Content: Other (limited sample) Hallucination Type: None Delusion Type: None Suicidal Ideation: No Suicidal Plan: No Suicidal Intention: No Homicidal Ideation: No Homicidal Plan: No Homicidal Intention: No Insight: Poor Judgment: Poor Results Vitals/IOs Vital Signs Date Time Temp Pulse Resp B/P (MAP) Pulse Ox O2 Delivery O2 Flow Rate FiO2 04/17/17 06:11 97.8 98 17 122/72 (89) 95 Assessment & Plan Problem List: (1) Intermittent explosive disorder ICD Codes: F63.81 - Intermittent explosive disorder Assessment & Plan Continue current tx plan. Estimated LOS: days Justification for Cont. Inpt. risk of decompensation Samantha Gaston MD Apr 17, 2017 15:44
[2017-04-17 17:21] VITALS: BP 121/59; PULSE 96; RESP 18; TEMP 98.7; O2SAT 100
[2017-04-18 06:00] VITALS: BP 135/72; PULSE 91; RESP 18; TEMP 97.5; O2SAT 97
[2017-04-18] MEDS: PHENYTOIN SUSP 100 MG/4 ML CUP PO SCH ×3 (06:33→21:50)
[2017-04-18] MEDS: amLODIPine BESYLATE 5 MG TAB PO SCH (09:13)
[2017-04-18] MEDS: QUEtiapine FUMARATE 100 MG TAB PO SCH ×2 (09:13→21:50)
[2017-04-18] MEDS: LISINOPRIL 20 MG TAB PO SCH (09:13)
[2017-04-18] MEDS: CHOLECALCIFEROL (VIT D3) 1000 UNIT TAB PO SCH (09:13)
[2017-04-18] MEDS: hydrOXYzine HCL 50 MG TAB PO PRN (13:00)
--- NOTE | 2017-04-18 14:59 | HHI.PYPN ---
Subjective Remarks Patient was seen today for psychiatric reevaluation. Case was discussed with nurse in charge. Chart was reviewed including notes from weekend psychiatrist. On psychiatric evaluation today patient seems to be disturbed, irritable, stating that a camera in the microphone has been inserted inside his head by "those people". When I asked him who does people are, he told me "is Renan". He also reports hearing voices, but he cannot elaborate about the content of these voices. Per nursing charge the patient has been complaining about this delusion the holiday. He has been Irritable, demanding, but not agitated or aggressive. Patient has been compliant with his medications, no significant side effects. Review of Systems Except as stated in HPI: all other systems reviewed are Neg Mental Status Examination Appearance: Disheveled Consciousness: Alert Orientation: Person (at least) Motor Activity: Other (no abnormal motor movements noted) Speech: Unremarkable Language: Other (yes/no answers) Fund of Knowledge: Inadequate Attention and Concentration: Inadequate Memory: Impaired Mood: Irritable Affect: Irritable Thought Process & Associations: Other (thought control) Thought Content: Other (limited sample) Hallucination Type: Auditory Delusion Type: Paranoid Suicidal Ideation: No Suicidal Plan: No Suicidal Intention: No Homicidal Ideation: No Homicidal Plan: No Homicidal Intention: No Insight: Poor Judgment: Poor Results Vitals/IOs Vital Signs Date Time Temp Pulse Resp B/P (MAP) Pulse Ox O2 Delivery O2 Flow Rate FiO2 04/18/17 06:00 97.5 91 18 135/72 (93) 97 Assessment & Plan Problem List: (1) Intermittent explosive disorder ICD Codes: F63.81 - Intermittent explosive disorder (2) Unspecified psychosis ICD Codes: F29 - Unspecified psychosis not due to a substance or known physiological condition Assessment & Plan: Today patient reports hearing voices that he cannot define, he also reported that he feels the cameras and microphones has been stick inside his head and his thought has been recorded. Patient has been complaining about this delusion the whole day. I will increase his Seroquel to 100 mg in the morning and 300 mg at bedtime for psychosis. Assessment & Plan Estimated LOS: days Justification for Cont. Inpt. Patient is acutely psychotic, he needs to continue psychiatric hospitalization for stabilization Ryan Schmitt MD Apr 18, 2017 14:59
[2017-04-18] MEDS: LORazepam 1 MG TAB PO PRN (15:39)
[2017-04-18 17:00] VITALS: BP 156/80; PULSE 103; RESP 18; TEMP 97.9; O2SAT 98
[2017-04-18] MEDS ORDERED: QUEtiapine FUMARATE 100 MG TAB PO ONE (17:30)
[2017-04-18] MEDS: QUEtiapine FUMARATE 300 MG TAB PO SCH (21:50)
[2017-04-19] MEDS: PHENYTOIN SUSP 100 MG/4 ML CUP PO SCH ×3 (06:49→22:31)
[2017-04-19] MEDS: hydrOXYzine HCL 50 MG TAB PO PRN (06:51)
[2017-04-19 07:02] VITALS: BP 114/57; PULSE 75; RESP 18; TEMP 98.6; O2SAT 97
[2017-04-19] MEDS: LORazepam 2 MG/ML VIAL IM PRN ×2 (08:08→16:01)
[2017-04-19] MEDS: CHOLECALCIFEROL (VIT D3) 1000 UNIT TAB PO SCH (09:07)
[2017-04-19] MEDS: QUEtiapine FUMARATE 100 MG TAB PO SCH ×2 (09:07→22:30)
[2017-04-19] MEDS: LISINOPRIL 20 MG TAB PO SCH (09:07)
[2017-04-19] MEDS: amLODIPine BESYLATE 5 MG TAB PO SCH (09:08)
--- NOTE | 2017-04-19 12:48 | HHI.PYPN ---
Subjective Remarks This is the progress note for April 14, 2017. Patient was calm and pleasant on this day. Cooperative and no behavioral disturbance. Review of Systems Except as stated in HPI: all other systems reviewed are Neg Mental Status Examination Appearance: Disheveled Consciousness: Alert Orientation: Person (at least) Motor Activity: Other (no abnormal motor movements noted) Speech: Unremarkable Language: Other (yes/no answers) Fund of Knowledge: Inadequate Attention and Concentration: Inadequate Memory: Impaired Mood: Irritable Affect: Irritable Thought Process & Associations: Other (thought control) Thought Content: Other (limited sample) Hallucination Type: Auditory Delusion Type: Paranoid Suicidal Ideation: No Suicidal Plan: No Suicidal Intention: No Homicidal Ideation: No Homicidal Plan: No Homicidal Intention: No Insight: Poor Judgment: Poor Results Vitals/IOs Vital Signs Date Time Temp Pulse Resp B/P (MAP) Pulse Ox O2 Delivery O2 Flow Rate FiO2 04/19/17 07:02 98.6 75 18 114/57 (76) 97 Intake and Output 04/19/17 04/19/17 04/19/17 07:59 15:59 23:59 Intake Total 240 ml Balance 240 ml Assessment & Plan Problem List: (1) Intermittent explosive disorder ICD Codes: F63.81 - Intermittent explosive disorder (2) Unspecified psychosis ICD Codes: F29 - Unspecified psychosis not due to a substance or known physiological condition Assessment & Plan Estimated LOS: days. No changes in medicines or treatment plan. Justification for Cont. Inpt. Unable to care for self. Andi Avila MD Apr 19, 2017 12:48
--- NOTE | 2017-04-19 12:51 | HHI.PYPN ---
Subjective Remarks Patient having trouble with insomnia. Seroquel dose increased last night. Patient more somnolent today. Apparently had small argument with staff. Complains of auditory hallucinations telling him to harm himself. Placed on 2700 for closer observation. Review of Systems Except as stated in HPI: all other systems reviewed are Neg Mental Status Examination Appearance: Disheveled Consciousness: Alert Orientation: Person (at least) Motor Activity: Other (no abnormal motor movements noted) Speech: Unremarkable Language: Other (yes/no answers) Fund of Knowledge: Inadequate Attention and Concentration: Inadequate Memory: Impaired Mood: Irritable Affect: Irritable Thought Process & Associations: Other (thought control) Thought Content: Other (limited sample) Hallucination Type: Auditory Delusion Type: Paranoid Suicidal Ideation: No Suicidal Plan: No Suicidal Intention: No Homicidal Ideation: No Homicidal Plan: No Homicidal Intention: No Insight: Poor Judgment: Poor Results Vitals/IOs Vital Signs Date Time Temp Pulse Resp B/P (MAP) Pulse Ox O2 Delivery O2 Flow Rate FiO2 04/19/17 07:02 98.6 75 18 114/57 (76) 97 Intake and Output 04/19/17 04/19/17 04/19/17 07:59 15:59 23:59 Intake Total 240 ml Balance 240 ml Assessment & Plan Problem List: (1) Intermittent explosive disorder ICD Codes: F63.81 - Intermittent explosive disorder (2) Unspecified psychosis ICD Codes: F29 - Unspecified psychosis not due to a substance or known physiological condition Assessment & Plan Estimated LOS: days. Titrated up dose of Seroquel and monitor for both effectiveness and adverse reactions. Justification for Cont. Inpt. Ongoing intermittent command auditory hallucinations telling him to harm himself. Andi Avila MD Apr 19, 2017 12:51
[2017-04-19 18:49] VITALS: BP 131/78; PULSE 109; RESP 16; TEMP 97.2; O2SAT 100
[2017-04-19] MEDS: QUEtiapine FUMARATE 300 MG TAB PO SCH (22:30)
[2017-04-20] MEDS: LORazepam 1 MG TAB PO PRN ×2 (00:51→09:30)
[2017-04-20] MEDS ORDERED: PHENYTOIN SUSP 100 MG/4 ML CUP PO SCH ×2 (06:00→21:00)
[2017-04-20 06:19] VITALS: BP 130/61; PULSE 98; RESP 18; TEMP 98.6; O2SAT 96
[2017-04-20] MEDS: PHENYTOIN SUSP 100 MG/4 ML CUP PO SCH (06:44)
[2017-04-20] MEDS: CHOLECALCIFEROL (VIT D3) 1000 UNIT TAB PO SCH (09:08)
[2017-04-20] MEDS: amLODIPine BESYLATE 5 MG TAB PO SCH (09:09)
[2017-04-20] MEDS: LISINOPRIL 20 MG TAB PO SCH (09:09)
[2017-04-20] MEDS: QUEtiapine FUMARATE 100 MG TAB PO SCH ×2 (09:09→21:40)
--- NOTE | 2017-04-20 10:12 | HHI.PYPN ---
Subjective Remarks Patient continues to complain of auditory hallucinations. He is requiring significant redirection as he is intrusive, impulsive and oppositional. This physician increased his dose of Seroquel once again. A Dilantin order was also given to obtain his Dilantin blood level. Review of Systems ROS Limitations: Clinical Condition Except as stated in HPI: all other systems reviewed are Neg Mental Status Examination Appearance: Disheveled Consciousness: Alert Orientation: Person (at least) Motor Activity: Other (no abnormal motor movements noted) Speech: Unremarkable Language: Other (yes/no answers) Fund of Knowledge: Inadequate Attention and Concentration: Inadequate Memory: Impaired Mood: Irritable Affect: Irritable Thought Process & Associations: Other (thought control) Thought Content: Hallucinations, Other (limited sample) Hallucination Type: Auditory Delusion Type: Paranoid Suicidal Ideation: No Suicidal Plan: No Suicidal Intention: No Homicidal Ideation: No Homicidal Plan: No Homicidal Intention: No Insight: Poor Judgment: Poor Results Vitals/IOs Vital Signs Date Time Temp Pulse Resp B/P (MAP) Pulse Ox O2 Delivery O2 Flow Rate FiO2 04/20/17 06:19 98.6 98 18 130/61 (84) 96 Assessment & Plan Problem List: (1) Intermittent explosive disorder ICD Codes: F63.81 - Intermittent explosive disorder (2) Unspecified psychosis ICD Codes: F29 - Unspecified psychosis not due to a substance or known physiological condition Assessment & Plan Estimated LOS: days this physician is continuing to titrate the patient's Seroquel in hopes of diminishing his hallucinations and stabilizing his mood. Dilantin level obtained 2 assist with history of seizure management. Justification for Cont. Inpt. Remains psychotic, impulsive and unable to care for self. Andi Avila MD Apr 20, 2017 10:12
--- NOTE | 2017-04-20 14:03 | HHI.PR ---
Subjective Remarks f/u; dilantin toxicity in no acute distress. slightly lethargic. oriented to person and place but not to time. dilantin level trend noted. Objective Vitals Vital Signs Date Time Temp Pulse Resp B/P (MAP) Pulse Ox O2 Delivery O2 Flow Rate FiO2 04/20/17 06:19 98.6 98 18 130/61 (84) 96 04/19/17 18:49 97.2 109 16 131/78 (95) 100 I/O 04/19/17 04/19/17 04/19/17 04/20/17 04/20/17 04/20/17 07:00 15:00 23:00 07:00 15:00 23:00 Intake Total 240 ml Balance 240 ml Intake Oral 240 ml Objective Remarks GENERAL: This is a well-nourished, well-developed patient, in no apparent distress. CARDIOVASCULAR: Regular rate and regular rhythm without murmurs, gallops, or rubs. RESPIRATORY: Clear to auscultation. Breath sounds equal bilaterally. No wheezes , rales, or rhonchi. GASTROINTESTINAL: Abdomen soft, non-tender, nondistended. Normal, active bowel sounds MUSCULOSKELETAL: Extremities without clubbing, cyanosis, or edema. NEURO: awake and alert; oriented to person and place but not to time. Medications and IVs Inpatient Medications Acetaminophen (Tylenol) 650 mg Q4H PRN PO Pain 1-5 or Temp >101F; Start at 17:30 Al Hydrox/Mg Hydrox/Simethicone (Mag-Al Plus Susp Liq) 30 ml Q6H PRN PO DYSPEPSIA; Start 04/04/17 at 17:30 Amlodipine Besylate (Norvasc) 5 mg DAILY PO Last administered on 04/20/17 09:09 ; Start 04/07/17 at 09:00 Cholecalciferol (Vitamin D3) 1,000 units DAILY PO Last administered on 09:08; Start 04/06/17 at 09:00 Diphenhydramine HCl (Benadryl Inj) 50 mg NOW ONCE IM ; Start 04/06/17 at 20:34 ; Stop 04/06/17 at 20:49; Status DC Hydroxyzine HCl (Atarax) 50 mg Q6H PRN PO ANXIETY Last administered on 1/2/ 18at 06:51; Start 04/04/17 at 17:30; Status Future hold Lisinopril (Prinivil) 20 mg DAILY PO Last administered on 04/20/17 09:09; Start 04/02/17 at 13:45 Lorazepam (Ativan Inj) 2 mg NOW ONCE IM ; Start 04/06/17 at 20:34; Stop 04/06 at 20:49; Status DC Lorazepam (Ativan) 1 mg Q6H PRN PO MODERATE TO SEVERE ANXIETY Last administered on 04/20/17 09:30; Start 04/04/17 at 17:30; Status Future hold Magnesium Hydroxide (Milk Of Magnesia Liq) 30 ml DAILY PRN PO CONSTIPATION; Start 04/04/17 at 17:30 Midazolam HCl (Versed Inj) 1 mg ONCE ONCE IM Last administered on 04/02/17t 11:04; Start 04/02/17 at 10:45; Stop 04/02/17 at 10:47; Status DC Phenytoin (Dilantin Liq) 150 mg Q12HR PO ; Start 04/20/17 at 21:00 Phenytoin (Dilantin) 100 mg ONCE ONCE PO Last administered on 04/06/17t 16:37 ; Start 04/06/17 at 15:15; Stop 04/06/17 at 16:11; Status DC Quetiapine Fumarate (SEROquel) 200 mg BID PO ; Start 04/20/17 at 21:00 Ziprasidone (Geodon Inj) 20 mg NOW ONCE IM ; Start 04/06/17 at 20:34; Stop at 20:49; Status DC A/P Problem List: (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 HTN - Chronic issue patient on Lisinopril and Norvasc, BP stable Vitamin D Deficiency - Replacement with Cholecalciferol 1,000units PO daily. VTE: ambulating case was d/w the poison control and RN. Problem Qualifiers (1) HTN (hypertension): Qualified Codes: I10 - Essential (primary) hypertension Aleja Harrison MD Apr 20, 2017 14:03
[2017-04-20 19:07] VITALS: BP 155/63; PULSE 113; RESP 18; TEMP 97.5
[2017-04-20] MEDS: QUEtiapine FUMARATE 300 MG TAB PO SCH (21:40)
[2017-04-20] MEDS: hydrOXYzine HCL 50 MG TAB PO PRN (21:40)
[2017-04-21 06:47] VITALS: BP 113/66; PULSE 93; RESP 16; TEMP 97.9; O2SAT 100
[2017-04-21] MEDS: QUEtiapine FUMARATE 100 MG TAB PO SCH ×2 (08:34→21:32)
[2017-04-21] MEDS: CHOLECALCIFEROL (VIT D3) 1000 UNIT TAB PO SCH (08:34)
[2017-04-21] MEDS: amLODIPine BESYLATE 5 MG TAB PO SCH (08:34)
[2017-04-21] MEDS: LISINOPRIL 20 MG TAB PO SCH (08:34)
[2017-04-21 10:37] LABS: ALBUMIN 3.8 GM/DL (3.4-5.0); AST (GOT) 31 U/L (15-37); BICARBONATE 31.6 MEQ/L (21.0-32.0); BLOOD UREA NITROGEN 20 MG/DL (7-18); CHLORIDE 101 MEQ/L (98-107); CREATININE 1.07 MG/DL (0.60-1.30); GLOMERULAR FILTRATION RATE 104 ML/MIN (>89); GLUCOSE,RANDOM 116 MG/DL (74-106); SODIUM (NA) 140 MEQ/L (136-145)
[2017-04-21 10:49] LABS: ALKALINE PHOSPHATASE 70 U/L (45-117); ALT (GPT) 36 U/L (12-78); TOTAL BILIRUBIN ADULT 0.2 MG/DL (0.2-1.0); TOTAL PROTEIN 7.5 GM/DL (6.4-8.2)
[2017-04-21 10:58] LABS: PHENYTOIN (DILANTIN) 42.7 MCG/ML (10.0-20.0)
--- NOTE | 2017-04-21 13:39 | HHI.PR ---
Subjective Remarks in no acute distress. is awake and more alert today. d/w the RN and no acute issues over night. dilantin level trend noted. Objective Vitals Vital Signs Date Time Temp Pulse Resp B/P (MAP) Pulse Ox O2 Delivery O2 Flow Rate FiO2 04/21/17 06:47 97.9 93 16 113/66 (82) 100 04/20/17 19:07 97.5 113 18 155/63 (93) Result Diagram: 04/21/17 0914 Objective Remarks GENERAL: This is a well-nourished, well-developed patient, in no apparent distress. CARDIOVASCULAR: Regular rate and regular rhythm without murmurs, gallops, or rubs. RESPIRATORY: Clear to auscultation. Breath sounds equal bilaterally. No wheezes , rales, or rhonchi. GASTROINTESTINAL: Abdomen soft, non-tender, nondistended. Normal, active bowel sounds MUSCULOSKELETAL: Extremities without clubbing, cyanosis, or edema. NEURO: awake and alert; oriented to person and place but not to time. Medications and IVs Inpatient Medications Acetaminophen (Tylenol) 650 mg Q4H PRN PO Pain 1-5 or Temp >101F; Start at 17:30 Al Hydrox/Mg Hydrox/Simethicone (Mag-Al Plus Susp Liq) 30 ml Q6H PRN PO DYSPEPSIA; Start 04/04/17 at 17:30 Amlodipine Besylate (Norvasc) 5 mg DAILY PO Last administered on 04/21/17 08:34 ; Start 04/07/17 at 09:00 Cholecalciferol (Vitamin D3) 1,000 units DAILY PO Last administered on 08:34; Start 04/06/17 at 09:00 Diphenhydramine HCl (Benadryl Inj) 50 mg NOW ONCE IM ; Start 04/06/17 at 20:34 ; Stop 04/06/17 at 20:49; Status DC Hydroxyzine HCl (Atarax) 50 mg Q6H PRN PO ANXIETY Last administered on 21:40; Start 04/04/17 at 17:30; Status Future hold Lisinopril (Prinivil) 20 mg DAILY PO Last administered on 04/21/17 08:34; Start 04/02/17 at 13:45 Lorazepam (Ativan Inj) 2 mg NOW ONCE IM ; Start 04/06/17 at 20:34; Stop 04/06 at 20:49; Status DC Lorazepam (Ativan) 1 mg Q6H PRN PO MODERATE TO SEVERE ANXIETY Last administered on 04/20/17at 09:30; Start 04/04/17 at 17:30; Status Future hold Magnesium Hydroxide (Milk Of Magnesia Liq) 30 ml DAILY PRN PO CONSTIPATION; Start 04/04/17 at 17:30 Midazolam HCl (Versed Inj) 1 mg ONCE ONCE IM Last administered on 04/02/17t 11:04; Start 04/02/17 at 10:45; Stop 04/02/17 at 10:47; Status DC Phenytoin (Dilantin Liq) 150 mg Q12HR PO ; Start 04/20/17 at 21:00; Status Future Hold Phenytoin (Dilantin) 100 mg ONCE ONCE PO Last administered on 04/06/17t 16:37 ; Start 04/06/17 at 15:15; Stop 04/06/17 at 16:11; Status DC Quetiapine Fumarate (SEROquel) 200 mg BID PO Last administered on 04/21/17at 08: 34; Start 04/20/17 at 21:00 Ziprasidone (Geodon Inj) 20 mg NOW ONCE IM ; Start 04/06/17 at 20:34; Stop at 20:49; Status DC A/P Problem List: (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 -neuro-checks and fall precautions. -was previously d/w the poison control. HTN - Chronic issue patient on Lisinopril and Norvasc, BP stable Vitamin D Deficiency - Replacement with Cholecalciferol 1,000units PO daily. VTE: ambulating Problem Qualifiers (1) HTN (hypertension): Qualified Codes: I10 - Essential (primary) hypertension Aleja Harrison MD Apr 21, 2017 13:39
--- NOTE | 2017-04-21 15:47 | HHI.PYPN ---
Subjective Remarks Reclusive and calm. Review of Systems Except as stated in HPI: all other systems reviewed are Neg Mental Status Examination Appearance: Disheveled Consciousness: Alert Orientation: Person (at least) Motor Activity: Other (no abnormal motor movements noted) Speech: Unremarkable Language: Other (yes/no answers) Fund of Knowledge: Inadequate Attention and Concentration: Inadequate Memory: Impaired Mood: Irritable Affect: Irritable Thought Process & Associations: Other (thought control) Thought Content: Hallucinations, Other (limited sample) Hallucination Type: Auditory Delusion Type: Paranoid Suicidal Ideation: No Suicidal Plan: No Suicidal Intention: No Homicidal Ideation: No Homicidal Plan: No Homicidal Intention: No Insight: Poor Judgment: Poor Results Labs Test 04/21/17 09:14 Blood Urea Nitrogen 20 MG/DL Creatinine 1.07 MG/DL Random Glucose 116 MG/DL Total Protein 7.5 GM/DL Albumin 3.8 GM/DL Calcium Level 9.0 MG/DL Alkaline Phosphatase 70 U/L Aspartate Amino Transf (AST/SGOT) 31 U/L Alanine Aminotransferase (ALT/SGPT) 36 U/L Total Bilirubin 0.2 MG/DL Sodium Level 140 MEQ/L Potassium Level 4.0 MEQ/L Chloride Level 101 MEQ/L Carbon Dioxide Level 31.6 MEQ/L Anion Gap 7 MEQ/L Estimat Glomerular Filtration Rate 104 ML/MIN Phenytoin (Dilantin) Level 42.7 MCG/ML Vitals/IOs Vital Signs Date Time Temp Pulse Resp B/P (MAP) Pulse Ox O2 Delivery O2 Flow Rate FiO2 04/21/17 06:47 97.9 93 16 113/66 (82) 100 Assessment & Plan Problem List: (1) Intermittent explosive disorder ICD Codes: F63.81 - Intermittent explosive disorder (2) Unspecified psychosis ICD Codes: F29 - Unspecified psychosis not due to a substance or known physiological condition Assessment & Plan Estimated LOS: days. Continue to monitor for medication efficacy. Justification for Cont. Inpt. Unable to care for self. Andi Avila MD Apr 21, 2017 15:47
[2017-04-21 18:24] VITALS: BP 124/63; PULSE 90; RESP 17; TEMP 97.7; O2SAT 100
[2017-04-21] MEDS: QUEtiapine FUMARATE 300 MG TAB PO SCH (21:32)
[2017-04-22 06:43] VITALS: BP 132/68; PULSE 90; RESP 16; TEMP 97.9; O2SAT 99
[2017-04-22] MEDS: LISINOPRIL 20 MG TAB PO SCH (08:37)
[2017-04-22] MEDS: QUEtiapine FUMARATE 100 MG TAB PO SCH ×2 (08:37→22:15)
[2017-04-22] MEDS: amLODIPine BESYLATE 5 MG TAB PO SCH (08:37)
[2017-04-22] MEDS: CHOLECALCIFEROL (VIT D3) 1000 UNIT TAB PO SCH (09:00)
--- NOTE | 2017-04-22 13:53 | HHI.PR ---
Subjective Remarks in no distress. awake and alert. dilantin level trend noted. Objective Vitals Vital Signs Date Time Temp Pulse Resp B/P (MAP) Pulse Ox O2 Delivery O2 Flow Rate FiO2 04/22/17 06:43 97.9 90 16 132/68 (89) 99 04/21/17 18:24 97.7 90 17 124/63 (83) 100 I/O 04/21/17 04/21/17 04/21/17 04/22/17 04/22/17 04/22/17 07:00 15:00 23:00 07:00 15:00 23:00 Intake Total 240 ml Balance 240 ml Intake Oral 240 ml Result Diagram: 04/21/17913 Objective Remarks GENERAL: This is a well-nourished, well-developed patient, in no apparent distress. CARDIOVASCULAR: Regular rate and regular rhythm without murmurs, gallops, or rubs. RESPIRATORY: Clear to auscultation. Breath sounds equal bilaterally. No wheezes , rales, or rhonchi. GASTROINTESTINAL: Abdomen soft, non-tender, nondistended. Normal, active bowel sounds MUSCULOSKELETAL: Extremities without clubbing, cyanosis, or edema. NEURO: awake and alert; oriented to person and place but not to time. Medications and IVs Inpatient Medications Acetaminophen (Tylenol) 650 mg Q4H PRN PO Pain 1-5 or Temp >101F; Start at 17:30 Al Hydrox/Mg Hydrox/Simethicone (Mag-Al Plus Susp Liq) 30 ml Q6H PRN PO DYSPEPSIA; Start 04/04/17 at 17:30 Amlodipine Besylate (Norvasc) 5 mg DAILY PO Last administered on 04/22/17at 08:37 ; Start 04/07/17 at 09:00 Cholecalciferol (Vitamin D3) 1,000 units DAILY PO Last administered on 09:00; Start 04/06/17 at 09:00 Diphenhydramine HCl (Benadryl Inj) 50 mg NOW ONCE IM ; Start 04/06/17 at 20:34 ; Stop 04/06/17 at 20:49; Status DC Hydroxyzine HCl (Atarax) 50 mg Q6H PRN PO ANXIETY Last administered on at 21:40; Start 04/04/17 at 17:30; Status Future hold Lisinopril (Prinivil) 20 mg DAILY PO Last administered on 04/22/17 08:37; Start 04/02/17 at 13:45 Lorazepam (Ativan Inj) 2 mg NOW ONCE IM ; Start 04/06/17 at 20:34; Stop 04/06 at 20:49; Status DC Lorazepam (Ativan) 1 mg Q6H PRN PO MODERATE TO SEVERE ANXIETY Last administered on 04/20/17 09:30; Start 04/04/17 at 17:30; Status Future hold Magnesium Hydroxide (Milk Of Magnesia Liq) 30 ml DAILY PRN PO CONSTIPATION; Start 04/04/17 at 17:30 Midazolam HCl (Versed Inj) 1 mg ONCE ONCE IM Last administered on 04/02/17t 11:04; Start 04/02/17 at 10:45; Stop 04/02/17 at 10:47; Status DC Phenytoin (Dilantin Liq) 150 mg Q12HR PO ; Start 04/20/17 at 21:00; Status Future Hold Phenytoin (Dilantin) 100 mg ONCE ONCE PO Last administered on 04/06/17t 16:37 ; Start 04/06/17 at 15:15; Stop 04/06/17 at 16:11; Status DC Quetiapine Fumarate (SEROquel) 200 mg BID PO Last administered on 04/22/17 08: 37; Start 04/20/17 at 21:00 Ziprasidone (Geodon Inj) 20 mg NOW ONCE IM ; Start 04/06/17 at 20:34; Stop at 20:49; Status DC A/P Problem List: (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 -continue to hold dilantin -will monitor dilantin level closely; repeat the level daily. -neuro-checks and fall precautions. -was previously d/w the poison control. HTN - Chronic issue patient on Lisinopril and Norvasc, BP stable Vitamin D Deficiency - Replacement with Cholecalciferol 1,000units PO daily. VTE: ambulating Problem Qualifiers (1) HTN (hypertension): Qualified Codes: I10 - Essential (primary) hypertension Aleja Harrison MD Apr 22, 2017 13:53
[2017-04-22 18:38] VITALS: BP 130/74; PULSE 109; RESP 18; TEMP 98; O2SAT 98
[2017-04-22] MEDS: QUEtiapine FUMARATE 300 MG TAB PO SCH (22:15)
[2017-04-23 05:49] VITALS: BP 106/58; PULSE 97; RESP 17; TEMP 98.7; O2SAT 100
[2017-04-23] MEDS: QUEtiapine FUMARATE 100 MG TAB PO SCH ×2 (09:25→21:53)
[2017-04-23] MEDS: LISINOPRIL 20 MG TAB PO SCH (09:25)
[2017-04-23] MEDS: CHOLECALCIFEROL (VIT D3) 1000 UNIT TAB PO SCH (09:25)
[2017-04-23] MEDS: amLODIPine BESYLATE 5 MG TAB PO SCH (09:26)
--- NOTE | 2017-04-23 13:17 | HHI.PYPN ---
Subjective Remarks Patient was seen and case discussed with nursing. This morning, patient was complaining of auditory hallucinations controlling his thoughts. During this interview he says "they went away." Continues to be followed by the medical team and they'll events of this trending down and is now 32 Mental Status Examination Appearance: Disheveled Consciousness: Alert Orientation: Person (at least) Motor Activity: Other (no abnormal motor movements noted) Speech: Unremarkable Language: Other (yes/no answers) Fund of Knowledge: Inadequate Attention and Concentration: Inadequate Memory: Impaired Mood: Oppositional Affect: Appropriate Thought Process & Associations: Other (thought control) Thought Content: Hallucinations, Other (limited sample) Hallucination Type: Auditory (denies now) Delusion Type: Paranoid Suicidal Ideation: No Suicidal Plan: No Suicidal Intention: No Homicidal Ideation: No Homicidal Plan: No Homicidal Intention: No Insight: Poor Judgment: Poor Results Labs Test 04/23/17 12:13 Phenytoin (Dilantin) Level 32.0 MCG/ML Vitals/IOs Vital Signs Date Time Temp Pulse Resp B/P (MAP) Pulse Ox O2 Delivery O2 Flow Rate FiO2 04/23/17 05:49 98.7 97 17 106/58 (74) 100 Assessment & Plan Problem List: (1) Intermittent explosive disorder ICD Codes: F63.81 - Intermittent explosive disorder (2) Unspecified psychosis ICD Codes: F29 - Unspecified psychosis not due to a substance or known physiological condition Assessment & Plan Continue current treatment plan Justification for Cont. Inpt. Patient would decompensate in a less restrictive setting Chapo Woodward DO Apr 23, 2017 13:17
--- NOTE | 2017-04-23 13:42 | HHI.PR ---
Subjective Remarks in no acute distress. awake and alert and walking in the room. dilantin level rend noted. Objective Vitals Vital Signs Date Time Temp Pulse Resp B/P (MAP) Pulse Ox O2 Delivery O2 Flow Rate FiO2 04/23/17 05:49 98.7 97 17 106/58 (74) 100 04/22/17 18:38 98.0 109 18 130/74 (92) 98 I/O 04/22/17 04/22/17 04/22/17 04/23/17 04/23/17 04/23/17 07:00 15:00 23:00 07:00 15:00 23:00 Intake Total 240 ml 480 ml Balance 240 ml 480 ml Intake Oral 240 ml 480 ml Result Diagram: 04/21/17913 Objective Remarks GENERAL: This is a well-nourished, well-developed patient, in no apparent distress. CARDIOVASCULAR: Regular rate and regular rhythm without murmurs, gallops, or rubs. RESPIRATORY: Clear to auscultation. Breath sounds equal bilaterally. No wheezes , rales, or rhonchi. GASTROINTESTINAL: Abdomen soft, non-tender, nondistended. Normal, active bowel sounds MUSCULOSKELETAL: Extremities without clubbing, cyanosis, or edema. NEURO: awake and alert; oriented to person and place but not to time. Medications and IVs Inpatient Medications Acetaminophen (Tylenol) 650 mg Q4H PRN PO Pain 1-5 or Temp >101F; Start at 17:30 Al Hydrox/Mg Hydrox/Simethicone (Mag-Al Plus Susp Liq) 30 ml Q6H PRN PO DYSPEPSIA; Start 04/04/17 at 17:30 Amlodipine Besylate (Norvasc) 5 mg DAILY PO Last administered on 04/22/17at 08:37 ; Start 04/07/17 at 09:00 Cholecalciferol (Vitamin D3) 1,000 units DAILY PO Last administered on at 09:25; Start 04/06/17 at 09:00 Diphenhydramine HCl (Benadryl Inj) 50 mg NOW ONCE IM ; Start 04/06/17 at 20:34 ; Stop 04/06/17 at 20:49; Status DC Hydroxyzine HCl (Atarax) 50 mg Q6H PRN PO ANXIETY Last administered on 21:40; Start 04/04/17 at 17:30; Status Future hold Lisinopril (Prinivil) 20 mg DAILY PO Last administered on 04/22/17 08:37; Start 04/02/17 at 13:45 Lorazepam (Ativan Inj) 2 mg NOW ONCE IM ; Start 04/06/17 at 20:34; Stop 04/06 at 20:49; Status DC Lorazepam (Ativan) 1 mg Q6H PRN PO MODERATE TO SEVERE ANXIETY Last administered on 04/20/17 09:30; Start 04/04/17 at 17:30; Status Future hold Magnesium Hydroxide (Milk Of Magnesia Liq) 30 ml DAILY PRN PO CONSTIPATION; Start 04/04/17 at 17:30 Midazolam HCl (Versed Inj) 1 mg ONCE ONCE IM Last administered on 04/02/17t 11:04; Start 04/02/17 at 10:45; Stop 04/02/17 at 10:47; Status DC Phenytoin (Dilantin Liq) 150 mg Q12HR PO ; Start 04/20/17 at 21:00; Status Future Hold Phenytoin (Dilantin) 100 mg ONCE ONCE PO Last administered on 04/06/17t 16:37 ; Start 04/06/17 at 15:15; Stop 04/06/17 at 16:11; Status DC Quetiapine Fumarate (SEROquel) 200 mg BID PO Last administered on 04/23/17 09: 25; Start 04/20/17 at 21:00 Ziprasidone (Geodon Inj) 20 mg NOW ONCE IM ; Start 04/06/17 at 20:34; Stop at 20:49; Status DC A/P Problem List: (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 -continue to hold dilantin -will monitor dilantin level closely; repeat the level daily. -neuro-checks and fall precautions. -was previously d/w the poison control. HTN - Chronic issue patient on Lisinopril and Norvasc, BP stable Vitamin D Deficiency - Replacement with Cholecalciferol 1,000units PO daily. VTE: ambulating Problem Qualifiers (1) HTN (hypertension): Qualified Codes: I10 - Essential (primary) hypertension Aleja Harrison MD Apr 23, 2017 13:42
[2017-04-23 18:19] VITALS: BP 125/67; PULSE 92; RESP 17; TEMP 98.2; O2SAT 97
[2017-04-23] MEDS: QUEtiapine FUMARATE 300 MG TAB PO SCH (21:53)
[2017-04-24] MEDS: LISINOPRIL 20 MG TAB PO SCH (09:42)
[2017-04-24] MEDS: amLODIPine BESYLATE 5 MG TAB PO SCH (09:42)
[2017-04-24] MEDS: QUEtiapine FUMARATE 100 MG TAB PO SCH ×2 (09:42→21:41)
[2017-04-24] MEDS: CHOLECALCIFEROL (VIT D3) 1000 UNIT TAB PO SCH (09:42)
--- NOTE | 2017-04-24 12:17 | HHI.PR ---
Subjective Remarks in no distress. clinically no change. Objective Vitals Vital Signs Date Time Temp Pulse Resp B/P (MAP) Pulse Ox O2 Delivery O2 Flow Rate FiO2 04/23/17 18:19 98.2 92 17 125/67 (86) 97 Result Diagram: 04/21/17 0914 Objective Remarks GENERAL: This is a well-nourished, well-developed patient, in no apparent distress. CARDIOVASCULAR: Regular rate and regular rhythm without murmurs, gallops, or rubs. RESPIRATORY: Clear to auscultation. Breath sounds equal bilaterally. No wheezes , rales, or rhonchi. GASTROINTESTINAL: Abdomen soft, non-tender, nondistended. Normal, active bowel sounds MUSCULOSKELETAL: Extremities without clubbing, cyanosis, or edema. NEURO: awake and alert; oriented to person and place but not to time. Medications and IVs Inpatient Medications Acetaminophen (Tylenol) 650 mg Q4H PRN PO Pain 1-5 or Temp >101F; Start at 17:30 Al Hydrox/Mg Hydrox/Simethicone (Mag-Al Plus Susp Liq) 30 ml Q6H PRN PO DYSPEPSIA; Start 04/04/17 at 17:30 Amlodipine Besylate (Norvasc) 5 mg DAILY PO Last administered on 04/24/17 09:42 ; Start 04/07/17 at 09:00 Cholecalciferol (Vitamin D3) 1,000 units DAILY PO Last administered on 09:42; Start 04/06/17 at 09:00 Diphenhydramine HCl (Benadryl Inj) 50 mg NOW ONCE IM ; Start 04/06/17 at 20:34 ; Stop 04/06/17 at 20:49; Status DC Hydroxyzine HCl (Atarax) 50 mg Q6H PRN PO ANXIETY Last administered on 21:40; Start 04/04/17 at 17:30; Status Future hold Lisinopril (Prinivil) 20 mg DAILY PO Last administered on 04/24/17 09:42; Start 04/02/17 at 13:45 Lorazepam (Ativan Inj) 2 mg NOW ONCE IM ; Start 04/06/17 at 20:34; Stop 04/06 at 20:49; Status DC Lorazepam (Ativan) 1 mg Q6H PRN PO MODERATE TO SEVERE ANXIETY Last administered on 04/20/17 09:30; Start 04/04/17 at 17:30; Status Future hold Magnesium Hydroxide (Milk Of Magnesia Liq) 30 ml DAILY PRN PO CONSTIPATION; Start 04/04/17 at 17:30 Midazolam HCl (Versed Inj) 1 mg ONCE ONCE IM Last administered on 04/02/17 11:04; Start 04/02/17 at 10:45; Stop 04/02/17 at 10:47; Status DC Phenytoin (Dilantin Liq) 150 mg Q12HR PO ; Start 04/20/17 at 21:00; Status Future Hold Phenytoin (Dilantin) 100 mg ONCE ONCE PO Last administered on 04/06/17 16:37 ; Start 04/06/17 at 15:15; Stop 04/06/17 at 16:11; Status DC Quetiapine Fumarate (SEROquel) 200 mg BID PO Last administered on 04/24/17 09: 42; Start 04/20/17 at 21:00 Ziprasidone (Geodon Inj) 20 mg NOW ONCE IM ; Start 04/06/17 at 20:34; Stop at 20:49; Status DC A/P Problem List: (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 -continue to hold dilantin -will monitor dilantin level closely; repeat the level daily. -neuro-checks and fall precautions. -was previously d/w the poison control. HTN - Chronic issue patient on Lisinopril and Norvasc, BP stable Vitamin D Deficiency - Replacement with Cholecalciferol 1,000units PO daily. VTE: ambulating Problem Qualifiers (1) HTN (hypertension): Qualified Codes: I10 - Essential (primary) hypertension Aleja Harrison MD Apr 24, 2017 12:17
--- NOTE | 2017-04-24 12:42 | HHI.PYPN ---
Subjective Remarks Patient was seen and case discussed with nursing. Patient continues to be bothered by bizarre delusions and auditory hallucinations. Today he is perseverant the man named Xavier that he feels is following him and watching him. He is asking us to call the police. Denies suicidal or homicidal ideation intent or plan, compliant with medications. No outbursts Mental Status Examination Appearance: Disheveled Consciousness: Alert Orientation: Person (at least) Motor Activity: Other (no abnormal motor movements noted) Speech: Unremarkable Language: Other (yes/no answers) Fund of Knowledge: Inadequate Attention and Concentration: Inadequate Memory: Impaired Mood: Anxious Affect: Anxious Thought Process & Associations: Other (thought control) Thought Content: Hallucinations, Other (limited sample) Hallucination Type: Auditory (denies now) Delusion Type: Paranoid Suicidal Ideation: No Suicidal Plan: No Suicidal Intention: No Homicidal Ideation: No Homicidal Plan: No Homicidal Intention: No Insight: Poor Judgment: Poor Results Labs Test 04/24/17 10:05 Phenytoin (Dilantin) Level 28.4 MCG/ML Vitals/IOs Vital Signs Date Time Temp Pulse Resp B/P (MAP) Pulse Ox O2 Delivery O2 Flow Rate FiO2 04/23/17 18:19 98.2 92 17 125/67 (86) 97 Assessment & Plan Problem List: (1) Intermittent explosive disorder ICD Codes: F63.81 - Intermittent explosive disorder (2) Unspecified psychosis ICD Codes: F29 - Unspecified psychosis not due to a substance or known physiological condition Assessment & Plan Continue current treatment plan Justification for Cont. Inpt. Patient will decompensate in a less restrictive setting Chapo Woodward DO Apr 24, 2017 12:42
[2017-04-24 16:12] VITALS: BP 134/74; PULSE 102; RESP 18; TEMP 97.7; O2SAT 98
[2017-04-24] MEDS: QUEtiapine FUMARATE 300 MG TAB PO SCH (21:41)
[2017-04-25 06:15] VITALS: BP 129/65; PULSE 93; RESP 18; TEMP 97.6; O2SAT 97
[2017-04-25] MEDS: LISINOPRIL 20 MG TAB PO SCH (09:23)
[2017-04-25] MEDS: CHOLECALCIFEROL (VIT D3) 1000 UNIT TAB PO SCH (09:23)
[2017-04-25] MEDS: amLODIPine BESYLATE 5 MG TAB PO SCH (09:23)
[2017-04-25] MEDS: QUEtiapine FUMARATE 100 MG TAB PO SCH ×2 (09:23→21:48)
--- NOTE | 2017-04-25 13:29 | HHI.PR ---
Subjective Remarks Follow-up HTN and Dilantin toxicity. Patient seen and examined in room resting comfortably. He denies any fevers, chills, nausea, vomiting or diarrhea. Is asking what time his doctor will come by to see him. Discussed with nurse, no new or acute complaints. Objective Vitals Vital Signs Date Time Temp Pulse Resp B/P (MAP) Pulse Ox O2 Delivery O2 Flow Rate FiO2 04/25/17 06:15 97.6 93 18 129/65 (86) 97 04/24/17 16:12 97.7 102 18 134/74 (94) 98 I/O 04/24/17 04/24/17 04/24/17 04/25/17 04/25/17 04/25/17 07:00 15:00 23:00 07:00 15:00 23:00 Intake Total 480 ml Balance 480 ml Intake Oral 480 ml Result Diagram: 04/21/17 0914 Objective Remarks GENERAL: This is a well-nourished, pleasant patient, in no apparent distress. Child like demeanor. SKIN: No rashes, ecchymoses or lesions. Cool and dry. HEAD: Atraumatic. Normocephalic. EYES: Pupils equal round and reactive. No injection or drainage. ENT: Airway patent. NECK: Trachea midline. CARDIOVASCULAR: Regular rate and rhythm without murmurs, gallops, or rubs. RESPIRATORY: Clear to auscultation. Breath sounds equal bilaterally. No wheezes , rales, or rhonchi. GASTROINTESTINAL: Abdomen soft, non-tender, nondistended. No guarding. MUSCULOSKELETAL: Extremities without clubbing, cyanosis, or edema. NEUROLOGICAL: Awake and alert. Moves all extremities spontaneously, ambulating without difficulties. Motor and sensory grossly within normal limits. Normal speech. 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 He presents to ED due to her recent history of disrobing and walking in the middle of the road. Patient has had episodes of aggression towards the the staff and other patients. He has been admitted to inpatient psych and medical team consulted for medical management. Intermittent explosive disorder - Treatment per psych Dandy-Walker syndrome Mental retardation - Chronic issue, treatment per psych Dilantin toxicity, acute Hx Seizure - Dilantin levels 42.7--->39.4--->32.0--->28.4--->22.7 (today) - Continue to hold Dilantin, daily Dilantin levels, levels continue to trend down - Neuro checks, fall precautions - Patient more awake and alert - Monitor of seizure activity HTN, controlled - Chronic issue patient on Lisinopril 20mg and Norvasc, BP stable Vitamin D Deficiency - Replacement with Cholecalciferol 1,000units PO daily. VTE: ambulating Discussed with patient and nursing. Problem Qualifiers (1) HTN (hypertension): Qualified Codes: I10 - Essential (primary) hypertension Radha Schultz Apr 25, 2017 13:29
--- NOTE | 2017-04-25 14:23 | HHI.PYPN ---
Subjective Remarks No change. Review of Systems ROS Limitations: Clinical Condition Except as stated in HPI: all other systems reviewed are Neg Mental Status Examination Appearance: Disheveled Consciousness: Alert Orientation: Person (at least) Motor Activity: Other (no abnormal motor movements noted) Speech: Unremarkable Language: Other (yes/no answers) Fund of Knowledge: Inadequate Attention and Concentration: Inadequate Memory: Impaired Mood: Anxious Affect: Anxious Thought Process & Associations: Other (thought control) Thought Content: Hallucinations, Other (limited sample) Hallucination Type: Auditory (denies now) Delusion Type: Paranoid Suicidal Ideation: No Suicidal Plan: No Suicidal Intention: No Homicidal Ideation: No Homicidal Plan: No Homicidal Intention: No Insight: Poor Judgment: Poor Results Labs Test 04/25/17 08:52 Phenytoin (Dilantin) Level 22.7 MCG/ML Vitals/IOs Vital Signs Date Time Temp Pulse Resp B/P (MAP) Pulse Ox O2 Delivery O2 Flow Rate FiO2 04/25/17 06:15 97.6 93 18 129/65 (86) 97 Intake and Output 04/25/17 04/25/17 04/26/17 08:00 16:00 00:00 Intake Total 480 ml Balance 480 ml Assessment & Plan Problem List: (1) Intermittent explosive disorder ICD Codes: F63.81 - Intermittent explosive disorder (2) Unspecified psychosis ICD Codes: F29 - Unspecified psychosis not due to a substance or known physiological condition Assessment & Plan Estimated LOS: days. Continue current treatment plan. Justification for Cont. Inpt. Unable to care for self. Andi Avila MD Apr 25, 2017 14:23
[2017-04-25 18:36] VITALS: BP 115/64; PULSE 87; RESP 18; TEMP 99.1; O2SAT 95
[2017-04-25] MEDS: QUEtiapine FUMARATE 300 MG TAB PO SCH (21:48)
[2017-04-26 06:14] VITALS: BP 99/56; PULSE 97; RESP 17; TEMP 98.2; O2SAT 99
[2017-04-26 07:00] VITALS: BP 107/63; PULSE 93; RESP 17; TEMP 98.9; O2SAT 95
[2017-04-26] MEDS: LISINOPRIL 20 MG TAB PO SCH (09:00)
[2017-04-26] MEDS: amLODIPine BESYLATE 5 MG TAB PO SCH ×2 (09:00→09:20)
[2017-04-26] MEDS: QUEtiapine FUMARATE 100 MG TAB PO SCH ×2 (09:20→21:20)
[2017-04-26] MEDS: CHOLECALCIFEROL (VIT D3) 1000 UNIT TAB PO SCH (09:20)
[2017-04-26] MEDS ORDERED: QUET1TAB10 PO (10:00)
[2017-04-26] MEDS ORDERED: Lactulose PO (10:00)
[2017-04-26] MEDS ORDERED: LISI-515 PO (10:00)
[2017-04-26] MEDS ORDERED: AMLO10 PO (10:00)
[2017-04-26] MEDS ORDERED: QUET1TAB8 PO (10:00)
[2017-04-26] MEDS ORDERED: DILA100C PO ×2 (10:00→14:42)
[2017-04-26] MEDS ORDERED: CHOL1000 PO (10:00)
--- NOTE | 2017-04-26 14:25 | HHI.PR ---
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 He presents to ED due to her recent history of disrobing and walking in the middle of the road. Patient has had episodes of aggression towards the the staff and other patients. He has been admitted to inpatient psych and medical team consulted for medical management. Intermittent explosive disorder - pleasant and cooperative and delightful today - Treatment per psych Dandy-Walker syndrome Mental retardation - Chronic issue, treatment per psych Dilantin toxicity, acute Hx Seizure - Dilantin levels 42.7--->39.4--->32.0--->28.4--->22.7 --17 today 04/26 - Continue to hold Dilantin, daily Dilantin levels, levels continue to trend down - Neuro checks, fall precautions - Patient more awake and alert - Monitor of seizure activity - recheck level in am - and restart Dilantin at 100 mg po bid HTN, controlled - decrease to 5 mg po daily- amlodipine, 10 mg daily Lisinopril Vitamin D Deficiency - Replacement with Cholecalciferol 1,000units PO daily. VTE: ambulating Discussed with patient and nursing. Problem Qualifiers (1) HTN (hypertension): Qualified Codes: I10 - Essential (primary) hypertension Leo Cruz MD Apr 26, 2017 14:25
[2017-04-26] MEDS ORDERED: AMLO5 PO (14:36)
[2017-04-26] MEDS ORDERED: LISI10TA3 PO (14:37)
[2017-04-26] MEDS: QUEtiapine FUMARATE 300 MG TAB PO SCH (21:20)
[2017-04-27 05:47] VITALS: BP 102/53; PULSE 80; RESP 16; TEMP 98.1
[2017-04-27] MEDS: amLODIPine BESYLATE 5 MG TAB PO SCH (08:36)
[2017-04-27] MEDS: PHENYTOIN SODIUM 100 MG CAP PO SCH ×2 (08:36→21:53)
[2017-04-27] MEDS: QUEtiapine FUMARATE 100 MG TAB PO SCH ×2 (08:36→21:53)
[2017-04-27] MEDS: CHOLECALCIFEROL (VIT D3) 1000 UNIT TAB PO SCH (08:37)
[2017-04-27] MEDS ORDERED: LISINOPRIL 10 MG TAB PO SCH (09:00)
--- NOTE | 2017-04-27 13:03 | HHI.PYPN ---
Subjective Remarks Progress note for 04/26/2017. Patient plan for discharge today. Does not appear discharges occurring. Review of Systems ROS Limitations: Clinical Condition Except as stated in HPI: all other systems reviewed are Neg Mental Status Examination Appearance: Disheveled Consciousness: Alert Orientation: Person (at least) Motor Activity: Other (no abnormal motor movements noted) Speech: Unremarkable Language: Other (yes/no answers) Fund of Knowledge: Inadequate Attention and Concentration: Inadequate Memory: Impaired Mood: Anxious Affect: Anxious Thought Process & Associations: Other (thought control) Thought Content: Hallucinations, Other (limited sample) Hallucination Type: Auditory (denies now) Delusion Type: Paranoid Suicidal Ideation: No Suicidal Plan: No Suicidal Intention: No Homicidal Ideation: No Homicidal Plan: No Homicidal Intention: No Insight: Poor Judgment: Poor Results Labs Test 04/27/17 10:36 Phenytoin (Dilantin) Level 11.8 MCG/ML Vitals/IOs Vital Signs Date Time Temp Pulse Resp B/P (MAP) Pulse Ox O2 Delivery O2 Flow Rate FiO2 04/27/17 05:47 98.1 80 16 102/53 (69) 04/26/17 07:00 95 Assessment & Plan Problem List: (1) Intermittent explosive disorder ICD Codes: F63.81 - Intermittent explosive disorder (2) Unspecified psychosis ICD Codes: F29 - Unspecified psychosis not due to a substance or known physiological condition Assessment & Plan Estimated LOS: days. Placement issue Justification for Cont. Inpt. Placement issue Andi Avila MD Apr 27, 2017 13:03
--- NOTE | 2017-04-27 13:04 | HHI.PYPN ---
Subjective Remarks No change. Review of Systems ROS Limitations: Clinical Condition Except as stated in HPI: all other systems reviewed are Neg Mental Status Examination Appearance: Disheveled Consciousness: Alert Orientation: Person (at least) Motor Activity: Other (no abnormal motor movements noted) Speech: Unremarkable Language: Other (yes/no answers) Fund of Knowledge: Inadequate Attention and Concentration: Inadequate Memory: Impaired Mood: Anxious Affect: Anxious Thought Process & Associations: Other (thought control) Thought Content: Hallucinations, Other (limited sample) Hallucination Type: Auditory (denies now) Delusion Type: Paranoid Suicidal Ideation: No Suicidal Plan: No Suicidal Intention: No Homicidal Ideation: No Homicidal Plan: No Homicidal Intention: No Insight: Poor Judgment: Poor Results Labs Test 04/27/17 10:36 Phenytoin (Dilantin) Level 11.8 MCG/ML Vitals/IOs Vital Signs Date Time Temp Pulse Resp B/P (MAP) Pulse Ox O2 Delivery O2 Flow Rate FiO2 04/27/17 05:47 98.1 80 16 102/53 (69) 04/26/17 07:00 95 Assessment & Plan Problem List: (1) Intermittent explosive disorder ICD Codes: F63.81 - Intermittent explosive disorder (2) Unspecified psychosis ICD Codes: F29 - Unspecified psychosis not due to a substance or known physiological condition Assessment & Plan Estimated LOS: days placement issue Justification for Cont. Inpt. Placement issue Andi Avila MD Apr 27, 2017 13:04
[2017-04-27] MEDS ORDERED: PHENYTOIN SODIUM 100 MG CAP PO ONE (17:00)
--- NOTE | 2017-04-27 18:03 | HHI.PR ---
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 He presents to ED due to her recent history of disrobing and walking in the middle of the road. Patient has had episodes of aggression towards the the staff and other patients. He has been admitted to inpatient psych and medical team consulted for medical management. Intermittent explosive disorder - pleasant and cooperative and delightful today - Treatment per psych Dandy-Walker syndrome Mental retardation - Chronic issue, treatment per psych Dilantin toxicity, acute Hx Seizure - Dilantin levels 42.7--->39.4--->32.0--->28.4--->22.7 --17 -- 11 - Monitor of seizure activity - recheck level in am 04/28 - restarted Dilantin at 100 mg po bid 04/26 HTN, controlled - amlodipine 5 mg daily - DC enalapril -Monitor on a single agent Vitamin D Deficiency - Replacement with Cholecalciferol 1,000units PO daily. VTE: ambulating Problem Qualifiers (1) HTN (hypertension): Qualified Codes: I10 - Essential (primary) hypertension Leo Cruz MD Apr 27, 2017 18:03
[2017-04-27 18:21] VITALS: BP 113/70; PULSE 98; RESP 16; TEMP 98.6; O2SAT 99
[2017-04-27] MEDS: QUEtiapine FUMARATE 300 MG TAB PO SCH (21:53)
[2017-04-28 06:00] VITALS: BP 98/55; PULSE 86; RESP 17; TEMP 98.2; O2SAT 98
[2017-04-28] MEDS ORDERED: ENALAPRIL MALEATE 5 MG TAB PO SCH (09:00)
[2017-04-28] MEDS: PHENYTOIN SODIUM 100 MG CAP PO SCH ×2 (09:08→20:12)
[2017-04-28] MEDS: QUEtiapine FUMARATE 100 MG TAB PO SCH ×2 (09:08→20:12)
[2017-04-28] MEDS: CHOLECALCIFEROL (VIT D3) 1000 UNIT TAB PO SCH (09:08)
[2017-04-28] MEDS: amLODIPine BESYLATE 5 MG TAB PO SCH (09:08)
--- NOTE | 2017-04-28 15:03 | HHI.PYPN ---
Subjective Remarks No changes. Review of Systems Except as stated in HPI: all other systems reviewed are Neg Mental Status Examination Appearance: Disheveled Consciousness: Alert Orientation: Person (at least) Motor Activity: Other (no abnormal motor movements noted) Speech: Unremarkable Language: Other (yes/no answers) Fund of Knowledge: Inadequate Attention and Concentration: Inadequate Memory: Impaired Mood: Anxious Affect: Anxious Thought Process & Associations: Other (thought control) Thought Content: Hallucinations, Other (limited sample) Hallucination Type: Auditory (denies now) Delusion Type: Paranoid Suicidal Ideation: No Suicidal Plan: No Suicidal Intention: No Homicidal Ideation: No Homicidal Plan: No Homicidal Intention: No Insight: Poor Judgment: Poor Results Labs Test 04/28/17 10:08 Phenytoin (Dilantin) Level 9.8 MCG/ML Vitals/IOs Vital Signs Date Time Temp Pulse Resp B/P (MAP) Pulse Ox O2 Delivery O2 Flow Rate FiO2 04/28/17 06:00 98.2 86 17 98/55 (65) 98 Assessment & Plan Problem List: (1) Intermittent explosive disorder ICD Codes: F63.81 - Intermittent explosive disorder (2) Unspecified psychosis ICD Codes: F29 - Unspecified psychosis not due to a substance or known physiological condition Assessment & Plan Estimated LOS: days. Calm and appropriate. Justification for Cont. Inpt. Unable to care for self. Andi Avila MD Apr 28, 2017 15:03
--- NOTE | 2017-04-28 15:13 | HHI.PR ---
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 He presents to ED due to her recent history of disrobing and walking in the middle of the road. Patient has had episodes of aggression towards the the staff and other patients. He has been admitted to inpatient psych and medical team consulted for medical management. Intermittent explosive disorder - pleasant and cooperative and delightful today - Treatment per psych Dandy-Walker syndrome Mental retardation - Chronic issue, treatment per psych Dilantin toxicity, acute Hx Seizure - Dilantin levels 42.7--->39.4--->32.0--->28.4--->22.7 --17 -- 11 - Monitor of seizure activity - recheck level 9.8 - restarted Dilantin at 100 mg po bid . give extra 100 mg po x 1 now - recheck in am HTN improved - DC enalapril 04/27 - DC amlodpine and monitor off meds altogether Vitamin D Deficiency - Replacement with Cholecalciferol 1,000units PO daily. VTE: ambulating Problem Qualifiers (1) HTN (hypertension): Qualified Codes: I10 - Essential (primary) hypertension Leo Cruz MD Apr 28, 2017 15:13
[2017-04-28] MEDS ORDERED: PILL SPLITTER OTHER PRN (15:15)
[2017-04-28] MEDS ORDERED: PHENYTOIN SODIUM 100 MG CAP PO ONE (15:15)
[2017-04-28] MEDS ORDERED: AMLO5 PO (15:22)
[2017-04-28 18:23] VITALS: BP 107/72; PULSE 88; RESP 17; TEMP 97.5; O2SAT 96
[2017-04-28] MEDS: QUEtiapine FUMARATE 300 MG TAB PO SCH (20:12)
[2017-04-29 05:59] VITALS: BP 101/56; PULSE 79; RESP 18; TEMP 98.5; O2SAT 99
[2017-04-29] MEDS ORDERED: amLODIPine BESYLATE 5 MG TAB PO SCH (09:00)
[2017-04-29] MEDS: CHOLECALCIFEROL (VIT D3) 1000 UNIT TAB PO SCH (10:56)
[2017-04-29] MEDS: PHENYTOIN SODIUM 100 MG CAP PO SCH ×3 (10:56→21:03)
[2017-04-29] MEDS: QUEtiapine FUMARATE 100 MG TAB PO SCH ×2 (10:56→21:02)
--- NOTE | 2017-04-29 14:25 | HHI.PR ---
Subjective Remarks patient looks good- very pleasant no complains of headaches good po- seen in [employer] Objective Vitals Vital Signs Date Time Temp Pulse Resp B/P (MAP) Pulse Ox O2 Delivery O2 Flow Rate FiO2 04/29/17 05:59 98.5 79 18 101/56 (71) 99 04/28/17 18:23 97.5 88 17 107/72 (84) 96 I/O 04/28/17 04/28/17 04/28/17 04/29/17 04/29/17 04/29/17 07:00 15:00 23:00 07:00 15:00 23:00 Intake Total 500 ml Balance 500 ml Intake Oral 500 ml Objective Remarks awake and alert, oriented x 3, speech clear anicteric lungs clear regular rhythm extremities no edema gait steady- no ataxia A/P Problem List: (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 He presents to ED due to her recent history of disrobing and walking in the middle of the road. Patient has had episodes of aggression towards the the staff and other patients. He has been admitted to inpatient psych and medical team consulted for medical management. Intermittent explosive disorder- behavior has been good and cooperative - delightful - Treatment per psych Dandy-Walker syndrome Mental retardation - Chronic issue, treatment per psych Dilantin toxicity, acute Hx Seizure - Dilantin levels 42.7--->39.4--->32.0--->28.4--->22.7 --17 -- 11 - Monitor of seizure activity - Increase dilantin to 100 mg tid -ff levels HTN improved- good readings no meds - DC enalapril /10 - DC amlodpine and monitor off meds altogether Vitamin D Deficiency - Replacement with Cholecalciferol 1,000units PO daily. VTE: ambulating Problem Qualifiers (1) HTN (hypertension): Qualified Codes: I10 - Essential (primary) hypertension Leo Cruz MD Apr 29, 2017 14:25
--- NOTE | 2017-04-29 16:18 | HHI.PYPN ---
Subjective Remarks no change Review of Systems ROS Limitations: Clinical Condition Except as stated in HPI: all other systems reviewed are Neg Mental Status Examination Appearance: Disheveled Consciousness: Alert Orientation: Person (at least) Motor Activity: Other (no abnormal motor movements noted) Speech: Unremarkable Language: Other (yes/no answers) Fund of Knowledge: Inadequate Attention and Concentration: Inadequate Memory: Impaired Mood: Anxious Affect: Anxious Thought Process & Associations: Other (thought control) Thought Content: Hallucinations, Other (limited sample) Hallucination Type: Auditory (denies now) Delusion Type: Paranoid Suicidal Ideation: No Suicidal Plan: No Suicidal Intention: No Homicidal Ideation: No Homicidal Plan: No Homicidal Intention: No Insight: Poor Judgment: Poor Results Labs Test 04/29/17 10:20 Phenytoin (Dilantin) Level 9.3 MCG/ML Vitals/IOs Vital Signs Date Time Temp Pulse Resp B/P (MAP) Pulse Ox O2 Delivery O2 Flow Rate FiO2 04/29/17 05:59 98.5 79 18 101/56 (71) 99 Intake and Output 04/29/17 04/29/17 04/30/17 08:00 16:00 00:00 Intake Total 500 ml 480 ml Balance 500 ml 480 ml Assessment & Plan Problem List: (1) Intermittent explosive disorder ICD Codes: F63.81 - Intermittent explosive disorder (2) Unspecified psychosis ICD Codes: F29 - Unspecified psychosis not due to a substance or known physiological condition Assessment & Plan cont treatment plan.Estimated LOS: days Justification for Cont. Inpt. placement Andi Avila MD Apr 29, 2017 16:18
[2017-04-29 18:52] VITALS: BP 137/66; PULSE 93; RESP 18; TEMP 97.8; O2SAT 98
[2017-04-29] MEDS: QUEtiapine FUMARATE 300 MG TAB PO SCH (21:03)
[2017-04-30 05:07] VITALS: BP 97/50; PULSE 74; RESP 17; TEMP 98.3; O2SAT 99
[2017-04-30] MEDS: PHENYTOIN SODIUM 100 MG CAP PO SCH ×3 (05:28→22:15)
[2017-04-30] MEDS: CHOLECALCIFEROL (VIT D3) 1000 UNIT TAB PO SCH (10:22)
[2017-04-30] MEDS: QUEtiapine FUMARATE 100 MG TAB PO SCH ×2 (10:22→22:15)
--- NOTE | 2017-04-30 15:43 | HHI.PR ---
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 He presents to ED due to her recent history of disrobing and walking in the middle of the road. Patient has had episodes of aggression towards the the staff and other patients. He has been admitted to inpatient psych and medical team consulted for medical management. Intermittent explosive disorder- behavior has been good and cooperative - delightful - Treatment per psych Dandy-Walker syndrome Mental retardation - Chronic issue, treatment per psych Dilantin toxicity, acute Hx Seizure - Dilantin levels 42.7--->39.4--->32.0--->28.4--->22.7 --17 -- 11 - Monitor of seizure activity - Increaesed dilantin to 100 mg tid - recheck in am HTN improved- good readings no meds - DC enalapril /10 - DC amlodpine and monitor off meds altogether Vitamin D Deficiency - Replacement with Cholecalciferol 1,000units PO daily. VTE: ambulating Problem Qualifiers (1) HTN (hypertension): Qualified Codes: I10 - Essential (primary) hypertension Lacierda,Alfea M. MD Apr 30, 2017 15:43
--- NOTE | 2017-04-30 15:56 | HHI.PYPN ---
Subjective Remarks Pt seen and discussed with staff. He has been spending most of day in room in bed, but did come out for meals and snacks. He is compliant with medications. No side effects. No agitation or aggression. No SI/HI Mental Status Examination Appearance: Appropriate Consciousness: Alert Orientation: Person (at least) Motor Activity: Other (no abnormal motor movements noted) Speech: Unremarkable Language: Other (yes/no answers) Fund of Knowledge: Inadequate Attention and Concentration: Inadequate Memory: Impaired Mood: Anxious Affect: Anxious Thought Process & Associations: Other (thought control) Thought Content: Appropriate, Other (limited sample) Hallucination Type: None Delusion Type: Paranoid Suicidal Ideation: No Suicidal Plan: No Suicidal Intention: No Homicidal Ideation: No Homicidal Plan: No Homicidal Intention: No Insight: Poor Judgment: Poor Results Vitals/IOs Vital Signs Date Time Temp Pulse Resp B/P (MAP) Pulse Ox O2 Delivery O2 Flow Rate FiO2 04/30/17 05:07 98.3 74 17 97/50 (66) 99 Assessment & Plan Problem List: (1) Intermittent explosive disorder ICD Codes: F63.81 - Intermittent explosive disorder (2) Unspecified psychosis ICD Codes: F29 - Unspecified psychosis not due to a substance or known physiological condition Assessment & Plan Continue current tx plan. Estimated LOS: days Justification for Cont. Inpt. risk of decompensation Samantha Gaston MD Apr 30, 2017 15:56
[2017-04-30 18:32] VITALS: BP 119/58; PULSE 77; RESP 17; TEMP 98.5; O2SAT 98
[2017-04-30] MEDS: QUEtiapine FUMARATE 300 MG TAB PO SCH (22:15)
[2017-05-01 05:43] VITALS: BP 105/61; PULSE 85; RESP 18; TEMP 98.2; O2SAT 100
[2017-05-01] MEDS: PHENYTOIN SODIUM 100 MG CAP PO SCH ×3 (06:00→20:23)
[2017-05-01] MEDS: QUEtiapine FUMARATE 100 MG TAB PO SCH ×2 (09:00→20:23)
[2017-05-01] MEDS: CHOLECALCIFEROL (VIT D3) 1000 UNIT TAB PO SCH (10:11)
--- NOTE | 2017-05-01 13:32 | HHI.PYPN ---
Subjective Remarks Pt seen and discussed with staff. Pt has been compliant and cooperative. He has been out of room, pacing hallways, laughing and smiling to himself. No agitation or aggression. No SI/HI. Mental Status Examination Appearance: Appropriate Consciousness: Alert Orientation: Person (at least) Motor Activity: Other (no abnormal motor movements noted) Speech: Unremarkable Language: Other (yes/no answers) Fund of Knowledge: Inadequate Attention and Concentration: Inadequate Memory: Impaired Mood: Other (happy) Affect: Other (smiling) Thought Process & Associations: Other (concrete) Thought Content: Appropriate, Other (limited sample) Hallucination Type: None Delusion Type: None Suicidal Ideation: No Suicidal Plan: No Suicidal Intention: No Homicidal Ideation: No Homicidal Plan: No Homicidal Intention: No Insight: Poor Judgment: Poor Results Labs Test 05/01/17 08:55 Phenytoin (Dilantin) Level 10.3 MCG/ML Vitals/IOs Vital Signs Date Time Temp Pulse Resp B/P (MAP) Pulse Ox O2 Delivery O2 Flow Rate FiO2 05/01/17 05:43 98.2 85 18 105/61 (76) 100 Intake and Output 05/01/17 05/01/17 05/02/17 08:00 16:00 00:00 Intake Total 240 ml 240 ml Balance 240 ml 240 ml Assessment & Plan Problem List: (1) Intermittent explosive disorder ICD Codes: F63.81 - Intermittent explosive disorder (2) Unspecified psychosis ICD Codes: F29 - Unspecified psychosis not due to a substance or known physiological condition Assessment & Plan continue current tx plan Estimated LOS: days Justification for Cont. Inpt. risk of decompensation Samantha Gaston MD May 01, 2017 13:31
[2017-05-01] MEDS ORDERED: PHENYTOIN SODIUM 100 MG CAP PO ONE (15:45)
--- NOTE | 2017-05-01 15:45 | HHI.PR ---
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 He presents to ED due to her recent history of disrobing and walking in the middle of the road. Patient has had episodes of aggression towards the the staff and other patients. He has been admitted to inpatient psych and medical team consulted for medical management. Intermittent explosive disorder- behavior has been good and cooperative - delightful - Treatment per psych Dandy-Walker syndrome Mental retardation - Chronic issue, treatment per psych Dilantin toxicity, acute Hx Seizure - Dilantin levels 42.7--->39.4--->32.0--->28.4--->22.7 --17 -- 11- 10.3 - Monitor of seizure activity - Increased dilantin to 100 mg tid - ff levels- if therapeutic 2 days in a row - we will sign off HTN improved- good readings no meds - DC enalapril 10 - DC amlodpine and monitor off meds altogether Vitamin D Deficiency - Replacement with Cholecalciferol 1,000units PO daily. VTE: ambulating Problem Qualifiers (1) HTN (hypertension): Qualified Codes: I10 - Essential (primary) hypertension Leo Cruz MD May 01, 2017 15:45
[2017-05-01 17:24] VITALS: BP 137/74; PULSE 92; RESP 16; TEMP 98.4; O2SAT 99
[2017-05-01] MEDS: QUEtiapine FUMARATE 300 MG TAB PO SCH (20:23)
[2017-05-02 05:40] VITALS: BP 115/56; PULSE 81; RESP 17; TEMP 97.2; O2SAT 99
[2017-05-02] MEDS: PHENYTOIN SODIUM 100 MG CAP PO SCH ×3 (06:00→21:05)
[2017-05-02] MEDS: CHOLECALCIFEROL (VIT D3) 1000 UNIT TAB PO SCH (09:47)
[2017-05-02] MEDS: QUEtiapine FUMARATE 100 MG TAB PO SCH ×2 (09:48→21:06)
--- NOTE | 2017-05-02 17:00 | HHI.PR ---
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 He presents to ED due to her recent history of disrobing and walking in the middle of the road. Patient has had episodes of aggression towards the the staff and other patients. He has been admitted to inpatient psych and medical team consulted for medical management. Intermittent explosive disorder- behavior has been good and cooperative - delightful - Treatment per psych Dandy-Walker syndrome Mental retardation - Chronic issue, treatment per psych Dilantin toxicity, acute- resolved Hx Seizure - Dilantin levels therpeutic 2 days in a row - 10.3- 12.3 - Monitor of seizure activity -dilantin to 100 mg tid - ff levels- periodically- in 1 week c/o primary service HTN improved- good readings no meds - DC enalapril /10 - DC amlodpine and monitor off meds altogether Vitamin D Deficiency - Replacement with Cholecalciferol 1,000units PO daily. VTE: ambulating HH sign soff- reconsult if needed Problem Qualifiers (1) HTN (hypertension): Qualified Codes: I10 - Essential (primary) hypertension Leo Cruz MD May 02, 2017 17:00
[2017-05-02 18:00] VITALS: BP 110/60; PULSE 80; RESP 16; TEMP 98; O2SAT 97
[2017-05-02] MEDS: QUEtiapine FUMARATE 300 MG TAB PO SCH (21:05)
[2017-05-03] MEDS: PHENYTOIN SODIUM 100 MG CAP PO SCH ×3 (05:27→21:03)
[2017-05-03 05:42] VITALS: BP 98/56; PULSE 88; RESP 16; TEMP 98.2; O2SAT 98
[2017-05-03] MEDS: QUEtiapine FUMARATE 100 MG TAB PO SCH ×2 (08:37→21:04)
[2017-05-03] MEDS: CHOLECALCIFEROL (VIT D3) 1000 UNIT TAB PO SCH (08:37)
[2017-05-03 08:45] VITALS: BP 98/56; PULSE 88; RESP 16; TEMP 98.2; O2SAT 98
--- NOTE | 2017-05-03 11:22 | HHI.PYPN ---
Subjective Remarks Progress note for May 02, 2017. No change. Patient has been less intrusive and less emotionally labile. Review of Systems Except as stated in HPI: all other systems reviewed are Neg Mental Status Examination Appearance: Appropriate Consciousness: Alert Orientation: Person (at least) Motor Activity: Other (no abnormal motor movements noted) Speech: Unremarkable Language: Other (yes/no answers) Fund of Knowledge: Inadequate Attention and Concentration: Inadequate Memory: Impaired Mood: Other (happy) Affect: Other (smiling) Thought Process & Associations: Other (concrete) Thought Content: Appropriate, Other (limited sample) Hallucination Type: None Delusion Type: None Suicidal Ideation: No Suicidal Plan: No Suicidal Intention: No Homicidal Ideation: No Homicidal Plan: No Homicidal Intention: No Insight: Poor Judgment: Poor Results Vitals/IOs Vital Signs Date Time Temp Pulse Resp B/P (MAP) Pulse Ox O2 Delivery O2 Flow Rate FiO2 05/03/17 08:45 98.2 88 16 98/56 (70) 98 Intake and Output 05/03/17 05/03/17 05/04/17 08:00 16:00 00:00 Intake Total 240 ml Balance 240 ml Assessment & Plan Problem List: (1) Intermittent explosive disorder ICD Codes: F63.81 - Intermittent explosive disorder Assessment & Plan Estimated LOS: days no evidence of psychotic thinking. Continue current treatment plan. Justification for Cont. Inpt. Likely to decompensate at lower level of care. Andi Avila MD May 03, 2017 11:22
[2017-05-03 17:56] VITALS: BP 143/81; PULSE 79; RESP 16; TEMP 98.3; O2SAT 99
[2017-05-03] MEDS: QUEtiapine FUMARATE 300 MG TAB PO SCH (21:03)
[2017-05-04 06:19] VITALS: BP 107/64; PULSE 91; RESP 18; TEMP 98.2; O2SAT 98
[2017-05-04] MEDS: PHENYTOIN SODIUM 100 MG CAP PO SCH ×3 (06:48→20:38)
[2017-05-04 06:57] VITALS: BP 107/64; PULSE 91; RESP 18; TEMP 98.2; O2SAT 98
[2017-05-04] MEDS: CHOLECALCIFEROL (VIT D3) 1000 UNIT TAB PO SCH (08:37)
[2017-05-04] MEDS: QUEtiapine FUMARATE 100 MG TAB PO SCH ×2 (08:37→20:39)
[2017-05-04 18:00] VITALS: BP 158/99; PULSE 69; RESP 18; TEMP 97.3; O2SAT 100
[2017-05-04] MEDS: QUEtiapine FUMARATE 300 MG TAB PO SCH (20:38)
[2017-05-05] MEDS: PHENYTOIN SODIUM 100 MG CAP PO SCH ×3 (06:00→21:07)
[2017-05-05] MEDS: CHOLECALCIFEROL (VIT D3) 1000 UNIT TAB PO SCH (09:02)
[2017-05-05] MEDS: QUEtiapine FUMARATE 100 MG TAB PO SCH ×2 (09:02→21:07)
[2017-05-05 18:34] VITALS: BP 134/80; PULSE 94; RESP 18; TEMP 98.4; O2SAT 98
[2017-05-05] MEDS: QUEtiapine FUMARATE 300 MG TAB PO SCH (21:07)
[2017-05-06] MEDS: PHENYTOIN SODIUM 100 MG CAP PO SCH ×3 (06:02→21:05)
[2017-05-06 06:13] VITALS: BP 140/78; PULSE 75; RESP 18; TEMP 97.6; O2SAT 100
[2017-05-06] MEDS: CHOLECALCIFEROL (VIT D3) 1000 UNIT TAB PO SCH (08:17)
[2017-05-06] MEDS: QUEtiapine FUMARATE 100 MG TAB PO SCH ×2 (08:18→21:05)
[2017-05-06 18:27] VITALS: BP 155/91; PULSE 93; RESP 16; TEMP 98.3; O2SAT 99
[2017-05-06] MEDS: LORazepam 1 MG TAB PO PRN (21:05)
[2017-05-06] MEDS: QUEtiapine FUMARATE 300 MG TAB PO SCH (21:05)
[2017-05-07] MEDS: PHENYTOIN SODIUM 100 MG CAP PO SCH ×3 (05:52→21:19)
[2017-05-07 06:03] VITALS: BP 133/70; PULSE 71; RESP 16; TEMP 98; O2SAT 99
[2017-05-07] MEDS: CHOLECALCIFEROL (VIT D3) 1000 UNIT TAB PO SCH (09:10)
[2017-05-07] MEDS: QUEtiapine FUMARATE 100 MG TAB PO SCH ×2 (09:10→21:19)
--- NOTE | 2017-05-07 12:38 | HHI.PYPN ---
Subjective Remarks Patient was seen and case discussed with nursing. Patient is pleasant and cooperative with exam. Behaving well on the unit. Compliant with his medications. Denies any psychotic symptoms this afternoon. Denies suicidal or homicidal ideation intent or plan. Cognitive deficits evident Mental Status Examination Appearance: Appropriate Consciousness: Alert Orientation: Person (at least) Motor Activity: Other (no abnormal motor movements noted) Speech: Unremarkable Language: Other (yes/no answers) Fund of Knowledge: Inadequate Attention and Concentration: Inadequate Memory: Impaired Mood: Other (happy) Affect: Other (smiling) Thought Process & Associations: Other (concrete) Thought Content: Appropriate, Other (limited sample) Hallucination Type: None Delusion Type: None Suicidal Ideation: No Suicidal Plan: No Suicidal Intention: No Homicidal Ideation: No Homicidal Plan: No Homicidal Intention: No Insight: Poor Judgment: Poor Results Vitals/IOs Vital Signs Date Time Temp Pulse Resp B/P (MAP) Pulse Ox O2 Delivery O2 Flow Rate FiO2 05/07/17 06:03 98.0 71 16 133/70 (91) 99 Assessment & Plan Problem List: (1) Intermittent explosive disorder ICD Codes: F63.81 - Intermittent explosive disorder Assessment & Plan Continue current treatment plan Justification for Cont. Inpt. Patient would decompensate in a less restrictive setting Chapo Woodward DO May 07, 2017 12:38
[2017-05-07 17:29] VITALS: BP 138/88; PULSE 82; RESP 18; TEMP 99; O2SAT 98
[2017-05-07] MEDS: QUEtiapine FUMARATE 300 MG TAB PO SCH (21:18)
[2017-05-08 05:00] VITALS: BP 109/57; PULSE 80; RESP 16; TEMP 97.5; O2SAT 99
[2017-05-08] MEDS: PHENYTOIN SODIUM 100 MG CAP PO SCH ×3 (05:26→20:27)
[2017-05-08] MEDS: CHOLECALCIFEROL (VIT D3) 1000 UNIT TAB PO SCH (08:53)
[2017-05-08] MEDS: QUEtiapine FUMARATE 100 MG TAB PO SCH ×2 (08:53→20:27)
--- NOTE | 2017-05-08 12:39 | HHI.PYPN ---
Subjective Remarks Patient was seen and case discussed with nursing. Patient is pleasant and cooperative with exam. Behaving well on the unit today, no outbursts. Denies any psychotic symptoms. Compliant with medications Mental Status Examination Appearance: Appropriate Consciousness: Alert Orientation: Person (at least) Motor Activity: Other (no abnormal motor movements noted) Speech: Unremarkable Language: Other (yes/no answers) Fund of Knowledge: Inadequate Attention and Concentration: Inadequate Memory: Impaired Mood: Other (happy) Affect: Other (smiling) Thought Process & Associations: Other (concrete) Thought Content: Appropriate, Other (limited sample) Hallucination Type: None Delusion Type: None Suicidal Ideation: No Suicidal Plan: No Suicidal Intention: No Homicidal Ideation: No Homicidal Plan: No Homicidal Intention: No Insight: Poor Judgment: Poor Results Vitals/IOs Vital Signs Date Time Temp Pulse Resp B/P (MAP) Pulse Ox O2 Delivery O2 Flow Rate FiO2 05/08/17 05:00 97.5 80 16 109/57 (74) 99 Assessment & Plan Problem List: (1) Intermittent explosive disorder ICD Codes: F63.81 - Intermittent explosive disorder Assessment & Plan Continue current treatment plan Justification for Cont. Inpt. Patient will decompensate in a less restrictive setting Chapo Woodward DO May 08, 2017 12:39
[2017-05-08 18:42] VITALS: BP 157/72; PULSE 91; RESP 17; TEMP 97.2; O2SAT 98
[2017-05-08] MEDS: QUEtiapine FUMARATE 300 MG TAB PO SCH (20:27)
[2017-05-09] MEDS: PHENYTOIN SODIUM 100 MG CAP PO SCH ×2 (05:40→13:17)
[2017-05-09 06:18] VITALS: BP 125/71; PULSE 84; RESP 16; TEMP 97.7; O2SAT 97
[2017-05-09] MEDS: CHOLECALCIFEROL (VIT D3) 1000 UNIT TAB PO SCH (08:49)
[2017-05-09] MEDS: QUEtiapine FUMARATE 100 MG TAB PO SCH (09:00)
--- NOTE | 2017-05-09 10:55 | HHI.DS ---
Psychiatry Discharge Summary Inpatient Psychiatric care?: Yes Advance Directive: No Reason Not Provided: Due to Patient Condition Mental Health AdvanceDirective: No Health Care Proxy: No Admission Admission Date Apr 04, 2017 at 17:18 Admission Diagnosis: (1) Intermittent explosive disorder ICD Code: F63.81 - Intermittent explosive disorder Brief History The patient is a 22-year-old man, domiciled in a residential facility, single, with psychiatric history of intellectual dysfunction related with Dandy-Walker syndrome. He has a recent history of disrobing multiple times , fleeing his residence and walking in the middle of the road. He has been observed and evaluated over the last several days, here in the emergency department. On several occasions, he has become physically aggressive and physically threatening towards staff and other patients. He has poor impulse control and he is in danger of harming himself and/or others. He has required frequent redirection and emergency treatment orders with injectable medications. He cannot be discharged to his [facility] at this time. He says that he has been mistreated there he doesn't want to go back. Patient reports that he denies suicidal and homicidal ideation, denies visual and auditory hallucinations. He reports that he has been taking his medications without medical side effects. As per nurse in charge, the patient has been only intermittently calm and following directions and recommendations in the ER. Tobacco Use In Past 30 Days: No Tobacco Past 30 Days Alcohol Use: Never Hospital Course Meds changed to stabalize mood and behavior. Results Blood Pressure 125 / 71 Vital Signs Date Time Temp Pulse Resp B/P (MAP) Pulse Ox O2 Delivery O2 Flow Rate FiO2 05/09/17 06:18 97.7 84 16 125/71 (89) 97 Laboratory Results Test 04/05/17 13:39 Cholesterol Level 203 MG/DL (120-200) HDL Cholesterol 62.6 MG/DL (40.0-60.0) Hemoglobin A1c 5.4 % (4.3-6.0) LDL Cholesterol 124 MG/DL (0-99) Triglycerides Level 81 MG/DL (42-150) Summary of Procedures none Pending results at discharge: No Medications # of Antipsychotic meds at D/C: 1 Appropriate >1 Antipsych meds?: 1 Approp Antipsych med options 1 - Minimum of three failed multiple trials of monotherapy. 2 - Documented plan to taper to monotherapy due to previous use of multiple meds OR cross-taper in progress at D/C. 3 - Documentation of augmentation of Clozapine. 4 - Justification other than those listed in allowable values 1-3, document here : Discharge Discharge Date: May 09, 2017 Discharge Diagnosis: (1) Intermittent explosive disorder ICD Code: F63.81 - Intermittent explosive disorder Pt Condition on Discharge: Stable Discharge Disposition: [facility] Discharge Instructions Diet Instructions: As Tolerated, No Restrictions Activities you can perform: Regular-No Restrictions Scheduled Appointment: By Facility Discharge Time <= 30 minutes Mental Status Examination Appearance: Appropriate Consciousness: Alert Orientation: Person (at least) Motor Activity: Other (no abnormal motor movements noted) Speech: Unremarkable Language: Other (yes/no answers) Fund of Knowledge: Inadequate Attention and Concentration: Inadequate Memory: Impaired Mood: Other (happy) Affect: Other (smiling) Thought Process & Associations: Other (concrete) Thought Content: Appropriate, Other (limited sample) Hallucination Type: None Delusion Type: None Suicidal Ideation: No Suicidal Plan: No Suicidal Intention: No Homicidal Ideation: No Homicidal Plan: No Homicidal Intention: No Insight: Poor Judgment: Poor Discharge/Advance Care Plan Health Problems: (1) Intermittent explosive disorder Goals to promote your health * To prevent worsening of your condition and complications * To maintain your health at the optimal level Directions to meet your goals Take your medications as prescribed Follow your dietary instruction Follow activity as directed Keep your appointments as scheduled Take your immunizations and boosters as scheduled If your symptoms worsen call your PCP, if no PCP go to Urgent Care Center or Emergency Room For 24/ questions related to your inpatient stay or results of tests pending at discharge, please contact Dr. Andi Avila at Smoking is Dangerous to Your Health. Avoid second hand smoking Andi Avila MD May 09, 2017 10:55
--- NOTE | 2017-05-13 10:51 | HHI.PYPN ---
Subjective Remarks Progress note for May 03, 2017. Patient more stable but requires placement. Review of Systems ROS Limitations: Clinical Condition Except as stated in HPI: all other systems reviewed are Neg Mental Status Examination Appearance: Appropriate Consciousness: Alert Orientation: Person (at least) Motor Activity: Other (no abnormal motor movements noted) Speech: Unremarkable Language: Other (yes/no answers) Fund of Knowledge: Inadequate Attention and Concentration: Inadequate Memory: Impaired Mood: Other (happy) Affect: Other (smiling) Thought Process & Associations: Other (concrete) Thought Content: Appropriate, Other (limited sample) Hallucination Type: None Delusion Type: None Suicidal Ideation: No Suicidal Plan: No Suicidal Intention: No Homicidal Ideation: No Homicidal Plan: No Homicidal Intention: No Insight: Poor Judgment: Poor Assessment & Plan Problem List: (1) Intermittent explosive disorder ICD Codes: F63.81 - Intermittent explosive disorder Assessment & Plan Estimated LOS: days continued treatment plan. Justification for Cont. Inpt. Likely to decompensate at lower level of care. Andi Avila MD May 13, 2017 10:51
--- NOTE | 2017-05-13 10:52 | HHI.PYPN ---
Subjective Remarks Psychiatric progress note for May 04, 2017. Patient seclusive to his room. Cooperative with staff. Review of Systems ROS Limitations: Clinical Condition Except as stated in HPI: all other systems reviewed are Neg Mental Status Examination Appearance: Appropriate Consciousness: Alert Orientation: Person (at least) Motor Activity: Other (no abnormal motor movements noted) Speech: Unremarkable Language: Other (yes/no answers) Fund of Knowledge: Inadequate Attention and Concentration: Inadequate Memory: Impaired Mood: Other (happy) Affect: Other (smiling) Thought Process & Associations: Other (concrete) Thought Content: Appropriate, Other (limited sample) Hallucination Type: None Delusion Type: None Suicidal Ideation: No Suicidal Plan: No Suicidal Intention: No Homicidal Ideation: No Homicidal Plan: No Homicidal Intention: No Insight: Poor Judgment: Poor Assessment & Plan Problem List: (1) Intermittent explosive disorder ICD Codes: F63.81 - Intermittent explosive disorder Assessment & Plan Estimated LOS: days remains stable. Justification for Cont. Inpt. Likely to decompensate at lower level of care. Andi Avila MD May 13, 2017 10:52
--- NOTE | 2017-05-13 10:53 | HHI.PYPN ---
Subjective Remarks Progress note for May 05, 2017. Patient remains stable and reclusive, in his room. Review of Systems ROS Limitations: Clinical Condition Except as stated in HPI: all other systems reviewed are Neg Mental Status Examination Appearance: Appropriate Consciousness: Alert Orientation: Person (at least) Motor Activity: Other (no abnormal motor movements noted) Speech: Unremarkable Language: Other (yes/no answers) Fund of Knowledge: Inadequate Attention and Concentration: Inadequate Memory: Impaired Mood: Other (happy) Affect: Other (smiling) Thought Process & Associations: Other (concrete) Thought Content: Appropriate, Other (limited sample) Hallucination Type: None Delusion Type: None Suicidal Ideation: No Suicidal Plan: No Suicidal Intention: No Homicidal Ideation: No Homicidal Plan: No Homicidal Intention: No Insight: Poor Judgment: Poor Assessment & Plan Problem List: (1) Intermittent explosive disorder ICD Codes: F63.81 - Intermittent explosive disorder Assessment & Plan Estimated LOS: days continue current treatment plan. Justification for Cont. Inpt. Likely to decompensate lower level of care. Andi Avila MD May 13, 2017 10:53
--- NOTE | 2017-05-13 10:54 | HHI.PYPN ---
Subjective Remarks Psychiatric progress note for May 06, 2017. Patient remains stable. Also remains a placement issue. Review of Systems ROS Limitations: Clinical Condition Except as stated in HPI: all other systems reviewed are Neg Mental Status Examination Appearance: Appropriate Consciousness: Alert Orientation: Person (at least) Motor Activity: Other (no abnormal motor movements noted) Speech: Unremarkable Language: Other (yes/no answers) Fund of Knowledge: Inadequate Attention and Concentration: Inadequate Memory: Impaired Mood: Other (happy) Affect: Other (smiling) Thought Process & Associations: Other (concrete) Thought Content: Appropriate, Other (limited sample) Hallucination Type: None Delusion Type: None Suicidal Ideation: No Suicidal Plan: No Suicidal Intention: No Homicidal Ideation: No Homicidal Plan: No Homicidal Intention: No Insight: Poor Judgment: Poor Assessment & Plan Problem List: (1) Intermittent explosive disorder ICD Codes: F63.81 - Intermittent explosive disorder Assessment & Plan Estimated LOS: days. Continue current medication treatment plan. Justification for Cont. Inpt. Likely to decompensate a lower level of care. Andi Avila MD May 13, 2017 10:54
== END 2017-05-09 13:24 | DRG 883 ==
LOC: NEPD 00:26 → NEDA 04-04 17:18 → H260 04-04 18:27 → H270 04-06 20:55 → H260 04-16 10:00
PROVIDERS: ADMIT Psychiatry & Neurology Psychiatry; ATTEND Psychiatry & Neurology Psychiatry
DX: F63.81 Intermittent explosive disorder (principal); F79 Unspecified intellectual disabilities; I10 Essential (primary) hypertension; F41.9 Anxiety disorder, unspecified; Q03.1 Atresia of foramina of Magendie and Luschka; R00.1 Bradycardia, unspecified; G40.909 Epilepsy, unspecified, not intractable, without status epilepticus; E55.9 Vitamin D deficiency, unspecified; R79.89 Other specified abnormal findings of blood chemistry; G47.00 Insomnia, unspecified; T42.0X5A Adverse effect of hydantoin derivatives, initial encounter
CPT/HCPCS: 80053; 80061; 80185; 82306; 82607; 83036; 84443; 85025; 93005; 96372; J1200; J2060; J2250; J3486